=== PATIENT | male | born 1940 | race American Indian/Alaskan Native ===

== ENCOUNTER 2017-07-02 14:46 | Inpatient (IN) | payer MEDICARE ==
[~2017-07-02 14:46] MED LIST: ATIVAN IV ONE
[2017-07-02] MEDS ORDERED: ATIVAN ONE ×2 (15:08→16:57)
[2017-07-02 15:58] LABS: Albumin 3.3 g/dL (3.9-5); Albumin/Globulin Ratio 1.2 %; Bilirubin,Total 0.4 mg/dL (0.1-1.2); Calcium 7.2 mg/dL (8.4-10.2); Chloride 85.6 mmol/L (98-107); Magnesium 2.1 mg/dL (1.7-2.3); Potassium 4.9 mmol/L (3.6-5.0); Total Protein 6.1 g/dL (6.3-8.2)
[2017-07-02 16:02] LABS: Mean Corpuscular HGB Conc 30 % (32-34); Mean Corpuscular Hemoglobin 29 pg (28-32); Mean Corpuscular Volume 96 fl (84-94); Platelet Count 130 K/mm3 (140-440); Red Blood Count 3.47 M/mm3 (3.65-5.03); Red Cell Distribution Width 15.4 % (13.2-15.2); White Blood Count 13.5 K/mm3 (4.5-11.0)
[2017-07-02 16:10] LABS: Hematocrit 33.1 % (35.5-45.6); Hemoglobin 9.9 gm/dl (11.8-15.2)
--- NOTE | 2017-07-02 16:25 | Emergency Department Report ---
ED General Adult HPI - General Chief complaint: Altered Mental Status Stated complaint: AMS Time Seen by Provider: 07/02/17 15:09 Source: EMS Mode of arrival: Stretcher Limitations: Altered Mental Status - History of Present Illness Initial comments: Pt is a 76 year old male pmhx of CHF, DM, CKD and HTN who presents with altered mental status. Pt was in assisted care facility when he had a seizure. Pt was unresponsive and EMS was called. Pt doesn't have a history of seizures . Further history is limited due to the patients altered mental status. - Related Data Home Medications Medication Instructions Recorded Confirmed Last Taken Ascorbic Acid [Vitamin C] 500 mg PO DAILY 06/26/17 07/02/17 Unknown Bisacodyl [Laxative] 5 mg PO DAILY 06/26/17 07/02/17 Unknown Calcitriol [Rocaltrol] 0.25 mcg PO DAILY 06/26/17 07/02/17 Unknown Carvedilol [Coreg] 12.5 mg PO BID 06/26/17 07/02/17 Unknown Ferrous Sulfate [Feosol 325 MG tab] 325 mg PO BID 06/26/17 07/02/17 Unknown Folic Acid [Folvite] 1 mg PO QDAY 06/26/17 07/02/17 Unknown Insulin Lispro [Humalog 100 0 units SQ AC 06/26/17 07/02/17 Unknown UNITS/ML Kwikpen] Multivitamin Tab W-MINERAL 1 each PO QD 06/26/17 07/02/17 Unknown [Multiple Vitamin/Mineral (Theragran M)] Previous Rx's Medication Instructions Recorded Last Taken Type Aspirin EC [Aspirin Enteric Coated 81 mg PO QDAY #90 tablet. 11/19/14 Unknown Rx TAB] amLODIPine [Norvasc] 5 mg PO DAILY #90 tab 11/19/14 Unknown Rx Cephalexin [Keflex] 500 mg PO Q8HR 3 Days 06/28/17 Unknown Rx Insulin NPH/Regular [NovoLIN 70/30] 10 unit SUB-Q BIDDIAB 30 Days 06/28/17 Unknown Rx Allergies Allergy/AdvReac Type Severity Reaction Status Date / Time No Known Allergies Allergy Unverified 11/17/14 12:29 ED Review of Systems ROS: Stated complaint: AMS Other details as noted in HPI ED Past Medical Hx - Past Medical History Previous Medical History?: Yes Hx Hypertension: Yes Hx Diabetes: Yes Hx Renal Disease: Yes - Surgical History Additional Surgical History: neck surgery - Social History Smoking Status: Unknown if ever smoked Substance Use Type: None - Medications Home Medications: Home Medications Medication Instructions Recorded Confirmed Last Taken Type Aspirin EC [Aspirin Enteric Coated 81 mg PO QDAY #90 tablet. 11/19/14 Unknown Rx TAB] amLODIPine [Norvasc] 5 mg PO DAILY #90 tab 11/19/14 07/02/17 Unknown Rx Ascorbic Acid [Vitamin C] 500 mg PO DAILY 06/26/17 07/02/17 Unknown History Bisacodyl [Laxative] 5 mg PO DAILY 06/26/17 07/02/17 Unknown History Calcitriol [Rocaltrol] 0.25 mcg PO DAILY 06/26/17 07/02/17 Unknown History Carvedilol [Coreg] 12.5 mg PO BID 06/26/17 07/02/17 Unknown History Ferrous Sulfate [Feosol 325 MG tab] 325 mg PO BID 06/26/17 07/02/17 Unknown History Folic Acid [Folvite] 1 mg PO QDAY 06/26/17 07/02/17 Unknown History Insulin Lispro [Humalog 100 0 units SQ AC 06/26/17 07/02/17 Unknown History UNITS/ML Kwikpen] Multivitamin Tab W-MINERAL 1 each PO QD 06/26/17 07/02/17 Unknown History [Multiple Vitamin/Mineral (Theragran M)] Cephalexin [Keflex] 500 mg PO Q8HR 3 Days 06/28/17 07/02/17 Unknown Rx Insulin NPH/Regular [NovoLIN 70/30] 10 unit SUB-Q BIDDIAB 30 Days 06/28/1707/02 Unknown Rx ED Physical Exam - General Limitations: Altered Mental Status General appearance: in no apparent distress, lethargic - Head Head exam: Present: atraumatic, normocephalic - Eye Eye exam: Present: normal appearance - ENT ENT exam: Present: mucous membranes moist - Neck Neck exam: Present: normal inspection - Respiratory Respiratory exam: Present: normal lung sounds bilaterally, other (right dialysis chest port ). Absent: respiratory distress - Cardiovascular Cardiovascular Exam: Present: regular rate, normal rhythm. Absent: systolic murmur, diastolic murmur, rubs, gallop - GI/Abdominal GI/Abdominal exam: Present: soft, normal bowel sounds - Rectal Rectal exam: Present: deferred - Extremities Exam Extremities exam: Present: normal inspection - Back Exam Back exam: Present: normal inspection - Neurological Exam Neurological exam: Present: altered - Psychiatric Psychiatric exam: Present: other (altered) - Skin Skin exam: Present: warm, dry, intact, normal color. Absent: rash ED Course Vital Signs 07/02/17 07/02/17 07/02/17 15:00 15:01 15:30 Pulse Rate 85 82 Respiratory 16 12 Rate Blood Pressure 141/72 141/72 138/72 O2 Sat by Pulse 96 97 100 Oximetry 07/02/17 07/02/17 07/02/17 16:00 16:52 17:00 Pulse Rate 80 82 82 Respiratory 11 L 11 L 11 L Rate Blood Pressure 133/68 138/72 139/71 O2 Sat by Pulse 99 100 99 Oximetry 07/02/17 07/02/17 07/02/17 17:30 17:48 19:00 Pulse Rate 81 75 Respiratory 12 16 10 L Rate Blood Pressure 142/74 146/79 O2 Sat by Pulse 100 100 100 Oximetry 07/02/17 07/02/17 07/02/17 19:16 19:30 19:46 Pulse Rate 78 34 L 98 H Respiratory 9 L 0 L 14 Rate Blood Pressure 146/79 159/87 O2 Sat by Pulse 100 48 L Oximetry 07/02/17 07/02/17 07/02/17 20:00 20:05 20:15 Pulse Rate 62 85 78 Respiratory 12 19 Rate Blood Pressure 50/31 109/74 109/74 O2 Sat by Pulse 99 Oximetry 07/02/17 07/02/17 20:30 20:46 Pulse Rate 96 H 105 H Respiratory 18 18 Rate Blood Pressure 108/75 114/80 O2 Sat by Pulse 99 100 Oximetry - Reevaluation(s) Reevaluation #1: 07/02/17 21:56 Pt has been admitted to the ICU he is stable on the ventilator - Central Line Placement Right Femoral Consent Obtained: emergent situation Time Out Performed: Yes Patient Placed on Monitor/Pulse Ox: Yes Prep: mask, gown, gloves Central Line Prep: Chlorhexidine scrub, sterile drapes applied Ultrasound Used for Placement: Yes Central Line Lumen Inserted: triple Bloods Obtained for Lab: Yes Central Line Position: good blood return, all ports aspirated, flus, sutured in place with 2-0 Dressing Applied: Tegaderm Patient Tolerated Procedure: no complications Complications: none - Intubation Time Out Performed: No Sedative: none Paralytic: other (none) Laryngoscope: Karrie Size: 3 ET Tube Size: 7.5 Tube Secured Location: teeth Tube Placement Confirmation: visualized tube passing t, equal breath sounds bilat, no breath sounds over epi Patient Tolerated Procedure: well, other ED Medical Decision Making - Lab Data Result diagrams: 07/02/17 15:03 07/02/17 Unknown Lab Results 07/02/17 07/02/17 07/02/17 Range/Units 15:03 15:12 15:35 WBC 13.5 H (4.5-11.0) K/mm3 RBC 3.47 L (3.65-5.03) M/mm3 Hgb 9.9 L (11.8-15.2) gm/dl Hct 33.1 L (35.5-45.6) % MCV 96 H (84-94) fl MCH 29 (28-32) pg MCHC 30 L (32-34) % RDW 15.4 H (13.2-15.2) % Plt Count 130 L (140-440) K/mm3 Add Manual Diff Complete Total Counted 100 Seg Neutrophils % [place]im[place] Seg Neuts % (Manual) 95.0 H (40.0-70.0) % Band Neutrophils % 0 % Lymphocytes % (Manual) 3.0 L (13.4-35.0) % Reactive Lymphs % (Man) 0 % Monocytes % (Manual) 2.0 (0.0-7.3) % Eosinophils % (Manual) 0 (0.0-4.3) % Basophils % (Manual) 0 (0.0-1.8) % Metamyelocytes % 0 % Myelocytes % 0 % Promyelocytes % 0 % Blast Cells % 0 % Nucleated RBC % Not Reportable Seg Neutrophils # Man 12.8 H (1.8-7.7) K/mm3 Band Neutrophils # 0.0 K/mm3 Lymphocytes # (Manual) 0.4 L (1.2-5.4) K/mm3 Abs React Lymphs (Man) 0.0 K/mm3 Monocytes # (Manual) 0.3 (0.0-0.8) K/mm3 Eosinophils # (Manual) 0.0 (0.0-0.4) K/mm3 Basophils # (Manual) 0.0 (0.0-0.1) K/mm3 Metamyelocytes # 0.0 K/mm3 Myelocytes # 0.0 K/mm3 Promyelocytes # 0.0 K/mm3 Blast Cells # 0.0 K/mm3 WBC Morphology Not Reportable Hypersegmented Neuts Not Reportable Hyposegmented Neuts Not Reportable Hypogranular Neuts Not Reportable Smudge Cells Not Reportable Toxic Granulation Not Reportable Toxic Vacuolation Not Reportable Dohle Bodies Not Reportable Pelger-Huet Anomaly Not Reportable [place] Rods Not Reportable Platelet Estimate Consistent w auto Clumped Platelets Not Reportable Plt Clumps, EDTA Not Reportable Large Platelets Not Reportable Giant Platelets Not Reportable Platelet Satelliting Not Reportable Plt Morphology Comment Not Reportable RBC Morphology Not Reportable Dimorphic RBCs Not Reportable Polychromasia Not Reportable Hypochromasia Not Reportable Poikilocytosis Few Anisocytosis Not Reportable Microcytosis Not Reportable Macrocytosis Not Reportable Spherocytes Not Reportable Pappenheimer Bodies Not Reportable Sickle Cells Not Reportable Target Cells Not Reportable Tear Drop Cells Not Reportable Ovalocytes Not Reportable Helmet Cells Not Reportable [place] Bodies Not Reportable [place] Rings Not Reportable Bianca Cells Not Reportable Bite Cells Not Reportable Crenated Cell Not Reportable Elliptocytes 1+ Acanthocytes (Spur) Not Reportable Rouleaux Not Reportable Hemoglobin C Crystals Not Reportable Schistocytes Not Reportable Malaria parasites Not Reportable Morales Bodies Not Reportable Hem Pathologist Commnt No Sodium (137-145) mmol/L Potassium (3.6-5.0) mmol/L Chloride (98-107) mmol/L Carbon Dioxide (22-30) mmol/L Anion Gap mmol/L BUN (9-20) mg/dL Creatinine (0.8-1.5) mg/dL Estimated GFR ml/min BUN/Creatinine Ratio % Glucose (75-100) mg/dL POC Glucose > 500 H (70-105) Osmolality 357 Mosm/kg Lactic Acid (0.7-2.0) mmol/L Calcium (8.4-10.2) mg/dL Phosphorus (2.5-4.5) mg/dL Magnesium (1.7-2.3) mg/dL Total Bilirubin (0.1-1.2) mg/dL AST (5-40) units/L ALT (7-56) units/L Alkaline Phosphatase (35-129) units/L Total Protein (6.3-8.2) g/dL Albumin (3.9-5) g/dL Albumin/Globulin Ratio % TSH (0.270-4.200) mlU/mL Urine Color (Yellow) Urine Turbidity (Clear) Urine pH (5.0-7.0) Ur Specific [place] (1.003-1.030) Urine Protein (Negative) mg/dL Urine Glucose (UA) (Negative) mg/dL Urine Ketones (Negative) mg/dL Urine Blood (Negative) Urine Nitrite (Negative) Urine Bilirubin (Negative) Urine Urobilinogen (<2.0) mg/dL Ur Leukocyte Esterase (Negative) Urine WBC (Auto) (0.0-6.0) /HPF Urine RBC (Auto) (0.0-6.0) /HPF U Epithel Cells (Auto) (0-13.0) /HPF Salicylates (2.8-20.0) mg/dL Urine Opiates Screen Urine Methadone Screen Acetaminophen (10.0-30.0) ug/mL Ur Barbiturates Screen Ur Phencyclidine Scrn Ur Amphetamines Screen U Benzodiazepines Scrn Urine Cocaine Screen U Marijuana (THC) Screen Drugs of Abuse Note Plasma/Serum Alcohol (0-0.07) gm% 07/02/17 07/02/17 07/02/17 Range/Units 17:25 17:25 17:49 WBC (4.5-11.0) K/mm3 RBC (3.65-5.03) M/mm3 Hgb (11.8-15.2) gm/dl Hct (35.5-45.6) % MCV (84-94) fl MCH (28-32) pg MCHC (32-34) % RDW (13.2-15.2) % Plt Count (140-440) K/mm3 Add Manual Diff Total Counted Seg Neutrophils % Seg Neuts % (Manual) (40.0-70.0) % Band Neutrophils % % Lymphocytes % (Manual) (13.4-35.0) % Reactive Lymphs % (Man) % Monocytes % (Manual) (0.0-7.3) % Eosinophils % (Manual) (0.0-4.3) % Basophils % (Manual) (0.0-1.8) % Metamyelocytes % % Myelocytes % % Promyelocytes % % Blast Cells % % Nucleated RBC % Seg Neutrophils # Man (1.8-7.7) K/mm3 Band Neutrophils # K/mm3 Lymphocytes # (Manual) (1.2-5.4) K/mm3 Abs React Lymphs (Man) K/mm3 Monocytes # (Manual) (0.0-0.8) K/mm3 Eosinophils # (Manual) (0.0-0.4) K/mm3 Basophils # (Manual) (0.0-0.1) K/mm3 Metamyelocytes # K/mm3 Myelocytes # K/mm3 Promyelocytes # K/mm3 Blast Cells # K/mm3 WBC Morphology Hypersegmented Neuts Hyposegmented Neuts Hypogranular Neuts Smudge Cells Toxic Granulation Toxic Vacuolation Dohle Bodies Pelger-Huet Anomaly [place] Rods Platelet Estimate Clumped Platelets Plt Clumps, EDTA Large Platelets Giant Platelets Platelet Satelliting Plt Morphology Comment RBC Morphology Dimorphic RBCs Polychromasia Hypochromasia Poikilocytosis Anisocytosis Microcytosis Macrocytosis Spherocytes Pappenheimer Bodies Sickle Cells Target Cells Tear Drop Cells Ovalocytes Helmet Cells Kim-[place] Bodies [place] Rings Bianca Cells Bite Cells Crenated Cell Elliptocytes Acanthocytes (Spur) Rouleaux Hemoglobin C Crystals Schistocytes Malaria parasites Morales Bodies Hem Pathologist Commnt Sodium (137-145) mmol/L Potassium (3.6-5.0) mmol/L Chloride (98-107) mmol/L Carbon Dioxide (22-30) mmol/L Anion Gap mmol/L BUN (9-20) mg/dL Creatinine (0.8-1.5) mg/dL Estimated GFR ml/min BUN/Creatinine Ratio % Glucose (75-100) mg/dL POC Glucose (70-105) Osmolality Mosm/kg Lactic Acid 7.80 H* (0.7-2.0) mmol/L Calcium (8.4-10.2) mg/dL Phosphorus (2.5-4.5) mg/dL Magnesium (1.7-2.3) mg/dL Total Bilirubin (0.1-1.2) mg/dL AST (5-40) units/L ALT (7-56) units/L Alkaline Phosphatase (35-129) units/L Total Protein (6.3-8.2) g/dL Albumin (3.9-5) g/dL Albumin/Globulin Ratio % TSH (0.270-4.200) mlU/mL Urine Color Yellow (Yellow) Urine Turbidity Clear (Clear) Urine pH 5.0 (5.0-7.0) Ur Specific [place] 1.018 (1.003-1.030) Urine Protein 100 mg/dl (Negative) mg/dL Urine Glucose (UA) >=500 (Negative) mg/dL Urine Ketones Neg (Negative) mg/dL Urine Blood Sm (Negative) Urine Nitrite Neg (Negative) Urine Bilirubin Neg (Negative) Urine Urobilinogen < 2.0 (<2.0) mg/dL Ur Leukocyte Esterase Neg (Negative) Urine WBC (Auto) 1.0 (0.0-6.0) /HPF Urine RBC (Auto) 2.0 (0.0-6.0) /HPF U Epithel Cells (Auto) 1.0 (0-13.0) /HPF Salicylates (2.8-20.0) mg/dL Urine Opiates Screen Presumptive negative Urine Methadone Screen Presumptive negative Acetaminophen (10.0-30.0) ug/mL Ur Barbiturates Screen Presumptive negative Ur Phencyclidine Scrn Presumptive negative Ur Amphetamines Screen Presumptive negative U Benzodiazepines Scrn Presumptive negative Urine Cocaine Screen Presumptive negative U Marijuana (THC) Screen Presumptive negative Drugs of Abuse Note Disclamer Plasma/Serum Alcohol (0-0.07) gm% 07/02/17 07/02/17 07/02/17 Range/Units 20:29 20:29 Unknown WBC (4.5-11.0) K/mm3 RBC (3.65-5.03) M/mm3 Hgb (11.8-15.2) gm/dl Hct (35.5-45.6) % MCV (84-94) fl MCH (28-32) pg MCHC (32-34) % RDW (13.2-15.2) % Plt Count (140-440) K/mm3 Add Manual Diff Total Counted Seg Neutrophils % Seg Neuts % (Manual) (40.0-70.0) % Band Neutrophils % % Lymphocytes % (Manual) (13.4-35.0) % Reactive Lymphs % (Man) % Monocytes % (Manual) (0.0-7.3) % Eosinophils % (Manual) (0.0-4.3) % Basophils % (Manual) (0.0-1.8) % Metamyelocytes % % Myelocytes % % Promyelocytes % % Blast Cells % % Nucleated RBC % Seg Neutrophils # Man (1.8-7.7) K/mm3 Band Neutrophils # K/mm3 Lymphocytes # (Manual) (1.2-5.4) K/mm3 Abs React Lymphs (Man) K/mm3 Monocytes # (Manual) (0.0-0.8) K/mm3 Eosinophils # (Manual) (0.0-0.4) K/mm3 Basophils # (Manual) (0.0-0.1) K/mm3 Metamyelocytes # K/mm3 Myelocytes # K/mm3 Promyelocytes # K/mm3 Blast Cells # K/mm3 WBC Morphology Hypersegmented Neuts Hyposegmented Neuts Hypogranular Neuts Smudge Cells Toxic Granulation Toxic Vacuolation Dohle Bodies Pelger-Huet Anomaly [place] Rods Platelet Estimate Clumped Platelets Plt Clumps, EDTA Large Platelets Giant Platelets Platelet Satelliting Plt Morphology Comment RBC Morphology Dimorphic RBCs Polychromasia Hypochromasia Poikilocytosis Anisocytosis Microcytosis Macrocytosis Spherocytes Pappenheimer Bodies Sickle Cells Target Cells Tear Drop Cells Ovalocytes Helmet Cells Kim-[place] Bodies [place] Rings Bianca Cells Bite Cells Crenated Cell Elliptocytes Acanthocytes (Spur) Rouleaux Hemoglobin C Crystals Schistocytes Malaria parasites Morales Bodies Hem Pathologist Commnt Sodium 129 L 125 L D (137-145) mmol/L Potassium 4.0 4.9 D (3.6-5.0) mmol/L Chloride 87.2 L 85.6 L (98-107) mmol/L Carbon Dioxide 18 L 19 L D (22-30) mmol/L Anion Gap 28 25 mmol/L BUN 51 H 50 H (9-20) mg/dL Creatinine 4.3 H 4.4 H D (0.8-1.5) mg/dL Estimated GFR 16 16 ml/min BUN/Creatinine Ratio 12 11 % Glucose 950 H* 1113 H* (75-100) mg/dL POC Glucose (70-105) Osmolality Mosm/kg Lactic Acid (0.7-2.0) mmol/L Calcium 7.1 L 7.2 L (8.4-10.2) mg/dL Phosphorus 2.90 (2.5-4.5) mg/dL Magnesium 2.20 2.10 (1.7-2.3) mg/dL Total Bilirubin 0.40 (0.1-1.2) mg/dL AST 31 (5-40) units/L ALT 23 (7-56) units/L Alkaline Phosphatase 139 H (35-129) units/L Total Protein 6.1 L (6.3-8.2) g/dL Albumin 3.3 L (3.9-5) g/dL Albumin/Globulin Ratio 1.2 % TSH (0.270-4.200) mlU/mL Urine Color (Yellow) Urine Turbidity (Clear) Urine pH (5.0-7.0) Ur Specific [place] (1.003-1.030) Urine Protein (Negative) mg/dL Urine Glucose (UA) (Negative) mg/dL Urine Ketones (Negative) mg/dL Urine Blood (Negative) Urine Nitrite (Negative) Urine Bilirubin (Negative) Urine Urobilinogen (<2.0) mg/dL Ur Leukocyte Esterase (Negative) Urine WBC (Auto) (0.0-6.0) /HPF Urine RBC (Auto) (0.0-6.0) /HPF U Epithel Cells (Auto) (0-13.0) /HPF Salicylates (2.8-20.0) mg/dL Urine Opiates Screen Urine Methadone Screen Acetaminophen (10.0-30.0) ug/mL Ur Barbiturates Screen Ur Phencyclidine Scrn Ur Amphetamines Screen U Benzodiazepines Scrn Urine Cocaine Screen U Marijuana (THC) Screen Drugs of Abuse Note Plasma/Serum Alcohol (0-0.07) gm% 07/02/17 07/02/17 07/02/17 Range/Units Unknown Unknown Unknown WBC (4.5-11.0) K/mm3 RBC (3.65-5.03) M/mm3 Hgb (11.8-15.2) gm/dl Hct (35.5-45.6) % MCV (84-94) fl MCH (28-32) pg MCHC (32-34) % RDW (13.2-15.2) % Plt Count (140-440) K/mm3 Add Manual Diff Total Counted Seg Neutrophils % Seg Neuts % (Manual) (40.0-70.0) % Band Neutrophils % % Lymphocytes % (Manual) (13.4-35.0) % Reactive Lymphs % (Man) % Monocytes % (Manual) (0.0-7.3) % Eosinophils % (Manual) (0.0-4.3) % Basophils % (Manual) (0.0-1.8) % Metamyelocytes % % Myelocytes % % Promyelocytes % % Blast Cells % % Nucleated RBC % Seg Neutrophils # Man (1.8-7.7) K/mm3 Band Neutrophils # K/mm3 Lymphocytes # (Manual) (1.2-5.4) K/mm3 Abs React Lymphs (Man) K/mm3 Monocytes # (Manual) (0.0-0.8) K/mm3 Eosinophils # (Manual) (0.0-0.4) K/mm3 Basophils # (Manual) (0.0-0.1) K/mm3 Metamyelocytes # K/mm3 Myelocytes # K/mm3 Promyelocytes # K/mm3 Blast Cells # K/mm3 WBC Morphology Hypersegmented Neuts Hyposegmented Neuts Hypogranular Neuts Smudge Cells Toxic Granulation Toxic Vacuolation Dohle Bodies Pelger-Huet Anomaly [place] Rods Platelet Estimate Clumped Platelets Plt Clumps, EDTA Large Platelets Giant Platelets Platelet Satelliting Plt Morphology Comment RBC Morphology Dimorphic RBCs Polychromasia Hypochromasia Poikilocytosis Anisocytosis Microcytosis Macrocytosis Spherocytes Pappenheimer Bodies Sickle Cells Target Cells Tear Drop Cells Ovalocytes Helmet Cells Kim-[place] Bodies [place] Rings [place] Cells Bite Cells Crenated Cell Elliptocytes Acanthocytes (Spur) Rouleaux Hemoglobin C Crystals Schistocytes Malaria parasites Morales Bodies Hem Pathologist Commnt Sodium (137-145) mmol/L Potassium (3.6-5.0) mmol/L Chloride (98-107) mmol/L Carbon Dioxide (22-30) mmol/L Anion Gap mmol/L BUN (9-20) mg/dL Creatinine (0.8-1.5) mg/dL Estimated GFR ml/min BUN/Creatinine Ratio % Glucose (75-100) mg/dL POC Glucose (70-105) Osmolality Mosm/kg Lactic Acid 6.30 H* (0.7-2.0) mmol/L Calcium (8.4-10.2) mg/dL Phosphorus (2.5-4.5) mg/dL Magnesium (1.7-2.3) mg/dL Total Bilirubin (0.1-1.2) mg/dL AST (5-40) units/L ALT (7-56) units/L Alkaline Phosphatase (35-129) units/L Total Protein (6.3-8.2) g/dL Albumin (3.9-5) g/dL Albumin/Globulin Ratio % TSH 3.200 (0.270-4.200) mlU/mL Urine Color (Yellow) Urine Turbidity (Clear) Urine pH (5.0-7.0) Ur Specific [place] (1.003-1.030) Urine Protein (Negative) mg/dL Urine Glucose (UA) (Negative) mg/dL Urine Ketones (Negative) mg/dL Urine Blood (Negative) Urine Nitrite (Negative) Urine Bilirubin (Negative) Urine Urobilinogen (<2.0) mg/dL Ur Leukocyte Esterase (Negative) Urine WBC (Auto) (0.0-6.0) /HPF Urine RBC (Auto) (0.0-6.0) /HPF U Epithel Cells (Auto) (0-13.0) /HPF Salicylates < 0.3 L (2.8-20.0) mg/dL Urine Opiates Screen Urine Methadone Screen Acetaminophen (10.0-30.0) ug/mL Ur Barbiturates Screen Ur Phencyclidine Scrn Ur Amphetamines Screen U Benzodiazepines Scrn Urine Cocaine Screen U Marijuana (THC) Screen Drugs of Abuse Note Plasma/Serum Alcohol (0-0.07) gm% 07/02/17 07/02/17 Range/Units Unknown Unknown WBC (4.5-11.0) K/mm3 RBC (3.65-5.03) M/mm3 Hgb (11.8-15.2) gm/dl Hct (35.5-45.6) % MCV (84-94) fl MCH (28-32) pg MCHC (32-34) % RDW (13.2-15.2) % Plt Count (140-440) K/mm3 Add Manual Diff Total Counted Seg Neutrophils % Seg Neuts % (Manual) (40.0-70.0) % Band Neutrophils % % Lymphocytes % (Manual) (13.4-35.0) % Reactive Lymphs % (Man) % Monocytes % (Manual) (0.0-7.3) % Eosinophils % (Manual) (0.0-4.3) % Basophils % (Manual) (0.0-1.8) % Metamyelocytes % % Myelocytes % % Promyelocytes % % Blast Cells % % Nucleated RBC % Seg Neutrophils # Man (1.8-7.7) K/mm3 Band Neutrophils # K/mm3 Lymphocytes # (Manual) (1.2-5.4) K/mm3 Abs React Lymphs (Man) K/mm3 Monocytes # (Manual) (0.0-0.8) K/mm3 Eosinophils # (Manual) (0.0-0.4) K/mm3 Basophils # (Manual) (0.0-0.1) K/mm3 Metamyelocytes # K/mm3 Myelocytes # K/mm3 Promyelocytes # K/mm3 Blast Cells # K/mm3 WBC Morphology Hypersegmented Neuts Hyposegmented Neuts Hypogranular Neuts Smudge Cells Toxic Granulation Toxic Vacuolation Dohle Bodies Pelger-Huet Anomaly [place] Rods Platelet Estimate Clumped Platelets Plt Clumps, EDTA Large Platelets Giant Platelets Platelet Satelliting Plt Morphology Comment RBC Morphology Dimorphic RBCs Polychromasia Hypochromasia Poikilocytosis Anisocytosis Microcytosis Macrocytosis Spherocytes Pappenheimer Bodies Sickle Cells Target Cells Tear Drop Cells Ovalocytes Helmet Cells Kim-[place] Bodies [place] Rings [place] Cells Bite Cells Crenated Cell Elliptocytes Acanthocytes (Spur) Rouleaux Hemoglobin C Crystals Schistocytes Malaria parasites Morales Bodies Hem Pathologist Commnt Sodium (137-145) mmol/L Potassium (3.6-5.0) mmol/L Chloride (98-107) mmol/L Carbon Dioxide (22-30) mmol/L Anion Gap mmol/L BUN (9-20) mg/dL Creatinine (0.8-1.5) mg/dL Estimated GFR ml/min BUN/Creatinine Ratio % Glucose (75-100) mg/dL POC Glucose (70-105) Osmolality Mosm/kg Lactic Acid (0.7-2.0) mmol/L Calcium (8.4-10.2) mg/dL Phosphorus (2.5-4.5) mg/dL Magnesium (1.7-2.3) mg/dL Total Bilirubin (0.1-1.2) mg/dL AST (5-40) units/L ALT (7-56) units/L Alkaline Phosphatase (35-129) units/L Total Protein (6.3-8.2) g/dL Albumin (3.9-5) g/dL Albumin/Globulin Ratio % TSH (0.270-4.200) mlU/mL Urine Color (Yellow) Urine Turbidity (Clear) Urine pH (5.0-7.0) Ur Specific [place] (1.003-1.030) Urine Protein (Negative) mg/dL Urine Glucose (UA) (Negative) mg/dL Urine Ketones (Negative) mg/dL Urine Blood (Negative) Urine Nitrite (Negative) Urine Bilirubin (Negative) Urine Urobilinogen (<2.0) mg/dL Ur Leukocyte Esterase (Negative) Urine WBC (Auto) (0.0-6.0) /HPF Urine RBC (Auto) (0.0-6.0) /HPF U Epithel Cells (Auto) (0-13.0) /HPF Salicylates (2.8-20.0) mg/dL Urine Opiates Screen Urine Methadone Screen Acetaminophen < 15.0 (10.0-30.0) ug/mL Ur Barbiturates Screen Ur Phencyclidine Scrn Ur Amphetamines Screen U Benzodiazepines Scrn Urine Cocaine Screen U Marijuana (THC) Screen Drugs of Abuse Note Plasma/Serum Alcohol < 0.01 (0-0.07) gm% - Radiology Data Radiology results: report reviewed CT head: Shows slight interval increase in the ventricles Cxr: shows s/p ETT placement and right hemodialysis catheter. - Medical Decision Making Cdx: DKA ddx: HONK, subdural hemorrhage, PNA, sepsis,stemi I will give patient cbc,cmp, fluids, troponin ,cxr insulin drip, fluids, blood cultures Patient had a cardiac arrest in the ED he recieved chest compressions for approximately 10+ minutes. Pt regained ROSC in the ED. He will be placed on insulin gtt and levophed gtt with emperic antibiotics . He had to be intubated due to respiratory failure. Critical Care Time: Yes (70) Critical care time in (mins) excluding proc time.: 70 Critical care attestation.: If time is entered above; I have spent that time in minutes in the direct care of this critically ill patient, excluding procedure time. Critical care time spent at patients bedside 40 minutes Critical care time spent reviewing labratory findings 20 minutes Critical care time spent reviewing old medical records 10 minutes Critical care time spent with consultants 0 minutes Critical care time spent with patient's family 0 minutes. ED Disposition Clinical Impression: Seizures, Cardiac arrest, Lactic acid acidosis, Metabolic encephalopathy Respiratory failure Qualifiers: Chronicity: acute Respiratory failure complication: hypoxia and hypercapnia Qualified Code(s): J96.01 - Acute respiratory failure with hypoxia; J96.02 - Acute respiratory failure with hypercapnia; J96.02 - Acute respiratory failure with hypercapnia; J96.02 - Acute respiratory failure with hypercapnia DKA (diabetic ketoacidoses) Qualifiers: Diabetes mellitus type: type 1 Diabetes mellitus complication detail: with coma Qualified Code(s): E10.11 - Type 1 diabetes mellitus with ketoacidosis with coma Disposition: DC-09 OP ADMIT IP TO THIS HOSP Is pt being admited?: Yes Does the pt Need Aspirin: No Condition: Stable
[2017-07-02] MEDS ORDERED: NACL 0.9% 1000 ML 1,000 ML IV ONE ×5 (16:33→19:04)
--- NOTE | 2017-07-02 16:44 | Cat Scan Report ---
CT HEAD WITHOUT CONTRAST INDICATION: Seizures, altered mental status. COMPARISON: 11/17/2014. FINDINGS: Noncontrast head CT demonstrates overall symmetric, age-appropriate ventricles and sulci, though diffuse prominence/enlargement of the ventricles noted. An index maximum transverse measurement of the left frontal horn now is 1.6 cm, axial series 2, image 20, previously 1 cm. Moderate periventricular and few white matter hypodense small vessel ischemic disease. Small basal ganglia lacunar infarcts also again noted. No acute infarct, hemorrhage, mass effect or midline shift. No abnormal extra axial fluid collections. Exam in part limited due to motion artifact. Grossly normal posterior fossa with preserved basilar cisterns. Small 4 mm left maxillary sinus mucous retention cyst again noted. Clear remainder imaged paranasal sinuses and mastoid air cells. Mild ICA atherosclerotic calcifications. Normal calvarium and scalp. Edentulous jaw. CONCLUSION: 1. Interval ventricular enlargement since October 2014, as detailed above, possibly progression of atrophy, though normal pressure hydrocephalus may be correlated for clinically in an appropriate setting. 2. No acute intracranial CT abnormality with other findings, as above. Thank you for the opportunity to participate in this patient's care.
[2017-07-02 16:48] LABS: Basophils % (Manual) 0 % (0.0-1.8); Blastocytes % (Manual) 0 %; Eosinophils % (Manual) 0 % (0.0-4.3)
[2017-07-02 16:49] LABS: Elliptocytes 1+
[2017-07-02 16:50] LABS: Diff Status Complete; Platelet Estimate Consistent w Auto; Poikilocytosis Few
[2017-07-02 17:42] LABS: Urine Drugs of Abuse Note Disclamer
[2017-07-02 17:56] LABS: Bilirubin,Urine NEG (Negative); Blood,Urine SM (Negative); Ketones,Urine NEG (Negative); Leukocyte Esterase,Urine NEG (Negative); Nitrite,Urine NEG (Negative); Urobilinogen,Urine < 2.0 mg/dL (<2.0)
--- NOTE | 2017-07-02 19:25 | XRay Report ---
FINAL REPORT EXAM: XR CHEST 1V AP HISTORY: chest pain TECHNIQUE: Chest single AP PRIORS: None. FINDINGS: There is right dialysis catheter catheter tip at the SVC. Cardiac silhouette is within normal range for size given technique. There is a small right pleural effusion. Left lung is unremarkable. Pulmonary vasculature is within normal limits. There is no evidence for pneumothorax. IMPRESSION: Right pleural effusion Dialysis catheter in satisfactory position
[2017-07-02] MEDS ORDERED: LEVOPHED DRIP 4 MG/NS 250 ML 4 MG/250 ML BAG IV ONE (19:32)
[2017-07-02] MEDS ORDERED: LEVOPHED DRIP 4 MG/NS 250 ML 4 MG/250 ML BAG IV SCH (19:45)
[2017-07-02] MEDS ORDERED: ATROPINE IV ONE (19:50)
[2017-07-02] MEDS ORDERED: ADRENALIN IV ONE (19:50)
[2017-07-02] MEDS ORDERED: VASELINE LIP THERAPY TP PRN (20:05)
--- NOTE | 2017-07-02 20:11 | History and Physical Report ---
History of Present Illness Chief complaint: Confused History of present illness: 76 YO Male [employer] Res[employer] with HTN, DM, ESRD on HD(M,W,F), Severe Malnutrition, presents to ED for evaluation. Pt unable to provide history. Pt found to have new onset seizure at [facility] that was witnessed by SNF staff. EMS was notified and upon arrival patient was found to by stuporous. Pt transported to [facility] for evaluation. Pt seen and evaluated in ED and found to be in respiratory distress. Pt subsequently found to have asystolic arrest. Pt treated IAW ACLS protocol with return of perfusing cardiac rhythm. Pt found to have Acute respiratory failure and was intubated and placed on vent support. Pt also found to be hypotensive after cardiac arrest and placed on pressor support. Serum glucose found to be above 1000, and patient was in DKA. DKA protocol initiated. Pt admitted to ICU. Past History Past Medical History: diabetes, ESRD, hypertension Past Surgical History: Other (Permacath placement) Social history: single. denies: smoking, alcohol abuse Family history: no significant family history Medications and Allergies Allergies Allergy/AdvReac Type Severity Reaction Status Date / Time No Known Allergies Allergy Unverified 11/17/14 12:29 Home Medications Medication Instructions Recorded Confirmed Last Taken Type Aspirin EC [Aspirin Enteric Coated 81 mg PO QDAY #90 tablet. 11/19/14 Unknown Rx TAB] amLODIPine [Norvasc] 5 mg PO DAILY #90 tab 11/19/14 07/02/17 Unknown Rx Ascorbic Acid [Vitamin C] 500 mg PO DAILY 06/26/17 07/02/17 Unknown History Bisacodyl [Laxative] 5 mg PO DAILY 06/26/17 07/02/17 Unknown History Calcitriol [Rocaltrol] 0.25 mcg PO DAILY 06/26/17 07/02/17 Unknown History Carvedilol [Coreg] 12.5 mg PO BID 06/26/17 07/02/17 Unknown History Ferrous Sulfate [Feosol 325 MG tab] 325 mg PO BID 06/26/17 07/02/17 Unknown History Folic Acid [Folvite] 1 mg PO QDAY 06/26/17 07/02/17 Unknown History Insulin Lispro [Humalog 100 0 units SQ AC 06/26/17 07/02/17 Unknown History UNITS/ML Kwikpen] Multivitamin Tab W-MINERAL 1 each PO QD 06/26/17 07/02/17 Unknown History [Multiple Vitamin/Mineral (Theragran M)] Cephalexin [Keflex] 500 mg PO Q8HR 3 Days 06/28/17 07/02/17 Unknown Rx Insulin NPH/Regular [NovoLIN 70/30] 10 unit SUB-Q BIDDIAB 30 Days 06/28/1707/02 Unknown Rx Active Meds: Active Medications Hydrophilic Ointment (Vaseline Lip Therapy) 1 applic TP Q2HR PRN PRN Reason: Dry Lips Review of Systems ROS unobtainable: due to mental status Exam - Constitutional Vitals: Temp Pulse Resp BP Pulse Ox 81 16 142/74 100 07/02/17 17:30 07/02/17 17:48 07/02/17 17:30 07/02/17 17:48 General appearance: Present: severe distress - EENT Eyes: Present: miosis - Neck Neck: Present: supple, normal ROM - Respiratory Respiratory effort: labored Respiratory: bilateral: diminished, rhonchi - Cardiovascular Heart Sounds: Present: S1 & S2. Absent: rub, click - Extremities Extremities: pulses symmetrical, No edema Extremity abnormal: edema Peripheral Pulses: abnormal (Capillary Refill: 4 seconds) - Abdominal General gastrointestinal: Present: soft, non-tender, non-distended Male genitourinary: Present: normal - Rectal Rectal Exam: normal exam-external/orifice - Integumentary Integumentary: Present: clear, dry, clammy, decreased turgor - Musculoskeletal Musculoskeletal: generalized weakness - Psychiatric Psychiatric: no intact judgment & insight, no memory intact - Neurologic Neurologic: focal deficits, no gait normal Results - Labs CBC & Chem 7: 07/02/17 15:03 07/03/17 02:15 Labs: Abnormal lab results 07/02/17 07/02/17 07/02/17 Range/Units 15:03 15:12 17:49 WBC 13.5 H (4.5-11.0) K/mm3 RBC 3.47 L (3.65-5.03) M/mm3 Hgb 9.9 L (11.8-15.2) gm/dl Hct 33.1 L (35.5-45.6) % MCV 96 H (84-94) fl MCHC 30 L (32-34) % RDW 15.4 H (13.2-15.2) % Plt Count 130 L (140-440) K/mm3 Seg Neuts % (Manual) 95.0 H (40.0-70.0) % Lymphocytes % (Manual) 3.0 L (13.4-35.0) % Seg Neutrophils # Man 12.8 H (1.8-7.7) K/mm3 Lymphocytes # (Manual) 0.4 L (1.2-5.4) K/mm3 Sodium (137-145) mmol/L Chloride (98-107) mmol/L Carbon Dioxide (22-30) mmol/L BUN (9-20) mg/dL Creatinine (0.8-1.5) mg/dL Glucose (75-100) mg/dL POC Glucose > 500 H (70-105) Lactic Acid 7.80 H* (0.7-2.0) mmol/L Calcium (8.4-10.2) mg/dL Alkaline Phosphatase (35-129) units/L Total Protein (6.3-8.2) g/dL Albumin (3.9-5) g/dL Salicylates (2.8-20.0) mg/dL 07/02/17 07/02/17 07/02/17 Range/Units Unknown Unknown Unknown WBC (4.5-11.0) K/mm3 RBC (3.65-5.03) M/mm3 Hgb (11.8-15.2) gm/dl Hct (35.5-45.6) % MCV (84-94) fl MCHC (32-34) % RDW (13.2-15.2) % Plt Count (140-440) K/mm3 Seg Neuts % (Manual) (40.0-70.0) % Lymphocytes % (Manual) (13.4-35.0) % Seg Neutrophils # Man (1.8-7.7) K/mm3 Lymphocytes # (Manual) (1.2-5.4) K/mm3 Sodium 125 L D (137-145) mmol/L Chloride 85.6 L (98-107) mmol/L Carbon Dioxide 19 L D (22-30) mmol/L BUN 50 H (9-20) mg/dL Creatinine 4.4 H D (0.8-1.5) mg/dL Glucose 1113 H* (75-100) mg/dL POC Glucose (70-105) Lactic Acid 6.30 H* (0.7-2.0) mmol/L Calcium 7.2 L (8.4-10.2) mg/dL Alkaline Phosphatase 139 H (35-129) units/L Total Protein 6.1 L (6.3-8.2) g/dL Albumin 3.3 L (3.9-5) g/dL Salicylates < 0.3 L (2.8-20.0) mg/dL Assessment and Plan - Patient Problems (1) Acute respiratory failure Current Visit: No Status: Acute Qualifiers: Respiratory failure complication: R Plan to address problem: Pt intubated, sedated, placed on vent support, Pulmonary team consulted, ABG, wean vent as tolerated, nebulizer therapy, SBT in AM, Sedation holiday in AM, The high probability of a clinically significant, sudden or life threatening deterioration of the [Cardiac, pulmonary, endocrine, renal] system(s) required my full and direct attention, intervention and personal management. The aggregate critical care time was [70] minutes. This time is in addition to time spent performing reported procedures but includes the following: [x] Data Review and interpretation [x] Patient assessment and monitoring of vital signs [x] Documentation [x] Medication orders and management (2) DKA (diabetic ketoacidoses) Current Visit: Yes Status: Acute Qualifiers: Diabetes mellitus type: type 1 Diabetes mellitus complication detail: with coma Qualified Code(s): E10.11 - Type 1 diabetes mellitus with ketoacidosis with coma Plan to address problem: Insulin drip protocol, serial bmp, monitor anion gap, IVF resuscitation, (3) Cardiac arrest Current Visit: Yes Status: Acute (4) Lactic acid acidosis Current Visit: Yes Status: Acute Plan to address problem: Secondary to DKA, and Cardiac arrest, IVF resuscitation, treat DKA, repeat lactic acid level (5) Metabolic encephalopathy Current Visit: Yes Status: Acute Plan to address problem: Secondary to DKA complicated by cardiac arrest, supportive care, neuro checks. CT head (6) Anoxic brain damage Current Visit: Yes Status: Suspected Plan to address problem: S/P Cardiac arrest. Supportive care, neuro checks, Treat DKA, CT head, Neuro checks during sedation holiday. Repeat CT head if no improvement in neurologic status. (7) DVT prophylaxis Current Visit: No Status: Acute
[2017-07-02] MEDS ORDERED: MILK OF MAGNESIA PO PRN (20:17)
[2017-07-02] MEDS ORDERED: ALUM-MAG HYDROX-SIMETH 200-200-20MG/5ML PO PRN (20:17)
[2017-07-02] MEDS ORDERED: DULCOLAX PR PRN (20:17)
[2017-07-02] MEDS ORDERED: VANCOMYCIN VIAL IV ONE (20:19)
[2017-07-02] MEDS ORDERED: D50W (25GM) Vial IV PRN (20:22)
[2017-07-02 20:47] LABS: Calcium 7.1 mg/dL (8.4-10.2); Chloride 87.2 mmol/L (98-107); Magnesium 2.2 mg/dL (1.7-2.3); Phosphorous 2.9 mg/dL (2.5-4.5)
[2017-07-02] MEDS ORDERED: NACL 0.9% 1000 ML IV ONE (21:00)
[2017-07-02] MEDS ORDERED: VANCOMYCIN PHARMACY TO DOSE IV SCH (21:00)
[2017-07-02] MEDS ORDERED: NACL 0.9% 1000 ML 1,000 ML ONE (21:18)
[2017-07-02] MEDS ORDERED: NovoLIN R 100 UNITS in NACL 0.9% 99 ML IV SCH (21:30)
[2017-07-02] MEDS ORDERED: ZOSYN/NS 4.5GM/100ML 4.5 GM/100 ML VIAL IV SCH (22:00)
[2017-07-02] MEDS ORDERED: VANCOMYCIN/NS 1 GM/250 ML 1 GM/250 ML BAG IV ONE (22:00)
[2017-07-02] MEDS ORDERED: FEOSOL PO SCH (22:00)
[2017-07-02 22:13] LABS: Calcium 6.8 mg/dL (8.4-10.2); Chloride 93.7 mmol/L (98-107); Potassium 4.6 mmol/L (3.6-5.0)
[2017-07-02] MEDS ORDERED: PEPCID IV ONE (22:23)
[2017-07-02] MEDS: NACL 0.9% 1000 ML 1,000 ML IV ONE (23:30)
[2017-07-02] MEDS: COREG PO SCH (23:52)
[2017-07-03] MEDS: NACL 0.9% 1000 ML 1,000 ML IV ONE (00:01)
[2017-07-03 00:12] LABS: Calcium 6.7 mg/dL (8.4-10.2); Chloride 94.6 mmol/L (98-107); Potassium 4.7 mmol/L (3.6-5.0)
[2017-07-03] MEDS: ZOSYN/NS 2.25 GM/50ML 2.25 GM/50 ML BAG IV SCH ×4 (01:05→22:17)
[2017-07-03 01:47] LABS: Calcium 6.6 mg/dL (8.4-10.2); Chloride 96.4 mmol/L (98-107); Potassium 4.3 mmol/L (3.6-5.0)
[2017-07-03 02:54] LABS: Calcium 6.6 mg/dL (8.4-10.2); Chloride 97.6 mmol/L (98-107)
[2017-07-03 04:51] LABS: ISTAT Base Excess -9; ISTAT HCO3 16.9; ISTAT PCO2 33.5 (35-45); ISTAT PH 7.311 (7.35-7.45); ISTAT PO2 73 (80-105); ISTAT SO2 93; ISTAT TCO2 18
[2017-07-03 04:59] LABS: Calcium 6.8 mg/dL (8.4-10.2); Chloride 98.5 mmol/L (98-107); Potassium 3.9 mmol/L (3.6-5.0)
--- NOTE | 2017-07-03 07:16 | XRay Report ---
Single view chest: Compared to 07/02/17. History: ET tube placement. Findings: Endotracheal tube is in the right mainstem bronchus. It should be withdrawn approximately 4 cm. Stable right large bore venous catheter. Moderate right pleural effusion with mild pulmonary venous congestion. Impression: Tip of endotracheal tube should be adjusted as detailed above.
--- NOTE | 2017-07-03 07:34 | XRay Report ---
Single view chest: Compared to 07/02/17. History: Followup of respiratory failure. Findings: Normal cardiomediastinal silhouette. Stable support system. Bilateral airspace opacities. Increasing airspace opacities compared to previous study. Impression: Probably fluid overload or congestive failure. Less likely bilateral pneumonia
[2017-07-03] MEDS: D5/0.45NS 1,000 ML IV SCH (10:27)
--- NOTE | 2017-07-03 11:18 | XRay Report ---
Single view abdomen: History: Dobbhoff placement. Findings: Tip of the above finding is noted in the mid stomach. Impression: Tip of the above finding tube is noted in the stomach.
[2017-07-03] MEDS ORDERED: ADRENALIN ONE (11:20)
[2017-07-03] MEDS ORDERED: SODIUM BICARBONATE IV ONE (11:20)
[2017-07-03] MEDS ORDERED: ATROPINE 0.1% (CARDIAC) ONE (11:20)
[2017-07-03] MEDS ORDERED: PNEUMOVAX 23 IM ONE (12:00)
[2017-07-03] MEDS ORDERED: Fluarix Quad 2017-2018(36 MOS+ IM ONE (12:00)
[2017-07-03 12:49] LABS: Calcium 7.2 mg/dL (8.4-10.2); Chloride 105.3 mmol/L (98-107); Potassium 4.6 mmol/L (3.6-5.0)
--- NOTE | 2017-07-03 13:01 | Consultation ---
History of Present Illness - Reason for Consult Consult date: 07/03/17 (consult dictated) Past History Past Medical History: diabetes, ESRD, hypertension Past Surgical History: Other (Permacath placement) Social history: single. denies: smoking, alcohol abuse Family history: no significant family history Medications and Allergies Allergies Allergy/AdvReac Type Severity Reaction Status Date / Time No Known Allergies Allergy Unverified 11/17/14 12:29 Home Medications Medication Instructions Recorded Confirmed Last Taken Type Aspirin EC [Aspirin Enteric Coated 81 mg PO QDAY #90 tablet. 11/19/14 Unknown Rx TAB] amLODIPine [Norvasc] 5 mg PO DAILY #90 tab 11/19/14 07/02/17 Unknown Rx Ascorbic Acid [Vitamin C] 500 mg PO DAILY 06/26/17 07/02/17 Unknown History Bisacodyl [Laxative] 5 mg PO DAILY 06/26/17 07/02/17 Unknown History Calcitriol [Rocaltrol] 0.25 mcg PO DAILY 06/26/17 07/02/17 Unknown History Carvedilol [Coreg] 12.5 mg PO BID 06/26/17 07/02/17 Unknown History Ferrous Sulfate [Feosol 325 MG tab] 325 mg PO BID 06/26/17 07/02/17 Unknown History Folic Acid [Folvite] 1 mg PO QDAY 06/26/17 07/02/17 Unknown History Insulin Lispro [Humalog 100 0 units SQ AC 06/26/17 07/02/17 Unknown History UNITS/ML Kwikpen] Multivitamin Tab W-MINERAL 1 each PO QD 06/26/17 07/02/17 Unknown History [Multiple Vitamin/Mineral (Theragran M)] Cephalexin [Keflex] 500 mg PO Q8HR 3 Days 06/28/17 07/02/17 Unknown Rx Insulin NPH/Regular [NovoLIN 70/30] 10 unit SUB-Q BIDDIAB 30 Days 06/28/1707/02 Unknown Rx Active Meds: Active Medications Al Hydrox/Mg Hydrox/Simethicone (Alum-Mag Hydrox-Simeth [id number]/5ml) 30 ml PO Q4H PRN PRN Reason: Indigestion Aspirin (Halfprin Ec) 81 mg PO QDAY CAST[place]O Bisacodyl (Dulcolax) 10 mg MI QDAY PRN PRN Reason: constipation unrelieved by MOM Calcitriol (Rocaltrol) 0.25 mcg PO DAILY CA[facility]O Carvedilol (Coreg) 12.5 mg PO BID CA[facility]O Last Admin: 07/02/17 23:52 Dose: Not Given Dextrose (D50w (25gm) Vial) 0 gm IV PRN PRN PRN Reason: Hypoglycemia Ferrous Sulfate (Ferrous Sulfate) 300 mg PO BID CA[facility] Folic Acid (Folvite) 1 mg PO QDAY [place] Hydrophilic Ointment (Vaseline Lip Therapy) 1 applic TP Q2HR PRN PRN Reason: Dry Lips Insulin Human Regular 100 (units/ Sodium Chloride) 100 mls @ 1 mls/hr IV TITR CASTILLO; 1 UNITS/HR PRN Reason: Protocol Last Titration: 07/03/17 09:58 Dose: 0 units/hr, 0 mls/hr Piperacillin Sod/Tazobactam Sod (Zosyn/Ns 2.25 Gm/50ml) 2.25 gm in 50 mls @ 100 mls/hr IV Q8H CA[facility]O Last Admin: 07/03/17 06:26 Dose: 100 mls/hr Norepinephrine (Levophed Drip 4 Mg/Ns 250 Ml) 4 mg in 250 mls @ 7.5 mls/hr IV TITR CA[facility]ILLO; 2 MCG/MIN PRN Reason: Protocol Last Titration: 07/02/17 22:29 Dose: Infused Dextrose/Sodium Chloride (D5/0.45ns) 1,000 mls @ 42 mls/hr IV DIRECT CA[facility]O Last Admin: 07/03/17 10:27 Dose: 42 mls/hr Insulin Human Isoph/Insulin Regular (Novolin 70/30) 10 unit SUB-Q BIDDIAB [place] Magnesium Hydroxide (Milk Of Magnesia) 30 ml PO Q4H PRN PRN Reason: Constipation Multivitamins/Minerals (Theragran-M Tab) 1 each PO QDAY [place]O Vancomycin HCl (Vancomycin Pharmacy To Dose) 1 each IV PKCONSULT CA[facility]ILLO PRN Reason: Protocol Exam - Constitutional Vitals: Temp Pulse Resp BP Pulse Ox 97.4 F L 108 H 31 H 132/77 96 07/03/17 07:24 07/03/17 12:42 07/03/17 12:16 07/03/17 12:42 07/03/17 12:42 Results - Labs CBC & Chem 7: 07/02/17 15:03 07/03/17 Unknown Labs: Abnormal lab results 07/02/17 07/02/17 07/02/17 Range/Units 20:29 21:31 23:38 POC ABG pH (7.35-7.45) POC ABG pCO2 (35-45) POC ABG pO2 (80-105) Sodium 129 L 132 L (137-145) mmol/L Chloride 87.2 L 93.7 L (98-107) mmol/L Carbon Dioxide 18 L 15 L (22-30) mmol/L BUN 51 H 47 H (9-20) mg/dL Creatinine 4.3 H 4.1 H (0.8-1.5) mg/dL Glucose 950 H* 825 H* (75-100) mg/dL POC Glucose (70-105) Lactic Acid 5.70 H* (0.7-2.0) mmol/L Calcium 7.1 L 6.8 L (8.4-10.2) mg/dL Alkaline Phosphatase (35-129) units/L C-Reactive Protein (0.00-1.30) mg/dL Total Protein (6.3-8.2) g/dL Albumin (3.9-5) g/dL Salicylates (2.8-20.0) mg/dL 07/02/17 07/02/17 07/02/17 Range/Units 23:38 23:44 Unknown POC ABG pH (7.35-7.45) POC ABG pCO2 (35-45) POC ABG pO2 (80-105) Sodium 132 L 125 L D (137-145) mmol/L Chloride 94.6 L 85.6 L (98-107) mmol/L Carbon Dioxide 17 L 19 L D (22-30) mmol/L BUN 51 H 50 H (9-20) mg/dL Creatinine 4.1 H 4.4 H D (0.8-1.5) mg/dL Glucose 772 H* 1113 H* (75-100) mg/dL POC Glucose > 500 H (70-105) Lactic Acid (0.7-2.0) mmol/L Calcium 6.7 L 7.2 L (8.4-10.2) mg/dL Alkaline Phosphatase 139 H (35-129) units/L C-Reactive Protein (0.00-1.30) mg/dL Total Protein 6.1 L (6.3-8.2) g/dL Albumin 3.3 L (3.9-5) g/dL Salicylates (2.8-20.0) mg/dL 07/02/17 07/02/17 07/03/17 Range/Units Unknown Unknown 01:00 POC ABG pH (7.35-7.45) POC ABG pCO2 (35-45) POC ABG pO2 (80-105) Sodium 134 L (137-145) mmol/L Chloride 96.4 L (98-107) mmol/L Carbon Dioxide 19 L (22-30) mmol/L BUN 50 H (9-20) mg/dL Creatinine 4.0 H (0.8-1.5) mg/dL Glucose 677 H* (75-100) mg/dL POC Glucose (70-105) Lactic Acid 6.30 H* (0.7-2.0) mmol/L Calcium 6.6 L (8.4-10.2) mg/dL Alkaline Phosphatase (35-129) units/L C-Reactive Protein (0.00-1.30) mg/dL Total Protein (6.3-8.2) g/dL Albumin (3.9-5) g/dL Salicylates < 0.3 L (2.8-20.0) mg/dL 07/03/17 07/03/17 07/03/17 Range/Units 01:04 02:15 02:15 POC ABG pH (7.35-7.45) POC ABG pCO2 (35-45) POC ABG pO2 (80-105) Sodium 134 L (137-145) mmol/L Chloride 97.6 L (98-107) mmol/L Carbon Dioxide 19 L (22-30) mmol/L BUN 50 H (9-20) mg/dL Creatinine 4.2 H (0.8-1.5) mg/dL Glucose 592 H* (75-100) mg/dL POC Glucose > 500 H (70-105) Lactic Acid 4.30 H* (0.7-2.0) mmol/L Calcium 6.6 L (8.4-10.2) mg/dL Alkaline Phosphatase (35-129) units/L C-Reactive Protein (0.00-1.30) mg/dL Total Protein (6.3-8.2) g/dL Albumin (3.9-5) g/dL Salicylates (2.8-20.0) mg/dL 07/03/17 07/03/17 07/03/17 Range/Units 02:21 03:25 04:10 POC ABG pH (7.35-7.45) POC ABG pCO2 (35-45) POC ABG pO2 (80-105) Sodium (137-145) mmol/L Chloride (98-107) mmol/L Carbon Dioxide 19 L (22-30) mmol/L BUN 50 H (9-20) mg/dL Creatinine 4.0 H (0.8-1.5) mg/dL Glucose 416 H (75-100) mg/dL POC Glucose 482 H > 500 H (70-105) Lactic Acid (0.7-2.0) mmol/L Calcium 6.8 L (8.4-10.2) mg/dL Alkaline Phosphatase (35-129) units/L C-Reactive Protein (0.00-1.30) mg/dL Total Protein (6.3-8.2) g/dL Albumin (3.9-5) g/dL Salicylates (2.8-20.0) mg/dL 07/03/17 07/03/17 07/03/17 Range/Units 04:30 04:36 05:33 POC ABG pH 7.311 L (7.35-7.45) POC ABG pCO2 33.5 L (35-45) POC ABG pO2 73 L (80-105) Sodium (137-145) mmol/L Chloride (98-107) mmol/L Carbon Dioxide (22-30) mmol/L BUN (9-20) mg/dL Creatinine (0.8-1.5) mg/dL Glucose (75-100) mg/dL POC Glucose 389 H 326 H (70-105) Lactic Acid (0.7-2.0) mmol/L Calcium (8.4-10.2) mg/dL Alkaline Phosphatase (35-129) units/L C-Reactive Protein (0.00-1.30) mg/dL Total Protein (6.3-8.2) g/dL Albumin (3.9-5) g/dL Salicylates (2.8-20.0) mg/dL 07/03/17 07/03/17 07/03/17 Range/Units 06:06 07:38 Unknown POC ABG pH (7.35-7.45) POC ABG pCO2 (35-45) POC ABG pO2 (80-105) Sodium (137-145) mmol/L Chloride (98-107) mmol/L Carbon Dioxide (22-30) mmol/L BUN (9-20) mg/dL Creatinine (0.8-1.5) mg/dL Glucose (75-100) mg/dL POC Glucose 247 H 118 H (70-105) Lactic Acid 2.40 H* (0.7-2.0) mmol/L Calcium (8.4-10.2) mg/dL Alkaline Phosphatase (35-129) units/L C-Reactive Protein (0.00-1.30) mg/dL Total Protein (6.3-8.2) g/dL Albumin (3.9-5) g/dL Salicylates (2.8-20.0) mg/dL 07/03/17 07/03/17 Range/Units Unknown Unknown POC ABG pH (7.35-7.45) POC ABG pCO2 (35-45) POC ABG pO2 (80-105) Sodium (137-145) mmol/L Chloride (98-107) mmol/L Carbon Dioxide (22-30) mmol/L BUN 52 H (9-20) mg/dL Creatinine 4.3 H (0.8-1.5) mg/dL Glucose (75-100) mg/dL POC Glucose (70-105) Lactic Acid (0.7-2.0) mmol/L Calcium 7.2 L (8.4-10.2) mg/dL Alkaline Phosphatase (35-129) units/L C-Reactive Protein 1.90 H (0.00-1.30) mg/dL Total Protein (6.3-8.2) g/dL Albumin (3.9-5) g/dL Salicylates (2.8-20.0) mg/dL
--- NOTE | 2017-07-03 13:31 | Consultation ---
History of Present Illness Consult date: 07/03/17 Reason for consult: other (acute hypoxemic respiratory failure, s/p PEA arrest, Hyperosmolar ) History of present illness: 76 YO Male Long-Term Resident with HTN, DM, ESRD on HD(M,W,F), Severe Malnutrition, presents to ED for evaluation. Pt unable to provide history. Pt found to have new onset seizure at [facility] that was witnessed by SNF staff. EMS was notified and upon arrival patient was found to by stuporous. Pt transported to [facility] for evaluation. Pt seen and evaluated in ED and found to be in respiratory distress. Pt subsequently found to have asystolic arrest. Pt treated IAW ACLS protocol with return of perfusing cardiac rhythm. Pt found to have Acute respiratory failure and was intubated and placed on vent support. Pt also found to be hypotensive after cardiac arrest and placed on pressor support. Serum glucose found to be above 1000, and patient was in DKA. DKA protocol initiated. Pt admitted to ICU. We have been consulted for ventilator and critical care managment. Thank you Past History Past Medical History: diabetes, ESRD, hypertension Past Surgical History: Other (Permacath placement) Social history: single. denies: smoking, alcohol abuse Family history: no significant family history Medications and Allergies Allergies Allergy/AdvReac Type Severity Reaction Status Date / Time No Known Allergies Allergy Unverified 11/17/14 12:29 Home Medications Medication Instructions Recorded Confirmed Last Taken Type Aspirin EC [Aspirin Enteric Coated 81 mg PO QDAY #90 tablet. 11/19/14 Unknown Rx TAB] amLODIPine [Norvasc] 5 mg PO DAILY #90 tab 11/19/14 07/02/17 Unknown Rx Ascorbic Acid [Vitamin C] 500 mg PO DAILY 06/26/17 07/02/17 Unknown History Bisacodyl [Laxative] 5 mg PO DAILY 06/26/17 07/02/17 Unknown History Calcitriol [Rocaltrol] 0.25 mcg PO DAILY 06/26/17 07/02/17 Unknown History Carvedilol [Coreg] 12.5 mg PO BID 06/26/17 07/02/17 Unknown History Ferrous Sulfate [Feosol 325 MG tab] 325 mg PO BID 06/26/17 07/02/17 Unknown History Folic Acid [Folvite] 1 mg PO QDAY 06/26/17 07/02/17 Unknown History Insulin Lispro [Humalog 100 0 units SQ AC 06/26/17 07/02/17 Unknown History UNITS/ML Kwikpen] Multivitamin Tab W-MINERAL 1 each PO QD 06/26/17 07/02/17 Unknown History [Multiple Vitamin/Mineral (Theragran M)] Cephalexin [Keflex] 500 mg PO Q8HR 3 Days cap 06/28/17 07/02/17 Unknown Rx Insulin NPH/Regular [NovoLIN 70/30] 10 unit SUB-Q BIDDIAB 30 Days 06/28/1707/02 Unknown Rx units Active Meds: Active Medications Al Hydrox/Mg Hydrox/Simethicone (Alum-Mag Hydrox-Simeth 167-408-89iu/5ml) 30 ml PO Q4H PRN PRN Reason: Indigestion Aspirin (Halfprin Ec) 81 mg PO QDAY [facility] Bisacodyl (Dulcolax) 10 mg SD QDAY PRN PRN Reason: constipation unrelieved by MOM Calcitriol (Rocaltrol) 0.25 mcg PO DAILY [facility] Carvedilol (Coreg) 12.5 mg PO BID [facility] Last Admin: 07/02/17 23:52 Dose: Not Given Ferrous Sulfate (Ferrous Sulfate) 300 mg PO BID [facility] Folic Acid (Folvite) 1 mg PO QDAY [facility] Hydrophilic Ointment (Vaseline Lip Therapy) 1 applic TP Q2HR PRN PRN Reason: Dry Lips Piperacillin Sod/Tazobactam Sod (Zosyn/Ns 2.25 Gm/50ml) 2.25 gm in 50 mls @ 100 mls/hr IV Q8H [facility] Last Admin: 07/03/17 06:26 Dose: 100 mls/hr Norepinephrine (Levophed Drip 4 Mg/Ns 250 Ml) 4 mg in 250 mls @ 7.5 mls/hr IV TITR [facility]; 2 MCG/MIN PRN Reason: Protocol Last Titration: 07/02/17 22:29 Dose: Infused Dextrose/Sodium Chloride (D5/0.45ns) 1,000 mls @ 42 mls/hr IV DIRECT [facility] Last Admin: 07/03/17 10:27 Dose: 42 mls/hr Insulin Human Isoph/Insulin Regular (Novolin 70/30) 10 unit SUB-Q BIDDIAB [facility] Last Admin: 07/03/17 08:00 Dose: Not Given Magnesium Hydroxide (Milk Of Magnesia) 30 ml PO Q4H PRN PRN Reason: Constipation Multivitamins/Minerals (Theragran-M Tab) 1 each PO QDAY [facility] Vancomycin HCl (Vancomycin Pharmacy To Dose) 1 each IV PKCONSULT [facility] PRN Reason: Protocol Physical Examination Vital signs: Vital Signs Pulse Resp BP Pulse Ox 85 16 141/72 96 07/02/17 15:00 07/02/17 15:00 07/02/17 15:00 07/02/17 15:00 Constitutional: no acute distress,unresponsive ETT to ventilator. Son at the bedside Eyes: non-icteric ENT: oropharynx moist, other (ETT at 20cm TIKI) Neck: supple, no lymphadenopathy, JVD, other (no thyromegally) Effort: mildly labored Ascultation: Bilateral: diminished breath sounds (bases), rales Percussion: Right: dull (base) Cardiovascular: regular rate and rhythm, other (no rubs / murmurs) Gastrointestinal: normoactive bowel sounds, soft, non-tender, non-distended, other (no HSM) Integumentary: normal Extremities: no cyanosis, no edema, pulses normal, no ischemia or petechiae Neurologic: Unresponsive, pupils equal and round, not obeying any commands Psychiatric: other (unable to assess) Results - Laboratory Findings CBC and BMP: 07/12/17 04:37 07/13/17 04:46 ABG POC ABG pH 7.311 (7.35-7.45) L 07/03/17 04:36 POC ABG pCO2 33.5 (35-45) L 07/03/17 04:36 POC ABG pO2 73 (80-105) L 07/03/17 04:36 POC ABG HCO3 16.9 07/03/17 04:36 POC ABG Total CO2 18 07/03/17 04:36 POC ABG O2 Sat 93 07/03/17 04:36 Abnormal lab findings: Abnormal Labs 07/02/17 07/02/17 07/02/17 20:29 21:31 23:38 POC ABG pH POC ABG pCO2 POC ABG pO2 Sodium 129 L 132 L Chloride 87.2 L 93.7 L Carbon Dioxide 18 L 15 L BUN 51 H 47 H Creatinine 4.3 H 4.1 H Glucose 950 H* 825 H* POC Glucose Lactic Acid 5.70 H* Calcium 7.1 L 6.8 L Alkaline Phosphatase C-Reactive Protein Total Protein Albumin Salicylates 07/02/17 07/02/17 07/02/17 23:38 23:44 Unknown POC ABG pH POC ABG pCO2 POC ABG pO2 Sodium 132 L 125 L D Chloride 94.6 L 85.6 L Carbon Dioxide 17 L 19 L D BUN 51 H 50 H Creatinine 4.1 H 4.4 H D Glucose 772 H* 1113 H* POC Glucose > 500 H Lactic Acid Calcium 6.7 L 7.2 L Alkaline Phosphatase 139 H C-Reactive Protein Total Protein 6.1 L Albumin 3.3 L Salicylates 07/02/17 07/02/17 07/03/17 Unknown Unknown 01:00 POC ABG pH POC ABG pCO2 POC ABG pO2 Sodium 134 L Chloride 96.4 L Carbon Dioxide 19 L BUN 50 H Creatinine 4.0 H Glucose 677 H* POC Glucose Lactic Acid 6.30 H* Calcium 6.6 L Alkaline Phosphatase C-Reactive Protein Total Protein Albumin Salicylates < 0.3 L 07/03/17 07/03/17 07/03/17 01:04 02:15 02:15 POC ABG pH POC ABG pCO2 POC ABG pO2 Sodium 134 L Chloride 97.6 L Carbon Dioxide 19 L BUN 50 H Creatinine 4.2 H Glucose 592 H* POC Glucose > 500 H Lactic Acid 4.30 H* Calcium 6.6 L Alkaline Phosphatase C-Reactive Protein Total Protein Albumin Salicylates 07/03/17 07/03/17 07/03/17 02:21 03:25 04:10 POC ABG pH POC ABG pCO2 POC ABG pO2 Sodium Chloride Carbon Dioxide 19 L BUN 50 H Creatinine 4.0 H Glucose 416 H POC Glucose 482 H > 500 H Lactic Acid Calcium 6.8 L Alkaline Phosphatase C-Reactive Protein Total Protein Albumin Salicylates 07/03/17 07/03/17 07/03/17 04:30 04:36 05:33 POC ABG pH 7.311 L POC ABG pCO2 33.5 L POC ABG pO2 73 L Sodium Chloride Carbon Dioxide BUN Creatinine Glucose POC Glucose 389 H 326 H Lactic Acid Calcium Alkaline Phosphatase C-Reactive Protein Total Protein Albumin Salicylates 1107/03/17 07/03/17 06:06 07:38 09:58 POC ABG pH POC ABG pCO2 POC ABG pO2 Sodium Chloride Carbon Dioxide BUN Creatinine Glucose POC Glucose 247 H 118 H 52 L Lactic Acid Calcium Alkaline Phosphatase C-Reactive Protein Total Protein Albumin Salicylates 07/03/17 07/03/17 07/03/17 11:00 13:16 Unknown POC ABG pH POC ABG pCO2 POC ABG pO2 Sodium Chloride Carbon Dioxide BUN Creatinine Glucose POC Glucose 64 L 112 H Lactic Acid 2.40 H* Calcium Alkaline Phosphatase C-Reactive Protein Total Protein Albumin Salicylates 07/03/17 07/03/17 Unknown Unknown POC ABG pH POC ABG pCO2 POC ABG pO2 Sodium Chloride Carbon Dioxide BUN 52 H Creatinine 4.3 H Glucose POC Glucose Lactic Acid Calcium 7.2 L Alkaline Phosphatase C-Reactive Protein 1.90 H Total Protein Albumin Salicylates - Diagnostic Findings Chest x-ray: image reviewed Assessment and Plan Acute Hypoxemic Respiratory Failure on MVS Seizure Disorder s/p Cardiac Arrest ESRD on Dialysis Sepsis Syndrome Hyperosmolar non ketotic state Anemia Leucocytosis Acute Encephalopathy - lung protective strategies -VAP bundle addressed -initiate enteric feeding once nasogastric tube position is confirmed - Daily SBT and SAT trials - aspiration precautions - wean FiO2 for sats > 94% - bronchodilators and pulmonary toilet - start empiric AB's - continue glycemic control with insulin infusion (target BG <180mg/dl) - GI & VTE prophylaxis -Discussed code status and goals of care with the son--patient is Full code in the event of cardiopulmonary arrest Prognosis----Guarded - continue other care per attending / other consultants ....care plan discussed with son in room and his questions were answered acceptably Critical care time in (mins) excluding proc time.: 62 Critical care attestation.: If time is entered above; I have spent that time in minutes in the direct care of this critically ill patient, excluding procedure time. ED Critical Care Note - Critical Care Note Total Time (mins): 62
--- NOTE | 2017-07-03 14:11 | Progress Note ---
Assessment and Plan Assessment and plan: (1) Acute respiratory failure Continue mechanical ventilation per pulmonary. (2) DKA (diabetic ketoacidoses) Resolved. Discontinue Insulin drip protocol, serial bmp, monitor anion gap, IVF resuscitation. We will start long-acting insulin regimen. I discussed with pharmacy/nursing. (3) Cardiac arrest Cardiology consultation. (4) Lactic acid acidosis Secondary to DKA, and Cardiac arrest, IVF resuscitation, treated DKA, repeat lactic acid level (5) Metabolic encephalopathy Secondary to DKA complicated by cardiac arrest, supportive care, neuro checks. CT head (6) Anoxic brain damage S/P Cardiac arrest. Supportive care, neuro checks, Treat DKA, CT head, Neuro checks during sedation holiday. Repeat CT head if no improvement in neurologic status. Neurology consultation. Check EEG. (7) seizure disorder Neurology consultation pending. Follow-up EEG. (8) DVT prophylaxis Current Visit: No Status: Acute The high probability of a clinically significant, sudden or life threatening deterioration of the [respiratory, endocrine and neurological] system(s) required my full and direct attention, intervention and personal management. The aggregate critical care time was [32] minutes. This time is in addition to time spent performing reported procedures but includes the following: [x] Data Review and interpretation [x] Patient assessment and monitoring of vital signs [x] Documentation [x] Medication orders and management History Interval history: Patient is intubated on mechanical ventilation. Hospitalist Physical - Constitutional Vitals: Temp Pulse Resp BP Pulse Ox 97.4 F L 108 H 31 H 132/77 96 07/03/17 07:24 07/03/17 12:42 07/03/17 12:16 07/03/17 12:42 07/03/17 12:42 General appearance: Present: no acute distress, other (orally intubated) - EENT Eyes: Present: PERRL, EOM intact ENT: hearing intact, clear oral mucosa, dentition normal - Neck Neck: Present: supple, normal ROM - Respiratory Respiratory effort: normal Respiratory: bilateral: CTA - Cardiovascular Rhythm: regular Heart Sounds: Present: S1 & S2. Absent: gallop, rub - Extremities Extremities: no ischemia, No edema, Full ROM - Abdominal General gastrointestinal: soft, non-tender, non-distended, normal bowel sounds - Integumentary Integumentary: Present: clear, warm, dry - Neurologic Neurologic: CNII-XII intact, moves all extremities Results - Labs CBC & Chem 7: 07/02/17 15:03 07/03/17 Unknown Labs: Laboratory Last Values WBC 13.5 K/mm3 (4.5-11.0) H 07/02/17 15:03 RBC 3.47 M/mm3 (3.65-5.03) L 07/02/17 15:03 Hgb 9.9 gm/dl (11.8-15.2) L 07/02/17 15:03 Hct 33.1 % (35.5-45.6) L 07/02/17 15:03 MCV 96 fl (84-94) H 07/02/17 15:03 MCH 29 pg (28-32) 07/02/17 15:03 MCHC 30 % (32-34) L 07/02/17 15:03 RDW 15.4 % (13.2-15.2) H 07/02/17 15:03 Plt Count 130 K/mm3 (140-440) L 07/02/17 15:03 Add Manual Diff Complete 07/02/17 15:03 Total Counted 100 07/02/17 15:03 Seg 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 07/02/17 15:03 Seg Neuts % (Manual) 95.0 % (40.0-70.0) H 07/02/17 15:03 Band Neutrophils % 0 % 07/02/17 15:03 Lymphocytes % (Manual) 3.0 % (13.4-35.0) L 07/02/17 15:03 Reactive Lymphs % (Man) 0 % 07/02/17 15:03 Monocytes % (Manual) 2.0 % (0.0-7.3) 07/02/17 15:03 Eosinophils % (Manual) 0 % (0.0-4.3) 07/02/17 15:03 Basophils % (Manual) 0 % (0.0-1.8) 07/02/17 15:03 Metamyelocytes % 0 % 07/02/17 15:03 Myelocytes % 0 % 07/02/17 15:03 Promyelocytes % 0 % 07/02/17 15:03 Blast Cells % 0 % 07/02/17 15:03 Nucleated RBC % Not Reportable 07/02/17 15:03 Seg Neutrophils # Man 12.8 K/mm3 (1.8-7.7) H 07/02/17 15:03 Band Neutrophils # 0.0 K/mm3 07/02/17 15:03 Lymphocytes # (Manual) 0.4 K/mm3 (1.2-5.4) L 07/02/17 15:03 Abs React Lymphs (Man) 0.0 K/mm3 07/02/17 15:03 Monocytes # (Manual) 0.3 K/mm3 (0.0-0.8) 07/02/17 15:03 Eosinophils # (Manual) 0.0 K/mm3 (0.0-0.4) 07/02/17 15:03 Basophils # (Manual) 0.0 K/mm3 (0.0-0.1) 07/02/17 15:03 Metamyelocytes # 0.0 K/mm3 07/02/17 15:03 Myelocytes # 0.0 K/mm3 07/02/17 15:03 Promyelocytes # 0.0 K/mm3 07/02/17 15:03 Blast Cells # 0.0 K/mm3 07/02/17 15:03 WBC Morphology Not Reportable 07/02/17 15:03 Hypersegmented Neuts Not Reportable 07/02/17 15:03 Hyposegmented Neuts Not Reportable 07/02/17 15:03 Hypogranular Neuts Not Reportable 07/02/17 15:03 Smudge Cells Not Reportable 07/02/17 15:03 Toxic Granulation Not Reportable 07/02/17 15:03 Toxic Vacuolation Not Reportable 07/02/17 15:03 Dohle Bodies Not Reportable 07/02/17 15:03 Pelger-Huet Anomaly Not Reportable 07/02/17 15:03 [place] Rods Not Reportable 07/02/17 15:03 Platelet Estimate Consistent w auto 07/02/17 15:03 Clumped Platelets Not Reportable 07/02/17 15:03 Plt Clumps, EDTA Not Reportable 07/02/17 15:03 Large Platelets Not Reportable 07/02/17 15:03 Giant Platelets Not Reportable 07/02/17 15:03 Platelet Satelliting Not Reportable 07/02/17 15:03 Plt Morphology Comment Not Reportable 07/02/17 15:03 RBC Morphology Not Reportable 07/02/17 15:03 Dimorphic RBCs Not Reportable 07/02/17 15:03 Polychromasia Not Reportable 07/02/17 15:03 Hypochromasia Not Reportable 07/02/17 15:03 Poikilocytosis Few 07/02/17 15:03 Anisocytosis Not Reportable 07/02/17 15:03 Microcytosis Not Reportable 07/02/17 15:03 Macrocytosis Not Reportable 07/02/17 15:03 Spherocytes Not Reportable 07/02/17 15:03 Pappenheimer Bodies Not Reportable 07/02/17 15:03 Sickle Cells Not Reportable 07/02/17 15:03 Target Cells Not Reportable 07/02/17 15:03 Tear Drop Cells Not Reportable 07/02/17 15:03 Ovalocytes Not Reportable 07/02/17 15:03 Helmet Cells Not Reportable 07/02/17 15:03 [place] Bodies Not Reportable 07/02/17 15:03 Farner Rings Not Reportable 07/02/17 15:03 Lebo Cells Not Reportable 07/02/17 15:03 Bite Cells Not Reportable 07/02/17 15:03 Crenated Cell Not Reportable 07/02/17 15:03 Elliptocytes 1+ 07/02/17 15:03 Acanthocytes (Spur) Not Reportable 07/02/17 15:03 Rouleaux Not Reportable 07/02/17 15:03 Hemoglobin C Crystals Not Reportable 07/02/17 15:03 Schistocytes Not Reportable 07/02/17 15:03 Malaria parasites Not Reportable 07/02/17 15:03 Morales Bodies Not Reportable 07/02/17 15:03 Hem Pathologist Commnt No 07/02/17 15:03 POC ABG pH 7.311 (7.35-7.45) L 07/03/17 04:36 POC ABG pCO2 33.5 (35-45) L 07/03/17 04:36 POC ABG pO2 73 (80-105) L 07/03/17 04:36 POC ABG HCO3 16.9 07/03/17 04:36 POC ABG Total CO2 18 07/03/17 04:36 POC ABG O2 Sat 93 07/03/17 04:36 POC ABG Base Excess -9 07/03/17 04:36 FiO2 40 % 07/03/17 04:36 Sodium 143 mmol/L (137-145) 07/03/17 Unknown Potassium 4.6 mmol/L (3.6-5.0) 07/03/17 Unknown Chloride 105.3 mmol/L (98-107) 07/03/17 Unknown Carbon Dioxide 23 mmol/L (22-30) 07/03/17 Unknown Anion Gap 19 mmol/L 07/03/17 Unknown BUN 52 mg/dL (9-20) H 07/03/17 Unknown Creatinine 4.3 mg/dL (0.8-1.5) H 07/03/17 Unknown Estimated GFR 16 ml/min 07/03/17 Unknown BUN/Creatinine Ratio 12 % 07/03/17 Unknown Glucose 76 mg/dL (75-100) 07/03/17 Unknown POC Glucose 112 (70-105) H 07/03/17 13:16 Osmolality 357 Mosm/kg 07/02/17 15:35 Lactic Acid 2.40 mmol/L (0.7-2.0) H* 07/03/17 Unknown Calcium 7.2 mg/dL (8.4-10.2) L 07/03/17 Unknown Phosphorus 2.90 mg/dL (2.5-4.5) 07/02/17 20:29 Magnesium 2.10 mg/dL (1.7-2.3) 07/02/17 Unknown Total Bilirubin 0.40 mg/dL (0.1-1.2) 07/02/17 Unknown AST 31 units/L (5-40) 07/02/17 Unknown ALT 23 units/L (7-56) 07/02/17 Unknown Alkaline Phosphatase 139 units/L (35-129) H 07/02/17 Unknown C-Reactive Protein 1.90 mg/dL (0.00-1.30) H 07/03/17 Unknown Total Protein 6.1 g/dL (6.3-8.2) L 07/02/17 Unknown Albumin 3.3 g/dL (3.9-5) L 07/02/17 Unknown Albumin/Globulin Ratio 1.2 % 07/02/17 Unknown TSH 3.200 mlU/mL (0.270-4.200) 07/02/17 Unknown Urine Color Yellow (Yellow) 07/02/17 17:25 Urine Turbidity Clear (Clear) 07/02/17 17:25 Urine pH 5.0 (5.0-7.0) 07/02/17 17:25 Ur Specific [place] 1.018 (1.003-1.030) 07/02/17 17:25 Urine Protein 100 mg/dl mg/dL (Negative) 07/02/17 17:25 Urine Glucose (UA) >=500 mg/dL (Negative) 07/02/17 17:25 Urine Ketones Neg mg/dL (Negative) 07/02/17 17:25 Urine Blood Sm (Negative) 07/02/17 17:25 Urine Nitrite Neg (Negative) 07/02/17 17:25 Urine Bilirubin Neg (Negative) 07/02/17 17:25 Urine Urobilinogen < 2.0 mg/dL (<2.0) 07/02/17 17:25 Ur Leukocyte Esterase Neg (Negative) 07/02/17 17:25 Urine WBC (Auto) 1.0 /HPF (0.0-6.0) 07/02/17 17:25 Urine RBC (Auto) 2.0 /HPF (0.0-6.0) 07/02/17 17:25 U Epithel Cells (Auto) 1.0 /HPF (0-13.0) 07/02/17 17:25 Salicylates < 0.3 mg/dL (2.8-20.0) L 07/02/17 Unknown Urine Opiates Screen Presumptive negative 07/02/17 17:25 Urine Methadone Screen Presumptive negative 07/02/17 17:25 Acetaminophen < 15.0 ug/mL (10.0-30.0) 07/02/17 Unknown Ur Barbiturates Screen Presumptive negative 07/02/17 17:25 Ur Phencyclidine Scrn Presumptive negative 07/02/17 17:25 Ur Amphetamines Screen Presumptive negative 07/02/17 17:25 U Benzodiazepines Scrn Presumptive negative 07/02/17 17:25 Urine Cocaine Screen Presumptive negative 07/02/17 17:25 U Marijuana (THC) Screen Presumptive negative 07/02/17 17:25 Drugs of Abuse Note Disclamer 07/02/17 17:25 Plasma/Serum Alcohol < 0.01 gm% (0-0.07) 07/02/17 Unknown
[2017-07-03] MEDS: LEVEMIR SUB-Q SCH (15:01)
[2017-07-03] MEDS: HALFPRIN EC PO SCH (15:04)
[2017-07-03] MEDS: ROCALTROL PO SCH (15:05)
[2017-07-03] MEDS: COREG PO SCH ×2 (15:05→22:17)
[2017-07-03] MEDS: PEPCID IV SCH (15:05)
[2017-07-03] MEDS: HEPARIN SUB-Q SCH ×2 (15:06→22:18)
[2017-07-03] MEDS: FOLVITE PO SCH (15:06)
[2017-07-03] MEDS: FERROUS SULFATE PO SCH ×2 (15:07→22:17)
[2017-07-03] MEDS: THERAGRAN-M Tab PO SCH (15:08)
[2017-07-03] MEDS: NOVOLOG SUB-Q SCH ×2 (16:45→18:16)
[2017-07-04] MEDS ORDERED: D50W (25GM) Vial 50 ML IV ONE (00:15)
[2017-07-04] MEDS: NOVOLOG SUB-Q SCH ×5 (00:20→23:35)
[2017-07-04 04:40] LABS: ISTAT Base Excess -7; ISTAT HCO3 17.5; ISTAT PCO2 27.6 (35-45); ISTAT PO2 100 (80-105); ISTAT SO2 98; ISTAT TCO2 18
[2017-07-04] MEDS: ZOSYN/NS 2.25 GM/50ML 2.25 GM/50 ML BAG IV SCH ×3 (06:25→23:07)
[2017-07-04 08:26] LABS: Hematocrit 31.2 % (35.5-45.6); Hemoglobin 10.3 gm/dl (11.8-15.2); Mean Corpuscular HGB Conc 33 % (32-34); Mean Corpuscular Hemoglobin 29 pg (28-32); Mean Corpuscular Volume 88 fl (84-94); Platelet Count 101 K/mm3 (140-440); Red Blood Count 3.55 M/mm3 (3.65-5.03); Red Cell Distribution Width 15.3 % (13.2-15.2)
--- NOTE | 2017-07-04 08:35 | XRay Report ---
PORTABLE CHEST INDICATION: Follow up respiratory failure. COMPARISON: Yesterday. FINDINGS: Portable, frontal chest radiograph, 2:23 AM, 07/04/2017 demonstrates mild interval radiographic worsening of bilateral airspace opacities, greatest centrally and toward the bases, now overall denser and increased on the left. Hazy bibasilar pleural effusions again noted, right more than left with now obscuration of the left hemidiaphragm as well. Dobbhoff tube extends into the stomach and beyond the inferior radiographic radiographic margin. Stable endotracheal tube, right sided dual lumen catheter, EKG leads and osseous structures. CONCLUSION: Interval radiographic worsening of bilateral airspace opacities and pleural effusions, presumed congestive, as described. Please correlate. Thank you for the opportunity to participate in this patient's care.
[2017-07-04 08:37] LABS: White Blood Count 28.3 K/mm3 (4.5-11.0)
[2017-07-04 08:52] LABS: Potassium 4.2 mmol/L (3.6-5.0)
[2017-07-04] MEDS ORDERED: PANCREAZE DR 10,500 UNIT FEEDTUBE PRN (09:39)
[2017-07-04] MEDS ORDERED: SODIUM BICARBONATE FEEDTUBE PRN (09:39)
[2017-07-04] MEDS ORDERED: SIMPLE SYRUP FEEDTUBE PRN (09:39)
[2017-07-04] MEDS: HEPARIN SUB-Q SCH ×2 (10:48→22:58)
[2017-07-04] MEDS: THERAGRAN-M Tab PO SCH (10:49)
[2017-07-04] MEDS: COREG PO SCH ×2 (10:49→22:58)
[2017-07-04] MEDS: FOLVITE PO SCH (10:51)
[2017-07-04] MEDS: HALFPRIN EC PO SCH (10:51)
[2017-07-04] MEDS: PEPCID IV SCH (10:52)
[2017-07-04] MEDS: ROCALTROL PO SCH (10:58)
[2017-07-04] MEDS: LEVEMIR SUB-Q SCH (10:59)
[2017-07-04] MEDS: FERROUS SULFATE PO SCH ×2 (11:33→22:58)
[2017-07-04] MEDS: D5/0.45NS 1,000 ML IV SCH (11:36)
--- NOTE | 2017-07-04 11:42 | Progress Note ---
Assessment and Plan Acute Hypoxemic Respiratory Failure on MVS Seizure Disorder s/p Cardiac Arrest ESRD on Dialysis Sepsis Syndrome Hyperosmolar non ketotic state Anemia Leucocytosis Acute Encephalopathy Thrombocytopenia - reduce set rate to 12/min - begin PSV trials thereafter - continue aspiration precautions / addressing VAP bundle daily - continue to wean FiO2 for sats > 94% - continue enteral nutrition as tolerated - continue bronchodilators and pulmonary toilet - continue empiric AB's but de-escalaye shortly (CRP unremarkable and lactic acidosis resolved) - continue glycemic control withh SSI and levemir (target BG <180mg/dl) - continue GI & VTE prophylaxis - Continue to monitor platelet count while on heparin - continue other care per attending / other consultants - flu and pneumovax addressed per protocol ...case discussed at length during [place] rounds and care plan formulated ....care plan discussed with yennifer in room and her questions were answered acceptably ....38' CCT without overlap Subjective Date of service: 07/04/17 Principal diagnosis: Acute Hypoxemic Resp Failure; S/P Cardiac Arrest; Hyperosmolar Non-ketotic Interval history: Patient is seen today for: Acute Hypoxemic Resp Failure; S/P Cardiac Arrest; Hyperosmolar Non-ketotic Seen and examined at bedside; 24hour events reviewed; nursing and respiratory care staff consulted; no adverse overnight events reported to me; remains on MVS ; AMS is persistent but mildly improved; still lethargic to encephalopathic; off vasopressors; remains oliguric; no emesis or overt aspiration and no high grade fevers. Objective Vital Signs - 12hr 07/03/17 07/04/17 07/04/17 23:46 00:00 00:16 Temperature 97.3 F L Pulse Rate 86 86 76 Pulse Rate [ 90 From Monitor] Respiratory 18 18 18 Rate Blood Pressure 109/67 122/74 122/74 O2 Sat by Pulse 99 100 100 Oximetry 07/04/17 07/04/17 07/04/17 00:30 00:46 01:00 Temperature Pulse Rate 79 79 79 Pulse Rate [ From Monitor] Respiratory 18 16 19 Rate Blood Pressure 122/74 132/76 132/76 O2 Sat by Pulse 100 100 100 Oximetry 07/04/17 07/04/17 07/04/17 01:16 01:30 01:46 Temperature Pulse Rate 78 80 79 Pulse Rate [ From Monitor] Respiratory 18 18 19 Rate Blood Pressure 133/78 133/78 138/74 O2 Sat by Pulse 100 100 100 Oximetry 07/04/17 07/04/17 07/04/17 02:00 02:16 02:30 Temperature Pulse Rate 80 79 79 Pulse Rate [ From Monitor] Respiratory 19 17 18 Rate Blood Pressure 138/74 135/75 129/76 O2 Sat by Pulse 100 99 100 Oximetry 07/04/17 07/04/17 07/04/17 02:46 03:00 03:16 Temperature Pulse Rate 78 79 78 Pulse Rate [ From Monitor] Respiratory 17 18 18 Rate Blood Pressure 129/76 132/75 132/75 O2 Sat by Pulse 100 100 100 Oximetry 07/04/17 07/04/17 07/04/17 03:30 03:46 04:00 Temperature 97.4 F L Pulse Rate 78 78 78 Pulse Rate [ From Monitor] Respiratory 18 17 18 Rate Blood Pressure 132/75 132/75 126/82 O2 Sat by Pulse 100 100 100 Oximetry 07/04/17 07/04/17 07/04/17 04:16 04:30 04:46 Temperature Pulse Rate 87 86 89 Pulse Rate [ From Monitor] Respiratory 17 16 19 Rate Blood Pressure 126/82 126/82 133/84 O2 Sat by Pulse 100 98 100 Oximetry 07/04/17 07/04/17 07/04/17 05:00 05:16 05:30 Temperature Pulse Rate 87 84 81 Pulse Rate [ From Monitor] Respiratory 18 19 18 Rate Blood Pressure 133/84 126/77 123/68 O2 Sat by Pulse 99 99 99 Oximetry 07/04/17 07/04/17 07/04/17 05:46 06:00 06:16 Temperature Pulse Rate 81 86 85 Pulse Rate [ From Monitor] Respiratory 18 18 18 Rate Blood Pressure 123/68 123/70 123/70 O2 Sat by Pulse 99 100 100 Oximetry 07/04/17 07/04/17 07/04/17 06:30 06:46 07:00 Temperature Pulse Rate 85 85 85 Pulse Rate [ From Monitor] Respiratory 18 16 13 Rate Blood Pressure 122/69 122/69 117/71 O2 Sat by Pulse 100 100 100 Oximetry 07/04/1707/04/07/04/17 07:16 07:30 07:46 Temperature Pulse Rate 81 81 80 Pulse Rate [ From Monitor] Respiratory 13 14 12 Rate Blood Pressure 117/71 115/69 115/69 O2 Sat by Pulse 100 100 100 Oximetry 07/04/17 07/04/17 08:00 10:49 Temperature 97.4 F L Pulse Rate 86 82 Pulse Rate [ 82 From Monitor] Respiratory 13 Rate Blood Pressure 118/67 119/64 O2 Sat by Pulse 100 Oximetry Constitutional: no acute distress, lethargic Eyes: non-icteric ENT: oropharynx moist, other (ETT at 20cm TIKI) Neck: supple, no lymphadenopathy, JVD, other (no thyromegally) Effort: mildly labored Ascultation: Bilateral: diminished breath sounds (bases), rales Percussion: Right: dull (base) Cardiovascular: regular rate and rhythm, other (no rubs / murmurs) Gastrointestinal: normoactive bowel sounds, soft, non-tender, non-distended, other (no HSM) Integumentary: normal Extremities: no cyanosis, no edema, pulses normal, no ischemia or petechiae Neurologic: normal mental status, non-focal exam, pupils equal and round, other (no spontaneous limb movements) Psychiatric: other (unable to assess) CBC and BMP: 07/04/17 08:00 07/04/17 08:00 ABG, PT/INR, D-dimer: ABG POC ABG pH 7.410 (7.35-7.45) 07/04/17 04:38 POC ABG pCO2 27.6 (35-45) L 07/04/17 04:38 POC ABG pO2 100 (80-105) 07/04/17 04:38 POC ABG HCO3 17.5 07/04/17 04:38 POC ABG Total CO2 18 07/04/17 04:38 POC ABG O2 Sat 98 07/04/17 04:38 Abnormal lab findings: Abnormal Labs 07/02/17 07/02/17 07/02/17 20:29 21:31 23:38 WBC RBC Hgb Hct RDW Plt Count POC ABG pH POC ABG pCO2 POC ABG pO2 Sodium 129 L 132 L Chloride 87.2 L 93.7 L Carbon Dioxide 18 L 15 L BUN 51 H 47 H Creatinine 4.3 H 4.1 H Glucose 950 H* 825 H* POC Glucose Lactic Acid 5.70 H* Calcium 7.1 L 6.8 L Alkaline Phosphatase C-Reactive Protein Total Protein Albumin Salicylates 07/02/17 07/02/17 07/02/17 23:38 23:44 Unknown WBC RBC Hgb Hct RDW Plt Count POC ABG pH POC ABG pCO2 POC ABG pO2 Sodium 132 L 125 L D Chloride 94.6 L 85.6 L Carbon Dioxide 17 L 19 L D BUN 51 H 50 H Creatinine 4.1 H 4.4 H D Glucose 772 H* 1113 H* POC Glucose > 500 H Lactic Acid Calcium 6.7 L 7.2 L Alkaline Phosphatase 139 H C-Reactive Protein Total Protein 6.1 L Albumin 3.3 L Salicylates 07/02/17 07/02/17 07/03/17 Unknown Unknown 01:00 WBC RBC Hgb Hct RDW Plt Count POC ABG pH POC ABG pCO2 POC ABG pO2 Sodium 134 L Chloride 96.4 L Carbon Dioxide 19 L BUN 50 H Creatinine 4.0 H Glucose 677 H* POC Glucose Lactic Acid 6.30 H* Calcium 6.6 L Alkaline Phosphatase C-Reactive Protein Total Protein Albumin Salicylates < 0.3 L 07/03/17 07/03/17 07/03/17 01:04 02:15 02:15 WBC RBC Hgb Hct RDW Plt Count POC ABG pH POC ABG pCO2 POC ABG pO2 Sodium 134 L Chloride 97.6 L Carbon Dioxide 19 L BUN 50 H Creatinine 4.2 H Glucose 592 H* POC Glucose > 500 H Lactic Acid 4.30 H* Calcium 6.6 L Alkaline Phosphatase C-Reactive Protein Total Protein Albumin Salicylates 07/03/17 07/03/17 07/03/17 02:21 03:25 04:10 WBC RBC Hgb Hct RDW Plt Count POC ABG pH POC ABG pCO2 POC ABG pO2 Sodium Chloride Carbon Dioxide 19 L BUN 50 H Creatinine 4.0 H Glucose 416 H POC Glucose 482 H > 500 H Lactic Acid Calcium 6.8 L Alkaline Phosphatase C-Reactive Protein Total Protein Albumin Salicylates 07/03/17 07/03/17 07/03/17 04:30 04:36 05:33 WBC RBC Hgb Hct RDW Plt Count POC ABG pH 7.311 L POC ABG pCO2 33.5 L POC ABG pO2 73 L Sodium Chloride Carbon Dioxide BUN Creatinine Glucose POC Glucose 389 H 326 H Lactic Acid Calcium Alkaline Phosphatase C-Reactive Protein Total Protein Albumin Salicylates 07/03/17 07/03/17 07/03/17 06:06 07:38 09:58 WBC RBC Hgb Hct RDW Plt Count POC ABG pH POC ABG pCO2 POC ABG pO2 Sodium Chloride Carbon Dioxide BUN Creatinine Glucose POC Glucose 247 H 118 H 52 L Lactic Acid Calcium Alkaline Phosphatase C-Reactive Protein Total Protein Albumin Salicylates 07/03/17 07/03/17 07/03/17 11:00 13:16 15:02 WBC RBC Hgb Hct RDW Plt Count POC ABG pH POC ABG pCO2 POC ABG pO2 Sodium Chloride Carbon Dioxide BUN Creatinine Glucose POC Glucose 64 L 112 H 158 H Lactic Acid Calcium Alkaline Phosphatase C-Reactive Protein Total Protein Albumin Salicylates 07/03/17 07/03/17 07/03/17 18:17 Unknown Unknown WBC RBC Hgb Hct RDW Plt Count POC ABG pH POC ABG pCO2 POC ABG pO2 Sodium Chloride Carbon Dioxide BUN Creatinine Glucose POC Glucose 131 H Lactic Acid 2.40 H* Calcium Alkaline Phosphatase C-Reactive Protein 1.90 H Total Protein Albumin Salicylates 07/03/17 07/04/17 07/04/17 Unknown 00:13 02:04 WBC RBC Hgb Hct RDW Plt Count POC ABG pH POC ABG pCO2 POC ABG pO2 Sodium Chloride Carbon Dioxide BUN 52 H Creatinine 4.3 H Glucose POC Glucose 69 L 111 H Lactic Acid Calcium 7.2 L Alkaline Phosphatase C-Reactive Protein Total Protein Albumin Salicylates 07/04/17 07/04/17 07/04/17 04:38 08:00 08:00 WBC 28.3 H RBC 3.55 L Hgb 10.3 L Hct 31.2 L RDW 15.3 H Plt Count 101 L POC ABG pH POC ABG pCO2 27.6 L POC ABG pO2 Sodium Chloride Carbon Dioxide 20 L BUN 62 H Creatinine 4.7 H Glucose POC Glucose Lactic Acid Calcium 7.0 L Alkaline Phosphatase C-Reactive Protein Total Protein Albumin Salicylates Chest x-ray: image reviewed (increased pulmonary edema pattern with R > L pleural effusions) Allied health notes reviewed: nursing
--- NOTE | 2017-07-04 12:21 | History and Physical Report ---
History of Present Illness Date of examination: 07/04/17 Date of admission: 07/02/17 20:17 Chief complaint: FOCUSED NEUROLOGY CONSULT: C: I am asked to see this 76 A M for eval of coma and an hx of recent Sz HPI: Hx from chart. Pt had a [facility] in his [facility], was brought to the ED in non-ketotic diabetic (IDDM2 gluc 950) coma, CKD BUN 50 Creat 4.4, low Na 129-125, lactic acidosis 6.3, had a PEA arrest in ED, and presently is in coma on pressor amines. Head CT shows volume loss and SVID and old BG lacunes (images reviewed). No further Sz have been observed. An EEG has been ordered. He also has an hx of CHF adn HTN. NEURO EXAM: MS - comatose, follows no commands on pressors and vent, does withdraw both legs sl to deep nox stim, extends arms sl on deep nox stim CN - dysconjugate gase beneath closed lids, no EOM on [place] Maneuver, pupils sl irreg, 3 mm bilat and non-reactive to bright light stim MOT - see above rxn to nox stim. otherwise motionless SENS - perceives nox stim as above CEREB - no coop DTRs - trace at arms, absent KJs and AJs, great toes moot to plantar stim DX IMP: 1. Coma, metabolic, of multifactorial mechanism. Factors are listed above. 2. Hx Sz at [facility], likely sencondary to metabolic factors. RECC: 1. Pursue current mgt 2. Will review EEG to excluse ongoing occult Sz as a contributing factor 3. Go from there. Alceia Schwartz MD Past History Past Medical History: diabetes, ESRD, hypertension Past Surgical History: Other (Permacath placement) Social history: single. denies: smoking, alcohol abuse Family history: no significant family history Medications and Allergies Allergies Allergy/AdvReac Type Severity Reaction Status Date / Time No Known Allergies Allergy Unverified 11/17/14 12:29 Home Medications Medication Instructions Recorded Confirmed Last Taken Type Aspirin EC [Aspirin Enteric Coated 81 mg PO QDAY #90 tablet. 11/19/14 Unknown Rx TAB] amLODIPine [Norvasc] 5 mg PO DAILY #90 tab 11/19/14 07/02/17 Unknown Rx Ascorbic Acid [Vitamin C] 500 mg PO DAILY 06/26/17 07/02/17 Unknown History Bisacodyl [Laxative] 5 mg PO DAILY 06/26/17 07/02/17 Unknown History Calcitriol [Rocaltrol] 0.25 mcg PO DAILY 06/26/17 07/02/17 Unknown History Carvedilol [Coreg] 12.5 mg PO BID 06/26/17 07/02/17 Unknown History Ferrous Sulfate [Feosol 325 MG tab] 325 mg PO BID 06/26/17 07/02/17 Unknown History Folic Acid [Folvite] 1 mg PO QDAY 06/26/17 07/02/17 Unknown History Insulin Lispro [Humalog 100 0 units SQ AC 06/26/17 07/02/17 Unknown History UNITS/ML Kwikpen] Multivitamin Tab W-MINERAL 1 each PO QD 06/26/17 07/02/17 Unknown History [Multiple Vitamin/Mineral (Theragran M)] Cephalexin [Keflex] 500 mg PO Q8HR 3 Days 06/28/17 07/02/17 Unknown Rx Insulin NPH/Regular [NovoLIN 70/30] 10 unit SUB-Q BIDDIAB 30 Days 06/28/1707/02 Unknown Rx Active Meds: Active Medications Al Hydrox/Mg Hydrox/Simethicone (Alum-Mag Hydrox-Simeth 696-443-61ps/5ml) 30 ml PO Q4H PRN PRN Reason: Indigestion Lipase/Protease/Amylase (Pancreaze Dr 10,500 Unit) 1 each FEEDTUBE PRN PRN PRN Reason: For Clogged Feeding Tube Aspirin (Halfprin Ec) 81 mg PO QDAY COUNTS INCLUDE 234 BEDS AT THE [facility] Last Admin: 07/04/17 10:51 Dose: 81 mg Bisacodyl (Dulcolax) 10 mg LA QDAY PRN PRN Reason: constipation unrelieved by MOM Calcitriol (Rocaltrol) 0.25 mcg PO DAILY COUNTS INCLUDE 234 BEDS AT THE [facility] Last Admin: 07/04/17 10:58 Dose: 0.25 mcg Carvedilol (Coreg) 12.5 mg PO BID COUNTS INCLUDE 234 BEDS AT THE [facility] Last Admin: 07/04/17 10:49 Dose: 12.5 mg Famotidine (Pepcid) 20 mg IV QDAY COUNTS INCLUDE 234 BEDS AT THE [facility] Last Admin: 07/04/17 10:52 Dose: 20 mg Ferrous Sulfate (Ferrous Sulfate) 300 mg PO BID COUNTS INCLUDE 234 BEDS AT THE [facility] Last Admin: 07/04/17 11:33 Dose: 300 mg Folic Acid (Folvite) 1 mg PO QDAY COUNTS INCLUDE 234 BEDS AT THE [facility] Last Admin: 07/04/17 10:51 Dose: 1 mg Heparin Sodium (Porcine) (Heparin) 5,000 unit SUB-Q Q12HR COUNTS INCLUDE 234 BEDS AT THE [facility] Last Admin: 07/04/17 10:48 Dose: 5,000 unit Hydrophilic Ointment (Vaseline Lip Therapy) 1 applic TP Q2HR PRN PRN Reason: Dry Lips Last Admin: 07/03/17 15:11 Dose: 1 applic Piperacillin Sod/Tazobactam Sod (Zosyn/Ns 2.25 Gm/50ml) 2.25 gm in 50 mls @ 100 mls/hr IV Q8H COUNTS INCLUDE 234 BEDS AT THE [facility] Last Admin: 07/04/17 06:25 Dose: 100 mls/hr Dextrose/Sodium Chloride (D5/0.45ns) 1,000 mls @ 42 mls/hr IV DIRECT COUNTS INCLUDE 234 BEDS AT THE [facility] Last Admin: 07/04/17 11:36 Dose: 42 mls/hr Insulin Aspart (Novolog) 0 units SUB-Q Q6HR COUNTS INCLUDE 234 BEDS AT THE [facility] PRN Reason: Protocol Last Admin: 07/04/17 11:24 Dose: Not Given Insulin Detemir (Levemir) 10 units SUB-Q QAMDIAB COUNTS INCLUDE 234 BEDS AT THE [facility] Last Admin: 07/04/17 10:59 Dose: 10 units Magnesium Hydroxide (Milk Of Magnesia) 30 ml PO Q4H PRN PRN Reason: Constipation Multivitamins/Minerals (Theragran-M Tab) 1 each PO QDAY COUNTS INCLUDE 234 BEDS AT THE [facility] Last Admin: 07/04/17 10:49 Dose: 1 each Simple Syrup (Simple Syrup) 15 ml FEEDTUBE PRN PRN PRN Reason: Hypoglycemia Simple Syrup (Simple Syrup) 30 ml FEEDTUBE PRN PRN PRN Reason: Hypoglycemia Sodium Bicarbonate (Sodium Bicarbonate) 325 mg FEEDTUBE PRN PRN PRN Reason: For Clogged Feeding Tube Vancomycin HCl (Vancomycin Pharmacy To Dose) 1 each IV PKCONSULT COUNTS INCLUDE 234 BEDS AT THE [facility] PRN Reason: Protocol Physical Examination - Vital Signs Vital Signs: Vital Signs Pulse Resp BP Pulse Ox 85 16 141/72 96 07/02/17 15:00 07/02/17 15:00 07/02/17 15:00 07/02/17 15:00 Results - Laboratory Findings CBC and BMP: 07/04/17 08:00 07/04/17 08:00 Abnormal Lab Findings: Abnormal Labs 07/02/17 07/02/17 07/02/17 20:29 21:31 23:38 WBC RBC Hgb Hct RDW Plt Count POC ABG pH POC ABG pCO2 POC ABG pO2 Sodium 129 L 132 L Chloride 87.2 L 93.7 L Carbon Dioxide 18 L 15 L BUN 51 H 47 H Creatinine 4.3 H 4.1 H Glucose 950 H* 825 H* POC Glucose Lactic Acid 5.70 H* Calcium 7.1 L 6.8 L Alkaline Phosphatase C-Reactive Protein Total Protein Albumin Salicylates 07/02/17 07/02/17 07/02/17 23:38 23:44 Unknown WBC RBC Hgb Hct RDW Plt Count POC ABG pH POC ABG pCO2 POC ABG pO2 Sodium 132 L 125 L D Chloride 94.6 L 85.6 L Carbon Dioxide 17 L 19 L D BUN 51 H 50 H Creatinine 4.1 H 4.4 H D Glucose 772 H* 1113 H* POC Glucose > 500 H Lactic Acid Calcium 6.7 L 7.2 L Alkaline Phosphatase 139 H C-Reactive Protein Total Protein 6.1 L Albumin 3.3 L Salicylates 07/02/17 07/02/17 07/03/17 Unknown Unknown 01:00 WBC RBC Hgb Hct RDW Plt Count POC ABG pH POC ABG pCO2 POC ABG pO2 Sodium 134 L Chloride 96.4 L Carbon Dioxide 19 L BUN 50 H Creatinine 4.0 H Glucose 677 H* POC Glucose Lactic Acid 6.30 H* Calcium 6.6 L Alkaline Phosphatase C-Reactive Protein Total Protein Albumin Salicylates < 0.3 L 07/03/17 07/03/17 07/03/17 01:04 02:15 02:15 WBC RBC Hgb Hct RDW Plt Count POC ABG pH POC ABG pCO2 POC ABG pO2 Sodium 134 L Chloride 97.6 L Carbon Dioxide 19 L BUN 50 H Creatinine 4.2 H Glucose 592 H* POC Glucose > 500 H Lactic Acid 4.30 H* Calcium 6.6 L Alkaline Phosphatase C-Reactive Protein Total Protein Albumin Salicylates 07/03/17 07/03/17 07/03/17 02:21 03:25 04:10 WBC RBC Hgb Hct RDW Plt Count POC ABG pH POC ABG pCO2 POC ABG pO2 Sodium Chloride Carbon Dioxide 19 L BUN 50 H Creatinine 4.0 H Glucose 416 H POC Glucose 482 H > 500 H Lactic Acid Calcium 6.8 L Alkaline Phosphatase C-Reactive Protein Total Protein Albumin Salicylates 07/03/17 07/03/17 07/03/17 04:30 04:36 05:33 WBC RBC Hgb Hct RDW Plt Count POC ABG pH 7.311 L POC ABG pCO2 33.5 L POC ABG pO2 73 L Sodium Chloride Carbon Dioxide BUN Creatinine Glucose POC Glucose 389 H 326 H Lactic Acid Calcium Alkaline Phosphatase C-Reactive Protein Total Protein Albumin Salicylates 07/03/17 07/03/17 07/03/17 06:06 07:38 09:58 WBC RBC Hgb Hct RDW Plt Count POC ABG pH POC ABG pCO2 POC ABG pO2 Sodium Chloride Carbon Dioxide BUN Creatinine Glucose POC Glucose 247 H 118 H 52 L Lactic Acid Calcium Alkaline Phosphatase C-Reactive Protein Total Protein Albumin Salicylates 07/03/17 07/03/17 07/03/17 11:00 13:16 15:02 WBC RBC Hgb Hct RDW Plt Count POC ABG pH POC ABG pCO2 POC ABG pO2 Sodium Chloride Carbon Dioxide BUN Creatinine Glucose POC Glucose 64 L 112 H 158 H Lactic Acid Calcium Alkaline Phosphatase C-Reactive Protein Total Protein Albumin Salicylates 07/03/17 07/03/17 07/03/17 18:17 Unknown Unknown WBC RBC Hgb Hct RDW Plt Count POC ABG pH POC ABG pCO2 POC ABG pO2 Sodium Chloride Carbon Dioxide BUN Creatinine Glucose POC Glucose 131 H Lactic Acid 2.40 H* Calcium Alkaline Phosphatase C-Reactive Protein 1.90 H Total Protein Albumin Salicylates 07/03/17 07/04/17 07/04/17 Unknown 00:13 02:04 WBC RBC Hgb Hct RDW Plt Count POC ABG pH POC ABG pCO2 POC ABG pO2 Sodium Chloride Carbon Dioxide BUN 52 H Creatinine 4.3 H Glucose POC Glucose 69 L 111 H Lactic Acid Calcium 7.2 L Alkaline Phosphatase C-Reactive Protein Total Protein Albumin Salicylates 07/04/17 07/04/17 07/04/17 04:38 08:00 08:00 WBC 28.3 H RBC 3.55 L Hgb 10.3 L Hct 31.2 L RDW 15.3 H Plt Count 101 L POC ABG pH POC ABG pCO2 27.6 L POC ABG pO2 Sodium Chloride Carbon Dioxide 20 L BUN 62 H Creatinine 4.7 H Glucose POC Glucose Lactic Acid Calcium 7.0 L Alkaline Phosphatase C-Reactive Protein Total Protein Albumin Salicylates
--- NOTE | 2017-07-04 12:53 | Progress Note ---
Assessment and Plan Assessment and plan: Acute respiratory failure Continue mechanical ventilation per pulmonary. DKA (diabetic ketoacidoses) Resolved. Discontinue Insulin drip protocol, serial bmp, monitor anion gap, IVF resuscitation. We will start long-acting insulin regimen. I discussed with pharmacy/nursing. Cardiac arrest Cardiology consultation. Check echocardiogram. Sepsis Present on admission. Leukocytosis worse. Blood cultures thus far negative. Consider ID consultation. Continue empiric antibiotics of vancomycin and Zosyn. Lactic acid acidosis Secondary to DKA, sepsis and Cardiac arrest, IVF resuscitation, treated DKA, repeat lactic acid level Metabolic encephalopathy Secondary to DKA complicated by cardiac arrest, supportive care, neuro checks. Anoxic brain damage S/P Cardiac arrest. Neurology following. Check EEG. Seizure disorder Neurology consultation pending. Follow-up EEG. Vomiting Etiology, may be secondary to obstruction. Check KUB. Continue NGT to suction DVT prophylaxis The high probability of a clinically significant, sudden or life threatening deterioration of the [respiratory, cardiac and neurological] system(s) required my full and direct attention, intervention and personal management. The aggregate critical care time was [31] minutes. This time is in addition to time spent performing reported procedures but includes the following: [x] Data Review and interpretation [x] Patient assessment and monitoring of vital signs [x] Documentation [x] Medication orders and management History Interval history: Patient is intubated on mechanical ventilation. Hospitalist Physical - Constitutional Vitals: Temp Pulse Resp BP Pulse Ox 97.4 F L 82 18 119/64 100 07/04/17 08:00 07/04/17 10:49 07/04/17 08:00 07/04/17 10:49 07/04/17 08:00 General appearance: Present: no acute distress, other (orally intubated) - EENT Eyes: Present: PERRL, EOM intact ENT: hearing intact, clear oral mucosa, dentition normal - Neck Neck: Present: supple, normal ROM - Respiratory Respiratory effort: normal Respiratory: bilateral: CTA - Cardiovascular Rhythm: regular Heart Sounds: Present: S1 & S2. Absent: gallop, rub - Extremities Extremities: no ischemia, No edema, Full ROM - Abdominal General gastrointestinal: soft, non-tender, non-distended, normal bowel sounds - Integumentary Integumentary: Present: clear, warm, dry - Neurologic Neurologic: CNII-XII intact, moves all extremities Results - Labs CBC & Chem 7: 07/04/17 08:00 07/04/17 08:00 Labs: Laboratory Last Values WBC 28.3 K/mm3 (4.5-11.0) H 07/04/17 08:00 RBC 3.55 M/mm3 (3.65-5.03) L 07/04/17 08:00 Hgb 10.3 gm/dl (11.8-15.2) L 07/04/17 08:00 Hct 31.2 % (35.5-45.6) L 07/04/17 08:00 MCV 88 fl (84-94) 07/04/17 08:00 MCH 29 pg (28-32) 07/04/17 08:00 MCHC 33 % (32-34) 07/04/17 08:00 RDW 15.3 % (13.2-15.2) H 07/04/17 08:00 Plt Count 101 K/mm3 (140-440) L 07/04/17 08:00 Add Manual Diff Complete 07/02/17 15:03 Total Counted 100 07/02/17 15:03 Seg Neutrophils % Cupola Repairer 07/02/17 15:03 Seg Neuts % (Manual) 95.0 % (40.0-70.0) H 07/02/17 15:03 Band Neutrophils % 0 % 07/02/17 15:03 Lymphocytes % (Manual) 3.0 % (13.4-35.0) L 07/02/17 15:03 Reactive Lymphs % (Man) 0 % 07/02/17 15:03 Monocytes % (Manual) 2.0 % (0.0-7.3) 07/02/17 15:03 Eosinophils % (Manual) 0 % (0.0-4.3) 07/02/17 15:03 Basophils % (Manual) 0 % (0.0-1.8) 07/02/17 15:03 Metamyelocytes % 0 % 07/02/17 15:03 Myelocytes % 0 % 07/02/17 15:03 Promyelocytes % 0 % 07/02/17 15:03 Blast Cells % 0 % 07/02/17 15:03 Nucleated RBC % Not Reportable 07/02/17 15:03 Seg Neutrophils # Man 12.8 K/mm3 (1.8-7.7) H 07/02/17 15:03 Band Neutrophils # 0.0 K/mm3 07/02/17 15:03 Lymphocytes # (Manual) 0.4 K/mm3 (1.2-5.4) L 07/02/17 15:03 Abs React Lymphs (Man) 0.0 K/mm3 07/02/17 15:03 Monocytes # (Manual) 0.3 K/mm3 (0.0-0.8) 07/02/17 15:03 Eosinophils # (Manual) 0.0 K/mm3 (0.0-0.4) 07/02/17 15:03 Basophils # (Manual) 0.0 K/mm3 (0.0-0.1) 07/02/17 15:03 Metamyelocytes # 0.0 K/mm3 07/02/17 15:03 Myelocytes # 0.0 K/mm3 07/02/17 15:03 Promyelocytes # 0.0 K/mm3 07/02/17 15:03 Blast Cells # 0.0 K/mm3 07/02/17 15:03 WBC Morphology Not Reportable 07/02/17 15:03 Hypersegmented Neuts Not Reportable 07/02/17 15:03 Hyposegmented Neuts Not Reportable 07/02/17 15:03 Hypogranular Neuts Not Reportable 07/02/17 15:03 Smudge Cells Not Reportable 07/02/17 15:03 Toxic Granulation Not Reportable 07/02/17 15:03 Toxic Vacuolation Not Reportable 07/02/17 15:03 Dohle Bodies Not Reportable 07/02/17 15:03 Pelger-Huet Anomaly Not Reportable 07/02/17 15:03 [place] Rods Not Reportable 07/02/17 15:03 Platelet Estimate Consistent w auto 07/02/17 15:03 Clumped Platelets Not Reportable 07/02/17 15:03 Plt Clumps, EDTA Not Reportable 07/02/17 15:03 Large Platelets Not Reportable 07/02/17 15:03 Giant Platelets Not Reportable 07/02/17 15:03 Platelet Satelliting Not Reportable 07/02/17 15:03 Plt Morphology Comment Not Reportable 07/02/17 15:03 RBC Morphology Not Reportable 07/02/17 15:03 Dimorphic RBCs Not Reportable 07/02/17 15:03 Polychromasia Not Reportable 07/02/17 15:03 Hypochromasia Not Reportable 07/02/17 15:03 Poikilocytosis Few 07/02/17 15:03 Anisocytosis Not Reportable 07/02/17 15:03 Microcytosis Not Reportable 07/02/17 15:03 Macrocytosis Not Reportable 07/02/17 15:03 Spherocytes Not Reportable 07/02/17 15:03 Pappenheimer Bodies Not Reportable 07/02/17 15:03 Sickle Cells Not Reportable 07/02/17 15:03 Target Cells Not Reportable 07/02/17 15:03 Tear Drop Cells Not Reportable 07/02/17 15:03 Ovalocytes Not Reportable 07/02/17 15:03 Helmet Cells Not Reportable 07/02/17 15:03 [place] Bodies Not Reportable 07/02/17 15:03 [place] Rings Not Reportable 07/02/17 15:03 Wy[place] Cells Not Reportable 07/02/17 15:03 Bite Cells Not Reportable 07/02/17 15:03 Crenated Cell Not Reportable 07/02/17 15:03 Elliptocytes 1+ 07/02/17 15:03 Acanthocytes (Spur) Not Reportable 07/02/17 15:03 Rouleaux Not Reportable 07/02/17 15:03 Hemoglobin C Crystals Not Reportable 07/02/17 15:03 Schistocytes Not Reportable 07/02/17 15:03 Malaria parasites Not Reportable 07/02/17 15:03 Morales Bodies Not Reportable 07/02/17 15:03 Hem Pathologist Commnt No 07/02/17 15:03 POC ABG pH 7.410 (7.35-7.45) 07/04/17 04:38 POC ABG pCO2 27.6 (35-45) L 07/04/17 04:38 POC ABG pO2 100 (80-105) 07/04/17 04:38 POC ABG HCO3 17.5 07/04/17 04:38 POC ABG Total CO2 18 07/04/17 04:38 POC ABG O2 Sat 98 07/04/17 04:38 POC ABG Base Excess -7 07/04/17 04:38 FiO2 40 % 07/04/17 04:38 Sodium 140 mmol/L (137-145) 07/04/17 08:00 Potassium 4.2 mmol/L (3.6-5.0) 07/04/17 08:00 Chloride 103.0 mmol/L (98-107) 07/04/17 08:00 Carbon Dioxide 20 mmol/L (22-30) L 07/04/17 08:00 Anion Gap 21 mmol/L 07/04/17 08:00 BUN 62 mg/dL (9-20) H 07/04/17 08:00 Creatinine 4.7 mg/dL (0.8-1.5) H 07/04/17 08:00 Estimated GFR 15 ml/min 07/04/17 08:00 BUN/Creatinine Ratio 13 % 07/04/17 08:00 Glucose 76 mg/dL (75-100) 07/04/17 08:00 POC Glucose 71 (70-105) 07/04/17 05:53 Osmolality 357 Mosm/kg 07/02/17 15:35 Lactic Acid 2.40 mmol/L (0.7-2.0) H* 07/03/17 Unknown Calcium 7.0 mg/dL (8.4-10.2) L 07/04/17 08:00 Phosphorus 2.90 mg/dL (2.5-4.5) 07/02/17 20:29 Magnesium 2.10 mg/dL (1.7-2.3) 07/02/17 Unknown Total Bilirubin 0.40 mg/dL (0.1-1.2) 07/02/17 Unknown AST 31 units/L (5-40) 07/02/17 Unknown ALT 23 units/L (7-56) 07/02/17 Unknown Alkaline Phosphatase 139 units/L (35-129) H 07/02/17 Unknown C-Reactive Protein 1.90 mg/dL (0.00-1.30) H 07/03/17 Unknown Total Protein 6.1 g/dL (6.3-8.2) L 07/02/17 Unknown Albumin 3.3 g/dL (3.9-5) L 07/02/17 Unknown Albumin/Globulin Ratio 1.2 % 07/02/17 Unknown TSH 3.200 mlU/mL (0.270-4.200) 07/02/17 Unknown Urine Color Yellow (Yellow) 07/02/17 17:25 Urine Turbidity Clear (Clear) 07/02/17 17:25 Urine pH 5.0 (5.0-7.0) 07/02/17 17:25 Ur Specific [place] 1.018 (1.003-1.030) 07/02/17 17:25 Urine Protein 100 mg/dl mg/dL (Negative) 07/02/17 17:25 Urine Glucose (UA) >=500 mg/dL (Negative) 07/02/17 17:25 Urine Ketones Neg mg/dL (Negative) 07/02/17 17:25 Urine Blood Sm (Negative) 07/02/17 17:25 Urine Nitrite Neg (Negative) 07/02/17 17:25 Urine Bilirubin Neg (Negative) 07/02/17 17:25 Urine Urobilinogen < 2.0 mg/dL (<2.0) 07/02/17 17:25 Ur Leukocyte Esterase Neg (Negative) 07/02/17 17:25 Urine WBC (Auto) 1.0 /HPF (0.0-6.0) 07/02/17 17:25 Urine RBC (Auto) 2.0 /HPF (0.0-6.0) 07/02/17 17:25 U Epithel Cells (Auto) 1.0 /HPF (0-13.0) 07/02/17 17:25 Salicylates < 0.3 mg/dL (2.8-20.0) L 07/02/17 Unknown Urine Opiates Screen Presumptive negative 07/02/17 17:25 Urine Methadone Screen Presumptive negative 07/02/17 17:25 Acetaminophen < 15.0 ug/mL (10.0-30.0) 07/02/17 Unknown Ur Barbiturates Screen Presumptive negative 07/02/17 17:25 Ur Phencyclidine Scrn Presumptive negative 07/02/17 17:25 Ur Amphetamines Screen Presumptive negative 07/02/17 17:25 U Benzodiazepines Scrn Presumptive negative 07/02/17 17:25 Urine Cocaine Screen Presumptive negative 07/02/17 17:25 U Marijuana (THC) Screen Presumptive negative 07/02/17 17:25 Drugs of Abuse Note Disclamer 07/02/17 17:25 Plasma/Serum Alcohol < 0.01 gm% (0-0.07) 07/02/17 Unknown
--- NOTE | 2017-07-04 12:58 | Consultation ---
History of Present Illness Consult date: 07/04/17 Requesting physician: JATIN MELVIN Consult reason: cardiac arrest History of present illness: The pt is a 76 YO NHR male with a past medical history significant for HTN, DM, ESRD on HD. He is previously unknown to our practice. Pt is intubated and not responsive to commands on evaluation with no family at bedside and thus HPI is obtained per the records. Pt presented on 07/02/2017 to [facility] from long-term after being found to have new onset seizure at long-term that was witnessed by SNF staff. Upon EMS arrival, patient was reportedly found to be stuporous. Following arrival in ED, pt found to have HHNK with BGs 900s-1000s, lactic acidosis, BUN 51 Creat 4.3, Na 129. Pt also found to be in respiratory distress and subsequently suffered PEA arrest in ED. ACLS was initiated and ROSC was achieved. Following cardiac arrest, pt was hypotensive and required vasopressor support. On evaluation, vasopressors have been weaned off. Pt continues to require mechanical ventilation. Pt off sedation and per primary RN, pt with gag reflex and appropriate response to noxious stimuli, no purposeful response to verbal commands noted. Of note, echo done 06/27/2017 showed EF 50-55%, mild LVH, impaired relaxation, RA mildly dilated, mild MR, mild pulm HTN with RVSP 45mmHg, moderate pleural fluid. Past History Past Medical History: diabetes, ESRD, hypertension Past Surgical History: Other (Permacath placement) Social history: single. denies: smoking, alcohol abuse Family history: no significant family history Medications and Allergies Allergies Allergy/AdvReac Type Severity Reaction Status Date / Time No Known Allergies Allergy Unverified 11/17/14 12:29 Home Medications Medication Instructions Recorded Confirmed Last Taken Type Aspirin EC [Aspirin Enteric Coated 81 mg PO QDAY #90 tablet. 11/19/14 Unknown Rx TAB] amLODIPine [Norvasc] 5 mg PO DAILY #90 tab 11/19/14 07/02/17 Unknown Rx Ascorbic Acid [Vitamin C] 500 mg PO DAILY 06/26/17 07/02/17 Unknown History Bisacodyl [Laxative] 5 mg PO DAILY 06/26/17 07/02/17 Unknown History Calcitriol [Rocaltrol] 0.25 mcg PO DAILY 06/26/17 07/02/17 Unknown History Carvedilol [Coreg] 12.5 mg PO BID 06/26/17 07/02/17 Unknown History Ferrous Sulfate [Feosol 325 MG tab] 325 mg PO BID 06/26/17 07/02/17 Unknown History Folic Acid [Folvite] 1 mg PO QDAY 06/26/17 07/02/17 Unknown History Insulin Lispro [Humalog 100 0 units SQ AC 06/26/17 07/02/17 Unknown History UNITS/ML Kwikpen] Multivitamin Tab W-MINERAL 1 each PO QD 06/26/17 07/02/17 Unknown History [Multiple Vitamin/Mineral (Theragran M)] Cephalexin [Keflex] 500 mg PO Q8HR 3 Days 06/28/17 07/02/17 Unknown Rx Insulin NPH/Regular [NovoLIN 70/30] 10 unit SUB-Q BIDDIAB 30 Days 06/28/1707/02 Unknown Rx Active Meds: Active Medications Al Hydrox/Mg Hydrox/Simethicone (Alum-Mag Hydrox-Simeth 383-411-52cg/5ml) 30 ml PO Q4H PRN PRN Reason: Indigestion Albuterol/Ipratropium (Duoneb *Not For Prn Use*) 1 ampul IH Q8HRT [facility] Lipase/Protease/Amylase (Juan Porter 10,500 Unit) 1 each FEEDTUBE PRN PRN PRN Reason: For Clogged Feeding Tube Aspirin (Halfprin Ec) 81 mg PO QDAY [facility] Last Admin: 07/04/17 10:51 Dose: 81 mg Bisacodyl (Dulcolax) 10 mg ID QDAY PRN PRN Reason: constipation unrelieved by MOM Calcitriol (Rocaltrol) 0.25 mcg PO DAILY [facility] Last Admin: 07/04/17 10:58 Dose: 0.25 mcg Carvedilol (Coreg) 12.5 mg PO BID [facility] Last Admin: 07/04/17 10:49 Dose: 12.5 mg Famotidine (Pepcid) 20 mg IV QDAY [facility] Last Admin: 07/04/17 10:52 Dose: 20 mg Ferrous Sulfate (Ferrous Sulfate) 300 mg PO BID [facility] Last Admin: 07/04/17 11:33 Dose: 300 mg Folic Acid (Folvite) 1 mg PO QDAY [facility] Last Admin: 07/04/17 10:51 Dose: 1 mg Heparin Sodium (Porcine) (Heparin) 5,000 unit SUB-Q Q12HR [facility] Last Admin: 07/04/17 10:48 Dose: 5,000 unit Hydrophilic Ointment (Vaseline Lip Therapy) 1 applic TP Q2HR PRN PRN Reason: Dry Lips Last Admin: 07/03/17 15:11 Dose: 1 applic Piperacillin Sod/Tazobactam Sod (Zosyn/Ns 2.25 Gm/50ml) 2.25 gm in 50 mls @ 100 mls/hr IV Q8H [facility] Last Admin: 07/04/17 06:25 Dose: 100 mls/hr Dextrose/Sodium Chloride (D5/0.45ns) 1,000 mls @ 42 mls/hr IV DIRECT [facility] Last Admin: 07/04/17 11:36 Dose: 42 mls/hr Insulin Aspart (Novolog) 0 units SUB-Q Q6HR [facility] PRN Reason: Protocol Last Admin: 07/04/17 11:24 Dose: Not Given Insulin Detemir (Levemir) 10 units SUB-Q QAMDIAB [facility] Last Admin: 07/04/17 10:59 Dose: 10 units Magnesium Hydroxide (Milk Of Magnesia) 30 ml PO Q4H PRN PRN Reason: Constipation Multivitamins/Minerals (Theragran-M Tab) 1 each PO QDAY [facility] Last Admin: 07/04/17 10:49 Dose: 1 each Simple Syrup (Simple Syrup) 15 ml FEEDTUBE PRN PRN PRN Reason: Hypoglycemia Simple Syrup (Simple Syrup) 30 ml FEEDTUBE PRN PRN PRN Reason: Hypoglycemia Sodium Bicarbonate (Sodium Bicarbonate) 325 mg FEEDTUBE PRN PRN PRN Reason: For Clogged Feeding Tube Vancomycin HCl (Vancomycin Pharmacy To Dose) 1 each IV PKCONSULT [facility] PRN Reason: Protocol Review of Systems ROS unobtainable: due to endotracheal tube, due to mental status Physical Examination Vital Signs Pulse Resp BP Pulse Ox 85 16 141/72 96 07/02/17 15:00 07/02/17 15:00 07/02/17 15:00 07/02/17 15:00 General appearance: other (intubated, unresponsive) HEENT: Positive: PERRL Neck: Positive: neck supple Cardiac: Positive: Reg Rate and Rhythm, S1/S2 Lungs: Positive: Wheezes, Rhonchi Neuro: Positive: Other (intubated, unresponsive) Abdomen: Positive: Active Bowel Sounds Skin: Positive: Clear. Negative: Rash, Wound Musculoskeletal: No Fluid Collection, No Pain, Normal Range of Motion Extremities: Absent: edema Results 07/04/17 08:00 07/04/17 08:00 CBC 07/04/17 Range/Units 08:00 WBC 28.3 H (4.5-11.0) K/mm3 RBC 3.55 L (3.65-5.03) M/mm3 Hgb 10.3 L (11.8-15.2) gm/dl Hct 31.2 L (35.5-45.6) % Plt Count 101 L (140-440) K/mm3 Comprehensive Metabolic Panel 07/04/17 Range/Units 08:00 Sodium 140 (137-145) mmol/L Potassium 4.2 (3.6-5.0) mmol/L Chloride 103.0 (98-107) mmol/L Carbon Dioxide 20 L (22-30) mmol/L BUN 62 H (9-20) mg/dL Creatinine 4.7 H (0.8-1.5) mg/dL Glucose 76 (75-100) mg/dL Calcium 7.0 L (8.4-10.2) mg/dL - Imaging and Cardiology Echo: report reviewed (06/27/2017 showed EF 50-55%, mild LVH, impaired relaxation , RA mildly dilated, mild MR, mild pulm HTN with RVSP 45mmHg, moderate pleural fluid) EKG: report reviewed, image reviewed EKG interpretations - Telemetry EKG Rhythm: Sinus Rhythm - EKG Sinus rhythms and dysrhythmias: sinus rhythm AV and intraventricular conduction: right bundle branch block Assessment and Plan Assessment: S/p cardiopulmonary arrest - PEA in ED; intubated; currently in SR on tele with no arrhythmias noted on tele since ICU admission AMS - ? anoxic brain injury; head CT with NAF DKA Seizure d/o - EEG pending HTN DM / Hyperosmolar non ketotic state Lactic acidosis / leukocytosis / ? sepsis Hyponatremia - improved Anemia Thrombocytopenia Plan: Repeat 12-lead EKG. Await repeat limited echo for eval of LV function. Trend Elva. Cont supportive management. The patient has been seen in conjunction with Dr. Hand who agrees with the assessment and plan of care.
[2017-07-04] MEDS ORDERED: NACL 0.9% 100 ML IV PRN (13:28)
--- NOTE | 2017-07-04 13:35 | Progress Note ---
Assessment and Plan Impression: * End stage renal disease on HD * Cardiac arrest * Acute hypoxic respiratory failure * Seizure disorder, new onset * Sepsis Plan: * Hemodialysis today. Continue MWF schedule * UF as tolerated. Ca bath adjusted * Vent management per CCM * Empiric abx * Neuro work up in progress - note plans for EEG * Adjust medications for renal function l Subjective Date of service: 07/04/17 Principal diagnosis: Acute Hypoxemic Resp Failure; S/P Cardiac Arrest; Hyperosmolar Non-ketotic Interval history: Patient seen on dialysis. 24h events reviewed. Objective - Vital Signs Vital signs: Vital Signs - 12hr 07/04/17 07/04/17 07/04/17 01:46 02:00 02:16 Temperature Pulse Rate 79 80 79 Pulse Rate [ From Monitor] Respiratory 19 19 17 Rate Blood Pressure 138/74 138/74 135/75 O2 Sat by Pulse 100 100 99 Oximetry 07/04/17 07/04/17 07/04/17 02:30 02:46 03:00 Temperature Pulse Rate 79 78 79 Pulse Rate [ From Monitor] Respiratory 18 17 18 Rate Blood Pressure 129/76 129/76 132/75 O2 Sat by Pulse 100 100 100 Oximetry 07/04/17 07/04/17 07/04/17 03:16 03:30 03:46 Temperature Pulse Rate 78 78 78 Pulse Rate [ From Monitor] Respiratory 18 18 17 Rate Blood Pressure 132/75 132/75 132/75 O2 Sat by Pulse 100 100 100 Oximetry 07/04/17 07/04/17 07/04/17 04:00 04:16 04:30 Temperature 97.4 F L Pulse Rate 78 87 86 Pulse Rate [ From Monitor] Respiratory 18 17 16 Rate Blood Pressure 126/82 126/82 126/82 O2 Sat by Pulse 100 100 98 Oximetry 07/04/17 07/04/17 07/04/17 04:46 05:00 05:16 Temperature Pulse Rate 89 87 84 Pulse Rate [ From Monitor] Respiratory 19 18 19 Rate Blood Pressure 133/84 133/84 126/77 O2 Sat by Pulse 100 99 99 Oximetry 07/04/17 07/04/17 07/04/17 05:30 05:46 06:00 Temperature Pulse Rate 81 81 86 Pulse Rate [ From Monitor] Respiratory 18 18 18 Rate Blood Pressure 123/68 123/68 123/70 O2 Sat by Pulse 99 99 100 Oximetry 07/04/17 07/04/17 07/04/17 06:16 06:30 06:46 Temperature Pulse Rate 85 85 85 Pulse Rate [ From Monitor] Respiratory 18 18 16 Rate Blood Pressure 123/70 122/69 122/69 O2 Sat by Pulse 100 100 100 Oximetry 07/04/17 07/04/17 07/04/17 07:00 07:16 07:30 Temperature Pulse Rate 85 81 81 Pulse Rate [ From Monitor] Respiratory 13 13 14 Rate Blood Pressure 117/71 117/71 115/69 O2 Sat by Pulse 100 100 100 Oximetry 07/04/17 07/04/17 07/04/17 07:46 08:00 10:49 Temperature 97.4 F L Pulse Rate 80 86 82 Pulse Rate [ 82 From Monitor] Respiratory 12 13 Rate Blood Pressure 115/69 118/67 119/64 O2 Sat by Pulse 100 100 Oximetry 07/04/17 12:00 Temperature 98 F Pulse Rate 88 Pulse Rate [ From Monitor] Respiratory Rate Blood Pressure 132/71 O2 Sat by Pulse 100 Oximetry - General Appearance General appearance: intubated EENT: other (ETT in place) Neck: no JVD Respiratory: Present: Other (coarse breath sounds) Gastrointestinal: normal, no tenderness, no distended Integumentary: no rash Neurologic: other (opens eyes to tactile stimuli) Musculoskeletal: other (trace edema) - Lab 07/04/17 08:00 07/04/17 08:00 Most recent lab results Calcium 7.0 mg/dL (8.4-10.2) L 07/04/17 08:00 Phosphorus 2.90 mg/dL (2.5-4.5) 07/02/17 20:29 Magnesium 2.10 mg/dL (1.7-2.3) 07/02/17 Unknown
--- NOTE | 2017-07-04 13:45 | Consultation ---
REASON FOR CONSULTATION: Renal failure. HISTORY OF PRESENT ILLNESS: This 76-year-old [place] male with end-stage renal disease, diabetes, hypertension, was brought to the Emergency Room from the detention where he was witnessed to have a seizure. Chart was reviewed, unable to obtain any information from the patient. The patient was found to be in respiratory distress and then had a cardiac arrest. ACLS protocol was performed and the patient was intubated, placed on ventilator support, and also placed on pressure support for hypotension. He was also noted to be in diabetic ketoacidosis with blood sugars above 1000. The patient was recently admitted to [facility] on 06/26/2017 and discharged on 06/29/2017, and then he missed hemodialysis. He used to go to [facility] and from there after the discharge from the hospital on 06/29/2017, he was placed at [facility]. PAST MEDICAL HISTORY: Diabetes, hypertension, end-stage renal disease. PERSONAL HISTORY: No history of smoking or alcohol abuse. FAMILY HISTORY: No family history of kidney failure. ALLERGIES: None. REVIEW OF SYSTEMS: Unable to obtain. CURRENT MEDICATIONS: Calcitriol 0.25 mcg once a day, folic acid 1 mg once a day, insulin. The patient is on IV Levophed, IV Zosyn 2.25 g q.8 hours, and IV vancomycin per consult. PHYSICAL EXAMINATION: GENERAL: The patient is orally intubated on ventilators, not responding to verbal commands. VITAL SIGNS: Blood pressure 107/66, pulse 87, afebrile. HEENT: Normocephalic. His lips are dry. NECK: No JVD. No thyroid enlargement. LUNGS: Coarse breath sounds. HEART: S1, S2 regular. A 2/6 systolic murmur along the left sternal border. ABDOMEN: Soft, bowel sounds present, no masses palpable. EXTREMITIES: 1+ edema. The patient has right internal jugular tunneled catheter in place. LABORATORY DATA: WBC 13.5, hemoglobin 9.9, hematocrit 33.1, platelets 130,000; pH 7.31, pCO2 33.5, pO2 73. Sodium 132, potassium 4.7, chloride 94, CO2 17, BUN 51, creatinine 4.1, glucose 772. Lactic acid 5.7, albumin 3.3. TSH 3.2. Urinalysis: Protein 100. ASSESSMENT AND PLAN: 1. Status post cardiac arrest. 2. Status post seizure. 3. Diabetes ketoacidosis. 4. Acute respiratory failure. 5. Lactic acidosis. 6. Encephalopathy. 7. End-stage renal disease. 8. Anemia in chronic kidney disease. 9. Hypotension. Maintain on pressure support. No acute indication for hemodialysis for today. Hemodialysis tomorrow if hemodynamically stable and neuro recovery is expected. Adjust medications per renal function. Prognosis is guarded. Thank you for the consultation. JOB# [id number] KATIEK/NTS
--- NOTE | 2017-07-04 13:52 | XRay Report ---
ABDOMEN RADIOGRAPHS INDICATION: Vomiting. COMPARISON: Yesterday. FINDINGS: Frontal abdominal radiographs, 1:08 PM, 07/04/2017 again demonstrate Dobbhoff tube tip along the distal stomach and a right IJ catheter tip at the cavoatrial junction. A right groin catheter tip projects over the sacrum on the right. Nonobstructive image bowel gas pattern, though right hemiabdomen gasless. Stable bones with advanced lower lumbar degenerative changes. Bibasilar hazy opacities/effusions. CONCLUSION: No acute radiographic abnormality with various findings, as above. Thank you for the opportunity to participate in this patient's care.
[2017-07-04 14:39] LABS: Magnesium 1.8 mg/dL (1.7-2.3); Phosphorous 3.8 mg/dL (2.5-4.5)
[2017-07-04 14:41] LABS: ISTAT Base Excess -2; ISTAT HCO3 21.6; ISTAT PCO2 29.4 (35-45); ISTAT PH 7.474 (7.35-7.45); ISTAT PO2 97 (80-105); ISTAT SO2 98; ISTAT TCO2 22
[2017-07-04 14:41] LABS: Creatine Kinase MB 4.3 ng/mL (0.0-4.0)
[2017-07-04] MEDS: HEPARIN IV PRN (17:23)
[2017-07-04] MEDS: DUONEB *Not for PRN Use IH SCH (17:34)
[2017-07-04 21:12] LABS: Creatine Kinase MB 3.4 ng/mL (0.0-4.0)
[2017-07-05] MEDS: DUONEB *Not for PRN Use IH SCH ×4 (01:10→19:48)
[2017-07-05] MEDS: ZOSYN/NS 2.25 GM/50ML 2.25 GM/50 ML BAG IV SCH (06:03)
[2017-07-05] MEDS: D5/0.45NS 1,000 ML IV SCH (06:04)
[2017-07-05] MEDS: NOVOLOG SUB-Q SCH ×3 (06:05→18:14)
[2017-07-05 06:36] LABS: Hematocrit 28.6 % (35.5-45.6); Hemoglobin 9.7 gm/dl (11.8-15.2); Mean Corpuscular HGB Conc 34 % (32-34); Mean Corpuscular Hemoglobin 30 pg (28-32); Mean Corpuscular Volume 88 fl (84-94); Red Blood Count 3.24 M/mm3 (3.65-5.03); Red Cell Distribution Width 15.2 % (13.2-15.2)
[2017-07-05 06:38] LABS: Platelet Count 89 K/mm3 (140-440); White Blood Count 22.2 K/mm3 (4.5-11.0)
[2017-07-05 07:12] LABS: Calcium 7.7 mg/dL (8.4-10.2); Chloride 100.4 mmol/L (98-107); Potassium 3.5 mmol/L (3.6-5.0)
--- NOTE | 2017-07-05 07:45 | XRay Report ---
Single view chest: Compared to 07/04/17. History: Followup of respiratory failure. Findings: Normal cardiomediastinal silhouette. Stable support system. Bilateral venous congestion and airspace opacities. No significant interval change. Suspected minimal bilateral pleural effusion. Impression: No significant interval change.
[2017-07-05 07:53] LABS: Blastocytes % (Manual) 0 %
[2017-07-05 07:54] LABS: Basophils % (Manual) 0 % (0.0-1.8); Eosinophils % (Manual) 0 % (0.0-4.3)
[2017-07-05 08:19] LABS: ISTAT Base Excess 0; ISTAT HCO3 24.5; ISTAT PCO2 36.3 (35-45); ISTAT PH 7.437 (7.35-7.45); ISTAT PO2 117 (80-105); ISTAT SO2 99; ISTAT TCO2 26
[2017-07-05 08:29] LABS: Anisocytosis 1+; Poikilocytosis 1+
[2017-07-05 08:30] LABS: Diff Status Complete; Microcytosis Few; Platelet Estimate Appears Decreased
[2017-07-05] MEDS: FERROUS SULFATE PO SCH ×3 (09:05→22:00)
[2017-07-05] MEDS: THERAGRAN-M Tab PO SCH (09:05)
[2017-07-05] MEDS: LEVEMIR SUB-Q SCH (09:05)
[2017-07-05] MEDS: ROCALTROL PO SCH (09:05)
[2017-07-05] MEDS: COREG PO SCH ×3 (09:06→21:02)
[2017-07-05] MEDS: HALFPRIN EC PO SCH (09:06)
[2017-07-05] MEDS: PEPCID IV SCH (09:06)
[2017-07-05] MEDS: FOLVITE PO SCH (09:06)
[2017-07-05] MEDS: HEPARIN SUB-Q SCH ×3 (09:06→21:01)
--- NOTE | 2017-07-05 09:35 | Progress Note ---
Assessment and Plan Assessment: S/p cardiopulmonary arrest - PEA in ED; intubated; currently in SR on tele with no arrhythmias noted on tele since ICU admission NSTEMI type II - flat; repeat EKG with no acute ischemic changes. AMS - ? anoxic brain injury; head CT with NAF DKA Seizure d/o - EEG pending HTN DM / Hyperosmolar non ketotic state Lactic acidosis / leukocytosis / ? sepsis Hyponatremia - improved Anemia Thrombocytopenia Plan: Await repeat limited echo for eval of LV function. Increase ASA to 325mg daily. Cont supportive management. Plan for ischemic evaluation once medically stabilized. The patient has been seen in conjunction with Dr. Hand who agrees with the assessment and plan of care. Subjective Date of service: 07/05/17 Principal diagnosis: Acute Hypoxemic Resp Failure; S/P Cardiac Arrest; Hyperosmolar Non-ketotic Interval history: pt remains intubated, unresponsive. Objective Last Vital Signs Temp 98.4 F 07/05/17 08:00 Pulse 93 H 07/05/17 09:06 Resp 12 07/05/17 07:58 BP 140/67 07/05/17 09:06 Pulse Ox 100 07/05/17 07:38 - Physical Examination General: Other (intubated, unresponsive) HEENT: Positive: PERRL Neck: Positive: neck supple Cardiac: Positive: Reg Rate and Rhythm, S1/S2 Lungs: Positive: Rhonchi, Ventilated Respirations Neuro: Positive: Other (intubated, unresponsive) Abdomen: Positive: Active Bowel Sounds Skin: Positive: Clear. Negative: Rash, Wound Musculoskeletal: No Fluid Collection, No Pain, Normal Range of Motion Extremities: Absent: edema - Labs and Meds Cardiac Enzymes 07/04/17 07/04/17 Range/Units 14:10 20:40 CK-MB (CK-2) 4.3 H 3.4 (0.0-4.0) ng/mL Lipids 07/04/17 Range/Units 14:10 Triglycerides 83 (2-149) mg/dL Cholesterol 83 (50-199) mg/dL HDL Cholesterol 45 (40-59) mg/dL Cholesterol/HDL Ratio 1.84 % CBC 07/05/17 Range/Units Unknown WBC 22.2 H (4.5-11.0) K/mm3 RBC 3.24 L (3.65-5.03) M/mm3 Hgb 9.7 L (11.8-15.2) gm/dl Hct 28.6 L (35.5-45.6) % Plt Count 89 L (140-440) K/mm3 Comprehensive Metabolic Panel 07/05/17 Range/Units Unknown Sodium 138 (137-145) mmol/L Potassium 3.5 L (3.6-5.0) mmol/L Chloride 100.4 (98-107) mmol/L Carbon Dioxide 27 D (22-30) mmol/L BUN 37 H (9-20) mg/dL Creatinine 3.1 H (0.8-1.5) mg/dL Glucose 120 H (75-100) mg/dL Calcium 7.7 L (8.4-10.2) mg/dL - Imaging and Cardiology EKG: report reviewed, image reviewed Echo: report reviewed (06/27/2017 showed EF 50-55%, mild LVH, impaired relaxation , RA mildly dilated, mild MR, mild pulm HTN with RVSP 45mmHg, moderate pleural fluid) - Telemetry EKG Rhythm: Sinus Rhythm - EKG Sinus rhythms and dysrhythmias: sinus rhythm AV and intraventricular conduction: right bundle branch block - Allied health notes Allied health notes reviewed: nursing
[2017-07-05] MEDS ORDERED: VANCOMYCIN/NS 1 GM/250 ML 1 GM/250 ML BAG IV ONE (10:00)
--- NOTE | 2017-07-05 10:17 | Progress Note ---
Assessment and Plan Acute Hypoxemic Respiratory Failure on MVS Seizure Disorder s/p Cardiac Arrest ESRD on Dialysis Sepsis Syndrome Hyperosmolar non ketotic state Anemia Leucocytosis Acute Encephalopathy - lung protective strategies -VAP bundle addressed -initiate enteric feeding once nasogastric tube position is confirmed -Continue SBT and SAT trials - Continue aspiration precautions - wean FiO2 for sats > 94% - bronchodilators and pulmonary toilet - Continue empiric AB's, follow cultures and get ID consult - continue glycemic control with insulin infusion (target BG <180mg/dl) - GI & VTE prophylaxis -Patient is Full code in the event of cardiopulmonary arrest Prognosis----Guarded - Continue other care per attending / other consultants Subjective Date of service: 07/05/17 Principal diagnosis: Acute Hypoxemic Resp Failure; S/P Cardiac Arrest; Hyperosmolar Non-ketotic Interval history: Patient is seen today for: Acute Hypoxemic Resp Failure; S/P Cardiac Arrest; Hyperosmolar Non-ketotic Seen and examined at bedside; 24hour events reviewed; nursing and respiratory care staff consulted; no adverse overnight events reported to me; remains on MVS ; AMS is persistent and not tolerating weaning trials well; No emesis or overt aspiration reported; BP's running high now. Tolerating PSV trials. Frequent stools but not liquid. Persisting leukocytosis Discussed during interdisciplinary rounds Objective - Exam Narrative Exam: Patient is intubated and on mechanical ventilation. The patient appeared well nourished and normally developed. Vital signs as documented. Head exam is unremarkable. No scleral icterus . Neck is without jugular venous distension, thyromegaly, or carotid bruits. Lungs are clear to auscultation. Cardiac exam reveals regular rate and Rhythm. First and second heart sounds normal. No murmurs, rubs or gallops. Abdominal exam reveals normal bowel sounds, no masses, no organomegaly and no aortic enlargement. Extremities are nonedematous and both femoral and pedal pulses are normal. 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 He is off sedation. Vital Signs - 12hr 07/04/17 07/04/17 07/04/17 22:30 22:45 22:58 Temperature Pulse Rate 94 H 93 H 94 H Pulse Rate [ Anterior Bilateral Throughout] Pulse Rate [ From Monitor] Respiratory 10 L 13 Rate Respiratory Rate [Anterior Bilateral Throughout] Blood Pressure 141/69 146/69 146/69 O2 Sat by Pulse 100 100 Oximetry 07/04/17 07/04/17 07/04/17 23:00 23:15 23:30 Temperature Pulse Rate 93 H 93 H 94 H Pulse Rate [ Anterior Bilateral Throughout] Pulse Rate [ From Monitor] Respiratory 11 L 11 L 11 L Rate Respiratory Rate [Anterior Bilateral Throughout] Blood Pressure 145/71 146/72 144/69 O2 Sat by Pulse 100 100 100 Oximetry 07/04/17 07/04/17 07/05/17 23:37 23:45 00:00 Temperature 98.8 F Pulse Rate 93 H 91 H Pulse Rate [ Anterior Bilateral Throughout] Pulse Rate [ 96 H From Monitor] Respiratory 12 10 L Rate Respiratory Rate [Anterior Bilateral Throughout] Blood Pressure 138/65 131/62 O2 Sat by Pulse 99 99 Oximetry 07/05/17 07/05/17 07/05/17 00:15 00:30 00:45 Temperature Pulse Rate 90 89 90 Pulse Rate [ Anterior Bilateral Throughout] Pulse Rate [ From Monitor] Respiratory 11 L 11 L 12 Rate Respiratory Rate [Anterior Bilateral Throughout] Blood Pressure 128/65 129/64 129/63 O2 Sat by Pulse 100 100 100 Oximetry 07/05/17 07/05/17 07/05/17 01:00 01:11 01:12 Temperature Pulse Rate 87 90 Pulse Rate [ 90 Anterior Bilateral Throughout] Pulse Rate [ From Monitor] Respiratory 11 L Rate Respiratory 15 Rate [Anterior Bilateral Throughout] Blood Pressure 127/59 127/59 O2 Sat by Pulse 100 100 Oximetry 07/05/17 07/05/17 07/05/17 01:15 01:29 01:30 Temperature Pulse Rate 90 88 Pulse Rate [ 93 H Anterior Bilateral Throughout] Pulse Rate [ From Monitor] Respiratory 12 11 L Rate Respiratory 16 Rate [Anterior Bilateral Throughout] Blood Pressure 133/65 132/66 O2 Sat by Pulse 100 100 Oximetry 07/05/17 07/05/17 07/05/17 01:45 02:00 02:16 Temperature Pulse Rate 90 96 H 91 H Pulse Rate [ Anterior Bilateral Throughout] Pulse Rate [ From Monitor] Respiratory 11 L 14 16 Rate Respiratory Rate [Anterior Bilateral Throughout] Blood Pressure 131/64 143/68 136/69 O2 Sat by Pulse 100 99 100 Oximetry 07/05/17 07/05/17 07/05/17 02:30 02:45 03:00 Temperature Pulse Rate 90 89 91 H Pulse Rate [ Anterior Bilateral Throughout] Pulse Rate [ From Monitor] Respiratory 14 12 14 Rate Respiratory Rate [Anterior Bilateral Throughout] Blood Pressure 140/71 136/75 142/78 O2 Sat by Pulse 99 100 100 Oximetry 07/05/17 07/05/17 07/05/17 03:15 03:30 03:45 Temperature Pulse Rate 89 88 89 Pulse Rate [ Anterior Bilateral Throughout] Pulse Rate [ From Monitor] Respiratory 14 10 L 10 L Rate Respiratory Rate [Anterior Bilateral Throughout] Blood Pressure 139/71 139/71 124/70 O2 Sat by Pulse 100 100 Oximetry 07/05/17 07/05/17 07/05/17 04:00 04:15 04:30 Temperature 98.7 F Pulse Rate 90 90 90 Pulse Rate [ Anterior Bilateral Throughout] Pulse Rate [ From Monitor] Respiratory 10 L 11 L 9 L Rate Respiratory Rate [Anterior Bilateral Throughout] Blood Pressure 140/75 138/72 140/74 O2 Sat by Pulse 100 100 100 Oximetry 07/05/17 07/05/17 07/05/17 04:46 05:00 05:15 Temperature Pulse Rate 93 H 91 H 91 H Pulse Rate [ Anterior Bilateral Throughout] Pulse Rate [ From Monitor] Respiratory 14 10 L 11 L Rate Respiratory Rate [Anterior Bilateral Throughout] Blood Pressure 129/78 143/71 140/76 O2 Sat by Pulse 100 100 100 Oximetry 07/05/17 07/05/17 07/05/17 05:30 05:46 06:00 Temperature Pulse Rate 91 H 97 H 93 H Pulse Rate [ Anterior Bilateral Throughout] Pulse Rate [ From Monitor] Respiratory 13 12 12 Rate Respiratory Rate [Anterior Bilateral Throughout] Blood Pressure 145/74 153/82 151/77 O2 Sat by Pulse 100 100 100 Oximetry 07/05/17 07/05/17 07/05/17 06:02 06:15 07:38 Temperature Pulse Rate 90 93 H 92 H Pulse Rate [ Anterior Bilateral Throughout] Pulse Rate [ From Monitor] Respiratory 14 Rate Respiratory Rate [Anterior Bilateral Throughout] Blood Pressure 151/77 147/73 140/70 O2 Sat by Pulse 100 100 100 Oximetry 07/05/17 07/05/17 07/05/17 07:46 07:58 08:00 Temperature 98.4 F Pulse Rate Pulse Rate [ 94 H 94 H Anterior Bilateral Throughout] Pulse Rate [ From Monitor] Respiratory Rate Respiratory 18 12 Rate [Anterior Bilateral Throughout] Blood Pressure O2 Sat by Pulse Oximetry 07/05/17 09:06 Temperature Pulse Rate 93 H Pulse Rate [ Anterior Bilateral Throughout] Pulse Rate [ From Monitor] Respiratory Rate Respiratory Rate [Anterior Bilateral Throughout] Blood Pressure 140/67 O2 Sat by Pulse Oximetry Constitutional: no acute distress, lethargic Eyes: non-icteric ENT: oropharynx moist, other (ETT at 20cm TIKI) Neck: supple, no lymphadenopathy, JVD, other (no thyromegally) Effort: mildly labored Ascultation: Bilateral: diminished breath sounds (bases), rales Percussion: Right: dull (base) Cardiovascular: regular rate and rhythm, other (no rubs / murmurs) Gastrointestinal: normoactive bowel sounds, soft, non-tender, non-distended, other (no HSM) Integumentary: normal Extremities: no cyanosis, no edema, pulses normal, no ischemia or petechiae Neurologic: normal mental status, non-focal exam, pupils equal and round, other (no spontaneous limb movements) Psychiatric: other (unable to assess) CBC and BMP: 07/12/17 04:37 07/13/17 04:46 ABG, PT/INR, D-dimer: ABG POC ABG pH 7.437 (7.35-7.45) 07/05/17 07:50 POC ABG pCO2 36.3 (35-45) 07/05/17 07:50 POC ABG pO2 117 (80-105) H 07/05/17 07:50 POC ABG HCO3 24.5 07/05/17 07:50 POC ABG Total CO2 26 07/05/17 07:50 POC ABG O2 Sat 99 07/05/17 07:50 Abnormal lab findings: Abnormal Labs 07/02/17 07/02/17 07/02/17 15:03 15:12 17:49 WBC 13.5 H RBC 3.47 L Hgb 9.9 L Hct 33.1 L MCV 96 H MCHC 30 L RDW 15.4 H Plt Count 130 L Seg Neuts % (Manual) 95.0 H Lymphocytes % (Manual) 3.0 L Seg Neutrophils # Man 12.8 H Lymphocytes # (Manual) 0.4 L POC ABG pH POC ABG pCO2 POC ABG pO2 Sodium Potassium Chloride Carbon Dioxide BUN Creatinine Glucose POC Glucose > 500 H Lactic Acid 7.80 H* Calcium Alkaline Phosphatase CK-MB (CK-2) Troponin T C-Reactive Protein Total Protein Albumin LDL Cholesterol Direct Salicylates 07/02/17 07/02/17 07/02/17 20:29 21:31 23:38 WBC RBC Hgb Hct MCV MCHC RDW Plt Count Seg Neuts % (Manual) Lymphocytes % (Manual) Seg Neutrophils # Man Lymphocytes # (Manual) POC ABG pH POC ABG pCO2 POC ABG pO2 Sodium 129 L 132 L Potassium Chloride 87.2 L 93.7 L Carbon Dioxide 18 L 15 L BUN 51 H 47 H Creatinine 4.3 H 4.1 H Glucose 950 H* 825 H* POC Glucose Lactic Acid 5.70 H* Calcium 7.1 L 6.8 L Alkaline Phosphatase CK-MB (CK-2) Troponin T C-Reactive Protein Total Protein Albumin LDL Cholesterol Direct Salicylates 07/02/17 07/02/17 07/02/17 23:38 23:44 Unknown WBC RBC Hgb Hct MCV MCHC RDW Plt Count Seg Neuts % (Manual) Lymphocytes % (Manual) Seg Neutrophils # Man Lymphocytes # (Manual) POC ABG pH POC ABG pCO2 POC ABG pO2 Sodium 132 L 125 L D Potassium Chloride 94.6 L 85.6 L Carbon Dioxide 17 L 19 L D BUN 51 H 50 H Creatinine 4.1 H 4.4 H D Glucose 772 H* 1113 H* POC Glucose > 500 H Lactic Acid Calcium 6.7 L 7.2 L Alkaline Phosphatase 139 H CK-MB (CK-2) Troponin T C-Reactive Protein Total Protein 6.1 L Albumin 3.3 L LDL Cholesterol Direct Salicylates 07/02/17 07/02/17 07/03/17 Unknown Unknown 01:00 WBC RBC Hgb Hct MCV MCHC RDW Plt Count Seg Neuts % (Manual) Lymphocytes % (Manual) Seg Neutrophils # Man Lymphocytes # (Manual) POC ABG pH POC ABG pCO2 POC ABG pO2 Sodium 134 L Potassium Chloride 96.4 L Carbon Dioxide 19 L BUN 50 H Creatinine 4.0 H Glucose 677 H* POC Glucose Lactic Acid 6.30 H* Calcium 6.6 L Alkaline Phosphatase CK-MB (CK-2) Troponin T C-Reactive Protein Total Protein Albumin LDL Cholesterol Direct Salicylates < 0.3 L 07/03/17 07/03/17 07/03/17 01:04 02:15 02:15 WBC RBC Hgb Hct MCV MCHC RDW Plt Count Seg Neuts % (Manual) Lymphocytes % (Manual) Seg Neutrophils # Man Lymphocytes # (Manual) POC ABG pH POC ABG pCO2 POC ABG pO2 Sodium 134 L Potassium Chloride 97.6 L Carbon Dioxide 19 L BUN 50 H Creatinine 4.2 H Glucose 592 H* POC Glucose > 500 H Lactic Acid 4.30 H* Calcium 6.6 L Alkaline Phosphatase CK-MB (CK-2) Troponin T C-Reactive Protein Total Protein Albumin LDL Cholesterol Direct Salicylates 07/03/17 07/03/17 07/03/17 02:21 03:25 04:10 WBC RBC Hgb Hct MCV MCHC RDW Plt Count Seg Neuts % (Manual) Lymphocytes % (Manual) Seg Neutrophils # Man Lymphocytes # (Manual) POC ABG pH POC ABG pCO2 POC ABG pO2 Sodium Potassium Chloride Carbon Dioxide 19 L BUN 50 H Creatinine 4.0 H Glucose 416 H POC Glucose 482 H > 500 H Lactic Acid Calcium 6.8 L Alkaline Phosphatase CK-MB (CK-2) Troponin T C-Reactive Protein Total Protein Albumin LDL Cholesterol Direct Salicylates 07/03/17 07/03/17 07/03/17 04:30 04:36 05:33 WBC RBC Hgb Hct MCV MCHC RDW Plt Count Seg Neuts % (Manual) Lymphocytes % (Manual) Seg Neutrophils # Man Lymphocytes # (Manual) POC ABG pH 7.311 L POC ABG pCO2 33.5 L POC ABG pO2 73 L Sodium Potassium Chloride Carbon Dioxide BUN Creatinine Glucose POC Glucose 389 H 326 H Lactic Acid Calcium Alkaline Phosphatase CK-MB (CK-2) Troponin T C-Reactive Protein Total Protein Albumin LDL Cholesterol Direct Salicylates 07/03/17 07/03/17 07/03/17 06:06 07:38 09:58 WBC RBC Hgb Hct MCV MCHC RDW Plt Count Seg Neuts % (Manual) Lymphocytes % (Manual) Seg Neutrophils # Man Lymphocytes # (Manual) POC ABG pH POC ABG pCO2 POC ABG pO2 Sodium Potassium Chloride Carbon Dioxide BUN Creatinine Glucose POC Glucose 247 H 118 H 52 L Lactic Acid Calcium Alkaline Phosphatase CK-MB (CK-2) Troponin T C-Reactive Protein Total Protein Albumin LDL Cholesterol Direct Salicylates 07/03/17 07/03/17 07/03/17 11:00 13:16 15:02 WBC RBC Hgb Hct MCV MCHC RDW Plt Count Seg Neuts % (Manual) Lymphocytes % (Manual) Seg Neutrophils # Man Lymphocytes # (Manual) POC ABG pH POC ABG pCO2 POC ABG pO2 Sodium Potassium Chloride Carbon Dioxide BUN Creatinine Glucose POC Glucose 64 L 112 H 158 H Lactic Acid Calcium Alkaline Phosphatase CK-MB (CK-2) Troponin T C-Reactive Protein Total Protein Albumin LDL Cholesterol Direct Salicylates 07/03/17 07/03/17 07/03/17 18:17 Unknown Unknown WBC RBC Hgb Hct MCV MCHC RDW Plt Count Seg Neuts % (Manual) Lymphocytes % (Manual) Seg Neutrophils # Man Lymphocytes # (Manual) POC ABG pH POC ABG pCO2 POC ABG pO2 Sodium Potassium Chloride Carbon Dioxide BUN Creatinine Glucose POC Glucose 131 H Lactic Acid 2.40 H* Calcium Alkaline Phosphatase CK-MB (CK-2) Troponin T C-Reactive Protein 1.90 H Total Protein Albumin LDL Cholesterol Direct Salicylates 07/03/17 07/04/17 07/04/17 Unknown 00:13 02:04 WBC RBC Hgb Hct MCV MCHC RDW Plt Count Seg Neuts % (Manual) Lymphocytes % (Manual) Seg Neutrophils # Man Lymphocytes # (Manual) POC ABG pH POC ABG pCO2 POC ABG pO2 Sodium Potassium Chloride Carbon Dioxide BUN 52 H Creatinine 4.3 H Glucose POC Glucose 69 L 111 H Lactic Acid Calcium 7.2 L Alkaline Phosphatase CK-MB (CK-2) Troponin T C-Reactive Protein Total Protein Albumin LDL Cholesterol Direct Salicylates 07/04/17 07/04/17 07/04/17 04:38 08:00 08:00 WBC 28.3 H RBC 3.55 L Hgb 10.3 L Hct 31.2 L MCV MCHC RDW 15.3 H Plt Count 101 L Seg Neuts % (Manual) Lymphocytes % (Manual) Seg Neutrophils # Man Lymphocytes # (Manual) POC ABG pH POC ABG pCO2 27.6 L POC ABG pO2 Sodium Potassium Chloride Carbon Dioxide 20 L BUN 62 H Creatinine 4.7 H Glucose POC Glucose Lactic Acid Calcium 7.0 L Alkaline Phosphatase CK-MB (CK-2) Troponin T C-Reactive Protein Total Protein Albumin LDL Cholesterol Direct Salicylates 07/04/17 07/04/17 07/04/17 14:10 14:33 17:26 WBC RBC Hgb Hct MCV MCHC RDW Plt Count Seg Neuts % (Manual) Lymphocytes % (Manual) Seg Neutrophils # Man Lymphocytes # (Manual) POC ABG pH 7.474 H POC ABG pCO2 29.4 L POC ABG pO2 Sodium Potassium Chloride Carbon Dioxide BUN Creatinine Glucose POC Glucose 201 H Lactic Acid Calcium Alkaline Phosphatase CK-MB (CK-2) 4.3 H Troponin T 0.282 H* C-Reactive Protein Total Protein Albumin LDL Cholesterol Direct 22 L Salicylates 07/04/17 07/04/17 07/05/17 20:40 23:34 05:42 WBC RBC Hgb Hct MCV MCHC RDW Plt Count Seg Neuts % (Manual) Lymphocytes % (Manual) Seg Neutrophils # Man Lymphocytes # (Manual) POC ABG pH POC ABG pCO2 POC ABG pO2 Sodium Potassium Chloride Carbon Dioxide BUN Creatinine Glucose POC Glucose 188 H 126 H Lactic Acid Calcium Alkaline Phosphatase CK-MB (CK-2) Troponin T 0.276 H* C-Reactive Protein Total Protein Albumin LDL Cholesterol Direct Salicylates 07/05/17 07/05/17 07/05/17 07:50 Unknown Unknown WBC 22.2 H RBC 3.24 L Hgb 9.7 L Hct 28.6 L MCV MCHC RDW Plt Count 89 L Seg Neuts % (Manual) 89.0 H Lymphocytes % (Manual) 7.0 L Seg Neutrophils # Man 19.8 H Lymphocytes # (Manual) POC ABG pH POC ABG pCO2 POC ABG pO2 117 H Sodium Potassium 3.5 L Chloride Carbon Dioxide BUN 37 H Creatinine 3.1 H Glucose 120 H POC Glucose Lactic Acid Calcium 7.7 L Alkaline Phosphatase CK-MB (CK-2) Troponin T C-Reactive Protein Total Protein Albumin LDL Cholesterol Direct Salicylates 07/05/17 07/05/17 Unknown Unknown WBC RBC Hgb Hct MCV MCHC RDW Plt Count Seg Neuts % (Manual) Lymphocytes % (Manual) Seg Neutrophils # Man Lymphocytes # (Manual) POC ABG pH POC ABG pCO2 POC ABG pO2 Sodium Potassium Chloride Carbon Dioxide BUN Creatinine Glucose POC Glucose Lactic Acid 2.30 H* Calcium Alkaline Phosphatase CK-MB (CK-2) Troponin T C-Reactive Protein 9.90 H Total Protein Albumin LDL Cholesterol Direct Salicylates Allied health notes reviewed: RT
--- NOTE | 2017-07-05 10:21 | Progress Note ---
Assessment and Plan Impression: * End stage renal disease on HD * Cardiac arrest * Acute hypoxic respiratory failure on mechanical ventilation * Seizure disorder, new onset * Sepsis Plan: * Hemodialysis MWF schedule * UF as tolerated. Ca bath adjusted * Vent management per Pulm/CCM * Empiric abx * Neuro work up in progress - note plans for EEG * Adjust medications for renal function * Okay to remove gustafson catheter l Subjective Date of service: 07/05/17 Principal diagnosis: Acute Hypoxemic Resp Failure; S/P Cardiac Arrest; Hyperosmolar Non-ketotic Interval history: No acute events overnight. Objective - Vital Signs Vital signs: Vital Signs - 12hr 07/04/17 07/04/17 07/04/17 22:30 22:45 22:58 Temperature Pulse Rate 94 H 93 H 94 H Pulse Rate [ Anterior Bilateral Throughout] Pulse Rate [ From Monitor] Respiratory 10 L 13 Rate Respiratory Rate [Anterior Bilateral Throughout] Blood Pressure 141/69 146/69 146/69 O2 Sat by Pulse 100 100 Oximetry 07/04/17 07/04/17 07/04/17 23:00 23:15 23:30 Temperature Pulse Rate 93 H 93 H 94 H Pulse Rate [ Anterior Bilateral Throughout] Pulse Rate [ From Monitor] Respiratory 11 L 11 L 11 L Rate Respiratory Rate [Anterior Bilateral Throughout] Blood Pressure 145/71 146/72 144/69 O2 Sat by Pulse 100 100 100 Oximetry 07/04/17 07/04/17 07/05/17 23:37 23:45 00:00 Temperature 98.8 F Pulse Rate 93 H 91 H Pulse Rate [ Anterior Bilateral Throughout] Pulse Rate [ 96 H From Monitor] Respiratory 12 10 L Rate Respiratory Rate [Anterior Bilateral Throughout] Blood Pressure 138/65 131/62 O2 Sat by Pulse 99 99 Oximetry 07/05/17 07/05/17 07/05/17 00:15 00:30 00:45 Temperature Pulse Rate 90 89 90 Pulse Rate [ Anterior Bilateral Throughout] Pulse Rate [ From Monitor] Respiratory 11 L 11 L 12 Rate Respiratory Rate [Anterior Bilateral Throughout] Blood Pressure 128/65 129/64 129/63 O2 Sat by Pulse 100 100 100 Oximetry 07/05/17 07/05/17 07/05/17 01:00 01:11 01:12 Temperature Pulse Rate 87 90 Pulse Rate [ 90 Anterior Bilateral Throughout] Pulse Rate [ From Monitor] Respiratory 11 L Rate Respiratory 15 Rate [Anterior Bilateral Throughout] Blood Pressure 127/59 127/59 O2 Sat by Pulse 100 100 Oximetry 07/05/17 07/05/17 07/05/17 01:15 01:29 01:30 Temperature Pulse Rate 90 88 Pulse Rate [ 93 H Anterior Bilateral Throughout] Pulse Rate [ From Monitor] Respiratory 12 11 L Rate Respiratory 16 Rate [Anterior Bilateral Throughout] Blood Pressure 133/65 132/66 O2 Sat by Pulse 100 100 Oximetry 07/05/17 07/05/17 07/05/17 01:45 02:00 02:16 Temperature Pulse Rate 90 96 H 91 H Pulse Rate [ Anterior Bilateral Throughout] Pulse Rate [ From Monitor] Respiratory 11 L 14 16 Rate Respiratory Rate [Anterior Bilateral Throughout] Blood Pressure 131/64 143/68 136/69 O2 Sat by Pulse 100 99 100 Oximetry 07/05/17 07/05/17 07/05/17 02:30 02:45 03:00 Temperature Pulse Rate 90 89 91 H Pulse Rate [ Anterior Bilateral Throughout] Pulse Rate [ From Monitor] Respiratory 14 12 14 Rate Respiratory Rate [Anterior Bilateral Throughout] Blood Pressure 140/71 136/75 142/78 O2 Sat by Pulse 99 100 100 Oximetry 07/05/17 07/05/17 07/05/17 03:15 03:30 03:45 Temperature Pulse Rate 89 88 89 Pulse Rate [ Anterior Bilateral Throughout] Pulse Rate [ From Monitor] Respiratory 14 10 L 10 L Rate Respiratory Rate [Anterior Bilateral Throughout] Blood Pressure 139/71 139/71 124/70 O2 Sat by Pulse 100 100 Oximetry 07/05/17 07/05/17 07/05/17 04:00 04:15 04:30 Temperature 98.7 F Pulse Rate 90 90 90 Pulse Rate [ Anterior Bilateral Throughout] Pulse Rate [ From Monitor] Respiratory 10 L 11 L 9 L Rate Respiratory Rate [Anterior Bilateral Throughout] Blood Pressure 140/75 138/72 140/74 O2 Sat by Pulse 100 100 100 Oximetry 07/05/17 07/05/17 07/05/17 04:46 05:00 05:15 Temperature Pulse Rate 93 H 91 H 91 H Pulse Rate [ Anterior Bilateral Throughout] Pulse Rate [ From Monitor] Respiratory 14 10 L 11 L Rate Respiratory Rate [Anterior Bilateral Throughout] Blood Pressure 129/78 143/71 140/76 O2 Sat by Pulse 100 100 100 Oximetry 07/05/17 07/05/17 07/05/17 05:30 05:46 06:00 Temperature Pulse Rate 91 H 97 H 93 H Pulse Rate [ Anterior Bilateral Throughout] Pulse Rate [ From Monitor] Respiratory 13 12 12 Rate Respiratory Rate [Anterior Bilateral Throughout] Blood Pressure 145/74 153/82 151/77 O2 Sat by Pulse 100 100 100 Oximetry 07/05/17 07/05/17 07/05/17 06:02 06:15 07:38 Temperature Pulse Rate 90 93 H 92 H Pulse Rate [ Anterior Bilateral Throughout] Pulse Rate [ From Monitor] Respiratory 14 Rate Respiratory Rate [Anterior Bilateral Throughout] Blood Pressure 151/77 147/73 140/70 O2 Sat by Pulse 100 100 100 Oximetry 07/05/17 07/05/17 07/05/17 07:46 07:58 08:00 Temperature 98.4 F Pulse Rate Pulse Rate [ 94 H 94 H Anterior Bilateral Throughout] Pulse Rate [ From Monitor] Respiratory Rate Respiratory 18 12 Rate [Anterior Bilateral Throughout] Blood Pressure O2 Sat by Pulse Oximetry 07/05/17 09:06 Temperature Pulse Rate 93 H Pulse Rate [ Anterior Bilateral Throughout] Pulse Rate [ From Monitor] Respiratory Rate Respiratory Rate [Anterior Bilateral Throughout] Blood Pressure 140/67 O2 Sat by Pulse Oximetry - General Appearance General appearance: intubated EENT: ATNC, other (ETT in place) Respiratory: Present: Other (coarse breath sounds) Cardiology: regular, S1S2 Gastrointestinal: no tenderness, no distended Integumentary: no rash Neurologic: other (does not respond to tactile/verbal stimuli) Musculoskeletal: prevertebral tenderness, other (no edema) - Lab 07/05/17 Unknown 07/05/17 Unknown Most recent lab results Calcium 7.7 mg/dL (8.4-10.2) L 07/05/17 Unknown Phosphorus 3.80 mg/dL (2.5-4.5) 07/04/17 14:10 Magnesium 1.80 mg/dL (1.7-2.3) 07/04/17 14:10
[2017-07-05] MEDS: ASPIRIN PO SCH (10:23)
--- NOTE | 2017-07-05 12:44 | Progress Note ---
Assessment and Plan Assessment and plan: Acute respiratory failure Continue mechanical ventilation per pulmonary. DKA (diabetic ketoacidoses) Resolved. Discontinue Insulin drip protocol, serial bmp, monitor anion gap, IVF resuscitation. We will start long-acting insulin regimen. I discussed with pharmacy/nursing. Cardiac arrest Cardiology consultation. Check echocardiogram. Sepsis Present on admission. Leukocytosis worse. Blood cultures thus far negative. Consider ID consultation. Continue empiric antibiotics of vancomycin and Zosyn. Lactic acid acidosis Secondary to DKA, sepsis and Cardiac arrest, IVF resuscitation, treated DKA, repeat lactic acid level Metabolic encephalopathy Secondary to DKA complicated by cardiac arrest, supportive care, neuro checks. Anoxic brain damage S/P Cardiac arrest. Neurology following. Check EEG. Seizure disorder Neurology consultation pending. Follow-up EEG. Vomiting Etiology, may be secondary to obstruction. Check KUB. Continue NGT to suction DVT prophylaxis The high probability of a clinically significant, sudden or life threatening deterioration of the [respiratory, cardiac and neurological] system(s) required my full and direct attention, intervention and personal management. The aggregate critical care time was [31] minutes. This time is in addition to time spent performing reported procedures but includes the following: [x] Data Review and interpretation [x] Patient assessment and monitoring of vital signs [x] Documentation [x] Medication orders and management History Interval history: Patient is intubated on mechanical ventilation. Hospitalist Physical - Constitutional Vitals: Temp Pulse Resp BP Pulse Ox 98.1 F 89 14 135/71 98 07/05/17 12:00 07/05/17 12:15 07/05/17 12:15 07/05/17 12:15 07/05/17 12:15 General appearance: Present: other (intubated, unresponsive) - EENT Eyes: Present: PERRL, EOM intact ENT: hearing intact, clear oral mucosa, dentition normal - Neck Neck: Present: supple, normal ROM - Respiratory Respiratory effort: normal Respiratory: bilateral: CTA - Cardiovascular Rhythm: regular Heart Sounds: Present: S1 & S2. Absent: gallop, rub - Extremities Extremities: no ischemia, No edema, Full ROM - Abdominal General gastrointestinal: soft, non-tender, non-distended, normal bowel sounds - Integumentary Integumentary: Present: clear, warm, dry - Neurologic Neurologic: CNII-XII intact, moves all extremities Results - Labs CBC & Chem 7: 07/05/17 Unknown 07/05/17 Unknown Labs: Laboratory Last Values WBC 22.2 K/mm3 (4.5-11.0) H 07/05/17 Unknown RBC 3.24 M/mm3 (3.65-5.03) L 07/05/17 Unknown Hgb 9.7 gm/dl (11.8-15.2) L 07/05/17 Unknown Hct 28.6 % (35.5-45.6) L 07/05/17 Unknown MCV 88 fl (84-94) 07/05/17 Unknown MCH 30 pg (28-32) 07/05/17 Unknown MCHC 34 % (32-34) 07/05/17 Unknown RDW 15.2 % (13.2-15.2) 07/05/17 Unknown Plt Count 89 K/mm3 (140-440) L 07/05/17 Unknown Add Manual Diff Complete 07/05/17 Unknown Total Counted 100 07/05/17 Unknown Seg Neutrophils % [employer] 07/05/17 Unknown Seg Neuts % (Manual) 89.0 % (40.0-70.0) H 07/05/17 Unknown Band Neutrophils % 1.0 % 07/05/17 Unknown Lymphocytes % (Manual) 7.0 % (13.4-35.0) L 07/05/17 Unknown Reactive Lymphs % (Man) 0 % 07/05/17 Unknown Monocytes % (Manual) 3.0 % (0.0-7.3) 07/05/17 Unknown Eosinophils % (Manual) 0 % (0.0-4.3) 07/05/17 Unknown Basophils % (Manual) 0 % (0.0-1.8) 07/05/17 Unknown Metamyelocytes % 0 % 07/05/17 Unknown Myelocytes % 0 % 07/05/17 Unknown Promyelocytes % 0 % 07/05/17 Unknown Blast Cells % 0 % 07/05/17 Unknown Nucleated RBC % Not Reportable 07/05/17 Unknown Seg Neutrophils # Man 19.8 K/mm3 (1.8-7.7) H 07/05/17 Unknown Band Neutrophils # 0.2 K/mm3 07/05/17 Unknown Lymphocytes # (Manual) 1.6 K/mm3 (1.2-5.4) 07/05/17 Unknown Abs React Lymphs (Man) 0.0 K/mm3 07/05/17 Unknown Monocytes # (Manual) 0.7 K/mm3 (0.0-0.8) 07/05/17 Unknown Eosinophils # (Manual) 0.0 K/mm3 (0.0-0.4) 07/05/17 Unknown Basophils # (Manual) 0.0 K/mm3 (0.0-0.1) 07/05/17 Unknown Metamyelocytes # 0.0 K/mm3 07/05/17 Unknown Myelocytes # 0.0 K/mm3 07/05/17 Unknown Promyelocytes # 0.0 K/mm3 07/05/17 Unknown Blast Cells # 0.0 K/mm3 07/05/17 Unknown WBC Morphology Not Reportable 07/05/17 Unknown Hypersegmented Neuts Not Reportable 07/05/17 Unknown Hyposegmented Neuts Not Reportable 07/05/17 Unknown Hypogranular Neuts Not Reportable 07/05/17 Unknown Smudge Cells Not Reportable 07/05/17 Unknown Toxic Granulation Not Reportable 07/05/17 Unknown Toxic Vacuolation Not Reportable 07/05/17 Unknown Dohle Bodies Not Reportable 07/05/17 Unknown Pelger-Huet Anomaly Not Reportable 07/05/17 Unknown [place] Rods Not Reportable 07/05/17 Unknown Platelet Estimate Appears decreased 07/05/17 Unknown Clumped Platelets Not Reportable 07/05/17 Unknown Plt Clumps, EDTA Not Reportable 07/05/17 Unknown Large Platelets Not Reportable 07/05/17 Unknown Giant Platelets Not Reportable 07/05/17 Unknown Platelet Satelliting Not Reportable 07/05/17 Unknown Plt Morphology Comment Not Reportable 07/05/17 Unknown RBC Morphology Not Reportable 07/05/17 Unknown Dimorphic RBCs Not Reportable 07/05/17 Unknown Polychromasia Not Reportable 07/05/17 Unknown Hypochromasia Not Reportable 07/05/17 Unknown Poikilocytosis 1+ 07/05/17 Unknown Anisocytosis 1+ 07/05/17 Unknown Microcytosis Few 07/05/17 Unknown Macrocytosis Not Reportable 07/05/17 Unknown Spherocytes Not Reportable 07/05/17 Unknown Pappenheimer Bodies Not Reportable 07/05/17 Unknown Sickle Cells Not Reportable 07/05/17 Unknown Target Cells Not Reportable 07/05/17 Unknown Tear Drop Cells Not Reportable 07/05/17 Unknown Ovalocytes Not Reportable 07/05/17 Unknown Helmet Cells Not Reportable 07/05/17 Unknown [place] Bodies Not Reportable 07/05/17 Unknown [place] Rings Not Reportable 07/05/17 Unknown Bianca Cells Not Reportable 07/05/17 Unknown Bite Cells Not Reportable 07/05/17 Unknown Crenated Cell Not Reportable 07/05/17 Unknown Elliptocytes Not Reportable 07/05/17 Unknown Acanthocytes (Spur) Not Reportable 07/05/17 Unknown Rouleaux Not Reportable 07/05/17 Unknown Hemoglobin C Crystals Not Reportable 07/05/17 Unknown Schistocytes Not Reportable 07/05/17 Unknown Malaria parasites Not Reportable 07/05/17 Unknown Morales Bodies Not Reportable 07/05/17 Unknown Hem Pathologist Commnt No 07/05/17 Unknown POC ABG pH 7.437 (7.35-7.45) 07/05/17 07:50 POC ABG pCO2 36.3 (35-45) 07/05/17 07:50 POC ABG pO2 117 (80-105) H 07/05/17 07:50 POC ABG HCO3 24.5 07/05/17 07:50 POC ABG Total CO2 26 07/05/17 07:50 POC ABG O2 Sat 99 07/05/17 07:50 POC ABG Base Excess 0 07/05/17 07:50 FiO2 40 % 07/05/17 07:50 Sodium 138 mmol/L (137-145) 07/05/17 Unknown Potassium 3.5 mmol/L (3.6-5.0) L 07/05/17 Unknown Chloride 100.4 mmol/L (98-107) 07/05/17 Unknown Carbon Dioxide 27 mmol/L (22-30) D 07/05/17 Unknown Anion Gap 14 mmol/L 07/05/17 Unknown BUN 37 mg/dL (9-20) H 07/05/17 Unknown Creatinine 3.1 mg/dL (0.8-1.5) H 07/05/17 Unknown Estimated GFR 24 ml/min 07/05/17 Unknown BUN/Creatinine Ratio 12 % 07/05/17 Unknown Glucose 120 mg/dL (75-100) H 07/05/17 Unknown POC Glucose 110 (70-105) H 07/05/17 11:52 Osmolality 357 Mosm/kg 07/02/17 15:35 Lactic Acid 2.30 mmol/L (0.7-2.0) H* 07/05/17 Unknown Calcium 7.7 mg/dL (8.4-10.2) L 07/05/17 Unknown Phosphorus 3.80 mg/dL (2.5-4.5) 07/04/17 14:10 Magnesium 1.80 mg/dL (1.7-2.3) 07/04/17 14:10 Total Bilirubin 0.40 mg/dL (0.1-1.2) 07/02/17 Unknown AST 31 units/L (5-40) 07/02/17 Unknown ALT 23 units/L (7-56) 07/02/17 Unknown Alkaline Phosphatase 139 units/L (35-129) H 07/02/17 Unknown Total Creatine Kinase 93 units/L (55-170) 07/04/17 20:40 CK-MB (CK-2) 3.4 ng/mL (0.0-4.0) 07/04/17 20:40 CK-MB (CK-2) Rel Index 3.6 (0-4) 07/04/17 20:40 Troponin T 0.276 ng/mL (0.00-0.029) H* 07/04/17 20:40 C-Reactive Protein 9.90 mg/dL (0.00-1.30) H 07/05/17 Unknown Total Protein 6.1 g/dL (6.3-8.2) L 07/02/17 Unknown Albumin 3.3 g/dL (3.9-5) L 07/02/17 Unknown Albumin/Globulin Ratio 1.2 % 07/02/17 Unknown Triglycerides 83 mg/dL (2-149) 07/04/17 14:10 Cholesterol 83 mg/dL (50-199) 07/04/17 14:10 LDL Cholesterol Direct 22 mg/dL (50-130) L 07/04/17 14:10 HDL Cholesterol 45 mg/dL (40-59) 07/04/17 14:10 Cholesterol/HDL Ratio 1.84 % 07/04/17 14:10 TSH 3.200 mlU/mL (0.270-4.200) 07/02/17 Unknown Urine Color Yellow (Yellow) 07/02/17 17:25 Urine Turbidity Clear (Clear) 07/02/17 17:25 Urine pH 5.0 (5.0-7.0) 07/02/17 17:25 Ur Specific Sasser 1.018 (1.003-1.030) 07/02/17 17:25 Urine Protein 100 mg/dl mg/dL (Negative) 07/02/17 17:25 Urine Glucose (UA) >=500 mg/dL (Negative) 07/02/17 17:25 Urine Ketones Neg mg/dL (Negative) 07/02/17 17:25 Urine Blood Sm (Negative) 07/02/17 17:25 Urine Nitrite Neg (Negative) 07/02/17 17:25 Urine Bilirubin Neg (Negative) 07/02/17 17:25 Urine Urobilinogen < 2.0 mg/dL (<2.0) 07/02/17 17:25 Ur Leukocyte Esterase Neg (Negative) 07/02/17 17:25 Urine WBC (Auto) 1.0 /HPF (0.0-6.0) 07/02/17 17:25 Urine RBC (Auto) 2.0 /HPF (0.0-6.0) 07/02/17 17:25 U Epithel Cells (Auto) 1.0 /HPF (0-13.0) 07/02/17 17:25 Salicylates < 0.3 mg/dL (2.8-20.0) L 07/02/17 Unknown Urine Opiates Screen Presumptive negative 07/02/17 17:25 Urine Methadone Screen Presumptive negative 07/02/17 17:25 Acetaminophen < 15.0 ug/mL (10.0-30.0) 07/02/17 Unknown Ur Barbiturates Screen Presumptive negative 07/02/17 17:25 Ur Phencyclidine Scrn Presumptive negative 07/02/17 17:25 Ur Amphetamines Screen Presumptive negative 07/02/17 17:25 U Benzodiazepines Scrn Presumptive negative 07/02/17 17:25 Urine Cocaine Screen Presumptive negative 07/02/17 17:25 U Marijuana (THC) Screen Presumptive negative 07/02/17 17:25 Drugs of Abuse Note Disclamer 07/02/17 17:25 Plasma/Serum Alcohol < 0.01 gm% (0-0.07) 07/02/17 Unknown
[2017-07-05 13:29] LABS: Creatine Kinase MB 1.8 ng/mL (0.0-4.0)
--- NOTE | 2017-07-05 13:30 | Consultation ---
History of Present Illness - Reason for Consult Consult date: 07/05/17 septic shock Requesting physician: RC CARTER - History of Present Illness 75 yo male, resident of SNF with history of HTN, DM, ESRD on HD (M,W,F), Severe Malnutrition admitted on 07/02/17 after found with seizures and unresponsive. Pt unable to provide history. Seizure was witnessed by SNF staff. In the emergency department, initial temperature was 97.6, heart rate 85, blood pressure 111/72. Initial white count 13.5. Hemoglobin 9.9. Platelets 1:30. In in 4.3. Urinalysis was negative. CT of the head showed enlargement of the ventricles. CXR show no consolidation. He was found to be in respiratory distress. Then went into asystolic arrest. Patient was intubated and placed on vent support. Pt also found to be hypotensive after cardiac arrest and placed on pressor support. Serum glucose found to be above 1000. Microbiology: Blood cultures: 07/02 ngtd Urine cultures: Respiratory cultures: 07/02 ngtd Current Antimicrobials: Zosyn 07/02 Vanco 07/02 Previous Antimicrobials: Past History Past Medical History: diabetes, ESRD, hypertension Past Surgical History: Other (Permacath placement) Social history: single. denies: smoking, alcohol abuse Family history: no significant family history Medications and Allergies Allergies Allergy/AdvReac Type Severity Reaction Status Date / Time No Known Allergies Allergy Unverified 11/17/14 12:29 Home Medications Medication Instructions Recorded Confirmed Last Taken Type Aspirin EC [Aspirin Enteric Coated 81 mg PO QDAY #90 tablet. 11/19/14 Unknown Rx TAB] amLODIPine [Norvasc] 5 mg PO DAILY #90 tab 11/19/14 07/02/17 Unknown Rx Ascorbic Acid [Vitamin C] 500 mg PO DAILY 06/26/17 07/02/17 Unknown History Bisacodyl [Laxative] 5 mg PO DAILY 06/26/17 07/02/17 Unknown History Calcitriol [Rocaltrol] 0.25 mcg PO DAILY 06/26/17 07/02/17 Unknown History Carvedilol [Coreg] 12.5 mg PO BID 06/26/17 07/02/17 Unknown History Ferrous Sulfate [Feosol 325 MG tab] 325 mg PO BID 06/26/17 07/02/17 Unknown History Folic Acid [Folvite] 1 mg PO QDAY 06/26/17 07/02/17 Unknown History Insulin Lispro [Humalog 100 0 units SQ AC 06/26/17 07/02/17 Unknown History UNITS/ML Kwikpen] Multivitamin Tab W-MINERAL 1 each PO QD 06/26/17 07/02/17 Unknown History [Multiple Vitamin/Mineral (Theragran M)] Cephalexin [Keflex] 500 mg PO Q8HR 3 Days cap 06/28/17 07/02/17 Unknown Rx Insulin NPH/Regular [NovoLIN 70/30] 10 unit SUB-Q BIDDIAB 30 Days 06/28/1707/02 Unknown Rx units Active Meds: Active Medications Al Hydrox/Mg Hydrox/Simethicone (Alum-Mag Hydrox-Simeth [id number]/5ml) 30 ml PO Q4H PRN PRN Reason: Indigestion Albuterol/Ipratropium (Duoneb *Not For Prn Use*) 1 ampul IH Q8HRT [facility] Last Admin: 07/05/17 07:41 Dose: 1 ampul Lipase/Protease/Amylase (Pancreazcurt Porter 10,500 Unit) 1 each FEEDTUBE PRN PRN PRN Reason: For Clogged Feeding Tube Aspirin (Aspirin) 325 mg PO QDAY [facility] Last Admin: 07/05/17 10:23 Dose: 325 mg Bisacodyl (Dulcolax) 10 mg LA QDAY PRN PRN Reason: constipation unrelieved by MOM Calcitriol (Rocaltrol) 0.25 mcg PO DAILY [facility] Last Admin: 07/05/17 09:05 Dose: 0.25 mcg Carvedilol (Coreg) 12.5 mg PO BID [facility] Last Admin: 07/05/17 09:06 Dose: 12.5 mg Famotidine (Pepcid) 20 mg IV QDAY [facility] Last Admin: 07/05/17 09:06 Dose: 20 mg Ferrous Sulfate (Ferrous Sulfate) 300 mg PO BID [facility] Last Admin: 07/05/17 09:05 Dose: 300 mg Folic Acid (Folvite) 1 mg PO QDAY [facility] Last Admin: 07/05/17 09:06 Dose: 1 mg Heparin Sodium (Porcine) (Heparin) 5,000 unit SUB-Q Q12HR [facility] Last Admin: 07/05/17 09:06 Dose: 5,000 unit Heparin Sodium (Porcine) (Heparin) 5,000 unit IV IND[place] PRN PRN Reason: hemodialysis Last Admin: 07/04/17 17:23 Dose: 5,000 unit Hydrophilic Ointment (Vaseline Lip Therapy) 1 applic TP Q2HR PRN PRN Reason: Dry Lips Last Admin: 07/03/17 15:11 Dose: 1 applic Piperacillin Sod/Tazobactam Sod (Zosyn/Ns 2.25 Gm/50ml) 2.25 gm in 50 mls @ 100 mls/hr IV Q8H [facility] Last Admin: 07/05/17 06:03 Dose: 100 mls/hr Sodium Chloride (Nacl 0.9%) 100 mls @ 999 mls/hr IV INDIA PRN PRN Reason: Hypotension Vancomycin HCl (Vancomycin/Ns 1 Gm/250 Ml) 1 gm in 250 mls @ 167.007 mls/hr IV MoWeFr ONE Stop: 07/06/17 21:29 Insulin Aspart (Novolog) 0 units SUB-Q Q6HR [facility] PRN Reason: Protocol Last Admin: 07/05/17 06:05 Dose: Not Given Insulin Detemir (Levemir) 10 units SUB-Q QAMDIAB [facility] Last Admin: 07/05/17 09:05 Dose: 10 units Magnesium Hydroxide (Milk Of Magnesia) 30 ml PO Q4H PRN PRN Reason: Constipation Multivitamins/Minerals (Theragran-M Tab) 1 each PO QDAY [facility] Last Admin: 07/05/17 09:05 Dose: 1 each Simple Syrup (Simple Syrup) 15 ml FEEDTUBE PRN PRN PRN Reason: Hypoglycemia Simple Syrup (Simple Syrup) 30 ml FEEDTUBE PRN PRN PRN Reason: Hypoglycemia Sodium Bicarbonate (Sodium Bicarbonate) 325 mg FEEDTUBE PRN PRN PRN Reason: For Clogged Feeding Tube Vancomycin HCl (Vancomycin Pharmacy To Dose) 1 each IV PKCONSULT [facility] PRN Reason: Protocol Review of Systems ROS unobtainable: due to mental status Physical Examination - Physical Exam Narrative exam: General appearance: sedated on the vent Eyes: anicteric sclerae, moist conjunctivae; no lid-lag; PERRLA HENT: Atraumatic; oropharynx +ETT +NGT Neck: Trachea midline; supple, no thyromegaly or lymphadenopathy Lungs: CTA, with normal respiratory effort and no intercostal retractions CV: tachy Abdomen: Soft, non-tender Extremities: No peripheral edema or extremity lymphadenopathy Skin: Normal temperature, turgor and texture; no rash, ulcers or subcutaneous nodules Psych: unable to eval . Neuro: unable to eval Lines: right fem TLC, right IJ HD - Constitutional Vitals: Vital Signs Temp Pulse Resp BP Pulse Ox 98.1 F 89 14 135/71 98 07/05/17 12:00 07/05/17 12:15 07/05/17 12:15 07/05/17 12:15 07/05/17 12:15 Temperature -Last 24 Hours Temperature 98.1 F Temperature 98.4 F Temperature 98.7 F Temperature 98.8 F Temperature 97.4 F Temperature 97.3 F Temperature 97.8 F Temperature 98.0 F Results - Labs CBC & Chem 7: 07/05/17 Unknown 07/05/17 Unknown Labs: Abnormal lab results 07/04/17 07/04/17 07/04/17 Range/Units 14:10 14:33 17:26 WBC (4.5-11.0) K/mm3 RBC (3.65-5.03) M/mm3 Hgb (11.8-15.2) gm/dl Hct (35.5-45.6) % Plt Count (140-440) K/mm3 Seg Neuts % (Manual) (40.0-70.0) % Lymphocytes % (Manual) (13.4-35.0) % Seg Neutrophils # Man (1.8-7.7) K/mm3 POC ABG pH 7.474 H (7.35-7.45) POC ABG pCO2 29.4 L (35-45) POC ABG pO2 (80-105) Potassium (3.6-5.0) mmol/L BUN (9-20) mg/dL Creatinine (0.8-1.5) mg/dL Glucose (75-100) mg/dL POC Glucose 201 H (70-105) Lactic Acid (0.7-2.0) mmol/L Calcium (8.4-10.2) mg/dL CK-MB (CK-2) 4.3 H (0.0-4.0) ng/mL Troponin T 0.282 H* (0.00-0.029) ng/mL C-Reactive Protein (0.00-1.30) mg/dL LDL Cholesterol Direct 22 L (50-130) mg/dL 07/04/17 07/04/17 07/05/17 Range/Units 20:40 23:34 05:42 WBC (4.5-11.0) K/mm3 RBC (3.65-5.03) M/mm3 Hgb (11.8-15.2) gm/dl Hct (35.5-45.6) % Plt Count (140-440) K/mm3 Seg Neuts % (Manual) (40.0-70.0) % Lymphocytes % (Manual) (13.4-35.0) % Seg Neutrophils # Man (1.8-7.7) K/mm3 POC ABG pH (7.35-7.45) POC ABG pCO2 (35-45) POC ABG pO2 (80-105) Potassium (3.6-5.0) mmol/L BUN (9-20) mg/dL Creatinine (0.8-1.5) mg/dL Glucose (75-100) mg/dL POC Glucose 188 H 126 H (70-105) Lactic Acid (0.7-2.0) mmol/L Calcium (8.4-10.2) mg/dL CK-MB (CK-2) (0.0-4.0) ng/mL Troponin T 0.276 H* (0.00-0.029) ng/mL C-Reactive Protein (0.00-1.30) mg/dL LDL Cholesterol Direct (50-130) mg/dL 07/05/17 07/05/17 07/05/17 Range/Units 07:50 11:52 Unknown WBC 22.2 H (4.5-11.0) K/mm3 RBC 3.24 L (3.65-5.03) M/mm3 Hgb 9.7 L (11.8-15.2) gm/dl Hct 28.6 L (35.5-45.6) % Plt Count 89 L (140-440) K/mm3 Seg Neuts % (Manual) 89.0 H (40.0-70.0) % Lymphocytes % (Manual) 7.0 L (13.4-35.0) % Seg Neutrophils # Man 19.8 H (1.8-7.7) K/mm3 POC ABG pH (7.35-7.45) POC ABG pCO2 (35-45) POC ABG pO2 117 H (80-105) Potassium (3.6-5.0) mmol/L BUN (9-20) mg/dL Creatinine (0.8-1.5) mg/dL Glucose (75-100) mg/dL POC Glucose 110 H (70-105) Lactic Acid (0.7-2.0) mmol/L Calcium (8.4-10.2) mg/dL CK-MB (CK-2) (0.0-4.0) ng/mL Troponin T (0.00-0.029) ng/mL C-Reactive Protein (0.00-1.30) mg/dL LDL Cholesterol Direct (50-130) mg/dL 07/05/17 07/05/17 07/05/17 Range/Units Unknown Unknown Unknown WBC (4.5-11.0) K/mm3 RBC (3.65-5.03) M/mm3 Hgb (11.8-15.2) gm/dl Hct (35.5-45.6) % Plt Count (140-440) K/mm3 Seg Neuts % (Manual) (40.0-70.0) % Lymphocytes % (Manual) (13.4-35.0) % Seg Neutrophils # Man (1.8-7.7) K/mm3 POC ABG pH (7.35-7.45) POC ABG pCO2 (35-45) POC ABG pO2 (80-105) Potassium 3.5 L (3.6-5.0) mmol/L BUN 37 H (9-20) mg/dL Creatinine 3.1 H (0.8-1.5) mg/dL Glucose 120 H (75-100) mg/dL POC Glucose (70-105) Lactic Acid 2.30 H* (0.7-2.0) mmol/L Calcium 7.7 L (8.4-10.2) mg/dL CK-MB (CK-2) (0.0-4.0) ng/mL Troponin T (0.00-0.029) ng/mL C-Reactive Protein 9.90 H (0.00-1.30) mg/dL LDL Cholesterol Direct (50-130) mg/dL Assessment and Plan Assessment: 1) Shock after cardiac arrest (? cardiogenic ?hypovolemic ?septic): Present on admission, manifested by tachycardia, hypotension, leukocytosis, increased lactate. Septic component etiology unclear ? colitis ?pneumonitis 2) Seizures 3) DM-uncontrolled with DKA 4) ESRD on HD 5) Anemia / thrombocytopenia 6) Diarrhea ? colitis Plan: -follow-up blood cultures -obtain procalcitonin, C-reactive protein (CRP) -stop zosyn and vanco -start flagyl IV and cefepime for now - will stop cefepime soon -contact isolation -hemoocult -abdominal CT when stable -monitor diarrhea Thank you Dr Moore for your consultation, will follow up with you. Laura Crocker MD Infectious Diseases Specialist [facility] ([facility]) M [phone] O [phone]
[2017-07-05] MEDS: FLAGYL 500 MG/100 ML 500 MG/100 ML BAG IV SCH ×2 (14:36→21:00)
[2017-07-05] MEDS: SIMPLE SYRUP FEEDTUBE PRN (18:20)
[2017-07-06] MEDS: NOVOLOG SUB-Q SCH ×5 (00:30→23:38)
[2017-07-06 03:54] LABS: Basophils % (Auto) 0.2 % (0.0-1.8); Eosinophils % (Auto) 0.9 % (0.0-4.3); Hematocrit 27.8 % (35.5-45.6); Hemoglobin 9.3 gm/dl (11.8-15.2); Mean Corpuscular HGB Conc 34 % (32-34); Mean Corpuscular Hemoglobin 30 pg (28-32); Mean Corpuscular Volume 89 fl (84-94); Red Blood Count 3.14 M/mm3 (3.65-5.03); Red Cell Distribution Width 15.7 % (13.2-15.2); White Blood Count 17.7 K/mm3 (4.5-11.0)
[2017-07-06] MEDS: DUONEB *Not for PRN Use IH SCH ×4 (03:54→23:30)
[2017-07-06 04:01] LABS: Platelet Count 82 K/mm3 (140-440)
[2017-07-06 04:11] LABS: Calcium 7.4 mg/dL (8.4-10.2); Chloride 98.5 mmol/L (98-107); Potassium 3.3 mmol/L (3.6-5.0)
[2017-07-06 05:05] LABS: ISTAT Base Excess -1; ISTAT HCO3 23.3; ISTAT PCO2 34.3 (35-45); ISTAT PH 7.441 (7.35-7.45); ISTAT PO2 104 (80-105); ISTAT SO2 98; ISTAT TCO2 24
[2017-07-06] MEDS: FLAGYL 500 MG/100 ML 500 MG/100 ML BAG IV SCH ×3 (06:02→21:17)
--- NOTE | 2017-07-06 07:31 | XRay Report ---
Single view chest: Compared to 07/05/17. History: Followup of respiratory failure. Findings: Normal cardiomediastinal silhouette. Stable support system. Decrease in pulmonary venous congestion and probably slight decrease in pleural effusion compared to previous study. Impression: Slight improvement compared to previous study.
--- NOTE | 2017-07-06 07:40 | Progress Note ---
Assessment and Plan Acute Hypoxemic Respiratory Failure on MVS Seizure Disorder s/p Cardiac Arrest ESRD on Dialysis Sepsis Syndrome Hyperosmolar non ketotic state Anemia Leucocytosis Acute Encephalopathy Thrombocytopenia - ordered US guided thoracentesis to see if aids weaning - AMS will likely be a rate limiting factor to extubation - begin prn hydralazine and rsume home amlodipine dose - keep set rate at 12/min - daily PSV trials as tolerated - continue aspiration precautions / addressing VAP bundle daily - continue to wean FiO2 for sats > 94% - continue enteral nutrition as tolerated - continue bronchodilators and pulmonary toilet - continue and adjust AB's per ID recs - continue glycemic control withh SSI and levemir (target BG <180mg/dl) - continue GI & VTE prophylaxis - Continue to monitor platelet count while on heparin - continue other care per attending / other consultants - flu and pneumovax addressed per protocol ...case discussed at length during team layton rounds and care plan formulated ....32' CCT without overlap Subjective Date of service: 07/06/17 Principal diagnosis: Acute Hypoxemic Resp Failure; S/P Cardiac Arrest; Hyperosmolar Non-ketotic Interval history: Patient is seen today for: Acute Hypoxemic Resp Failure; S/P Cardiac Arrest; Hyperosmolar Non-ketotic Seen and examined at bedside; 24hour events reviewed; nursing and respiratory care staff consulted; no adverse overnight events reported to me; remains on MVS ; AMS is persistent and not tolerating weaning trials well; No emesis or overt aspiration reported; BP's running high now. Objective Vital Signs - 12hr 07/05/17 07/05/17 07/05/17 19:45 19:48 20:00 Temperature Pulse Rate 91 H 91 H 92 H Pulse Rate [ Anterior Bilateral Throughout] Pulse Rate [ From Monitor] Respiratory 12 15 Rate Respiratory Rate [Anterior Bilateral Throughout] Blood Pressure 156/73 153/74 O2 Sat by Pulse 100 100 100 Oximetry 07/05/17 07/05/17 07/05/17 20:08 20:15 20:30 Temperature Pulse Rate 91 H 93 H 93 H Pulse Rate [ Anterior Bilateral Throughout] Pulse Rate [ From Monitor] Respiratory 12 12 12 Rate Respiratory Rate [Anterior Bilateral Throughout] Blood Pressure 158/79 155/76 O2 Sat by Pulse 100 100 100 Oximetry 07/05/17 07/05/17 07/05/17 20:43 20:45 21:00 Temperature Pulse Rate 100 H 92 H 98 H Pulse Rate [ Anterior Bilateral Throughout] Pulse Rate [ 97 H From Monitor] Respiratory 12 13 Rate Respiratory Rate [Anterior Bilateral Throughout] Blood Pressure 155/76 160/78 160/78 O2 Sat by Pulse 100 100 Oximetry 07/05/17 07/05/17 07/05/17 21:07 21:15 21:30 Temperature Pulse Rate 97 H 92 H Pulse Rate [ 81 Anterior Bilateral Throughout] Pulse Rate [ From Monitor] Respiratory 13 12 Rate Respiratory 16 Rate [Anterior Bilateral Throughout] Blood Pressure 153/75 158/78 O2 Sat by Pulse 100 100 Oximetry 07/05/17 07/05/17 07/05/17 21:45 22:00 22:15 Temperature Pulse Rate 93 H 93 H 97 H Pulse Rate [ Anterior Bilateral Throughout] Pulse Rate [ From Monitor] Respiratory 12 11 L 14 Rate Respiratory Rate [Anterior Bilateral Throughout] Blood Pressure 160/77 161/78 161/78 O2 Sat by Pulse 100 100 100 Oximetry 07/05/17 07/05/17 07/05/17 22:30 22:45 23:00 Temperature Pulse Rate 100 H 100 H 97 H Pulse Rate [ Anterior Bilateral Throughout] Pulse Rate [ From Monitor] Respiratory 13 13 11 L Rate Respiratory Rate [Anterior Bilateral Throughout] Blood Pressure 171/88 165/83 156/77 O2 Sat by Pulse 100 100 100 Oximetry 07/05/17 07/05/17 07/05/17 23:15 23:16 23:30 Temperature 98.1 F Pulse Rate 98 H 100 H Pulse Rate [ Anterior Bilateral Throughout] Pulse Rate [ From Monitor] Respiratory 12 13 Rate Respiratory Rate [Anterior Bilateral Throughout] Blood Pressure 157/75 156/73 O2 Sat by Pulse 100 100 Oximetry 07/05/17 07/05/17 07/06/17 23:38 23:45 00:00 Temperature Pulse Rate 101 H 104 H 98 H Pulse Rate [ Anterior Bilateral Throughout] Pulse Rate [ From Monitor] Respiratory 18 13 Rate Respiratory Rate [Anterior Bilateral Throughout] Blood Pressure 156/73 160/77 142/69 O2 Sat by Pulse 100 100 100 Oximetry 07/06/17 07/06/17 07/06/17 00:15 00:30 00:40 Temperature Pulse Rate 99 H 96 H 92 H Pulse Rate [ Anterior Bilateral Throughout] Pulse Rate [ From Monitor] Respiratory 13 13 Rate Respiratory Rate [Anterior Bilateral Throughout] Blood Pressure 140/69 148/70 O2 Sat by Pulse 100 100 Oximetry 07/06/17 07/06/17 07/06/17 00:45 01:00 01:15 Temperature Pulse Rate 95 H 97 H 95 H Pulse Rate [ Anterior Bilateral Throughout] Pulse Rate [ 90 From Monitor] Respiratory 12 12 12 Rate Respiratory Rate [Anterior Bilateral Throughout] Blood Pressure 148/73 148/74 154/78 O2 Sat by Pulse 100 100 100 Oximetry 07/06/17 07/06/17 07/06/17 01:30 01:45 02:00 Temperature Pulse Rate 96 H 92 H 91 H Pulse Rate [ Anterior Bilateral Throughout] Pulse Rate [ From Monitor] Respiratory 13 13 12 Rate Respiratory Rate [Anterior Bilateral Throughout] Blood Pressure 154/75 157/85 163/81 O2 Sat by Pulse 100 100 100 Oximetry 07/06/17 07/06/17 07/06/17 02:15 02:30 02:45 Temperature Pulse Rate 92 H 90 92 H Pulse Rate [ Anterior Bilateral Throughout] Pulse Rate [ From Monitor] Respiratory 12 12 12 Rate Respiratory Rate [Anterior Bilateral Throughout] Blood Pressure 164/83 161/79 152/80 O2 Sat by Pulse 100 100 100 Oximetry 07/06/17 07/06/17 07/06/17 03:00 03:15 03:26 Temperature Pulse Rate 93 H 92 H 93 H Pulse Rate [ Anterior Bilateral Throughout] Pulse Rate [ From Monitor] Respiratory 12 12 12 Rate Respiratory Rate [Anterior Bilateral Throughout] Blood Pressure 145/82 161/79 O2 Sat by Pulse 100 100 100 Oximetry 07/06/17 07/06/17 07/06/17 03:31 03:38 03:45 Temperature 98.8 F Pulse Rate 93 H 91 H Pulse Rate [ Anterior Bilateral Throughout] Pulse Rate [ From Monitor] Respiratory 12 11 L Rate Respiratory Rate [Anterior Bilateral Throughout] Blood Pressure 154/79 162/82 O2 Sat by Pulse 100 100 Oximetry 07/06/17 07/06/17 07/06/17 04:00 04:15 04:30 Temperature Pulse Rate 98 H 94 H 96 H Pulse Rate [ Anterior Bilateral Throughout] Pulse Rate [ From Monitor] Respiratory 13 13 12 Rate Respiratory Rate [Anterior Bilateral Throughout] Blood Pressure 168/88 157/80 166/82 O2 Sat by Pulse 100 100 100 Oximetry 07/06/17 07/06/17 07/06/17 04:45 04:50 05:00 Temperature Pulse Rate 95 H 95 H 95 H Pulse Rate [ Anterior Bilateral Throughout] Pulse Rate [ From Monitor] Respiratory 12 11 L Rate Respiratory Rate [Anterior Bilateral Throughout] Blood Pressure 166/82 171/84 O2 Sat by Pulse 100 100 100 Oximetry 07/06/17 07/06/17 05:15 05:30 Temperature Pulse Rate 95 H 95 H Pulse Rate [ Anterior Bilateral Throughout] Pulse Rate [ From Monitor] Respiratory 12 11 L Rate Respiratory Rate [Anterior Bilateral Throughout] Blood Pressure 169/82 172/83 O2 Sat by Pulse 100 100 Oximetry Constitutional: no acute distress, other (encephalopathic) Eyes: non-icteric ENT: oropharynx moist, other (ETT at 24cm TIKI) Neck: supple, no lymphadenopathy, JVD, other (no thyromegally) Effort: mildly labored Ascultation: Bilateral: diminished breath sounds (bases), rales Percussion: Right: dull (base) Cardiovascular: regular rate and rhythm, other (no rubs / murmurs) Gastrointestinal: normoactive bowel sounds, soft, non-tender, non-distended, other (no HSM) Integumentary: normal Extremities: no cyanosis, no edema, pulses normal, no ischemia or petechiae Neurologic: normal mental status, non-focal exam, pupils equal and round, other (no spontaneous limb movements) Psychiatric: other (unable to assess) CBC and BMP: 07/07/17 05:00 07/07/17 05:00 ABG, PT/INR, D-dimer: ABG POC ABG pH 7.441 (7.35-7.45) 07/06/17 04:19 POC ABG pCO2 34.3 (35-45) L 07/06/17 04:19 POC ABG pO2 104 (80-105) 07/06/17 04:19 POC ABG HCO3 23.3 07/06/17 04:19 POC ABG Total CO2 24 07/06/17 04:19 POC ABG O2 Sat 98 07/06/17 04:19 Abnormal lab findings: Abnormal Labs 07/02/17 07/02/17 07/02/17 15:03 15:12 17:49 WBC 13.5 H RBC 3.47 L Hgb 9.9 L Hct 33.1 L MCV 96 H MCHC 30 L RDW 15.4 H Plt Count 130 L Lymph % (Auto) Lymph # [place] # Seg Neutrophils % Seg Neuts % (Manual) 95.0 H Lymphocytes % (Manual) 3.0 L Seg Neutrophils # Seg Neutrophils # Man 12.8 H Lymphocytes # (Manual) 0.4 L POC ABG pH POC ABG pCO2 POC ABG pO2 Sodium Potassium Chloride Carbon Dioxide BUN Creatinine Glucose POC Glucose > 500 H Lactic Acid 7.80 H* Calcium Alkaline Phosphatase CK-MB (CK-2) Troponin T C-Reactive Protein Total Protein Albumin LDL Cholesterol Direct Salicylates 07/02/17 07/02/17 07/02/17 20:29 21:31 23:38 WBC RBC Hgb Hct MCV MCHC RDW Plt Count Lymph % (Auto) Lymph # [place] # Seg Neutrophils % Seg Neuts % (Manual) Lymphocytes % (Manual) Seg Neutrophils # Seg Neutrophils # Man Lymphocytes # (Manual) POC ABG pH POC ABG pCO2 POC ABG pO2 Sodium 129 L 132 L Potassium Chloride 87.2 L 93.7 L Carbon Dioxide 18 L 15 L BUN 51 H 47 H Creatinine 4.3 H 4.1 H Glucose 950 H* 825 H* POC Glucose Lactic Acid 5.70 H* Calcium 7.1 L 6.8 L Alkaline Phosphatase CK-MB (CK-2) Troponin T C-Reactive Protein Total Protein Albumin LDL Cholesterol Direct Salicylates 07/02/17 07/02/17 07/02/17 23:38 23:44 Unknown WBC RBC Hgb Hct MCV MCHC RDW Plt Count Lymph % (Auto) Lymph # [place] # Seg Neutrophils % Seg Neuts % (Manual) Lymphocytes % (Manual) Seg Neutrophils # Seg Neutrophils # Man Lymphocytes # (Manual) POC ABG pH POC ABG pCO2 POC ABG pO2 Sodium 132 L 125 L D Potassium Chloride 94.6 L 85.6 L Carbon Dioxide 17 L 19 L D BUN 51 H 50 H Creatinine 4.1 H 4.4 H D Glucose 772 H* 1113 H* POC Glucose > 500 H Lactic Acid Calcium 6.7 L 7.2 L Alkaline Phosphatase 139 H CK-MB (CK-2) Troponin T C-Reactive Protein Total Protein 6.1 L Albumin 3.3 L LDL Cholesterol Direct Salicylates 07/02/17 07/02/17 07/03/17 Unknown Unknown 01:00 WBC RBC Hgb Hct MCV MCHC RDW Plt Count Lymph % (Auto) Lymph # [place] # Seg Neutrophils % Seg Neuts % (Manual) Lymphocytes % (Manual) Seg Neutrophils # Seg Neutrophils # Man Lymphocytes # (Manual) POC ABG pH POC ABG pCO2 POC ABG pO2 Sodium 134 L Potassium Chloride 96.4 L Carbon Dioxide 19 L BUN 50 H Creatinine 4.0 H Glucose 677 H* POC Glucose Lactic Acid 6.30 H* Calcium 6.6 L Alkaline Phosphatase CK-MB (CK-2) Troponin T C-Reactive Protein Total Protein Albumin LDL Cholesterol Direct Salicylates < 0.3 L 07/03/17 07/03/17 07/03/17 01:04 02:15 02:15 WBC RBC Hgb Hct MCV MCHC RDW Plt Count Lymph % (Auto) Lymph # [place] # Seg Neutrophils % Seg Neuts % (Manual) Lymphocytes % (Manual) Seg Neutrophils # Seg Neutrophils # Man Lymphocytes # (Manual) POC ABG pH POC ABG pCO2 POC ABG pO2 Sodium 134 L Potassium Chloride 97.6 L Carbon Dioxide 19 L BUN 50 H Creatinine 4.2 H Glucose 592 H* POC Glucose > 500 H Lactic Acid 4.30 H* Calcium 6.6 L Alkaline Phosphatase CK-MB (CK-2) Troponin T C-Reactive Protein Total Protein Albumin LDL Cholesterol Direct Salicylates 07/03/17 07/03/17 07/03/17 02:21 03:25 04:10 WBC RBC Hgb Hct MCV MCHC RDW Plt Count Lymph % (Auto) Lymph # [place] # Seg Neutrophils % Seg Neuts % (Manual) Lymphocytes % (Manual) Seg Neutrophils # Seg Neutrophils # Man Lymphocytes # (Manual) POC ABG pH POC ABG pCO2 POC ABG pO2 Sodium Potassium Chloride Carbon Dioxide 19 L BUN 50 H Creatinine 4.0 H Glucose 416 H POC Glucose 482 H > 500 H Lactic Acid Calcium 6.8 L Alkaline Phosphatase CK-MB (CK-2) Troponin T C-Reactive Protein Total Protein Albumin LDL Cholesterol Direct Salicylates 07/03/17 07/03/17 07/03/17 04:30 04:36 05:33 WBC RBC Hgb Hct MCV MCHC RDW Plt Count Lymph % (Auto) Lymph # [place] # Seg Neutrophils % Seg Neuts % (Manual) Lymphocytes % (Manual) Seg Neutrophils # Seg Neutrophils # Man Lymphocytes # (Manual) POC ABG pH 7.311 L POC ABG pCO2 33.5 L POC ABG pO2 73 L Sodium Potassium Chloride Carbon Dioxide BUN Creatinine Glucose POC Glucose 389 H 326 H Lactic Acid Calcium Alkaline Phosphatase CK-MB (CK-2) Troponin T C-Reactive Protein Total Protein Albumin LDL Cholesterol Direct Salicylates 07/03/17 07/03/17 07/03/17 06:06 07:38 09:58 WBC RBC Hgb Hct MCV MCHC RDW Plt Count Lymph % (Auto) Lymph # [place] # Seg Neutrophils % Seg Neuts % (Manual) Lymphocytes % (Manual) Seg Neutrophils # Seg Neutrophils # Man Lymphocytes # (Manual) POC ABG pH POC ABG pCO2 POC ABG pO2 Sodium Potassium Chloride Carbon Dioxide BUN Creatinine Glucose POC Glucose 247 H 118 H 52 L Lactic Acid Calcium Alkaline Phosphatase CK-MB (CK-2) Troponin T C-Reactive Protein Total Protein Albumin LDL Cholesterol Direct Salicylates 07/03/17 07/03/17 07/03/17 11:00 13:16 15:02 WBC RBC Hgb Hct MCV MCHC RDW Plt Count Lymph % (Auto) Lymph # [place] # Seg Neutrophils % Seg Neuts % (Manual) Lymphocytes % (Manual) Seg Neutrophils # Seg Neutrophils # Man Lymphocytes # (Manual) POC ABG pH POC ABG pCO2 POC ABG pO2 Sodium Potassium Chloride Carbon Dioxide BUN Creatinine Glucose POC Glucose 64 L 112 H 158 H Lactic Acid Calcium Alkaline Phosphatase CK-MB (CK-2) Troponin T C-Reactive Protein Total Protein Albumin LDL Cholesterol Direct Salicylates 07/03/17 07/03/17 07/03/17 18:17 Unknown Unknown WBC RBC Hgb Hct MCV MCHC RDW Plt Count Lymph % (Auto) Lymph # [place] # Seg Neutrophils % Seg Neuts % (Manual) Lymphocytes % (Manual) Seg Neutrophils # Seg Neutrophils # Man Lymphocytes # (Manual) POC ABG pH POC ABG pCO2 POC ABG pO2 Sodium Potassium Chloride Carbon Dioxide BUN Creatinine Glucose POC Glucose 131 H Lactic Acid 2.40 H* Calcium Alkaline Phosphatase CK-MB (CK-2) Troponin T C-Reactive Protein 1.90 H Total Protein Albumin LDL Cholesterol Direct Salicylates 07/03/17 07/04/17 07/04/17 Unknown 00:13 02:04 WBC RBC Hgb Hct MCV MCHC RDW Plt Count Lymph % (Auto) Lymph # [place] # Seg Neutrophils % Seg Neuts % (Manual) Lymphocytes % (Manual) Seg Neutrophils # Seg Neutrophils # Man Lymphocytes # (Manual) POC ABG pH POC ABG pCO2 POC ABG pO2 Sodium Potassium Chloride Carbon Dioxide BUN 52 H Creatinine 4.3 H Glucose POC Glucose 69 L 111 H Lactic Acid Calcium 7.2 L Alkaline Phosphatase CK-MB (CK-2) Troponin T C-Reactive Protein Total Protein Albumin LDL Cholesterol Direct Salicylates 07/04/17 07/04/17 07/04/17 04:38 08:00 08:00 WBC 28.3 H RBC 3.55 L Hgb 10.3 L Hct 31.2 L MCV MCHC RDW 15.3 H Plt Count 101 L Lymph % (Auto) Lymph # [place] # Seg Neutrophils % Seg Neuts % (Manual) Lymphocytes % (Manual) Seg Neutrophils # Seg Neutrophils # Man Lymphocytes # (Manual) POC ABG pH POC ABG pCO2 27.6 L POC ABG pO2 Sodium Potassium Chloride Carbon Dioxide 20 L BUN 62 H Creatinine 4.7 H Glucose POC Glucose Lactic Acid Calcium 7.0 L Alkaline Phosphatase CK-MB (CK-2) Troponin T C-Reactive Protein Total Protein Albumin LDL Cholesterol Direct Salicylates 07/04/17 07/04/17 07/04/17 14:10 14:33 17:26 WBC RBC Hgb Hct MCV MCHC RDW Plt Count Lymph % (Auto) Lymph # [place] # Seg Neutrophils % Seg Neuts % (Manual) Lymphocytes % (Manual) Seg Neutrophils # Seg Neutrophils # Man Lymphocytes # (Manual) POC ABG pH 7.474 H POC ABG pCO2 29.4 L POC ABG pO2 Sodium Potassium Chloride Carbon Dioxide BUN Creatinine Glucose POC Glucose 201 H Lactic Acid Calcium Alkaline Phosphatase CK-MB (CK-2) 4.3 H Troponin T 0.282 H* C-Reactive Protein Total Protein Albumin LDL Cholesterol Direct 22 L Salicylates 07/04/17 07/04/17 07/05/17 20:40 23:34 05:42 WBC RBC Hgb Hct MCV MCHC RDW Plt Count Lymph % (Auto) Lymph # [place] # Seg Neutrophils % Seg Neuts % (Manual) Lymphocytes % (Manual) Seg Neutrophils # Seg Neutrophils # Man Lymphocytes # (Manual) POC ABG pH POC ABG pCO2 POC ABG pO2 Sodium Potassium Chloride Carbon Dioxide BUN Creatinine Glucose POC Glucose 188 H 126 H Lactic Acid Calcium Alkaline Phosphatase CK-MB (CK-2) Troponin T 0.276 H* C-Reactive Protein Total Protein Albumin LDL Cholesterol Direct Salicylates 11/07/05/17 07/05/17 07:50 11:52 12:40 WBC RBC Hgb Hct MCV MCHC RDW Plt Count Lymph % (Auto) Lymph # [place] # Seg Neutrophils % Seg Neuts % (Manual) Lymphocytes % (Manual) Seg Neutrophils # Seg Neutrophils # Man Lymphocytes # (Manual) POC ABG pH POC ABG pCO2 POC ABG pO2 117 H Sodium Potassium Chloride Carbon Dioxide BUN Creatinine Glucose POC Glucose 110 H Lactic Acid Calcium Alkaline Phosphatase CK-MB (CK-2) Troponin T 0.277 H* C-Reactive Protein Total Protein Albumin LDL Cholesterol Direct Salicylates 07/05/17 07/05/17 07/05/17 17:51 18:12 Unknown WBC 22.2 H RBC 3.24 L Hgb 9.7 L Hct 28.6 L MCV MCHC RDW Plt Count 89 L Lymph % (Auto) Lymph # [place] # Seg Neutrophils % Seg Neuts % (Manual) 89.0 H Lymphocytes % (Manual) 7.0 L Seg Neutrophils # Seg Neutrophils # Man 19.8 H Lymphocytes # (Manual) POC ABG pH POC ABG pCO2 POC ABG pO2 Sodium Potassium Chloride Carbon Dioxide BUN Creatinine Glucose POC Glucose 57 L 69 L Lactic Acid Calcium Alkaline Phosphatase CK-MB (CK-2) Troponin T C-Reactive Protein Total Protein Albumin LDL Cholesterol Direct Salicylates 07/05/17 07/05/17 07/05/17 Unknown Unknown Unknown WBC RBC Hgb Hct MCV MCHC RDW Plt Count Lymph % (Auto) Lymph # [place] # Seg Neutrophils % Seg Neuts % (Manual) Lymphocytes % (Manual) Seg Neutrophils # Seg Neutrophils # Man Lymphocytes # (Manual) POC ABG pH POC ABG pCO2 POC ABG pO2 Sodium Potassium 3.5 L Chloride Carbon Dioxide BUN 37 H Creatinine 3.1 H Glucose 120 H POC Glucose Lactic Acid 2.30 H* Calcium 7.7 L Alkaline Phosphatase CK-MB (CK-2) Troponin T C-Reactive Protein 9.90 H Total Protein Albumin LDL Cholesterol Direct Salicylates 07/06/17 07/06/17 07/06/17 03:25 03:25 04:19 WBC 17.7 H RBC 3.14 L Hgb 9.3 L Hct 27.8 L MCV MCHC RDW 15.7 H Plt Count 82 L Lymph % (Auto) 2.5 L Lymph # 0.4 L [place] # 1.1 H Seg Neutrophils % 90.0 H Seg Neuts % (Manual) Lymphocytes % (Manual) Seg Neutrophils # 15.9 H Seg Neutrophils # Man Lymphocytes # (Manual) POC ABG pH POC ABG pCO2 34.3 L POC ABG pO2 Sodium Potassium 3.3 L Chloride Carbon Dioxide BUN 44 H Creatinine 3.6 H Glucose 132 H POC Glucose Lactic Acid Calcium 7.4 L Alkaline Phosphatase CK-MB (CK-2) Troponin T C-Reactive Protein Total Protein Albumin LDL Cholesterol Direct Salicylates 07/06/17 05:24 WBC RBC Hgb Hct MCV MCHC RDW Plt Count Lymph % (Auto) Lymph # [place] # Seg Neutrophils % Seg Neuts % (Manual) Lymphocytes % (Manual) Seg Neutrophils # Seg Neutrophils # Man Lymphocytes # (Manual) POC ABG pH POC ABG pCO2 POC ABG pO2 Sodium Potassium Chloride Carbon Dioxide BUN Creatinine Glucose POC Glucose 174 H Lactic Acid Calcium Alkaline Phosphatase CK-MB (CK-2) Troponin T C-Reactive Protein Total Protein Albumin LDL Cholesterol Direct Salicylates Chest x-ray: image reviewed (R>L pleural effusions; ETT riding a little low) Allied health notes reviewed: nursing
[2017-07-06] MEDS ORDERED: POTASSIUM CHLORIDE FEEDTUBE ONE (08:00)
[2017-07-06 09:12] LABS: INR 0.93 (0.87-1.13)
[2017-07-06] MEDS ORDERED: APRESOLINE IV PRN (09:13)
[2017-07-06 09:23] LABS: Total Protein 4.9 g/dL (6.3-8.2)
[2017-07-06] MEDS: PEPCID IV SCH (09:45)
[2017-07-06] MEDS: ROCALTROL PO SCH (09:45)
[2017-07-06] MEDS: FERROUS SULFATE PO SCH ×2 (09:45→21:17)
[2017-07-06] MEDS: COREG PO SCH ×2 (09:46→21:17)
[2017-07-06] MEDS: THERAGRAN-M Tab PO SCH (09:46)
[2017-07-06] MEDS: MAXIPIME/NS 1 GM/100 ML 1 GM/100 ML BAG IV SCH (09:46)
[2017-07-06] MEDS: FOLVITE PO SCH (09:46)
[2017-07-06] MEDS: LEVEMIR SUB-Q SCH ×2 (09:47→10:02)
[2017-07-06] MEDS: ASPIRIN PO SCH (09:47)
--- NOTE | 2017-07-06 11:01 | Progress Note ---
Assessment and Plan Assessment: 1) Shock after cardiac arrest (? cardiogenic ?hypovolemic ?septic): better off pressors. Septic component etiology unclear ? colitis ?pneumonitis. CRP=9 2) Seizures ? 3) DM-uncontrolled with DKA 4) ESRD on HD 5) Anemia / thrombocytopenia 6) Bloody Diarrhea versus melena ? colitis ?GI bleed Plan: -GI med eval r/o GI bleed -follow-up blood cultures -follow-up procalcitonin -continue flagyl IV and cefepime for now - will stop cefepime soon -contact isolation -abdominal CT when stable I will be off this weekend, I will be available over the phone. Thank you Dr Moore for your consultation, will follow up with you. Laura Crocker MD Infectious Diseases Specialist [facility] [phone] O [phone] Subjective Date of service: 07/06/17 Principal diagnosis: Acute Hypoxemic Resp Failure; S/P Cardiac Arrest; Hyperosmolar Non-ketotic Interval history: Remains on the vent, opens eyes not tracking, +t feeds + black loose stools on flexiseal Microbiology: Blood cultures: 07/02 ngtd Urine cultures: Respiratory cultures: 07/02 Sandra Current Antimicrobials: Zosyn 07/02 Vanco 07/02 Previous Antimicrobials: Objective - Exam Narrative Exam: General appearance: sedated on the vent Eyes: anicteric sclerae, moist conjunctivae; no lid-lag; PERRLA HENT: Atraumatic; oropharynx +ETT +NGT Neck: Trachea midline; supple, no thyromegaly or lymphadenopathy Lungs: CTA, with normal respiratory effort and no intercostal retractions CV: tachy Abdomen: Soft, non-tender Extremities: No peripheral edema or extremity lymphadenopathy Skin: Normal temperature, turgor and texture; no rash, ulcers or subcutaneous nodules Psych: unable to eval . Neuro: unable to eval Lines: right fem TLC, right IJ HD - Constitutional Vitals: Vital Signs Temp Pulse Resp BP Pulse Ox 98.6 F 93 H 12 150/76 100 07/06/17 08:00 07/06/17 10:30 07/06/17 10:30 07/06/17 10:30 07/06/17 10:30 Temperature -Last 24 Hours Temperature 98.6 F Temperature 98.8 F Temperature 98.1 F Temperature 98.8 F Temperature 97.9 F Temperature 97.9 F Temperature 98.1 F - Labs CBC & Chem 7: 07/06/17 03:25 07/06/17 03:25 Labs: Abnormal lab results 07/05/17 07/05/17 07/05/17 Range/Units 11:52 12:40 17:51 WBC (4.5-11.0) K/mm3 RBC (3.65-5.03) M/mm3 Hgb (11.8-15.2) gm/dl Hct (35.5-45.6) % RDW (13.2-15.2) % Plt Count (140-440) K/mm3 Lymph % (Auto) (13.4-35.0) % Lymph # (1.2-5.4) K/mm3 Cass # (0.0-0.8) K/mm3 Seg Neutrophils % (40.0-70.0) % Seg Neutrophils # (1.8-7.7) K/mm3 POC ABG pCO2 (35-45) Potassium (3.6-5.0) mmol/L BUN (9-20) mg/dL Creatinine (0.8-1.5) mg/dL Glucose (75-100) mg/dL POC Glucose 110 H 57 L (70-105) Calcium (8.4-10.2) mg/dL Lactate Dehydrogenase (91-180) units/L Troponin T 0.277 H* (0.00-0.029) ng/mL Total Protein (6.3-8.2) g/dL 07/05/17 07/06/17 07/06/17 Range/Units 18:12 03:25 03:25 WBC 17.7 H (4.5-11.0) K/mm3 RBC 3.14 L (3.65-5.03) M/mm3 Hgb 9.3 L (11.8-15.2) gm/dl Hct 27.8 L (35.5-45.6) % RDW 15.7 H (13.2-15.2) % Plt Count 82 L (140-440) K/mm3 Lymph % (Auto) 2.5 L (13.4-35.0) % Lymph # 0.4 L (1.2-5.4) K/mm3 [place] # 1.1 H (0.0-0.8) K/mm3 Seg Neutrophils % 90.0 H (40.0-70.0) % Seg Neutrophils # 15.9 H (1.8-7.7) K/mm3 POC ABG pCO2 (35-45) Potassium 3.3 L (3.6-5.0) mmol/L BUN 44 H (9-20) mg/dL Creatinine 3.6 H (0.8-1.5) mg/dL Glucose 132 H (75-100) mg/dL POC Glucose 69 L (70-105) Calcium 7.4 L (8.4-10.2) mg/dL Lactate Dehydrogenase (91-180) units/L Troponin T (0.00-0.029) ng/mL Total Protein (6.3-8.2) g/dL 07/06/17 07/06/17 07/06/17 Range/Units 04:19 05:24 08:30 WBC (4.5-11.0) K/mm3 RBC (3.65-5.03) M/mm3 Hgb (11.8-15.2) gm/dl Hct (35.5-45.6) % RDW (13.2-15.2) % Plt Count (140-440) K/mm3 Lymph % (Auto) (13.4-35.0) % Lymph # (1.2-5.4) K/mm3 [place] # (0.0-0.8) K/mm3 Seg Neutrophils % (40.0-70.0) % Seg Neutrophils # (1.8-7.7) K/mm3 POC ABG pCO2 34.3 L (35-45) Potassium (3.6-5.0) mmol/L BUN (9-20) mg/dL Creatinine (0.8-1.5) mg/dL Glucose (75-100) mg/dL POC Glucose 174 H (70-105) Calcium (8.4-10.2) mg/dL Lactate Dehydrogenase 880 H (91-180) units/L Troponin T (0.00-0.029) ng/mL Total Protein 4.9 L (6.3-8.2) g/dL
--- NOTE | 2017-07-06 11:31 | Progress Note ---
Assessment and Plan Assessment: S/p cardiopulmonary arrest - PEA in ED; intubated; currently in SR on tele with no arrhythmias noted on tele since ICU admission NSTEMI type II - flat; repeat EKG with no acute ischemic changes. AMS - ? anoxic brain injury; head CT with NAF DKA Seizure d/o - EEG pending HTN DM / Hyperosmolar non ketotic state Lactic acidosis / leukocytosis / ? sepsis Hyponatremia - improved Anemia Thrombocytopenia Plan: Echo reviewed - EF 45-50%, mild to mod LVH, abnormal LV diastolic function, large pleural effusion. Cont present cardiac regimen. Cont supportive management. Plan for ischemic evaluation once medically stabilized. Will follow peripherally over the weekend. The patient has been seen in conjunction with Dr. Hand who agrees with the assessment and plan of care. Subjective Date of service: 07/06/17 Principal diagnosis: Acute Hypoxemic Resp Failure; S/P Cardiac Arrest; Hyperosmolar Non-ketotic Interval history: pt remains intubated, unresponsive, off pressors. Objective Last Vital Signs Temp 98.6 F 07/06/17 08:00 Pulse 93 H 07/06/17 10:30 Resp 12 07/06/17 10:30 BP 150/76 07/06/17 10:30 Pulse Ox 100 07/06/17 10:30 - Physical Examination General: Other (intubated, unresponsive) HEENT: Positive: PERRL Neck: Positive: neck supple Cardiac: Positive: Reg Rate and Rhythm, S1/S2 Lungs: Positive: Rhonchi Neuro: Positive: Other (intubated, unresponsive) Abdomen: Positive: Active Bowel Sounds Skin: Positive: Clear. Negative: Rash, Wound Musculoskeletal: No Fluid Collection, No Pain, Normal Range of Motion Extremities: Absent: edema - Labs and Meds Cardiac Enzymes 07/05/17 07/06/17 Range/Units 12:40 08:30 Lactate Dehydrogenase 880 H (91-180) units/L CK-MB (CK-2) 1.8 (0.0-4.0) ng/mL Coagulation 07/06/17 Range/Units 08:30 PT 12.9 (12.2-14.9) Sec. INR 0.93 (0.87-1.13) CBC 07/06/17 Range/Units 03:25 WBC 17.7 H (4.5-11.0) K/mm3 RBC 3.14 L (3.65-5.03) M/mm3 Hgb 9.3 L (11.8-15.2) gm/dl Hct 27.8 L (35.5-45.6) % Plt Count 82 L (140-440) K/mm3 Lymph # 0.4 L (1.2-5.4) K/mm3 Heard # 1.1 H (0.0-0.8) K/mm3 Eos # 0.2 (0.0-0.4) K/mm3 Baso # 0.0 (0.0-0.1) K/mm3 Comprehensive Metabolic Panel 07/06/17 07/06/17 Range/Units 03:25 08:30 Sodium 138 (137-145) mmol/L Potassium 3.3 L (3.6-5.0) mmol/L Chloride 98.5 (98-107) mmol/L Carbon Dioxide 24 (22-30) mmol/L BUN 44 H (9-20) mg/dL Creatinine 3.6 H (0.8-1.5) mg/dL Glucose 132 H (75-100) mg/dL Calcium 7.4 L (8.4-10.2) mg/dL Total Protein 4.9 L (6.3-8.2) g/dL - Imaging and Cardiology EKG: report reviewed, image reviewed Echo: report reviewed (06/27/2017 showed EF 50-55%, mild LVH, impaired relaxation , RA mildly dilated, mild MR, mild pulm HTN with RVSP 45mmHg, moderate pleural fluid) - EKG Sinus rhythms and dysrhythmias: sinus rhythm AV and intraventricular conduction: right bundle branch block - Allied health notes Allied health notes reviewed: nursing
--- NOTE | 2017-07-06 12:32 | Progress Note ---
Assessment and Plan Assessment and plan: Acute respiratory failure Continue mechanical ventilation per pulmonary. DKA (diabetic ketoacidoses) Resolved. Discontinue Insulin drip protocol, serial bmp, monitor anion gap, IVF resuscitation. We will start long-acting insulin regimen. I discussed with pharmacy/nursing. Cardiac arrest Cardiology following Sepsis Present on admission. Leukocytosis worse. Blood cultures thus far negative. Consider ID consultation. Continue empiric antibiotics of vancomycin and Zosyn. Lactic acid acidosis Secondary to DKA, sepsis and Cardiac arrest, IVF resuscitation, treated DKA, repeat lactic acid level Metabolic encephalopathy Secondary to DKA complicated by cardiac arrest, supportive care, neuro checks. Anoxic brain damage S/P Cardiac arrest. Neurology following. Check EEG. Seizure disorder Neurology consultation pending. Follow-up EEG. Vomiting Etiology, may be secondary to obstruction. Check KUB. Continue NGT to suction DVT prophylaxis Anemia/ Melena GI consultation to rule out bleeding. Consider abdominal CT were medically stable. The high probability of a clinically significant, sudden or life threatening deterioration of the [respiratory, cardiac and neurological] system(s) required my full and direct attention, intervention and personal management. The aggregate critical care time was [31] minutes. This time is in addition to time spent performing reported procedures but includes the following: [x] Data Review and interpretation [x] Patient assessment and monitoring of vital signs [x] Documentation [x] Medication orders and management History Interval history: Patient is intubated on mechanical ventilation. Hospitalist Physical - Constitutional Vitals: Temp Pulse Resp BP Pulse Ox 97.4 F L 93 H 12 150/76 100 07/06/17 11:00 07/06/17 10:30 07/06/17 10:30 07/06/17 10:30 07/06/17 10:30 General appearance: Present: other (intubated, unresponsive) - EENT Eyes: Present: PERRL, EOM intact ENT: hearing intact, clear oral mucosa, dentition normal - Neck Neck: Present: supple, normal ROM - Respiratory Respiratory effort: normal Respiratory: bilateral: CTA - Cardiovascular Rhythm: regular Heart Sounds: Present: S1 & S2. Absent: gallop, rub - Extremities Extremities: no ischemia, No edema, Full ROM - Abdominal General gastrointestinal: soft, non-tender, non-distended, normal bowel sounds - Integumentary Integumentary: Present: clear, warm, dry - Neurologic Neurologic: CNII-XII intact, moves all extremities Results - Labs CBC & Chem 7: 07/06/17 03:25 07/06/17 03:25 Labs: Laboratory Last Values WBC 17.7 K/mm3 (4.5-11.0) H 07/06/17 03:25 RBC 3.14 M/mm3 (3.65-5.03) L 07/06/17 03:25 Hgb 9.3 gm/dl (11.8-15.2) L 07/06/17 03:25 Hct 27.8 % (35.5-45.6) L 07/06/17 03:25 MCV 89 fl (84-94) 07/06/17 03:25 MCH 30 pg (28-32) 07/06/17 03:25 MCHC 34 % (32-34) 07/06/17 03:25 RDW 15.7 % (13.2-15.2) H 07/06/17 03:25 Plt Count 82 K/mm3 (140-440) L 07/06/17 03:25 Lymph % (Auto) 2.5 % (13.4-35.0) L 07/06/17 03:25 Henry % (Auto) 6.4 % (0.0-7.3) 07/06/17 03:25 Eos % (Auto) 0.9 % (0.0-4.3) 07/06/17 03:25 Baso % (Auto) 0.2 % (0.0-1.8) 07/06/17 03:25 Lymph # 0.4 K/mm3 (1.2-5.4) L 07/06/17 03:25 Henry # 1.1 K/mm3 (0.0-0.8) H 07/06/17 03:25 Eos # 0.2 K/mm3 (0.0-0.4) 07/06/17 03:25 Baso # 0.0 K/mm3 (0.0-0.1) 07/06/17 03:25 Add Manual Diff Complete 07/05/17 Unknown Total Counted 100 07/05/17 Unknown Seg Neutrophils % 90.0 % (40.0-70.0) H 07/06/17 03:25 Seg Neuts % (Manual) 89.0 % (40.0-70.0) H 07/05/17 Unknown Band Neutrophils % 1.0 % 07/05/17 Unknown Lymphocytes % (Manual) 7.0 % (13.4-35.0) L 07/05/17 Unknown Reactive Lymphs % (Man) 0 % 07/05/17 Unknown Monocytes % (Manual) 3.0 % (0.0-7.3) 07/05/17 Unknown Eosinophils % (Manual) 0 % (0.0-4.3) 07/05/17 Unknown Basophils % (Manual) 0 % (0.0-1.8) 07/05/17 Unknown Metamyelocytes % 0 % 07/05/17 Unknown Myelocytes % 0 % 07/05/17 Unknown Promyelocytes % 0 % 07/05/17 Unknown Blast Cells % 0 % 07/05/17 Unknown Nucleated RBC % Not Reportable 07/05/17 Unknown Seg Neutrophils # 15.9 K/mm3 (1.8-7.7) H 07/06/17 03:25 Seg Neutrophils # Man 19.8 K/mm3 (1.8-7.7) H 07/05/17 Unknown Band Neutrophils # 0.2 K/mm3 07/05/17 Unknown Lymphocytes # (Manual) 1.6 K/mm3 (1.2-5.4) 07/05/17 Unknown Abs React Lymphs (Man) 0.0 K/mm3 07/05/17 Unknown Monocytes # (Manual) 0.7 K/mm3 (0.0-0.8) 07/05/17 Unknown Eosinophils # (Manual) 0.0 K/mm3 (0.0-0.4) 07/05/17 Unknown Basophils # (Manual) 0.0 K/mm3 (0.0-0.1) 07/05/17 Unknown Metamyelocytes # 0.0 K/mm3 07/05/17 Unknown Myelocytes # 0.0 K/mm3 07/05/17 Unknown Promyelocytes # 0.0 K/mm3 07/05/17 Unknown Blast Cells # 0.0 K/mm3 07/05/17 Unknown WBC Morphology Not Reportable 07/05/17 Unknown Hypersegmented Neuts Not Reportable 07/05/17 Unknown Hyposegmented Neuts Not Reportable 07/05/17 Unknown Hypogranular Neuts Not Reportable 07/05/17 Unknown Smudge Cells Not Reportable 07/05/17 Unknown Toxic Granulation Not Reportable 07/05/17 Unknown Toxic Vacuolation Not Reportable 07/05/17 Unknown Dohle Bodies Not Reportable 07/05/17 Unknown Pelger-Huet Anomaly Not Reportable 07/05/17 Unknown Juana Rods Not Reportable 07/05/17 Unknown Platelet Estimate Appears decreased 07/05/17 Unknown Clumped Platelets Not Reportable 07/05/17 Unknown Plt Clumps, EDTA Not Reportable 07/05/17 Unknown Large Platelets Not Reportable 07/05/17 Unknown Giant Platelets Not Reportable 07/05/17 Unknown Platelet Satelliting Not Reportable 07/05/17 Unknown Plt Morphology Comment Not Reportable 07/05/17 Unknown RBC Morphology Not Reportable 07/05/17 Unknown Dimorphic RBCs Not Reportable 07/05/17 Unknown Polychromasia Not Reportable 07/05/17 Unknown Hypochromasia Not Reportable 07/05/17 Unknown Poikilocytosis 1+ 07/05/17 Unknown Anisocytosis 1+ 07/05/17 Unknown Microcytosis Few 07/05/17 Unknown Macrocytosis Not Reportable 07/05/17 Unknown Spherocytes Not Reportable 07/05/17 Unknown Pappenheimer Bodies Not Reportable 07/05/17 Unknown Sickle Cells Not Reportable 07/05/17 Unknown Target Cells Not Reportable 07/05/17 Unknown Tear Drop Cells Not Reportable 07/05/17 Unknown Ovalocytes Not Reportable 07/05/17 Unknown Helmet Cells Not Reportable 07/05/17 Unknown [place] Bodies Not Reportable 07/05/17 Unknown Roscoe Rings Not Reportable 07/05/17 Unknown Bianca Cells Not Reportable 07/05/17 Unknown Bite Cells Not Reportable 07/05/17 Unknown Crenated Cell Not Reportable 07/05/17 Unknown Elliptocytes Not Reportable 07/05/17 Unknown Acanthocytes (Spur) Not Reportable 07/05/17 Unknown Rouleaux Not Reportable 07/05/17 Unknown Hemoglobin C Crystals Not Reportable 07/05/17 Unknown Schistocytes Not Reportable 07/05/17 Unknown Malaria parasites Not Reportable 07/05/17 Unknown Morales Bodies Not Reportable 07/05/17 Unknown Hem Pathologist Commnt No 07/05/17 Unknown PT 12.9 Sec. (12.2-14.9) 07/06/17 08:30 INR 0.93 (0.87-1.13) 07/06/17 08:30 POC ABG pH 7.441 (7.35-7.45) 07/06/17 04:19 POC ABG pCO2 34.3 (35-45) L 07/06/17 04:19 POC ABG pO2 104 (80-105) 07/06/17 04:19 POC ABG HCO3 23.3 07/06/17 04:19 POC ABG Total CO2 24 07/06/17 04:19 POC ABG O2 Sat 98 07/06/17 04:19 POC ABG Base Excess -1 07/06/17 04:19 FiO2 30 % 07/06/17 04:19 Sodium 138 mmol/L (137-145) 07/06/17 03:25 Potassium 3.3 mmol/L (3.6-5.0) L 07/06/17 03:25 Chloride 98.5 mmol/L (98-107) 07/06/17 03:25 Carbon Dioxide 24 mmol/L (22-30) 07/06/17 03:25 Anion Gap 19 mmol/L 07/06/17 03:25 BUN 44 mg/dL (9-20) H 07/06/17 03:25 Creatinine 3.6 mg/dL (0.8-1.5) H 07/06/17 03:25 Estimated GFR 20 ml/min 07/06/17 03:25 BUN/Creatinine Ratio 12 % 07/06/17 03:25 Glucose 132 mg/dL (75-100) H 07/06/17 03:25 POC Glucose 174 (70-105) H 07/06/17 05:24 Osmolality 357 Mosm/kg 07/02/17 15:35 Lactic Acid 2.30 mmol/L (0.7-2.0) H* 07/05/17 Unknown Calcium 7.4 mg/dL (8.4-10.2) L 07/06/17 03:25 Phosphorus 3.80 mg/dL (2.5-4.5) 07/04/17 14:10 Magnesium 1.80 mg/dL (1.7-2.3) 07/04/17 14:10 Total Bilirubin 0.40 mg/dL (0.1-1.2) 07/02/17 Unknown AST 31 units/L (5-40) 07/02/17 Unknown ALT 23 units/L (7-56) 07/02/17 Unknown Alkaline Phosphatase 139 units/L (35-129) H 07/02/17 Unknown Lactate Dehydrogenase 880 units/L (91-180) H 07/06/17 08:30 Total Creatine Kinase 58 units/L (55-170) 07/05/17 12:40 CK-MB (CK-2) 1.8 ng/mL (0.0-4.0) 07/05/17 12:40 CK-MB (CK-2) Rel Index 3.1 (0-4) 07/05/17 12:40 Troponin T 0.277 ng/mL (0.00-0.029) H* 07/05/17 12:40 C-Reactive Protein 9.90 mg/dL (0.00-1.30) H 07/05/17 Unknown Total Protein 4.9 g/dL (6.3-8.2) L 07/06/17 08:30 Albumin 3.3 g/dL (3.9-5) L 07/02/17 Unknown Albumin/Globulin Ratio 1.2 % 07/02/17 Unknown Triglycerides 83 mg/dL (2-149) 07/04/17 14:10 Cholesterol 83 mg/dL (50-199) 07/04/17 14:10 LDL Cholesterol Direct 22 mg/dL (50-130) L 07/04/17 14:10 HDL Cholesterol 45 mg/dL (40-59) 07/04/17 14:10 Cholesterol/HDL Ratio 1.84 % 07/04/17 14:10 TSH 3.200 mlU/mL (0.270-4.200) 07/02/17 Unknown Urine Color Yellow (Yellow) 07/02/17 17:25 Urine Turbidity Clear (Clear) 07/02/17 17:25 Urine pH 5.0 (5.0-7.0) 07/02/17 17:25 Ur Specific [place] 1.018 (1.003-1.030) 07/02/17 17:25 Urine Protein 100 mg/dl mg/dL (Negative) 07/02/17 17:25 Urine Glucose (UA) >=500 mg/dL (Negative) 07/02/17 17:25 Urine Ketones Neg mg/dL (Negative) 07/02/17 17:25 Urine Blood Sm (Negative) 07/02/17 17:25 Urine Nitrite Neg (Negative) 07/02/17 17:25 Urine Bilirubin Neg (Negative) 07/02/17 17:25 Urine Urobilinogen < 2.0 mg/dL (<2.0) 07/02/17 17:25 Ur Leukocyte Esterase Neg (Negative) 07/02/17 17:25 Urine WBC (Auto) 1.0 /HPF (0.0-6.0) 07/02/17 17:25 Urine RBC (Auto) 2.0 /HPF (0.0-6.0) 07/02/17 17:25 U Epithel Cells (Auto) 1.0 /HPF (0-13.0) 07/02/17 17:25 Salicylates < 0.3 mg/dL (2.8-20.0) L 07/02/17 Unknown Urine Opiates Screen Presumptive negative 07/02/17 17:25 Urine Methadone Screen Presumptive negative 07/02/17 17:25 Acetaminophen < 15.0 ug/mL (10.0-30.0) 07/02/17 Unknown Ur Barbiturates Screen Presumptive negative 07/02/17 17:25 Ur Phencyclidine Scrn Presumptive negative 07/02/17 17:25 Ur Amphetamines Screen Presumptive negative 07/02/17 17:25 U Benzodiazepines Scrn Presumptive negative 07/02/17 17:25 Urine Cocaine Screen Presumptive negative 07/02/17 17:25 U Marijuana (THC) Screen Presumptive negative 07/02/17 17:25 Drugs of Abuse Note Disclamer 07/02/17 17:25 Plasma/Serum Alcohol < 0.01 gm% (0-0.07) 07/02/17 Unknown
--- NOTE | 2017-07-06 12:52 | Progress Note ---
Assessment and Plan Impression: * End stage renal disease on HD * Cardiac arrest * Acute hypoxic respiratory failure on mechanical ventilation * Seizure disorder, new onset * Sepsis * DM s/p DKA Plan: * Hemodialysis MWF schedule * UF as tolerated. Ca bath adjusted * Vent management per Pulm/CCM * Empiric abx * Neuro work up in progress * Adjust medications for renal function Subjective Date of service: 07/06/17 Principal diagnosis: Acute Hypoxemic Resp Failure; S/P Cardiac Arrest; Hyperosmolar Non-ketotic Interval history: resting in bed today Objective - Exam Narrative Exam: General appearance: intubated EENT: ATNC, other (ETT in place) Respiratory: Present: Other (coarse breath sounds) Cardiology: regular, S1S2 Gastrointestinal: no tenderness, no distended Integumentary: no rash Neurologic: other (does not respond to tactile/verbal stimuli) Musculoskeletal: prevertebral tenderness, other (no edema) - Vital Signs Vital signs: Vital Signs - 12hr 07/06/17 07/06/17 07/06/17 01:00 01:15 01:30 Temperature Pulse Rate 97 H 95 H 96 H Pulse Rate [ Anterior Bilateral Throughout] Pulse Rate [ 90 From Monitor] Respiratory 12 12 13 Rate Respiratory Rate [Anterior Bilateral Throughout] Blood Pressure 148/74 154/78 154/75 O2 Sat by Pulse 100 100 100 Oximetry 07/06/17 07/06/17 07/06/17 01:45 02:00 02:15 Temperature Pulse Rate 92 H 91 H 92 H Pulse Rate [ Anterior Bilateral Throughout] Pulse Rate [ From Monitor] Respiratory 13 12 12 Rate Respiratory Rate [Anterior Bilateral Throughout] Blood Pressure 157/85 163/81 164/83 O2 Sat by Pulse 100 100 100 Oximetry 07/06/17 07/06/17 07/06/17 02:30 02:45 03:00 Temperature Pulse Rate 90 92 H 93 H Pulse Rate [ Anterior Bilateral Throughout] Pulse Rate [ From Monitor] Respiratory 12 12 12 Rate Respiratory Rate [Anterior Bilateral Throughout] Blood Pressure 161/79 152/80 145/82 O2 Sat by Pulse 100 100 100 Oximetry 07/06/17 07/06/17 07/06/17 03:15 03:26 03:31 Temperature Pulse Rate 92 H 93 H 93 H Pulse Rate [ Anterior Bilateral Throughout] Pulse Rate [ From Monitor] Respiratory 12 12 12 Rate Respiratory Rate [Anterior Bilateral Throughout] Blood Pressure 161/79 154/79 O2 Sat by Pulse 100 100 100 Oximetry 07/06/17 07/06/17 07/06/17 03:38 03:45 04:00 Temperature 98.8 F Pulse Rate 91 H 98 H Pulse Rate [ Anterior Bilateral Throughout] Pulse Rate [ From Monitor] Respiratory 11 L 13 Rate Respiratory Rate [Anterior Bilateral Throughout] Blood Pressure 162/82 168/88 O2 Sat by Pulse 100 100 Oximetry 07/06/17 07/06/17 07/06/17 04:15 04:30 04:45 Temperature Pulse Rate 94 H 96 H 95 H Pulse Rate [ Anterior Bilateral Throughout] Pulse Rate [ From Monitor] Respiratory 13 12 12 Rate Respiratory Rate [Anterior Bilateral Throughout] Blood Pressure 157/80 166/82 166/82 O2 Sat by Pulse 100 100 100 Oximetry 07/06/17 07/06/17 07/06/17 04:50 05:00 05:15 Temperature Pulse Rate 95 H 95 H 95 H Pulse Rate [ Anterior Bilateral Throughout] Pulse Rate [ From Monitor] Respiratory 11 L 12 Rate Respiratory Rate [Anterior Bilateral Throughout] Blood Pressure 171/84 169/82 O2 Sat by Pulse 100 100 100 Oximetry 07/06/17 07/06/17 07/06/17 05:30 05:45 06:00 Temperature Pulse Rate 95 H 91 H 95 H Pulse Rate [ Anterior Bilateral Throughout] Pulse Rate [ From Monitor] Respiratory 11 L 12 12 Rate Respiratory Rate [Anterior Bilateral Throughout] Blood Pressure 172/83 165/76 160/79 O2 Sat by Pulse 100 100 100 Oximetry 07/06/17 07/06/17 07/06/17 06:15 06:30 06:45 Temperature Pulse Rate 92 H 92 H 91 H Pulse Rate [ Anterior Bilateral Throughout] Pulse Rate [ From Monitor] Respiratory 12 12 12 Rate Respiratory Rate [Anterior Bilateral Throughout] Blood Pressure 165/77 164/81 167/81 O2 Sat by Pulse 100 100 100 Oximetry 07/06/17 07/06/17 07/06/17 07:00 07:15 07:30 Temperature Pulse Rate 92 H 93 H 92 H Pulse Rate [ Anterior Bilateral Throughout] Pulse Rate [ From Monitor] Respiratory 12 12 11 L Rate Respiratory Rate [Anterior Bilateral Throughout] Blood Pressure 167/81 166/81 169/85 O2 Sat by Pulse 100 100 100 Oximetry 07/06/17 07/06/17 07/06/17 07:45 08:00 08:15 Temperature 98.6 F Pulse Rate 97 H 91 H 93 H Pulse Rate [ Anterior Bilateral Throughout] Pulse Rate [ From Monitor] Respiratory 17 12 12 Rate Respiratory Rate [Anterior Bilateral Throughout] Blood Pressure 149/79 164/83 157/79 O2 Sat by Pulse 100 100 100 Oximetry 07/06/17 07/06/17 07/06/17 08:17 08:22 08:30 Temperature Pulse Rate 85 88 Pulse Rate [ 90 Anterior Bilateral Throughout] Pulse Rate [ From Monitor] Respiratory 11 L Rate Respiratory 12 Rate [Anterior Bilateral Throughout] Blood Pressure 157/79 159/79 O2 Sat by Pulse 100 100 Oximetry 07/06/17 07/06/17 07/06/17 08:38 08:45 09:00 Temperature Pulse Rate 99 H 95 H Pulse Rate [ 100 H Anterior Bilateral Throughout] Pulse Rate [ From Monitor] Respiratory 14 11 L Rate Respiratory 12 Rate [Anterior Bilateral Throughout] Blood Pressure 166/130 153/80 O2 Sat by Pulse 100 100 Oximetry 07/06/17 07/06/17 07/06/17 09:15 09:30 09:45 Temperature Pulse Rate 90 93 H 93 H Pulse Rate [ Anterior Bilateral Throughout] Pulse Rate [ From Monitor] Respiratory 12 12 12 Rate Respiratory Rate [Anterior Bilateral Throughout] Blood Pressure 153/80 150/79 157/85 O2 Sat by Pulse 100 100 100 Oximetry 07/06/17 07/06/17 07/06/17 09:46 10:00 10:15 Temperature Pulse Rate 93 H 94 H 91 H Pulse Rate [ Anterior Bilateral Throughout] Pulse Rate [ From Monitor] Respiratory 9 L 12 Rate Respiratory Rate [Anterior Bilateral Throughout] Blood Pressure 150/79 148/81 153/75 O2 Sat by Pulse 100 100 Oximetry 07/06/17 07/06/17 10:30 11:00 Temperature 97.4 F L Pulse Rate 93 H Pulse Rate [ Anterior Bilateral Throughout] Pulse Rate [ From Monitor] Respiratory 12 Rate Respiratory Rate [Anterior Bilateral Throughout] Blood Pressure 150/76 O2 Sat by Pulse 100 Oximetry - Lab 07/06/17 03:25 07/06/17 03:25 Most recent lab results Calcium 7.4 mg/dL (8.4-10.2) L 07/06/17 03:25 Phosphorus 3.80 mg/dL (2.5-4.5) 07/04/17 14:10 Magnesium 1.80 mg/dL (1.7-2.3) 07/04/17 14:10
--- NOTE | 2017-07-06 12:54 | Procedure Note ---
Date of procedure: 07/06/17 Pre-op diagnosis: rt.pleural effusion Post-op diagnosis: same Procedure: rt. thoracentesis Findings: straw colored fluid Anesthesia: local Surgeon: MARVIN BRIZUELA Estimated blood loss: none Pathology: list (pleural fluid) Condition: stable Disposition: floor
[2017-07-06] MEDS ORDERED: NACL 0.9% 100 ML IV PRN (12:55)
--- NOTE | 2017-07-06 13:01 | Ultrasound Report ---
Ultrasound guided thoracentesis: Upright imaging demonstrated a fluid collection in the right chest. The skin was marked on the posterior chest. The skin was cleansed and draped and 1% local anesthesia introduced. A small skin myron was made through which a 5 [place] Yueh catheter was placed successfully into the fluid pocket. A total of 1000 cc of straw-colored fluid was removed. Approximately 100 cc sent to lab. No complication identified.
--- NOTE | 2017-07-06 13:45 | XRay Report ---
Portable chest: Post right thoracentesis. Comparison is made to earlier exam at 1:30 AM. There is marked reduction in right pleural effusion with no significant residual identified. No pneumothorax and no infiltrate. The left lung remains clear. Multiple life-support tubes unchanged in good positions. Impression: Post right thoracentesis with no apparent palpitations.
[2017-07-06] MEDS: NORVASC PO SCH (13:49)
[2017-07-06] MEDS: HEPARIN IV PRN (17:51)
[2017-07-06] MEDS ORDERED: VANCOMYCIN/NS 1 GM/250 ML 1 GM/250 ML BAG IV ONE (20:00)
[2017-07-07 00:30] LABS: Basophils Body Fluid 0 %; Eosinophils Body Fluid 0 %; Lymphocytes BF 43.9 %; Monocytes Body Fluid 4.9 %; Reactive Lymph Body Fluid 0 %; Seg Neutrophils Body Fluid 51.2 %
--- NOTE | 2017-07-07 03:43 | XRay Report ---
FINAL REPORT EXAM: XR CHEST 1V AP HISTORY: follow up respiratory failure COMPARISON: July 02, 2017. FINDINGS: Frontal view(s) of the chest obtained. Heart upper limits normal in size. ETT is present. The distal tip appears to be at the level the ioana and could be retracted 3-4 centimeters. Dual lumen central venous right IJ catheter is in place. This is unchanged from earlier exam. Feeding tube is present. Distal tip not visualized but extends at least to the proximal stomach. Small right-sided pleural effusion appears slightly decreased from prior study. IMPRESSION: ETT is present. Distal tip appears to be at the level the ioana and could be retracted 3-4 centimeters. Small right-sided pleural effusions decreased in size from prior study.
[2017-07-07] MEDS: FLAGYL 500 MG/100 ML 500 MG/100 ML BAG IV SCH ×3 (05:10→21:58)
[2017-07-07 05:18] LABS: ISTAT Base Excess 3; ISTAT HCO3 27.3; ISTAT PCO2 38.9 (35-45); ISTAT PH 7.455 (7.35-7.45); ISTAT PO2 134 (80-105); ISTAT SO2 99; ISTAT TCO2 28
[2017-07-07] MEDS: NOVOLOG SUB-Q SCH ×3 (05:42→17:35)
[2017-07-07 05:52] LABS: Basophils % (Auto) 0.2 % (0.0-1.8); Eosinophils % (Auto) 1.1 % (0.0-4.3); Hematocrit 26.6 % (35.5-45.6); Hemoglobin 8.9 gm/dl (11.8-15.2); Mean Corpuscular HGB Conc 34 % (32-34); Mean Corpuscular Hemoglobin 30 pg (28-32); Mean Corpuscular Volume 89 fl (84-94); Platelet Count 106 K/mm3 (140-440); Red Cell Distribution Width 15.6 % (13.2-15.2); White Blood Count 16.1 K/mm3 (4.5-11.0)
[2017-07-07 06:13] LABS: Calcium 7.9 mg/dL (8.4-10.2); Chloride 102.5 mmol/L (98-107); Potassium 3.6 mmol/L (3.6-5.0)
[2017-07-07] MEDS: DUONEB *Not for PRN Use IH SCH ×3 (08:29→23:36)
[2017-07-07] MEDS: FOLVITE PO SCH (10:03)
[2017-07-07] MEDS: ASPIRIN PO SCH (10:44)
[2017-07-07] MEDS: COREG PO SCH ×2 (10:45→21:59)
[2017-07-07] MEDS: PEPCID PO SCH (10:45)
[2017-07-07] MEDS: NORVASC PO SCH (10:45)
[2017-07-07] MEDS: FERROUS SULFATE PO SCH ×2 (10:46→21:58)
[2017-07-07] MEDS: ROCALTROL PO SCH (10:47)
[2017-07-07] MEDS: MAXIPIME/NS 1 GM/100 ML 1 GM/100 ML BAG IV SCH (10:47)
[2017-07-07] MEDS: THERAGRAN-M Tab PO SCH (10:49)
[2017-07-07] MEDS: LEVEMIR SUB-Q SCH (10:50)
--- NOTE | 2017-07-07 11:55 | Progress Note ---
Assessment and Plan Acute Hypoxemic Respiratory Failure on MVS Seizure Disorder s/p Cardiac Arrest ESRD on Dialysis Sepsis Syndrome Hyperosmolar non ketotic state Anemia Leucocytosis Acute Encephalopathy Thrombocytopenia - pulled ETT back 3 cm - AMS will likely be a rate limiting factor to extubation - continue prn hydralazine and resumed home amlodipine dose (10mg qd) and coreg - keep set rate at 12/min - continue daily PSV trials as tolerated - continue aspiration precautions / addressing VAP bundle daily - continue to wean FiO2 for sats > 94% - continue enteral nutrition as tolerated - continue bronchodilators and pulmonary toilet - continue and adjust AB's per ID recs - continue glycemic control with SSI and levemir (target BG <180mg/dl) - continue GI & VTE prophylaxis - Continue to monitor platelet count while on heparin - continue other care per attending / other consultants - flu and pneumovax addressed per protocol ....30' CCT without overlap Subjective Date of service: 07/07/17 Principal diagnosis: Acute Hypoxemic Resp Failure; S/P Cardiac Arrest; Hyperosmolar Non-ketotic Interval history: Patient is seen today for: Acute Hypoxemic Resp Failure; S/P Cardiac Arrest; Hyperosmolar Non-ketotic Seen and examined at bedside; 24hour events reviewed; nursing and respiratory care staff consulted; no adverse overnight events reported to me; remains on MVS ; s/p thoracentesis yesterday (results pending but was neutrophil predominant); AMS is persistent and likely multifactorial; no emesis or overt aspiration; no gross bleeding Objective Vital Signs - 12hr 07/07/17 07/07/17 07/07/17 00:00 00:16 00:30 Temperature Pulse Rate 96 H 91 H 90 Pulse Rate [ Anterior Bilateral Throughout] Respiratory 11 L 11 L 12 Rate Respiratory Rate [Anterior Bilateral Throughout] Blood Pressure 135/70 134/66 137/68 O2 Sat by Pulse 99 100 99 Oximetry 07/07/17 07/07/17 07/07/17 00:46 01:00 01:16 Temperature Pulse Rate 89 91 H 91 H Pulse Rate [ Anterior Bilateral Throughout] Respiratory 12 13 11 L Rate Respiratory Rate [Anterior Bilateral Throughout] Blood Pressure 136/63 140/69 141/66 O2 Sat by Pulse 100 99 100 Oximetry 07/07/17 07/07/17 07/07/17 01:30 01:46 02:00 Temperature Pulse Rate 90 92 H 92 H Pulse Rate [ Anterior Bilateral Throughout] Respiratory 12 12 12 Rate Respiratory Rate [Anterior Bilateral Throughout] Blood Pressure 140/66 138/67 140/70 O2 Sat by Pulse 99 100 100 Oximetry 07/07/17 07/07/17 07/07/17 02:16 02:30 02:35 Temperature Pulse Rate 92 H 97 H 97 H Pulse Rate [ Anterior Bilateral Throughout] Respiratory 10 L 11 L Rate Respiratory Rate [Anterior Bilateral Throughout] Blood Pressure 140/67 147/75 O2 Sat by Pulse 100 100 100 Oximetry 07/07/17 07/07/17 07/07/17 02:46 03:00 03:16 Temperature Pulse Rate 90 90 90 Pulse Rate [ Anterior Bilateral Throughout] Respiratory 12 12 12 Rate Respiratory Rate [Anterior Bilateral Throughout] Blood Pressure 144/67 141/70 145/69 O2 Sat by Pulse 100 100 100 Oximetry 07/07/17 07/07/17 07/07/17 03:30 03:46 04:00 Temperature Pulse Rate 90 88 86 Pulse Rate [ Anterior Bilateral Throughout] Respiratory 12 12 12 Rate Respiratory Rate [Anterior Bilateral Throughout] Blood Pressure 147/71 143/68 150/71 O2 Sat by Pulse 100 100 100 Oximetry 07/07/17 07/07/17 07/07/17 04:10 04:16 04:30 Temperature Pulse Rate 89 90 Pulse Rate [ Anterior Bilateral Throughout] Respiratory 12 12 12 Rate Respiratory Rate [Anterior Bilateral Throughout] Blood Pressure 151/71 144/70 O2 Sat by Pulse 100 100 100 Oximetry 07/07/17 07/07/17 07/07/17 04:33 04:46 05:00 Temperature Pulse Rate 90 91 H 89 Pulse Rate [ Anterior Bilateral Throughout] Respiratory 12 11 L Rate Respiratory Rate [Anterior Bilateral Throughout] Blood Pressure 144/70 151/71 145/74 O2 Sat by Pulse 100 100 100 Oximetry 07/07/17 07/07/17 07/07/17 05:16 05:17 05:30 Temperature 98.4 F Pulse Rate 93 H 89 Pulse Rate [ Anterior Bilateral Throughout] Respiratory 12 12 12 Rate Respiratory Rate [Anterior Bilateral Throughout] Blood Pressure 144/68 152/73 O2 Sat by Pulse 100 100 100 Oximetry 07/07/17 07/07/17 07/07/17 05:46 06:00 06:16 Temperature Pulse Rate 88 88 88 Pulse Rate [ Anterior Bilateral Throughout] Respiratory 12 12 12 Rate Respiratory Rate [Anterior Bilateral Throughout] Blood Pressure 149/72 149/69 150/70 O2 Sat by Pulse 100 100 100 Oximetry 07/07/17 07/07/17 07/07/17 07:50 08:00 08:10 Temperature 99.0 F Pulse Rate 88 Pulse Rate [ 89 91 H Anterior Bilateral Throughout] Respiratory Rate Respiratory 12 14 Rate [Anterior Bilateral Throughout] Blood Pressure 139/67 O2 Sat by Pulse 100 Oximetry 07/07/17 07/07/17 10:45 11:49 Temperature 98.7 F Pulse Rate 91 H Pulse Rate [ Anterior Bilateral Throughout] Respiratory Rate Respiratory Rate [Anterior Bilateral Throughout] Blood Pressure 141/72 O2 Sat by Pulse Oximetry Constitutional: no acute distress, other (encephalopathic) Eyes: non-icteric ENT: oropharynx moist, other (ETT at 25cm TIKI) Neck: supple, no lymphadenopathy, JVD, other (no thyromegally) Effort: mildly labored Ascultation: Bilateral: rales Percussion: Bilateral: not dull Cardiovascular: regular rate and rhythm, other (no rubs / murmurs) Gastrointestinal: normoactive bowel sounds, soft, non-tender, non-distended, other (no HSM) Integumentary: normal Extremities: no cyanosis, no edema, pulses normal, no ischemia or petechiae Neurologic: pupils equal and round, unable to assess, other (no spontaneous limb movements) Psychiatric: other (unable to assess) CBC and BMP: 07/07/17 05:00 07/07/17 05:00 ABG, PT/INR, D-dimer: ABG POC ABG pH 7.455 (7.35-7.45) H 07/07/17 04:38 POC ABG pCO2 38.9 (35-45) 07/07/17 04:38 POC ABG pO2 134 (80-105) H 07/07/17 04:38 POC ABG HCO3 27.3 07/07/17 04:38 POC ABG Total CO2 28 07/07/17 04:38 POC ABG O2 Sat 99 07/07/17 04:38 PT/INR, D-dimer PT 12.9 Sec. (12.2-14.9) 07/06/17 08:30 INR 0.93 (0.87-1.13) 07/06/17 08:30 Abnormal lab findings: Abnormal Labs 07/02/17 07/02/17 07/02/17 15:03 15:12 17:49 WBC 13.5 H RBC 3.47 L Hgb 9.9 L Hct 33.1 L MCV 96 H MCHC 30 L RDW 15.4 H Plt Count 130 L Lymph % (Auto) [place] % (Auto) Lymph # [place] # Seg Neutrophils % Seg Neuts % (Manual) 95.0 H Lymphocytes % (Manual) 3.0 L Seg Neutrophils # Seg Neutrophils # Man 12.8 H Lymphocytes # (Manual) 0.4 L POC ABG pH POC ABG pCO2 POC ABG pO2 Sodium Potassium Chloride Carbon Dioxide BUN Creatinine Glucose POC Glucose > 500 H Lactic Acid 7.80 H* Calcium Ionized Calcium Alkaline Phosphatase Lactate Dehydrogenase CK-MB (CK-2) Troponin T C-Reactive Protein Total Protein Albumin LDL Cholesterol Direct Salicylates 07/02/17 07/02/17 07/02/17 20:29 21:31 23:38 WBC RBC Hgb Hct MCV MCHC RDW Plt Count Lymph % (Auto) [place] % (Auto) Lymph # [place] # Seg Neutrophils % Seg Neuts % (Manual) Lymphocytes % (Manual) Seg Neutrophils # Seg Neutrophils # Man Lymphocytes # (Manual) POC ABG pH POC ABG pCO2 POC ABG pO2 Sodium 129 L 132 L Potassium Chloride 87.2 L 93.7 L Carbon Dioxide 18 L 15 L BUN 51 H 47 H Creatinine 4.3 H 4.1 H Glucose 950 H* 825 H* POC Glucose Lactic Acid 5.70 H* Calcium 7.1 L 6.8 L Ionized Calcium Alkaline Phosphatase Lactate Dehydrogenase CK-MB (CK-2) Troponin T C-Reactive Protein Total Protein Albumin LDL Cholesterol Direct Salicylates 07/02/17 07/02/17 07/02/17 23:38 23:44 Unknown WBC RBC Hgb Hct MCV MCHC RDW Plt Count Lymph % (Auto) [place] % (Auto) Lymph # [place] # Seg Neutrophils % Seg Neuts % (Manual) Lymphocytes % (Manual) Seg Neutrophils # Seg Neutrophils # Man Lymphocytes # (Manual) POC ABG pH POC ABG pCO2 POC ABG pO2 Sodium 132 L 125 L D Potassium Chloride 94.6 L 85.6 L Carbon Dioxide 17 L 19 L D BUN 51 H 50 H Creatinine 4.1 H 4.4 H D Glucose 772 H* 1113 H* POC Glucose > 500 H Lactic Acid Calcium 6.7 L 7.2 L Ionized Calcium Alkaline Phosphatase 139 H Lactate Dehydrogenase CK-MB (CK-2) Troponin T C-Reactive Protein Total Protein 6.1 L Albumin 3.3 L LDL Cholesterol Direct Salicylates 07/02/17 07/02/17 07/03/17 Unknown Unknown 01:00 WBC RBC Hgb Hct MCV MCHC RDW Plt Count Lymph % (Auto) [place] % (Auto) Lymph # [place] # Seg Neutrophils % Seg Neuts % (Manual) Lymphocytes % (Manual) Seg Neutrophils # Seg Neutrophils # Man Lymphocytes # (Manual) POC ABG pH POC ABG pCO2 POC ABG pO2 Sodium 134 L Potassium Chloride 96.4 L Carbon Dioxide 19 L BUN 50 H Creatinine 4.0 H Glucose 677 H* POC Glucose Lactic Acid 6.30 H* Calcium 6.6 L Ionized Calcium Alkaline Phosphatase Lactate Dehydrogenase CK-MB (CK-2) Troponin T C-Reactive Protein Total Protein Albumin LDL Cholesterol Direct Salicylates < 0.3 L 07/03/17 07/03/17 07/03/17 01:04 02:15 02:15 WBC RBC Hgb Hct MCV MCHC RDW Plt Count Lymph % (Auto) [place] % (Auto) Lymph # [place] # Seg Neutrophils % Seg Neuts % (Manual) Lymphocytes % (Manual) Seg Neutrophils # Seg Neutrophils # Man Lymphocytes # (Manual) POC ABG pH POC ABG pCO2 POC ABG pO2 Sodium 134 L Potassium Chloride 97.6 L Carbon Dioxide 19 L BUN 50 H Creatinine 4.2 H Glucose 592 H* POC Glucose > 500 H Lactic Acid 4.30 H* Calcium 6.6 L Ionized Calcium Alkaline Phosphatase Lactate Dehydrogenase CK-MB (CK-2) Troponin T C-Reactive Protein Total Protein Albumin LDL Cholesterol Direct Salicylates 07/03/17 07/03/17 07/03/17 02:21 03:25 04:10 WBC RBC Hgb Hct MCV MCHC RDW Plt Count Lymph % (Auto) [place] % (Auto) Lymph # [place] # Seg Neutrophils % Seg Neuts % (Manual) Lymphocytes % (Manual) Seg Neutrophils # Seg Neutrophils # Man Lymphocytes # (Manual) POC ABG pH POC ABG pCO2 POC ABG pO2 Sodium Potassium Chloride Carbon Dioxide 19 L BUN 50 H Creatinine 4.0 H Glucose 416 H POC Glucose 482 H > 500 H Lactic Acid Calcium 6.8 L Ionized Calcium Alkaline Phosphatase Lactate Dehydrogenase CK-MB (CK-2) Troponin T C-Reactive Protein Total Protein Albumin LDL Cholesterol Direct Salicylates 07/03/17 07/03/17 07/03/17 04:30 04:36 05:33 WBC RBC Hgb Hct MCV MCHC RDW Plt Count Lymph % (Auto) [place] % (Auto) Lymph # [place] # Seg Neutrophils % Seg Neuts % (Manual) Lymphocytes % (Manual) Seg Neutrophils # Seg Neutrophils # Man Lymphocytes # (Manual) POC ABG pH 7.311 L POC ABG pCO2 33.5 L POC ABG pO2 73 L Sodium Potassium Chloride Carbon Dioxide BUN Creatinine Glucose POC Glucose 389 H 326 H Lactic Acid Calcium Ionized Calcium Alkaline Phosphatase Lactate Dehydrogenase CK-MB (CK-2) Troponin T C-Reactive Protein Total Protein Albumin LDL Cholesterol Direct Salicylates 07/03/17 07/03/17 07/03/17 06:06 07:38 09:58 WBC RBC Hgb Hct MCV MCHC RDW Plt Count Lymph % (Auto) [place] % (Auto) Lymph # [place] # Seg Neutrophils % Seg Neuts % (Manual) Lymphocytes % (Manual) Seg Neutrophils # Seg Neutrophils # Man Lymphocytes # (Manual) POC ABG pH POC ABG pCO2 POC ABG pO2 Sodium Potassium Chloride Carbon Dioxide BUN Creatinine Glucose POC Glucose 247 H 118 H 52 L Lactic Acid Calcium Ionized Calcium Alkaline Phosphatase Lactate Dehydrogenase CK-MB (CK-2) Troponin T C-Reactive Protein Total Protein Albumin LDL Cholesterol Direct Salicylates 07/03/17 07/03/17 07/03/17 11:00 13:16 15:02 WBC RBC Hgb Hct MCV MCHC RDW Plt Count Lymph % (Auto) [place] % (Auto) Lymph # [place] # Seg Neutrophils % Seg Neuts % (Manual) Lymphocytes % (Manual) Seg Neutrophils # Seg Neutrophils # Man Lymphocytes # (Manual) POC ABG pH POC ABG pCO2 POC ABG pO2 Sodium Potassium Chloride Carbon Dioxide BUN Creatinine Glucose POC Glucose 64 L 112 H 158 H Lactic Acid Calcium Ionized Calcium Alkaline Phosphatase Lactate Dehydrogenase CK-MB (CK-2) Troponin T C-Reactive Protein Total Protein Albumin LDL Cholesterol Direct Salicylates 07/03/17 07/03/17 07/03/17 18:17 Unknown Unknown WBC RBC Hgb Hct MCV MCHC RDW Plt Count Lymph % (Auto) [place] % (Auto) Lymph # [place] # Seg Neutrophils % Seg Neuts % (Manual) Lymphocytes % (Manual) Seg Neutrophils # Seg Neutrophils # Man Lymphocytes # (Manual) POC ABG pH POC ABG pCO2 POC ABG pO2 Sodium Potassium Chloride Carbon Dioxide BUN Creatinine Glucose POC Glucose 131 H Lactic Acid 2.40 H* Calcium Ionized Calcium Alkaline Phosphatase Lactate Dehydrogenase CK-MB (CK-2) Troponin T C-Reactive Protein 1.90 H Total Protein Albumin LDL Cholesterol Direct Salicylates 07/03/17 07/04/17 07/04/17 Unknown 00:13 02:04 WBC RBC Hgb Hct MCV MCHC RDW Plt Count Lymph % (Auto) [place] % (Auto) Lymph # [place] # Seg Neutrophils % Seg Neuts % (Manual) Lymphocytes % (Manual) Seg Neutrophils # Seg Neutrophils # Man Lymphocytes # (Manual) POC ABG pH POC ABG pCO2 POC ABG pO2 Sodium Potassium Chloride Carbon Dioxide BUN 52 H Creatinine 4.3 H Glucose POC Glucose 69 L 111 H Lactic Acid Calcium 7.2 L Ionized Calcium Alkaline Phosphatase Lactate Dehydrogenase CK-MB (CK-2) Troponin T C-Reactive Protein Total Protein Albumin LDL Cholesterol Direct Salicylates 07/04/17 07/04/17 07/04/17 04:38 08:00 08:00 WBC 28.3 H RBC 3.55 L Hgb 10.3 L Hct 31.2 L MCV MCHC RDW 15.3 H Plt Count 101 L Lymph % (Auto) [place] % (Auto) Lymph # [place] # Seg Neutrophils % Seg Neuts % (Manual) Lymphocytes % (Manual) Seg Neutrophils # Seg Neutrophils # Man Lymphocytes # (Manual) POC ABG pH POC ABG pCO2 27.6 L POC ABG pO2 Sodium Potassium Chloride Carbon Dioxide 20 L BUN 62 H Creatinine 4.7 H Glucose POC Glucose Lactic Acid Calcium 7.0 L Ionized Calcium Alkaline Phosphatase Lactate Dehydrogenase CK-MB (CK-2) Troponin T C-Reactive Protein Total Protein Albumin LDL Cholesterol Direct Salicylates 07/04/17 07/04/17 07/04/17 14:10 14:10 14:33 WBC RBC Hgb Hct MCV MCHC RDW Plt Count Lymph % (Auto) [place] % (Auto) Lymph # [place] # Seg Neutrophils % Seg Neuts % (Manual) Lymphocytes % (Manual) Seg Neutrophils # Seg Neutrophils # Man Lymphocytes # (Manual) POC ABG pH 7.474 H POC ABG pCO2 29.4 L POC ABG pO2 Sodium Potassium Chloride Carbon Dioxide BUN Creatinine Glucose POC Glucose Lactic Acid Calcium Ionized Calcium 4.6 L Alkaline Phosphatase Lactate Dehydrogenase CK-MB (CK-2) 4.3 H Troponin T 0.282 H* C-Reactive Protein Total Protein Albumin LDL Cholesterol Direct 22 L Salicylates 07/04/17 07/04/17 07/04/17 17:26 20:40 23:34 WBC RBC Hgb Hct MCV MCHC RDW Plt Count Lymph % (Auto) [place] % (Auto) Lymph # [place] # Seg Neutrophils % Seg Neuts % (Manual) Lymphocytes % (Manual) Seg Neutrophils # Seg Neutrophils # Man Lymphocytes # (Manual) POC ABG pH POC ABG pCO2 POC ABG pO2 Sodium Potassium Chloride Carbon Dioxide BUN Creatinine Glucose POC Glucose 201 H 188 H Lactic Acid Calcium Ionized Calcium Alkaline Phosphatase Lactate Dehydrogenase CK-MB (CK-2) Troponin T 0.276 H* C-Reactive Protein Total Protein Albumin LDL Cholesterol Direct Salicylates 07/05/17 07/05/17 07/05/17 05:42 07:50 11:52 WBC RBC Hgb Hct MCV MCHC RDW Plt Count Lymph % (Auto) [place] % (Auto) Lymph # [place] # Seg Neutrophils % Seg Neuts % (Manual) Lymphocytes % (Manual) Seg Neutrophils # Seg Neutrophils # Man Lymphocytes # (Manual) POC ABG pH POC ABG pCO2 POC ABG pO2 117 H Sodium Potassium Chloride Carbon Dioxide BUN Creatinine Glucose POC Glucose 126 H 110 H Lactic Acid Calcium Ionized Calcium Alkaline Phosphatase Lactate Dehydrogenase CK-MB (CK-2) Troponin T C-Reactive Protein Total Protein Albumin LDL Cholesterol Direct Salicylates 07/05/17 07/05/17 07/05/17 12:40 17:51 18:12 WBC RBC Hgb Hct MCV MCHC RDW Plt Count Lymph % (Auto) [place] % (Auto) Lymph # [place] # Seg Neutrophils % Seg Neuts % (Manual) Lymphocytes % (Manual) Seg Neutrophils # Seg Neutrophils # Man Lymphocytes # (Manual) POC ABG pH POC ABG pCO2 POC ABG pO2 Sodium Potassium Chloride Carbon Dioxide BUN Creatinine Glucose POC Glucose 57 L 69 L Lactic Acid Calcium Ionized Calcium Alkaline Phosphatase Lactate Dehydrogenase CK-MB (CK-2) Troponin T 0.277 H* C-Reactive Protein Total Protein Albumin LDL Cholesterol Direct Salicylates 07/05/17 07/05/17 07/05/17 Unknown Unknown Unknown WBC 22.2 H RBC 3.24 L Hgb 9.7 L Hct 28.6 L MCV MCHC RDW Plt Count 89 L Lymph % (Auto) [place] % (Auto) Lymph # [place] # Seg Neutrophils % Seg Neuts % (Manual) 89.0 H Lymphocytes % (Manual) 7.0 L Seg Neutrophils # Seg Neutrophils # Man 19.8 H Lymphocytes # (Manual) POC ABG pH POC ABG pCO2 POC ABG pO2 Sodium Potassium 3.5 L Chloride Carbon Dioxide BUN 37 H Creatinine 3.1 H Glucose 120 H POC Glucose Lactic Acid 2.30 H* Calcium 7.7 L Ionized Calcium Alkaline Phosphatase Lactate Dehydrogenase CK-MB (CK-2) Troponin T C-Reactive Protein Total Protein Albumin LDL Cholesterol Direct Salicylates 07/05/17 07/06/17 07/06/17 Unknown 03:25 03:25 WBC 17.7 H RBC 3.14 L Hgb 9.3 L Hct 27.8 L MCV MCHC RDW 15.7 H Plt Count 82 L Lymph % (Auto) 2.5 L [place] % (Auto) Lymph # 0.4 L [place] # 1.1 H Seg Neutrophils % 90.0 H Seg Neuts % (Manual) Lymphocytes % (Manual) Seg Neutrophils # 15.9 H Seg Neutrophils # Man Lymphocytes # (Manual) POC ABG pH POC ABG pCO2 POC ABG pO2 Sodium Potassium 3.3 L Chloride Carbon Dioxide BUN 44 H Creatinine 3.6 H Glucose 132 H POC Glucose Lactic Acid Calcium 7.4 L Ionized Calcium Alkaline Phosphatase Lactate Dehydrogenase CK-MB (CK-2) Troponin T C-Reactive Protein 9.90 H Total Protein Albumin LDL Cholesterol Direct Salicylates 07/06/17 07/06/17 07/06/17 04:19 05:24 08:30 WBC RBC Hgb Hct MCV MCHC RDW Plt Count Lymph % (Auto) [place] % (Auto) Lymph # [place] # Seg Neutrophils % Seg Neuts % (Manual) Lymphocytes % (Manual) Seg Neutrophils # Seg Neutrophils # Man Lymphocytes # (Manual) POC ABG pH POC ABG pCO2 34.3 L POC ABG pO2 Sodium Potassium Chloride Carbon Dioxide BUN Creatinine Glucose POC Glucose 174 H Lactic Acid Calcium Ionized Calcium Alkaline Phosphatase Lactate Dehydrogenase 880 H CK-MB (CK-2) Troponin T C-Reactive Protein Total Protein 4.9 L Albumin LDL Cholesterol Direct Salicylates 07/06/17 07/06/17 07/06/17 11:13 17:14 23:38 WBC RBC Hgb Hct MCV MCHC RDW Plt Count Lymph % (Auto) [place] % (Auto) Lymph # [place] # Seg Neutrophils % Seg Neuts % (Manual) Lymphocytes % (Manual) Seg Neutrophils # Seg Neutrophils # Man Lymphocytes # (Manual) POC ABG pH POC ABG pCO2 POC ABG pO2 Sodium Potassium Chloride Carbon Dioxide BUN Creatinine Glucose POC Glucose 216 H 211 H 122 H Lactic Acid Calcium Ionized Calcium Alkaline Phosphatase Lactate Dehydrogenase CK-MB (CK-2) Troponin T C-Reactive Protein Total Protein Albumin LDL Cholesterol Direct Salicylates 07/07/17 07/07/17 07/07/17 04:38 05:00 05:00 WBC 16.1 H RBC 3.00 L Hgb 8.9 L Hct 26.6 L MCV MCHC RDW 15.6 H Plt Count 106 L Lymph % (Auto) 4.1 L [place] % (Auto) 8.0 H Lymph # 0.7 L [place] # 1.3 H Seg Neutrophils % 86.6 H Seg Neuts % (Manual) Lymphocytes % (Manual) Seg Neutrophils # 13.9 H Seg Neutrophils # Man Lymphocytes # (Manual) POC ABG pH 7.455 H POC ABG pCO2 POC ABG pO2 134 H Sodium Potassium Chloride Carbon Dioxide BUN 30 H Creatinine 2.8 H Glucose 188 H POC Glucose Lactic Acid Calcium 7.9 L Ionized Calcium Alkaline Phosphatase Lactate Dehydrogenase CK-MB (CK-2) Troponin T C-Reactive Protein Total Protein Albumin LDL Cholesterol Direct Salicylates 07/07/17 07/07/17 05:17 11:33 WBC RBC Hgb Hct MCV MCHC RDW Plt Count Lymph % (Auto) [place] % (Auto) Lymph # [place] # Seg Neutrophils % Seg Neuts % (Manual) Lymphocytes % (Manual) Seg Neutrophils # Seg Neutrophils # Man Lymphocytes # (Manual) POC ABG pH POC ABG pCO2 POC ABG pO2 Sodium Potassium Chloride Carbon Dioxide BUN Creatinine Glucose POC Glucose 189 H 275 H Lactic Acid Calcium Ionized Calcium Alkaline Phosphatase Lactate Dehydrogenase CK-MB (CK-2) Troponin T C-Reactive Protein Total Protein Albumin LDL Cholesterol Direct Salicylates Chest x-ray: image reviewed (improved pleural effusions; ETT at [place]; no pneumothorax) Allied health notes reviewed: nursing
--- NOTE | 2017-07-07 12:32 | Progress Note ---
Assessment and Plan Assessment and plan: Acute respiratory failure Continue mechanical ventilation per pulmonary. Continue bronchodilation and pulmonary toileting DKA (diabetic ketoacidoses) Resolved. Discontinued Insulin drip protocol. Continue IVF resuscitation. Continue long-acting insulin regimen. Cardiac arrest Cardiology following Sepsis Leukocytosis is improving. Blood cultures thus far negative. Consider ID consultation if patient does not continue to improve. Continue empiric antibiotics of vancomycin and Zosyn. NSTEMI type II Etiology secondary to sepsis. Pleural effusion Patient status post ultrasound-guided thoracentesis with 1 L removed Lactic acid acidosis Secondary to DKA, sepsis and Cardiac arrest, IVF resuscitation, treated DKA, repeat lactic acid level Metabolic encephalopathy Secondary to DKA complicated by cardiac arrest, supportive care, neuro checks. Anoxic brain damage S/P Cardiac arrest. Neurology following. Check EEG. Seizure disorder Neurology consultation pending. Follow-up EEG. Vomiting Etiology, may be secondary to obstruction. Check KUB. Continue NGT to suction DVT prophylaxis Anemia/ Melena GI consultation to rule out bleeding. Consider abdominal CT were medically stable. The high probability of a clinically significant, sudden or life threatening deterioration of the [respiratory, cardiac and neurological] system(s) required my full and direct attention, intervention and personal management. The aggregate critical care time was [32] minutes. This time is in addition to time spent performing reported procedures but includes the following: [x] Data Review and interpretation [x] Patient assessment and monitoring of vital signs [x] Documentation [x] Medication orders and management History Interval history: Patient is intubated on mechanical ventilation. Hospitalist Physical - Constitutional Vitals: Temp Pulse Resp BP Pulse Ox 98.7 F 79 14 118/57 100 07/07/17 11:49 07/07/17 12:00 07/07/17 08:10 07/07/17 12:00 07/07/17 12:00 General appearance: Present: other (intubated, unresponsive) - EENT Eyes: Present: PERRL, EOM intact ENT: hearing intact, clear oral mucosa, dentition normal - Neck Neck: Present: supple, normal ROM - Respiratory Respiratory effort: normal Respiratory: bilateral: CTA - Cardiovascular Rhythm: regular Heart Sounds: Present: S1 & S2. Absent: gallop, rub - Extremities Extremities: no ischemia, No edema, Full ROM - Abdominal General gastrointestinal: soft, non-tender, non-distended, normal bowel sounds - Integumentary Integumentary: Present: clear, warm, dry - Neurologic Neurologic: CNII-XII intact, moves all extremities Results - Labs CBC & Chem 7: 07/07/17 05:00 07/07/17 05:00 Labs: Laboratory Last Values WBC 16.1 K/mm3 (4.5-11.0) H 07/07/17 05:00 RBC 3.00 M/mm3 (3.65-5.03) L 07/07/17 05:00 Hgb 8.9 gm/dl (11.8-15.2) L 07/07/17 05:00 Hct 26.6 % (35.5-45.6) L 07/07/17 05:00 MCV 89 fl (84-94) 07/07/17 05:00 MCH 30 pg (28-32) 07/07/17 05:00 MCHC 34 % (32-34) 07/07/17 05:00 RDW 15.6 % (13.2-15.2) H 07/07/17 05:00 Plt Count 106 K/mm3 (140-440) L 07/07/17 05:00 Lymph % (Auto) 4.1 % (13.4-35.0) L 07/07/17 05:00 [place] % (Auto) 8.0 % (0.0-7.3) H 07/07/17 05:00 Eos % (Auto) 1.1 % (0.0-4.3) 07/07/17 05:00 Baso % (Auto) 0.2 % (0.0-1.8) 07/07/17 05:00 Lymph # 0.7 K/mm3 (1.2-5.4) L 07/07/17 05:00 [place] # 1.3 K/mm3 (0.0-0.8) H 07/07/17 05:00 Eos # 0.2 K/mm3 (0.0-0.4) 07/07/17 05:00 Baso # 0.0 K/mm3 (0.0-0.1) 07/07/17 05:00 Add Manual Diff Complete 07/05/17 Unknown Total Counted 100 07/05/17 Unknown Seg Neutrophils % 86.6 % (40.0-70.0) H 07/07/17 05:00 Seg Neuts % (Manual) 89.0 % (40.0-70.0) H 07/05/17 Unknown Band Neutrophils % 1.0 % 07/05/17 Unknown Lymphocytes % (Manual) 7.0 % (13.4-35.0) L 07/05/17 Unknown Reactive Lymphs % (Man) 0 % 07/05/17 Unknown Monocytes % (Manual) 3.0 % (0.0-7.3) 07/05/17 Unknown Eosinophils % (Manual) 0 % (0.0-4.3) 07/05/17 Unknown Basophils % (Manual) 0 % (0.0-1.8) 07/05/17 Unknown Metamyelocytes % 0 % 07/05/17 Unknown Myelocytes % 0 % 07/05/17 Unknown Promyelocytes % 0 % 07/05/17 Unknown Blast Cells % 0 % 07/05/17 Unknown Nucleated RBC % Not Reportable 07/05/17 Unknown Seg Neutrophils # 13.9 K/mm3 (1.8-7.7) H 07/07/17 05:00 Seg Neutrophils # Man 19.8 K/mm3 (1.8-7.7) H 07/05/17 Unknown Band Neutrophils # 0.2 K/mm3 07/05/17 Unknown Lymphocytes # (Manual) 1.6 K/mm3 (1.2-5.4) 07/05/17 Unknown Abs React Lymphs (Man) 0.0 K/mm3 07/05/17 Unknown Monocytes # (Manual) 0.7 K/mm3 (0.0-0.8) 07/05/17 Unknown Eosinophils # (Manual) 0.0 K/mm3 (0.0-0.4) 07/05/17 Unknown Basophils # (Manual) 0.0 K/mm3 (0.0-0.1) 07/05/17 Unknown Metamyelocytes # 0.0 K/mm3 07/05/17 Unknown Myelocytes # 0.0 K/mm3 07/05/17 Unknown Promyelocytes # 0.0 K/mm3 07/05/17 Unknown Blast Cells # 0.0 K/mm3 07/05/17 Unknown WBC Morphology Not Reportable 07/05/17 Unknown Hypersegmented Neuts Not Reportable 07/05/17 Unknown Hyposegmented Neuts Not Reportable 07/05/17 Unknown Hypogranular Neuts Not Reportable 07/05/17 Unknown Smudge Cells Not Reportable 07/05/17 Unknown Toxic Granulation Not Reportable 07/05/17 Unknown Toxic Vacuolation Not Reportable 07/05/17 Unknown Dohle Bodies Not Reportable 07/05/17 Unknown Pelger-Huet Anomaly Not Reportable 07/05/17 Unknown [place]s Not Reportable 07/05/17 Unknown Platelet Estimate Appears decreased 07/05/17 Unknown Clumped Platelets Not Reportable 07/05/17 Unknown Plt Clumps, EDTA Not Reportable 07/05/17 Unknown Large Platelets Not Reportable 07/05/17 Unknown Giant Platelets Not Reportable 07/05/17 Unknown Platelet Satelliting Not Reportable 07/05/17 Unknown Plt Morphology Comment Not Reportable 07/05/17 Unknown RBC Morphology Not Reportable 07/05/17 Unknown Dimorphic RBCs Not Reportable 07/05/17 Unknown Polychromasia Not Reportable 07/05/17 Unknown Hypochromasia Not Reportable 07/05/17 Unknown Poikilocytosis 1+ 07/05/17 Unknown Anisocytosis 1+ 07/05/17 Unknown Microcytosis Few 07/05/17 Unknown Macrocytosis Not Reportable 07/05/17 Unknown Spherocytes Not Reportable 07/05/17 Unknown Pappenheimer Bodies Not Reportable 07/05/17 Unknown Sickle Cells Not Reportable 07/05/17 Unknown Target Cells Not Reportable 07/05/17 Unknown Tear Drop Cells Not Reportable 07/05/17 Unknown Ovalocytes Not Reportable 07/05/17 Unknown Helmet Cells Not Reportable 07/05/17 Unknown Kim-[place]oxapater Bodies Not Reportable 07/05/17 Unknown [place] Rings Not Reportable 07/05/17 Unknown [place] Cells Not Reportable 07/05/17 Unknown Bite Cells Not Reportable 07/05/17 Unknown Crenated Cell Not Reportable 07/05/17 Unknown Elliptocytes Not Reportable 07/05/17 Unknown Acanthocytes (Spur) Not Reportable 07/05/17 Unknown Rouleaux Not Reportable 07/05/17 Unknown Hemoglobin C Crystals Not Reportable 07/05/17 Unknown Schistocytes Not Reportable 07/05/17 Unknown Malaria parasites Not Reportable 07/05/17 Unknown Morales Bodies Not Reportable 07/05/17 Unknown Hem Pathologist Commnt No 07/05/17 Unknown PT 12.9 Sec. (12.2-14.9) 07/06/17 08:30 INR 0.93 (0.87-1.13) 07/06/17 08:30 POC ABG pH 7.455 (7.35-7.45) H 07/07/17 04:38 POC ABG pCO2 38.9 (35-45) 07/07/17 04:38 POC ABG pO2 134 (80-105) H 07/07/17 04:38 POC ABG HCO3 27.3 07/07/17 04:38 POC ABG Total CO2 28 07/07/17 04:38 POC ABG O2 Sat 99 07/07/17 04:38 POC ABG Base Excess 3 07/07/17 04:38 FiO2 30 % 07/07/17 04:38 Sodium 140 mmol/L (137-145) 07/07/17 05:00 Potassium 3.6 mmol/L (3.6-5.0) 07/07/17 05:00 Chloride 102.5 mmol/L (98-107) 07/07/17 05:00 Carbon Dioxide 26 mmol/L (22-30) 07/07/17 05:00 Anion Gap 15 mmol/L 07/07/17 05:00 BUN 30 mg/dL (9-20) H 07/07/17 05:00 Creatinine 2.8 mg/dL (0.8-1.5) H 07/07/17 05:00 Estimated GFR 27 ml/min 07/07/17 05:00 BUN/Creatinine Ratio 11 % 07/07/17 05:00 Glucose 188 mg/dL (75-100) H 07/07/17 05:00 POC Glucose 275 (70-105) H 07/07/17 11:33 Osmolality 357 Mosm/kg 07/02/17 15:35 Lactic Acid 2.30 mmol/L (0.7-2.0) H* 07/05/17 Unknown Calcium 7.9 mg/dL (8.4-10.2) L 07/07/17 05:00 Ionized Calcium 4.6 mg/dL (4.8-5.6) L 07/04/17 14:10 Phosphorus 3.80 mg/dL (2.5-4.5) 07/04/17 14:10 Magnesium 1.80 mg/dL (1.7-2.3) 07/04/17 14:10 Total Bilirubin 0.40 mg/dL (0.1-1.2) 07/02/17 Unknown AST 31 units/L (5-40) 07/02/17 Unknown ALT 23 units/L (7-56) 07/02/17 Unknown Alkaline Phosphatase 139 units/L (35-129) H 07/02/17 Unknown Lactate Dehydrogenase 880 units/L (91-180) H 07/06/17 08:30 Total Creatine Kinase 58 units/L (55-170) 07/05/17 12:40 CK-MB (CK-2) 1.8 ng/mL (0.0-4.0) 07/05/17 12:40 CK-MB (CK-2) Rel Index 3.1 (0-4) 07/05/17 12:40 Troponin T 0.277 ng/mL (0.00-0.029) H* 07/05/17 12:40 C-Reactive Protein 9.90 mg/dL (0.00-1.30) H 07/05/17 Unknown Total Protein 4.9 g/dL (6.3-8.2) L 07/06/17 08:30 Albumin 3.3 g/dL (3.9-5) L 07/02/17 Unknown Albumin/Globulin Ratio 1.2 % 07/02/17 Unknown Triglycerides 83 mg/dL (2-149) 07/04/17 14:10 Cholesterol 83 mg/dL (50-199) 07/04/17 14:10 LDL Cholesterol Direct 22 mg/dL (50-130) L 07/04/17 14:10 HDL Cholesterol 45 mg/dL (40-59) 07/04/17 14:10 Cholesterol/HDL Ratio 1.84 % 07/04/17 14:10 TSH 3.200 mlU/mL (0.270-4.200) 07/02/17 Unknown Urine Color Yellow (Yellow) 07/02/17 17:25 Urine Turbidity Clear (Clear) 07/02/17 17:25 Urine pH 5.0 (5.0-7.0) 07/02/17 17:25 Ur Specific [place] 1.018 (1.003-1.030) 07/02/17 17:25 Urine Protein 100 mg/dl mg/dL (Negative) 07/02/17 17:25 Urine Glucose (UA) >=500 mg/dL (Negative) 07/02/17 17:25 Urine Ketones Neg mg/dL (Negative) 07/02/17 17:25 Urine Blood Sm (Negative) 07/02/17 17:25 Urine Nitrite Neg (Negative) 07/02/17 17:25 Urine Bilirubin Neg (Negative) 07/02/17 17:25 Urine Urobilinogen < 2.0 mg/dL (<2.0) 07/02/17 17:25 Ur Leukocyte Esterase Neg (Negative) 07/02/17 17:25 Urine WBC (Auto) 1.0 /HPF (0.0-6.0) 07/02/17 17:25 Urine RBC (Auto) 2.0 /HPF (0.0-6.0) 07/02/17 17:25 U Epithel Cells (Auto) 1.0 /HPF (0-13.0) 07/02/17 17:25 Fluid Type Pleural 07/06/17 16:53 Fluid Color Yellow 07/06/17 16:53 Fluid Appearance Clear 07/06/17 16:53 Fluid WBC 9 /mm3 07/06/17 16:53 Fluid RBC 6 /mm3 07/06/17 16:53 Fluid Seg Neutrophils 51.2 % 07/06/17 16:53 Fluid Lymphocytes 43.9 % 07/06/17 16:53 Fluid Reactive Lymphs 0 % 07/06/17 16:53 Fluid Monocytes 4.9 % 07/06/17 16:53 Fluid Eosinophils 0 % 07/06/17 16:53 Fluid Basophils 0 % 07/06/17 16:53 Fluid Comment 07/06/17 16:53 Salicylates < 0.3 mg/dL (2.8-20.0) L 07/02/17 Unknown Urine Opiates Screen Presumptive negative 07/02/17 17:25 Urine Methadone Screen Presumptive negative 07/02/17 17:25 Acetaminophen < 15.0 ug/mL (10.0-30.0) 07/02/17 Unknown Ur Barbiturates Screen Presumptive negative 07/02/17 17:25 Ur Phencyclidine Scrn Presumptive negative 07/02/17 17:25 Ur Amphetamines Screen Presumptive negative 07/02/17 17:25 U Benzodiazepines Scrn Presumptive negative 07/02/17 17:25 Urine Cocaine Screen Presumptive negative 07/02/17 17:25 U Marijuana (THC) Screen Presumptive negative 07/02/17 17:25 Drugs of Abuse Note Disclamer 07/02/17 17:25 Plasma/Serum Alcohol < 0.01 gm% (0-0.07) 07/02/17 Unknown
--- NOTE | 2017-07-07 12:55 | Progress Note ---
Assessment and Plan Impression: * End stage renal disease on HD * Cardiac arrest * Acute hypoxic respiratory failure on mechanical ventilation * Seizure disorder, new onset * Sepsis * DM s/p DKA Plan: * Hemodialysis MWF schedule * UF as tolerated. Ca bath adjusted * Vent management per Pulm/CCM * Empiric abx * Neuro work up in progress * Adjust medications for renal function Subjective Date of service: 07/07/17 Principal diagnosis: Acute Hypoxemic Resp Failure; S/P Cardiac Arrest; Hyperosmolar Non-ketotic Interval history: resting in bed today Objective - Exam Narrative Exam: General appearance: intubated EENT: ATNC, other (ETT in place) Respiratory: Present: Other (coarse breath sounds) Cardiology: regular, S1S2 Gastrointestinal: no tenderness, no distended Integumentary: no rash Neurologic: other (does not respond to tactile/verbal stimuli) Musculoskeletal: prevertebral tenderness, other (no edema) - Vital Signs Vital signs: Vital Signs - 12hr 07/07/17 07/07/17 07/07/17 01:00 01:16 01:30 Temperature Pulse Rate 91 H 91 H 90 Pulse Rate [ Anterior Bilateral Throughout] Respiratory 13 11 L 12 Rate Respiratory Rate [Anterior Bilateral Throughout] Blood Pressure 140/69 141/66 140/66 O2 Sat by Pulse 99 100 99 Oximetry 07/07/17 07/07/17 07/07/17 01:46 02:00 02:16 Temperature Pulse Rate 92 H 92 H 92 H Pulse Rate [ Anterior Bilateral Throughout] Respiratory 12 12 10 L Rate Respiratory Rate [Anterior Bilateral Throughout] Blood Pressure 138/67 140/70 140/67 O2 Sat by Pulse 100 100 100 Oximetry 07/07/17 07/07/17 07/07/17 02:30 02:35 02:46 Temperature Pulse Rate 97 H 97 H 90 Pulse Rate [ Anterior Bilateral Throughout] Respiratory 11 L 12 Rate Respiratory Rate [Anterior Bilateral Throughout] Blood Pressure 147/75 144/67 O2 Sat by Pulse 100 100 100 Oximetry 07/07/17 07/07/17 07/07/17 03:00 03:16 03:30 Temperature Pulse Rate 90 90 90 Pulse Rate [ Anterior Bilateral Throughout] Respiratory 12 12 12 Rate Respiratory Rate [Anterior Bilateral Throughout] Blood Pressure 141/70 145/69 147/71 O2 Sat by Pulse 100 100 100 Oximetry 07/07/17 07/07/17 07/07/17 03:46 04:00 04:10 Temperature Pulse Rate 88 86 Pulse Rate [ Anterior Bilateral Throughout] Respiratory 12 12 12 Rate Respiratory Rate [Anterior Bilateral Throughout] Blood Pressure 143/68 150/71 O2 Sat by Pulse 100 100 100 Oximetry 07/07/17 07/07/17 07/07/17 04:16 04:30 04:33 Temperature Pulse Rate 89 90 90 Pulse Rate [ Anterior Bilateral Throughout] Respiratory 12 12 Rate Respiratory Rate [Anterior Bilateral Throughout] Blood Pressure 151/71 144/70 144/70 O2 Sat by Pulse 100 100 100 Oximetry 07/07/17 07/07/17 07/07/17 04:46 05:00 05:16 Temperature Pulse Rate 91 H 89 93 H Pulse Rate [ Anterior Bilateral Throughout] Respiratory 12 11 L 12 Rate Respiratory Rate [Anterior Bilateral Throughout] Blood Pressure 151/71 145/74 144/68 O2 Sat by Pulse 100 100 100 Oximetry 07/07/17 07/07/17 07/07/17 05:17 05:30 05:46 Temperature 98.4 F Pulse Rate 89 88 Pulse Rate [ Anterior Bilateral Throughout] Respiratory 12 12 12 Rate Respiratory Rate [Anterior Bilateral Throughout] Blood Pressure 152/73 149/72 O2 Sat by Pulse 100 100 100 Oximetry 07/07/17 07/07/17 07/07/17 06:00 06:16 06:30 Temperature Pulse Rate 88 88 91 H Pulse Rate [ Anterior Bilateral Throughout] Respiratory 12 12 12 Rate Respiratory Rate [Anterior Bilateral Throughout] Blood Pressure 149/69 150/70 148/73 O2 Sat by Pulse 100 100 100 Oximetry 07/07/17 07/07/17 07/07/17 06:46 07:00 07:16 Temperature Pulse Rate 86 91 H 88 Pulse Rate [ Anterior Bilateral Throughout] Respiratory 12 12 12 Rate Respiratory Rate [Anterior Bilateral Throughout] Blood Pressure 151/72 146/72 146/70 O2 Sat by Pulse 100 100 100 Oximetry 07/07/17 07/07/17 07/07/17 07:30 07:46 07:50 Temperature 99.0 F Pulse Rate 89 92 H Pulse Rate [ Anterior Bilateral Throughout] Respiratory 11 L 12 Rate Respiratory Rate [Anterior Bilateral Throughout] Blood Pressure 151/80 146/70 O2 Sat by Pulse 100 100 Oximetry 07/07/17 07/07/17 07/07/17 08:00 08:10 08:16 Temperature Pulse Rate 86 87 Pulse Rate [ 89 91 H Anterior Bilateral Throughout] Respiratory 12 12 Rate Respiratory 12 14 Rate [Anterior Bilateral Throughout] Blood Pressure 139/67 139/67 O2 Sat by Pulse 100 100 Oximetry 07/07/17 07/07/17 07/07/17 08:30 08:46 09:00 Temperature Pulse Rate 88 86 91 H Pulse Rate [ Anterior Bilateral Throughout] Respiratory 12 12 13 Rate Respiratory Rate [Anterior Bilateral Throughout] Blood Pressure 148/74 148/74 148/71 O2 Sat by Pulse 100 100 100 Oximetry 07/07/17 07/07/17 07/07/17 09:16 09:30 09:46 Temperature Pulse Rate 89 88 91 H Pulse Rate [ Anterior Bilateral Throughout] Respiratory 12 10 L 14 Rate Respiratory Rate [Anterior Bilateral Throughout] Blood Pressure 148/71 140/70 140/70 O2 Sat by Pulse 100 100 100 Oximetry 07/07/17 07/07/17 07/07/17 10:00 10:16 10:30 Temperature Pulse Rate 91 H 92 H 92 H Pulse Rate [ Anterior Bilateral Throughout] Respiratory 12 12 12 Rate Respiratory Rate [Anterior Bilateral Throughout] Blood Pressure 144/71 144/71 141/72 O2 Sat by Pulse 100 100 100 Oximetry 07/07/17 07/07/17 07/07/17 10:45 10:46 11:00 Temperature Pulse Rate 91 H 89 93 H Pulse Rate [ Anterior Bilateral Throughout] Respiratory 11 L 10 L Rate Respiratory Rate [Anterior Bilateral Throughout] Blood Pressure 141/72 141/72 146/68 O2 Sat by Pulse 100 100 Oximetry 07/07/17 07/07/17 07/07/17 11:16 11:30 11:46 Temperature Pulse Rate 92 H 89 87 Pulse Rate [ Anterior Bilateral Throughout] Respiratory 11 L 12 12 Rate Respiratory Rate [Anterior Bilateral Throughout] Blood Pressure 146/68 137/68 137/68 O2 Sat by Pulse 100 100 100 Oximetry 07/07/17 07/07/17 07/07/17 11:49 12:00 12:16 Temperature 98.7 F Pulse Rate 80 80 Pulse Rate [ Anterior Bilateral Throughout] Respiratory 12 12 Rate Respiratory Rate [Anterior Bilateral Throughout] Blood Pressure 118/57 118/57 O2 Sat by Pulse 100 100 Oximetry - Lab 07/07/17 05:00 07/07/17 05:00 Most recent lab results Calcium 7.9 mg/dL (8.4-10.2) L 07/07/17 05:00 Phosphorus 3.80 mg/dL (2.5-4.5) 07/04/17 14:10 Magnesium 1.80 mg/dL (1.7-2.3) 07/04/17 14:10
--- NOTE | 2017-07-07 15:33 | Gastroenterology Consultation ---
History of Present Illness - Reason for Consult Consult date: 07/07/17 anemia Requesting physician: JATIN MELVIN - History of Present Illness Mr Quintero is a 76 yo aam who presents with after being found down with respiratory failure, AMS, and DKA. Patient is currently intubated and on mechanical ventilation. History is gathered from chart review and from patient' s nurse. He has been having dark appearing stools from FMS with slow drop in hct for which GI has been consulted. He is currently on tube feeds which he has been tolerating. No reported vomiting, hematemesis, or blood from feeding tube. FMS currently with dark brown appearing stool, no enid blood or obvious melena/tarry stools. HD stable at this time. Past History Past Medical History: diabetes, ESRD, hypertension Past Surgical History: Other (Permacath placement) Social history: single. denies: smoking, alcohol abuse Family history: no significant family history Medications and Allergies Allergies Allergy/AdvReac Type Severity Reaction Status Date / Time No Known Allergies Allergy Unverified 11/17/14 12:29 Home Medications Medication Instructions Recorded Confirmed Last Taken Type Aspirin EC [Aspirin Enteric Coated 81 mg PO QDAY #90 tablet. 11/19/14 Unknown Rx TAB] amLODIPine [Norvasc] 5 mg PO DAILY #90 tab 11/19/14 07/02/17 Unknown Rx Ascorbic Acid [Vitamin C] 500 mg PO DAILY 06/26/17 07/02/17 Unknown History Bisacodyl [Laxative] 5 mg PO DAILY 06/26/17 07/02/17 Unknown History Calcitriol [Rocaltrol] 0.25 mcg PO DAILY 06/26/17 07/02/17 Unknown History Carvedilol [Coreg] 12.5 mg PO BID 06/26/17 07/02/17 Unknown History Ferrous Sulfate [Feosol 325 MG tab] 325 mg PO BID 06/26/17 07/02/17 Unknown History Folic Acid [Folvite] 1 mg PO QDAY 06/26/17 07/02/17 Unknown History Insulin Lispro [Humalog 100 0 units SQ AC 06/26/17 07/02/17 Unknown History UNITS/ML Kwikpen] Multivitamin Tab W-MINERAL 1 each PO QD 06/26/17 07/02/17 Unknown History [Multiple Vitamin/Mineral (Theragran M)] Cephalexin [Keflex] 500 mg PO Q8HR 3 Days cap 06/28/17 07/02/17 Unknown Rx Insulin NPH/Regular [NovoLIN 70/30] 10 unit SUB-Q BIDDIAB 30 Days 06/28/1707/02 Unknown Rx units Active Meds: Active Medications Albuterol/Ipratropium (Duoneb *Not For Prn Use*) 1 ampul IH Q8HRT [facility] Last Admin: 07/07/17 08:29 Dose: 1 ampul Amlodipine Besylate (Norvasc) 10 mg PO DAILY [facility] Last Admin: 07/07/17 10:45 Dose: 10 mg Lipase/Protease/Amylase (Pancreaze Dr 10,500 Unit) 1 each FEEDTUBE PRN PRN PRN Reason: For Clogged Feeding Tube Aspirin (Aspirin) 325 mg PO QDAY [facility] Last Admin: 07/07/17 10:44 Dose: 325 mg Bisacodyl (Dulcolax) 10 mg NC QDAY PRN PRN Reason: constipation unrelieved by MOM Calcitriol (Rocaltrol) 0.25 mcg PO DAILY [facility] Last Admin: 07/07/17 10:47 Dose: 0.25 mcg Carvedilol (Coreg) 12.5 mg PO BID [facility] Last Admin: 07/07/17 10:45 Dose: 12.5 mg Famotidine (Pepcid) 20 mg PO DAILY [facility] Last Admin: 07/07/17 10:45 Dose: 20 mg Ferrous Sulfate (Ferrous Sulfate) 300 mg PO BID [facility] Last Admin: 07/07/17 10:46 Dose: 300 mg Folic Acid (Folvite) 1 mg PO QDAY [facility] Last Admin: 07/07/17 10:03 Dose: 1 mg Heparin Sodium (Porcine) (Heparin) 5,000 unit IV [place] PRN PRN Reason: hemodialysis Last Admin: 07/06/17 17:51 Dose: 5,000 unit Hydralazine HCl (Apresoline) 10 mg IV Q6H PRN PRN Reason: SBP > 160 Last Admin: 07/06/17 21:47 Dose: 10 mg Hydrophilic Ointment (Vaseline Lip Therapy) 1 applic TP Q2HR PRN PRN Reason: Dry Lips Last Admin: 07/03/17 15:11 Dose: 1 applic Sodium Chloride (Nacl 0.9%) 100 mls @ 999 mls/hr IV [place] PRN PRN Reason: Hypotension Metronidazole (Flagyl 500 Mg/100 Ml) 500 mg in 100 mls @ 100 mls/hr IV Q8HR [facility] Last Admin: 07/07/17 14:40 Dose: 100 mls/hr Sodium Chloride (Nacl 0.9%) 100 mls @ 999 mls/hr IV [place] PRN PRN Reason: Hypotension Insulin Aspart (Novolog) 0 units SUB-Q Q6HR [place] PRN Reason: Protocol Last Admin: 07/07/17 12:00 Dose: 4 units Insulin Detemir (Levemir) 10 units SUB-Q QAMDIAB [facility] Last Admin: 07/07/17 10:50 Dose: 10 units Magnesium Hydroxide (Milk Of Magnesia) 30 ml PO Q4H PRN PRN Reason: Constipation Multivitamins/Minerals (Theragran-M Tab) 1 each PO QDAY [facility] Last Admin: 07/07/17 10:49 Dose: 1 each Simple Syrup (Simple Syrup) 15 ml FEEDTUBE PRN PRN PRN Reason: Hypoglycemia Last Admin: 07/05/17 18:20 Dose: 15 ml Simple Syrup (Simple Syrup) 30 ml FEEDTUBE PRN PRN PRN Reason: Hypoglycemia Sodium Bicarbonate (Sodium Bicarbonate) 325 mg FEEDTUBE PRN PRN PRN Reason: For Clogged Feeding Tube Review of Systems - Review of Systems ROS unobtainable: due to endotracheal tube, due to mental status Exam - Exam Narrative Exam: Gen: intubated/sedated, chronically ill appearing Head: nc/at Mouth: + NG tube Eyes: anicteric CV: RRR Lungs: coarse bs bilaterally Abd: soft, nt, nd, +bs Ext: no edema FMS: dark brown stool - Constitutional Vital Signs: Temp Pulse Resp BP Pulse Ox 98.7 F 81 9 L 123/58 100 07/07/17 11:49 07/07/17 15:00 07/07/17 15:00 07/07/17 15:00 07/07/17 15:00 - Labs CBC & Chem 7: 07/08/17 06:12 07/08/17 06:12 Lab Results: Laboratory Results - last 24 hr 07/04/17 07/06/17 07/06/17 14:10 11:13 16:53 WBC RBC Hgb Hct MCV MCH MCHC RDW Plt Count Lymph % (Auto) [place] % (Auto) Eos % (Auto) Baso % (Auto) Lymph # [place] # Eos # Baso # Seg Neutrophils % Seg Neutrophils # POC ABG pH POC ABG pCO2 POC ABG pO2 POC ABG HCO3 POC ABG Total CO2 POC ABG O2 Sat POC ABG Base Excess FiO2 Sodium Potassium Chloride Carbon Dioxide Anion Gap BUN Creatinine Estimated GFR BUN/Creatinine Ratio Glucose POC Glucose 216 H Calcium Ionized Calcium 4.6 L Fluid Type Pleural Fluid Color Yellow Fluid Appearance Clear Fluid WBC 9 Fluid RBC 6 Fluid Seg Neutrophils 51.2 Fluid Lymphocytes 43.9 Fluid Reactive Lymphs 0 Fluid Monocytes 4.9 Fluid Eosinophils 0 Fluid Basophils 0 Fluid Comment 07/06/17 07/06/17 07/07/17 17:14 23:38 04:38 WBC RBC Hgb Hct MCV MCH MCHC RDW Plt Count Lymph % (Auto) [place] % (Auto) Eos % (Auto) Baso % (Auto) Lymph # [place] # Eos # Baso # Seg Neutrophils % Seg Neutrophils # POC ABG pH 7.455 H POC ABG pCO2 38.9 POC ABG pO2 134 H POC ABG HCO3 27.3 POC ABG Total CO2 28 POC ABG O2 Sat 99 POC ABG Base Excess 3 FiO2 30 Sodium Potassium Chloride Carbon Dioxide Anion Gap BUN Creatinine Estimated GFR BUN/Creatinine Ratio Glucose POC Glucose 211 H 122 H Calcium Ionized Calcium Fluid Type Fluid Color Fluid Appearance Fluid WBC Fluid RBC Fluid Seg Neutrophils Fluid Lymphocytes Fluid Reactive Lymphs Fluid Monocytes Fluid Eosinophils Fluid Basophils Fluid Comment 07/07/17 07/07/17 07/07/17 05:00 05:00 05:17 WBC 16.1 H RBC 3.00 L Hgb 8.9 L Hct 26.6 L MCV 89 MCH 30 MCHC 34 RDW 15.6 H Plt Count 106 L Lymph % (Auto) 4.1 L [place] % (Auto) 8.0 H Eos % (Auto) 1.1 Baso % (Auto) 0.2 Lymph # 0.7 L [place] # 1.3 H Eos # 0.2 Baso # 0.0 Seg Neutrophils % 86.6 H Seg Neutrophils # 13.9 H POC ABG pH POC ABG pCO2 POC ABG pO2 POC ABG HCO3 POC ABG Total CO2 POC ABG O2 Sat POC ABG Base Excess FiO2 Sodium 140 Potassium 3.6 Chloride 102.5 Carbon Dioxide 26 Anion Gap 15 BUN 30 H Creatinine 2.8 H Estimated GFR 27 BUN/Creatinine Ratio 11 Glucose 188 H POC Glucose 189 H Calcium 7.9 L Ionized Calcium Fluid Type Fluid Color Fluid Appearance Fluid WBC Fluid RBC Fluid Seg Neutrophils Fluid Lymphocytes Fluid Reactive Lymphs Fluid Monocytes Fluid Eosinophils Fluid Basophils Fluid Comment 07/07/17 11:33 WBC RBC Hgb Hct MCV MCH MCHC RDW Plt Count Lymph % (Auto) [place] % (Auto) Eos % (Auto) Baso % (Auto) Lymph # [place] # Eos # Baso # Seg Neutrophils % Seg Neutrophils # POC ABG pH POC ABG pCO2 POC ABG pO2 POC ABG HCO3 POC ABG Total CO2 POC ABG O2 Sat POC ABG Base Excess FiO2 Sodium Potassium Chloride Carbon Dioxide Anion Gap BUN Creatinine Estimated GFR BUN/Creatinine Ratio Glucose POC Glucose 275 H Calcium Ionized Calcium Fluid Type Fluid Color Fluid Appearance Fluid WBC Fluid RBC Fluid Seg Neutrophils Fluid Lymphocytes Fluid Reactive Lymphs Fluid Monocytes Fluid Eosinophils Fluid Basophils Fluid Comment Assessment and Plan 1. Anemia - slow hct drop since admission, dark brown stool in FMS, no evidence of overt GI bleeding at present time. May have slow gi source of blood loss contributing to anemia, although likely multifactorial. -PPI BID dosing -transfuse as needed to keep hct > 21 -hold off on endoscopy unless signs of overt bleeding 2. Respiratory failure 3. AMS 4. DKA
[2017-07-07 16:19] LABS: ISTAT Base Excess 1; ISTAT HCO3 25.5; ISTAT PCO2 38.9 (35-45); ISTAT PH 7.424 (7.35-7.45); ISTAT PO2 126 (80-105); ISTAT SO2 99; ISTAT TCO2 27
[2017-07-08] MEDS: NOVOLOG SUB-Q SCH ×3 (00:35→18:38)
[2017-07-08 05:56] LABS: ISTAT Base Excess 5; ISTAT HCO3 28.8; ISTAT PH 7.477 (7.35-7.45); ISTAT PO2 118 (80-105); ISTAT SO2 99; ISTAT TCO2 30
[2017-07-08] MEDS: FLAGYL 500 MG/100 ML 500 MG/100 ML BAG IV SCH ×3 (06:05→21:18)
[2017-07-08 06:34] LABS: Basophils % (Auto) 0.4 % (0.0-1.8); Eosinophils % (Auto) 1.9 % (0.0-4.3); Hematocrit 29.1 % (35.5-45.6); Hemoglobin 9.5 gm/dl (11.8-15.2); Mean Corpuscular HGB Conc 33 % (32-34); Mean Corpuscular Hemoglobin 29 pg (28-32); Mean Corpuscular Volume 89 fl (84-94); Platelet Count 133 K/mm3 (140-440); Red Blood Count 3.27 M/mm3 (3.65-5.03); Red Cell Distribution Width 15.6 % (13.2-15.2)
[2017-07-08 06:43] LABS: Calcium 7.8 mg/dL (8.4-10.2); Chloride 103.3 mmol/L (98-107); Potassium 3.8 mmol/L (3.6-5.0)
[2017-07-08] MEDS: DUONEB *Not for PRN Use IH SCH ×3 (08:35→23:34)
--- NOTE | 2017-07-08 09:48 | XRay Report ---
AP CHEST: HISTORY: Followup respiratory failure The endotracheal tube has been retracted since yesterday's exam and now terminates 3 cm superior to the ioana. The right venous catheter and feeding tube are in adequate position. Bibasilar atelectasis has developed since yesterday's exam. The upper lung zones are clear. No large pleural effusion or pneumothorax. Heart size remains within normal limits. IMPRESSION: Adequate placement of lines and tubes. Bibasilar atelectasis has developed since yesterday's exam.
[2017-07-08] MEDS: LEVEMIR SUB-Q SCH (09:53)
[2017-07-08] MEDS: NORVASC PO SCH (09:54)
[2017-07-08] MEDS: THERAGRAN-M Tab PO SCH (09:54)
[2017-07-08] MEDS: ASPIRIN PO SCH (09:55)
[2017-07-08] MEDS: ROCALTROL PO SCH (09:55)
[2017-07-08] MEDS: COREG PO SCH ×2 (09:55→21:19)
[2017-07-08] MEDS: FOLVITE PO SCH (09:55)
[2017-07-08] MEDS: FERROUS SULFATE PO SCH ×2 (09:56→21:19)
[2017-07-08] MEDS: PEPCID PO SCH (10:00)
--- NOTE | 2017-07-08 10:50 | Progress Note ---
Assessment and Plan Assessment and plan: Acute respiratory failure Continue mechanical ventilation per pulmonary. Continue bronchodilation and pulmonary toileting DKA (diabetic ketoacidoses) Resolved. Discontinued Insulin drip protocol. Continue IVF resuscitation. Continue long-acting insulin regimen. Cardiac arrest Cardiology following Sepsis Leukocytosis has improved overall. Blood cultures thus far negative. ID consultation. Continue empiric antibiotics of vancomycin and Zosyn. NSTEMI type II Etiology secondary to sepsis. Pleural effusion Patient status post ultrasound-guided thoracentesis with 1 L removed Lactic acid acidosis Secondary to DKA, sepsis and Cardiac arrest, IVF resuscitation, treated DKA, repeat lactic acid level Metabolic encephalopathy Secondary to DKA complicated by cardiac arrest, supportive care, neuro checks. Anoxic brain damage S/P Cardiac arrest. Neurology following. Check EEG. Seizure disorder Neurology consultation pending. Follow-up EEG. Vomiting Etiology, may be secondary to obstruction. Check KUB. Continue NGT to suction DVT prophylaxis Anemia/ Melena GI with no recommendations of endoscopy at this time. Continue to follow H&H. No signs of active bleeding. The high probability of a clinically significant, sudden or life threatening deterioration of the [respiratory, cardiac and neurological] system(s) required my full and direct attention, intervention and personal management. The aggregate critical care time was [32] minutes. This time is in addition to time spent performing reported procedures but includes the following: [x] Data Review and interpretation [x] Patient assessment and monitoring of vital signs [x] Documentation [x] Medication orders and management History Interval history: Patient is intubated on mechanical ventilation. Hospitalist Physical - Constitutional Vitals: Temp Pulse Resp BP Pulse Ox 98.3 F 97 H 13 151/74 100 07/08/17 07:51 07/08/17 09:55 07/08/17 09:00 07/08/17 09:55 07/08/17 09:00 General appearance: Present: other (intubated, unresponsive) - EENT Eyes: Present: PERRL, EOM intact ENT: hearing intact, clear oral mucosa, dentition normal - Neck Neck: Present: supple, normal ROM - Respiratory Respiratory effort: normal Respiratory: bilateral: diminished, rhonchi - Cardiovascular Rhythm: regular Heart Sounds: Present: S1 & S2. Absent: gallop, rub - Extremities Extremities: no ischemia, No edema, Full ROM - Abdominal General gastrointestinal: soft, non-tender, non-distended, normal bowel sounds - Integumentary Integumentary: Present: clear, warm, dry - Neurologic Neurologic: CNII-XII intact, moves all extremities Results - Labs CBC & Chem 7: 07/08/17 06:12 07/08/17 06:12 Labs: Laboratory Last Values WBC 17.0 K/mm3 (4.5-11.0) H 07/08/17 06:12 RBC 3.27 M/mm3 (3.65-5.03) L 07/08/17 06:12 Hgb 9.5 gm/dl (11.8-15.2) L 07/08/17 06:12 Hct 29.1 % (35.5-45.6) L 07/08/17 06:12 MCV 89 fl (84-94) 07/08/17 06:12 MCH 29 pg (28-32) 07/08/17 06:12 MCHC 33 % (32-34) 07/08/17 06:12 RDW 15.6 % (13.2-15.2) H 07/08/17 06:12 Plt Count 133 K/mm3 (140-440) L 07/08/17 06:12 Lymph % (Auto) 4.6 % (13.4-35.0) L 07/08/17 06:12 [place] % (Auto) 9.2 % (0.0-7.3) H 07/08/17 06:12 Eos % (Auto) 1.9 % (0.0-4.3) 07/08/17 06:12 Baso % (Auto) 0.4 % (0.0-1.8) 07/08/17 06:12 Lymph # 0.8 K/mm3 (1.2-5.4) L 07/08/17 06:12 [place] # 1.6 K/mm3 (0.0-0.8) H 07/08/17 06:12 Eos # 0.3 K/mm3 (0.0-0.4) 07/08/17 06:12 Baso # 0.1 K/mm3 (0.0-0.1) 07/08/17 06:12 Add Manual Diff Complete 07/05/17 Unknown Total Counted 100 07/05/17 Unknown Seg Neutrophils % 83.9 % (40.0-70.0) H 07/08/17 06:12 Seg Neuts % (Manual) 89.0 % (40.0-70.0) H 07/05/17 Unknown Band Neutrophils % 1.0 % 07/05/17 Unknown Lymphocytes % (Manual) 7.0 % (13.4-35.0) L 07/05/17 Unknown Reactive Lymphs % (Man) 0 % 07/05/17 Unknown Monocytes % (Manual) 3.0 % (0.0-7.3) 07/05/17 Unknown Eosinophils % (Manual) 0 % (0.0-4.3) 07/05/17 Unknown Basophils % (Manual) 0 % (0.0-1.8) 07/05/17 Unknown Metamyelocytes % 0 % 07/05/17 Unknown Myelocytes % 0 % 07/05/17 Unknown Promyelocytes % 0 % 07/05/17 Unknown Blast Cells % 0 % 07/05/17 Unknown Nucleated RBC % Not Reportable 07/05/17 Unknown Seg Neutrophils # 14.3 K/mm3 (1.8-7.7) H 07/08/17 06:12 Seg Neutrophils # Man 19.8 K/mm3 (1.8-7.7) H 07/05/17 Unknown Band Neutrophils # 0.2 K/mm3 07/05/17 Unknown Lymphocytes # (Manual) 1.6 K/mm3 (1.2-5.4) 07/05/17 Unknown Abs React Lymphs (Man) 0.0 K/mm3 07/05/17 Unknown Monocytes # (Manual) 0.7 K/mm3 (0.0-0.8) 07/05/17 Unknown Eosinophils # (Manual) 0.0 K/mm3 (0.0-0.4) 07/05/17 Unknown Basophils # (Manual) 0.0 K/mm3 (0.0-0.1) 07/05/17 Unknown Metamyelocytes # 0.0 K/mm3 07/05/17 Unknown Myelocytes # 0.0 K/mm3 07/05/17 Unknown Promyelocytes # 0.0 K/mm3 07/05/17 Unknown Blast Cells # 0.0 K/mm3 07/05/17 Unknown WBC Morphology Not Reportable 07/05/17 Unknown Hypersegmented Neuts Not Reportable 07/05/17 Unknown Hyposegmented Neuts Not Reportable 07/05/17 Unknown Hypogranular Neuts Not Reportable 07/05/17 Unknown Smudge Cells Not Reportable 07/05/17 Unknown Toxic Granulation Not Reportable 07/05/17 Unknown Toxic Vacuolation Not Reportable 07/05/17 Unknown Dohle Bodies Not Reportable 07/05/17 Unknown Pelger-Huet Anomaly Not Reportable 07/05/17 Unknown [place] Rods Not Reportable 07/05/17 Unknown Platelet Estimate Appears decreased 07/05/17 Unknown Clumped Platelets Not Reportable 07/05/17 Unknown Plt Clumps, EDTA Not Reportable 07/05/17 Unknown Large Platelets Not Reportable 07/05/17 Unknown Giant Platelets Not Reportable 07/05/17 Unknown Platelet Satelliting Not Reportable 07/05/17 Unknown Plt Morphology Comment Not Reportable 07/05/17 Unknown RBC Morphology Not Reportable 07/05/17 Unknown Dimorphic RBCs Not Reportable 07/05/17 Unknown Polychromasia Not Reportable 07/05/17 Unknown Hypochromasia Not Reportable 07/05/17 Unknown Poikilocytosis 1+ 07/05/17 Unknown Anisocytosis 1+ 07/05/17 Unknown Microcytosis Few 07/05/17 Unknown Macrocytosis Not Reportable 07/05/17 Unknown Spherocytes Not Reportable 07/05/17 Unknown Pappenheimer Bodies Not Reportable 07/05/17 Unknown Sickle Cells Not Reportable 07/05/17 Unknown Target Cells Not Reportable 07/05/17 Unknown Tear Drop Cells Not Reportable 07/05/17 Unknown Ovalocytes Not Reportable 07/05/17 Unknown Helmet Cells Not Reportable 07/05/17 Unknown [place] Bodies Not Reportable 07/05/17 Unknown [place] Rings Not Reportable 07/05/17 Unknown [place] Cells Not Reportable 07/05/17 Unknown Bite Cells Not Reportable 07/05/17 Unknown Crenated Cell Not Reportable 07/05/17 Unknown Elliptocytes Not Reportable 07/05/17 Unknown Acanthocytes (Spur) Not Reportable 07/05/17 Unknown Rouleaux Not Reportable 07/05/17 Unknown Hemoglobin C Crystals Not Reportable 07/05/17 Unknown Schistocytes Not Reportable 07/05/17 Unknown Malaria parasites Not Reportable 07/05/17 Unknown Morales Bodies Not Reportable 07/05/17 Unknown Hem Pathologist Commnt No 07/05/17 Unknown PT 12.9 Sec. (12.2-14.9) 07/06/17 08:30 INR 0.93 (0.87-1.13) 07/06/17 08:30 POC ABG pH 7.477 (7.35-7.45) H 07/08/17 05:54 POC ABG pCO2 39.0 (35-45) 07/08/17 05:54 POC ABG pO2 118 (80-105) H 07/08/17 05:54 POC ABG HCO3 28.8 07/08/17 05:54 POC ABG Total CO2 30 07/08/17 05:54 POC ABG O2 Sat 99 07/08/17 05:54 POC ABG Base Excess 5 07/08/17 05:54 FiO2 28 % 07/08/17 05:54 Sodium 141 mmol/L (137-145) 07/08/17 06:12 Potassium 3.8 mmol/L (3.6-5.0) 07/08/17 06:12 Chloride 103.3 mmol/L (98-107) 07/08/17 06:12 Carbon Dioxide 25 mmol/L (22-30) 07/08/17 06:12 Anion Gap 17 mmol/L 07/08/17 06:12 BUN 44 mg/dL (9-20) H 07/08/17 06:12 Creatinine 3.4 mg/dL (0.8-1.5) H 07/08/17 06:12 Estimated GFR 21 ml/min 07/08/17 06:12 BUN/Creatinine Ratio 13 % 07/08/17 06:12 Glucose 190 mg/dL (75-100) H 07/08/17 06:12 POC Glucose 199 (70-105) H 07/08/17 05:30 Osmolality 357 Mosm/kg 07/02/17 15:35 Lactic Acid 2.30 mmol/L (0.7-2.0) H* 07/05/17 Unknown Calcium 7.8 mg/dL (8.4-10.2) L 07/08/17 06:12 Ionized Calcium 4.6 mg/dL (4.8-5.6) L 07/04/17 14:10 Phosphorus 3.80 mg/dL (2.5-4.5) 07/04/17 14:10 Magnesium 1.80 mg/dL (1.7-2.3) 07/04/17 14:10 Total Bilirubin 0.40 mg/dL (0.1-1.2) 07/02/17 Unknown AST 31 units/L (5-40) 07/02/17 Unknown ALT 23 units/L (7-56) 07/02/17 Unknown Alkaline Phosphatase 139 units/L (35-129) H 07/02/17 Unknown Lactate Dehydrogenase 880 units/L (91-180) H 07/06/17 08:30 Total Creatine Kinase 58 units/L (55-170) 07/05/17 12:40 CK-MB (CK-2) 1.8 ng/mL (0.0-4.0) 07/05/17 12:40 CK-MB (CK-2) Rel Index 3.1 (0-4) 07/05/17 12:40 Troponin T 0.277 ng/mL (0.00-0.029) H* 07/05/17 12:40 C-Reactive Protein 9.90 mg/dL (0.00-1.30) H 07/05/17 Unknown Total Protein 4.9 g/dL (6.3-8.2) L 07/06/17 08:30 Albumin 3.3 g/dL (3.9-5) L 07/02/17 Unknown Albumin/Globulin Ratio 1.2 % 07/02/17 Unknown Triglycerides 83 mg/dL (2-149) 07/04/17 14:10 Cholesterol 83 mg/dL (50-199) 07/04/17 14:10 LDL Cholesterol Direct 22 mg/dL (50-130) L 07/04/17 14:10 HDL Cholesterol 45 mg/dL (40-59) 07/04/17 14:10 Cholesterol/HDL Ratio 1.84 % 07/04/17 14:10 TSH 3.200 mlU/mL (0.270-4.200) 07/02/17 Unknown Urine Color Yellow (Yellow) 07/02/17 17:25 Urine Turbidity Clear (Clear) 07/02/17 17:25 Urine pH 5.0 (5.0-7.0) 07/02/17 17:25 Ur Specific [place] 1.018 (1.003-1.030) 07/02/17 17:25 Urine Protein 100 mg/dl mg/dL (Negative) 07/02/17 17:25 Urine Glucose (UA) >=500 mg/dL (Negative) 07/02/17 17:25 Urine Ketones Neg mg/dL (Negative) 07/02/17 17:25 Urine Blood Sm (Negative) 07/02/17 17:25 Urine Nitrite Neg (Negative) 07/02/17 17:25 Urine Bilirubin Neg (Negative) 07/02/17 17:25 Urine Urobilinogen < 2.0 mg/dL (<2.0) 07/02/17 17:25 Ur Leukocyte Esterase Neg (Negative) 07/02/17 17:25 Urine WBC (Auto) 1.0 /HPF (0.0-6.0) 07/02/17 17:25 Urine RBC (Auto) 2.0 /HPF (0.0-6.0) 07/02/17 17:25 U Epithel Cells (Auto) 1.0 /HPF (0-13.0) 07/02/17 17:25 Fluid Type Pleural 07/06/17 16:53 Fluid Color Yellow 07/06/17 16:53 Fluid Appearance Clear 07/06/17 16:53 Fluid WBC 9 /mm3 07/06/17 16:53 Fluid RBC 6 /mm3 07/06/17 16:53 Fluid Seg Neutrophils 51.2 % 07/06/17 16:53 Fluid Lymphocytes 43.9 % 07/06/17 16:53 Fluid Reactive Lymphs 0 % 07/06/17 16:53 Fluid Monocytes 4.9 % 07/06/17 16:53 Fluid Eosinophils 0 % 07/06/17 16:53 Fluid Basophils 0 % 07/06/17 16:53 Fluid Comment 07/06/17 16:53 Salicylates < 0.3 mg/dL (2.8-20.0) L 07/02/17 Unknown Urine Opiates Screen Presumptive negative 07/02/17 17:25 Urine Methadone Screen Presumptive negative 07/02/17 17:25 Acetaminophen < 15.0 ug/mL (10.0-30.0) 07/02/17 Unknown Ur Barbiturates Screen Presumptive negative 07/02/17 17:25 Ur Phencyclidine Scrn Presumptive negative 07/02/17 17:25 Ur Amphetamines Screen Presumptive negative 07/02/17 17:25 U Benzodiazepines Scrn Presumptive negative 07/02/17 17:25 Urine Cocaine Screen Presumptive negative 07/02/17 17:25 U Marijuana (THC) Screen Presumptive negative 07/02/17 17:25 Drugs of Abuse Note Disclamer 07/02/17 17:25 Plasma/Serum Alcohol < 0.01 gm% (0-0.07) 07/02/17 Unknown
--- NOTE | 2017-07-08 12:03 | Progress Note ---
Assessment and Plan Impression: * End stage renal disease on HD * Cardiac arrest * Acute hypoxic respiratory failure on mechanical ventilation * Seizure disorder, new onset * Sepsis * DM s/p DKA Plan: * Hemodialysis MWF schedule * UF as tolerated. Ca bath adjusted * Vent management per Pulm/CCM * Empiric abx * Neuro work up in progress * Adjust medications for renal function Subjective Date of service: 07/08/17 Principal diagnosis: Acute Hypoxemic Resp Failure; S/P Cardiac Arrest; Hyperosmolar Non-ketotic Interval history: resting in bed today Objective - Exam Narrative Exam: General appearance: intubated EENT: ATNC, other (ETT in place) Respiratory: Present: Other (coarse breath sounds) Cardiology: regular, S1S2 Gastrointestinal: no tenderness, no distended Integumentary: no rash Neurologic: other (does not respond to tactile/verbal stimuli) Musculoskeletal: prevertebral tenderness, other (no edema) - Vital Signs Vital signs: Vital Signs - 12hr 07/08/17 07/08/17 07/08/17 00:05 01:01 02:00 Temperature Pulse Rate 90 95 H 92 H Pulse Rate [ Anterior Bilateral Throughout] Pulse Rate [ From Monitor] Respiratory 15 15 12 Rate Respiratory Rate [Anterior Bilateral Throughout] Blood Pressure 142/71 143/71 138/69 O2 Sat by Pulse 100 100 100 Oximetry 07/08/17 07/08/17 07/08/17 03:00 03:51 04:00 Temperature 97.7 F Pulse Rate 92 H 90 Pulse Rate [ Anterior Bilateral Throughout] Pulse Rate [ 82 From Monitor] Respiratory 12 12 Rate Respiratory Rate [Anterior Bilateral Throughout] Blood Pressure 133/69 133/67 O2 Sat by Pulse 100 100 Oximetry 07/08/17 07/08/17 07/08/17 04:30 05:00 06:00 Temperature Pulse Rate 94 H 93 H 93 H Pulse Rate [ Anterior Bilateral Throughout] Pulse Rate [ From Monitor] Respiratory 12 13 Rate Respiratory Rate [Anterior Bilateral Throughout] Blood Pressure 133/67 143/71 141/70 O2 Sat by Pulse 100 100 100 Oximetry 07/08/17 07/08/17 07/08/17 07:00 07:51 08:00 Temperature 98.3 F Pulse Rate 93 H 93 H Pulse Rate [ Anterior Bilateral Throughout] Pulse Rate [ 88 From Monitor] Respiratory 13 16 Rate Respiratory Rate [Anterior Bilateral Throughout] Blood Pressure 146/70 147/67 O2 Sat by Pulse 100 100 Oximetry 07/08/17 07/08/17 07/08/17 08:32 08:35 09:00 Temperature Pulse Rate 96 H 97 H Pulse Rate [ 96 H Anterior Bilateral Throughout] Pulse Rate [ From Monitor] Respiratory 13 Rate Respiratory 13 Rate [Anterior Bilateral Throughout] Blood Pressure 147/67 151/74 O2 Sat by Pulse 100 100 Oximetry 07/08/17 07/08/17 07/08/17 09:54 09:55 11:53 Temperature 98.1 F Pulse Rate 100 H 97 H Pulse Rate [ Anterior Bilateral Throughout] Pulse Rate [ From Monitor] Respiratory Rate Respiratory Rate [Anterior Bilateral Throughout] Blood Pressure 151/74 151/74 O2 Sat by Pulse Oximetry - Lab 07/08/17 06:12 07/08/17 06:12 Most recent lab results Calcium 7.8 mg/dL (8.4-10.2) L 07/08/17 06:12 Phosphorus 3.80 mg/dL (2.5-4.5) 07/04/17 14:10 Magnesium 1.80 mg/dL (1.7-2.3) 07/04/17 14:10
--- NOTE | 2017-07-08 14:35 | Progress Note ---
Assessment and Plan Acute Hypoxemic Respiratory Failure on MVS Seizure Disorder s/p Cardiac Arrest ESRD on Dialysis Sepsis Syndrome Hyperosmolar non ketotic state Anemia Leucocytosis Acute Encephalopathy Thrombocytopenia - follow pleural fluid studies (send-outs) - AMS will likely be a rate limiting factor to extubation - continue prn hydralazine and resumed home amlodipine dose (10mg qd) and coreg - keep set rate at 12/min - continue daily PSV trials as tolerated - continue aspiration precautions / addressing VAP bundle daily - continue to wean FiO2 for sats > 94% - continue enteral nutrition as tolerated - continue bronchodilators and pulmonary toilet - continue and adjust AB's per ID recs - continue glycemic control with SSI and levemir (target BG <180mg/dl) - continue GI & VTE prophylaxis - Continue to monitor platelet count while on heparin - continue other care per attending / other consultants - flu and pneumovax addressed per protocol ....34' CCT without overlap Subjective Date of service: 07/08/17 Principal diagnosis: Acute Hypoxemic Resp Failure; S/P Cardiac Arrest; Hyperosmolar Non-ketotic Interval history: Patient is seen today for: Acute Hypoxemic Resp Failure; S/P Cardiac Arrest; Hyperosmolar Non-ketotic Seen and examined at bedside; 24hour events reviewed; nursing and respiratory care staff consulted; no adverse overnight events reported to me; remains on MVS ; AMS is persistent; tolerating PSV albeit tenuously at times; no emesis or overt aspiration and no gross bleeding; tolerating tube feeds Objective Vital Signs - 12hr 07/08/17 07/08/17 07/08/17 03:00 03:51 04:00 Temperature 97.7 F Pulse Rate 92 H 90 Pulse Rate [ Anterior Bilateral Throughout] Pulse Rate [ 82 From Monitor] Respiratory 12 12 Rate Respiratory Rate [Anterior Bilateral Throughout] Blood Pressure 133/69 133/67 O2 Sat by Pulse 100 100 Oximetry 07/08/17 07/08/17 07/08/17 04:30 05:00 06:00 Temperature Pulse Rate 94 H 93 H 93 H Pulse Rate [ Anterior Bilateral Throughout] Pulse Rate [ From Monitor] Respiratory 12 13 Rate Respiratory Rate [Anterior Bilateral Throughout] Blood Pressure 133/67 143/71 141/70 O2 Sat by Pulse 100 100 100 Oximetry 07/08/17 07/08/17 07/08/17 07:00 07:51 08:00 Temperature 98.3 F Pulse Rate 93 H 93 H Pulse Rate [ Anterior Bilateral Throughout] Pulse Rate [ 88 From Monitor] Respiratory 13 16 Rate Respiratory Rate [Anterior Bilateral Throughout] Blood Pressure 146/70 147/67 O2 Sat by Pulse 100 100 Oximetry 07/08/17 07/08/17 07/08/17 08:32 08:35 09:00 Temperature Pulse Rate 96 H 97 H Pulse Rate [ 96 H Anterior Bilateral Throughout] Pulse Rate [ From Monitor] Respiratory 13 Rate Respiratory 13 Rate [Anterior Bilateral Throughout] Blood Pressure 147/67 151/74 O2 Sat by Pulse 100 100 Oximetry 07/08/17 07/08/17 07/08/17 09:54 09:55 10:00 Temperature Pulse Rate 100 H 97 H 97 H Pulse Rate [ Anterior Bilateral Throughout] Pulse Rate [ From Monitor] Respiratory 12 Rate Respiratory Rate [Anterior Bilateral Throughout] Blood Pressure 151/74 151/74 146/73 O2 Sat by Pulse 100 Oximetry 07/08/17 07/08/17 07/08/17 11:00 11:53 12:00 Temperature 98.1 F Pulse Rate 99 H 98 H Pulse Rate [ Anterior Bilateral Throughout] Pulse Rate [ 90 From Monitor] Respiratory 12 12 Rate Respiratory Rate [Anterior Bilateral Throughout] Blood Pressure 147/70 147/70 O2 Sat by Pulse 100 100 Oximetry 07/08/17 13:00 Temperature Pulse Rate 97 H Pulse Rate [ Anterior Bilateral Throughout] Pulse Rate [ From Monitor] Respiratory 12 Rate Respiratory Rate [Anterior Bilateral Throughout] Blood Pressure 134/66 O2 Sat by Pulse 100 Oximetry Constitutional: no acute distress, other (encephalopathic) Eyes: non-icteric ENT: oropharynx moist, other (ETT at 25cm TIKI) Neck: supple, no lymphadenopathy, JVD, other (no thyromegally) Effort: mildly labored Ascultation: Bilateral: diminished breath sounds (bases), rales Percussion: Bilateral: not dull Cardiovascular: regular rate and rhythm, other (no rubs / murmurs) Gastrointestinal: normoactive bowel sounds, soft, non-tender, non-distended, other (no HSM) Integumentary: normal Extremities: no cyanosis, no edema, pulses normal, no ischemia or petechiae Neurologic: pupils equal and round, unable to assess, other (no spontaneous limb movements) Psychiatric: other (unable to assess) CBC and BMP: 07/09/17 05:02 07/09/17 05:02 ABG, PT/INR, D-dimer: ABG POC ABG pH 7.477 (7.35-7.45) H 07/08/17 05:54 POC ABG pCO2 39.0 (35-45) 07/08/17 05:54 POC ABG pO2 118 (80-105) H 07/08/17 05:54 POC ABG HCO3 28.8 07/08/17 05:54 POC ABG Total CO2 30 07/08/17 05:54 POC ABG O2 Sat 99 07/08/17 05:54 PT/INR, D-dimer PT 12.9 Sec. (12.2-14.9) 07/06/17 08:30 INR 0.93 (0.87-1.13) 07/06/17 08:30 Abnormal lab findings: Abnormal Labs 07/02/17 07/02/17 07/02/17 15:03 15:12 17:49 WBC 13.5 H RBC 3.47 L Hgb 9.9 L Hct 33.1 L MCV 96 H MCHC 30 L RDW 15.4 H Plt Count 130 L Lymph % (Auto) [place] % (Auto) Lymph # [place] # Seg Neutrophils % Seg Neuts % (Manual) 95.0 H Lymphocytes % (Manual) 3.0 L Seg Neutrophils # Seg Neutrophils # Man 12.8 H Lymphocytes # (Manual) 0.4 L POC ABG pH POC ABG pCO2 POC ABG pO2 Sodium Potassium Chloride Carbon Dioxide BUN Creatinine Glucose POC Glucose > 500 H Lactic Acid 7.80 H* Calcium Ionized Calcium Alkaline Phosphatase Lactate Dehydrogenase CK-MB (CK-2) Troponin T C-Reactive Protein Total Protein Albumin LDL Cholesterol Direct Salicylates 07/02/17 07/02/17 07/02/17 20:29 21:31 23:38 WBC RBC Hgb Hct MCV MCHC RDW Plt Count Lymph % (Auto) [place] % (Auto) Lymph # [place] # Seg Neutrophils % Seg Neuts % (Manual) Lymphocytes % (Manual) Seg Neutrophils # Seg Neutrophils # Man Lymphocytes # (Manual) POC ABG pH POC ABG pCO2 POC ABG pO2 Sodium 129 L 132 L Potassium Chloride 87.2 L 93.7 L Carbon Dioxide 18 L 15 L BUN 51 H 47 H Creatinine 4.3 H 4.1 H Glucose 950 H* 825 H* POC Glucose Lactic Acid 5.70 H* Calcium 7.1 L 6.8 L Ionized Calcium Alkaline Phosphatase Lactate Dehydrogenase CK-MB (CK-2) Troponin T C-Reactive Protein Total Protein Albumin LDL Cholesterol Direct Salicylates 07/02/17 07/02/17 07/02/17 23:38 23:44 Unknown WBC RBC Hgb Hct MCV MCHC RDW Plt Count Lymph % (Auto) [place] % (Auto) Lymph # [place] # Seg Neutrophils % Seg Neuts % (Manual) Lymphocytes % (Manual) Seg Neutrophils # Seg Neutrophils # Man Lymphocytes # (Manual) POC ABG pH POC ABG pCO2 POC ABG pO2 Sodium 132 L 125 L D Potassium Chloride 94.6 L 85.6 L Carbon Dioxide 17 L 19 L D BUN 51 H 50 H Creatinine 4.1 H 4.4 H D Glucose 772 H* 1113 H* POC Glucose > 500 H Lactic Acid Calcium 6.7 L 7.2 L Ionized Calcium Alkaline Phosphatase 139 H Lactate Dehydrogenase CK-MB (CK-2) Troponin T C-Reactive Protein Total Protein 6.1 L Albumin 3.3 L LDL Cholesterol Direct Salicylates 07/02/17 07/02/17 07/03/17 Unknown Unknown 01:00 WBC RBC Hgb Hct MCV MCHC RDW Plt Count Lymph % (Auto) [place] % (Auto) Lymph # [place] # Seg Neutrophils % Seg Neuts % (Manual) Lymphocytes % (Manual) Seg Neutrophils # Seg Neutrophils # Man Lymphocytes # (Manual) POC ABG pH POC ABG pCO2 POC ABG pO2 Sodium 134 L Potassium Chloride 96.4 L Carbon Dioxide 19 L BUN 50 H Creatinine 4.0 H Glucose 677 H* POC Glucose Lactic Acid 6.30 H* Calcium 6.6 L Ionized Calcium Alkaline Phosphatase Lactate Dehydrogenase CK-MB (CK-2) Troponin T C-Reactive Protein Total Protein Albumin LDL Cholesterol Direct Salicylates < 0.3 L 07/03/17 07/03/17 07/03/17 01:04 02:15 02:15 WBC RBC Hgb Hct MCV MCHC RDW Plt Count Lymph % (Auto) [place] % (Auto) Lymph # [place] # Seg Neutrophils % Seg Neuts % (Manual) Lymphocytes % (Manual) Seg Neutrophils # Seg Neutrophils # Man Lymphocytes # (Manual) POC ABG pH POC ABG pCO2 POC ABG pO2 Sodium 134 L Potassium Chloride 97.6 L Carbon Dioxide 19 L BUN 50 H Creatinine 4.2 H Glucose 592 H* POC Glucose > 500 H Lactic Acid 4.30 H* Calcium 6.6 L Ionized Calcium Alkaline Phosphatase Lactate Dehydrogenase CK-MB (CK-2) Troponin T C-Reactive Protein Total Protein Albumin LDL Cholesterol Direct Salicylates 07/03/17 07/03/17 07/03/17 02:21 03:25 04:10 WBC RBC Hgb Hct MCV MCHC RDW Plt Count Lymph % (Auto) [place] % (Auto) Lymph # [place] # Seg Neutrophils % Seg Neuts % (Manual) Lymphocytes % (Manual) Seg Neutrophils # Seg Neutrophils # Man Lymphocytes # (Manual) POC ABG pH POC ABG pCO2 POC ABG pO2 Sodium Potassium Chloride Carbon Dioxide 19 L BUN 50 H Creatinine 4.0 H Glucose 416 H POC Glucose 482 H > 500 H Lactic Acid Calcium 6.8 L Ionized Calcium Alkaline Phosphatase Lactate Dehydrogenase CK-MB (CK-2) Troponin T C-Reactive Protein Total Protein Albumin LDL Cholesterol Direct Salicylates 07/03/17 07/03/17 07/03/17 04:30 04:36 05:33 WBC RBC Hgb Hct MCV MCHC RDW Plt Count Lymph % (Auto) [place] % (Auto) Lymph # [place] # Seg Neutrophils % Seg Neuts % (Manual) Lymphocytes % (Manual) Seg Neutrophils # Seg Neutrophils # Man Lymphocytes # (Manual) POC ABG pH 7.311 L POC ABG pCO2 33.5 L POC ABG pO2 73 L Sodium Potassium Chloride Carbon Dioxide BUN Creatinine Glucose POC Glucose 389 H 326 H Lactic Acid Calcium Ionized Calcium Alkaline Phosphatase Lactate Dehydrogenase CK-MB (CK-2) Troponin T C-Reactive Protein Total Protein Albumin LDL Cholesterol Direct Salicylates 07/03/17 07/03/17 07/03/17 06:06 07:38 09:58 WBC RBC Hgb Hct MCV MCHC RDW Plt Count Lymph % (Auto) [place] % (Auto) Lymph # [place] # Seg Neutrophils % Seg Neuts % (Manual) Lymphocytes % (Manual) Seg Neutrophils # Seg Neutrophils # Man Lymphocytes # (Manual) POC ABG pH POC ABG pCO2 POC ABG pO2 Sodium Potassium Chloride Carbon Dioxide BUN Creatinine Glucose POC Glucose 247 H 118 H 52 L Lactic Acid Calcium Ionized Calcium Alkaline Phosphatase Lactate Dehydrogenase CK-MB (CK-2) Troponin T C-Reactive Protein Total Protein Albumin LDL Cholesterol Direct Salicylates 1107/03/17 07/03/17 11:00 13:16 15:02 WBC RBC Hgb Hct MCV MCHC RDW Plt Count Lymph % (Auto) [place] % (Auto) Lymph # [place] # Seg Neutrophils % Seg Neuts % (Manual) Lymphocytes % (Manual) Seg Neutrophils # Seg Neutrophils # Man Lymphocytes # (Manual) POC ABG pH POC ABG pCO2 POC ABG pO2 Sodium Potassium Chloride Carbon Dioxide BUN Creatinine Glucose POC Glucose 64 L 112 H 158 H Lactic Acid Calcium Ionized Calcium Alkaline Phosphatase Lactate Dehydrogenase CK-MB (CK-2) Troponin T C-Reactive Protein Total Protein Albumin LDL Cholesterol Direct Salicylates 07/03/17 07/03/17 07/03/17 18:17 Unknown Unknown WBC RBC Hgb Hct MCV MCHC RDW Plt Count Lymph % (Auto) [place] % (Auto) Lymph # [place] # Seg Neutrophils % Seg Neuts % (Manual) Lymphocytes % (Manual) Seg Neutrophils # Seg Neutrophils # Man Lymphocytes # (Manual) POC ABG pH POC ABG pCO2 POC ABG pO2 Sodium Potassium Chloride Carbon Dioxide BUN Creatinine Glucose POC Glucose 131 H Lactic Acid 2.40 H* Calcium Ionized Calcium Alkaline Phosphatase Lactate Dehydrogenase CK-MB (CK-2) Troponin T C-Reactive Protein 1.90 H Total Protein Albumin LDL Cholesterol Direct Salicylates 07/03/17 07/04/17 07/04/17 Unknown 00:13 02:04 WBC RBC Hgb Hct MCV MCHC RDW Plt Count Lymph % (Auto) [place] % (Auto) Lymph # [place] # Seg Neutrophils % Seg Neuts % (Manual) Lymphocytes % (Manual) Seg Neutrophils # Seg Neutrophils # Man Lymphocytes # (Manual) POC ABG pH POC ABG pCO2 POC ABG pO2 Sodium Potassium Chloride Carbon Dioxide BUN 52 H Creatinine 4.3 H Glucose POC Glucose 69 L 111 H Lactic Acid Calcium 7.2 L Ionized Calcium Alkaline Phosphatase Lactate Dehydrogenase CK-MB (CK-2) Troponin T C-Reactive Protein Total Protein Albumin LDL Cholesterol Direct Salicylates 07/04/17 07/04/17 07/04/17 04:38 08:00 08:00 WBC 28.3 H RBC 3.55 L Hgb 10.3 L Hct 31.2 L MCV MCHC RDW 15.3 H Plt Count 101 L Lymph % (Auto) [place] % (Auto) Lymph # [place] # Seg Neutrophils % Seg Neuts % (Manual) Lymphocytes % (Manual) Seg Neutrophils # Seg Neutrophils # Man Lymphocytes # (Manual) POC ABG pH POC ABG pCO2 27.6 L POC ABG pO2 Sodium Potassium Chloride Carbon Dioxide 20 L BUN 62 H Creatinine 4.7 H Glucose POC Glucose Lactic Acid Calcium 7.0 L Ionized Calcium Alkaline Phosphatase Lactate Dehydrogenase CK-MB (CK-2) Troponin T C-Reactive Protein Total Protein Albumin LDL Cholesterol Direct Salicylates 07/04/17 07/04/17 07/04/17 14:10 14:10 14:33 WBC RBC Hgb Hct MCV MCHC RDW Plt Count Lymph % (Auto) [place] % (Auto) Lymph # [place] # Seg Neutrophils % Seg Neuts % (Manual) Lymphocytes % (Manual) Seg Neutrophils # Seg Neutrophils # Man Lymphocytes # (Manual) POC ABG pH 7.474 H POC ABG pCO2 29.4 L POC ABG pO2 Sodium Potassium Chloride Carbon Dioxide BUN Creatinine Glucose POC Glucose Lactic Acid Calcium Ionized Calcium 4.6 L Alkaline Phosphatase Lactate Dehydrogenase CK-MB (CK-2) 4.3 H Troponin T 0.282 H* C-Reactive Protein Total Protein Albumin LDL Cholesterol Direct 22 L Salicylates 07/04/17 07/04/17 07/04/17 17:26 20:40 23:34 WBC RBC Hgb Hct MCV MCHC RDW Plt Count Lymph % (Auto) [place] % (Auto) Lymph # [place] # Seg Neutrophils % Seg Neuts % (Manual) Lymphocytes % (Manual) Seg Neutrophils # Seg Neutrophils # Man Lymphocytes # (Manual) POC ABG pH POC ABG pCO2 POC ABG pO2 Sodium Potassium Chloride Carbon Dioxide BUN Creatinine Glucose POC Glucose 201 H 188 H Lactic Acid Calcium Ionized Calcium Alkaline Phosphatase Lactate Dehydrogenase CK-MB (CK-2) Troponin T 0.276 H* C-Reactive Protein Total Protein Albumin LDL Cholesterol Direct Salicylates 07/05/17 07/05/17 07/05/17 05:42 07:50 11:52 WBC RBC Hgb Hct MCV MCHC RDW Plt Count Lymph % (Auto) [place] % (Auto) Lymph # [place] # Seg Neutrophils % Seg Neuts % (Manual) Lymphocytes % (Manual) Seg Neutrophils # Seg Neutrophils # Man Lymphocytes # (Manual) POC ABG pH POC ABG pCO2 POC ABG pO2 117 H Sodium Potassium Chloride Carbon Dioxide BUN Creatinine Glucose POC Glucose 126 H 110 H Lactic Acid Calcium Ionized Calcium Alkaline Phosphatase Lactate Dehydrogenase CK-MB (CK-2) Troponin T C-Reactive Protein Total Protein Albumin LDL Cholesterol Direct Salicylates 07/05/17 07/05/17 07/05/17 12:40 17:51 18:12 WBC RBC Hgb Hct MCV MCHC RDW Plt Count Lymph % (Auto) [place] % (Auto) Lymph # [place] # Seg Neutrophils % Seg Neuts % (Manual) Lymphocytes % (Manual) Seg Neutrophils # Seg Neutrophils # Man Lymphocytes # (Manual) POC ABG pH POC ABG pCO2 POC ABG pO2 Sodium Potassium Chloride Carbon Dioxide BUN Creatinine Glucose POC Glucose 57 L 69 L Lactic Acid Calcium Ionized Calcium Alkaline Phosphatase Lactate Dehydrogenase CK-MB (CK-2) Troponin T 0.277 H* C-Reactive Protein Total Protein Albumin LDL Cholesterol Direct Salicylates 07/05/17 07/05/17 07/05/17 Unknown Unknown Unknown WBC 22.2 H RBC 3.24 L Hgb 9.7 L Hct 28.6 L MCV MCHC RDW Plt Count 89 L Lymph % (Auto) [place] % (Auto) Lymph # [place] # Seg Neutrophils % Seg Neuts % (Manual) 89.0 H Lymphocytes % (Manual) 7.0 L Seg Neutrophils # Seg Neutrophils # Man 19.8 H Lymphocytes # (Manual) POC ABG pH POC ABG pCO2 POC ABG pO2 Sodium Potassium 3.5 L Chloride Carbon Dioxide BUN 37 H Creatinine 3.1 H Glucose 120 H POC Glucose Lactic Acid 2.30 H* Calcium 7.7 L Ionized Calcium Alkaline Phosphatase Lactate Dehydrogenase CK-MB (CK-2) Troponin T C-Reactive Protein Total Protein Albumin LDL Cholesterol Direct Salicylates 07/05/17 07/06/17 07/06/17 Unknown 03:25 03:25 WBC 17.7 H RBC 3.14 L Hgb 9.3 L Hct 27.8 L MCV MCHC RDW 15.7 H Plt Count 82 L Lymph % (Auto) 2.5 L [place] % (Auto) Lymph # 0.4 L [place] # 1.1 H Seg Neutrophils % 90.0 H Seg Neuts % (Manual) Lymphocytes % (Manual) Seg Neutrophils # 15.9 H Seg Neutrophils # Man Lymphocytes # (Manual) POC ABG pH POC ABG pCO2 POC ABG pO2 Sodium Potassium 3.3 L Chloride Carbon Dioxide BUN 44 H Creatinine 3.6 H Glucose 132 H POC Glucose Lactic Acid Calcium 7.4 L Ionized Calcium Alkaline Phosphatase Lactate Dehydrogenase CK-MB (CK-2) Troponin T C-Reactive Protein 9.90 H Total Protein Albumin LDL Cholesterol Direct Salicylates 07/06/17 07/06/17 07/06/17 04:19 05:24 08:30 WBC RBC Hgb Hct MCV MCHC RDW Plt Count Lymph % (Auto) [place] % (Auto) Lymph # [place] # Seg Neutrophils % Seg Neuts % (Manual) Lymphocytes % (Manual) Seg Neutrophils # Seg Neutrophils # Man Lymphocytes # (Manual) POC ABG pH POC ABG pCO2 34.3 L POC ABG pO2 Sodium Potassium Chloride Carbon Dioxide BUN Creatinine Glucose POC Glucose 174 H Lactic Acid Calcium Ionized Calcium Alkaline Phosphatase Lactate Dehydrogenase 880 H CK-MB (CK-2) Troponin T C-Reactive Protein Total Protein 4.9 L Albumin LDL Cholesterol Direct Salicylates 07/06/17 07/06/17 07/06/17 11:13 17:14 23:38 WBC RBC Hgb Hct MCV MCHC RDW Plt Count Lymph % (Auto) [place] % (Auto) Lymph # [place] # Seg Neutrophils % Seg Neuts % (Manual) Lymphocytes % (Manual) Seg Neutrophils # Seg Neutrophils # Man Lymphocytes # (Manual) POC ABG pH POC ABG pCO2 POC ABG pO2 Sodium Potassium Chloride Carbon Dioxide BUN Creatinine Glucose POC Glucose 216 H 211 H 122 H Lactic Acid Calcium Ionized Calcium Alkaline Phosphatase Lactate Dehydrogenase CK-MB (CK-2) Troponin T C-Reactive Protein Total Protein Albumin LDL Cholesterol Direct Salicylates 07/07/17 07/07/17 07/07/17 04:38 05:00 05:00 WBC 16.1 H RBC 3.00 L Hgb 8.9 L Hct 26.6 L MCV MCHC RDW 15.6 H Plt Count 106 L Lymph % (Auto) 4.1 L [place] % (Auto) 8.0 H Lymph # 0.7 L [place] # 1.3 H Seg Neutrophils % 86.6 H Seg Neuts % (Manual) Lymphocytes % (Manual) Seg Neutrophils # 13.9 H Seg Neutrophils # Man Lymphocytes # (Manual) POC ABG pH 7.455 H POC ABG pCO2 POC ABG pO2 134 H Sodium Potassium Chloride Carbon Dioxide BUN 30 H Creatinine 2.8 H Glucose 188 H POC Glucose Lactic Acid Calcium 7.9 L Ionized Calcium Alkaline Phosphatase Lactate Dehydrogenase CK-MB (CK-2) Troponin T C-Reactive Protein Total Protein Albumin LDL Cholesterol Direct Salicylates 07/07/17 07/07/17 07/07/17 05:17 11:33 16:04 WBC RBC Hgb Hct MCV MCHC RDW Plt Count Lymph % (Auto) [place] % (Auto) Lymph # [place] # Seg Neutrophils % Seg Neuts % (Manual) Lymphocytes % (Manual) Seg Neutrophils # Seg Neutrophils # Man Lymphocytes # (Manual) POC ABG pH POC ABG pCO2 POC ABG pO2 126 H Sodium Potassium Chloride Carbon Dioxide BUN Creatinine Glucose POC Glucose 189 H 275 H Lactic Acid Calcium Ionized Calcium Alkaline Phosphatase Lactate Dehydrogenase CK-MB (CK-2) Troponin T C-Reactive Protein Total Protein Albumin LDL Cholesterol Direct Salicylates 07/07/17 07/07/17 07/08/17 17:08 23:45 05:30 WBC RBC Hgb Hct MCV MCHC RDW Plt Count Lymph % (Auto) [place] % (Auto) Lymph # [place] # Seg Neutrophils % Seg Neuts % (Manual) Lymphocytes % (Manual) Seg Neutrophils # Seg Neutrophils # Man Lymphocytes # (Manual) POC ABG pH POC ABG pCO2 POC ABG pO2 Sodium Potassium Chloride Carbon Dioxide BUN Creatinine Glucose POC Glucose 241 H 118 H 199 H Lactic Acid Calcium Ionized Calcium Alkaline Phosphatase Lactate Dehydrogenase CK-MB (CK-2) Troponin T C-Reactive Protein Total Protein Albumin LDL Cholesterol Direct Salicylates 07/08/17 07/08/17 07/08/17 05:54 06:12 06:12 WBC 17.0 H RBC 3.27 L Hgb 9.5 L Hct 29.1 L MCV MCHC RDW 15.6 H Plt Count 133 L Lymph % (Auto) 4.6 L [place] % (Auto) 9.2 H Lymph # 0.8 L [place] # 1.6 H Seg Neutrophils % 83.9 H Seg Neuts % (Manual) Lymphocytes % (Manual) Seg Neutrophils # 14.3 H Seg Neutrophils # Man Lymphocytes # (Manual) POC ABG pH 7.477 H POC ABG pCO2 POC ABG pO2 118 H Sodium Potassium Chloride Carbon Dioxide BUN 44 H Creatinine 3.4 H Glucose 190 H POC Glucose Lactic Acid Calcium 7.8 L Ionized Calcium Alkaline Phosphatase Lactate Dehydrogenase CK-MB (CK-2) Troponin T C-Reactive Protein Total Protein Albumin LDL Cholesterol Direct Salicylates 07/08/17 11:37 WBC RBC Hgb Hct MCV MCHC RDW Plt Count Lymph % (Auto) [place] % (Auto) Lymph # [place] # Seg Neutrophils % Seg Neuts % (Manual) Lymphocytes % (Manual) Seg Neutrophils # Seg Neutrophils # Man Lymphocytes # (Manual) POC ABG pH POC ABG pCO2 POC ABG pO2 Sodium Potassium Chloride Carbon Dioxide BUN Creatinine Glucose POC Glucose 236 H Lactic Acid Calcium Ionized Calcium Alkaline Phosphatase Lactate Dehydrogenase CK-MB (CK-2) Troponin T C-Reactive Protein Total Protein Albumin LDL Cholesterol Direct Salicylates Chest x-ray: image reviewed (improved right pleural effusion; no post thoracentesis pneumothorax) Allied health notes reviewed: nursing
--- NOTE | 2017-07-08 14:52 | Gastroenterology Progress Note ---
Assessment and Plan Anemia/heme + stool - H/H stable, no signs of overt bleeding. cont PPI BID dosing. hold off on endoscopy unless signs of overt bleeding/change in clinical course. will sign off, call back as needed or with questions. should have eventual anemia work-up when medically stable unless urgently needed as above. Subjective Date of service: 07/08/17 Principal diagnosis: Acute Hypoxemic Resp Failure; S/P Cardiac Arrest; Hyperosmolar Non-ketotic Interval history: pt seen and examined. no events overnight. remains intubated and unable to obtain history Objective - Exam Narrative Exam: Gen: intubated/sedated CV: RRR Lungs: coarse bilateral bs, on vent Abd: soft, nd, +bs Rectal: dark brown stool in FMS - Constitutional Vitals: Temp Pulse Resp BP Pulse Ox 98.1 F 104 H 9 L 139/70 100 07/08/17 11:53 07/08/17 14:00 07/08/17 14:00 07/08/17 14:00 07/08/17 14:00 - Labs CBC & Chem 7: 07/08/17 06:12 07/08/17 06:12 Labs: Laboratory Results - last 24 hr 07/07/17 07/07/17 07/07/17 16:04 17:08 23:45 WBC RBC Hgb Hct MCV MCH MCHC RDW Plt Count Lymph % (Auto) [place] % (Auto) Eos % (Auto) Baso % (Auto) Lymph # [place] # Eos # Baso # Seg Neutrophils % Seg Neutrophils # POC ABG pH 7.424 POC ABG pCO2 38.9 POC ABG pO2 126 H POC ABG HCO3 25.5 POC ABG Total CO2 27 POC ABG O2 Sat 99 POC ABG Base Excess 1 FiO2 28 Sodium Potassium Chloride Carbon Dioxide Anion Gap BUN Creatinine Estimated GFR BUN/Creatinine Ratio Glucose POC Glucose 241 H 118 H Calcium 07/08/17 07/08/17 07/08/17 05:30 05:54 06:12 WBC 17.0 H RBC 3.27 L Hgb 9.5 L Hct 29.1 L MCV 89 MCH 29 MCHC 33 RDW 15.6 H Plt Count 133 L Lymph % (Auto) 4.6 L [place] % (Auto) 9.2 H Eos % (Auto) 1.9 Baso % (Auto) 0.4 Lymph # 0.8 L [place] # 1.6 H Eos # 0.3 Baso # 0.1 Seg Neutrophils % 83.9 H Seg Neutrophils # 14.3 H POC ABG pH 7.477 H POC ABG pCO2 39.0 POC ABG pO2 118 H POC ABG HCO3 28.8 POC ABG Total CO2 30 POC ABG O2 Sat 99 POC ABG Base Excess 5 FiO2 28 Sodium Potassium Chloride Carbon Dioxide Anion Gap BUN Creatinine Estimated GFR BUN/Creatinine Ratio Glucose POC Glucose 199 H Calcium 07/08/17 07/08/17 06:12 11:37 WBC RBC Hgb Hct MCV MCH MCHC RDW Plt Count Lymph % (Auto) [place] % (Auto) Eos % (Auto) Baso % (Auto) Lymph # [place] # Eos # Baso # Seg Neutrophils % Seg Neutrophils # POC ABG pH POC ABG pCO2 POC ABG pO2 POC ABG HCO3 POC ABG Total CO2 POC ABG O2 Sat POC ABG Base Excess FiO2 Sodium 141 Potassium 3.8 Chloride 103.3 Carbon Dioxide 25 Anion Gap 17 BUN 44 H Creatinine 3.4 H Estimated GFR 21 BUN/Creatinine Ratio 13 Glucose 190 H POC Glucose 236 H Calcium 7.8 L
[2017-07-09] MEDS: NOVOLOG SUB-Q SCH ×4 (01:00→19:14)
[2017-07-09 05:24] LABS: Basophils % (Auto) 0.2 % (0.0-1.8); Eosinophils % (Auto) 1.6 % (0.0-4.3); Hematocrit 25.6 % (35.5-45.6); Hemoglobin 8.5 gm/dl (11.8-15.2); Mean Corpuscular HGB Conc 33 % (32-34); Mean Corpuscular Hemoglobin 30 pg (28-32); Mean Corpuscular Volume 89 fl (84-94); Platelet Count 153 K/mm3 (140-440); Red Blood Count 2.88 M/mm3 (3.65-5.03); Red Cell Distribution Width 15.5 % (13.2-15.2); White Blood Count 17.8 K/mm3 (4.5-11.0)
[2017-07-09 05:25] LABS: ISTAT Base Excess 1; ISTAT HCO3 24.8; ISTAT PH 7.435 (7.35-7.45); ISTAT PO2 132 (80-105); ISTAT SO2 99; ISTAT TCO2 26
[2017-07-09 05:45] LABS: Calcium 7.6 mg/dL (8.4-10.2); Chloride 102.5 mmol/L (98-107); Potassium 3.8 mmol/L (3.6-5.0)
[2017-07-09] MEDS: FLAGYL 500 MG/100 ML 500 MG/100 ML BAG IV SCH (06:13)
--- NOTE | 2017-07-09 07:26 | XRay Report ---
AP CHEST: HISTORY: Followup respiratory failure Lines and support devices remain in good position. Bibasilar atelectasis has resolved since yesterday's exam. The lungs are clear. Heart and mediastinal structures are within normal limits. IMPRESSION: Unremarkable AP chest.
[2017-07-09] MEDS: DUONEB *Not for PRN Use IH SCH ×3 (08:49→23:26)
--- NOTE | 2017-07-09 09:55 | Progress Note ---
Assessment and Plan Assessment: S/p cardiopulmonary arrest - PEA in ED; intubated; currently in SR on tele with no arrhythmias noted on tele since ICU admission NSTEMI type II - flat; repeat EKG with no acute ischemic changes. AMS - ? anoxic brain injury; head CT with NAF DKA Seizure d/o - EEG pending HTN DM / Hyperosmolar non ketotic state Lactic acidosis / leukocytosis / ? sepsis Hyponatremia - improved Anemia Thrombocytopenia - improving Plan: Echo reviewed - EF 45-50%, mild to mod LVH, abnormal LV diastolic function, large pleural effusion. Cont present cardiac regimen. Cont supportive management. Plan for ischemic evaluation once medically stabilized. The patient has been seen in conjunction with Dr. Artis who agrees with the assessment and plan of care. Subjective Date of service: 07/09/17 Principal diagnosis: Acute Hypoxemic Resp Failure; S/P Cardiac Arrest; Hyperosmolar Non-ketotic Interval history: pt remains intubated, eyes open, no purposeful responses noted, off pressors. Objective Last Vital Signs Temp 98.6 F 07/09/17 08:00 Pulse 101 H 07/09/17 08:57 Resp 14 07/09/17 08:57 BP 142/72 07/09/17 08:00 Pulse Ox 100 07/09/17 08:00 - Physical Examination General: Other (intubated, unresponsive) HEENT: Positive: PERRL Neck: Positive: neck supple Cardiac: Positive: Reg Rate and Rhythm, S1/S2 Lungs: Positive: Decreased Breath Sounds Neuro: Positive: Other (intubated, unresponsive) Abdomen: Positive: Active Bowel Sounds Skin: Positive: Clear. Negative: Rash, Wound Musculoskeletal: No Fluid Collection, No Pain, Normal Range of Motion Extremities: Absent: edema - Labs and Meds CBC 07/09/17 Range/Units 05:02 WBC 17.8 H (4.5-11.0) K/mm3 RBC 2.88 L (3.65-5.03) M/mm3 Hgb 8.5 L (11.8-15.2) gm/dl Hct 25.6 L (35.5-45.6) % Plt Count 153 (140-440) K/mm3 Lymph # 0.8 L (1.2-5.4) K/mm3 [place] # 1.8 H (0.0-0.8) K/mm3 Eos # 0.3 (0.0-0.4) K/mm3 Baso # 0.0 (0.0-0.1) K/mm3 Comprehensive Metabolic Panel 07/09/17 Range/Units 05:02 Sodium 141 (137-145) mmol/L Potassium 3.8 (3.6-5.0) mmol/L Chloride 102.5 (98-107) mmol/L Carbon Dioxide 25 (22-30) mmol/L BUN 61 H (9-20) mg/dL Creatinine 4.0 H (0.8-1.5) mg/dL Glucose 183 H (75-100) mg/dL Calcium 7.6 L (8.4-10.2) mg/dL - Imaging and Cardiology EKG: report reviewed, image reviewed Echo: report reviewed (06/27/2017 showed EF 50-55%, mild LVH, impaired relaxation , RA mildly dilated, mild MR, mild pulm HTN with RVSP 45mmHg, moderate pleural fluid) - Telemetry EKG Rhythm: Sinus Rhythm - EKG Sinus rhythms and dysrhythmias: sinus rhythm AV and intraventricular conduction: right bundle branch block - Allied health notes Allied health notes reviewed: nursing
--- NOTE | 2017-07-09 10:00 | Progress Note ---
Assessment and Plan Impression: * End stage renal disease on HD * Cardiac arrest * Acute hypoxic respiratory failure on mechanical ventilation * Seizure disorder, new onset * Sepsis * DM s/p DKA Plan: * Hemodialysis MWF schedule * UF as tolerated. Ca bath adjusted * Vent management per Pulm/CCM * Empiric abx * Neuro work up in progress * Adjust medications for renal function Subjective Date of service: 07/09/17 Principal diagnosis: Acute Hypoxemic Resp Failure; S/P Cardiac Arrest; Hyperosmolar Non-ketotic Interval history: resting in bed today Objective - Exam Narrative Exam: General appearance: intubated EENT: ATNC, other (ETT in place) Respiratory: Present: Other (coarse breath sounds) Cardiology: regular, S1S2 Gastrointestinal: no tenderness, no distended Integumentary: no rash Neurologic: other (does not respond to tactile/verbal stimuli) Musculoskeletal: prevertebral tenderness, other (no edema) - Vital Signs Vital signs: Vital Signs - 12hr 07/08/17 07/08/17 07/08/17 23:00 23:30 23:32 Temperature 98.1 F Pulse Rate 95 H 96 H Pulse Rate [ Anterior Bilateral Throughout] Pulse Rate [ From Monitor] Respiratory 11 L Rate Respiratory Rate [Anterior Bilateral Throughout] Blood Pressure 137/65 137/65 O2 Sat by Pulse 100 100 Oximetry 07/08/17 07/08/17 07/09/17 23:34 23:49 00:00 Temperature Pulse Rate 98 H Pulse Rate [ 96 H 98 H Anterior Bilateral Throughout] Pulse Rate [ From Monitor] Respiratory 14 Rate Respiratory 13 13 Rate [Anterior Bilateral Throughout] Blood Pressure 133/72 O2 Sat by Pulse 100 Oximetry 07/09/17 07/09/17 07/09/17 01:00 02:00 03:00 Temperature Pulse Rate 99 H 95 H 100 H Pulse Rate [ Anterior Bilateral Throughout] Pulse Rate [ From Monitor] Respiratory 13 10 L 11 L Rate Respiratory Rate [Anterior Bilateral Throughout] Blood Pressure 138/68 126/60 133/69 O2 Sat by Pulse 100 100 100 Oximetry 07/09/17 07/09/17 07/09/17 03:50 04:00 04:20 Temperature 98.6 F Pulse Rate 105 H 102 H Pulse Rate [ Anterior Bilateral Throughout] Pulse Rate [ From Monitor] Respiratory 12 Rate Respiratory Rate [Anterior Bilateral Throughout] Blood Pressure 130/70 130/70 O2 Sat by Pulse 100 100 Oximetry 07/09/17 07/09/17 07/09/17 05:00 06:00 07:00 Temperature Pulse Rate 104 H 101 H 100 H Pulse Rate [ Anterior Bilateral Throughout] Pulse Rate [ From Monitor] Respiratory 13 13 12 Rate Respiratory Rate [Anterior Bilateral Throughout] Blood Pressure 146/77 139/68 139/70 O2 Sat by Pulse 100 100 100 Oximetry 07/09/17 07/09/17 07/09/17 07:53 08:00 08:51 Temperature 98.6 F Pulse Rate 98 H 99 H Pulse Rate [ 100 H Anterior Bilateral Throughout] Pulse Rate [ 99 H From Monitor] Respiratory 13 11 L Rate Respiratory 14 Rate [Anterior Bilateral Throughout] Blood Pressure 139/70 142/72 O2 Sat by Pulse 99 100 Oximetry 07/09/17 08:57 Temperature Pulse Rate Pulse Rate [ 101 H Anterior Bilateral Throughout] Pulse Rate [ From Monitor] Respiratory Rate Respiratory 14 Rate [Anterior Bilateral Throughout] Blood Pressure O2 Sat by Pulse Oximetry - Lab 07/09/17 05:02 07/09/17 05:02 Most recent lab results Calcium 7.6 mg/dL (8.4-10.2) L 07/09/17 05:02 Phosphorus 3.80 mg/dL (2.5-4.5) 07/04/17 14:10 Magnesium 1.80 mg/dL (1.7-2.3) 07/04/17 14:10
[2017-07-09] MEDS: NORVASC PO SCH (10:28)
[2017-07-09] MEDS: THERAGRAN-M Tab PO SCH (10:28)
[2017-07-09] MEDS: ASPIRIN PO SCH (10:29)
[2017-07-09] MEDS: FERROUS SULFATE PO SCH ×2 (10:29→21:35)
[2017-07-09] MEDS: PEPCID PO SCH (10:29)
[2017-07-09] MEDS: COREG PO SCH ×2 (10:30→21:35)
[2017-07-09] MEDS: ROCALTROL PO SCH (10:30)
[2017-07-09] MEDS: FOLVITE PO SCH (10:31)
[2017-07-09] MEDS: LEVEMIR SUB-Q SCH (10:31)
--- NOTE | 2017-07-09 10:32 | Progress Note ---
Assessment and Plan Assessment: 1) Shock after cardiac arrest (? cardiogenic ?hypovolemic ?septic): shock resolved. Still leukocytosis. Septic component etiology unclear ? colitis ?. CRP=9 2) Seizures ? 3) DM-uncontrolled with DKA 4) ESRD on HD 5) Anemia / thrombocytopenia 6) Bloody Diarrhea versus melena ? colitis ?GI bleed. Hemo-occult + Plan: -Abd CT in view persistent leukocytosis -follow-up procalcitonin -continue flagyl IV/ PO day 4 of 10 -contact isolation Thank you Dr Moore for your consultation, will follow up with you. Laura Crocker MD Infectious Diseases Specialist [facility] ([facility]) M [phone] O [phone] Subjective Date of service: 07/09/17 Principal diagnosis: Acute Hypoxemic Resp Failure; S/P Cardiac Arrest; Hyperosmolar Non-ketotic Interval history: Remains on the vent, on CPAP, opens eyes not tracking, +T feeds + minimal black loose stools on flexiseal. underwent right thoracentesis on 07/06 Microbiology: Blood cultures: 07/02 ngtd Urine cultures: Respiratory cultures: 07/02 Sandra Pleural fluid 07/06: ngtd Current Antimicrobials: metronidazole 07/06 Previous Antimicrobials: Zosyn 07/02 Vanco 07/02 Objective - Exam Narrative Exam: General appearance: sedated on the vent Eyes: anicteric sclerae, moist conjunctivae; no lid-lag; PERRLA HENT: Atraumatic; oropharynx +ETT +NGT Neck: Trachea midline; supple, no thyromegaly or lymphadenopathy Lungs: CTA, CV: tachy Abdomen: Soft, non-tender Extremities: peripheral edema Skin: Normal temperature, turgor and texture; no rash, ulcers or subcutaneous nodules Psych: unable to eval . Neuro: unable to eval Lines: right IJ HD - Constitutional Vitals: Vital Signs Temp Pulse Resp BP Pulse Ox 98.6 F 101 H 14 142/72 100 07/09/17 08:00 07/09/17 08:57 07/09/17 08:57 07/09/17 08:00 07/09/17 08:00 Temperature -Last 24 Hours Temperature 98.6 F Temperature 98.6 F Temperature 98.1 F Temperature 98.8 F Temperature 98.5 F Temperature 98.1 F - Labs CBC & Chem 7: 07/09/17 05:02 07/09/17 05:02 Labs: Abnormal lab results 07/08/17 07/08/17 07/08/17 Range/Units 11:37 17:21 23:09 WBC (4.5-11.0) K/mm3 RBC (3.65-5.03) M/mm3 Hgb (11.8-15.2) gm/dl Hct (35.5-45.6) % RDW (13.2-15.2) % Lymph % (Auto) (13.4-35.0) % [place] % (Auto) (0.0-7.3) % Lymph # (1.2-5.4) K/mm3 [place] # (0.0-0.8) K/mm3 Seg Neutrophils % (40.0-70.0) % Seg Neutrophils # (1.8-7.7) K/mm3 POC ABG pO2 (80-105) BUN (9-20) mg/dL Creatinine (0.8-1.5) mg/dL Glucose (75-100) mg/dL POC Glucose 236 H 186 H 203 H (70-105) Calcium (8.4-10.2) mg/dL 07/09/17 07/09/17 07/09/17 Range/Units 04:27 05:02 05:02 WBC 17.8 H (4.5-11.0) K/mm3 RBC 2.88 L (3.65-5.03) M/mm3 Hgb 8.5 L (11.8-15.2) gm/dl Hct 25.6 L (35.5-45.6) % RDW 15.5 H (13.2-15.2) % Lymph % (Auto) 4.6 L (13.4-35.0) % [place] % (Auto) 10.2 H (0.0-7.3) % Lymph # 0.8 L (1.2-5.4) K/mm3 [place] # 1.8 H (0.0-0.8) K/mm3 Seg Neutrophils % 83.4 H (40.0-70.0) % Seg Neutrophils # 14.8 H (1.8-7.7) K/mm3 POC ABG pO2 132 H (80-105) BUN 61 H (9-20) mg/dL Creatinine 4.0 H (0.8-1.5) mg/dL Glucose 183 H (75-100) mg/dL POC Glucose (70-105) Calcium 7.6 L (8.4-10.2) mg/dL 07/09/17 Range/Units 05:33 WBC (4.5-11.0) K/mm3 RBC (3.65-5.03) M/mm3 Hgb (11.8-15.2) gm/dl Hct (35.5-45.6) % RDW (13.2-15.2) % Lymph % (Auto) (13.4-35.0) % [place] % (Auto) (0.0-7.3) % Lymph # (1.2-5.4) K/mm3 [place] # (0.0-0.8) K/mm3 Seg Neutrophils % (40.0-70.0) % Seg Neutrophils # (1.8-7.7) K/mm3 POC ABG pO2 (80-105) BUN (9-20) mg/dL Creatinine (0.8-1.5) mg/dL Glucose (75-100) mg/dL POC Glucose 177 H (70-105) Calcium (8.4-10.2) mg/dL
--- NOTE | 2017-07-09 10:53 | Progress Note ---
Assessment and Plan Acute Hypoxemic Respiratory Failure on MVS Seizure Disorder s/p Cardiac Arrest ESRD on Dialysis Sepsis Syndrome Hyperosmolar non ketotic state Anemia Leucocytosis Acute Encephalopathy Thrombocytopenia - follow pleural fluid studies (send-outs) - AMS still a rate limiting factor to safe extubation - continue prn hydralazine and resumed home amlodipine dose (10mg qd) and coreg - keep set rate at 12/min - continue daily PSV trials as tolerated - continue aspiration precautions / addressing VAP bundle daily - continue to wean FiO2 for sats > 94% - continue enteral nutrition as tolerated - continue bronchodilators and pulmonary toilet - continue and adjust AB's per ID recs - continue glycemic control with SSI and levemir (target BG <180mg/dl) - continue GI & VTE prophylaxis - Continue to monitor platelet count while on heparin - continue other care per attending / other consultants - flu and pneumovax addressed per protocol ...the hope is that as sepsis resolves mental status will improve but that has not borne out so far ....34' CCT without overlap Subjective Date of service: 07/09/17 Principal diagnosis: Acute Hypoxemic Resp Failure; S/P Cardiac Arrest; Hyperosmolar Non-ketotic Interval history: Patient is seen today for: Acute Hypoxemic Resp Failure; S/P Cardiac Arrest; Hyperosmolar Non-ketotic Seen and examined at bedside; 24hour events reviewed; nursing and respiratory care staff consulted; no adverse overnight events reported to me; remains on MVS ; tolerating PSV well however AMS is persistent; No emesis or overt aspiration; tolerating dialysis Objective Vital Signs - 12hr 07/08/17 07/08/17 07/08/17 23:00 23:30 23:32 Temperature 98.1 F Pulse Rate 95 H 96 H Pulse Rate [ Anterior Bilateral Throughout] Pulse Rate [ From Monitor] Respiratory 11 L Rate Respiratory Rate [Anterior Bilateral Throughout] Blood Pressure 137/65 137/65 O2 Sat by Pulse 100 100 Oximetry 07/08/17 07/08/17 07/09/17 23:34 23:49 00:00 Temperature Pulse Rate 98 H Pulse Rate [ 96 H 98 H Anterior Bilateral Throughout] Pulse Rate [ From Monitor] Respiratory 14 Rate Respiratory 13 13 Rate [Anterior Bilateral Throughout] Blood Pressure 133/72 O2 Sat by Pulse 100 Oximetry 07/09/17 07/09/17 07/09/17 01:00 02:00 03:00 Temperature Pulse Rate 99 H 95 H 100 H Pulse Rate [ Anterior Bilateral Throughout] Pulse Rate [ From Monitor] Respiratory 13 10 L 11 L Rate Respiratory Rate [Anterior Bilateral Throughout] Blood Pressure 138/68 126/60 133/69 O2 Sat by Pulse 100 100 100 Oximetry 07/09/17 07/09/17 07/09/17 03:50 04:00 04:20 Temperature 98.6 F Pulse Rate 105 H 102 H Pulse Rate [ Anterior Bilateral Throughout] Pulse Rate [ From Monitor] Respiratory 12 Rate Respiratory Rate [Anterior Bilateral Throughout] Blood Pressure 130/70 130/70 O2 Sat by Pulse 100 100 Oximetry 07/09/17 07/09/17 07/09/17 05:00 06:00 07:00 Temperature Pulse Rate 104 H 101 H 100 H Pulse Rate [ Anterior Bilateral Throughout] Pulse Rate [ From Monitor] Respiratory 13 13 12 Rate Respiratory Rate [Anterior Bilateral Throughout] Blood Pressure 146/77 139/68 139/70 O2 Sat by Pulse 100 100 100 Oximetry 07/09/17 07/09/17 07/09/17 07:53 08:00 08:51 Temperature 98.6 F Pulse Rate 98 H 99 H Pulse Rate [ 100 H Anterior Bilateral Throughout] Pulse Rate [ 99 H From Monitor] Respiratory 13 11 L Rate Respiratory 14 Rate [Anterior Bilateral Throughout] Blood Pressure 139/70 142/72 O2 Sat by Pulse 99 100 Oximetry 07/09/17 07/09/17 07/09/17 08:57 10:28 10:30 Temperature Pulse Rate 103 H 102 H Pulse Rate [ 101 H Anterior Bilateral Throughout] Pulse Rate [ From Monitor] Respiratory Rate Respiratory 14 Rate [Anterior Bilateral Throughout] Blood Pressure 146/72 147/69 O2 Sat by Pulse Oximetry Constitutional: no acute distress, other (encephalopathic) Eyes: non-icteric ENT: oropharynx moist, other (ETT at 25cm TIKI) Neck: supple, no lymphadenopathy, JVD, other (no thyromegally) Effort: mildly labored Ascultation: Bilateral: diminished breath sounds (bases), rales Percussion: Bilateral: not dull Cardiovascular: regular rate and rhythm, other (no rubs / murmurs) Gastrointestinal: normoactive bowel sounds, soft, non-tender, non-distended, other (no HSM) Integumentary: normal Extremities: no cyanosis, no edema, pulses normal, no ischemia or petechiae Neurologic: pupils equal and round, unable to assess, other (no spontaneous limb movements) Psychiatric: other (unable to assess) CBC and BMP: 07/12/17 04:37 07/12/17 04:37 ABG, PT/INR, D-dimer: ABG POC ABG pH 7.435 (7.35-7.45) 07/09/17 04:27 POC ABG pCO2 37.0 (35-45) 07/09/17 04:27 POC ABG pO2 132 (80-105) H 07/09/17 04:27 POC ABG HCO3 24.8 07/09/17 04:27 POC ABG Total CO2 26 07/09/17 04:27 POC ABG O2 Sat 99 07/09/17 04:27 PT/INR, D-dimer PT 12.9 Sec. (12.2-14.9) 07/06/17 08:30 INR 0.93 (0.87-1.13) 07/06/17 08:30 Abnormal lab findings: Abnormal Labs 07/02/17 07/02/17 07/02/17 15:03 15:12 17:49 WBC 13.5 H RBC 3.47 L Hgb 9.9 L Hct 33.1 L MCV 96 H MCHC 30 L RDW 15.4 H Plt Count 130 L Lymph % (Auto) [place] % (Auto) Lymph # [place] # Seg Neutrophils % Seg Neuts % (Manual) 95.0 H Lymphocytes % (Manual) 3.0 L Seg Neutrophils # Seg Neutrophils # Man 12.8 H Lymphocytes # (Manual) 0.4 L POC ABG pH POC ABG pCO2 POC ABG pO2 Sodium Potassium Chloride Carbon Dioxide BUN Creatinine Glucose POC Glucose > 500 H Lactic Acid 7.80 H* Calcium Ionized Calcium Alkaline Phosphatase Lactate Dehydrogenase CK-MB (CK-2) Troponin T C-Reactive Protein Total Protein Albumin LDL Cholesterol Direct Salicylates 07/02/17 07/02/17 07/02/17 20:29 21:31 23:38 WBC RBC Hgb Hct MCV MCHC RDW Plt Count Lymph % (Auto) [place] % (Auto) Lymph # [place] # Seg Neutrophils % Seg Neuts % (Manual) Lymphocytes % (Manual) Seg Neutrophils # Seg Neutrophils # Man Lymphocytes # (Manual) POC ABG pH POC ABG pCO2 POC ABG pO2 Sodium 129 L 132 L Potassium Chloride 87.2 L 93.7 L Carbon Dioxide 18 L 15 L BUN 51 H 47 H Creatinine 4.3 H 4.1 H Glucose 950 H* 825 H* POC Glucose Lactic Acid 5.70 H* Calcium 7.1 L 6.8 L Ionized Calcium Alkaline Phosphatase Lactate Dehydrogenase CK-MB (CK-2) Troponin T C-Reactive Protein Total Protein Albumin LDL Cholesterol Direct Salicylates 07/02/17 07/02/17 07/02/17 23:38 23:44 Unknown WBC RBC Hgb Hct MCV MCHC RDW Plt Count Lymph % (Auto) [place] % (Auto) Lymph # [place] # Seg Neutrophils % Seg Neuts % (Manual) Lymphocytes % (Manual) Seg Neutrophils # Seg Neutrophils # Man Lymphocytes # (Manual) POC ABG pH POC ABG pCO2 POC ABG pO2 Sodium 132 L 125 L D Potassium Chloride 94.6 L 85.6 L Carbon Dioxide 17 L 19 L D BUN 51 H 50 H Creatinine 4.1 H 4.4 H D Glucose 772 H* 1113 H* POC Glucose > 500 H Lactic Acid Calcium 6.7 L 7.2 L Ionized Calcium Alkaline Phosphatase 139 H Lactate Dehydrogenase CK-MB (CK-2) Troponin T C-Reactive Protein Total Protein 6.1 L Albumin 3.3 L LDL Cholesterol Direct Salicylates 07/02/17 07/02/17 07/03/17 Unknown Unknown 01:00 WBC RBC Hgb Hct MCV MCHC RDW Plt Count Lymph % (Auto) [place] % (Auto) Lymph # [place] # Seg Neutrophils % Seg Neuts % (Manual) Lymphocytes % (Manual) Seg Neutrophils # Seg Neutrophils # Man Lymphocytes # (Manual) POC ABG pH POC ABG pCO2 POC ABG pO2 Sodium 134 L Potassium Chloride 96.4 L Carbon Dioxide 19 L BUN 50 H Creatinine 4.0 H Glucose 677 H* POC Glucose Lactic Acid 6.30 H* Calcium 6.6 L Ionized Calcium Alkaline Phosphatase Lactate Dehydrogenase CK-MB (CK-2) Troponin T C-Reactive Protein Total Protein Albumin LDL Cholesterol Direct Salicylates < 0.3 L 07/03/17 07/03/17 07/03/17 01:04 02:15 02:15 WBC RBC Hgb Hct MCV MCHC RDW Plt Count Lymph % (Auto) [place] % (Auto) Lymph # [place] # Seg Neutrophils % Seg Neuts % (Manual) Lymphocytes % (Manual) Seg Neutrophils # Seg Neutrophils # Man Lymphocytes # (Manual) POC ABG pH POC ABG pCO2 POC ABG pO2 Sodium 134 L Potassium Chloride 97.6 L Carbon Dioxide 19 L BUN 50 H Creatinine 4.2 H Glucose 592 H* POC Glucose > 500 H Lactic Acid 4.30 H* Calcium 6.6 L Ionized Calcium Alkaline Phosphatase Lactate Dehydrogenase CK-MB (CK-2) Troponin T C-Reactive Protein Total Protein Albumin LDL Cholesterol Direct Salicylates 07/03/17 07/03/17 07/03/17 02:21 03:25 04:10 WBC RBC Hgb Hct MCV MCHC RDW Plt Count Lymph % (Auto) [place] % (Auto) Lymph # [place] # Seg Neutrophils % Seg Neuts % (Manual) Lymphocytes % (Manual) Seg Neutrophils # Seg Neutrophils # Man Lymphocytes # (Manual) POC ABG pH POC ABG pCO2 POC ABG pO2 Sodium Potassium Chloride Carbon Dioxide 19 L BUN 50 H Creatinine 4.0 H Glucose 416 H POC Glucose 482 H > 500 H Lactic Acid Calcium 6.8 L Ionized Calcium Alkaline Phosphatase Lactate Dehydrogenase CK-MB (CK-2) Troponin T C-Reactive Protein Total Protein Albumin LDL Cholesterol Direct Salicylates 07/03/17 07/03/17 07/03/17 04:30 04:36 05:33 WBC RBC Hgb Hct MCV MCHC RDW Plt Count Lymph % (Auto) [place] % (Auto) Lymph # [place] # Seg Neutrophils % Seg Neuts % (Manual) Lymphocytes % (Manual) Seg Neutrophils # Seg Neutrophils # Man Lymphocytes # (Manual) POC ABG pH 7.311 L POC ABG pCO2 33.5 L POC ABG pO2 73 L Sodium Potassium Chloride Carbon Dioxide BUN Creatinine Glucose POC Glucose 389 H 326 H Lactic Acid Calcium Ionized Calcium Alkaline Phosphatase Lactate Dehydrogenase CK-MB (CK-2) Troponin T C-Reactive Protein Total Protein Albumin LDL Cholesterol Direct Salicylates 07/03/17 07/03/17 07/03/17 06:06 07:38 09:58 WBC RBC Hgb Hct MCV MCHC RDW Plt Count Lymph % (Auto) [place] % (Auto) Lymph # [place] # Seg Neutrophils % Seg Neuts % (Manual) Lymphocytes % (Manual) Seg Neutrophils # Seg Neutrophils # Man Lymphocytes # (Manual) POC ABG pH POC ABG pCO2 POC ABG pO2 Sodium Potassium Chloride Carbon Dioxide BUN Creatinine Glucose POC Glucose 247 H 118 H 52 L Lactic Acid Calcium Ionized Calcium Alkaline Phosphatase Lactate Dehydrogenase CK-MB (CK-2) Troponin T C-Reactive Protein Total Protein Albumin LDL Cholesterol Direct Salicylates 07/03/17 07/03/17 07/03/17 11:00 13:16 15:02 WBC RBC Hgb Hct MCV MCHC RDW Plt Count Lymph % (Auto) [place] % (Auto) Lymph # [place] # Seg Neutrophils % Seg Neuts % (Manual) Lymphocytes % (Manual) Seg Neutrophils # Seg Neutrophils # Man Lymphocytes # (Manual) POC ABG pH POC ABG pCO2 POC ABG pO2 Sodium Potassium Chloride Carbon Dioxide BUN Creatinine Glucose POC Glucose 64 L 112 H 158 H Lactic Acid Calcium Ionized Calcium Alkaline Phosphatase Lactate Dehydrogenase CK-MB (CK-2) Troponin T C-Reactive Protein Total Protein Albumin LDL Cholesterol Direct Salicylates 07/03/17 07/03/17 07/03/17 18:17 Unknown Unknown WBC RBC Hgb Hct MCV MCHC RDW Plt Count Lymph % (Auto) [place] % (Auto) Lymph # [place] # Seg Neutrophils % Seg Neuts % (Manual) Lymphocytes % (Manual) Seg Neutrophils # Seg Neutrophils # Man Lymphocytes # (Manual) POC ABG pH POC ABG pCO2 POC ABG pO2 Sodium Potassium Chloride Carbon Dioxide BUN Creatinine Glucose POC Glucose 131 H Lactic Acid 2.40 H* Calcium Ionized Calcium Alkaline Phosphatase Lactate Dehydrogenase CK-MB (CK-2) Troponin T C-Reactive Protein 1.90 H Total Protein Albumin LDL Cholesterol Direct Salicylates 07/03/17 07/04/17 07/04/17 Unknown 00:13 02:04 WBC RBC Hgb Hct MCV MCHC RDW Plt Count Lymph % (Auto) [place] % (Auto) Lymph # [place] # Seg Neutrophils % Seg Neuts % (Manual) Lymphocytes % (Manual) Seg Neutrophils # Seg Neutrophils # Man Lymphocytes # (Manual) POC ABG pH POC ABG pCO2 POC ABG pO2 Sodium Potassium Chloride Carbon Dioxide BUN 52 H Creatinine 4.3 H Glucose POC Glucose 69 L 111 H Lactic Acid Calcium 7.2 L Ionized Calcium Alkaline Phosphatase Lactate Dehydrogenase CK-MB (CK-2) Troponin T C-Reactive Protein Total Protein Albumin LDL Cholesterol Direct Salicylates 07/04/17 07/04/17 07/04/17 04:38 08:00 08:00 WBC 28.3 H RBC 3.55 L Hgb 10.3 L Hct 31.2 L MCV MCHC RDW 15.3 H Plt Count 101 L Lymph % (Auto) [place] % (Auto) Lymph # [place] # Seg Neutrophils % Seg Neuts % (Manual) Lymphocytes % (Manual) Seg Neutrophils # Seg Neutrophils # Man Lymphocytes # (Manual) POC ABG pH POC ABG pCO2 27.6 L POC ABG pO2 Sodium Potassium Chloride Carbon Dioxide 20 L BUN 62 H Creatinine 4.7 H Glucose POC Glucose Lactic Acid Calcium 7.0 L Ionized Calcium Alkaline Phosphatase Lactate Dehydrogenase CK-MB (CK-2) Troponin T C-Reactive Protein Total Protein Albumin LDL Cholesterol Direct Salicylates 07/04/17 07/04/17 07/04/17 14:10 14:10 14:33 WBC RBC Hgb Hct MCV MCHC RDW Plt Count Lymph % (Auto) [place] % (Auto) Lymph # [place] # Seg Neutrophils % Seg Neuts % (Manual) Lymphocytes % (Manual) Seg Neutrophils # Seg Neutrophils # Man Lymphocytes # (Manual) POC ABG pH 7.474 H POC ABG pCO2 29.4 L POC ABG pO2 Sodium Potassium Chloride Carbon Dioxide BUN Creatinine Glucose POC Glucose Lactic Acid Calcium Ionized Calcium 4.6 L Alkaline Phosphatase Lactate Dehydrogenase CK-MB (CK-2) 4.3 H Troponin T 0.282 H* C-Reactive Protein Total Protein Albumin LDL Cholesterol Direct 22 L Salicylates 07/04/17 07/04/17 07/04/17 17:26 20:40 23:34 WBC RBC Hgb Hct MCV MCHC RDW Plt Count Lymph % (Auto) [place] % (Auto) Lymph # [place] # Seg Neutrophils % Seg Neuts % (Manual) Lymphocytes % (Manual) Seg Neutrophils # Seg Neutrophils # Man Lymphocytes # (Manual) POC ABG pH POC ABG pCO2 POC ABG pO2 Sodium Potassium Chloride Carbon Dioxide BUN Creatinine Glucose POC Glucose 201 H 188 H Lactic Acid Calcium Ionized Calcium Alkaline Phosphatase Lactate Dehydrogenase CK-MB (CK-2) Troponin T 0.276 H* C-Reactive Protein Total Protein Albumin LDL Cholesterol Direct Salicylates 07/05/17 07/05/17 07/05/17 05:42 07:50 11:52 WBC RBC Hgb Hct MCV MCHC RDW Plt Count Lymph % (Auto) [place] % (Auto) Lymph # [place] # Seg Neutrophils % Seg Neuts % (Manual) Lymphocytes % (Manual) Seg Neutrophils # Seg Neutrophils # Man Lymphocytes # (Manual) POC ABG pH POC ABG pCO2 POC ABG pO2 117 H Sodium Potassium Chloride Carbon Dioxide BUN Creatinine Glucose POC Glucose 126 H 110 H Lactic Acid Calcium Ionized Calcium Alkaline Phosphatase Lactate Dehydrogenase CK-MB (CK-2) Troponin T C-Reactive Protein Total Protein Albumin LDL Cholesterol Direct Salicylates 07/05/17 07/05/17 07/05/17 12:40 17:51 18:12 WBC RBC Hgb Hct MCV MCHC RDW Plt Count Lymph % (Auto) [place] % (Auto) Lymph # [place] # Seg Neutrophils % Seg Neuts % (Manual) Lymphocytes % (Manual) Seg Neutrophils # Seg Neutrophils # Man Lymphocytes # (Manual) POC ABG pH POC ABG pCO2 POC ABG pO2 Sodium Potassium Chloride Carbon Dioxide BUN Creatinine Glucose POC Glucose 57 L 69 L Lactic Acid Calcium Ionized Calcium Alkaline Phosphatase Lactate Dehydrogenase CK-MB (CK-2) Troponin T 0.277 H* C-Reactive Protein Total Protein Albumin LDL Cholesterol Direct Salicylates 07/05/17 07/05/17 07/05/17 Unknown Unknown Unknown WBC 22.2 H RBC 3.24 L Hgb 9.7 L Hct 28.6 L MCV MCHC RDW Plt Count 89 L Lymph % (Auto) [place] % (Auto) Lymph # [place] # Seg Neutrophils % Seg Neuts % (Manual) 89.0 H Lymphocytes % (Manual) 7.0 L Seg Neutrophils # Seg Neutrophils # Man 19.8 H Lymphocytes # (Manual) POC ABG pH POC ABG pCO2 POC ABG pO2 Sodium Potassium 3.5 L Chloride Carbon Dioxide BUN 37 H Creatinine 3.1 H Glucose 120 H POC Glucose Lactic Acid 2.30 H* Calcium 7.7 L Ionized Calcium Alkaline Phosphatase Lactate Dehydrogenase CK-MB (CK-2) Troponin T C-Reactive Protein Total Protein Albumin LDL Cholesterol Direct Salicylates 07/05/17 07/06/17 07/06/17 Unknown 03:25 03:25 WBC 17.7 H RBC 3.14 L Hgb 9.3 L Hct 27.8 L MCV MCHC RDW 15.7 H Plt Count 82 L Lymph % (Auto) 2.5 L [place] % (Auto) Lymph # 0.4 L [place] # 1.1 H Seg Neutrophils % 90.0 H Seg Neuts % (Manual) Lymphocytes % (Manual) Seg Neutrophils # 15.9 H Seg Neutrophils # Man Lymphocytes # (Manual) POC ABG pH POC ABG pCO2 POC ABG pO2 Sodium Potassium 3.3 L Chloride Carbon Dioxide BUN 44 H Creatinine 3.6 H Glucose 132 H POC Glucose Lactic Acid Calcium 7.4 L Ionized Calcium Alkaline Phosphatase Lactate Dehydrogenase CK-MB (CK-2) Troponin T C-Reactive Protein 9.90 H Total Protein Albumin LDL Cholesterol Direct Salicylates 07/06/17 07/06/17 07/06/17 04:19 05:24 08:30 WBC RBC Hgb Hct MCV MCHC RDW Plt Count Lymph % (Auto) [place] % (Auto) Lymph # [place] # Seg Neutrophils % Seg Neuts % (Manual) Lymphocytes % (Manual) Seg Neutrophils # Seg Neutrophils # Man Lymphocytes # (Manual) POC ABG pH POC ABG pCO2 34.3 L POC ABG pO2 Sodium Potassium Chloride Carbon Dioxide BUN Creatinine Glucose POC Glucose 174 H Lactic Acid Calcium Ionized Calcium Alkaline Phosphatase Lactate Dehydrogenase 880 H CK-MB (CK-2) Troponin T C-Reactive Protein Total Protein 4.9 L Albumin LDL Cholesterol Direct Salicylates 07/06/17 07/06/17 07/06/17 11:13 17:14 23:38 WBC RBC Hgb Hct MCV MCHC RDW Plt Count Lymph % (Auto) [place] % (Auto) Lymph # [place] # Seg Neutrophils % Seg Neuts % (Manual) Lymphocytes % (Manual) Seg Neutrophils # Seg Neutrophils # Man Lymphocytes # (Manual) POC ABG pH POC ABG pCO2 POC ABG pO2 Sodium Potassium Chloride Carbon Dioxide BUN Creatinine Glucose POC Glucose 216 H 211 H 122 H Lactic Acid Calcium Ionized Calcium Alkaline Phosphatase Lactate Dehydrogenase CK-MB (CK-2) Troponin T C-Reactive Protein Total Protein Albumin LDL Cholesterol Direct Salicylates 07/07/17 07/07/17 07/07/17 04:38 05:00 05:00 WBC 16.1 H RBC 3.00 L Hgb 8.9 L Hct 26.6 L MCV MCHC RDW 15.6 H Plt Count 106 L Lymph % (Auto) 4.1 L [place] % (Auto) 8.0 H Lymph # 0.7 L [place] # 1.3 H Seg Neutrophils % 86.6 H Seg Neuts % (Manual) Lymphocytes % (Manual) Seg Neutrophils # 13.9 H Seg Neutrophils # Man Lymphocytes # (Manual) POC ABG pH 7.455 H POC ABG pCO2 POC ABG pO2 134 H Sodium Potassium Chloride Carbon Dioxide BUN 30 H Creatinine 2.8 H Glucose 188 H POC Glucose Lactic Acid Calcium 7.9 L Ionized Calcium Alkaline Phosphatase Lactate Dehydrogenase CK-MB (CK-2) Troponin T C-Reactive Protein Total Protein Albumin LDL Cholesterol Direct Salicylates 07/07/17 07/07/17 07/07/17 05:17 11:33 16:04 WBC RBC Hgb Hct MCV MCHC RDW Plt Count Lymph % (Auto) [place] % (Auto) Lymph # [place] # Seg Neutrophils % Seg Neuts % (Manual) Lymphocytes % (Manual) Seg Neutrophils # Seg Neutrophils # Man Lymphocytes # (Manual) POC ABG pH POC ABG pCO2 POC ABG pO2 126 H Sodium Potassium Chloride Carbon Dioxide BUN Creatinine Glucose POC Glucose 189 H 275 H Lactic Acid Calcium Ionized Calcium Alkaline Phosphatase Lactate Dehydrogenase CK-MB (CK-2) Troponin T C-Reactive Protein Total Protein Albumin LDL Cholesterol Direct Salicylates 07/07/17 07/07/17 07/08/17 17:08 23:45 05:30 WBC RBC Hgb Hct MCV MCHC RDW Plt Count Lymph % (Auto) [place] % (Auto) Lymph # [place] # Seg Neutrophils % Seg Neuts % (Manual) Lymphocytes % (Manual) Seg Neutrophils # Seg Neutrophils # Man Lymphocytes # (Manual) POC ABG pH POC ABG pCO2 POC ABG pO2 Sodium Potassium Chloride Carbon Dioxide BUN Creatinine Glucose POC Glucose 241 H 118 H 199 H Lactic Acid Calcium Ionized Calcium Alkaline Phosphatase Lactate Dehydrogenase CK-MB (CK-2) Troponin T C-Reactive Protein Total Protein Albumin LDL Cholesterol Direct Salicylates 07/08/17 07/08/17 07/08/17 05:54 06:12 06:12 WBC 17.0 H RBC 3.27 L Hgb 9.5 L Hct 29.1 L MCV MCHC RDW 15.6 H Plt Count 133 L Lymph % (Auto) 4.6 L [place] % (Auto) 9.2 H Lymph # 0.8 L [place] # 1.6 H Seg Neutrophils % 83.9 H Seg Neuts % (Manual) Lymphocytes % (Manual) Seg Neutrophils # 14.3 H Seg Neutrophils # Man Lymphocytes # (Manual) POC ABG pH 7.477 H POC ABG pCO2 POC ABG pO2 118 H Sodium Potassium Chloride Carbon Dioxide BUN 44 H Creatinine 3.4 H Glucose 190 H POC Glucose Lactic Acid Calcium 7.8 L Ionized Calcium Alkaline Phosphatase Lactate Dehydrogenase CK-MB (CK-2) Troponin T C-Reactive Protein Total Protein Albumin LDL Cholesterol Direct Salicylates 07/08/17 07/08/17 07/08/17 11:37 17:21 23:09 WBC RBC Hgb Hct MCV MCHC RDW Plt Count Lymph % (Auto) [place] % (Auto) Lymph # [place] # Seg Neutrophils % Seg Neuts % (Manual) Lymphocytes % (Manual) Seg Neutrophils # Seg Neutrophils # Man Lymphocytes # (Manual) POC ABG pH POC ABG pCO2 POC ABG pO2 Sodium Potassium Chloride Carbon Dioxide BUN Creatinine Glucose POC Glucose 236 H 186 H 203 H Lactic Acid Calcium Ionized Calcium Alkaline Phosphatase Lactate Dehydrogenase CK-MB (CK-2) Troponin T C-Reactive Protein Total Protein Albumin LDL Cholesterol Direct Salicylates 07/09/17 07/09/17 07/09/17 04:27 05:02 05:02 WBC 17.8 H RBC 2.88 L Hgb 8.5 L Hct 25.6 L MCV MCHC RDW 15.5 H Plt Count Lymph % (Auto) 4.6 L [place] % (Auto) 10.2 H Lymph # 0.8 L [place] # 1.8 H Seg Neutrophils % 83.4 H Seg Neuts % (Manual) Lymphocytes % (Manual) Seg Neutrophils # 14.8 H Seg Neutrophils # Man Lymphocytes # (Manual) POC ABG pH POC ABG pCO2 POC ABG pO2 132 H Sodium Potassium Chloride Carbon Dioxide BUN 61 H Creatinine 4.0 H Glucose 183 H POC Glucose Lactic Acid Calcium 7.6 L Ionized Calcium Alkaline Phosphatase Lactate Dehydrogenase CK-MB (CK-2) Troponin T C-Reactive Protein Total Protein Albumin LDL Cholesterol Direct Salicylates 07/09/17 05:33 WBC RBC Hgb Hct MCV MCHC RDW Plt Count Lymph % (Auto) [place] % (Auto) Lymph # [place] # Seg Neutrophils % Seg Neuts % (Manual) Lymphocytes % (Manual) Seg Neutrophils # Seg Neutrophils # Man Lymphocytes # (Manual) POC ABG pH POC ABG pCO2 POC ABG pO2 Sodium Potassium Chloride Carbon Dioxide BUN Creatinine Glucose POC Glucose 177 H Lactic Acid Calcium Ionized Calcium Alkaline Phosphatase Lactate Dehydrogenase CK-MB (CK-2) Troponin T C-Reactive Protein Total Protein Albumin LDL Cholesterol Direct Salicylates Chest x-ray: image reviewed Allied health notes reviewed: nursing
[2017-07-09] MEDS: FLAGYL PO SCH ×2 (13:07→21:35)
[2017-07-09 13:22] LABS: LDH,Body Fluid 132; Total Protein,Body Fluid < 3.0 (15.0-45.0)
--- NOTE | 2017-07-09 17:40 | Cat Scan Report ---
FINAL REPORT EXAM: CT ABD AND PELVIS WO CONTRAST HISTORY: abd pain diarrhea and persistent leukocytosis. Please evaluate for colitis, diverticulitis, or cholecystitis. TECHNIQUE: Standard unenhanced CT of the abdomen and pelvis. Coronal and sagittal reconstruction was also performed. Contrast: Oral contrast given PRIORS: None. FINDINGS: Within the abdomen, the liver, spleen, pancreas, gallbladder, adrenal glands, and kidneys are unremarkable. A Dobhoff feeding tube terminates in the collapsed stomach. The metallic tip causes beam hardening artifact through upper stomach. A rectal tube is present in place. The oral contrast given is present in the distal small bowel and throughout the entire colon to the rectum. No evidence for diverticular disease or wall thickening is seen to suggest colitis. No evidence for retroperitoneal or pelvic lymphadenopathy is seen. The small bowel loops have normal caliber. No soft tissue mass, fluid collection, inflammatory change, or free air is seen within the abdomen or pelvis. The appendix cannot be confidently identified. Mild calcification of aorta is seen. Within the pelvis, the bladder is unremarkable. The prostate is normal. No evidence for mass or lymphadenopathy is seen in the pelvis. There is a small right inguinal hernia containing a short segment of normal small bowel (axial image 63, series 2). No associated bowel obstruction is seen. Images through the upper abdomen include the lung bases which demonstrates moderate bilateral low-density free-flowing pleural effusions, stable. Bony structures show severe degenerative disc narrowing from L3 through S1 with large osteophytes anteriorly at these levels. There is generalized anasarca in the subcutaneous soft tissues. IMPRESSION: 1. no acute intra-abdominal process noted. No evidence for cholecystitis, colitis, or diverticulitis 2. Small right inguinal hernia containing a short segment of normal small bowel. No evidence for bowel obstruction is seen 3. Moderate bilateral low-density pleural effusions 4. Generalized anasarca in the subcutaneous soft tissues 5. Severe degenerative disc changes from L3 through S1.
--- NOTE | 2017-07-09 18:57 | Progress Note ---
Assessment and Plan Assessment and plan: 33 minutes critical care time in coordination of care of this critical ill patient. It took my direct intervention with medication lab review data review. Assessment and monitoring data assessment data review. Medications orders and documentation. Total Time Spent with Patient (Minutes): 33 - Patient Problems (1) Cardiac arrest Current Visit: Yes Status: Acute Plan to address problem: Cardiology following. On anticoagulation. Not a candidate for invasive treatment at this particular time. Clarence and aspirin for anticoagulation. (2) DKA (diabetic ketoacidoses) Current Visit: Yes Status: Acute Qualifiers: Diabetes mellitus type: type 1 Diabetes mellitus complication detail: with coma Qualified Code(s): E10.11 - Type 1 diabetes mellitus with ketoacidosis with coma Plan to address problem: DKA resolved continue long-acting insulin. Would titrate up on insulin today. (3) Metabolic encephalopathy Current Visit: Yes Status: Acute Plan to address problem: Secondary to anoxic brain injury. (4) Respiratory failure Current Visit: Yes Status: Acute Qualifiers: Chronicity: acute Respiratory failure complication: hypoxia and hypercapnia Qualified Code(s): J96.01 - Acute respiratory failure with hypoxia ; J96.02 - Acute respiratory failure with hypercapnia; J96.02 - Acute respiratory failure with hypercapnia; J96.02 - Acute respiratory failure with hypercapnia Plan to address problem: Remains intubated and mechanical ventilation. (5) Seizures Current Visit: Yes Status: Acute Plan to address problem: Seizure disorder treated. No active seizures at this time. (6) Anoxic brain damage Current Visit: Yes Status: Suspected Plan to address problem: Secondary cardiorespiratory arrest. DKA. (7) Anemia in ESRD (end-stage renal disease) Current Visit: No Status: Acute (8) Leukocytosis Current Visit: Yes Status: Acute Plan to address problem: Cystoscopy leukocytosis and fever. CT scan abdomen for AM. History Interval history: Patient remains intubated for acute respiratory failure. Hospitalist Physical - Constitutional Vitals: Temp Pulse Resp BP Pulse Ox 98.3 F 99 H 14 137/69 98 07/09/17 17:15 07/09/17 18:30 07/09/17 17:40 07/09/17 18:30 07/09/17 17:40 General appearance: Present: mild distress, other (intubated, unresponsive) - EENT Eyes: Present: PERRL - Neck Neck: Present: supple - Respiratory Respiratory: bilateral: CTA, diminished, rhonchi - Cardiovascular Rhythm: regular Heart Sounds: Present: S1 & S2 - Extremities Extremities: no ischemia, pulses symmetrical Extremity abnormal: edema Peripheral Pulses: within normal limits - Abdominal General gastrointestinal: soft, non-tender, distended, normal bowel sounds Results - Labs CBC & Chem 7: 07/09/17 05:02 07/09/17 05:02 Labs: Laboratory Last Values WBC 17.8 K/mm3 (4.5-11.0) H 07/09/17 05:02 RBC 2.88 M/mm3 (3.65-5.03) L 07/09/17 05:02 Hgb 8.5 gm/dl (11.8-15.2) L 07/09/17 05:02 Hct 25.6 % (35.5-45.6) L 07/09/17 05:02 MCV 89 fl (84-94) 07/09/17 05:02 MCH 30 pg (28-32) 07/09/17 05:02 MCHC 33 % (32-34) 07/09/17 05:02 RDW 15.5 % (13.2-15.2) H 07/09/17 05:02 Plt Count 153 K/mm3 (140-440) 07/09/17 05:02 Lymph % (Auto) 4.6 % (13.4-35.0) L 07/09/17 05:02 [place] % (Auto) 10.2 % (0.0-7.3) H 07/09/17 05:02 Eos % (Auto) 1.6 % (0.0-4.3) 07/09/17 05:02 Baso % (Auto) 0.2 % (0.0-1.8) 07/09/17 05:02 Lymph # 0.8 K/mm3 (1.2-5.4) L 07/09/17 05:02 [place] # 1.8 K/mm3 (0.0-0.8) H 07/09/17 05:02 Eos # 0.3 K/mm3 (0.0-0.4) 07/09/17 05:02 Baso # 0.0 K/mm3 (0.0-0.1) 07/09/17 05:02 Add Manual Diff Complete 07/05/17 Unknown Total Counted 100 07/05/17 Unknown Seg Neutrophils % 83.4 % (40.0-70.0) H 07/09/17 05:02 Seg Neuts % (Manual) 89.0 % (40.0-70.0) H 07/05/17 Unknown Band Neutrophils % 1.0 % 07/05/17 Unknown Lymphocytes % (Manual) 7.0 % (13.4-35.0) L 07/05/17 Unknown Reactive Lymphs % (Man) 0 % 07/05/17 Unknown Monocytes % (Manual) 3.0 % (0.0-7.3) 07/05/17 Unknown Eosinophils % (Manual) 0 % (0.0-4.3) 07/05/17 Unknown Basophils % (Manual) 0 % (0.0-1.8) 07/05/17 Unknown Metamyelocytes % 0 % 07/05/17 Unknown Myelocytes % 0 % 07/05/17 Unknown Promyelocytes % 0 % 07/05/17 Unknown Blast Cells % 0 % 07/05/17 Unknown Nucleated RBC % Not Reportable 07/05/17 Unknown Seg Neutrophils # 14.8 K/mm3 (1.8-7.7) H 07/09/17 05:02 Seg Neutrophils # Man 19.8 K/mm3 (1.8-7.7) H 07/05/17 Unknown Band Neutrophils # 0.2 K/mm3 07/05/17 Unknown Lymphocytes # (Manual) 1.6 K/mm3 (1.2-5.4) 07/05/17 Unknown Abs React Lymphs (Man) 0.0 K/mm3 07/05/17 Unknown Monocytes # (Manual) 0.7 K/mm3 (0.0-0.8) 07/05/17 Unknown Eosinophils # (Manual) 0.0 K/mm3 (0.0-0.4) 07/05/17 Unknown Basophils # (Manual) 0.0 K/mm3 (0.0-0.1) 07/05/17 Unknown Metamyelocytes # 0.0 K/mm3 07/05/17 Unknown Myelocytes # 0.0 K/mm3 07/05/17 Unknown Promyelocytes # 0.0 K/mm3 07/05/17 Unknown Blast Cells # 0.0 K/mm3 07/05/17 Unknown WBC Morphology Not Reportable 07/05/17 Unknown Hypersegmented Neuts Not Reportable 07/05/17 Unknown Hyposegmented Neuts Not Reportable 07/05/17 Unknown Hypogranular Neuts Not Reportable 07/05/17 Unknown Smudge Cells Not Reportable 07/05/17 Unknown Toxic Granulation Not Reportable 07/05/17 Unknown Toxic Vacuolation Not Reportable 07/05/17 Unknown Dohle Bodies Not Reportable 07/05/17 Unknown Pelger-Huet Anomaly Not Reportable 07/05/17 Unknown [place] Rods Not Reportable 07/05/17 Unknown Platelet Estimate Appears decreased 07/05/17 Unknown Clumped Platelets Not Reportable 07/05/17 Unknown Plt Clumps, EDTA Not Reportable 07/05/17 Unknown Large Platelets Not Reportable 07/05/17 Unknown Giant Platelets Not Reportable 07/05/17 Unknown Platelet Satelliting Not Reportable 07/05/17 Unknown Plt Morphology Comment Not Reportable 07/05/17 Unknown RBC Morphology Not Reportable 07/05/17 Unknown Dimorphic RBCs Not Reportable 07/05/17 Unknown Polychromasia Not Reportable 07/05/17 Unknown Hypochromasia Not Reportable 07/05/17 Unknown Poikilocytosis 1+ 07/05/17 Unknown Anisocytosis 1+ 07/05/17 Unknown Microcytosis Few 07/05/17 Unknown Macrocytosis Not Reportable 07/05/17 Unknown Spherocytes Not Reportable 07/05/17 Unknown Pappenheimer Bodies Not Reportable 07/05/17 Unknown Sickle Cells Not Reportable 07/05/17 Unknown Target Cells Not Reportable 07/05/17 Unknown Tear Drop Cells Not Reportable 07/05/17 Unknown Ovalocytes Not Reportable 07/05/17 Unknown Helmet Cells Not Reportable 07/05/17 Unknown [place] Bodies Not Reportable 07/05/17 Unknown Marble Rings Not Reportable 07/05/17 Unknown Crum Cells Not Reportable 07/05/17 Unknown Bite Cells Not Reportable 07/05/17 Unknown Crenated Cell Not Reportable 07/05/17 Unknown Elliptocytes Not Reportable 07/05/17 Unknown Acanthocytes (Spur) Not Reportable 07/05/17 Unknown Rouleaux Not Reportable 07/05/17 Unknown Hemoglobin C Crystals Not Reportable 07/05/17 Unknown Schistocytes Not Reportable 07/05/17 Unknown Malaria parasites Not Reportable 07/05/17 Unknown Morales Bodies Not Reportable 07/05/17 Unknown Hem Pathologist Commnt No 07/05/17 Unknown PT 12.9 Sec. (12.2-14.9) 07/06/17 08:30 INR 0.93 (0.87-1.13) 07/06/17 08:30 POC ABG pH 7.435 (7.35-7.45) 07/09/17 04:27 POC ABG pCO2 37.0 (35-45) 07/09/17 04:27 POC ABG pO2 132 (80-105) H 07/09/17 04:27 POC ABG HCO3 24.8 07/09/17 04:27 POC ABG Total CO2 26 07/09/17 04:27 POC ABG O2 Sat 99 07/09/17 04:27 POC ABG Base Excess 1 07/09/17 04:27 FiO2 28 % 07/09/17 04:27 Sodium 141 mmol/L (137-145) 07/09/17 05:02 Potassium 3.8 mmol/L (3.6-5.0) 07/09/17 05:02 Chloride 102.5 mmol/L (98-107) 07/09/17 05:02 Carbon Dioxide 25 mmol/L (22-30) 07/09/17 05:02 Anion Gap 17 mmol/L 07/09/17 05:02 BUN 61 mg/dL (9-20) H 07/09/17 05:02 Creatinine 4.0 mg/dL (0.8-1.5) H 07/09/17 05:02 Estimated GFR 18 ml/min 07/09/17 05:02 BUN/Creatinine Ratio 15 % 07/09/17 05:02 Glucose 183 mg/dL (75-100) H 07/09/17 05:02 POC Glucose 177 (70-105) H 07/09/17 05:33 Osmolality 357 Mosm/kg 07/02/17 15:35 Lactic Acid 2.30 mmol/L (0.7-2.0) H* 07/05/17 Unknown Calcium 7.6 mg/dL (8.4-10.2) L 07/09/17 05:02 Ionized Calcium 4.6 mg/dL (4.8-5.6) L 07/04/17 14:10 Phosphorus 3.80 mg/dL (2.5-4.5) 07/04/17 14:10 Magnesium 1.80 mg/dL (1.7-2.3) 07/04/17 14:10 Total Bilirubin 0.40 mg/dL (0.1-1.2) 07/02/17 Unknown AST 31 units/L (5-40) 07/02/17 Unknown ALT 23 units/L (7-56) 07/02/17 Unknown Alkaline Phosphatase 139 units/L (35-129) H 07/02/17 Unknown Lactate Dehydrogenase 880 units/L (91-180) H 07/06/17 08:30 Total Creatine Kinase 58 units/L (55-170) 07/05/17 12:40 CK-MB (CK-2) 1.8 ng/mL (0.0-4.0) 07/05/17 12:40 CK-MB (CK-2) Rel Index 3.1 (0-4) 07/05/17 12:40 Troponin T 0.277 ng/mL (0.00-0.029) H* 07/05/17 12:40 C-Reactive Protein 9.90 mg/dL (0.00-1.30) H 07/05/17 Unknown Total Protein 4.9 g/dL (6.3-8.2) L 07/06/17 08:30 Albumin 3.3 g/dL (3.9-5) L 07/02/17 Unknown Albumin/Globulin Ratio 1.2 % 07/02/17 Unknown Triglycerides 83 mg/dL (2-149) 07/04/17 14:10 Cholesterol 83 mg/dL (50-199) 07/04/17 14:10 LDL Cholesterol Direct 22 mg/dL (50-130) L 07/04/17 14:10 HDL Cholesterol 45 mg/dL (40-59) 07/04/17 14:10 Cholesterol/HDL Ratio 1.84 % 07/04/17 14:10 TSH 3.200 mlU/mL (0.270-4.200) 07/02/17 Unknown Urine Color Yellow (Yellow) 07/02/17 17:25 Urine Turbidity Clear (Clear) 07/02/17 17:25 Urine pH 5.0 (5.0-7.0) 07/02/17 17:25 Ur Specific [place] 1.018 (1.003-1.030) 07/02/17 17:25 Urine Protein 100 mg/dl mg/dL (Negative) 07/02/17 17:25 Urine Glucose (UA) >=500 mg/dL (Negative) 07/02/17 17:25 Urine Ketones Neg mg/dL (Negative) 07/02/17 17:25 Urine Blood Sm (Negative) 07/02/17 17:25 Urine Nitrite Neg (Negative) 07/02/17 17:25 Urine Bilirubin Neg (Negative) 07/02/17 17:25 Urine Urobilinogen < 2.0 mg/dL (<2.0) 07/02/17 17:25 Ur Leukocyte Esterase Neg (Negative) 07/02/17 17:25 Urine WBC (Auto) 1.0 /HPF (0.0-6.0) 07/02/17 17:25 Urine RBC (Auto) 2.0 /HPF (0.0-6.0) 07/02/17 17:25 U Epithel Cells (Auto) 1.0 /HPF (0-13.0) 07/02/17 17:25 Fluid Type Pleural 07/06/17 16:53 Fluid Color Yellow 07/06/17 16:53 Fluid Appearance Clear 07/06/17 16:53 Fluid WBC 9 /mm3 07/06/17 16:53 Fluid RBC 6 /mm3 07/06/17 16:53 Fluid Seg Neutrophils 51.2 % 07/06/17 16:53 Fluid Lymphocytes 43.9 % 07/06/17 16:53 Fluid Reactive Lymphs 0 % 07/06/17 16:53 Fluid Monocytes 4.9 % 07/06/17 16:53 Fluid Eosinophils 0 % 07/06/17 16:53 Fluid Basophils 0 % 07/06/17 16:53 Fluid Total Protein < 3.0 (15.0-45.0) L 07/06/17 Unknown Fluid LDH 132 07/06/17 Unknown Fluid Comment 07/06/17 16:53 Salicylates < 0.3 mg/dL (2.8-20.0) L 07/02/17 Unknown Urine Opiates Screen Presumptive negative 07/02/17 17:25 Urine Methadone Screen Presumptive negative 07/02/17 17:25 Acetaminophen < 15.0 ug/mL (10.0-30.0) 07/02/17 Unknown Ur Barbiturates Screen Presumptive negative 07/02/17 17:25 Ur Phencyclidine Scrn Presumptive negative 07/02/17 17:25 Ur Amphetamines Screen Presumptive negative 07/02/17 17:25 U Benzodiazepines Scrn Presumptive negative 07/02/17 17:25 Urine Cocaine Screen Presumptive negative 07/02/17 17:25 U Marijuana (THC) Screen Presumptive negative 07/02/17 17:25 Drugs of Abuse Note Disclamer 07/02/17 17:25 Plasma/Serum Alcohol < 0.01 gm% (0-0.07) 07/02/17 Unknown - Imaging and Cardiology Chest x-ray: image reviewed CT scan - chest: report reviewed US - abdomen: report reviewed, image reviewed
[2017-07-09] MEDS: HEPARIN IV PRN (19:07)
[2017-07-10] MEDS: NOVOLOG SUB-Q SCH ×4 (00:25→17:49)
[2017-07-10 04:11] LABS: Basophils % (Auto) 0.2 % (0.0-1.8); Eosinophils % (Auto) 1.2 % (0.0-4.3); Hematocrit 24.9 % (35.5-45.6); Hemoglobin 8.1 gm/dl (11.8-15.2); Mean Corpuscular HGB Conc 33 % (32-34); Mean Corpuscular Hemoglobin 29 pg (28-32); Mean Corpuscular Volume 90 fl (84-94); Platelet Count 156 K/mm3 (140-440); Red Blood Count 2.77 M/mm3 (3.65-5.03); Red Cell Distribution Width 15.7 % (13.2-15.2); White Blood Count 16.8 K/mm3 (4.5-11.0)
[2017-07-10 04:30] LABS: Calcium 8.1 mg/dL (8.4-10.2); Chloride 102.7 mmol/L (98-107); Potassium 4.2 mmol/L (3.6-5.0)
[2017-07-10] MEDS: FLAGYL PO SCH ×3 (06:12→21:53)
--- NOTE | 2017-07-10 08:39 | Progress Note ---
Assessment and Plan Acute Hypoxemic Respiratory Failure on MVS Seizure Disorder s/p Cardiac Arrest ESRD on Dialysis Sepsis Syndrome Hyperosmolar non ketotic state Anemia Leucocytosis Acute Encephalopathy - lung protective strategies -VAP bundle addressed -initiate enteric feeding once nasogastric tube position is confirmed - Daily SBT and SAT trials - continue aspiration precautions / addressing VAP bundle daily - continue to wean FiO2 for sats > 94% - continue enteral nutrition as tolerated - continue bronchodilators and pulmonary toilet - start empiric AB's - continue glycemic control with insulin infusion (target BG <180mg/dl) - continue GI & VTE prophylaxis - continue other care per attending / other consultants ...case discussed at length during [place] rounds and care plan formulated ....care plan discussed with son in room and his questions were answered acceptably Subjective Principal diagnosis: Acute Hypoxemic Resp Failure; S/P Cardiac Arrest; Hyperosmolar Non-ketotic Interval history: Seen and examined. Vitals, labs, medications, cahrt reviewed. Discussed during interdisciplinary ICU rounds Tolerating PSV 10/5 for over 12 hours, rested overnight overnight. s/p thoracentesis a week ago. CT pelvis and abdomen done yesterday, for leukocytosis and anemia, FOBT positive r/o ischemic colitis. Intubated. Tube feeding, Novasource. Remains encephalopathy. EEG is pending. Antibiotics stewardship----metronidazole empirically 5/10 VTE prophylaxis , dropped significantly. recovered by holding enoxaparin. Re challenge with heparin, send HIT antibody Famotidine for stress ulcer prophylaxis. Discharge planning- LTACH after trach and PEG Place a consult for [facility] Family discussions needed to address goals of care Objective - Exam Narrative Exam: General appearance: ETT to [facility], chronically ill looking. Spontaneous eye opening, not obeying or following commands Eyes: anicteric sclerae, moist conjunctivae; PERRLA HENT: Atraumatic; oropharynx +ETT +Nasojejunal feeding tube Neck: Trachea midline; supple, no thyromegaly or lymphadenopathy Lungs: Good AE bilaterally, CTA, CV:RRR, S1,S2, no murmurs, gallops or rubs Abdomen: Soft, non-tender, ND, BS+ Extremities: peripheral edema Skin: Normal temperature, turgor and texture; no rash, ulcers or subcutaneous nodules Psych: unable to eval . Neuro: unable to eval Lines: right IJ Permacath Vital Signs - 12hr 07/09/17 07/09/17 07/09/17 20:35 21:00 21:30 Temperature 99.1 F Pulse Rate 98 H 99 H 99 H Pulse Rate [ Anterior Bilateral Throughout] Pulse Rate [ From Monitor] Respiratory 10 L 11 L 13 Rate Respiratory Rate [Anterior Bilateral Throughout] Blood Pressure 144/72 147/73 143/71 O2 Sat by Pulse 100 100 Oximetry O2 Sat by Pulse 100 Oximetry [ Anterior Bilateral Throughout] 07/09/17 07/09/17 07/09/17 21:35 22:00 22:30 Temperature Pulse Rate 98 H 101 H 96 H Pulse Rate [ Anterior Bilateral Throughout] Pulse Rate [ From Monitor] Respiratory 12 12 Rate Respiratory Rate [Anterior Bilateral Throughout] Blood Pressure 143/71 140/70 140/70 O2 Sat by Pulse 100 100 Oximetry O2 Sat by Pulse Oximetry [ Anterior Bilateral Throughout] 07/09/17 07/09/17 07/09/17 22:44 23:00 23:24 Temperature Pulse Rate 96 H 95 H 95 H Pulse Rate [ Anterior Bilateral Throughout] Pulse Rate [ From Monitor] Respiratory 13 13 Rate Respiratory Rate [Anterior Bilateral Throughout] Blood Pressure 130/71 131/64 130/69 O2 Sat by Pulse 100 100 100 Oximetry O2 Sat by Pulse Oximetry [ Anterior Bilateral Throughout] 07/09/17 07/09/17 07/09/17 23:26 23:30 23:36 Temperature Pulse Rate 95 H Pulse Rate [ 96 H 93 H Anterior Bilateral Throughout] Pulse Rate [ From Monitor] Respiratory 13 Rate Respiratory 12 16 Rate [Anterior Bilateral Throughout] Blood Pressure 137/71 O2 Sat by Pulse 100 Oximetry O2 Sat by Pulse Oximetry [ Anterior Bilateral Throughout] 07/09/17 07/10/17 07/10/17 23:39 00:00 00:26 Temperature 99.3 F Pulse Rate 90 Pulse Rate [ Anterior Bilateral Throughout] Pulse Rate [ 93 H From Monitor] Respiratory 12 12 Rate Respiratory Rate [Anterior Bilateral Throughout] Blood Pressure 124/62 O2 Sat by Pulse 100 100 Oximetry O2 Sat by Pulse Oximetry [ Anterior Bilateral Throughout] 07/10/17 07/10/17 07/10/17 00:30 01:00 01:30 Temperature Pulse Rate 95 H 95 H 95 H Pulse Rate [ Anterior Bilateral Throughout] Pulse Rate [ From Monitor] Respiratory 13 12 11 L Rate Respiratory Rate [Anterior Bilateral Throughout] Blood Pressure 134/65 136/65 136/69 O2 Sat by Pulse 100 100 100 Oximetry O2 Sat by Pulse Oximetry [ Anterior Bilateral Throughout] 07/10/17 07/10/17 07/10/17 02:00 02:30 03:00 Temperature Pulse Rate 94 H 94 H 93 H Pulse Rate [ Anterior Bilateral Throughout] Pulse Rate [ From Monitor] Respiratory 12 11 L 11 L Rate Respiratory Rate [Anterior Bilateral Throughout] Blood Pressure 137/65 137/69 139/65 O2 Sat by Pulse 100 100 100 Oximetry O2 Sat by Pulse Oximetry [ Anterior Bilateral Throughout] 07/10/17 07/10/17 07/10/17 03:07 03:30 03:39 Temperature 99.1 F Pulse Rate 93 H 94 H Pulse Rate [ Anterior Bilateral Throughout] Pulse Rate [ From Monitor] Respiratory 12 Rate Respiratory Rate [Anterior Bilateral Throughout] Blood Pressure 139/65 140/67 O2 Sat by Pulse 100 100 Oximetry O2 Sat by Pulse Oximetry [ Anterior Bilateral Throughout] 07/10/17 07/10/17 07/10/17 04:00 04:15 04:30 Temperature Pulse Rate 92 H 91 H Pulse Rate [ Anterior Bilateral Throughout] Pulse Rate [ 93 H From Monitor] Respiratory 12 12 12 Rate Respiratory Rate [Anterior Bilateral Throughout] Blood Pressure 126/60 139/66 O2 Sat by Pulse 100 100 100 Oximetry O2 Sat by Pulse Oximetry [ Anterior Bilateral Throughout] 07/10/17 07/10/17 07/10/17 05:00 05:30 06:00 Temperature Pulse Rate 91 H 91 H 91 H Pulse Rate [ Anterior Bilateral Throughout] Pulse Rate [ From Monitor] Respiratory 12 12 12 Rate Respiratory Rate [Anterior Bilateral Throughout] Blood Pressure 138/67 138/66 135/64 O2 Sat by Pulse 100 100 100 Oximetry O2 Sat by Pulse Oximetry [ Anterior Bilateral Throughout] 07/10/17 07/10/17 07/10/17 06:30 07:00 07:30 Temperature Pulse Rate 97 H 93 H 92 H Pulse Rate [ Anterior Bilateral Throughout] Pulse Rate [ From Monitor] Respiratory 12 12 12 Rate Respiratory Rate [Anterior Bilateral Throughout] Blood Pressure 139/68 134/66 139/68 O2 Sat by Pulse 100 100 100 Oximetry O2 Sat by Pulse Oximetry [ Anterior Bilateral Throughout] 07/10/17 08:00 Temperature 98.3 F Pulse Rate 92 H Pulse Rate [ Anterior Bilateral Throughout] Pulse Rate [ 92 H From Monitor] Respiratory 12 Rate Respiratory Rate [Anterior Bilateral Throughout] Blood Pressure 138/66 O2 Sat by Pulse 100 Oximetry O2 Sat by Pulse Oximetry [ Anterior Bilateral Throughout] Constitutional: no acute distress, other (encephalopathic) Eyes: non-icteric ENT: oropharynx moist, other (ETT at 25cm TIKI) Neck: supple, no lymphadenopathy, JVD, other (no thyromegally) Effort: mildly labored Ascultation: Bilateral: diminished breath sounds (bases), rales Percussion: Right: dull (base), Bilateral: not dull Cardiovascular: regular rate and rhythm, other (no rubs / murmurs) Gastrointestinal: normoactive bowel sounds, soft, non-tender, non-distended, other (no HSM) Integumentary: normal Extremities: no cyanosis, no edema, pulses normal, no ischemia or petechiae Neurologic: pupils equal and round, unable to assess, other (no spontaneous limb movements) Psychiatric: other (unable to assess) CBC and BMP: 07/10/17 10:07 07/10/17 10:02 ABG, PT/INR, D-dimer: ABG POC ABG pH 7.435 (7.35-7.45) 07/09/17 04:27 POC ABG pCO2 37.0 (35-45) 07/09/17 04:27 POC ABG pO2 132 (80-105) H 07/09/17 04:27 POC ABG HCO3 24.8 07/09/17 04:27 POC ABG Total CO2 26 07/09/17 04:27 POC ABG O2 Sat 99 07/09/17 04:27 PT/INR, D-dimer PT 12.9 Sec. (12.2-14.9) 07/06/17 08:30 INR 0.93 (0.87-1.13) 07/06/17 08:30 Abnormal lab findings: Abnormal Labs 07/02/17 07/02/17 07/02/17 15:03 15:12 17:49 WBC 13.5 H RBC 3.47 L Hgb 9.9 L Hct 33.1 L MCV 96 H MCHC 30 L RDW 15.4 H Plt Count 130 L Lymph % (Auto) [place] % (Auto) Lymph # [place] # Seg Neutrophils % Seg Neuts % (Manual) 95.0 H Lymphocytes % (Manual) 3.0 L Seg Neutrophils # Seg Neutrophils # Man 12.8 H Lymphocytes # (Manual) 0.4 L POC ABG pH POC ABG pCO2 POC ABG pO2 Sodium Potassium Chloride Carbon Dioxide BUN Creatinine Glucose POC Glucose > 500 H Lactic Acid 7.80 H* Calcium Ionized Calcium Alkaline Phosphatase Lactate Dehydrogenase CK-MB (CK-2) Troponin T C-Reactive Protein Total Protein Albumin LDL Cholesterol Direct Fluid Total Protein Salicylates 07/02/17 07/02/17 07/02/17 20:29 21:31 23:38 WBC RBC Hgb Hct MCV MCHC RDW Plt Count Lymph % (Auto) [place] % (Auto) Lymph # [place] # Seg Neutrophils % Seg Neuts % (Manual) Lymphocytes % (Manual) Seg Neutrophils # Seg Neutrophils # Man Lymphocytes # (Manual) POC ABG pH POC ABG pCO2 POC ABG pO2 Sodium 129 L 132 L Potassium Chloride 87.2 L 93.7 L Carbon Dioxide 18 L 15 L BUN 51 H 47 H Creatinine 4.3 H 4.1 H Glucose 950 H* 825 H* POC Glucose Lactic Acid 5.70 H* Calcium 7.1 L 6.8 L Ionized Calcium Alkaline Phosphatase Lactate Dehydrogenase CK-MB (CK-2) Troponin T C-Reactive Protein Total Protein Albumin LDL Cholesterol Direct Fluid Total Protein Salicylates 07/02/17 07/02/17 07/02/17 23:38 23:44 Unknown WBC RBC Hgb Hct MCV MCHC RDW Plt Count Lymph % (Auto) [place] % (Auto) Lymph # [place] # Seg Neutrophils % Seg Neuts % (Manual) Lymphocytes % (Manual) Seg Neutrophils # Seg Neutrophils # Man Lymphocytes # (Manual) POC ABG pH POC ABG pCO2 POC ABG pO2 Sodium 132 L 125 L D Potassium Chloride 94.6 L 85.6 L Carbon Dioxide 17 L 19 L D BUN 51 H 50 H Creatinine 4.1 H 4.4 H D Glucose 772 H* 1113 H* POC Glucose > 500 H Lactic Acid Calcium 6.7 L 7.2 L Ionized Calcium Alkaline Phosphatase 139 H Lactate Dehydrogenase CK-MB (CK-2) Troponin T C-Reactive Protein Total Protein 6.1 L Albumin 3.3 L LDL Cholesterol Direct Fluid Total Protein Salicylates 07/02/17 07/02/17 07/03/17 Unknown Unknown 01:00 WBC RBC Hgb Hct MCV MCHC RDW Plt Count Lymph % (Auto) [place] % (Auto) Lymph # [place] # Seg Neutrophils % Seg Neuts % (Manual) Lymphocytes % (Manual) Seg Neutrophils # Seg Neutrophils # Man Lymphocytes # (Manual) POC ABG pH POC ABG pCO2 POC ABG pO2 Sodium 134 L Potassium Chloride 96.4 L Carbon Dioxide 19 L BUN 50 H Creatinine 4.0 H Glucose 677 H* POC Glucose Lactic Acid 6.30 H* Calcium 6.6 L Ionized Calcium Alkaline Phosphatase Lactate Dehydrogenase CK-MB (CK-2) Troponin T C-Reactive Protein Total Protein Albumin LDL Cholesterol Direct Fluid Total Protein Salicylates < 0.3 L 07/03/17 07/03/17 07/03/17 01:04 02:15 02:15 WBC RBC Hgb Hct MCV MCHC RDW Plt Count Lymph % (Auto) [place] % (Auto) Lymph # [place] # Seg Neutrophils % Seg Neuts % (Manual) Lymphocytes % (Manual) Seg Neutrophils # Seg Neutrophils # Man Lymphocytes # (Manual) POC ABG pH POC ABG pCO2 POC ABG pO2 Sodium 134 L Potassium Chloride 97.6 L Carbon Dioxide 19 L BUN 50 H Creatinine 4.2 H Glucose 592 H* POC Glucose > 500 H Lactic Acid 4.30 H* Calcium 6.6 L Ionized Calcium Alkaline Phosphatase Lactate Dehydrogenase CK-MB (CK-2) Troponin T C-Reactive Protein Total Protein Albumin LDL Cholesterol Direct Fluid Total Protein Salicylates 07/03/17 07/03/17 07/03/17 02:21 03:25 04:10 WBC RBC Hgb Hct MCV MCHC RDW Plt Count Lymph % (Auto) [place] % (Auto) Lymph # [place] # Seg Neutrophils % Seg Neuts % (Manual) Lymphocytes % (Manual) Seg Neutrophils # Seg Neutrophils # Man Lymphocytes # (Manual) POC ABG pH POC ABG pCO2 POC ABG pO2 Sodium Potassium Chloride Carbon Dioxide 19 L BUN 50 H Creatinine 4.0 H Glucose 416 H POC Glucose 482 H > 500 H Lactic Acid Calcium 6.8 L Ionized Calcium Alkaline Phosphatase Lactate Dehydrogenase CK-MB (CK-2) Troponin T C-Reactive Protein Total Protein Albumin LDL Cholesterol Direct Fluid Total Protein Salicylates 07/03/17 07/03/17 07/03/17 04:30 04:36 05:33 WBC RBC Hgb Hct MCV MCHC RDW Plt Count Lymph % (Auto) [place] % (Auto) Lymph # [place] # Seg Neutrophils % Seg Neuts % (Manual) Lymphocytes % (Manual) Seg Neutrophils # Seg Neutrophils # Man Lymphocytes # (Manual) POC ABG pH 7.311 L POC ABG pCO2 33.5 L POC ABG pO2 73 L Sodium Potassium Chloride Carbon Dioxide BUN Creatinine Glucose POC Glucose 389 H 326 H Lactic Acid Calcium Ionized Calcium Alkaline Phosphatase Lactate Dehydrogenase CK-MB (CK-2) Troponin T C-Reactive Protein Total Protein Albumin LDL Cholesterol Direct Fluid Total Protein Salicylates 07/03/17 07/03/17 07/03/17 06:06 07:38 09:58 WBC RBC Hgb Hct MCV MCHC RDW Plt Count Lymph % (Auto) [place] % (Auto) Lymph # [place] # Seg Neutrophils % Seg Neuts % (Manual) Lymphocytes % (Manual) Seg Neutrophils # Seg Neutrophils # Man Lymphocytes # (Manual) POC ABG pH POC ABG pCO2 POC ABG pO2 Sodium Potassium Chloride Carbon Dioxide BUN Creatinine Glucose POC Glucose 247 H 118 H 52 L Lactic Acid Calcium Ionized Calcium Alkaline Phosphatase Lactate Dehydrogenase CK-MB (CK-2) Troponin T C-Reactive Protein Total Protein Albumin LDL Cholesterol Direct Fluid Total Protein Salicylates 07/03/17 07/03/17 07/03/17 11:00 13:16 15:02 WBC RBC Hgb Hct MCV MCHC RDW Plt Count Lymph % (Auto) [place] % (Auto) Lymph # [place] # Seg Neutrophils % Seg Neuts % (Manual) Lymphocytes % (Manual) Seg Neutrophils # Seg Neutrophils # Man Lymphocytes # (Manual) POC ABG pH POC ABG pCO2 POC ABG pO2 Sodium Potassium Chloride Carbon Dioxide BUN Creatinine Glucose POC Glucose 64 L 112 H 158 H Lactic Acid Calcium Ionized Calcium Alkaline Phosphatase Lactate Dehydrogenase CK-MB (CK-2) Troponin T C-Reactive Protein Total Protein Albumin LDL Cholesterol Direct Fluid Total Protein Salicylates 07/03/17 07/03/17 07/03/17 18:17 Unknown Unknown WBC RBC Hgb Hct MCV MCHC RDW Plt Count Lymph % (Auto) [place] % (Auto) Lymph # [place] # Seg Neutrophils % Seg Neuts % (Manual) Lymphocytes % (Manual) Seg Neutrophils # Seg Neutrophils # Man Lymphocytes # (Manual) POC ABG pH POC ABG pCO2 POC ABG pO2 Sodium Potassium Chloride Carbon Dioxide BUN Creatinine Glucose POC Glucose 131 H Lactic Acid 2.40 H* Calcium Ionized Calcium Alkaline Phosphatase Lactate Dehydrogenase CK-MB (CK-2) Troponin T C-Reactive Protein 1.90 H Total Protein Albumin LDL Cholesterol Direct Fluid Total Protein Salicylates 07/03/17 07/04/17 07/04/17 Unknown 00:13 02:04 WBC RBC Hgb Hct MCV MCHC RDW Plt Count Lymph % (Auto) [place] % (Auto) Lymph # [place] # Seg Neutrophils % Seg Neuts % (Manual) Lymphocytes % (Manual) Seg Neutrophils # Seg Neutrophils # Man Lymphocytes # (Manual) POC ABG pH POC ABG pCO2 POC ABG pO2 Sodium Potassium Chloride Carbon Dioxide BUN 52 H Creatinine 4.3 H Glucose POC Glucose 69 L 111 H Lactic Acid Calcium 7.2 L Ionized Calcium Alkaline Phosphatase Lactate Dehydrogenase CK-MB (CK-2) Troponin T C-Reactive Protein Total Protein Albumin LDL Cholesterol Direct Fluid Total Protein Salicylates 07/04/17 07/04/17 07/04/17 04:38 08:00 08:00 WBC 28.3 H RBC 3.55 L Hgb 10.3 L Hct 31.2 L MCV MCHC RDW 15.3 H Plt Count 101 L Lymph % (Auto) [place] % (Auto) Lymph # [place] # Seg Neutrophils % Seg Neuts % (Manual) Lymphocytes % (Manual) Seg Neutrophils # Seg Neutrophils # Man Lymphocytes # (Manual) POC ABG pH POC ABG pCO2 27.6 L POC ABG pO2 Sodium Potassium Chloride Carbon Dioxide 20 L BUN 62 H Creatinine 4.7 H Glucose POC Glucose Lactic Acid Calcium 7.0 L Ionized Calcium Alkaline Phosphatase Lactate Dehydrogenase CK-MB (CK-2) Troponin T C-Reactive Protein Total Protein Albumin LDL Cholesterol Direct Fluid Total Protein Salicylates 07/04/17 07/04/17 07/04/17 14:10 14:10 14:33 WBC RBC Hgb Hct MCV MCHC RDW Plt Count Lymph % (Auto) [place] % (Auto) Lymph # [place] # Seg Neutrophils % Seg Neuts % (Manual) Lymphocytes % (Manual) Seg Neutrophils # Seg Neutrophils # Man Lymphocytes # (Manual) POC ABG pH 7.474 H POC ABG pCO2 29.4 L POC ABG pO2 Sodium Potassium Chloride Carbon Dioxide BUN Creatinine Glucose POC Glucose Lactic Acid Calcium Ionized Calcium 4.6 L Alkaline Phosphatase Lactate Dehydrogenase CK-MB (CK-2) 4.3 H Troponin T 0.282 H* C-Reactive Protein Total Protein Albumin LDL Cholesterol Direct 22 L Fluid Total Protein Salicylates 1107/04/17 07/04/17 17:26 20:40 23:34 WBC RBC Hgb Hct MCV MCHC RDW Plt Count Lymph % (Auto) [place] % (Auto) Lymph # [place] # Seg Neutrophils % Seg Neuts % (Manual) Lymphocytes % (Manual) Seg Neutrophils # Seg Neutrophils # Man Lymphocytes # (Manual) POC ABG pH POC ABG pCO2 POC ABG pO2 Sodium Potassium Chloride Carbon Dioxide BUN Creatinine Glucose POC Glucose 201 H 188 H Lactic Acid Calcium Ionized Calcium Alkaline Phosphatase Lactate Dehydrogenase CK-MB (CK-2) Troponin T 0.276 H* C-Reactive Protein Total Protein Albumin LDL Cholesterol Direct Fluid Total Protein Salicylates 07/05/17 07/05/17 07/05/17 05:42 07:50 11:52 WBC RBC Hgb Hct MCV MCHC RDW Plt Count Lymph % (Auto) [place] % (Auto) Lymph # [place] # Seg Neutrophils % Seg Neuts % (Manual) Lymphocytes % (Manual) Seg Neutrophils # Seg Neutrophils # Man Lymphocytes # (Manual) POC ABG pH POC ABG pCO2 POC ABG pO2 117 H Sodium Potassium Chloride Carbon Dioxide BUN Creatinine Glucose POC Glucose 126 H 110 H Lactic Acid Calcium Ionized Calcium Alkaline Phosphatase Lactate Dehydrogenase CK-MB (CK-2) Troponin T C-Reactive Protein Total Protein Albumin LDL Cholesterol Direct Fluid Total Protein Salicylates 07/05/17 07/05/17 07/05/17 12:40 17:51 18:12 WBC RBC Hgb Hct MCV MCHC RDW Plt Count Lymph % (Auto) [place] % (Auto) Lymph # [place] # Seg Neutrophils % Seg Neuts % (Manual) Lymphocytes % (Manual) Seg Neutrophils # Seg Neutrophils # Man Lymphocytes # (Manual) POC ABG pH POC ABG pCO2 POC ABG pO2 Sodium Potassium Chloride Carbon Dioxide BUN Creatinine Glucose POC Glucose 57 L 69 L Lactic Acid Calcium Ionized Calcium Alkaline Phosphatase Lactate Dehydrogenase CK-MB (CK-2) Troponin T 0.277 H* C-Reactive Protein Total Protein Albumin LDL Cholesterol Direct Fluid Total Protein Salicylates 07/05/17 07/05/17 07/05/17 Unknown Unknown Unknown WBC 22.2 H RBC 3.24 L Hgb 9.7 L Hct 28.6 L MCV MCHC RDW Plt Count 89 L Lymph % (Auto) [place] % (Auto) Lymph # [place] # Seg Neutrophils % Seg Neuts % (Manual) 89.0 H Lymphocytes % (Manual) 7.0 L Seg Neutrophils # Seg Neutrophils # Man 19.8 H Lymphocytes # (Manual) POC ABG pH POC ABG pCO2 POC ABG pO2 Sodium Potassium 3.5 L Chloride Carbon Dioxide BUN 37 H Creatinine 3.1 H Glucose 120 H POC Glucose Lactic Acid 2.30 H* Calcium 7.7 L Ionized Calcium Alkaline Phosphatase Lactate Dehydrogenase CK-MB (CK-2) Troponin T C-Reactive Protein Total Protein Albumin LDL Cholesterol Direct Fluid Total Protein Salicylates 07/05/17 07/06/17 07/06/17 Unknown 03:25 03:25 WBC 17.7 H RBC 3.14 L Hgb 9.3 L Hct 27.8 L MCV MCHC RDW 15.7 H Plt Count 82 L Lymph % (Auto) 2.5 L [place] % (Auto) Lymph # 0.4 L [place] # 1.1 H Seg Neutrophils % 90.0 H Seg Neuts % (Manual) Lymphocytes % (Manual) Seg Neutrophils # 15.9 H Seg Neutrophils # Man Lymphocytes # (Manual) POC ABG pH POC ABG pCO2 POC ABG pO2 Sodium Potassium 3.3 L Chloride Carbon Dioxide BUN 44 H Creatinine 3.6 H Glucose 132 H POC Glucose Lactic Acid Calcium 7.4 L Ionized Calcium Alkaline Phosphatase Lactate Dehydrogenase CK-MB (CK-2) Troponin T C-Reactive Protein 9.90 H Total Protein Albumin LDL Cholesterol Direct Fluid Total Protein Salicylates 07/06/17 07/06/17 07/06/17 04:19 05:24 08:30 WBC RBC Hgb Hct MCV MCHC RDW Plt Count Lymph % (Auto) [place] % (Auto) Lymph # [place] # Seg Neutrophils % Seg Neuts % (Manual) Lymphocytes % (Manual) Seg Neutrophils # Seg Neutrophils # Man Lymphocytes # (Manual) POC ABG pH POC ABG pCO2 34.3 L POC ABG pO2 Sodium Potassium Chloride Carbon Dioxide BUN Creatinine Glucose POC Glucose 174 H Lactic Acid Calcium Ionized Calcium Alkaline Phosphatase Lactate Dehydrogenase 880 H CK-MB (CK-2) Troponin T C-Reactive Protein Total Protein 4.9 L Albumin LDL Cholesterol Direct Fluid Total Protein Salicylates 07/06/17 07/06/17 07/06/17 11:13 17:14 23:38 WBC RBC Hgb Hct MCV MCHC RDW Plt Count Lymph % (Auto) [place] % (Auto) Lymph # [place] # Seg Neutrophils % Seg Neuts % (Manual) Lymphocytes % (Manual) Seg Neutrophils # Seg Neutrophils # Man Lymphocytes # (Manual) POC ABG pH POC ABG pCO2 POC ABG pO2 Sodium Potassium Chloride Carbon Dioxide BUN Creatinine Glucose POC Glucose 216 H 211 H 122 H Lactic Acid Calcium Ionized Calcium Alkaline Phosphatase Lactate Dehydrogenase CK-MB (CK-2) Troponin T C-Reactive Protein Total Protein Albumin LDL Cholesterol Direct Fluid Total Protein Salicylates 07/06/17 07/07/17 07/07/17 Unknown 04:38 05:00 WBC 16.1 H RBC 3.00 L Hgb 8.9 L Hct 26.6 L MCV MCHC RDW 15.6 H Plt Count 106 L Lymph % (Auto) 4.1 L [place] % (Auto) 8.0 H Lymph # 0.7 L [place] # 1.3 H Seg Neutrophils % 86.6 H Seg Neuts % (Manual) Lymphocytes % (Manual) Seg Neutrophils # 13.9 H Seg Neutrophils # Man Lymphocytes # (Manual) POC ABG pH 7.455 H POC ABG pCO2 POC ABG pO2 134 H Sodium Potassium Chloride Carbon Dioxide BUN Creatinine Glucose POC Glucose Lactic Acid Calcium Ionized Calcium Alkaline Phosphatase Lactate Dehydrogenase CK-MB (CK-2) Troponin T C-Reactive Protein Total Protein Albumin LDL Cholesterol Direct Fluid Total Protein < 3.0 L Salicylates 07/07/17 07/07/17 07/07/17 05:00 05:17 11:33 WBC RBC Hgb Hct MCV MCHC RDW Plt Count Lymph % (Auto) [place] % (Auto) Lymph # [place] # Seg Neutrophils % Seg Neuts % (Manual) Lymphocytes % (Manual) Seg Neutrophils # Seg Neutrophils # Man Lymphocytes # (Manual) POC ABG pH POC ABG pCO2 POC ABG pO2 Sodium Potassium Chloride Carbon Dioxide BUN 30 H Creatinine 2.8 H Glucose 188 H POC Glucose 189 H 275 H Lactic Acid Calcium 7.9 L Ionized Calcium Alkaline Phosphatase Lactate Dehydrogenase CK-MB (CK-2) Troponin T C-Reactive Protein Total Protein Albumin LDL Cholesterol Direct Fluid Total Protein Salicylates 07/07/17 07/07/17 07/07/17 16:04 17:08 23:45 WBC RBC Hgb Hct MCV MCHC RDW Plt Count Lymph % (Auto) [place] % (Auto) Lymph # [place] # Seg Neutrophils % Seg Neuts % (Manual) Lymphocytes % (Manual) Seg Neutrophils # Seg Neutrophils # Man Lymphocytes # (Manual) POC ABG pH POC ABG pCO2 POC ABG pO2 126 H Sodium Potassium Chloride Carbon Dioxide BUN Creatinine Glucose POC Glucose 241 H 118 H Lactic Acid Calcium Ionized Calcium Alkaline Phosphatase Lactate Dehydrogenase CK-MB (CK-2) Troponin T C-Reactive Protein Total Protein Albumin LDL Cholesterol Direct Fluid Total Protein Salicylates 07/08/17 07/08/17 07/08/17 05:30 05:54 06:12 WBC 17.0 H RBC 3.27 L Hgb 9.5 L Hct 29.1 L MCV MCHC RDW 15.6 H Plt Count 133 L Lymph % (Auto) 4.6 L [place] % (Auto) 9.2 H Lymph # 0.8 L [place] # 1.6 H Seg Neutrophils % 83.9 H Seg Neuts % (Manual) Lymphocytes % (Manual) Seg Neutrophils # 14.3 H Seg Neutrophils # Man Lymphocytes # (Manual) POC ABG pH 7.477 H POC ABG pCO2 POC ABG pO2 118 H Sodium Potassium Chloride Carbon Dioxide BUN Creatinine Glucose POC Glucose 199 H Lactic Acid Calcium Ionized Calcium Alkaline Phosphatase Lactate Dehydrogenase CK-MB (CK-2) Troponin T C-Reactive Protein Total Protein Albumin LDL Cholesterol Direct Fluid Total Protein Salicylates 07/08/17 07/08/17 07/08/17 06:12 11:37 17:21 WBC RBC Hgb Hct MCV MCHC RDW Plt Count Lymph % (Auto) [place] % (Auto) Lymph # [place] # Seg Neutrophils % Seg Neuts % (Manual) Lymphocytes % (Manual) Seg Neutrophils # Seg Neutrophils # Man Lymphocytes # (Manual) POC ABG pH POC ABG pCO2 POC ABG pO2 Sodium Potassium Chloride Carbon Dioxide BUN 44 H Creatinine 3.4 H Glucose 190 H POC Glucose 236 H 186 H Lactic Acid Calcium 7.8 L Ionized Calcium Alkaline Phosphatase Lactate Dehydrogenase CK-MB (CK-2) Troponin T C-Reactive Protein Total Protein Albumin LDL Cholesterol Direct Fluid Total Protein Salicylates 07/08/17 07/09/17 07/09/17 23:09 04:27 05:02 WBC 17.8 H RBC 2.88 L Hgb 8.5 L Hct 25.6 L MCV MCHC RDW 15.5 H Plt Count Lymph % (Auto) 4.6 L [place] % (Auto) 10.2 H Lymph # 0.8 L [place] # 1.8 H Seg Neutrophils % 83.4 H Seg Neuts % (Manual) Lymphocytes % (Manual) Seg Neutrophils # 14.8 H Seg Neutrophils # Man Lymphocytes # (Manual) POC ABG pH POC ABG pCO2 POC ABG pO2 132 H Sodium Potassium Chloride Carbon Dioxide BUN Creatinine Glucose POC Glucose 203 H Lactic Acid Calcium Ionized Calcium Alkaline Phosphatase Lactate Dehydrogenase CK-MB (CK-2) Troponin T C-Reactive Protein Total Protein Albumin LDL Cholesterol Direct Fluid Total Protein Salicylates 07/09/17 07/09/17 07/09/17 05:02 05:33 18:54 WBC RBC Hgb Hct MCV MCHC RDW Plt Count Lymph % (Auto) [place] % (Auto) Lymph # [place] # Seg Neutrophils % Seg Neuts % (Manual) Lymphocytes % (Manual) Seg Neutrophils # Seg Neutrophils # Man Lymphocytes # (Manual) POC ABG pH POC ABG pCO2 POC ABG pO2 Sodium Potassium Chloride Carbon Dioxide BUN 61 H Creatinine 4.0 H Glucose 183 H POC Glucose 177 H 178 H Lactic Acid Calcium 7.6 L Ionized Calcium Alkaline Phosphatase Lactate Dehydrogenase CK-MB (CK-2) Troponin T C-Reactive Protein Total Protein Albumin LDL Cholesterol Direct Fluid Total Protein Salicylates 07/10/17 07/10/17 07/10/17 03:50 03:50 05:41 WBC 16.8 H RBC 2.77 L Hgb 8.1 L Hct 24.9 L MCV MCHC RDW 15.7 H Plt Count Lymph % (Auto) 4.3 L [place] % (Auto) 10.8 H Lymph # 0.7 L [place] # 1.8 H Seg Neutrophils % 83.5 H Seg Neuts % (Manual) Lymphocytes % (Manual) Seg Neutrophils # 14.1 H Seg Neutrophils # Man Lymphocytes # (Manual) POC ABG pH POC ABG pCO2 POC ABG pO2 Sodium Potassium Chloride Carbon Dioxide BUN 31 H Creatinine 2.5 H Glucose 129 H POC Glucose 160 H Lactic Acid Calcium 8.1 L Ionized Calcium Alkaline Phosphatase Lactate Dehydrogenase CK-MB (CK-2) Troponin T C-Reactive Protein Total Protein Albumin LDL Cholesterol Direct Fluid Total Protein Salicylates Allied health notes reviewed: nursing Critical care time in (mins) excluding proc time.: 31 Critical care attestation.: If time is entered above; I have spent that time in minutes in the direct care of this critically ill patient, excluding procedure time.
--- NOTE | 2017-07-10 09:13 | Progress Note ---
Assessment and Plan Impression: * End stage renal disease on HD * Cardiac arrest * Acute hypoxic respiratory failure on mechanical ventilation * Seizure disorder, new onset * Sepsis * DM s/p DKA Plan: * Hemodialysis MWF schedule * UF as tolerated. Ca bath adjusted * Vent management per Pulm/CCM * Empiric abx * Neuro work up in progress * Adjust medications for renal function Subjective Date of service: 07/10/17 Principal diagnosis: Acute Hypoxemic Resp Failure; S/P Cardiac Arrest; Hyperosmolar Non-ketotic Interval history: resting in bed today Objective - Exam Narrative Exam: General appearance: intubated EENT: ATNC, other (ETT in place) Respiratory: Present: Other (coarse breath sounds) Cardiology: regular, S1S2 Gastrointestinal: no tenderness, no distended Integumentary: no rash Neurologic: other (does not respond to tactile/verbal stimuli) Musculoskeletal: prevertebral tenderness, other (no edema) - Vital Signs Vital signs: Vital Signs - 12hr 07/09/17 07/09/17 07/09/17 21:30 21:35 22:00 Temperature Pulse Rate 99 H 98 H 101 H Pulse Rate [ Anterior Bilateral Throughout] Pulse Rate [ From Monitor] Respiratory 13 12 Rate Respiratory Rate [Anterior Bilateral Throughout] Blood Pressure 143/71 143/71 140/70 O2 Sat by Pulse 100 100 Oximetry 07/09/17 07/09/17 07/09/17 22:30 22:44 23:00 Temperature Pulse Rate 96 H 96 H 95 H Pulse Rate [ Anterior Bilateral Throughout] Pulse Rate [ From Monitor] Respiratory 12 13 13 Rate Respiratory Rate [Anterior Bilateral Throughout] Blood Pressure 140/70 130/71 131/64 O2 Sat by Pulse 100 100 100 Oximetry 07/09/17 07/09/17 07/09/17 23:24 23:26 23:30 Temperature Pulse Rate 95 H 95 H Pulse Rate [ 96 H Anterior Bilateral Throughout] Pulse Rate [ From Monitor] Respiratory 13 Rate Respiratory 12 Rate [Anterior Bilateral Throughout] Blood Pressure 130/69 137/71 O2 Sat by Pulse 100 100 Oximetry 07/09/17 07/09/17 07/10/17 23:36 23:39 00:00 Temperature 99.3 F Pulse Rate 90 Pulse Rate [ 93 H Anterior Bilateral Throughout] Pulse Rate [ From Monitor] Respiratory 12 Rate Respiratory 16 Rate [Anterior Bilateral Throughout] Blood Pressure 124/62 O2 Sat by Pulse 100 Oximetry 07/10/17 07/10/17 07/10/17 00:26 00:30 01:00 Temperature Pulse Rate 95 H 95 H Pulse Rate [ Anterior Bilateral Throughout] Pulse Rate [ 93 H From Monitor] Respiratory 12 13 12 Rate Respiratory Rate [Anterior Bilateral Throughout] Blood Pressure 134/65 136/65 O2 Sat by Pulse 100 100 100 Oximetry 07/10/17 07/10/17 07/10/17 01:30 02:00 02:30 Temperature Pulse Rate 95 H 94 H 94 H Pulse Rate [ Anterior Bilateral Throughout] Pulse Rate [ From Monitor] Respiratory 11 L 12 11 L Rate Respiratory Rate [Anterior Bilateral Throughout] Blood Pressure 136/69 137/65 137/69 O2 Sat by Pulse 100 100 100 Oximetry 07/10/17 07/10/17 07/10/17 03:00 03:07 03:30 Temperature Pulse Rate 93 H 93 H 94 H Pulse Rate [ Anterior Bilateral Throughout] Pulse Rate [ From Monitor] Respiratory 11 L 12 Rate Respiratory Rate [Anterior Bilateral Throughout] Blood Pressure 139/65 139/65 140/67 O2 Sat by Pulse 100 100 100 Oximetry 07/10/17 07/10/17 07/10/17 03:39 04:00 04:15 Temperature 99.1 F Pulse Rate 92 H Pulse Rate [ Anterior Bilateral Throughout] Pulse Rate [ 93 H From Monitor] Respiratory 12 12 Rate Respiratory Rate [Anterior Bilateral Throughout] Blood Pressure 126/60 O2 Sat by Pulse 100 100 Oximetry 07/10/17 07/10/17 07/10/17 04:30 05:00 05:30 Temperature Pulse Rate 91 H 91 H 91 H Pulse Rate [ Anterior Bilateral Throughout] Pulse Rate [ From Monitor] Respiratory 12 12 12 Rate Respiratory Rate [Anterior Bilateral Throughout] Blood Pressure 139/66 138/67 138/66 O2 Sat by Pulse 100 100 100 Oximetry 07/10/17 07/10/17 07/10/17 06:00 06:30 07:00 Temperature Pulse Rate 91 H 97 H 93 H Pulse Rate [ Anterior Bilateral Throughout] Pulse Rate [ From Monitor] Respiratory 12 12 12 Rate Respiratory Rate [Anterior Bilateral Throughout] Blood Pressure 135/64 139/68 134/66 O2 Sat by Pulse 100 100 100 Oximetry 07/10/17 07/10/17 07:30 08:00 Temperature 98.3 F Pulse Rate 92 H 92 H Pulse Rate [ Anterior Bilateral Throughout] Pulse Rate [ 92 H From Monitor] Respiratory 12 12 Rate Respiratory Rate [Anterior Bilateral Throughout] Blood Pressure 139/68 138/66 O2 Sat by Pulse 100 100 Oximetry - Lab 07/10/17 03:50 07/10/17 03:50 Most recent lab results Calcium 8.1 mg/dL (8.4-10.2) L 07/10/17 03:50 Phosphorus 3.80 mg/dL (2.5-4.5) 07/04/17 14:10 Magnesium 1.80 mg/dL (1.7-2.3) 07/04/17 14:10
--- NOTE | 2017-07-10 09:32 | Progress Note ---
Assessment and Plan Assessment: S/p cardiopulmonary arrest - PEA in ED; intubated; currently in SR on tele with no arrhythmias noted on tele since ICU admission NSTEMI type II - flat; repeat EKG with no acute ischemic changes. AMS - ? anoxic brain injury; head CT with NAF DKA Seizure d/o HTN DM / Hyperosmolar non ketotic state Lactic acidosis / leukocytosis / ? sepsis Hyponatremia - improved Anemia Thrombocytopenia - improving Plan: Cont present cardiac regimen. Cont supportive management. Plan for ischemic evaluation once medically stabilized. The patient has been seen in conjunction with Dr. Artis who agrees with the assessment and plan of care. Subjective Date of service: 07/10/17 Principal diagnosis: Acute Hypoxemic Resp Failure; S/P Cardiac Arrest; Hyperosmolar Non-ketotic Interval history: pt remains intubated, eyes open, no purposeful responses noted, off pressors. Objective Last Vital Signs Temp 98.3 F 07/10/17 08:00 Pulse 92 H 07/10/17 08:00 Resp 12 07/10/17 08:00 BP 138/66 07/10/17 08:00 Pulse Ox 100 07/10/17 08:00 - Physical Examination General: Other (intubated, unresponsive) HEENT: Positive: PERRL Neck: Positive: neck supple Cardiac: Positive: Reg Rate and Rhythm, S1/S2 Lungs: Positive: Decreased Breath Sounds, Ventilated Respirations Neuro: Positive: Other (intubated, unresponsive) Abdomen: Positive: Active Bowel Sounds Skin: Positive: Clear. Negative: Rash, Wound Musculoskeletal: No Fluid Collection, No Pain, Normal Range of Motion Extremities: Absent: edema - Labs and Meds CBC 07/10/17 Range/Units 03:50 WBC 16.8 H (4.5-11.0) K/mm3 RBC 2.77 L (3.65-5.03) M/mm3 Hgb 8.1 L (11.8-15.2) gm/dl Hct 24.9 L (35.5-45.6) % Plt Count 156 (140-440) K/mm3 Lymph # 0.7 L (1.2-5.4) K/mm3 [place] # 1.8 H (0.0-0.8) K/mm3 Eos # 0.2 (0.0-0.4) K/mm3 Baso # 0.0 (0.0-0.1) K/mm3 Comprehensive Metabolic Panel 07/10/17 Range/Units 03:50 Sodium 139 (137-145) mmol/L Potassium 4.2 (3.6-5.0) mmol/L Chloride 102.7 (98-107) mmol/L Carbon Dioxide 25 (22-30) mmol/L BUN 31 H (9-20) mg/dL Creatinine 2.5 H (0.8-1.5) mg/dL Glucose 129 H (75-100) mg/dL Calcium 8.1 L (8.4-10.2) mg/dL - Imaging and Cardiology EKG: report reviewed, image reviewed Echo: report reviewed (06/27/2017 showed EF 50-55%, mild LVH, impaired relaxation , RA mildly dilated, mild MR, mild pulm HTN with RVSP 45mmHg, moderate pleural fluid) - EKG Sinus rhythms and dysrhythmias: sinus rhythm AV and intraventricular conduction: right bundle branch block - Allied health notes Allied health notes reviewed: nursing
[2017-07-10] MEDS: LEVEMIR SUB-Q SCH (09:44)
[2017-07-10] MEDS: HEPARIN SUB-Q SCH ×2 (09:45→21:52)
[2017-07-10] MEDS: FERROUS SULFATE PO SCH ×2 (09:45→21:53)
[2017-07-10] MEDS: ROCALTROL PO SCH (09:45)
[2017-07-10] MEDS: FOLVITE PO SCH (09:45)
[2017-07-10] MEDS: NORVASC PO SCH (09:46)
[2017-07-10] MEDS: THERAGRAN-M Tab PO SCH (09:46)
[2017-07-10] MEDS: COREG PO SCH ×2 (09:49→21:53)
[2017-07-10] MEDS: ASPIRIN PO SCH (09:50)
[2017-07-10] MEDS: PEPCID PO SCH (09:50)
[2017-07-10] MEDS: DUONEB *Not for PRN Use IH SCH ×3 (09:50→23:51)
[2017-07-10 10:26] LABS: Basophils % (Auto) 0.3 % (0.0-1.8); Eosinophils % (Auto) 1.3 % (0.0-4.3); Hematocrit 23.5 % (35.5-45.6); Hemoglobin 7.9 gm/dl (11.8-15.2); Mean Corpuscular HGB Conc 33 % (32-34); Mean Corpuscular Hemoglobin 30 pg (28-32); Mean Corpuscular Volume 88 fl (84-94); Platelet Count 164 K/mm3 (140-440); Red Blood Count 2.66 M/mm3 (3.65-5.03); Red Cell Distribution Width 16.1 % (13.2-15.2); White Blood Count 16.3 K/mm3 (4.5-11.0)
[2017-07-10 10:47] LABS: Calcium 7.9 mg/dL (8.4-10.2); Chloride 102.3 mmol/L (98-107); Potassium 4.2 mmol/L (3.6-5.0)
--- NOTE | 2017-07-10 11:20 | Progress Note ---
Assessment and Plan Assessment: 1) Shock after cardiac arrest (? cardiogenic ?hypovolemic ?septic): shock resolved. Still leukocytosis. Septic component etiology unclear ? colitis (CT abd negative). CRP=9 2) Seizures ? 3) DM-uncontrolled with DKA 4) ESRD on HD 5) Anemia / thrombocytopenia 6) Bloody Diarrhea versus melena ? colitis ?GI bleed. Hemo-occult + Plan: -follow-up procalcitonin -continue flagyl IV/ PO day 5 of 10 -contact isolation Thank you Dr Moore for your consultation, will follow up with you. Laura Crocker MD Infectious Diseases Specialist [facility] ([facility]) M [phone] O [phone] Subjective Date of service: 07/10/17 Principal diagnosis: Acute Hypoxemic Resp Failure; S/P Cardiac Arrest; Hyperosmolar Non-ketotic Interval history: Remains on the vent, opens eyes not tracking, +T feeds + black loose stools on flexiseal. Microbiology: Blood cultures: 07/02 ngtd Urine cultures: Respiratory cultures: 07/02 Sandra Pleural fluid 07/06: ngtd Current Antimicrobials: metronidazole 07/06 Previous Antimicrobials: Zosyn 07/02 Vanco 07/02 Objective - Exam Narrative Exam: General appearance: sedated on the vent Eyes: anicteric sclerae, moist conjunctivae; no lid-lag; PERRLA HENT: Atraumatic; oropharynx +ETT +NGT Neck: Trachea midline; supple, no thyromegaly or lymphadenopathy Lungs: CTA, CV: rrr Abdomen: Soft, non-tender Extremities: peripheral edema Skin: Normal temperature, turgor and texture; no rash, ulcers or subcutaneous nodules Psych: unable to eval . Neuro: unable to eval Lines: right IJ HD - Constitutional Vitals: Vital Signs Temp Pulse Resp BP Pulse Ox 98.3 F 92 H 12 143/74 100 07/10/17 08:00 07/10/17 10:30 07/10/17 10:30 07/10/17 10:30 07/10/17 10:30 Temperature -Last 24 Hours Temperature 98.3 F Temperature 99.1 F Temperature 99.3 F Temperature 99.1 F Temperature 99.1 F Temperature 98.3 F Temperature 98.3 F Temperature 98.7 F - Labs CBC & Chem 7: 07/10/17 10:07 07/10/17 10:02 Labs: Abnormal lab results 07/06/17 07/09/17 07/10/17 Range/Units Unknown 18:54 03:50 WBC 16.8 H (4.5-11.0) K/mm3 RBC 2.77 L (3.65-5.03) M/mm3 Hgb 8.1 L (11.8-15.2) gm/dl Hct 24.9 L (35.5-45.6) % RDW 15.7 H (13.2-15.2) % Lymph % (Auto) 4.3 L (13.4-35.0) % [place] % (Auto) 10.8 H (0.0-7.3) % Lymph # 0.7 L (1.2-5.4) K/mm3 [place] # 1.8 H (0.0-0.8) K/mm3 Seg Neutrophils % 83.5 H (40.0-70.0) % Seg Neutrophils # 14.1 H (1.8-7.7) K/mm3 BUN (9-20) mg/dL Creatinine (0.8-1.5) mg/dL Glucose (75-100) mg/dL POC Glucose 178 H (70-105) Calcium (8.4-10.2) mg/dL Fluid Total Protein < 3.0 L (15.0-45.0) 07/10/17 07/10/17 07/10/17 Range/Units 03:50 05:41 10:02 WBC (4.5-11.0) K/mm3 RBC (3.65-5.03) M/mm3 Hgb (11.8-15.2) gm/dl Hct (35.5-45.6) % RDW (13.2-15.2) % Lymph % (Auto) (13.4-35.0) % [place] % (Auto) (0.0-7.3) % Lymph # (1.2-5.4) K/mm3 [place] # (0.0-0.8) K/mm3 Seg Neutrophils % (40.0-70.0) % Seg Neutrophils # (1.8-7.7) K/mm3 BUN 31 H 35 H (9-20) mg/dL Creatinine 2.5 H 2.6 H (0.8-1.5) mg/dL Glucose 129 H 196 H (75-100) mg/dL POC Glucose 160 H (70-105) Calcium 8.1 L 7.9 L (8.4-10.2) mg/dL Fluid Total Protein (15.0-45.0) //17 Range/Units 10:07 WBC 16.3 H (4.5-11.0) K/mm3 RBC 2.66 L (3.65-5.03) M/mm3 Hgb 7.9 L (11.8-15.2) gm/dl Hct 23.5 L (35.5-45.6) % RDW 16.1 H (13.2-15.2) % Lymph % (Auto) 4.8 L (13.4-35.0) % [place] % (Auto) 9.6 H (0.0-7.3) % Lymph # 0.8 L (1.2-5.4) K/mm3 [place] # 1.6 H (0.0-0.8) K/mm3 Seg Neutrophils % 84.0 H (40.0-70.0) % Seg Neutrophils # 13.7 H (1.8-7.7) K/mm3 BUN (9-20) mg/dL Creatinine (0.8-1.5) mg/dL Glucose (75-100) mg/dL POC Glucose (70-105) Calcium (8.4-10.2) mg/dL Fluid Total Protein (15.0-45.0)
[2017-07-10 14:57] LABS: ISTAT Base Excess 3; ISTAT PCO2 39.1 (35-45); ISTAT PH 7.448 (7.35-7.45); ISTAT PO2 138 (80-105); ISTAT SO2 99; ISTAT TCO2 28
--- NOTE | 2017-07-10 16:22 | Progress Note ---
Assessment and Plan Assessment and plan: Anoxic brain injury Status post cardiac arrest Seizure disorder Sepsis with hypotension History of diarrhea DKA with diabetic coma - Patient is intubated and on mechanical ventilation, off sedation - Finished antibiotics -Blood pressure is normalized - Patient was treated according to DKA protocol now resolved and on long-acting insulin DVT prophylaxis - Heparin Disposition - Continue ICU care History Interval history: Patient was seen and evaluated this morning, patient in non communicative. Patient is off sedation. Hospitalist Physical - Physical exam Narrative exam: Patient is intubated and on mechanical ventilation. The patient appeared well nourished and normally developed. Vital signs as documented. Head exam is unremarkable. No scleral icterus . Neck is without jugular venous distension, thyromegaly, or carotid bruits. Lungs are clear to auscultation. Cardiac exam reveals regular rate and Rhythm. First and second heart sounds normal. No murmurs, rubs or gallops. Abdominal exam reveals normal bowel sounds, no masses, no organomegaly and no aortic enlargement. Extremities are nonedematous and both femoral and pedal pulses are normal. 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 - Constitutional Vitals: Temp Pulse Resp BP Pulse Ox 98.7 F 87 14 120/62 100 07/10/17 16:00 07/10/17 15:30 07/10/17 15:30 07/10/17 15:30 07/10/17 15:30 General appearance: Present: mild distress, other (intubated, unresponsive) Results - Labs CBC & Chem 7: 07/10/17 10:07 07/10/17 10:02 Labs: Laboratory Last Values WBC 16.3 K/mm3 (4.5-11.0) H 07/10/17 10:07 RBC 2.66 M/mm3 (3.65-5.03) L 07/10/17 10:07 Hgb 7.9 gm/dl (11.8-15.2) L 07/10/17 10:07 Hct 23.5 % (35.5-45.6) L 07/10/17 10:07 MCV 88 fl (84-94) 07/10/17 10:07 MCH 30 pg (28-32) 07/10/17 10:07 MCHC 33 % (32-34) 07/10/17 10:07 RDW 16.1 % (13.2-15.2) H 07/10/17 10:07 Plt Count 164 K/mm3 (140-440) 07/10/17 10:07 Lymph % (Auto) 4.8 % (13.4-35.0) L 07/10/17 10:07 [place] % (Auto) 9.6 % (0.0-7.3) H 07/10/17 10:07 Eos % (Auto) 1.3 % (0.0-4.3) 07/10/17 10:07 Baso % (Auto) 0.3 % (0.0-1.8) 07/10/17 10:07 Lymph # 0.8 K/mm3 (1.2-5.4) L 07/10/17 10:07 [place] # 1.6 K/mm3 (0.0-0.8) H 07/10/17 10:07 Eos # 0.2 K/mm3 (0.0-0.4) 07/10/17 10:07 Baso # 0.0 K/mm3 (0.0-0.1) 07/10/17 10:07 Add Manual Diff Complete 07/05/17 Unknown Total Counted 100 07/05/17 Unknown Seg Neutrophils % 84.0 % (40.0-70.0) H 07/10/17 10:07 Seg Neuts % (Manual) 89.0 % (40.0-70.0) H 07/05/17 Unknown Band Neutrophils % 1.0 % 07/05/17 Unknown Lymphocytes % (Manual) 7.0 % (13.4-35.0) L 07/05/17 Unknown Reactive Lymphs % (Man) 0 % 07/05/17 Unknown Monocytes % (Manual) 3.0 % (0.0-7.3) 07/05/17 Unknown Eosinophils % (Manual) 0 % (0.0-4.3) 07/05/17 Unknown Basophils % (Manual) 0 % (0.0-1.8) 07/05/17 Unknown Metamyelocytes % 0 % 07/05/17 Unknown Myelocytes % 0 % 07/05/17 Unknown Promyelocytes % 0 % 07/05/17 Unknown Blast Cells % 0 % 07/05/17 Unknown Nucleated RBC % Not Reportable 07/05/17 Unknown Seg Neutrophils # 13.7 K/mm3 (1.8-7.7) H 07/10/17 10:07 Seg Neutrophils # Man 19.8 K/mm3 (1.8-7.7) H 07/05/17 Unknown Band Neutrophils # 0.2 K/mm3 07/05/17 Unknown Lymphocytes # (Manual) 1.6 K/mm3 (1.2-5.4) 07/05/17 Unknown Abs React Lymphs (Man) 0.0 K/mm3 07/05/17 Unknown Monocytes # (Manual) 0.7 K/mm3 (0.0-0.8) 07/05/17 Unknown Eosinophils # (Manual) 0.0 K/mm3 (0.0-0.4) 07/05/17 Unknown Basophils # (Manual) 0.0 K/mm3 (0.0-0.1) 07/05/17 Unknown Metamyelocytes # 0.0 K/mm3 07/05/17 Unknown Myelocytes # 0.0 K/mm3 07/05/17 Unknown Promyelocytes # 0.0 K/mm3 07/05/17 Unknown Blast Cells # 0.0 K/mm3 07/05/17 Unknown WBC Morphology Not Reportable 07/05/17 Unknown Hypersegmented Neuts Not Reportable 07/05/17 Unknown Hyposegmented Neuts Not Reportable 07/05/17 Unknown Hypogranular Neuts Not Reportable 07/05/17 Unknown Smudge Cells Not Reportable 07/05/17 Unknown Toxic Granulation Not Reportable 07/05/17 Unknown Toxic Vacuolation Not Reportable 07/05/17 Unknown Dohle Bodies Not Reportable 07/05/17 Unknown Pelger-Huet Anomaly Not Reportable 07/05/17 Unknown [place]s Not Reportable 07/05/17 Unknown Platelet Estimate Appears decreased 07/05/17 Unknown Clumped Platelets Not Reportable 07/05/17 Unknown Plt Clumps, EDTA Not Reportable 07/05/17 Unknown Large Platelets Not Reportable 07/05/17 Unknown Giant Platelets Not Reportable 07/05/17 Unknown Platelet Satelliting Not Reportable 07/05/17 Unknown Plt Morphology Comment Not Reportable 07/05/17 Unknown RBC Morphology Not Reportable 07/05/17 Unknown Dimorphic RBCs Not Reportable 07/05/17 Unknown Polychromasia Not Reportable 07/05/17 Unknown Hypochromasia Not Reportable 07/05/17 Unknown Poikilocytosis 1+ 07/05/17 Unknown Anisocytosis 1+ 07/05/17 Unknown Microcytosis Few 07/05/17 Unknown Macrocytosis Not Reportable 07/05/17 Unknown Spherocytes Not Reportable 07/05/17 Unknown Pappenheimer Bodies Not Reportable 07/05/17 Unknown Sickle Cells Not Reportable 07/05/17 Unknown Target Cells Not Reportable 07/05/17 Unknown Tear Drop Cells Not Reportable 07/05/17 Unknown Ovalocytes Not Reportable 07/05/17 Unknown Helmet Cells Not Reportable 07/05/17 Unknown [place] Bodies Not Reportable 07/05/17 Unknown [place] Rings Not Reportable 07/05/17 Unknown [place] Cells Not Reportable 07/05/17 Unknown Bite Cells Not Reportable 07/05/17 Unknown Crenated Cell Not Reportable 07/05/17 Unknown Elliptocytes Not Reportable 07/05/17 Unknown Acanthocytes (Spur) Not Reportable 07/05/17 Unknown Rouleaux Not Reportable 07/05/17 Unknown Hemoglobin C Crystals Not Reportable 07/05/17 Unknown Schistocytes Not Reportable 07/05/17 Unknown Malaria parasites Not Reportable 07/05/17 Unknown [place] Bodies Not Reportable 07/05/17 Unknown Hem Pathologist Commnt No 07/05/17 Unknown PT 12.9 Sec. (12.2-14.9) 07/06/17 08:30 INR 0.93 (0.87-1.13) 07/06/17 08:30 POC ABG pH 7.448 (7.35-7.45) 07/10/17 14:14 POC ABG pCO2 39.1 (35-45) 07/10/17 14:14 POC ABG pO2 138 (80-105) H 07/10/17 14:14 POC ABG HCO3 27.0 07/10/17 14:14 POC ABG Total CO2 28 07/10/17 14:14 POC ABG O2 Sat 99 07/10/17 14:14 POC ABG Base Excess 3 07/10/17 14:14 FiO2 28 % 07/10/17 14:14 Sodium 138 mmol/L (137-145) 07/10/17 10:02 Potassium 4.2 mmol/L (3.6-5.0) 07/10/17 10:02 Chloride 102.3 mmol/L (98-107) 07/10/17 10:02 Carbon Dioxide 27 mmol/L (22-30) 07/10/17 10:02 Anion Gap 13 mmol/L 07/10/17 10:02 BUN 35 mg/dL (9-20) H 07/10/17 10:02 Creatinine 2.6 mg/dL (0.8-1.5) H 07/10/17 10:02 Estimated GFR 29 ml/min 07/10/17 10:02 BUN/Creatinine Ratio 13 % 07/10/17 10:02 Glucose 196 mg/dL (75-100) H 07/10/17 10:02 POC Glucose 160 (70-105) H 07/10/17 05:41 Osmolality 357 Mosm/kg 07/02/17 15:35 Lactic Acid 2.30 mmol/L (0.7-2.0) H* 07/05/17 Unknown Calcium 7.9 mg/dL (8.4-10.2) L 07/10/17 10:02 Ionized Calcium 4.6 mg/dL (4.8-5.6) L 07/04/17 14:10 Phosphorus 3.80 mg/dL (2.5-4.5) 07/04/17 14:10 Magnesium 1.80 mg/dL (1.7-2.3) 07/04/17 14:10 Total Bilirubin 0.40 mg/dL (0.1-1.2) 07/02/17 Unknown AST 31 units/L (5-40) 07/02/17 Unknown ALT 23 units/L (7-56) 07/02/17 Unknown Alkaline Phosphatase 139 units/L (35-129) H 07/02/17 Unknown Lactate Dehydrogenase 880 units/L (91-180) H 07/06/17 08:30 Total Creatine Kinase 58 units/L (55-170) 07/05/17 12:40 CK-MB (CK-2) 1.8 ng/mL (0.0-4.0) 07/05/17 12:40 CK-MB (CK-2) Rel Index 3.1 (0-4) 07/05/17 12:40 Troponin T 0.277 ng/mL (0.00-0.029) H* 07/05/17 12:40 C-Reactive Protein 9.90 mg/dL (0.00-1.30) H 07/05/17 Unknown Total Protein 4.9 g/dL (6.3-8.2) L 07/06/17 08:30 Albumin 3.3 g/dL (3.9-5) L 07/02/17 Unknown Albumin/Globulin Ratio 1.2 % 07/02/17 Unknown Triglycerides 83 mg/dL (2-149) 07/04/17 14:10 Cholesterol 83 mg/dL (50-199) 07/04/17 14:10 LDL Cholesterol Direct 22 mg/dL (50-130) L 07/04/17 14:10 HDL Cholesterol 45 mg/dL (40-59) 07/04/17 14:10 Cholesterol/HDL Ratio 1.84 % 07/04/17 14:10 TSH 3.200 mlU/mL (0.270-4.200) 07/02/17 Unknown Urine Color Yellow (Yellow) 07/02/17 17:25 Urine Turbidity Clear (Clear) 07/02/17 17:25 Urine pH 5.0 (5.0-7.0) 07/02/17 17:25 Ur Specific [place] 1.018 (1.003-1.030) 07/02/17 17:25 Urine Protein 100 mg/dl mg/dL (Negative) 07/02/17 17:25 Urine Glucose (UA) >=500 mg/dL (Negative) 07/02/17 17:25 Urine Ketones Neg mg/dL (Negative) 07/02/17 17:25 Urine Blood Sm (Negative) 07/02/17 17:25 Urine Nitrite Neg (Negative) 07/02/17 17:25 Urine Bilirubin Neg (Negative) 07/02/17 17:25 Urine Urobilinogen < 2.0 mg/dL (<2.0) 07/02/17 17:25 Ur Leukocyte Esterase Neg (Negative) 07/02/17 17:25 Urine WBC (Auto) 1.0 /HPF (0.0-6.0) 07/02/17 17:25 Urine RBC (Auto) 2.0 /HPF (0.0-6.0) 07/02/17 17:25 U Epithel Cells (Auto) 1.0 /HPF (0-13.0) 07/02/17 17:25 Fluid Type Pleural 07/06/17 16:53 Fluid Color Yellow 07/06/17 16:53 Fluid Appearance Clear 07/06/17 16:53 Fluid WBC 9 /mm3 07/06/17 16:53 Fluid RBC 6 /mm3 07/06/17 16:53 Fluid Seg Neutrophils 51.2 % 07/06/17 16:53 Fluid Lymphocytes 43.9 % 07/06/17 16:53 Fluid Reactive Lymphs 0 % 07/06/17 16:53 Fluid Monocytes 4.9 % 07/06/17 16:53 Fluid Eosinophils 0 % 07/06/17 16:53 Fluid Basophils 0 % 07/06/17 16:53 Fluid Total Protein < 3.0 (15.0-45.0) L 07/06/17 Unknown Fluid LDH 132 07/06/17 Unknown Fluid Comment 07/06/17 16:53 Salicylates < 0.3 mg/dL (2.8-20.0) L 07/02/17 Unknown Urine Opiates Screen Presumptive negative 07/02/17 17:25 Urine Methadone Screen Presumptive negative 07/02/17 17:25 Acetaminophen < 15.0 ug/mL (10.0-30.0) 07/02/17 Unknown Ur Barbiturates Screen Presumptive negative 07/02/17 17:25 Ur Phencyclidine Scrn Presumptive negative 07/02/17 17:25 Ur Amphetamines Screen Presumptive negative 07/02/17 17:25 U Benzodiazepines Scrn Presumptive negative 07/02/17 17:25 Urine Cocaine Screen Presumptive negative 07/02/17 17:25 U Marijuana (THC) Screen Presumptive negative 07/02/17 17:25 Drugs of Abuse Note Disclamer 07/02/17 17:25 Plasma/Serum Alcohol < 0.01 gm% (0-0.07) 07/02/17 Unknown
[2017-07-11] MEDS: NOVOLOG SUB-Q SCH ×4 (01:01→18:38)
[2017-07-11 05:16] LABS: Calcium 7.8 mg/dL (8.4-10.2); Chloride 105.2 mmol/L (98-107); Potassium 4.1 mmol/L (3.6-5.0)
[2017-07-11] MEDS: FLAGYL PO SCH ×3 (07:02→22:27)
[2017-07-11] MEDS: DUONEB *Not for PRN Use IH SCH ×3 (08:04→23:26)
[2017-07-11] MEDS: LEVEMIR SUB-Q SCH (08:52)
[2017-07-11] MEDS: ROCALTROL PO SCH (09:03)
[2017-07-11] MEDS: ASPIRIN PO SCH (09:03)
[2017-07-11] MEDS: FERROUS SULFATE PO SCH ×2 (09:03→22:27)
[2017-07-11] MEDS: NORVASC PO SCH (09:03)
[2017-07-11] MEDS: FOLVITE PO SCH (09:04)
[2017-07-11] MEDS: HEPARIN SUB-Q SCH ×2 (09:04→22:27)
[2017-07-11] MEDS: COREG PO SCH ×2 (09:04→22:27)
[2017-07-11] MEDS: PEPCID PO SCH (09:04)
[2017-07-11] MEDS: THERAGRAN-M Tab PO SCH (09:04)
--- NOTE | 2017-07-11 10:09 | Progress Note ---
Assessment and Plan Assessment: 1) Shock after cardiac arrest (?cardiogenic ?hypovolemic ?septic): shock resolved. Still leukocytosis. Septic component etiology unclear ? colitis (CT abd negative). CRP=9 2) Seizures ? 3) DM-uncontrolled with DKA 4) ESRD on HD 5) Anemia / thrombocytopenia 6) Bloody Diarrhea versus melena ? colitis ?GI bleed. Hemo-occult + 7) Pleural effusion s/p thoracenthesis - transudate Plan: -follow-up procalcitonin -continue flagyl IV/ PO day 6 of 10 -contact isolation I am rounding tomorrow Thank you Dr Moore for your consultation, will follow up with you. Laura Crocker MD Infectious Diseases Specialist [facility] ([facility]) M [phone] O [phone] Subjective Date of service: 07/11/17 Principal diagnosis: Acute Hypoxemic Resp Failure; S/P Cardiac Arrest; Hyperosmolar Non-ketotic Interval history: Remains on the vent, on CPAP, opens eyes not tracking, +T feeds + small amount black loose stools on flexiseal. Microbiology: Blood cultures: 07/02 ngtd Urine cultures: Respiratory cultures: 07/02 Sandra Pleural fluid 07/06: ngtd Current Antimicrobials: metronidazole 07/06 Previous Antimicrobials: Zosyn 07/02 Vanco 07/02 Objective - Exam Narrative Exam: General appearance: sedated on the vent Eyes: anicteric sclerae, moist conjunctivae; no lid-lag; PERRLA HENT: Atraumatic; oropharynx +ETT +NGT Neck: Trachea midline; supple, no thyromegaly or lymphadenopathy Lungs: CTA, CV: rrr Abdomen: Soft, non-tender Extremities: peripheral edema Skin: Normal temperature, turgor and texture; no rash, ulcers or subcutaneous nodules Psych: unable to eval . Neuro: unable to eval Lines: right IJ HD, condom cath - Constitutional Vitals: Vital Signs Temp Pulse Resp BP Pulse Ox 98.3 F 90 12 134/61 100 07/11/17 01:00 07/11/17 09:04 07/11/17 08:13 07/11/17 09:04 07/11/17 08:13 Temperature -Last 24 Hours Temperature 98.3 F Temperature 98.1 F Temperature 98.7 F Temperature 98.3 F - Labs CBC & Chem 7: 07/10/17 10:07 07/11/17 04:08 Labs: Abnormal lab results 07/09/17 07/10/17 07/10/17 Range/Units 12:07 10:02 10:07 WBC 16.3 H (4.5-11.0) K/mm3 RBC 2.66 L (3.65-5.03) M/mm3 Hgb 7.9 L (11.8-15.2) gm/dl Hct 23.5 L (35.5-45.6) % RDW 16.1 H (13.2-15.2) % Lymph % (Auto) 4.8 L (13.4-35.0) % [place] % (Auto) 9.6 H (0.0-7.3) % Lymph # 0.8 L (1.2-5.4) K/mm3 [place] # 1.6 H (0.0-0.8) K/mm3 Seg Neutrophils % 84.0 H (40.0-70.0) % Seg Neutrophils # 13.7 H (1.8-7.7) K/mm3 POC ABG pO2 (80-105) BUN 35 H (9-20) mg/dL Creatinine 2.6 H (0.8-1.5) mg/dL Glucose 196 H (75-100) mg/dL POC Glucose 276 H (70-105) Calcium 7.9 L (8.4-10.2) mg/dL 07/10/17 07/10/17 07/10/17 Range/Units 11:21 14:14 16:36 WBC (4.5-11.0) K/mm3 RBC (3.65-5.03) M/mm3 Hgb (11.8-15.2) gm/dl Hct (35.5-45.6) % RDW (13.2-15.2) % Lymph % (Auto) (13.4-35.0) % [place] % (Auto) (0.0-7.3) % Lymph # (1.2-5.4) K/mm3 [place] # (0.0-0.8) K/mm3 Seg Neutrophils % (40.0-70.0) % Seg Neutrophils # (1.8-7.7) K/mm3 POC ABG pO2 138 H (80-105) BUN (9-20) mg/dL Creatinine (0.8-1.5) mg/dL Glucose (75-100) mg/dL POC Glucose 206 H 133 H (70-105) Calcium (8.4-10.2) mg/dL 07/11/17 07/11/17 Range/Units 04:08 08:19 WBC (4.5-11.0) K/mm3 RBC (3.65-5.03) M/mm3 Hgb (11.8-15.2) gm/dl Hct (35.5-45.6) % RDW (13.2-15.2) % Lymph % (Auto) (13.4-35.0) % [place] % (Auto) (0.0-7.3) % Lymph # (1.2-5.4) K/mm3 [place] # (0.0-0.8) K/mm3 Seg Neutrophils % (40.0-70.0) % Seg Neutrophils # (1.8-7.7) K/mm3 POC ABG pO2 (80-105) BUN 45 H (9-20) mg/dL Creatinine 3.1 H (0.8-1.5) mg/dL Glucose (75-100) mg/dL POC Glucose 155 H (70-105) Calcium 7.8 L (8.4-10.2) mg/dL
[2017-07-11] MEDS ORDERED: NACL 0.9% 1000 ML 1,000 ML ONE (11:20)
--- NOTE | 2017-07-11 11:45 | Progress Note ---
Assessment and Plan Assessment: S/p cardiopulmonary arrest - PEA in ED; intubated; currently in SR on tele with no arrhythmias noted on tele since ICU admission NSTEMI type II - flat; repeat EKG with no acute ischemic changes. AMS - ? anoxic brain injury; head CT with NAF DKA Seizure d/o HTN DM / Hyperosmolar non ketotic state Lactic acidosis / leukocytosis / ? sepsis Hyponatremia - improved Anemia Thrombocytopenia - improving Plan: Cont present cardiac regimen. Cont supportive management. Plan for ischemic evaluation once medically stabilized. The patient has been seen in conjunction with Dr. Artis who agrees with the assessment and plan of care. Subjective Date of service: 07/11/17 Principal diagnosis: Acute Hypoxemic Resp Failure; S/P Cardiac Arrest; Hyperosmolar Non-ketotic Interval history: pt remains intubated, eyes open, no purposeful responses noted, off pressors. Objective Last Vital Signs Temp 98.3 F 07/11/17 10:50 Pulse 84 07/11/17 11:30 Resp 10 L 07/11/17 11:30 BP 111/53 07/11/17 11:30 Pulse Ox 100 07/11/17 11:30 - Physical Examination General: Other (intubated, unresponsive) HEENT: Positive: PERRL Neck: Positive: neck supple Cardiac: Positive: Reg Rate and Rhythm, S1/S2 Lungs: Positive: clear to auscultation Neuro: Positive: Grossly Intact, Other (intubated, unresponsive) Abdomen: Positive: Active Bowel Sounds Skin: Positive: Clear. Negative: Rash, Wound Musculoskeletal: No Fluid Collection, No Pain, Normal Range of Motion Extremities: Absent: edema - Labs and Meds Comprehensive Metabolic Panel 07/11/17 Range/Units 04:08 Sodium 143 (137-145) mmol/L Potassium 4.1 (3.6-5.0) mmol/L Chloride 105.2 (98-107) mmol/L Carbon Dioxide 26 (22-30) mmol/L BUN 45 H (9-20) mg/dL Creatinine 3.1 H (0.8-1.5) mg/dL Glucose 87 (75-100) mg/dL Calcium 7.8 L (8.4-10.2) mg/dL - Imaging and Cardiology EKG: report reviewed, image reviewed Echo: report reviewed (06/27/2017 showed EF 50-55%, mild LVH, impaired relaxation , RA mildly dilated, mild MR, mild pulm HTN with RVSP 45mmHg, moderate pleural fluid) - Telemetry EKG Rhythm: Sinus Rhythm - EKG Sinus rhythms and dysrhythmias: sinus rhythm AV and intraventricular conduction: right bundle branch block - Allied health notes Allied health notes reviewed: nursing
--- NOTE | 2017-07-11 11:58 | Progress Note ---
Assessment and Plan Acute Hypoxemic Respiratory Failure on MVS Seizure Disorder s/p Cardiac Arrest ESRD on Dialysis Sepsis Syndrome Hyperosmolar non ketotic state Anemia Leucocytosis Acute Encephalopathy Thrombocytopenia - pleural fluid studies back and fluid was transudative - AMS still a rate limiting factor to safe extubation - EEG re-ordered (no reading on initial study could be located) - will place consult for tracheostomy at this point - continue and complete antibiotics per ID recs - continue prn hydralazine and resumed home amlodipine dose (10mg qd) and coreg - keep set rate at 12/min - continue daily PSV trials as tolerated - continue aspiration precautions / addressing VAP bundle daily - continue to wean FiO2 for sats > 94% - continue enteral nutrition as tolerated - continue bronchodilators and pulmonary toilet - continue and adjust AB's per ID recs - continue glycemic control with SSI and levemir (target BG <180mg/dl) - continue GI & VTE prophylaxis - Continue to monitor platelet count while on heparin - continue other care per attending / other consultants - flu and pneumovax addressed per protocol ...the hope is that as sepsis resolves mental status will improve but that has not borne out so far ....35' CCT without overlap Subjective Date of service: 07/11/17 Principal diagnosis: Acute Hypoxemic Resp Failure; S/P Cardiac Arrest; Hyperosmolar Non-ketotic Interval history: Patient is seen today for: Acute Hypoxemic Resp Failure; S/P Cardiac Arrest; Hyperosmolar Non-ketotic Seen and examined at bedside; 24hour events reviewed; nursing and respiratory care staff consulted; no adverse overnight events reported to me; remains on MVS ; attempted to reach daughter / decision maker on her number but got a voice mail; no new issues otherwise; hemodialysis ongoing at time of my evaluation Objective Vital Signs - 12hr 07/10/17 07/11/17 07/11/17 23:59 00:00 00:30 Temperature Pulse Rate 94 H 94 H Pulse Rate [ 93 H Anterior Bilateral Throughout] Pulse Rate [ 93 H From Monitor] Respiratory 18 15 Rate Respiratory 12 Rate [Anterior Bilateral Throughout] Blood Pressure 129/63 127/64 O2 Sat by Pulse 100 100 Oximetry 07/11/17 07/11/17 07/11/17 01:00 01:30 02:00 Temperature 98.3 F Pulse Rate 94 H 94 H 95 H Pulse Rate [ Anterior Bilateral Throughout] Pulse Rate [ From Monitor] Respiratory 15 17 19 Rate Respiratory Rate [Anterior Bilateral Throughout] Blood Pressure 130/64 135/71 134/69 O2 Sat by Pulse 99 99 99 Oximetry 07/11/17 07/11/17 07/11/17 02:30 03:00 03:30 Temperature Pulse Rate 95 H 96 H Pulse Rate [ Anterior Bilateral Throughout] Pulse Rate [ From Monitor] Respiratory 15 13 Rate Respiratory Rate [Anterior Bilateral Throughout] Blood Pressure 132/69 132/69 132/69 O2 Sat by Pulse 99 100 100 Oximetry 07/11/17 07/11/17 07/11/17 04:00 04:30 05:00 Temperature Pulse Rate 94 H 96 H 92 H Pulse Rate [ Anterior Bilateral Throughout] Pulse Rate [ 90 From Monitor] Respiratory 12 14 17 Rate Respiratory Rate [Anterior Bilateral Throughout] Blood Pressure 132/69 132/69 132/69 O2 Sat by Pulse 100 100 100 Oximetry 07/11/17 07/11/17 07/11/17 05:30 06:00 06:30 Temperature Pulse Rate 92 H 88 90 Pulse Rate [ Anterior Bilateral Throughout] Pulse Rate [ From Monitor] Respiratory 17 16 16 Rate Respiratory Rate [Anterior Bilateral Throughout] Blood Pressure O2 Sat by Pulse 100 100 100 Oximetry 07/11/17 07/11/17 07/11/17 07:00 07:30 08:00 Temperature Pulse Rate 91 H 88 91 H Pulse Rate [ Anterior Bilateral Throughout] Pulse Rate [ From Monitor] Respiratory 15 17 12 Rate Respiratory Rate [Anterior Bilateral Throughout] Blood Pressure 137/63 132/67 O2 Sat by Pulse 100 100 98 Oximetry 07/11/17 07/11/17 07/11/17 08:04 08:12 08:13 Temperature Pulse Rate 91 H Pulse Rate [ 92 H 87 Anterior Bilateral Throughout] Pulse Rate [ From Monitor] Respiratory 12 Rate Respiratory 13 12 Rate [Anterior Bilateral Throughout] Blood Pressure 132/67 O2 Sat by Pulse 100 Oximetry 07/11/17 07/11/17 07/11/17 08:30 09:00 09:03 Temperature 98.3 F Pulse Rate 93 H 94 H 91 H Pulse Rate [ Anterior Bilateral Throughout] Pulse Rate [ From Monitor] Respiratory 12 12 Rate Respiratory Rate [Anterior Bilateral Throughout] Blood Pressure 135/64 134/61 134/61 O2 Sat by Pulse 100 100 Oximetry 07/11/17 07/11/17 07/11/17 09:04 09:30 10:00 Temperature Pulse Rate 90 96 H 85 Pulse Rate [ Anterior Bilateral Throughout] Pulse Rate [ From Monitor] Respiratory 12 14 Rate Respiratory Rate [Anterior Bilateral Throughout] Blood Pressure 134/61 136/66 134/61 O2 Sat by Pulse 100 100 Oximetry 07/11/17 07/11/17 07/11/17 10:30 10:50 11:00 Temperature 98.3 F Pulse Rate 83 83 Pulse Rate [ Anterior Bilateral Throughout] Pulse Rate [ From Monitor] Respiratory 22 10 L 10 L Rate Respiratory Rate [Anterior Bilateral Throughout] Blood Pressure 105/50 105/50 111/56 O2 Sat by Pulse 100 100 Oximetry 07/11/17 07/11/17 07/11/17 11:15 11:22 11:30 Temperature Pulse Rate 83 83 84 Pulse Rate [ Anterior Bilateral Throughout] Pulse Rate [ From Monitor] Respiratory 13 10 L Rate Respiratory Rate [Anterior Bilateral Throughout] Blood Pressure 103/46 103/46 111/53 O2 Sat by Pulse 100 100 Oximetry Constitutional: no acute distress, other (encephalopathic) Eyes: non-icteric ENT: oropharynx moist, other (ETT at 25cm TIKI) Neck: supple, no lymphadenopathy, JVD, other (no thyromegally) Effort: mildly labored Ascultation: Bilateral: diminished breath sounds (bases), rales Percussion: Bilateral: not dull Cardiovascular: regular rate and rhythm, other (no rubs / murmurs) Gastrointestinal: normoactive bowel sounds, soft, non-tender, non-distended, other (no HSM) Integumentary: normal Extremities: no cyanosis, no edema, pulses normal, no ischemia or petechiae Neurologic: pupils equal and round, unable to assess, other (no spontaneous limb movements) Psychiatric: other (unable to assess) CBC and BMP: 07/12/17 04:37 07/12/17 04:37 ABG, PT/INR, D-dimer: ABG POC ABG pH 7.448 (7.35-7.45) 07/10/17 14:14 POC ABG pCO2 39.1 (35-45) 07/10/17 14:14 POC ABG pO2 138 (80-105) H 07/10/17 14:14 POC ABG HCO3 27.0 07/10/17 14:14 POC ABG Total CO2 28 07/10/17 14:14 POC ABG O2 Sat 99 07/10/17 14:14 PT/INR, D-dimer PT 12.9 Sec. (12.2-14.9) 07/06/17 08:30 INR 0.93 (0.87-1.13) 07/06/17 08:30 Abnormal lab findings: Abnormal Labs 07/02/17 07/02/17 07/02/17 15:03 15:12 17:49 WBC 13.5 H RBC 3.47 L Hgb 9.9 L Hct 33.1 L MCV 96 H MCHC 30 L RDW 15.4 H Plt Count 130 L Lymph % (Auto) [place] % (Auto) Lymph # [place] # Seg Neutrophils % Seg Neuts % (Manual) 95.0 H Lymphocytes % (Manual) 3.0 L Seg Neutrophils # Seg Neutrophils # Man 12.8 H Lymphocytes # (Manual) 0.4 L POC ABG pH POC ABG pCO2 POC ABG pO2 Sodium Potassium Chloride Carbon Dioxide BUN Creatinine Glucose POC Glucose > 500 H Lactic Acid 7.80 H* Calcium Ionized Calcium Alkaline Phosphatase Lactate Dehydrogenase CK-MB (CK-2) Troponin T C-Reactive Protein Total Protein Albumin LDL Cholesterol Direct Fluid Total Protein Salicylates 07/02/17 07/02/17 07/02/17 20:29 21:31 23:38 WBC RBC Hgb Hct MCV MCHC RDW Plt Count Lymph % (Auto) [place] % (Auto) Lymph # [place] # Seg Neutrophils % Seg Neuts % (Manual) Lymphocytes % (Manual) Seg Neutrophils # Seg Neutrophils # Man Lymphocytes # (Manual) POC ABG pH POC ABG pCO2 POC ABG pO2 Sodium 129 L 132 L Potassium Chloride 87.2 L 93.7 L Carbon Dioxide 18 L 15 L BUN 51 H 47 H Creatinine 4.3 H 4.1 H Glucose 950 H* 825 H* POC Glucose Lactic Acid 5.70 H* Calcium 7.1 L 6.8 L Ionized Calcium Alkaline Phosphatase Lactate Dehydrogenase CK-MB (CK-2) Troponin T C-Reactive Protein Total Protein Albumin LDL Cholesterol Direct Fluid Total Protein Salicylates 07/02/17 07/02/17 07/02/17 23:38 23:44 Unknown WBC RBC Hgb Hct MCV MCHC RDW Plt Count Lymph % (Auto) [place] % (Auto) Lymph # [place] # Seg Neutrophils % Seg Neuts % (Manual) Lymphocytes % (Manual) Seg Neutrophils # Seg Neutrophils # Man Lymphocytes # (Manual) POC ABG pH POC ABG pCO2 POC ABG pO2 Sodium 132 L 125 L D Potassium Chloride 94.6 L 85.6 L Carbon Dioxide 17 L 19 L D BUN 51 H 50 H Creatinine 4.1 H 4.4 H D Glucose 772 H* 1113 H* POC Glucose > 500 H Lactic Acid Calcium 6.7 L 7.2 L Ionized Calcium Alkaline Phosphatase 139 H Lactate Dehydrogenase CK-MB (CK-2) Troponin T C-Reactive Protein Total Protein 6.1 L Albumin 3.3 L LDL Cholesterol Direct Fluid Total Protein Salicylates 07/02/17 07/02/17 07/03/17 Unknown Unknown 01:00 WBC RBC Hgb Hct MCV MCHC RDW Plt Count Lymph % (Auto) [place] % (Auto) Lymph # [place] # Seg Neutrophils % Seg Neuts % (Manual) Lymphocytes % (Manual) Seg Neutrophils # Seg Neutrophils # Man Lymphocytes # (Manual) POC ABG pH POC ABG pCO2 POC ABG pO2 Sodium 134 L Potassium Chloride 96.4 L Carbon Dioxide 19 L BUN 50 H Creatinine 4.0 H Glucose 677 H* POC Glucose Lactic Acid 6.30 H* Calcium 6.6 L Ionized Calcium Alkaline Phosphatase Lactate Dehydrogenase CK-MB (CK-2) Troponin T C-Reactive Protein Total Protein Albumin LDL Cholesterol Direct Fluid Total Protein Salicylates < 0.3 L 07/03/17 07/03/17 07/03/17 01:04 02:15 02:15 WBC RBC Hgb Hct MCV MCHC RDW Plt Count Lymph % (Auto) [place] % (Auto) Lymph # [place] # Seg Neutrophils % Seg Neuts % (Manual) Lymphocytes % (Manual) Seg Neutrophils # Seg Neutrophils # Man Lymphocytes # (Manual) POC ABG pH POC ABG pCO2 POC ABG pO2 Sodium 134 L Potassium Chloride 97.6 L Carbon Dioxide 19 L BUN 50 H Creatinine 4.2 H Glucose 592 H* POC Glucose > 500 H Lactic Acid 4.30 H* Calcium 6.6 L Ionized Calcium Alkaline Phosphatase Lactate Dehydrogenase CK-MB (CK-2) Troponin T C-Reactive Protein Total Protein Albumin LDL Cholesterol Direct Fluid Total Protein Salicylates 07/03/17 07/03/17 07/03/17 02:21 03:25 04:10 WBC RBC Hgb Hct MCV MCHC RDW Plt Count Lymph % (Auto) [place] % (Auto) Lymph # [place] # Seg Neutrophils % Seg Neuts % (Manual) Lymphocytes % (Manual) Seg Neutrophils # Seg Neutrophils # Man Lymphocytes # (Manual) POC ABG pH POC ABG pCO2 POC ABG pO2 Sodium Potassium Chloride Carbon Dioxide 19 L BUN 50 H Creatinine 4.0 H Glucose 416 H POC Glucose 482 H > 500 H Lactic Acid Calcium 6.8 L Ionized Calcium Alkaline Phosphatase Lactate Dehydrogenase CK-MB (CK-2) Troponin T C-Reactive Protein Total Protein Albumin LDL Cholesterol Direct Fluid Total Protein Salicylates 07/03/17 07/03/17 07/03/17 04:30 04:36 05:33 WBC RBC Hgb Hct MCV MCHC RDW Plt Count Lymph % (Auto) [place] % (Auto) Lymph # [place] # Seg Neutrophils % Seg Neuts % (Manual) Lymphocytes % (Manual) Seg Neutrophils # Seg Neutrophils # Man Lymphocytes # (Manual) POC ABG pH 7.311 L POC ABG pCO2 33.5 L POC ABG pO2 73 L Sodium Potassium Chloride Carbon Dioxide BUN Creatinine Glucose POC Glucose 389 H 326 H Lactic Acid Calcium Ionized Calcium Alkaline Phosphatase Lactate Dehydrogenase CK-MB (CK-2) Troponin T C-Reactive Protein Total Protein Albumin LDL Cholesterol Direct Fluid Total Protein Salicylates 07/03/17 07/03/17 07/03/17 06:06 07:38 09:58 WBC RBC Hgb Hct MCV MCHC RDW Plt Count Lymph % (Auto) [place] % (Auto) Lymph # [place] # Seg Neutrophils % Seg Neuts % (Manual) Lymphocytes % (Manual) Seg Neutrophils # Seg Neutrophils # Man Lymphocytes # (Manual) POC ABG pH POC ABG pCO2 POC ABG pO2 Sodium Potassium Chloride Carbon Dioxide BUN Creatinine Glucose POC Glucose 247 H 118 H 52 L Lactic Acid Calcium Ionized Calcium Alkaline Phosphatase Lactate Dehydrogenase CK-MB (CK-2) Troponin T C-Reactive Protein Total Protein Albumin LDL Cholesterol Direct Fluid Total Protein Salicylates 07/03/17 07/03/17 07/03/17 11:00 13:16 15:02 WBC RBC Hgb Hct MCV MCHC RDW Plt Count Lymph % (Auto) [place] % (Auto) Lymph # [place] # Seg Neutrophils % Seg Neuts % (Manual) Lymphocytes % (Manual) Seg Neutrophils # Seg Neutrophils # Man Lymphocytes # (Manual) POC ABG pH POC ABG pCO2 POC ABG pO2 Sodium Potassium Chloride Carbon Dioxide BUN Creatinine Glucose POC Glucose 64 L 112 H 158 H Lactic Acid Calcium Ionized Calcium Alkaline Phosphatase Lactate Dehydrogenase CK-MB (CK-2) Troponin T C-Reactive Protein Total Protein Albumin LDL Cholesterol Direct Fluid Total Protein Salicylates 07/03/17 07/03/17 07/03/17 18:17 Unknown Unknown WBC RBC Hgb Hct MCV MCHC RDW Plt Count Lymph % (Auto) [place] % (Auto) Lymph # [place] # Seg Neutrophils % Seg Neuts % (Manual) Lymphocytes % (Manual) Seg Neutrophils # Seg Neutrophils # Man Lymphocytes # (Manual) POC ABG pH POC ABG pCO2 POC ABG pO2 Sodium Potassium Chloride Carbon Dioxide BUN Creatinine Glucose POC Glucose 131 H Lactic Acid 2.40 H* Calcium Ionized Calcium Alkaline Phosphatase Lactate Dehydrogenase CK-MB (CK-2) Troponin T C-Reactive Protein 1.90 H Total Protein Albumin LDL Cholesterol Direct Fluid Total Protein Salicylates 07/03/17 07/04/17 07/04/17 Unknown 00:13 02:04 WBC RBC Hgb Hct MCV MCHC RDW Plt Count Lymph % (Auto) [place] % (Auto) Lymph # [place] # Seg Neutrophils % Seg Neuts % (Manual) Lymphocytes % (Manual) Seg Neutrophils # Seg Neutrophils # Man Lymphocytes # (Manual) POC ABG pH POC ABG pCO2 POC ABG pO2 Sodium Potassium Chloride Carbon Dioxide BUN 52 H Creatinine 4.3 H Glucose POC Glucose 69 L 111 H Lactic Acid Calcium 7.2 L Ionized Calcium Alkaline Phosphatase Lactate Dehydrogenase CK-MB (CK-2) Troponin T C-Reactive Protein Total Protein Albumin LDL Cholesterol Direct Fluid Total Protein Salicylates 07/04/17 07/04/17 07/04/17 04:38 08:00 08:00 WBC 28.3 H RBC 3.55 L Hgb 10.3 L Hct 31.2 L MCV MCHC RDW 15.3 H Plt Count 101 L Lymph % (Auto) [place] % (Auto) Lymph # [place] # Seg Neutrophils % Seg Neuts % (Manual) Lymphocytes % (Manual) Seg Neutrophils # Seg Neutrophils # Man Lymphocytes # (Manual) POC ABG pH POC ABG pCO2 27.6 L POC ABG pO2 Sodium Potassium Chloride Carbon Dioxide 20 L BUN 62 H Creatinine 4.7 H Glucose POC Glucose Lactic Acid Calcium 7.0 L Ionized Calcium Alkaline Phosphatase Lactate Dehydrogenase CK-MB (CK-2) Troponin T C-Reactive Protein Total Protein Albumin LDL Cholesterol Direct Fluid Total Protein Salicylates 07/04/17 07/04/17 07/04/17 14:10 14:10 14:33 WBC RBC Hgb Hct MCV MCHC RDW Plt Count Lymph % (Auto) [place] % (Auto) Lymph # [place] # Seg Neutrophils % Seg Neuts % (Manual) Lymphocytes % (Manual) Seg Neutrophils # Seg Neutrophils # Man Lymphocytes # (Manual) POC ABG pH 7.474 H POC ABG pCO2 29.4 L POC ABG pO2 Sodium Potassium Chloride Carbon Dioxide BUN Creatinine Glucose POC Glucose Lactic Acid Calcium Ionized Calcium 4.6 L Alkaline Phosphatase Lactate Dehydrogenase CK-MB (CK-2) 4.3 H Troponin T 0.282 H* C-Reactive Protein Total Protein Albumin LDL Cholesterol Direct 22 L Fluid Total Protein Salicylates 07/04/17 07/04/17 07/04/17 17:26 20:40 23:34 WBC RBC Hgb Hct MCV MCHC RDW Plt Count Lymph % (Auto) [place] % (Auto) Lymph # [place] # Seg Neutrophils % Seg Neuts % (Manual) Lymphocytes % (Manual) Seg Neutrophils # Seg Neutrophils # Man Lymphocytes # (Manual) POC ABG pH POC ABG pCO2 POC ABG pO2 Sodium Potassium Chloride Carbon Dioxide BUN Creatinine Glucose POC Glucose 201 H 188 H Lactic Acid Calcium Ionized Calcium Alkaline Phosphatase Lactate Dehydrogenase CK-MB (CK-2) Troponin T 0.276 H* C-Reactive Protein Total Protein Albumin LDL Cholesterol Direct Fluid Total Protein Salicylates 07/05/17 07/05/17 07/05/17 05:42 07:50 11:52 WBC RBC Hgb Hct MCV MCHC RDW Plt Count Lymph % (Auto) [place] % (Auto) Lymph # [place] # Seg Neutrophils % Seg Neuts % (Manual) Lymphocytes % (Manual) Seg Neutrophils # Seg Neutrophils # Man Lymphocytes # (Manual) POC ABG pH POC ABG pCO2 POC ABG pO2 117 H Sodium Potassium Chloride Carbon Dioxide BUN Creatinine Glucose POC Glucose 126 H 110 H Lactic Acid Calcium Ionized Calcium Alkaline Phosphatase Lactate Dehydrogenase CK-MB (CK-2) Troponin T C-Reactive Protein Total Protein Albumin LDL Cholesterol Direct Fluid Total Protein Salicylates 07/05/17 07/05/17 07/05/17 12:40 17:51 18:12 WBC RBC Hgb Hct MCV MCHC RDW Plt Count Lymph % (Auto) [place] % (Auto) Lymph # [place] # Seg Neutrophils % Seg Neuts % (Manual) Lymphocytes % (Manual) Seg Neutrophils # Seg Neutrophils # Man Lymphocytes # (Manual) POC ABG pH POC ABG pCO2 POC ABG pO2 Sodium Potassium Chloride Carbon Dioxide BUN Creatinine Glucose POC Glucose 57 L 69 L Lactic Acid Calcium Ionized Calcium Alkaline Phosphatase Lactate Dehydrogenase CK-MB (CK-2) Troponin T 0.277 H* C-Reactive Protein Total Protein Albumin LDL Cholesterol Direct Fluid Total Protein Salicylates 07/05/17 07/05/17 07/05/17 Unknown Unknown Unknown WBC 22.2 H RBC 3.24 L Hgb 9.7 L Hct 28.6 L MCV MCHC RDW Plt Count 89 L Lymph % (Auto) [place] % (Auto) Lymph # [place] # Seg Neutrophils % Seg Neuts % (Manual) 89.0 H Lymphocytes % (Manual) 7.0 L Seg Neutrophils # Seg Neutrophils # Man 19.8 H Lymphocytes # (Manual) POC ABG pH POC ABG pCO2 POC ABG pO2 Sodium Potassium 3.5 L Chloride Carbon Dioxide BUN 37 H Creatinine 3.1 H Glucose 120 H POC Glucose Lactic Acid 2.30 H* Calcium 7.7 L Ionized Calcium Alkaline Phosphatase Lactate Dehydrogenase CK-MB (CK-2) Troponin T C-Reactive Protein Total Protein Albumin LDL Cholesterol Direct Fluid Total Protein Salicylates 07/05/17 07/06/17 07/06/17 Unknown 03:25 03:25 WBC 17.7 H RBC 3.14 L Hgb 9.3 L Hct 27.8 L MCV MCHC RDW 15.7 H Plt Count 82 L Lymph % (Auto) 2.5 L [place] % (Auto) Lymph # 0.4 L [place] # 1.1 H Seg Neutrophils % 90.0 H Seg Neuts % (Manual) Lymphocytes % (Manual) Seg Neutrophils # 15.9 H Seg Neutrophils # Man Lymphocytes # (Manual) POC ABG pH POC ABG pCO2 POC ABG pO2 Sodium Potassium 3.3 L Chloride Carbon Dioxide BUN 44 H Creatinine 3.6 H Glucose 132 H POC Glucose Lactic Acid Calcium 7.4 L Ionized Calcium Alkaline Phosphatase Lactate Dehydrogenase CK-MB (CK-2) Troponin T C-Reactive Protein 9.90 H Total Protein Albumin LDL Cholesterol Direct Fluid Total Protein Salicylates 07/06/17 07/06/17 07/06/17 04:19 05:24 08:30 WBC RBC Hgb Hct MCV MCHC RDW Plt Count Lymph % (Auto) [place] % (Auto) Lymph # [place] # Seg Neutrophils % Seg Neuts % (Manual) Lymphocytes % (Manual) Seg Neutrophils # Seg Neutrophils # Man Lymphocytes # (Manual) POC ABG pH POC ABG pCO2 34.3 L POC ABG pO2 Sodium Potassium Chloride Carbon Dioxide BUN Creatinine Glucose POC Glucose 174 H Lactic Acid Calcium Ionized Calcium Alkaline Phosphatase Lactate Dehydrogenase 880 H CK-MB (CK-2) Troponin T C-Reactive Protein Total Protein 4.9 L Albumin LDL Cholesterol Direct Fluid Total Protein Salicylates 07/06/17 07/06/17 07/06/17 11:13 17:14 23:38 WBC RBC Hgb Hct MCV MCHC RDW Plt Count Lymph % (Auto) [place] % (Auto) Lymph # [place] # Seg Neutrophils % Seg Neuts % (Manual) Lymphocytes % (Manual) Seg Neutrophils # Seg Neutrophils # Man Lymphocytes # (Manual) POC ABG pH POC ABG pCO2 POC ABG pO2 Sodium Potassium Chloride Carbon Dioxide BUN Creatinine Glucose POC Glucose 216 H 211 H 122 H Lactic Acid Calcium Ionized Calcium Alkaline Phosphatase Lactate Dehydrogenase CK-MB (CK-2) Troponin T C-Reactive Protein Total Protein Albumin LDL Cholesterol Direct Fluid Total Protein Salicylates 07/06/17 07/07/17 07/07/17 Unknown 04:38 05:00 WBC 16.1 H RBC 3.00 L Hgb 8.9 L Hct 26.6 L MCV MCHC RDW 15.6 H Plt Count 106 L Lymph % (Auto) 4.1 L [place] % (Auto) 8.0 H Lymph # 0.7 L [place] # 1.3 H Seg Neutrophils % 86.6 H Seg Neuts % (Manual) Lymphocytes % (Manual) Seg Neutrophils # 13.9 H Seg Neutrophils # Man Lymphocytes # (Manual) POC ABG pH 7.455 H POC ABG pCO2 POC ABG pO2 134 H Sodium Potassium Chloride Carbon Dioxide BUN Creatinine Glucose POC Glucose Lactic Acid Calcium Ionized Calcium Alkaline Phosphatase Lactate Dehydrogenase CK-MB (CK-2) Troponin T C-Reactive Protein Total Protein Albumin LDL Cholesterol Direct Fluid Total Protein < 3.0 L Salicylates 07/07/17 07/07/17 07/07/17 05:00 05:17 11:33 WBC RBC Hgb Hct MCV MCHC RDW Plt Count Lymph % (Auto) [place] % (Auto) Lymph # [place] # Seg Neutrophils % Seg Neuts % (Manual) Lymphocytes % (Manual) Seg Neutrophils # Seg Neutrophils # Man Lymphocytes # (Manual) POC ABG pH POC ABG pCO2 POC ABG pO2 Sodium Potassium Chloride Carbon Dioxide BUN 30 H Creatinine 2.8 H Glucose 188 H POC Glucose 189 H 275 H Lactic Acid Calcium 7.9 L Ionized Calcium Alkaline Phosphatase Lactate Dehydrogenase CK-MB (CK-2) Troponin T C-Reactive Protein Total Protein Albumin LDL Cholesterol Direct Fluid Total Protein Salicylates 07/07/17 07/07/17 07/07/17 16:04 17:08 23:45 WBC RBC Hgb Hct MCV MCHC RDW Plt Count Lymph % (Auto) [place] % (Auto) Lymph # [place] # Seg Neutrophils % Seg Neuts % (Manual) Lymphocytes % (Manual) Seg Neutrophils # Seg Neutrophils # Man Lymphocytes # (Manual) POC ABG pH POC ABG pCO2 POC ABG pO2 126 H Sodium Potassium Chloride Carbon Dioxide BUN Creatinine Glucose POC Glucose 241 H 118 H Lactic Acid Calcium Ionized Calcium Alkaline Phosphatase Lactate Dehydrogenase CK-MB (CK-2) Troponin T C-Reactive Protein Total Protein Albumin LDL Cholesterol Direct Fluid Total Protein Salicylates 07/08/17 07/08/17 07/08/17 05:30 05:54 06:12 WBC 17.0 H RBC 3.27 L Hgb 9.5 L Hct 29.1 L MCV MCHC RDW 15.6 H Plt Count 133 L Lymph % (Auto) 4.6 L [place] % (Auto) 9.2 H Lymph # 0.8 L [place] # 1.6 H Seg Neutrophils % 83.9 H Seg Neuts % (Manual) Lymphocytes % (Manual) Seg Neutrophils # 14.3 H Seg Neutrophils # Man Lymphocytes # (Manual) POC ABG pH 7.477 H POC ABG pCO2 POC ABG pO2 118 H Sodium Potassium Chloride Carbon Dioxide BUN Creatinine Glucose POC Glucose 199 H Lactic Acid Calcium Ionized Calcium Alkaline Phosphatase Lactate Dehydrogenase CK-MB (CK-2) Troponin T C-Reactive Protein Total Protein Albumin LDL Cholesterol Direct Fluid Total Protein Salicylates 07/08/17 07/08/17 07/08/17 06:12 11:37 17:21 WBC RBC Hgb Hct MCV MCHC RDW Plt Count Lymph % (Auto) [place] % (Auto) Lymph # [place] # Seg Neutrophils % Seg Neuts % (Manual) Lymphocytes % (Manual) Seg Neutrophils # Seg Neutrophils # Man Lymphocytes # (Manual) POC ABG pH POC ABG pCO2 POC ABG pO2 Sodium Potassium Chloride Carbon Dioxide BUN 44 H Creatinine 3.4 H Glucose 190 H POC Glucose 236 H 186 H Lactic Acid Calcium 7.8 L Ionized Calcium Alkaline Phosphatase Lactate Dehydrogenase CK-MB (CK-2) Troponin T C-Reactive Protein Total Protein Albumin LDL Cholesterol Direct Fluid Total Protein Salicylates 07/08/17 07/09/17 07/09/17 23:09 04:27 05:02 WBC 17.8 H RBC 2.88 L Hgb 8.5 L Hct 25.6 L MCV MCHC RDW 15.5 H Plt Count Lymph % (Auto) 4.6 L [place] % (Auto) 10.2 H Lymph # 0.8 L [place] # 1.8 H Seg Neutrophils % 83.4 H Seg Neuts % (Manual) Lymphocytes % (Manual) Seg Neutrophils # 14.8 H Seg Neutrophils # Man Lymphocytes # (Manual) POC ABG pH POC ABG pCO2 POC ABG pO2 132 H Sodium Potassium Chloride Carbon Dioxide BUN Creatinine Glucose POC Glucose 203 H Lactic Acid Calcium Ionized Calcium Alkaline Phosphatase Lactate Dehydrogenase CK-MB (CK-2) Troponin T C-Reactive Protein Total Protein Albumin LDL Cholesterol Direct Fluid Total Protein Salicylates 07/09/17 07/09/17 07/09/17 05:02 05:33 12:07 WBC RBC Hgb Hct MCV MCHC RDW Plt Count Lymph % (Auto) [place] % (Auto) Lymph # [place] # Seg Neutrophils % Seg Neuts % (Manual) Lymphocytes % (Manual) Seg Neutrophils # Seg Neutrophils # Man Lymphocytes # (Manual) POC ABG pH POC ABG pCO2 POC ABG pO2 Sodium Potassium Chloride Carbon Dioxide BUN 61 H Creatinine 4.0 H Glucose 183 H POC Glucose 177 H 276 H Lactic Acid Calcium 7.6 L Ionized Calcium Alkaline Phosphatase Lactate Dehydrogenase CK-MB (CK-2) Troponin T C-Reactive Protein Total Protein Albumin LDL Cholesterol Direct Fluid Total Protein Salicylates 07/09/17 07/10/17 07/10/17 18:54 03:50 03:50 WBC 16.8 H RBC 2.77 L Hgb 8.1 L Hct 24.9 L MCV MCHC RDW 15.7 H Plt Count Lymph % (Auto) 4.3 L [place] % (Auto) 10.8 H Lymph # 0.7 L [place] # 1.8 H Seg Neutrophils % 83.5 H Seg Neuts % (Manual) Lymphocytes % (Manual) Seg Neutrophils # 14.1 H Seg Neutrophils # Man Lymphocytes # (Manual) POC ABG pH POC ABG pCO2 POC ABG pO2 Sodium Potassium Chloride Carbon Dioxide BUN 31 H Creatinine 2.5 H Glucose 129 H POC Glucose 178 H Lactic Acid Calcium 8.1 L Ionized Calcium Alkaline Phosphatase Lactate Dehydrogenase CK-MB (CK-2) Troponin T C-Reactive Protein Total Protein Albumin LDL Cholesterol Direct Fluid Total Protein Salicylates 07/10/17 07/10/17 07/10/17 05:41 10:02 10:07 WBC 16.3 H RBC 2.66 L Hgb 7.9 L Hct 23.5 L MCV MCHC RDW 16.1 H Plt Count Lymph % (Auto) 4.8 L [place] % (Auto) 9.6 H Lymph # 0.8 L [place] # 1.6 H Seg Neutrophils % 84.0 H Seg Neuts % (Manual) Lymphocytes % (Manual) Seg Neutrophils # 13.7 H Seg Neutrophils # Man Lymphocytes # (Manual) POC ABG pH POC ABG pCO2 POC ABG pO2 Sodium Potassium Chloride Carbon Dioxide BUN 35 H Creatinine 2.6 H Glucose 196 H POC Glucose 160 H Lactic Acid Calcium 7.9 L Ionized Calcium Alkaline Phosphatase Lactate Dehydrogenase CK-MB (CK-2) Troponin T C-Reactive Protein Total Protein Albumin LDL Cholesterol Direct Fluid Total Protein Salicylates 07/10/17 07/10/17 07/10/17 11:21 14:14 16:36 WBC RBC Hgb Hct MCV MCHC RDW Plt Count Lymph % (Auto) [place] % (Auto) Lymph # [place] # Seg Neutrophils % Seg Neuts % (Manual) Lymphocytes % (Manual) Seg Neutrophils # Seg Neutrophils # Man Lymphocytes # (Manual) POC ABG pH POC ABG pCO2 POC ABG pO2 138 H Sodium Potassium Chloride Carbon Dioxide BUN Creatinine Glucose POC Glucose 206 H 133 H Lactic Acid Calcium Ionized Calcium Alkaline Phosphatase Lactate Dehydrogenase CK-MB (CK-2) Troponin T C-Reactive Protein Total Protein Albumin LDL Cholesterol Direct Fluid Total Protein Salicylates 07/11/17 07/11/17 04:08 08:19 WBC RBC Hgb Hct MCV MCHC RDW Plt Count Lymph % (Auto) [place] % (Auto) Lymph # [place] # Seg Neutrophils % Seg Neuts % (Manual) Lymphocytes % (Manual) Seg Neutrophils # Seg Neutrophils # Man Lymphocytes # (Manual) POC ABG pH POC ABG pCO2 POC ABG pO2 Sodium Potassium Chloride Carbon Dioxide BUN 45 H Creatinine 3.1 H Glucose POC Glucose 155 H Lactic Acid Calcium 7.8 L Ionized Calcium Alkaline Phosphatase Lactate Dehydrogenase CK-MB (CK-2) Troponin T C-Reactive Protein Total Protein Albumin LDL Cholesterol Direct Fluid Total Protein Salicylates Allied health notes reviewed: nursing
--- NOTE | 2017-07-11 12:46 | Progress Note ---
Assessment and Plan Impression: * End stage renal disease on HD * Cardiac arrest * Acute hypoxic respiratory failure on mechanical ventilation * Seizure disorder, new onset * Sepsis * DM s/p DKA Plan: * Hemodialysis MWF schedule * UF as tolerated. Ca bath adjusted * Vent management per Pulm/CCM * Empiric abx * Neuro work up in progress * Adjust medications for renal function Subjective Date of service: 07/11/17 Principal diagnosis: Acute Hypoxemic Resp Failure; S/P Cardiac Arrest; Hyperosmolar Non-ketotic Interval history: resting in bed today Objective - Exam Narrative Exam: General appearance: intubated EENT: ATNC, other (ETT in place) Respiratory: Present: Other (coarse breath sounds) Cardiology: regular, S1S2 Gastrointestinal: no tenderness, no distended Integumentary: no rash Neurologic: other (does not respond to tactile/verbal stimuli) Musculoskeletal: prevertebral tenderness, other (no edema) - Vital Signs Vital signs: Vital Signs - 12hr 07/11/17 07/11/17 07/11/17 01:00 01:30 02:00 Temperature 98.3 F Pulse Rate 94 H 94 H 95 H Pulse Rate [ Anterior Bilateral Throughout] Pulse Rate [ From Monitor] Respiratory 15 17 19 Rate Respiratory Rate [Anterior Bilateral Throughout] Blood Pressure 130/64 135/71 134/69 O2 Sat by Pulse 99 99 99 Oximetry 07/11/17 07/11/17 07/11/17 02:30 03:00 03:30 Temperature Pulse Rate 95 H 96 H Pulse Rate [ Anterior Bilateral Throughout] Pulse Rate [ From Monitor] Respiratory 15 13 Rate Respiratory Rate [Anterior Bilateral Throughout] Blood Pressure 132/69 132/69 132/69 O2 Sat by Pulse 99 100 100 Oximetry 07/11/17 07/11/17 07/11/17 04:00 04:30 05:00 Temperature Pulse Rate 94 H 96 H 92 H Pulse Rate [ Anterior Bilateral Throughout] Pulse Rate [ 90 From Monitor] Respiratory 12 14 17 Rate Respiratory Rate [Anterior Bilateral Throughout] Blood Pressure 132/69 132/69 132/69 O2 Sat by Pulse 100 100 100 Oximetry 07/11/17 07/11/17 07/11/17 05:30 06:00 06:30 Temperature Pulse Rate 92 H 88 90 Pulse Rate [ Anterior Bilateral Throughout] Pulse Rate [ From Monitor] Respiratory 17 16 16 Rate Respiratory Rate [Anterior Bilateral Throughout] Blood Pressure O2 Sat by Pulse 100 100 100 Oximetry 07/11/17 07/11/17 07/11/17 07:00 07:30 08:00 Temperature Pulse Rate 91 H 88 91 H Pulse Rate [ Anterior Bilateral Throughout] Pulse Rate [ From Monitor] Respiratory 15 17 12 Rate Respiratory Rate [Anterior Bilateral Throughout] Blood Pressure 137/63 132/67 O2 Sat by Pulse 100 100 98 Oximetry 07/11/17 07/11/17 07/11/17 08:04 08:12 08:13 Temperature Pulse Rate 91 H Pulse Rate [ 92 H 87 Anterior Bilateral Throughout] Pulse Rate [ From Monitor] Respiratory 12 Rate Respiratory 13 12 Rate [Anterior Bilateral Throughout] Blood Pressure 132/67 O2 Sat by Pulse 100 Oximetry 07/11/17 07/11/17 07/11/17 08:30 09:00 09:03 Temperature 98.3 F Pulse Rate 93 H 94 H 91 H Pulse Rate [ Anterior Bilateral Throughout] Pulse Rate [ From Monitor] Respiratory 12 12 Rate Respiratory Rate [Anterior Bilateral Throughout] Blood Pressure 135/64 134/61 134/61 O2 Sat by Pulse 100 100 Oximetry 07/11/17 07/11/17 07/11/17 09:04 09:30 10:00 Temperature Pulse Rate 90 96 H 85 Pulse Rate [ Anterior Bilateral Throughout] Pulse Rate [ From Monitor] Respiratory 12 14 Rate Respiratory Rate [Anterior Bilateral Throughout] Blood Pressure 134/61 136/66 134/61 O2 Sat by Pulse 100 100 Oximetry 07/11/17 07/11/17 07/11/17 10:30 10:50 11:00 Temperature 98.3 F Pulse Rate 83 83 Pulse Rate [ Anterior Bilateral Throughout] Pulse Rate [ From Monitor] Respiratory 22 10 L 10 L Rate Respiratory Rate [Anterior Bilateral Throughout] Blood Pressure 105/50 105/50 111/56 O2 Sat by Pulse 100 100 Oximetry 07/11/17 07/11/17 07/11/17 11:15 11:22 11:30 Temperature Pulse Rate 83 83 84 Pulse Rate [ Anterior Bilateral Throughout] Pulse Rate [ From Monitor] Respiratory 13 10 L Rate Respiratory Rate [Anterior Bilateral Throughout] Blood Pressure 103/46 103/46 111/53 O2 Sat by Pulse 100 100 Oximetry 07/11/17 07/11/17 07/11/17 11:45 12:00 12:15 Temperature Pulse Rate 83 83 87 Pulse Rate [ Anterior Bilateral Throughout] Pulse Rate [ From Monitor] Respiratory 13 Rate Respiratory Rate [Anterior Bilateral Throughout] Blood Pressure 107/49 107/50 117/52 O2 Sat by Pulse 100 Oximetry 07/11/17 12:30 Temperature Pulse Rate 87 Pulse Rate [ Anterior Bilateral Throughout] Pulse Rate [ From Monitor] Respiratory 14 Rate Respiratory Rate [Anterior Bilateral Throughout] Blood Pressure 117/52 O2 Sat by Pulse 100 Oximetry - Lab 07/10/17 10:07 07/11/17 04:08 Most recent lab results Calcium 7.8 mg/dL (8.4-10.2) L 07/11/17 04:08 Phosphorus 3.80 mg/dL (2.5-4.5) 07/04/17 14:10 Magnesium 1.80 mg/dL (1.7-2.3) 07/04/17 14:10
[2017-07-11] MEDS: HEPARIN IV PRN (14:10)
--- NOTE | 2017-07-11 15:32 | Progress Note ---
Assessment and Plan Assessment and plan: Anoxic brain injury Status post cardiac arrest Seizure disorder Sepsis with hypotension History of diarrhea DKA with diabetic coma ESRD on HD - Patient is intubated and on mechanical ventilation, off sedation - Finished antibiotics - ESRD on HD - Patient was treated according to DKA protocol now resolved and on long-acting insulin DVT prophylaxis - Heparin Disposition - Patient need trach - Continue ICU care History Interval history: Patient was seen and evaluated this morning, patient in non communicative. Patient is off sedation. Hospitalist Physical - Physical exam Narrative exam: Patient is intubated and on mechanical ventilation. The patient appeared well nourished and normally developed. Vital signs as documented. Head exam is unremarkable. No scleral icterus . Neck is without jugular venous distension, thyromegaly, or carotid bruits. Lungs are clear to auscultation. Cardiac exam reveals regular rate and Rhythm. First and second heart sounds normal. No murmurs, rubs or gallops. Abdominal exam reveals normal bowel sounds, no masses, no organomegaly and no aortic enlargement. Extremities are nonedematous and both femoral and pedal pulses are normal. FIELD COUNSEL: Patient is comatose. He is off sedation. - Constitutional Vitals: Temp Pulse Resp BP Pulse Ox 98.3 F 91 H 12 126/59 100 07/11/17 14:00 07/11/17 15:26 07/11/17 15:26 07/11/17 15:24 07/11/17 15:24 General appearance: Present: mild distress, other (intubated, unresponsive) Results - Labs CBC & Chem 7: 07/10/17 10:07 07/11/17 04:08 Labs: Laboratory Last Values WBC 16.3 K/mm3 (4.5-11.0) H 07/10/17 10:07 RBC 2.66 M/mm3 (3.65-5.03) L 07/10/17 10:07 Hgb 7.9 gm/dl (11.8-15.2) L 07/10/17 10:07 Hct 23.5 % (35.5-45.6) L 07/10/17 10:07 MCV 88 fl (84-94) 07/10/17 10:07 MCH 30 pg (28-32) 07/10/17 10:07 MCHC 33 % (32-34) 07/10/17 10:07 RDW 16.1 % (13.2-15.2) H 07/10/17 10:07 Plt Count 164 K/mm3 (140-440) 07/10/17 10:07 Lymph % (Auto) 4.8 % (13.4-35.0) L 07/10/17 10:07 [place] % (Auto) 9.6 % (0.0-7.3) H 07/10/17 10:07 Eos % (Auto) 1.3 % (0.0-4.3) 07/10/17 10:07 Baso % (Auto) 0.3 % (0.0-1.8) 07/10/17 10:07 Lymph # 0.8 K/mm3 (1.2-5.4) L 07/10/17 10:07 [place] # 1.6 K/mm3 (0.0-0.8) H 07/10/17 10:07 Eos # 0.2 K/mm3 (0.0-0.4) 07/10/17 10:07 Baso # 0.0 K/mm3 (0.0-0.1) 07/10/17 10:07 Add Manual Diff Complete 07/05/17 Unknown Total Counted 100 07/05/17 Unknown Seg Neutrophils % 84.0 % (40.0-70.0) H 07/10/17 10:07 Seg Neuts % (Manual) 89.0 % (40.0-70.0) H 07/05/17 Unknown Band Neutrophils % 1.0 % 07/05/17 Unknown Lymphocytes % (Manual) 7.0 % (13.4-35.0) L 07/05/17 Unknown Reactive Lymphs % (Man) 0 % 07/05/17 Unknown Monocytes % (Manual) 3.0 % (0.0-7.3) 07/05/17 Unknown Eosinophils % (Manual) 0 % (0.0-4.3) 07/05/17 Unknown Basophils % (Manual) 0 % (0.0-1.8) 07/05/17 Unknown Metamyelocytes % 0 % 07/05/17 Unknown Myelocytes % 0 % 07/05/17 Unknown Promyelocytes % 0 % 07/05/17 Unknown Blast Cells % 0 % 07/05/17 Unknown Nucleated RBC % Not Reportable 07/05/17 Unknown Seg Neutrophils # 13.7 K/mm3 (1.8-7.7) H 07/10/17 10:07 Seg Neutrophils # Man 19.8 K/mm3 (1.8-7.7) H 07/05/17 Unknown Band Neutrophils # 0.2 K/mm3 07/05/17 Unknown Lymphocytes # (Manual) 1.6 K/mm3 (1.2-5.4) 07/05/17 Unknown Abs React Lymphs (Man) 0.0 K/mm3 07/05/17 Unknown Monocytes # (Manual) 0.7 K/mm3 (0.0-0.8) 07/05/17 Unknown Eosinophils # (Manual) 0.0 K/mm3 (0.0-0.4) 07/05/17 Unknown Basophils # (Manual) 0.0 K/mm3 (0.0-0.1) 07/05/17 Unknown Metamyelocytes # 0.0 K/mm3 07/05/17 Unknown Myelocytes # 0.0 K/mm3 07/05/17 Unknown Promyelocytes # 0.0 K/mm3 07/05/17 Unknown Blast Cells # 0.0 K/mm3 07/05/17 Unknown WBC Morphology Not Reportable 07/05/17 Unknown Hypersegmented Neuts Not Reportable 07/05/17 Unknown Hyposegmented Neuts Not Reportable 07/05/17 Unknown Hypogranular Neuts Not Reportable 07/05/17 Unknown Smudge Cells Not Reportable 07/05/17 Unknown Toxic Granulation Not Reportable 07/05/17 Unknown Toxic Vacuolation Not Reportable 07/05/17 Unknown Dohle Bodies Not Reportable 07/05/17 Unknown [place]-Huet Anomaly Not Reportable 07/05/17 Unknown [place] Not Reportable 07/05/17 Unknown Platelet Estimate Appears decreased 07/05/17 Unknown Clumped Platelets Not Reportable 07/05/17 Unknown Plt Clumps, EDTA Not Reportable 07/05/17 Unknown Large Platelets Not Reportable 07/05/17 Unknown Giant Platelets Not Reportable 07/05/17 Unknown Platelet Satelliting Not Reportable 07/05/17 Unknown Plt Morphology Comment Not Reportable 07/05/17 Unknown RBC Morphology Not Reportable 07/05/17 Unknown Dimorphic RBCs Not Reportable 07/05/17 Unknown Polychromasia Not Reportable 07/05/17 Unknown Hypochromasia Not Reportable 07/05/17 Unknown Poikilocytosis 1+ 07/05/17 Unknown Anisocytosis 1+ 07/05/17 Unknown Microcytosis Few 07/05/17 Unknown Macrocytosis Not Reportable 07/05/17 Unknown Spherocytes Not Reportable 07/05/17 Unknown Pappenheimer Bodies Not Reportable 07/05/17 Unknown Sickle Cells Not Reportable 07/05/17 Unknown Target Cells Not Reportable 07/05/17 Unknown Tear Drop Cells Not Reportable 07/05/17 Unknown Ovalocytes Not Reportable 07/05/17 Unknown Helmet Cells Not Reportable 07/05/17 Unknown [place] Bodies Not Reportable 07/05/17 Unknown [place] Rings Not Reportable 07/05/17 Unknown [place] Cells Not Reportable 07/05/17 Unknown Bite Cells Not Reportable 07/05/17 Unknown Crenated Cell Not Reportable 07/05/17 Unknown Elliptocytes Not Reportable 07/05/17 Unknown Acanthocytes (Spur) Not Reportable 07/05/17 Unknown Rouleaux Not Reportable 07/05/17 Unknown Hemoglobin C Crystals Not Reportable 07/05/17 Unknown Schistocytes Not Reportable 07/05/17 Unknown Malaria parasites Not Reportable 07/05/17 Unknown [place] Bodies Not Reportable 07/05/17 Unknown Hem Pathologist Commnt No 07/05/17 Unknown PT 12.9 Sec. (12.2-14.9) 07/06/17 08:30 INR 0.93 (0.87-1.13) 07/06/17 08:30 POC ABG pH 7.448 (7.35-7.45) 07/10/17 14:14 POC ABG pCO2 39.1 (35-45) 07/10/17 14:14 POC ABG pO2 138 (80-105) H 07/10/17 14:14 POC ABG HCO3 27.0 07/10/17 14:14 POC ABG Total CO2 28 07/10/17 14:14 POC ABG O2 Sat 99 07/10/17 14:14 POC ABG Base Excess 3 07/10/17 14:14 FiO2 28 % 07/10/17 14:14 Sodium 143 mmol/L (137-145) 07/11/17 04:08 Potassium 4.1 mmol/L (3.6-5.0) 07/11/17 04:08 Chloride 105.2 mmol/L (98-107) 07/11/17 04:08 Carbon Dioxide 26 mmol/L (22-30) 07/11/17 04:08 Anion Gap 16 mmol/L 07/11/17 04:08 BUN 45 mg/dL (9-20) H 07/11/17 04:08 Creatinine 3.1 mg/dL (0.8-1.5) H 07/11/17 04:08 Estimated GFR 24 ml/min 07/11/17 04:08 BUN/Creatinine Ratio 15 % 07/11/17 04:08 Glucose 87 mg/dL (75-100) 07/11/17 04:08 POC Glucose 199 (70-105) H 07/11/17 13:58 Osmolality 357 Mosm/kg 07/02/17 15:35 Lactic Acid 2.30 mmol/L (0.7-2.0) H* 07/05/17 Unknown Calcium 7.8 mg/dL (8.4-10.2) L 07/11/17 04:08 Ionized Calcium 4.6 mg/dL (4.8-5.6) L 07/04/17 14:10 Phosphorus 3.80 mg/dL (2.5-4.5) 07/04/17 14:10 Magnesium 1.80 mg/dL (1.7-2.3) 07/04/17 14:10 Total Bilirubin 0.40 mg/dL (0.1-1.2) 07/02/17 Unknown AST 31 units/L (5-40) 07/02/17 Unknown ALT 23 units/L (7-56) 07/02/17 Unknown Alkaline Phosphatase 139 units/L (35-129) H 07/02/17 Unknown Lactate Dehydrogenase 880 units/L (91-180) H 07/06/17 08:30 Total Creatine Kinase 58 units/L (55-170) 07/05/17 12:40 CK-MB (CK-2) 1.8 ng/mL (0.0-4.0) 07/05/17 12:40 CK-MB (CK-2) Rel Index 3.1 (0-4) 07/05/17 12:40 Troponin T 0.277 ng/mL (0.00-0.029) H* 07/05/17 12:40 C-Reactive Protein 9.90 mg/dL (0.00-1.30) H 07/05/17 Unknown Total Protein 4.9 g/dL (6.3-8.2) L 07/06/17 08:30 Albumin 3.3 g/dL (3.9-5) L 07/02/17 Unknown Albumin/Globulin Ratio 1.2 % 07/02/17 Unknown Triglycerides 83 mg/dL (2-149) 07/04/17 14:10 Cholesterol 83 mg/dL (50-199) 07/04/17 14:10 LDL Cholesterol Direct 22 mg/dL (50-130) L 07/04/17 14:10 HDL Cholesterol 45 mg/dL (40-59) 07/04/17 14:10 Cholesterol/HDL Ratio 1.84 % 07/04/17 14:10 TSH 3.200 mlU/mL (0.270-4.200) 07/02/17 Unknown Urine Color Yellow (Yellow) 07/02/17 17:25 Urine Turbidity Clear (Clear) 07/02/17 17:25 Urine pH 5.0 (5.0-7.0) 07/02/17 17:25 Ur Specific [place] 1.018 (1.003-1.030) 07/02/17 17:25 Urine Protein 100 mg/dl mg/dL (Negative) 07/02/17 17:25 Urine Glucose (UA) >=500 mg/dL (Negative) 07/02/17 17:25 Urine Ketones Neg mg/dL (Negative) 07/02/17 17:25 Urine Blood Sm (Negative) 07/02/17 17:25 Urine Nitrite Neg (Negative) 07/02/17 17:25 Urine Bilirubin Neg (Negative) 07/02/17 17:25 Urine Urobilinogen < 2.0 mg/dL (<2.0) 07/02/17 17:25 Ur Leukocyte Esterase Neg (Negative) 07/02/17 17:25 Urine WBC (Auto) 1.0 /HPF (0.0-6.0) 07/02/17 17:25 Urine RBC (Auto) 2.0 /HPF (0.0-6.0) 07/02/17 17:25 U Epithel Cells (Auto) 1.0 /HPF (0-13.0) 07/02/17 17:25 Fluid Type Pleural 07/06/17 16:53 Fluid Color Yellow 07/06/17 16:53 Fluid Appearance Clear 07/06/17 16:53 Fluid WBC 9 /mm3 07/06/17 16:53 Fluid RBC 6 /mm3 07/06/17 16:53 Fluid Seg Neutrophils 51.2 % 07/06/17 16:53 Fluid Lymphocytes 43.9 % 07/06/17 16:53 Fluid Reactive Lymphs 0 % 07/06/17 16:53 Fluid Monocytes 4.9 % 07/06/17 16:53 Fluid Eosinophils 0 % 07/06/17 16:53 Fluid Basophils 0 % 07/06/17 16:53 Fluid Total Protein < 3.0 (15.0-45.0) L 07/06/17 Unknown Fluid LDH 132 07/06/17 Unknown Fluid Comment 07/06/17 16:53 Salicylates < 0.3 mg/dL (2.8-20.0) L 07/02/17 Unknown Urine Opiates Screen Presumptive negative 07/02/17 17:25 Urine Methadone Screen Presumptive negative 07/02/17 17:25 Acetaminophen < 15.0 ug/mL (10.0-30.0) 07/02/17 Unknown Ur Barbiturates Screen Presumptive negative 07/02/17 17:25 Ur Phencyclidine Scrn Presumptive negative 07/02/17 17:25 Ur Amphetamines Screen Presumptive negative 07/02/17 17:25 U Benzodiazepines Scrn Presumptive negative 07/02/17 17:25 Urine Cocaine Screen Presumptive negative 07/02/17 17:25 U Marijuana (THC) Screen Presumptive negative 07/02/17 17:25 Drugs of Abuse Note Disclamer 07/02/17 17:25 Plasma/Serum Alcohol < 0.01 gm% (0-0.07) 07/02/17 Unknown
[2017-07-12 05:12] LABS: Basophils % (Auto) 0.3 % (0.0-1.8); Eosinophils % (Auto) 1.5 % (0.0-4.3); Hemoglobin 7.6 gm/dl (11.8-15.2); Mean Corpuscular HGB Conc 32 % (32-34); Mean Corpuscular Hemoglobin 29 pg (28-32); Mean Corpuscular Volume 92 fl (84-94); Platelet Count 204 K/mm3 (140-440); Red Blood Count 2.62 M/mm3 (3.65-5.03); White Blood Count 12.9 K/mm3 (4.5-11.0)
[2017-07-12 06:29] LABS: Chloride 101.7 mmol/L (98-107)
[2017-07-12] MEDS: FLAGYL PO SCH ×3 (06:46→22:29)
[2017-07-12] MEDS: NOVOLOG SUB-Q SCH ×4 (06:46→18:43)
--- NOTE | 2017-07-12 07:08 | Progress Note ---
Assessment and Plan Assessment and plan: Anoxic brain injury Status post cardiac arrest Seizure disorder Sepsis with hypotension History of diarrhea DKA with diabetic coma ESRD on HD - Patient is intubated and on mechanical ventilation, off sedation - Finished antibiotics - ESRD on HD - Patient was treated according to DKA protocol now resolved and on long-acting insulin DVT prophylaxis - Heparin Disposition - Patient need trach - Continue ICU care The high probability of a clinically significant, sudden or life threatening deterioration of the [CV, neurology, renal] system(s) required my full and direct attention, intervention and personal management. The aggregate critical care time was [32] minutes. This time is in addition to time spent performing reported procedures but includes the following: [x] Data Review and interpretation [x] Patient assessment and monitoring of vital signs [x] Documentation [x] Medication orders and management History Interval history: Patient was seen and evaluated this morning, patient in non communicative. Patient is off sedation. Hospitalist Physical - Physical exam Narrative exam: Patient is intubated and on mechanical ventilation. The patient appeared well nourished and normally developed. Vital signs as documented. Head exam is unremarkable. No scleral icterus . Neck is without jugular venous distension, thyromegaly, or carotid bruits. Lungs are clear to auscultation. Cardiac exam reveals regular rate and Rhythm. First and second heart sounds normal. No murmurs, rubs or gallops. Abdominal exam reveals normal bowel sounds, no masses, no organomegaly and no aortic enlargement. Extremities are nonedematous and both femoral and pedal pulses are normal. BAKER BREAD: Patient is comatose. He is off sedation. - Constitutional Vitals: Temp Pulse Resp BP Pulse Ox 98.0 F 89 12 130/61 100 07/12/17 04:00 07/12/17 03:45 07/12/17 02:15 07/12/17 03:45 07/12/17 03:45 General appearance: Present: mild distress, other (intubated, unresponsive) Results - Labs CBC & Chem 7: 07/12/17 04:37 07/12/17 04:37 Labs: Laboratory Last Values WBC 12.9 K/mm3 (4.5-11.0) H 07/12/17 04:37 RBC 2.62 M/mm3 (3.65-5.03) L 07/12/17 04:37 Hgb 7.6 gm/dl (11.8-15.2) L 07/12/17 04:37 Hct 24.0 % (35.5-45.6) L 07/12/17 04:37 MCV 92 fl (84-94) 07/12/17 04:37 MCH 29 pg (28-32) 07/12/17 04:37 MCHC 32 % (32-34) 07/12/17 04:37 RDW 16.0 % (13.2-15.2) H 07/12/17 04:37 Plt Count 204 K/mm3 (140-440) 07/12/17 04:37 Lymph % (Auto) 4.8 % (13.4-35.0) L 07/12/17 04:37 [place] % (Auto) 8.6 % (0.0-7.3) H 07/12/17 04:37 Eos % (Auto) 1.5 % (0.0-4.3) 07/12/17 04:37 Baso % (Auto) 0.3 % (0.0-1.8) 07/12/17 04:37 Lymph # 0.6 K/mm3 (1.2-5.4) L 07/12/17 04:37 [place] # 1.1 K/mm3 (0.0-0.8) H 07/12/17 04:37 Eos # 0.2 K/mm3 (0.0-0.4) 07/12/17 04:37 Baso # 0.0 K/mm3 (0.0-0.1) 07/12/17 04:37 Add Manual Diff Complete 07/05/17 Unknown Total Counted 100 07/05/17 Unknown Seg Neutrophils % 84.8 % (40.0-70.0) H 07/12/17 04:37 Seg Neuts % (Manual) 89.0 % (40.0-70.0) H 07/05/17 Unknown Band Neutrophils % 1.0 % 07/05/17 Unknown Lymphocytes % (Manual) 7.0 % (13.4-35.0) L 07/05/17 Unknown Reactive Lymphs % (Man) 0 % 07/05/17 Unknown Monocytes % (Manual) 3.0 % (0.0-7.3) 07/05/17 Unknown Eosinophils % (Manual) 0 % (0.0-4.3) 07/05/17 Unknown Basophils % (Manual) 0 % (0.0-1.8) 07/05/17 Unknown Metamyelocytes % 0 % 07/05/17 Unknown Myelocytes % 0 % 07/05/17 Unknown Promyelocytes % 0 % 07/05/17 Unknown Blast Cells % 0 % 07/05/17 Unknown Nucleated RBC % Not Reportable 07/05/17 Unknown Seg Neutrophils # 10.9 K/mm3 (1.8-7.7) H 07/12/17 04:37 Seg Neutrophils # Man 19.8 K/mm3 (1.8-7.7) H 07/05/17 Unknown Band Neutrophils # 0.2 K/mm3 07/05/17 Unknown Lymphocytes # (Manual) 1.6 K/mm3 (1.2-5.4) 07/05/17 Unknown Abs React Lymphs (Man) 0.0 K/mm3 07/05/17 Unknown Monocytes # (Manual) 0.7 K/mm3 (0.0-0.8) 07/05/17 Unknown Eosinophils # (Manual) 0.0 K/mm3 (0.0-0.4) 07/05/17 Unknown Basophils # (Manual) 0.0 K/mm3 (0.0-0.1) 07/05/17 Unknown Metamyelocytes # 0.0 K/mm3 07/05/17 Unknown Myelocytes # 0.0 K/mm3 07/05/17 Unknown Promyelocytes # 0.0 K/mm3 07/05/17 Unknown Blast Cells # 0.0 K/mm3 07/05/17 Unknown WBC Morphology Not Reportable 07/05/17 Unknown Hypersegmented Neuts Not Reportable 07/05/17 Unknown Hyposegmented Neuts Not Reportable 07/05/17 Unknown Hypogranular Neuts Not Reportable 07/05/17 Unknown Smudge Cells Not Reportable 07/05/17 Unknown Toxic Granulation Not Reportable 07/05/17 Unknown Toxic Vacuolation Not Reportable 07/05/17 Unknown Dohle Bodies Not Reportable 07/05/17 Unknown Pelger-Huet Anomaly Not Reportable 07/05/17 Unknown [place]s Not Reportable 07/05/17 Unknown Platelet Estimate Appears decreased 07/05/17 Unknown Clumped Platelets Not Reportable 07/05/17 Unknown Plt Clumps, EDTA Not Reportable 07/05/17 Unknown Large Platelets Not Reportable 07/05/17 Unknown Giant Platelets Not Reportable 07/05/17 Unknown Platelet Satelliting Not Reportable 07/05/17 Unknown Plt Morphology Comment Not Reportable 07/05/17 Unknown RBC Morphology Not Reportable 07/05/17 Unknown Dimorphic RBCs Not Reportable 07/05/17 Unknown Polychromasia Not Reportable 07/05/17 Unknown Hypochromasia Not Reportable 07/05/17 Unknown Poikilocytosis 1+ 07/05/17 Unknown Anisocytosis 1+ 07/05/17 Unknown Microcytosis Few 07/05/17 Unknown Macrocytosis Not Reportable 07/05/17 Unknown Spherocytes Not Reportable 07/05/17 Unknown Pappenheimer Bodies Not Reportable 07/05/17 Unknown Sickle Cells Not Reportable 07/05/17 Unknown Target Cells Not Reportable 07/05/17 Unknown Tear Drop Cells Not Reportable 07/05/17 Unknown Ovalocytes Not Reportable 07/05/17 Unknown Helmet Cells Not Reportable 07/05/17 Unknown [place] Bodies Not Reportable 07/05/17 Unknown [place] Rings Not Reportable 07/05/17 Unknown [place] Cells Not Reportable 07/05/17 Unknown Bite Cells Not Reportable 07/05/17 Unknown Crenated Cell Not Reportable 07/05/17 Unknown Elliptocytes Not Reportable 07/05/17 Unknown Acanthocytes (Spur) Not Reportable 07/05/17 Unknown Rouleaux Not Reportable 07/05/17 Unknown Hemoglobin C Crystals Not Reportable 07/05/17 Unknown Schistocytes Not Reportable 07/05/17 Unknown Malaria parasites Not Reportable 07/05/17 Unknown [place] Bodies Not Reportable 07/05/17 Unknown Hem Pathologist Commnt No 07/05/17 Unknown PT 12.9 Sec. (12.2-14.9) 07/06/17 08:30 INR 0.93 (0.87-1.13) 07/06/17 08:30 POC ABG pH 7.448 (7.35-7.45) 07/10/17 14:14 POC ABG pCO2 39.1 (35-45) 07/10/17 14:14 POC ABG pO2 138 (80-105) H 07/10/17 14:14 POC ABG HCO3 27.0 07/10/17 14:14 POC ABG Total CO2 28 07/10/17 14:14 POC ABG O2 Sat 99 07/10/17 14:14 POC ABG Base Excess 3 07/10/17 14:14 FiO2 28 % 07/10/17 14:14 Sodium 140 mmol/L (137-145) 07/12/17 04:37 Potassium 4.0 mmol/L (3.6-5.0) 07/12/17 04:37 Chloride 101.7 mmol/L (98-107) 07/12/17 04:37 Carbon Dioxide 30 mmol/L (22-30) 07/12/17 04:37 Anion Gap 12 mmol/L 07/12/17 04:37 BUN 29 mg/dL (9-20) H 07/12/17 04:37 Creatinine 2.1 mg/dL (0.8-1.5) H 07/12/17 04:37 Estimated GFR 37 ml/min 07/12/17 04:37 BUN/Creatinine Ratio 14 % 07/12/17 04:37 Glucose 137 mg/dL (75-100) H 07/12/17 04:37 POC Glucose 149 (70-105) H 07/12/17 05:39 Osmolality 357 Mosm/kg 07/02/17 15:35 Lactic Acid 2.30 mmol/L (0.7-2.0) H* 07/05/17 Unknown Calcium 8.0 mg/dL (8.4-10.2) L 07/12/17 04:37 Ionized Calcium 4.6 mg/dL (4.8-5.6) L 07/04/17 14:10 Phosphorus 3.80 mg/dL (2.5-4.5) 07/04/17 14:10 Magnesium 1.80 mg/dL (1.7-2.3) 07/04/17 14:10 Total Bilirubin 0.40 mg/dL (0.1-1.2) 07/02/17 Unknown AST 31 units/L (5-40) 07/02/17 Unknown ALT 23 units/L (7-56) 07/02/17 Unknown Alkaline Phosphatase 139 units/L (35-129) H 07/02/17 Unknown Lactate Dehydrogenase 880 units/L (91-180) H 07/06/17 08:30 Total Creatine Kinase 58 units/L (55-170) 07/05/17 12:40 CK-MB (CK-2) 1.8 ng/mL (0.0-4.0) 07/05/17 12:40 CK-MB (CK-2) Rel Index 3.1 (0-4) 07/05/17 12:40 Troponin T 0.277 ng/mL (0.00-0.029) H* 07/05/17 12:40 C-Reactive Protein 9.90 mg/dL (0.00-1.30) H 07/05/17 Unknown Total Protein 4.9 g/dL (6.3-8.2) L 07/06/17 08:30 Albumin 3.3 g/dL (3.9-5) L 07/02/17 Unknown Albumin/Globulin Ratio 1.2 % 07/02/17 Unknown Triglycerides 83 mg/dL (2-149) 07/04/17 14:10 Cholesterol 83 mg/dL (50-199) 07/04/17 14:10 LDL Cholesterol Direct 22 mg/dL (50-130) L 07/04/17 14:10 HDL Cholesterol 45 mg/dL (40-59) 07/04/17 14:10 Cholesterol/HDL Ratio 1.84 % 07/04/17 14:10 TSH 3.200 mlU/mL (0.270-4.200) 07/02/17 Unknown Urine Color Yellow (Yellow) 07/02/17 17:25 Urine Turbidity Clear (Clear) 07/02/17 17:25 Urine pH 5.0 (5.0-7.0) 07/02/17 17:25 Ur Specific [place] 1.018 (1.003-1.030) 07/02/17 17:25 Urine Protein 100 mg/dl mg/dL (Negative) 07/02/17 17:25 Urine Glucose (UA) >=500 mg/dL (Negative) 07/02/17 17:25 Urine Ketones Neg mg/dL (Negative) 07/02/17 17:25 Urine Blood Sm (Negative) 07/02/17 17:25 Urine Nitrite Neg (Negative) 07/02/17 17:25 Urine Bilirubin Neg (Negative) 07/02/17 17:25 Urine Urobilinogen < 2.0 mg/dL (<2.0) 07/02/17 17:25 Ur Leukocyte Esterase Neg (Negative) 07/02/17 17:25 Urine WBC (Auto) 1.0 /HPF (0.0-6.0) 07/02/17 17:25 Urine RBC (Auto) 2.0 /HPF (0.0-6.0) 07/02/17 17:25 U Epithel Cells (Auto) 1.0 /HPF (0-13.0) 07/02/17 17:25 Fluid Type Pleural 07/06/17 16:53 Fluid Color Yellow 07/06/17 16:53 Fluid Appearance Clear 07/06/17 16:53 Fluid WBC 9 /mm3 07/06/17 16:53 Fluid RBC 6 /mm3 07/06/17 16:53 Fluid Seg Neutrophils 51.2 % 07/06/17 16:53 Fluid Lymphocytes 43.9 % 07/06/17 16:53 Fluid Reactive Lymphs 0 % 07/06/17 16:53 Fluid Monocytes 4.9 % 07/06/17 16:53 Fluid Eosinophils 0 % 07/06/17 16:53 Fluid Basophils 0 % 07/06/17 16:53 Fluid Total Protein < 3.0 (15.0-45.0) L 07/06/17 Unknown Fluid LDH 132 07/06/17 Unknown Fluid Comment 07/06/17 16:53 Salicylates < 0.3 mg/dL (2.8-20.0) L 07/02/17 Unknown Urine Opiates Screen Presumptive negative 07/02/17 17:25 Urine Methadone Screen Presumptive negative 07/02/17 17:25 Acetaminophen < 15.0 ug/mL (10.0-30.0) 07/02/17 Unknown Ur Barbiturates Screen Presumptive negative 07/02/17 17:25 Ur Phencyclidine Scrn Presumptive negative 07/02/17 17:25 Ur Amphetamines Screen Presumptive negative 07/02/17 17:25 U Benzodiazepines Scrn Presumptive negative 07/02/17 17:25 Urine Cocaine Screen Presumptive negative 07/02/17 17:25 U Marijuana (THC) Screen Presumptive negative 07/02/17 17:25 Drugs of Abuse Note Disclamer 07/02/17 17:25 Plasma/Serum Alcohol < 0.01 gm% (0-0.07) 07/02/17 Unknown
[2017-07-12] MEDS: DUONEB *Not for PRN Use IH SCH ×3 (08:27→23:30)
[2017-07-12] MEDS: ASPIRIN PO SCH (09:22)
[2017-07-12] MEDS: ROCALTROL PO SCH (09:22)
[2017-07-12] MEDS: THERAGRAN-M Tab PO SCH (09:22)
[2017-07-12] MEDS: FERROUS SULFATE PO SCH ×2 (09:22→22:29)
[2017-07-12] MEDS: NORVASC PO SCH (09:22)
[2017-07-12] MEDS: PEPCID PO SCH (09:22)
[2017-07-12] MEDS: COREG PO SCH ×2 (09:23→22:29)
[2017-07-12] MEDS: LEVEMIR SUB-Q SCH (09:23)
[2017-07-12] MEDS: FOLVITE PO SCH (09:23)
[2017-07-12] MEDS: HEPARIN SUB-Q SCH ×2 (09:23→22:29)
--- NOTE | 2017-07-12 09:30 | Progress Note ---
Assessment and Plan Cont present cardiac regimen. Cont supportive management. Plan for ischemic evaluation once medically stabilized. no new card rec at this time h/h low ?transfuse--defer to hosp/granulator tender Subjective Date of service: 07/12/17 Principal diagnosis: Acute Hypoxemic Resp Failure; S/P Cardiac Arrest; Hyperosmolar Non-ketotic Interval history: S/p cardiopulmonary arrest - PEA in ED; intubated; currently in SR on tele with no arrhythmias noted on tele since ICU admission NSTEMI type II - flat; repeat EKG with no acute ischemic changes. AMS - ? anoxic brain injury; head CT with NAF DKA Seizure d/o HTN DM / Hyperosmolar non ketotic state Lactic acidosis / leukocytosis / ? sepsis Hyponatremia - improved Anemia Thrombocytopenia - improving no sig interval change from the cardiac stanpoint Objective Vital Signs Temp Pulse Pulse Pulse Pulse Resp Resp 07/12/17 09:23 91 H 07/12/17 09:22 90 07/12/17 08:41 88 13 07/12/17 08:30 88 11 L 07/12/17 08:27 88 12 07/12/17 08:22 92 H 14 07/12/17 08:15 92 H 12 07/12/17 08:00 98.1 F 92 H 11 L 07/12/17 07:45 91 H 12 07/12/17 07:30 90 12 07/12/17 07:15 90 12 07/12/17 07:00 95 H 11 L 07/12/17 06:45 94 H 11 L 07/12/17 06:30 07/12/17 06:16 99 H 14 07/12/17 06:00 88 13 07/12/17 05:45 84 12 07/12/17 05:30 89 12 07/12/17 05:15 89 12 07/12/17 05:00 89 12 07/12/17 04:45 92 H 12 07/12/17 04:30 93 H 13 07/12/17 04:15 93 H 12 07/12/17 04:00 98.0 F 95 H 13 07/12/17 03:45 90 12 07/12/17 03:30 83 12 07/12/17 03:15 84 12 07/12/17 03:00 88 13 07/12/17 02:45 83 12 07/12/17 02:30 88 12 07/12/17 02:15 89 12 07/12/17 02:00 89 12 07/12/17 01:45 88 12 07/12/17 01:30 89 12 07/12/17 01:15 88 12 07/12/17 01:00 80 12 07/12/17 00:45 81 12 07/12/17 00:30 82 12 07/12/17 00:15 81 12 07/12/17 00:00 97.8 F 80 92 H 12 07/11/17 23:45 88 12 07/11/17 23:41 89 89 12 07/11/17 23:36 88 12 07/11/17 23:30 89 13 07/11/17 23:26 87 12 07/11/17 23:24 87 07/11/17 23:15 91 H 13 07/11/17 23:00 89 13 07/11/17 22:45 90 12 07/11/17 22:30 87 12 07/11/17 22:27 93 H 07/11/17 22:15 86 12 07/11/17 22:00 91 H 12 07/11/17 21:45 84 12 07/11/17 21:30 92 H 11 L 07/11/17 21:15 91 H 12 07/11/17 21:00 83 12 07/11/17 20:45 84 12 07/11/17 20:30 85 12 07/11/17 20:15 91 H 11 L 07/11/17 20:00 98.0 F 92 H 80 12 07/11/17 19:45 95 H 14 07/11/17 19:40 94 H 07/11/17 19:30 90 13 07/11/17 19:15 90 11 L 07/11/17 19:00 91 H 12 07/11/17 18:45 89 10 L 07/11/17 18:30 90 13 07/11/17 18:15 88 10 L 07/11/17 18:00 87 11 L 07/11/17 17:45 88 9 L 07/11/17 17:30 87 11 L 07/11/17 17:15 88 10 L 07/11/17 17:00 97.7 F 90 10 L 07/11/17 16:45 91 H 12 07/11/17 16:30 93 H 8 L 07/11/17 16:15 94 H 10 L 07/11/17 16:00 95 H 9 L 07/11/17 15:45 96 H 11 L 07/11/17 15:35 83 12 07/11/17 15:30 84 11 L 07/11/17 15:26 91 H 12 07/11/17 15:24 91 H 12 07/11/17 15:15 87 12 07/11/17 15:00 90 10 L 07/11/17 14:45 90 12 07/11/17 14:30 86 10 L 07/11/17 14:15 99 H 10 L 07/11/17 14:00 98.3 F 89 11 L 07/11/17 13:45 87 9 L 07/11/17 13:30 85 9 L 07/11/17 13:15 86 9 L 07/11/17 13:00 98.2 F 85 11 L 07/11/17 12:45 84 07/11/17 12:30 87 14 07/11/17 12:15 87 07/11/17 12:00 83 13 07/11/17 11:45 83 07/11/17 11:30 84 10 L 07/11/17 11:22 83 13 07/11/17 11:15 83 07/11/17 11:00 83 10 L 07/11/17 10:50 98.3 F 10 L 07/11/17 10:30 83 22 07/11/17 10:00 85 14 07/11/17 09:30 96 H 12 Resp BP Pulse Ox Pulse Ox Pulse Ox 07/12/17 09:23 136/64 07/12/17 09:22 136/64 07/12/17 08:41 07/12/17 08:30 138/64 100 07/12/17 08:27 07/12/17 08:22 139/70 100 07/12/17 08:15 139/70 100 07/12/17 08:00 135/69 100 07/12/17 07:45 134/67 100 07/12/17 07:30 131/63 100 07/12/17 07:15 129/66 100 07/12/17 07:00 148/68 100 07/12/17 06:45 144/71 100 07/12/17 06:30 128/83 100 07/12/17 06:16 128/83 100 11/23/17 06:00 138/68 100 07/12/17 05:45 139/65 100 07/12/17 05:30 138/65 100 07/12/17 05:15 134/66 100 07/12/17 05:00 128/63 100 07/12/17 04:45 131/64 100 07/12/17 04:30 133/66 100 07/12/17 04:15 133/65 100 07/12/17 04:00 134/64 100 07/12/17 03:45 134/64 100 07/12/17 03:30 130/61 100 07/12/17 03:15 129/64 100 07/12/17 03:00 131/65 100 07/12/17 02:45 131/63 100 07/12/17 02:30 133/67 100 07/12/17 02:15 131/66 100 07/12/17 02:00 128/62 100 07/12/17 01:45 130/65 100 07/12/17 01:30 127/60 100 07/12/17 01:15 128/62 100 07/12/17 01:00 125/63 100 07/12/17 00:45 122/59 100 07/12/17 00:30 122/58 100 07/12/17 00:15 119/60 100 07/12/17 00:00 113/58 100 07/11/17 23:45 124/63 100 07/11/17 23:41 12 07/11/17 23:36 129/66 100 07/11/17 23:30 129/66 100 07/11/17 23:26 07/11/17 23:24 131/67 100 07/11/17 23:15 131/67 100 07/11/17 23:00 137/68 100 07/11/17 22:45 131/67 100 07/11/17 22:30 134/63 100 07/11/17 22:27 07/11/17 22:15 129/59 100 07/11/17 22:00 130/64 100 07/11/17 21:45 122/62 100 07/11/17 21:30 135/69 100 07/11/17 21:15 136/66 100 07/11/17 21:00 128/64 100 07/11/17 20:45 124/59 100 07/11/17 20:30 127/62 100 17 20:15 132/68 100 07/11/17 20:00 129/63 100 07/11/17 19:45 126/64 100 07/11/17 19:40 133/65 100 07/11/17 19:30 133/65 100 07/11/17 19:15 128/65 100 07/11/17 19:00 134/68 100 07/11/17 18:45 129/65 100 07/11/17 18:30 138/68 100 07/11/17 18:15 134/61 100 07/11/17 18:00 130/62 100 07/11/17 17:45 126/61 100 07/11/17 17:30 129/60 100 07/11/17 17:15 127/61 100 07/11/17 17:00 129/64 100 07/11/17 16:45 130/62 100 07/11/17 16:30 131/64 100 07/11/17 16:15 130/63 100 07/11/17 16:00 133/65 100 07/11/17 15:45 142/72 100 07/11/17 15:35 07/11/17 15:30 124/58 100 07/11/17 15:26 07/11/17 15:24 126/59 100 07/11/17 15:15 126/59 100 07/11/17 15:00 133/63 100 07/11/17 14:45 129/61 100 07/11/17 14:30 126/56 100 07/11/17 14:15 136/71 100 07/11/17 14:00 120/57 100 100 100 07/11/17 13:45 120/57 100 07/11/17 13:30 119/52 100 07/11/17 13:15 122/60 100 07/11/17 13:00 116/53 100 07/11/17 12:45 119/54 07/11/17 12:30 117/52 100 07/11/17 12:15 117/52 07/11/17 12:00 107/50 100 07/11/17 11:45 107/49 07/11/17 11:30 111/53 100 07/11/17 11:22 103/46 100 11/22/17 11:15 103/46 07/11/17 11:00 111/56 100 07/11/17 10:50 105/50 07/11/17 10:30 105/50 100 07/11/17 10:00 134/61 100 07/11/17 09:30 136/66 100 - Physical Examination General: Other (intubated, unresponsive) HEENT: Positive: PERRL Neck: Positive: neck supple Cardiac: Positive: Reg Rate and Rhythm Lungs: Positive: Decreased Breath Sounds Neuro: Positive: Other (intubated, unresponsive) Abdomen: Positive: Soft, Active Bowel Sounds Skin: Positive: Clear. Negative: Rash, Wound Musculoskeletal: No Fluid Collection, No Pain, Normal Range of Motion Extremities: Absent: edema - Labs and Meds CBC 07/12/17 Range/Units 04:37 WBC 12.9 H (4.5-11.0) K/mm3 RBC 2.62 L (3.65-5.03) M/mm3 Hgb 7.6 L (11.8-15.2) gm/dl Hct 24.0 L (35.5-45.6) % Plt Count 204 (140-440) K/mm3 Lymph # 0.6 L (1.2-5.4) K/mm3 [place] # 1.1 H (0.0-0.8) K/mm3 Eos # 0.2 (0.0-0.4) K/mm3 Baso # 0.0 (0.0-0.1) K/mm3 Comprehensive Metabolic Panel 07/12/17 Range/Units 04:37 Sodium 140 (137-145) mmol/L Potassium 4.0 (3.6-5.0) mmol/L Chloride 101.7 (98-107) mmol/L Carbon Dioxide 30 (22-30) mmol/L BUN 29 H (9-20) mg/dL Creatinine 2.1 H (0.8-1.5) mg/dL Glucose 137 H (75-100) mg/dL Calcium 8.0 L (8.4-10.2) mg/dL - Imaging and Cardiology EKG: report reviewed, image reviewed Echo: report reviewed (06/27/2017 showed EF 50-55%, mild LVH, impaired relaxation , RA mildly dilated, mild MR, mild pulm HTN with RVSP 45mmHg, moderate pleural fluid) - EKG Sinus rhythms and dysrhythmias: sinus rhythm AV and intraventricular conduction: right bundle branch block - Allied health notes Allied health notes reviewed: nursing
--- NOTE | 2017-07-12 09:35 | Progress Note ---
Assessment and Plan Assessment: 1) Shock after cardiac arrest (?cardiogenic ?hypovolemic ?septic): shock resolved. leukocytosis improving. Septic component etiology unclear ? colitis (CT abd negative). CRP=9 2) Seizures ? 3) DM-uncontrolled with DKA 4) ESRD on HD 5) Anemia still low Hg / thrombocytopenia resolved 6) Bloody Diarrhea versus melena ? colitis ?GI bleed. Hemo-occult + 7) Pleural effusion s/p thoracenthesis - transudate Plan: -follow-up procalcitonin -continue flagyl IV/ PO day 7 -contact isolation I will be off tomorrow, available on the phone and will be back rounding on the weekend Thank you Dr Moore for your consultation, will follow up with you. Laura Crocker MD Infectious Diseases Specialist [facility] ([facility]) M [phone] O [phone] Subjective Date of service: 07/12/17 Principal diagnosis: Acute Hypoxemic Resp Failure; S/P Cardiac Arrest; Hyperosmolar Non-ketotic Interval history: Remains on the vent +T feeds + small amount black loose stools on flexiseal. Microbiology: Blood cultures: 07/02 ngtd Urine cultures: Respiratory cultures: 07/02 Sandra Pleural fluid 07/06: ngtd Current Antimicrobials: metronidazole 07/06 Previous Antimicrobials: Zosyn 07/02 Vanco 07/02 Objective - Exam Narrative Exam: General appearance: sedated on the vent Eyes: anicteric sclerae, moist conjunctivae; no lid-lag; PERRLA HENT: Atraumatic; oropharynx +ETT +NGT Neck: Trachea midline; supple, no thyromegaly or lymphadenopathy Lungs: CTA, CV: rrr Abdomen: Soft, non-tender Extremities: peripheral edema Skin: Normal temperature, turgor and texture; no rash, ulcers or subcutaneous nodules Psych: unable to eval . Neuro: unable to eval Lines: right IJ HD, condom cath - Constitutional Vitals: Vital Signs Temp Pulse Resp BP Pulse Ox 98.1 F 91 H 13 136/64 100 07/12/17 08:00 07/12/17 09:23 07/12/17 08:41 07/12/17 09:23 07/12/17 08:30 Temperature -Last 24 Hours Temperature 98.1 F Temperature 98.0 F Temperature 97.8 F Temperature 98.0 F Temperature 97.7 F Temperature 98.3 F Temperature 98.2 F Temperature 98.3 F - Labs CBC & Chem 7: 07/12/17 04:37 07/12/17 04:37 Labs: Abnormal lab results 07/11/17 07/11/17 07/11/17 Range/Units 13:58 17:52 23:39 WBC (4.5-11.0) K/mm3 RBC (3.65-5.03) M/mm3 Hgb (11.8-15.2) gm/dl Hct (35.5-45.6) % RDW (13.2-15.2) % Lymph % (Auto) (13.4-35.0) % [place] % (Auto) (0.0-7.3) % Lymph # (1.2-5.4) K/mm3 [place] # (0.0-0.8) K/mm3 Seg Neutrophils % (40.0-70.0) % Seg Neutrophils # (1.8-7.7) K/mm3 BUN (9-20) mg/dL Creatinine (0.8-1.5) mg/dL Glucose (75-100) mg/dL POC Glucose 199 H 133 H 129 H (70-105) Calcium (8.4-10.2) mg/dL 07/12/17 07/12/17 07/12/17 Range/Units 04:37 04:37 05:39 WBC 12.9 H (4.5-11.0) K/mm3 RBC 2.62 L (3.65-5.03) M/mm3 Hgb 7.6 L (11.8-15.2) gm/dl Hct 24.0 L (35.5-45.6) % RDW 16.0 H (13.2-15.2) % Lymph % (Auto) 4.8 L (13.4-35.0) % [place] % (Auto) 8.6 H (0.0-7.3) % Lymph # 0.6 L (1.2-5.4) K/mm3 [place] # 1.1 H (0.0-0.8) K/mm3 Seg Neutrophils % 84.8 H (40.0-70.0) % Seg Neutrophils # 10.9 H (1.8-7.7) K/mm3 BUN 29 H (9-20) mg/dL Creatinine 2.1 H (0.8-1.5) mg/dL Glucose 137 H (75-100) mg/dL POC Glucose 149 H (70-105) Calcium 8.0 L (8.4-10.2) mg/dL
--- NOTE | 2017-07-12 10:36 | Progress Note ---
Subjective Principal diagnosis: Acute Hypoxemic Resp Failure; S/P Cardiac Arrest; Hyperosmolar Non-ketotic Interval history: Patient was seen today for follow-up, on many renal related issues Interdisciplinary notes were reviewed, patient is dialysis dependent 3 times a week Vitals labs intake and output medications were reviewed from today Allergies: Reviewed Social history: Reviewed Family history: Reviewed Physical examination HEENT: Oral mucosa moist no pharyngeal erythema Neck: Supple no JVD Chest:bibasilar few crackles Heart: Regular rate and rhythm S1-S2 heard no S3-S4 Abdomen: Soft nontender no renal bruit no CVA tenderness no suprapubic fullness Extremity: Mild edema dry skin no peripheral cyanosis pulses palpable Neurological: intubated Musculoskeletal: No joint effusion noted Assessment and plan End-stage renal disease patient is currently on maintenance hemodialysis Sunday, there is no indication for acute emergent renal replacement therapy today Hypertension: Patient is currently on amlodipine and carvedilol as well as when necessary hydralazine Anemia and end-stage renal disease currently on folic acid iron tablets Procrit as needed Respiratory failure currently remains intubated Admitted with the cardiac arrest/shock currently better Diabetes mellitus type 2 uncontrolled with diabetic ketoacidosis being followed by primary team Regards stool? Melena heme positive stools Pleural effusion status post thoracentesis noted to be transudative in nature at this time Currently being followed by cardiology and no new recommendations at this time status post cardiopulmonary arrest patient was in [place] in the emergency room has had non-STEMI type II Objective - Vital Signs Vital signs: Vital Signs - 12hr 07/11/17 07/11/17 07/11/17 22:45 23:00 23:15 Temperature Pulse Rate 90 89 91 H Pulse Rate [ Anterior Bilateral Throughout] Pulse Rate [ Bilateral] Pulse Rate [ From Monitor] Respiratory 12 13 13 Rate Respiratory Rate [Anterior Bilateral Throughout] Respiratory Rate [Bilateral ] Blood Pressure 131/67 137/68 131/67 O2 Sat by Pulse 100 100 100 Oximetry 07/11/17 07/11/17 07/11/17 23:24 23:26 23:30 Temperature Pulse Rate 87 89 Pulse Rate [ 87 Anterior Bilateral Throughout] Pulse Rate [ Bilateral] Pulse Rate [ From Monitor] Respiratory 13 Rate Respiratory 12 Rate [Anterior Bilateral Throughout] Respiratory Rate [Bilateral ] Blood Pressure 131/67 129/66 O2 Sat by Pulse 100 100 Oximetry 11/07/11/17 07/11/17 23:36 23:41 23:45 Temperature Pulse Rate 88 88 Pulse Rate [ 89 Anterior Bilateral Throughout] Pulse Rate [ 89 Bilateral] Pulse Rate [ From Monitor] Respiratory 12 12 Rate Respiratory 12 Rate [Anterior Bilateral Throughout] Respiratory 12 Rate [Bilateral ] Blood Pressure 129/66 124/63 O2 Sat by Pulse 100 100 Oximetry 07/12/17 07/12/17 07/12/17 00:00 00:15 00:30 Temperature 97.8 F Pulse Rate 80 81 82 Pulse Rate [ Anterior Bilateral Throughout] Pulse Rate [ Bilateral] Pulse Rate [ 92 H From Monitor] Respiratory 12 12 12 Rate Respiratory Rate [Anterior Bilateral Throughout] Respiratory Rate [Bilateral ] Blood Pressure 113/58 119/60 122/58 O2 Sat by Pulse 100 100 100 Oximetry 07/12/17 07/12/17 07/12/17 00:45 01:00 01:15 Temperature Pulse Rate 81 80 88 Pulse Rate [ Anterior Bilateral Throughout] Pulse Rate [ Bilateral] Pulse Rate [ From Monitor] Respiratory 12 12 12 Rate Respiratory Rate [Anterior Bilateral Throughout] Respiratory Rate [Bilateral ] Blood Pressure 122/59 125/63 128/62 O2 Sat by Pulse 100 100 100 Oximetry 07/12/17 07/12/17 07/12/17 01:30 01:45 02:00 Temperature Pulse Rate 89 88 89 Pulse Rate [ Anterior Bilateral Throughout] Pulse Rate [ Bilateral] Pulse Rate [ From Monitor] Respiratory 12 12 12 Rate Respiratory Rate [Anterior Bilateral Throughout] Respiratory Rate [Bilateral ] Blood Pressure 127/60 130/65 128/62 O2 Sat by Pulse 100 100 100 Oximetry 07/12/17 07/12/17 07/12/17 02:15 02:30 02:45 Temperature Pulse Rate 89 88 83 Pulse Rate [ Anterior Bilateral Throughout] Pulse Rate [ Bilateral] Pulse Rate [ From Monitor] Respiratory 12 12 12 Rate Respiratory Rate [Anterior Bilateral Throughout] Respiratory Rate [Bilateral ] Blood Pressure 131/66 133/67 131/63 O2 Sat by Pulse 100 100 100 Oximetry 07/12/17 07/12/17 07/12/17 03:00 03:15 03:30 Temperature Pulse Rate 88 84 83 Pulse Rate [ Anterior Bilateral Throughout] Pulse Rate [ Bilateral] Pulse Rate [ From Monitor] Respiratory 13 12 12 Rate Respiratory Rate [Anterior Bilateral Throughout] Respiratory Rate [Bilateral ] Blood Pressure 131/65 129/64 130/61 O2 Sat by Pulse 100 100 100 Oximetry 07/12/17 07/12/17 07/12/17 03:45 04:00 04:15 Temperature 98.0 F Pulse Rate 90 95 H 93 H Pulse Rate [ Anterior Bilateral Throughout] Pulse Rate [ Bilateral] Pulse Rate [ From Monitor] Respiratory 12 13 12 Rate Respiratory Rate [Anterior Bilateral Throughout] Respiratory Rate [Bilateral ] Blood Pressure 134/64 134/64 133/65 O2 Sat by Pulse 100 100 100 Oximetry 07/12/17 07/12/17 07/12/17 04:30 04:45 05:00 Temperature Pulse Rate 93 H 92 H 89 Pulse Rate [ Anterior Bilateral Throughout] Pulse Rate [ Bilateral] Pulse Rate [ From Monitor] Respiratory 13 12 12 Rate Respiratory Rate [Anterior Bilateral Throughout] Respiratory Rate [Bilateral ] Blood Pressure 133/66 131/64 128/63 O2 Sat by Pulse 100 100 100 Oximetry 07/12/17 07/12/17 07/12/17 05:15 05:30 05:45 Temperature Pulse Rate 89 89 84 Pulse Rate [ Anterior Bilateral Throughout] Pulse Rate [ Bilateral] Pulse Rate [ From Monitor] Respiratory 12 12 12 Rate Respiratory Rate [Anterior Bilateral Throughout] Respiratory Rate [Bilateral ] Blood Pressure 134/66 138/65 139/65 O2 Sat by Pulse 100 100 100 Oximetry 07/12/17 07/12/17 07/12/17 06:00 06:16 06:30 Temperature Pulse Rate 88 99 H Pulse Rate [ Anterior Bilateral Throughout] Pulse Rate [ Bilateral] Pulse Rate [ From Monitor] Respiratory 13 14 Rate Respiratory Rate [Anterior Bilateral Throughout] Respiratory Rate [Bilateral ] Blood Pressure 138/68 128/83 128/83 O2 Sat by Pulse 100 100 100 Oximetry 07/12/17 07/12/17 07/12/17 06:45 07:00 07:15 Temperature Pulse Rate 94 H 95 H 90 Pulse Rate [ Anterior Bilateral Throughout] Pulse Rate [ Bilateral] Pulse Rate [ From Monitor] Respiratory 11 L 11 L 12 Rate Respiratory Rate [Anterior Bilateral Throughout] Respiratory Rate [Bilateral ] Blood Pressure 144/71 148/68 129/66 O2 Sat by Pulse 100 100 100 Oximetry 07/12/17 07/12/17 07/12/17 07:30 07:45 08:00 Temperature 98.1 F Pulse Rate 90 91 H 92 H Pulse Rate [ Anterior Bilateral Throughout] Pulse Rate [ Bilateral] Pulse Rate [ From Monitor] Respiratory 12 12 11 L Rate Respiratory Rate [Anterior Bilateral Throughout] Respiratory Rate [Bilateral ] Blood Pressure 131/63 134/67 135/69 O2 Sat by Pulse 100 100 100 Oximetry 07/12/17 07/12/17 07/12/17 08:15 08:22 08:27 Temperature Pulse Rate 92 H 92 H Pulse Rate [ 88 Anterior Bilateral Throughout] Pulse Rate [ Bilateral] Pulse Rate [ From Monitor] Respiratory 12 14 Rate Respiratory 12 Rate [Anterior Bilateral Throughout] Respiratory Rate [Bilateral ] Blood Pressure 139/70 139/70 O2 Sat by Pulse 100 100 Oximetry 07/12/17 07/12/17 07/12/17 08:30 08:41 09:22 Temperature Pulse Rate 88 90 Pulse Rate [ 88 Anterior Bilateral Throughout] Pulse Rate [ Bilateral] Pulse Rate [ From Monitor] Respiratory 11 L Rate Respiratory 13 Rate [Anterior Bilateral Throughout] Respiratory Rate [Bilateral ] Blood Pressure 138/64 136/64 O2 Sat by Pulse 100 Oximetry 07/12/17 09:23 Temperature Pulse Rate 91 H Pulse Rate [ Anterior Bilateral Throughout] Pulse Rate [ Bilateral] Pulse Rate [ From Monitor] Respiratory Rate Respiratory Rate [Anterior Bilateral Throughout] Respiratory Rate [Bilateral ] Blood Pressure 136/64 O2 Sat by Pulse Oximetry - Lab 07/12/17 04:37 07/12/17 04:37 Most recent lab results Calcium 8.0 mg/dL (8.4-10.2) L 07/12/17 04:37 Phosphorus 3.80 mg/dL (2.5-4.5) 07/04/17 14:10 Magnesium 1.80 mg/dL (1.7-2.3) 07/04/17 14:10
--- NOTE | 2017-07-12 13:22 | Progress Note ---
Assessment and Plan Acute Hypoxemic Respiratory Failure on MVS Seizure Disorder s/p Cardiac Arrest ESRD on Dialysis Sepsis Syndrome Hyperosmolar non ketotic state Anemia Leucocytosis Acute Encephalopathy Thrombocytopenia - pleural fluid studies back and fluid was transudative - AMS still a rate limiting factor to safe extubation - EEG re-ordered (no reading on initial study could be located) - will place consult for tracheostomy at this point - continue and complete antibiotics per ID recs - continue prn hydralazine and resumed home amlodipine dose (10mg qd) and coreg - keep set rate at 12/min - continue daily PSV trials as tolerated - continue aspiration precautions / addressing VAP bundle daily - continue to wean FiO2 for sats > 94% - continue enteral nutrition as tolerated - continue bronchodilators and pulmonary toilet - continue and adjust AB's per ID recs - continue glycemic control with SSI and levemir (target BG <180mg/dl) - continue GI & VTE prophylaxis - Continue to monitor platelet count while on heparin - continue other care per attending / other consultants - flu and pneumovax addressed per protocol ...the hope is that as sepsis resolves mental status will improve but that has not borne out so far ....30' CCT without overlap Subjective Date of service: 07/12/17 Principal diagnosis: Acute Hypoxemic Resp Failure; S/P Cardiac Arrest; Hyperosmolar Non-ketotic Interval history: Patient is seen today for: Acute Hypoxemic Resp Failure; S/P Cardiac Arrest; Hyperosmolar Non-ketotic Seen and examined at bedside; 24hour events reviewed; nursing and respiratory care staff consulted; no adverse overnight events reported to me; remains on MVS ; tolerating PSV well; AMS is persistent; unable to reach his daughter re: tracheostomy but family has otherwise requested continued aggressive care. Objective Vital Signs - 12hr 07/12/17 07/12/17 07/12/17 01:30 01:45 02:00 Temperature Pulse Rate 89 88 89 Pulse Rate [ Anterior Bilateral Throughout] Respiratory 12 12 12 Rate Respiratory Rate [Anterior Bilateral Throughout] Blood Pressure 127/60 130/65 128/62 O2 Sat by Pulse 100 100 100 Oximetry 07/12/17 07/12/17 07/12/17 02:15 02:30 02:45 Temperature Pulse Rate 89 88 83 Pulse Rate [ Anterior Bilateral Throughout] Respiratory 12 12 12 Rate Respiratory Rate [Anterior Bilateral Throughout] Blood Pressure 131/66 133/67 131/63 O2 Sat by Pulse 100 100 100 Oximetry 07/12/17 07/12/17 07/12/17 03:00 03:15 03:30 Temperature Pulse Rate 88 84 83 Pulse Rate [ Anterior Bilateral Throughout] Respiratory 13 12 12 Rate Respiratory Rate [Anterior Bilateral Throughout] Blood Pressure 131/65 129/64 130/61 O2 Sat by Pulse 100 100 100 Oximetry 07/12/17 07/12/17 07/12/17 03:45 04:00 04:15 Temperature 98.0 F Pulse Rate 90 95 H 93 H Pulse Rate [ Anterior Bilateral Throughout] Respiratory 12 13 12 Rate Respiratory Rate [Anterior Bilateral Throughout] Blood Pressure 134/64 134/64 133/65 O2 Sat by Pulse 100 100 100 Oximetry 07/12/17 07/12/17 07/12/17 04:30 04:45 05:00 Temperature Pulse Rate 93 H 92 H 89 Pulse Rate [ Anterior Bilateral Throughout] Respiratory 13 12 12 Rate Respiratory Rate [Anterior Bilateral Throughout] Blood Pressure 133/66 131/64 128/63 O2 Sat by Pulse 100 100 100 Oximetry 07/12/17 07/12/17 07/12/17 05:15 05:30 05:45 Temperature Pulse Rate 89 89 84 Pulse Rate [ Anterior Bilateral Throughout] Respiratory 12 12 12 Rate Respiratory Rate [Anterior Bilateral Throughout] Blood Pressure 134/66 138/65 139/65 O2 Sat by Pulse 100 100 100 Oximetry 07/12/17 07/12/17 07/12/17 06:00 06:16 06:30 Temperature Pulse Rate 88 99 H Pulse Rate [ Anterior Bilateral Throughout] Respiratory 13 14 Rate Respiratory Rate [Anterior Bilateral Throughout] Blood Pressure 138/68 128/83 128/83 O2 Sat by Pulse 100 100 100 Oximetry 07/12/17 07/12/17 07/12/17 06:45 07:00 07:15 Temperature Pulse Rate 94 H 95 H 90 Pulse Rate [ Anterior Bilateral Throughout] Respiratory 11 L 11 L 12 Rate Respiratory Rate [Anterior Bilateral Throughout] Blood Pressure 144/71 148/68 129/66 O2 Sat by Pulse 100 100 100 Oximetry 07/12/17 07/12/17 07/12/17 07:30 07:45 08:00 Temperature 98.1 F Pulse Rate 90 91 H 92 H Pulse Rate [ Anterior Bilateral Throughout] Respiratory 12 12 11 L Rate Respiratory Rate [Anterior Bilateral Throughout] Blood Pressure 131/63 134/67 135/69 O2 Sat by Pulse 100 100 100 Oximetry 07/12/17 07/12/17 07/12/17 08:15 08:22 08:27 Temperature Pulse Rate 92 H 92 H Pulse Rate [ 88 Anterior Bilateral Throughout] Respiratory 12 14 Rate Respiratory 12 Rate [Anterior Bilateral Throughout] Blood Pressure 139/70 139/70 O2 Sat by Pulse 100 100 Oximetry 07/12/17 07/12/17 07/12/17 08:30 08:41 08:45 Temperature Pulse Rate 88 91 H Pulse Rate [ 88 Anterior Bilateral Throughout] Respiratory 11 L 9 L Rate Respiratory 13 Rate [Anterior Bilateral Throughout] Blood Pressure 138/64 131/65 O2 Sat by Pulse 100 100 Oximetry 07/12/17 07/12/17 07/12/17 09:00 09:15 09:22 Temperature Pulse Rate 90 92 H 90 Pulse Rate [ Anterior Bilateral Throughout] Respiratory 12 11 L Rate Respiratory Rate [Anterior Bilateral Throughout] Blood Pressure 131/62 136/64 136/64 O2 Sat by Pulse 100 100 Oximetry 07/12/17 07/12/17 07/12/17 09:23 09:30 09:46 Temperature Pulse Rate 91 H 91 H 92 H Pulse Rate [ Anterior Bilateral Throughout] Respiratory 10 L 10 L Rate Respiratory Rate [Anterior Bilateral Throughout] Blood Pressure 136/64 132/63 132/63 O2 Sat by Pulse 100 100 Oximetry 07/12/17 07/12/17 07/12/17 10:00 10:15 10:30 Temperature Pulse Rate 90 85 87 Pulse Rate [ Anterior Bilateral Throughout] Respiratory 11 L 11 L 12 Rate Respiratory Rate [Anterior Bilateral Throughout] Blood Pressure 128/60 128/60 128/60 O2 Sat by Pulse 100 100 100 Oximetry 07/12/17 07/12/17 07/12/17 10:46 11:00 11:16 Temperature Pulse Rate 82 84 82 Pulse Rate [ Anterior Bilateral Throughout] Respiratory 8 L 12 11 L Rate Respiratory Rate [Anterior Bilateral Throughout] Blood Pressure 128/60 128/60 112/53 O2 Sat by Pulse 100 100 100 Oximetry 07/12/17 07/12/17 11:59 12:00 Temperature 97.3 F L Pulse Rate 82 Pulse Rate [ Anterior Bilateral Throughout] Respiratory 13 Rate Respiratory Rate [Anterior Bilateral Throughout] Blood Pressure 112/53 O2 Sat by Pulse 100 Oximetry Constitutional: no acute distress, other (encephalopathic) Eyes: non-icteric ENT: oropharynx moist, other (ETT at 25cm TIKI) Neck: supple, no lymphadenopathy, JVD, other (no thyromegally) Effort: mildly labored Ascultation: Bilateral: diminished breath sounds (bases), rales Percussion: Bilateral: not dull Cardiovascular: regular rate and rhythm, other (no rubs / murmurs) Gastrointestinal: normoactive bowel sounds, soft, non-tender, non-distended, other (no HSM) Integumentary: normal Extremities: no cyanosis, no edema, pulses normal, no ischemia or petechiae Neurologic: pupils equal and round, unable to assess, other (no spontaneous limb movements) Psychiatric: other (unable to assess) CBC and BMP: 07/16/17 08:32 07/15/17 12:52 ABG, PT/INR, D-dimer: ABG POC ABG pH 7.448 (7.35-7.45) 07/10/17 14:14 POC ABG pCO2 39.1 (35-45) 07/10/17 14:14 POC ABG pO2 138 (80-105) H 07/10/17 14:14 POC ABG HCO3 27.0 07/10/17 14:14 POC ABG Total CO2 28 07/10/17 14:14 POC ABG O2 Sat 99 07/10/17 14:14 PT/INR, D-dimer PT 12.9 Sec. (12.2-14.9) 07/06/17 08:30 INR 0.93 (0.87-1.13) 07/06/17 08:30 Abnormal lab findings: Abnormal Labs 07/02/17 07/02/17 07/02/17 15:03 15:12 17:49 WBC 13.5 H RBC 3.47 L Hgb 9.9 L Hct 33.1 L MCV 96 H MCHC 30 L RDW 15.4 H Plt Count 130 L Lymph % (Auto) [place] % (Auto) Lymph # [place] # Seg Neutrophils % Seg Neuts % (Manual) 95.0 H Lymphocytes % (Manual) 3.0 L Seg Neutrophils # Seg Neutrophils # Man 12.8 H Lymphocytes # (Manual) 0.4 L POC ABG pH POC ABG pCO2 POC ABG pO2 Sodium Potassium Chloride Carbon Dioxide BUN Creatinine Glucose POC Glucose > 500 H Lactic Acid 7.80 H* Calcium Ionized Calcium Alkaline Phosphatase Lactate Dehydrogenase CK-MB (CK-2) Troponin T C-Reactive Protein Total Protein Albumin LDL Cholesterol Direct Fluid Total Protein Salicylates 07/02/17 07/02/17 07/02/17 20:29 21:31 23:38 WBC RBC Hgb Hct MCV MCHC RDW Plt Count Lymph % (Auto) [place] % (Auto) Lymph # [place] # Seg Neutrophils % Seg Neuts % (Manual) Lymphocytes % (Manual) Seg Neutrophils # Seg Neutrophils # Man Lymphocytes # (Manual) POC ABG pH POC ABG pCO2 POC ABG pO2 Sodium 129 L 132 L Potassium Chloride 87.2 L 93.7 L Carbon Dioxide 18 L 15 L BUN 51 H 47 H Creatinine 4.3 H 4.1 H Glucose 950 H* 825 H* POC Glucose Lactic Acid 5.70 H* Calcium 7.1 L 6.8 L Ionized Calcium Alkaline Phosphatase Lactate Dehydrogenase CK-MB (CK-2) Troponin T C-Reactive Protein Total Protein Albumin LDL Cholesterol Direct Fluid Total Protein Salicylates 07/02/17 07/02/17 07/02/17 23:38 23:44 Unknown WBC RBC Hgb Hct MCV MCHC RDW Plt Count Lymph % (Auto) [place] % (Auto) Lymph # [place] # Seg Neutrophils % Seg Neuts % (Manual) Lymphocytes % (Manual) Seg Neutrophils # Seg Neutrophils # Man Lymphocytes # (Manual) POC ABG pH POC ABG pCO2 POC ABG pO2 Sodium 132 L 125 L D Potassium Chloride 94.6 L 85.6 L Carbon Dioxide 17 L 19 L D BUN 51 H 50 H Creatinine 4.1 H 4.4 H D Glucose 772 H* 1113 H* POC Glucose > 500 H Lactic Acid Calcium 6.7 L 7.2 L Ionized Calcium Alkaline Phosphatase 139 H Lactate Dehydrogenase CK-MB (CK-2) Troponin T C-Reactive Protein Total Protein 6.1 L Albumin 3.3 L LDL Cholesterol Direct Fluid Total Protein Salicylates 07/02/17 07/02/17 07/03/17 Unknown Unknown 01:00 WBC RBC Hgb Hct MCV MCHC RDW Plt Count Lymph % (Auto) [place] % (Auto) Lymph # [place] # Seg Neutrophils % Seg Neuts % (Manual) Lymphocytes % (Manual) Seg Neutrophils # Seg Neutrophils # Man Lymphocytes # (Manual) POC ABG pH POC ABG pCO2 POC ABG pO2 Sodium 134 L Potassium Chloride 96.4 L Carbon Dioxide 19 L BUN 50 H Creatinine 4.0 H Glucose 677 H* POC Glucose Lactic Acid 6.30 H* Calcium 6.6 L Ionized Calcium Alkaline Phosphatase Lactate Dehydrogenase CK-MB (CK-2) Troponin T C-Reactive Protein Total Protein Albumin LDL Cholesterol Direct Fluid Total Protein Salicylates < 0.3 L 07/03/17 07/03/17 07/03/17 01:04 02:15 02:15 WBC RBC Hgb Hct MCV MCHC RDW Plt Count Lymph % (Auto) [place] % (Auto) Lymph # [place] # Seg Neutrophils % Seg Neuts % (Manual) Lymphocytes % (Manual) Seg Neutrophils # Seg Neutrophils # Man Lymphocytes # (Manual) POC ABG pH POC ABG pCO2 POC ABG pO2 Sodium 134 L Potassium Chloride 97.6 L Carbon Dioxide 19 L BUN 50 H Creatinine 4.2 H Glucose 592 H* POC Glucose > 500 H Lactic Acid 4.30 H* Calcium 6.6 L Ionized Calcium Alkaline Phosphatase Lactate Dehydrogenase CK-MB (CK-2) Troponin T C-Reactive Protein Total Protein Albumin LDL Cholesterol Direct Fluid Total Protein Salicylates 07/03/17 07/03/17 07/03/17 02:21 03:25 04:10 WBC RBC Hgb Hct MCV MCHC RDW Plt Count Lymph % (Auto) [place] % (Auto) Lymph # [place] # Seg Neutrophils % Seg Neuts % (Manual) Lymphocytes % (Manual) Seg Neutrophils # Seg Neutrophils # Man Lymphocytes # (Manual) POC ABG pH POC ABG pCO2 POC ABG pO2 Sodium Potassium Chloride Carbon Dioxide 19 L BUN 50 H Creatinine 4.0 H Glucose 416 H POC Glucose 482 H > 500 H Lactic Acid Calcium 6.8 L Ionized Calcium Alkaline Phosphatase Lactate Dehydrogenase CK-MB (CK-2) Troponin T C-Reactive Protein Total Protein Albumin LDL Cholesterol Direct Fluid Total Protein Salicylates 07/03/17 07/03/17 07/03/17 04:30 04:36 05:33 WBC RBC Hgb Hct MCV MCHC RDW Plt Count Lymph % (Auto) [place] % (Auto) Lymph # [place] # Seg Neutrophils % Seg Neuts % (Manual) Lymphocytes % (Manual) Seg Neutrophils # Seg Neutrophils # Man Lymphocytes # (Manual) POC ABG pH 7.311 L POC ABG pCO2 33.5 L POC ABG pO2 73 L Sodium Potassium Chloride Carbon Dioxide BUN Creatinine Glucose POC Glucose 389 H 326 H Lactic Acid Calcium Ionized Calcium Alkaline Phosphatase Lactate Dehydrogenase CK-MB (CK-2) Troponin T C-Reactive Protein Total Protein Albumin LDL Cholesterol Direct Fluid Total Protein Salicylates 07/03/17 07/03/17 07/03/17 06:06 07:38 09:58 WBC RBC Hgb Hct MCV MCHC RDW Plt Count Lymph % (Auto) [place] % (Auto) Lymph # [place] # Seg Neutrophils % Seg Neuts % (Manual) Lymphocytes % (Manual) Seg Neutrophils # Seg Neutrophils # Man Lymphocytes # (Manual) POC ABG pH POC ABG pCO2 POC ABG pO2 Sodium Potassium Chloride Carbon Dioxide BUN Creatinine Glucose POC Glucose 247 H 118 H 52 L Lactic Acid Calcium Ionized Calcium Alkaline Phosphatase Lactate Dehydrogenase CK-MB (CK-2) Troponin T C-Reactive Protein Total Protein Albumin LDL Cholesterol Direct Fluid Total Protein Salicylates 07/03/17 07/03/17 07/03/17 11:00 13:16 15:02 WBC RBC Hgb Hct MCV MCHC RDW Plt Count Lymph % (Auto) [place] % (Auto) Lymph # [place] # Seg Neutrophils % Seg Neuts % (Manual) Lymphocytes % (Manual) Seg Neutrophils # Seg Neutrophils # Man Lymphocytes # (Manual) POC ABG pH POC ABG pCO2 POC ABG pO2 Sodium Potassium Chloride Carbon Dioxide BUN Creatinine Glucose POC Glucose 64 L 112 H 158 H Lactic Acid Calcium Ionized Calcium Alkaline Phosphatase Lactate Dehydrogenase CK-MB (CK-2) Troponin T C-Reactive Protein Total Protein Albumin LDL Cholesterol Direct Fluid Total Protein Salicylates 07/03/17 07/03/17 07/03/17 18:17 Unknown Unknown WBC RBC Hgb Hct MCV MCHC RDW Plt Count Lymph % (Auto) [place] % (Auto) Lymph # [place] # Seg Neutrophils % Seg Neuts % (Manual) Lymphocytes % (Manual) Seg Neutrophils # Seg Neutrophils # Man Lymphocytes # (Manual) POC ABG pH POC ABG pCO2 POC ABG pO2 Sodium Potassium Chloride Carbon Dioxide BUN Creatinine Glucose POC Glucose 131 H Lactic Acid 2.40 H* Calcium Ionized Calcium Alkaline Phosphatase Lactate Dehydrogenase CK-MB (CK-2) Troponin T C-Reactive Protein 1.90 H Total Protein Albumin LDL Cholesterol Direct Fluid Total Protein Salicylates 07/03/17 07/04/17 07/04/17 Unknown 00:13 02:04 WBC RBC Hgb Hct MCV MCHC RDW Plt Count Lymph % (Auto) [place] % (Auto) Lymph # [place] # Seg Neutrophils % Seg Neuts % (Manual) Lymphocytes % (Manual) Seg Neutrophils # Seg Neutrophils # Man Lymphocytes # (Manual) POC ABG pH POC ABG pCO2 POC ABG pO2 Sodium Potassium Chloride Carbon Dioxide BUN 52 H Creatinine 4.3 H Glucose POC Glucose 69 L 111 H Lactic Acid Calcium 7.2 L Ionized Calcium Alkaline Phosphatase Lactate Dehydrogenase CK-MB (CK-2) Troponin T C-Reactive Protein Total Protein Albumin LDL Cholesterol Direct Fluid Total Protein Salicylates 07/04/17 07/04/17 07/04/17 04:38 08:00 08:00 WBC 28.3 H RBC 3.55 L Hgb 10.3 L Hct 31.2 L MCV MCHC RDW 15.3 H Plt Count 101 L Lymph % (Auto) [place] % (Auto) Lymph # [place] # Seg Neutrophils % Seg Neuts % (Manual) Lymphocytes % (Manual) Seg Neutrophils # Seg Neutrophils # Man Lymphocytes # (Manual) POC ABG pH POC ABG pCO2 27.6 L POC ABG pO2 Sodium Potassium Chloride Carbon Dioxide 20 L BUN 62 H Creatinine 4.7 H Glucose POC Glucose Lactic Acid Calcium 7.0 L Ionized Calcium Alkaline Phosphatase Lactate Dehydrogenase CK-MB (CK-2) Troponin T C-Reactive Protein Total Protein Albumin LDL Cholesterol Direct Fluid Total Protein Salicylates 07/04/17 07/04/17 07/04/17 14:10 14:10 14:33 WBC RBC Hgb Hct MCV MCHC RDW Plt Count Lymph % (Auto) [place] % (Auto) Lymph # [place] # Seg Neutrophils % Seg Neuts % (Manual) Lymphocytes % (Manual) Seg Neutrophils # Seg Neutrophils # Man Lymphocytes # (Manual) POC ABG pH 7.474 H POC ABG pCO2 29.4 L POC ABG pO2 Sodium Potassium Chloride Carbon Dioxide BUN Creatinine Glucose POC Glucose Lactic Acid Calcium Ionized Calcium 4.6 L Alkaline Phosphatase Lactate Dehydrogenase CK-MB (CK-2) 4.3 H Troponin T 0.282 H* C-Reactive Protein Total Protein Albumin LDL Cholesterol Direct 22 L Fluid Total Protein Salicylates 07/04/17 07/04/17 07/04/17 17:26 20:40 23:34 WBC RBC Hgb Hct MCV MCHC RDW Plt Count Lymph % (Auto) [place] % (Auto) Lymph # [place] # Seg Neutrophils % Seg Neuts % (Manual) Lymphocytes % (Manual) Seg Neutrophils # Seg Neutrophils # Man Lymphocytes # (Manual) POC ABG pH POC ABG pCO2 POC ABG pO2 Sodium Potassium Chloride Carbon Dioxide BUN Creatinine Glucose POC Glucose 201 H 188 H Lactic Acid Calcium Ionized Calcium Alkaline Phosphatase Lactate Dehydrogenase CK-MB (CK-2) Troponin T 0.276 H* C-Reactive Protein Total Protein Albumin LDL Cholesterol Direct Fluid Total Protein Salicylates 07/05/17 07/05/17 07/05/17 05:42 07:50 11:52 WBC RBC Hgb Hct MCV MCHC RDW Plt Count Lymph % (Auto) [place] % (Auto) Lymph # [place] # Seg Neutrophils % Seg Neuts % (Manual) Lymphocytes % (Manual) Seg Neutrophils # Seg Neutrophils # Man Lymphocytes # (Manual) POC ABG pH POC ABG pCO2 POC ABG pO2 117 H Sodium Potassium Chloride Carbon Dioxide BUN Creatinine Glucose POC Glucose 126 H 110 H Lactic Acid Calcium Ionized Calcium Alkaline Phosphatase Lactate Dehydrogenase CK-MB (CK-2) Troponin T C-Reactive Protein Total Protein Albumin LDL Cholesterol Direct Fluid Total Protein Salicylates 07/05/17 07/05/17 07/05/17 12:40 17:51 18:12 WBC RBC Hgb Hct MCV MCHC RDW Plt Count Lymph % (Auto) [place] % (Auto) Lymph # [place] # Seg Neutrophils % Seg Neuts % (Manual) Lymphocytes % (Manual) Seg Neutrophils # Seg Neutrophils # Man Lymphocytes # (Manual) POC ABG pH POC ABG pCO2 POC ABG pO2 Sodium Potassium Chloride Carbon Dioxide BUN Creatinine Glucose POC Glucose 57 L 69 L Lactic Acid Calcium Ionized Calcium Alkaline Phosphatase Lactate Dehydrogenase CK-MB (CK-2) Troponin T 0.277 H* C-Reactive Protein Total Protein Albumin LDL Cholesterol Direct Fluid Total Protein Salicylates 07/05/17 07/05/17 07/05/17 Unknown Unknown Unknown WBC 22.2 H RBC 3.24 L Hgb 9.7 L Hct 28.6 L MCV MCHC RDW Plt Count 89 L Lymph % (Auto) [place] % (Auto) Lymph # [place] # Seg Neutrophils % Seg Neuts % (Manual) 89.0 H Lymphocytes % (Manual) 7.0 L Seg Neutrophils # Seg Neutrophils # Man 19.8 H Lymphocytes # (Manual) POC ABG pH POC ABG pCO2 POC ABG pO2 Sodium Potassium 3.5 L Chloride Carbon Dioxide BUN 37 H Creatinine 3.1 H Glucose 120 H POC Glucose Lactic Acid 2.30 H* Calcium 7.7 L Ionized Calcium Alkaline Phosphatase Lactate Dehydrogenase CK-MB (CK-2) Troponin T C-Reactive Protein Total Protein Albumin LDL Cholesterol Direct Fluid Total Protein Salicylates 07/05/17 07/06/17 07/06/17 Unknown 03:25 03:25 WBC 17.7 H RBC 3.14 L Hgb 9.3 L Hct 27.8 L MCV MCHC RDW 15.7 H Plt Count 82 L Lymph % (Auto) 2.5 L [place] % (Auto) Lymph # 0.4 L [place] # 1.1 H Seg Neutrophils % 90.0 H Seg Neuts % (Manual) Lymphocytes % (Manual) Seg Neutrophils # 15.9 H Seg Neutrophils # Man Lymphocytes # (Manual) POC ABG pH POC ABG pCO2 POC ABG pO2 Sodium Potassium 3.3 L Chloride Carbon Dioxide BUN 44 H Creatinine 3.6 H Glucose 132 H POC Glucose Lactic Acid Calcium 7.4 L Ionized Calcium Alkaline Phosphatase Lactate Dehydrogenase CK-MB (CK-2) Troponin T C-Reactive Protein 9.90 H Total Protein Albumin LDL Cholesterol Direct Fluid Total Protein Salicylates 07/06/17 07/06/17 07/06/17 04:19 05:24 08:30 WBC RBC Hgb Hct MCV MCHC RDW Plt Count Lymph % (Auto) [place] % (Auto) Lymph # [place] # Seg Neutrophils % Seg Neuts % (Manual) Lymphocytes % (Manual) Seg Neutrophils # Seg Neutrophils # Man Lymphocytes # (Manual) POC ABG pH POC ABG pCO2 34.3 L POC ABG pO2 Sodium Potassium Chloride Carbon Dioxide BUN Creatinine Glucose POC Glucose 174 H Lactic Acid Calcium Ionized Calcium Alkaline Phosphatase Lactate Dehydrogenase 880 H CK-MB (CK-2) Troponin T C-Reactive Protein Total Protein 4.9 L Albumin LDL Cholesterol Direct Fluid Total Protein Salicylates 07/06/17 07/06/17 07/06/17 11:13 17:14 23:38 WBC RBC Hgb Hct MCV MCHC RDW Plt Count Lymph % (Auto) [place] % (Auto) Lymph # [place] # Seg Neutrophils % Seg Neuts % (Manual) Lymphocytes % (Manual) Seg Neutrophils # Seg Neutrophils # Man Lymphocytes # (Manual) POC ABG pH POC ABG pCO2 POC ABG pO2 Sodium Potassium Chloride Carbon Dioxide BUN Creatinine Glucose POC Glucose 216 H 211 H 122 H Lactic Acid Calcium Ionized Calcium Alkaline Phosphatase Lactate Dehydrogenase CK-MB (CK-2) Troponin T C-Reactive Protein Total Protein Albumin LDL Cholesterol Direct Fluid Total Protein Salicylates 07/06/17 07/07/17 07/07/17 Unknown 04:38 05:00 WBC 16.1 H RBC 3.00 L Hgb 8.9 L Hct 26.6 L MCV MCHC RDW 15.6 H Plt Count 106 L Lymph % (Auto) 4.1 L [place] % (Auto) 8.0 H Lymph # 0.7 L [place] # 1.3 H Seg Neutrophils % 86.6 H Seg Neuts % (Manual) Lymphocytes % (Manual) Seg Neutrophils # 13.9 H Seg Neutrophils # Man Lymphocytes # (Manual) POC ABG pH 7.455 H POC ABG pCO2 POC ABG pO2 134 H Sodium Potassium Chloride Carbon Dioxide BUN Creatinine Glucose POC Glucose Lactic Acid Calcium Ionized Calcium Alkaline Phosphatase Lactate Dehydrogenase CK-MB (CK-2) Troponin T C-Reactive Protein Total Protein Albumin LDL Cholesterol Direct Fluid Total Protein < 3.0 L Salicylates 07/07/17 07/07/17 07/07/17 05:00 05:17 11:33 WBC RBC Hgb Hct MCV MCHC RDW Plt Count Lymph % (Auto) [place] % (Auto) Lymph # [place] # Seg Neutrophils % Seg Neuts % (Manual) Lymphocytes % (Manual) Seg Neutrophils # Seg Neutrophils # Man Lymphocytes # (Manual) POC ABG pH POC ABG pCO2 POC ABG pO2 Sodium Potassium Chloride Carbon Dioxide BUN 30 H Creatinine 2.8 H Glucose 188 H POC Glucose 189 H 275 H Lactic Acid Calcium 7.9 L Ionized Calcium Alkaline Phosphatase Lactate Dehydrogenase CK-MB (CK-2) Troponin T C-Reactive Protein Total Protein Albumin LDL Cholesterol Direct Fluid Total Protein Salicylates 07/07/17 07/07/17 07/07/17 16:04 17:08 23:45 WBC RBC Hgb Hct MCV MCHC RDW Plt Count Lymph % (Auto) [place] % (Auto) Lymph # [place] # Seg Neutrophils % Seg Neuts % (Manual) Lymphocytes % (Manual) Seg Neutrophils # Seg Neutrophils # Man Lymphocytes # (Manual) POC ABG pH POC ABG pCO2 POC ABG pO2 126 H Sodium Potassium Chloride Carbon Dioxide BUN Creatinine Glucose POC Glucose 241 H 118 H Lactic Acid Calcium Ionized Calcium Alkaline Phosphatase Lactate Dehydrogenase CK-MB (CK-2) Troponin T C-Reactive Protein Total Protein Albumin LDL Cholesterol Direct Fluid Total Protein Salicylates 07/08/17 07/08/17 07/08/17 05:30 05:54 06:12 WBC 17.0 H RBC 3.27 L Hgb 9.5 L Hct 29.1 L MCV MCHC RDW 15.6 H Plt Count 133 L Lymph % (Auto) 4.6 L [place] % (Auto) 9.2 H Lymph # 0.8 L [place] # 1.6 H Seg Neutrophils % 83.9 H Seg Neuts % (Manual) Lymphocytes % (Manual) Seg Neutrophils # 14.3 H Seg Neutrophils # Man Lymphocytes # (Manual) POC ABG pH 7.477 H POC ABG pCO2 POC ABG pO2 118 H Sodium Potassium Chloride Carbon Dioxide BUN Creatinine Glucose POC Glucose 199 H Lactic Acid Calcium Ionized Calcium Alkaline Phosphatase Lactate Dehydrogenase CK-MB (CK-2) Troponin T C-Reactive Protein Total Protein Albumin LDL Cholesterol Direct Fluid Total Protein Salicylates 07/08/17 07/08/17 07/08/17 06:12 11:37 17:21 WBC RBC Hgb Hct MCV MCHC RDW Plt Count Lymph % (Auto) [place] % (Auto) Lymph # [place] # Seg Neutrophils % Seg Neuts % (Manual) Lymphocytes % (Manual) Seg Neutrophils # Seg Neutrophils # Man Lymphocytes # (Manual) POC ABG pH POC ABG pCO2 POC ABG pO2 Sodium Potassium Chloride Carbon Dioxide BUN 44 H Creatinine 3.4 H Glucose 190 H POC Glucose 236 H 186 H Lactic Acid Calcium 7.8 L Ionized Calcium Alkaline Phosphatase Lactate Dehydrogenase CK-MB (CK-2) Troponin T C-Reactive Protein Total Protein Albumin LDL Cholesterol Direct Fluid Total Protein Salicylates 07/08/17 07/09/17 07/09/17 23:09 04:27 05:02 WBC 17.8 H RBC 2.88 L Hgb 8.5 L Hct 25.6 L MCV MCHC RDW 15.5 H Plt Count Lymph % (Auto) 4.6 L [place] % (Auto) 10.2 H Lymph # 0.8 L [place] # 1.8 H Seg Neutrophils % 83.4 H Seg Neuts % (Manual) Lymphocytes % (Manual) Seg Neutrophils # 14.8 H Seg Neutrophils # Man Lymphocytes # (Manual) POC ABG pH POC ABG pCO2 POC ABG pO2 132 H Sodium Potassium Chloride Carbon Dioxide BUN Creatinine Glucose POC Glucose 203 H Lactic Acid Calcium Ionized Calcium Alkaline Phosphatase Lactate Dehydrogenase CK-MB (CK-2) Troponin T C-Reactive Protein Total Protein Albumin LDL Cholesterol Direct Fluid Total Protein Salicylates 07/09/17 07/09/17 07/09/17 05:02 05:33 12:07 WBC RBC Hgb Hct MCV MCHC RDW Plt Count Lymph % (Auto) [place] % (Auto) Lymph # [place] # Seg Neutrophils % Seg Neuts % (Manual) Lymphocytes % (Manual) Seg Neutrophils # Seg Neutrophils # Man Lymphocytes # (Manual) POC ABG pH POC ABG pCO2 POC ABG pO2 Sodium Potassium Chloride Carbon Dioxide BUN 61 H Creatinine 4.0 H Glucose 183 H POC Glucose 177 H 276 H Lactic Acid Calcium 7.6 L Ionized Calcium Alkaline Phosphatase Lactate Dehydrogenase CK-MB (CK-2) Troponin T C-Reactive Protein Total Protein Albumin LDL Cholesterol Direct Fluid Total Protein Salicylates 07/09/17 07/10/17 07/10/17 18:54 03:50 03:50 WBC 16.8 H RBC 2.77 L Hgb 8.1 L Hct 24.9 L MCV MCHC RDW 15.7 H Plt Count Lymph % (Auto) 4.3 L [place] % (Auto) 10.8 H Lymph # 0.7 L [place] # 1.8 H Seg Neutrophils % 83.5 H Seg Neuts % (Manual) Lymphocytes % (Manual) Seg Neutrophils # 14.1 H Seg Neutrophils # Man Lymphocytes # (Manual) POC ABG pH POC ABG pCO2 POC ABG pO2 Sodium Potassium Chloride Carbon Dioxide BUN 31 H Creatinine 2.5 H Glucose 129 H POC Glucose 178 H Lactic Acid Calcium 8.1 L Ionized Calcium Alkaline Phosphatase Lactate Dehydrogenase CK-MB (CK-2) Troponin T C-Reactive Protein Total Protein Albumin LDL Cholesterol Direct Fluid Total Protein Salicylates 07/10/17 07/10/17 07/10/17 05:41 10:02 10:07 WBC 16.3 H RBC 2.66 L Hgb 7.9 L Hct 23.5 L MCV MCHC RDW 16.1 H Plt Count Lymph % (Auto) 4.8 L [place] % (Auto) 9.6 H Lymph # 0.8 L [place] # 1.6 H Seg Neutrophils % 84.0 H Seg Neuts % (Manual) Lymphocytes % (Manual) Seg Neutrophils # 13.7 H Seg Neutrophils # Man Lymphocytes # (Manual) POC ABG pH POC ABG pCO2 POC ABG pO2 Sodium Potassium Chloride Carbon Dioxide BUN 35 H Creatinine 2.6 H Glucose 196 H POC Glucose 160 H Lactic Acid Calcium 7.9 L Ionized Calcium Alkaline Phosphatase Lactate Dehydrogenase CK-MB (CK-2) Troponin T C-Reactive Protein Total Protein Albumin LDL Cholesterol Direct Fluid Total Protein Salicylates 07/10/17 07/10/17 07/10/17 11:21 14:14 16:36 WBC RBC Hgb Hct MCV MCHC RDW Plt Count Lymph % (Auto) [place] % (Auto) Lymph # [place] # Seg Neutrophils % Seg Neuts % (Manual) Lymphocytes % (Manual) Seg Neutrophils # Seg Neutrophils # Man Lymphocytes # (Manual) POC ABG pH POC ABG pCO2 POC ABG pO2 138 H Sodium Potassium Chloride Carbon Dioxide BUN Creatinine Glucose POC Glucose 206 H 133 H Lactic Acid Calcium Ionized Calcium Alkaline Phosphatase Lactate Dehydrogenase CK-MB (CK-2) Troponin T C-Reactive Protein Total Protein Albumin LDL Cholesterol Direct Fluid Total Protein Salicylates 07/11/17 07/11/17 07/11/17 04:08 08:19 13:58 WBC RBC Hgb Hct MCV MCHC RDW Plt Count Lymph % (Auto) [place] % (Auto) Lymph # [place] # Seg Neutrophils % Seg Neuts % (Manual) Lymphocytes % (Manual) Seg Neutrophils # Seg Neutrophils # Man Lymphocytes # (Manual) POC ABG pH POC ABG pCO2 POC ABG pO2 Sodium Potassium Chloride Carbon Dioxide BUN 45 H Creatinine 3.1 H Glucose POC Glucose 155 H 199 H Lactic Acid Calcium 7.8 L Ionized Calcium Alkaline Phosphatase Lactate Dehydrogenase CK-MB (CK-2) Troponin T C-Reactive Protein Total Protein Albumin LDL Cholesterol Direct Fluid Total Protein Salicylates 07/11/17 07/11/17 07/12/17 17:52 23:39 04:37 WBC 12.9 H RBC 2.62 L Hgb 7.6 L Hct 24.0 L MCV MCHC RDW 16.0 H Plt Count Lymph % (Auto) 4.8 L [place] % (Auto) 8.6 H Lymph # 0.6 L [place] # 1.1 H Seg Neutrophils % 84.8 H Seg Neuts % (Manual) Lymphocytes % (Manual) Seg Neutrophils # 10.9 H Seg Neutrophils # Man Lymphocytes # (Manual) POC ABG pH POC ABG pCO2 POC ABG pO2 Sodium Potassium Chloride Carbon Dioxide BUN Creatinine Glucose POC Glucose 133 H 129 H Lactic Acid Calcium Ionized Calcium Alkaline Phosphatase Lactate Dehydrogenase CK-MB (CK-2) Troponin T C-Reactive Protein Total Protein Albumin LDL Cholesterol Direct Fluid Total Protein Salicylates 07/12/17 07/12/17 07/12/17 04:37 05:39 11:41 WBC RBC Hgb Hct MCV MCHC RDW Plt Count Lymph % (Auto) [place] % (Auto) Lymph # [place] # Seg Neutrophils % Seg Neuts % (Manual) Lymphocytes % (Manual) Seg Neutrophils # Seg Neutrophils # Man Lymphocytes # (Manual) POC ABG pH POC ABG pCO2 POC ABG pO2 Sodium Potassium Chloride Carbon Dioxide BUN 29 H Creatinine 2.1 H Glucose 137 H POC Glucose 149 H 203 H Lactic Acid Calcium 8.0 L Ionized Calcium Alkaline Phosphatase Lactate Dehydrogenase CK-MB (CK-2) Troponin T C-Reactive Protein Total Protein Albumin LDL Cholesterol Direct Fluid Total Protein Salicylates Allied health notes reviewed: nursing
[2017-07-13 05:26] LABS: Calcium 7.5 mg/dL (8.4-10.2); Chloride 100.9 mmol/L (98-107)
[2017-07-13] MEDS: NOVOLOG SUB-Q SCH ×4 (06:37→17:56)
[2017-07-13] MEDS: FLAGYL PO SCH ×3 (07:02→22:52)
--- NOTE | 2017-07-13 08:33 | Event Note ---
Date: 07/13/17 no overall change from cardiac standpoint remains intubated/mech vent chest: decreased breath sounds cor: rrr abd soft ext: w/o edema pt is s/p cardo[pum arrest cr 2.8 h/h 7.02/10 Plan: continue present mgt. per pulm. no new card rec at this time. per pulm and nephrol
[2017-07-13] MEDS: DUONEB *Not for PRN Use IH SCH ×3 (09:17→23:29)
[2017-07-13] MEDS: FOLVITE PO SCH (10:12)
[2017-07-13] MEDS: PEPCID PO SCH (10:12)
[2017-07-13] MEDS: THERAGRAN-M Tab PO SCH (10:12)
[2017-07-13] MEDS: LEVEMIR SUB-Q SCH (10:13)
[2017-07-13] MEDS: COREG PO SCH ×2 (10:13→22:52)
[2017-07-13] MEDS: NORVASC PO SCH (10:13)
[2017-07-13] MEDS: FERROUS SULFATE PO SCH (10:13)
[2017-07-13] MEDS: HEPARIN SUB-Q SCH ×2 (10:13→22:53)
[2017-07-13] MEDS: ROCALTROL PO SCH (10:13)
[2017-07-13] MEDS: ASPIRIN PO SCH (10:13)
--- NOTE | 2017-07-13 10:58 | Progress Note ---
Subjective Principal diagnosis: Acute Hypoxemic Resp Failure; S/P Cardiac Arrest; Hyperosmolar Non-ketotic Interval history: Patient was seen today for follow-up, on many renal related issues he remains ventilator dependent and currently on hemodialysis mildly tachycardic blood pressure on the low side Interdisciplinary notes were reviewed dark loose watery stools Vitals labs intake and output medications were reviewed from today Allergies: Reviewed Social history: Reviewed Family history: Reviewed Physical examination HEENT: Oral mucosa moist no pharyngeal erythemaorally intubated Neck: Supple no JVD Chest: Clear to auscultation no crackles rales or wheezes Heart: Regular rate and rhythm S1-S2 heard no S3-S4 Abdomen: Soft nontender no renal bruit no CVA tenderness no suprapubic fullness Extremity: Mild edema dry skin no peripheral cyanosis pulses palpable Neurological:intubated and does not follow any commands Musculoskeletal: No joint effusion noted Assessment and plan End-stage renal disease: Patient is currently on maintenance hemodialysis Sunday and Sunday patient was also seen and supervised on hemodialysis currently tolerating treatment well other than mildly tachycardic for which I advised to give IV fluid 500 cc Anoxic brain injury post cardiac arrest patient also has seizure disorder daughter Still continues to have diarrhea with dark loose stools patient will benefit from one unit of packed blood cell transfusion please order Pending tracheotomy on Sunday Overall prognosis appears to be very poor in my opinion Monitor dialysis related labs supportive care Will continue to follow and make recommendation from renal standpoint Objective - Vital Signs Vital signs: Vital Signs - 12hr 07/12/17 07/12/17 07/12/17 23:00 23:15 23:28 Temperature Pulse Rate 94 H 93 H 94 H Pulse Rate [ Anterior Bilateral Throughout] Respiratory 12 17 Rate Respiratory Rate [Anterior Bilateral Throughout] Blood Pressure 121/62 121/62 121/62 O2 Sat by Pulse 100 100 100 Oximetry 07/12/17 07/12/17 07/12/17 23:31 23:41 23:45 Temperature Pulse Rate 95 H 93 H 92 H Pulse Rate [ 94 H Anterior Bilateral Throughout] Respiratory 16 13 13 Rate Respiratory 20 Rate [Anterior Bilateral Throughout] Blood Pressure 121/62 121/62 121/62 O2 Sat by Pulse 100 100 100 Oximetry 07/12/17 07/13/17 07/13/17 23:46 00:00 00:15 Temperature 98.1 F Pulse Rate 99 H 99 H Pulse Rate [ 96 H Anterior Bilateral Throughout] Respiratory 12 12 Rate Respiratory 20 Rate [Anterior Bilateral Throughout] Blood Pressure 122/69 122/69 O2 Sat by Pulse 100 100 Oximetry 07/13/17 07/13/17 07/13/17 00:31 00:45 01:00 Temperature Pulse Rate 96 H 95 H 97 H Pulse Rate [ Anterior Bilateral Throughout] Respiratory 12 13 14 Rate Respiratory Rate [Anterior Bilateral Throughout] Blood Pressure 122/69 122/69 126/66 O2 Sat by Pulse 100 100 100 Oximetry 07/13/17 07/13/17 07/13/17 01:15 01:31 01:45 Temperature Pulse Rate 96 H 92 H 91 H Pulse Rate [ Anterior Bilateral Throughout] Respiratory 13 12 12 Rate Respiratory Rate [Anterior Bilateral Throughout] Blood Pressure 126/66 126/66 126/66 O2 Sat by Pulse 100 100 100 Oximetry 07/13/17 07/13/17 07/13/17 02:00 02:15 02:30 Temperature Pulse Rate 94 H 93 H 89 Pulse Rate [ Anterior Bilateral Throughout] Respiratory 13 12 12 Rate Respiratory Rate [Anterior Bilateral Throughout] Blood Pressure 134/69 134/69 134/69 O2 Sat by Pulse 100 100 100 Oximetry 07/13/17 07/13/17 07/13/17 02:45 03:00 03:15 Temperature Pulse Rate 92 H 91 H 90 Pulse Rate [ Anterior Bilateral Throughout] Respiratory 12 12 12 Rate Respiratory Rate [Anterior Bilateral Throughout] Blood Pressure 134/69 123/63 123/63 O2 Sat by Pulse 100 100 100 Oximetry 07/13/17 07/13/17 07/13/17 03:31 03:45 04:00 Temperature 97.9 F Pulse Rate 88 87 87 Pulse Rate [ Anterior Bilateral Throughout] Respiratory 12 12 12 Rate Respiratory Rate [Anterior Bilateral Throughout] Blood Pressure 123/63 123/63 122/63 O2 Sat by Pulse 100 100 100 Oximetry 07/13/17 07/13/17 07/13/17 04:15 04:21 04:31 Temperature Pulse Rate 88 93 H 92 H Pulse Rate [ Anterior Bilateral Throughout] Respiratory 12 12 Rate Respiratory Rate [Anterior Bilateral Throughout] Blood Pressure 122/63 122/63 122/63 O2 Sat by Pulse 100 100 100 Oximetry 07/13/17 07/13/17 07/13/17 04:45 05:00 05:15 Temperature Pulse Rate 95 H 90 93 H Pulse Rate [ Anterior Bilateral Throughout] Respiratory 13 13 11 L Rate Respiratory Rate [Anterior Bilateral Throughout] Blood Pressure 122/63 130/69 122/63 O2 Sat by Pulse 100 100 100 Oximetry 07/13/17 07/13/17 07/13/17 05:31 05:45 06:01 Temperature Pulse Rate 97 H 99 H 99 H Pulse Rate [ Anterior Bilateral Throughout] Respiratory 13 11 L 12 Rate Respiratory Rate [Anterior Bilateral Throughout] Blood Pressure 122/63 122/63 147/72 O2 Sat by Pulse 100 100 100 Oximetry 07/13/17 07/13/17 07/13/17 06:15 06:31 06:45 Temperature Pulse Rate 94 H 93 H 91 H Pulse Rate [ Anterior Bilateral Throughout] Respiratory 13 11 L 12 Rate Respiratory Rate [Anterior Bilateral Throughout] Blood Pressure 147/72 147/72 147/72 O2 Sat by Pulse 100 100 100 Oximetry 07/13/17 07/13/17 07/13/17 07:00 07:15 07:31 Temperature Pulse Rate 91 H 90 91 H Pulse Rate [ Anterior Bilateral Throughout] Respiratory 12 12 13 Rate Respiratory Rate [Anterior Bilateral Throughout] Blood Pressure 145/79 145/79 145/79 O2 Sat by Pulse 100 100 100 Oximetry 07/13/17 07/13/17 07/13/17 07:45 07:58 08:00 Temperature 97.4 F L Pulse Rate 92 H Pulse Rate [ Anterior Bilateral Throughout] Respiratory 12 Rate Respiratory Rate [Anterior Bilateral Throughout] Blood Pressure 145/79 O2 Sat by Pulse 100 100 Oximetry 07/13/17 07/13/17 07/13/17 08:01 08:15 09:08 Temperature Pulse Rate 90 89 84 Pulse Rate [ 84 Anterior Bilateral Throughout] Respiratory 11 L 12 Rate Respiratory 12 Rate [Anterior Bilateral Throughout] Blood Pressure 151/77 151/77 155/68 O2 Sat by Pulse 100 100 100 Oximetry 07/13/17 07/13/17 07/13/17 09:29 10:00 10:15 Temperature 97.6 F Pulse Rate 91 H 90 94 H Pulse Rate [ 89 Anterior Bilateral Throughout] Respiratory 19 16 Rate Respiratory 21 Rate [Anterior Bilateral Throughout] Blood Pressure 155/68 141/74 141/72 O2 Sat by Pulse 100 Oximetry 07/13/17 07/13/17 07/13/17 10:30 10:41 10:50 Temperature Pulse Rate 94 H 92 H 99 H Pulse Rate [ Anterior Bilateral Throughout] Respiratory Rate Respiratory Rate [Anterior Bilateral Throughout] Blood Pressure 134/69 135/69 126/69 O2 Sat by Pulse Oximetry - Lab 07/12/17 04:37 07/13/17 04:46 Most recent lab results Calcium 7.5 mg/dL (8.4-10.2) L 07/13/17 04:46 Phosphorus 3.80 mg/dL (2.5-4.5) 07/04/17 14:10 Magnesium 1.80 mg/dL (1.7-2.3) 07/04/17 14:10
[2017-07-13] MEDS: HEPARIN IV PRN (13:12)
--- NOTE | 2017-07-13 15:13 | Progress Note ---
Assessment and Plan Acute Hypoxemic Respiratory Failure on MVS Seizure Disorder s/p Cardiac Arrest ESRD on Dialysis Sepsis Syndrome Hyperosmolar non ketotic state Anemia Leucocytosis Acute Encephalopathy Thrombocytopenia - pleural fluid studies back and fluid was transudative - AMS still a rate limiting factor to safe extubation - EEG re-ordered (pending still) - consult placed for tracheostomy placement - continue and complete antibiotics per ID recs - continue prn hydralazine and resumed home amlodipine dose (10mg qd) and coreg - keep set rate at 12/min - continue daily PSV trials as tolerated - continue aspiration precautions / addressing VAP bundle daily - continue to wean FiO2 for sats > 94% - continue enteral nutrition as tolerated - continue bronchodilators and pulmonary toilet - continue and adjust AB's per ID recs - continue glycemic control with SSI and levemir (target BG <180mg/dl) - continue GI & VTE prophylaxis - Continue to monitor platelet count while on heparin - continue other care per attending / other consultants - flu and pneumovax addressed per protocol ...the hope is that as sepsis resolves mental status will improve but that has not borne out so far ....33' CCT without overlap Subjective Date of service: 07/13/17 Principal diagnosis: Acute Hypoxemic Resp Failure; S/P Cardiac Arrest; Hyperosmolar Non-ketotic Interval history: Patient is seen today for: Acute Hypoxemic Resp Failure; S/P Cardiac Arrest; Hyperosmolar Non-ketotic Seen and examined at bedside; 24hour events reviewed; nursing and respiratory care staff consulted; no adverse overnight events reported to me; remains on MVS ; AMS is persistent; family informed of need for trach +/- PEG; no N/V/F/C; no gross bleeding Objective Vital Signs - 12hr 07/13/17 07/13/17 07/13/17 03:15 03:31 03:45 Temperature Pulse Rate 90 88 87 Pulse Rate [ Anterior Bilateral Throughout] Respiratory 12 12 12 Rate Respiratory Rate [Anterior Bilateral Throughout] Blood Pressure 123/63 123/63 123/63 O2 Sat by Pulse 100 100 100 Oximetry 07/13/17 07/13/17 07/13/17 04:00 04:15 04:21 Temperature 97.9 F Pulse Rate 87 88 93 H Pulse Rate [ Anterior Bilateral Throughout] Respiratory 12 12 Rate Respiratory Rate [Anterior Bilateral Throughout] Blood Pressure 122/63 122/63 122/63 O2 Sat by Pulse 100 100 100 Oximetry 07/13/17 07/13/17 07/13/17 04:31 04:45 05:00 Temperature Pulse Rate 92 H 95 H 90 Pulse Rate [ Anterior Bilateral Throughout] Respiratory 12 13 13 Rate Respiratory Rate [Anterior Bilateral Throughout] Blood Pressure 122/63 122/63 130/69 O2 Sat by Pulse 100 100 100 Oximetry 07/13/17 07/13/17 07/13/17 05:15 05:31 05:45 Temperature Pulse Rate 93 H 97 H 99 H Pulse Rate [ Anterior Bilateral Throughout] Respiratory 11 L 13 11 L Rate Respiratory Rate [Anterior Bilateral Throughout] Blood Pressure 122/63 122/63 122/63 O2 Sat by Pulse 100 100 100 Oximetry 07/13/17 07/13/17 07/13/17 06:01 06:15 06:31 Temperature Pulse Rate 99 H 94 H 93 H Pulse Rate [ Anterior Bilateral Throughout] Respiratory 12 13 11 L Rate Respiratory Rate [Anterior Bilateral Throughout] Blood Pressure 147/72 147/72 147/72 O2 Sat by Pulse 100 100 100 Oximetry 07/13/17 07/13/17 07/13/17 06:45 07:00 07:15 Temperature Pulse Rate 91 H 91 H 90 Pulse Rate [ Anterior Bilateral Throughout] Respiratory 12 12 12 Rate Respiratory Rate [Anterior Bilateral Throughout] Blood Pressure 147/72 145/79 145/79 O2 Sat by Pulse 100 100 100 Oximetry 07/13/17 07/13/17 07/13/17 07:31 07:45 07:58 Temperature 97.4 F L Pulse Rate 91 H 92 H Pulse Rate [ Anterior Bilateral Throughout] Respiratory 13 12 Rate Respiratory Rate [Anterior Bilateral Throughout] Blood Pressure 145/79 145/79 O2 Sat by Pulse 100 100 Oximetry 07/13/17 07/13/17 07/13/17 08:00 08:01 08:15 Temperature Pulse Rate 90 89 Pulse Rate [ Anterior Bilateral Throughout] Respiratory 11 L 12 Rate Respiratory Rate [Anterior Bilateral Throughout] Blood Pressure 151/77 151/77 O2 Sat by Pulse 100 100 100 Oximetry 07/13/17 07/13/17 07/13/17 08:31 08:45 09:00 Temperature Pulse Rate 84 84 86 Pulse Rate [ Anterior Bilateral Throughout] Respiratory 12 12 12 Rate Respiratory Rate [Anterior Bilateral Throughout] Blood Pressure 151/77 151/77 155/68 O2 Sat by Pulse 100 100 100 Oximetry 07/13/17 07/13/17 07/13/17 09:08 09:15 09:29 Temperature Pulse Rate 84 86 91 H Pulse Rate [ 84 89 Anterior Bilateral Throughout] Respiratory 13 19 Rate Respiratory 12 21 Rate [Anterior Bilateral Throughout] Blood Pressure 155/68 151/77 155/68 O2 Sat by Pulse 100 100 100 Oximetry 07/13/17 07/13/17 07/13/17 09:31 09:45 10:00 Temperature 97.6 F Pulse Rate 89 91 H 93 H Pulse Rate [ Anterior Bilateral Throughout] Respiratory 14 17 13 Rate Respiratory Rate [Anterior Bilateral Throughout] Blood Pressure 151/77 141/74 141/72 O2 Sat by Pulse 100 100 100 Oximetry 07/13/17 07/13/17 07/13/17 10:15 10:30 10:41 Temperature Pulse Rate 94 H 97 H 92 H Pulse Rate [ Anterior Bilateral Throughout] Respiratory 15 15 Rate Respiratory Rate [Anterior Bilateral Throughout] Blood Pressure 134/69 135/69 135/69 O2 Sat by Pulse 100 100 Oximetry 07/13/17 07/13/17 07/13/17 10:45 10:50 11:00 Temperature Pulse Rate 96 H 99 H 109 H Pulse Rate [ Anterior Bilateral Throughout] Respiratory 17 16 Rate Respiratory Rate [Anterior Bilateral Throughout] Blood Pressure 126/69 126/69 135/71 O2 Sat by Pulse 100 100 Oximetry 07/13/17 07/13/17 07/13/17 11:02 11:15 11:17 Temperature Pulse Rate 109 H 103 H 102 H Pulse Rate [ Anterior Bilateral Throughout] Respiratory 20 Rate Respiratory Rate [Anterior Bilateral Throughout] Blood Pressure 135/71 119/63 119/63 O2 Sat by Pulse 100 Oximetry 07/13/17 07/13/17 07/13/17 11:30 11:35 11:45 Temperature Pulse Rate 102 H 102 H 103 H Pulse Rate [ Anterior Bilateral Throughout] Respiratory 21 21 21 Rate Respiratory Rate [Anterior Bilateral Throughout] Blood Pressure 119/63 116/63 109/59 O2 Sat by Pulse 100 100 100 Oximetry 07/13/17 07/13/17 07/13/17 11:48 12:00 12:02 Temperature 98.2 F Pulse Rate 103 H 104 H 104 H Pulse Rate [ Anterior Bilateral Throughout] Respiratory 21 Rate Respiratory Rate [Anterior Bilateral Throughout] Blood Pressure 109/59 112/54 112/54 O2 Sat by Pulse 98 Oximetry 07/13/17 07/13/17 07/13/17 12:15 12:17 12:30 Temperature Pulse Rate 110 H 108 H 109 H Pulse Rate [ Anterior Bilateral Throughout] Respiratory 17 17 Rate Respiratory Rate [Anterior Bilateral Throughout] Blood Pressure 118/63 118/63 127/69 O2 Sat by Pulse 100 100 Oximetry 07/13/17 07/13/17 07/13/17 12:32 12:45 12:48 Temperature Pulse Rate 108 H 108 H 107 H Pulse Rate [ Anterior Bilateral Throughout] Respiratory 15 Rate Respiratory Rate [Anterior Bilateral Throughout] Blood Pressure 127/69 128/69 128/69 O2 Sat by Pulse 100 Oximetry 07/13/17 07/13/17 07/13/17 13:00 13:15 13:30 Temperature 98.2 F Pulse Rate 100 H 100 H 100 H Pulse Rate [ Anterior Bilateral Throughout] Respiratory 15 12 17 Rate Respiratory Rate [Anterior Bilateral Throughout] Blood Pressure 137/74 134/75 130/67 O2 Sat by Pulse 100 100 100 Oximetry Constitutional: no acute distress, other (encephalopathic) Eyes: non-icteric ENT: oropharynx moist, other (ETT at 25cm TIKI) Neck: supple, no lymphadenopathy, JVD, other (no thyromegally) Effort: mildly labored Ascultation: Bilateral: diminished breath sounds (bases), rales Percussion: Bilateral: not dull Cardiovascular: regular rate and rhythm, other (no rubs / murmurs) Gastrointestinal: normoactive bowel sounds, soft, non-tender, non-distended, other (no HSM) Integumentary: normal Extremities: no cyanosis, no edema, pulses normal, no ischemia or petechiae Neurologic: pupils equal and round, unable to assess, other (no spontaneous limb movements) Psychiatric: other (unable to assess) CBC and BMP: 07/16/17 08:32 07/15/17 12:52 ABG, PT/INR, D-dimer: ABG POC ABG pH 7.448 (7.35-7.45) 07/10/17 14:14 POC ABG pCO2 39.1 (35-45) 07/10/17 14:14 POC ABG pO2 138 (80-105) H 07/10/17 14:14 POC ABG HCO3 27.0 07/10/17 14:14 POC ABG Total CO2 28 07/10/17 14:14 POC ABG O2 Sat 99 07/10/17 14:14 PT/INR, D-dimer PT 12.9 Sec. (12.2-14.9) 07/06/17 08:30 INR 0.93 (0.87-1.13) 07/06/17 08:30 Abnormal lab findings: Abnormal Labs 07/02/17 07/02/17 07/02/17 15:03 15:12 17:49 WBC 13.5 H RBC 3.47 L Hgb 9.9 L Hct 33.1 L MCV 96 H MCHC 30 L RDW 15.4 H Plt Count 130 L Lymph % (Auto) [place] % (Auto) Lymph # [place] # Seg Neutrophils % Seg Neuts % (Manual) 95.0 H Lymphocytes % (Manual) 3.0 L Seg Neutrophils # Seg Neutrophils # Man 12.8 H Lymphocytes # (Manual) 0.4 L POC ABG pH POC ABG pCO2 POC ABG pO2 Sodium Potassium Chloride Carbon Dioxide BUN Creatinine Glucose POC Glucose > 500 H Lactic Acid 7.80 H* Calcium Ionized Calcium Alkaline Phosphatase Lactate Dehydrogenase CK-MB (CK-2) Troponin T C-Reactive Protein Total Protein Albumin LDL Cholesterol Direct Fluid Total Protein Salicylates 07/02/17 07/02/17 07/02/17 20:29 21:31 23:38 WBC RBC Hgb Hct MCV MCHC RDW Plt Count Lymph % (Auto) [place] % (Auto) Lymph # [place] # Seg Neutrophils % Seg Neuts % (Manual) Lymphocytes % (Manual) Seg Neutrophils # Seg Neutrophils # Man Lymphocytes # (Manual) POC ABG pH POC ABG pCO2 POC ABG pO2 Sodium 129 L 132 L Potassium Chloride 87.2 L 93.7 L Carbon Dioxide 18 L 15 L BUN 51 H 47 H Creatinine 4.3 H 4.1 H Glucose 950 H* 825 H* POC Glucose Lactic Acid 5.70 H* Calcium 7.1 L 6.8 L Ionized Calcium Alkaline Phosphatase Lactate Dehydrogenase CK-MB (CK-2) Troponin T C-Reactive Protein Total Protein Albumin LDL Cholesterol Direct Fluid Total Protein Salicylates 07/02/17 07/02/17 07/02/17 23:38 23:44 Unknown WBC RBC Hgb Hct MCV MCHC RDW Plt Count Lymph % (Auto) [place] % (Auto) Lymph # [place] # Seg Neutrophils % Seg Neuts % (Manual) Lymphocytes % (Manual) Seg Neutrophils # Seg Neutrophils # Man Lymphocytes # (Manual) POC ABG pH POC ABG pCO2 POC ABG pO2 Sodium 132 L 125 L D Potassium Chloride 94.6 L 85.6 L Carbon Dioxide 17 L 19 L D BUN 51 H 50 H Creatinine 4.1 H 4.4 H D Glucose 772 H* 1113 H* POC Glucose > 500 H Lactic Acid Calcium 6.7 L 7.2 L Ionized Calcium Alkaline Phosphatase 139 H Lactate Dehydrogenase CK-MB (CK-2) Troponin T C-Reactive Protein Total Protein 6.1 L Albumin 3.3 L LDL Cholesterol Direct Fluid Total Protein Salicylates 07/02/17 07/02/17 07/03/17 Unknown Unknown 01:00 WBC RBC Hgb Hct MCV MCHC RDW Plt Count Lymph % (Auto) [place] % (Auto) Lymph # [place] # Seg Neutrophils % Seg Neuts % (Manual) Lymphocytes % (Manual) Seg Neutrophils # Seg Neutrophils # Man Lymphocytes # (Manual) POC ABG pH POC ABG pCO2 POC ABG pO2 Sodium 134 L Potassium Chloride 96.4 L Carbon Dioxide 19 L BUN 50 H Creatinine 4.0 H Glucose 677 H* POC Glucose Lactic Acid 6.30 H* Calcium 6.6 L Ionized Calcium Alkaline Phosphatase Lactate Dehydrogenase CK-MB (CK-2) Troponin T C-Reactive Protein Total Protein Albumin LDL Cholesterol Direct Fluid Total Protein Salicylates < 0.3 L 07/03/17 07/03/17 07/03/17 01:04 02:15 02:15 WBC RBC Hgb Hct MCV MCHC RDW Plt Count Lymph % (Auto) [place] % (Auto) Lymph # [place] # Seg Neutrophils % Seg Neuts % (Manual) Lymphocytes % (Manual) Seg Neutrophils # Seg Neutrophils # Man Lymphocytes # (Manual) POC ABG pH POC ABG pCO2 POC ABG pO2 Sodium 134 L Potassium Chloride 97.6 L Carbon Dioxide 19 L BUN 50 H Creatinine 4.2 H Glucose 592 H* POC Glucose > 500 H Lactic Acid 4.30 H* Calcium 6.6 L Ionized Calcium Alkaline Phosphatase Lactate Dehydrogenase CK-MB (CK-2) Troponin T C-Reactive Protein Total Protein Albumin LDL Cholesterol Direct Fluid Total Protein Salicylates 07/03/17 07/03/17 07/03/17 02:21 03:25 04:10 WBC RBC Hgb Hct MCV MCHC RDW Plt Count Lymph % (Auto) [place] % (Auto) Lymph # [place] # Seg Neutrophils % Seg Neuts % (Manual) Lymphocytes % (Manual) Seg Neutrophils # Seg Neutrophils # Man Lymphocytes # (Manual) POC ABG pH POC ABG pCO2 POC ABG pO2 Sodium Potassium Chloride Carbon Dioxide 19 L BUN 50 H Creatinine 4.0 H Glucose 416 H POC Glucose 482 H > 500 H Lactic Acid Calcium 6.8 L Ionized Calcium Alkaline Phosphatase Lactate Dehydrogenase CK-MB (CK-2) Troponin T C-Reactive Protein Total Protein Albumin LDL Cholesterol Direct Fluid Total Protein Salicylates 07/03/17 07/03/17 07/03/17 04:30 04:36 05:33 WBC RBC Hgb Hct MCV MCHC RDW Plt Count Lymph % (Auto) [place] % (Auto) Lymph # [place] # Seg Neutrophils % Seg Neuts % (Manual) Lymphocytes % (Manual) Seg Neutrophils # Seg Neutrophils # Man Lymphocytes # (Manual) POC ABG pH 7.311 L POC ABG pCO2 33.5 L POC ABG pO2 73 L Sodium Potassium Chloride Carbon Dioxide BUN Creatinine Glucose POC Glucose 389 H 326 H Lactic Acid Calcium Ionized Calcium Alkaline Phosphatase Lactate Dehydrogenase CK-MB (CK-2) Troponin T C-Reactive Protein Total Protein Albumin LDL Cholesterol Direct Fluid Total Protein Salicylates 07/03/17 07/03/17 07/03/17 06:06 07:38 09:58 WBC RBC Hgb Hct MCV MCHC RDW Plt Count Lymph % (Auto) [place] % (Auto) Lymph # [place] # Seg Neutrophils % Seg Neuts % (Manual) Lymphocytes % (Manual) Seg Neutrophils # Seg Neutrophils # Man Lymphocytes # (Manual) POC ABG pH POC ABG pCO2 POC ABG pO2 Sodium Potassium Chloride Carbon Dioxide BUN Creatinine Glucose POC Glucose 247 H 118 H 52 L Lactic Acid Calcium Ionized Calcium Alkaline Phosphatase Lactate Dehydrogenase CK-MB (CK-2) Troponin T C-Reactive Protein Total Protein Albumin LDL Cholesterol Direct Fluid Total Protein Salicylates 07/03/17 07/03/17 07/03/17 11:00 13:16 15:02 WBC RBC Hgb Hct MCV MCHC RDW Plt Count Lymph % (Auto) [place] % (Auto) Lymph # [place] # Seg Neutrophils % Seg Neuts % (Manual) Lymphocytes % (Manual) Seg Neutrophils # Seg Neutrophils # Man Lymphocytes # (Manual) POC ABG pH POC ABG pCO2 POC ABG pO2 Sodium Potassium Chloride Carbon Dioxide BUN Creatinine Glucose POC Glucose 64 L 112 H 158 H Lactic Acid Calcium Ionized Calcium Alkaline Phosphatase Lactate Dehydrogenase CK-MB (CK-2) Troponin T C-Reactive Protein Total Protein Albumin LDL Cholesterol Direct Fluid Total Protein Salicylates 07/03/17 07/03/17 07/03/17 18:17 Unknown Unknown WBC RBC Hgb Hct MCV MCHC RDW Plt Count Lymph % (Auto) [place] % (Auto) Lymph # [place] # Seg Neutrophils % Seg Neuts % (Manual) Lymphocytes % (Manual) Seg Neutrophils # Seg Neutrophils # Man Lymphocytes # (Manual) POC ABG pH POC ABG pCO2 POC ABG pO2 Sodium Potassium Chloride Carbon Dioxide BUN Creatinine Glucose POC Glucose 131 H Lactic Acid 2.40 H* Calcium Ionized Calcium Alkaline Phosphatase Lactate Dehydrogenase CK-MB (CK-2) Troponin T C-Reactive Protein 1.90 H Total Protein Albumin LDL Cholesterol Direct Fluid Total Protein Salicylates 07/03/17 07/04/17 07/04/17 Unknown 00:13 02:04 WBC RBC Hgb Hct MCV MCHC RDW Plt Count Lymph % (Auto) [place] % (Auto) Lymph # [place] # Seg Neutrophils % Seg Neuts % (Manual) Lymphocytes % (Manual) Seg Neutrophils # Seg Neutrophils # Man Lymphocytes # (Manual) POC ABG pH POC ABG pCO2 POC ABG pO2 Sodium Potassium Chloride Carbon Dioxide BUN 52 H Creatinine 4.3 H Glucose POC Glucose 69 L 111 H Lactic Acid Calcium 7.2 L Ionized Calcium Alkaline Phosphatase Lactate Dehydrogenase CK-MB (CK-2) Troponin T C-Reactive Protein Total Protein Albumin LDL Cholesterol Direct Fluid Total Protein Salicylates 07/04/17 07/04/17 07/04/17 04:38 08:00 08:00 WBC 28.3 H RBC 3.55 L Hgb 10.3 L Hct 31.2 L MCV MCHC RDW 15.3 H Plt Count 101 L Lymph % (Auto) [place] % (Auto) Lymph # [place] # Seg Neutrophils % Seg Neuts % (Manual) Lymphocytes % (Manual) Seg Neutrophils # Seg Neutrophils # Man Lymphocytes # (Manual) POC ABG pH POC ABG pCO2 27.6 L POC ABG pO2 Sodium Potassium Chloride Carbon Dioxide 20 L BUN 62 H Creatinine 4.7 H Glucose POC Glucose Lactic Acid Calcium 7.0 L Ionized Calcium Alkaline Phosphatase Lactate Dehydrogenase CK-MB (CK-2) Troponin T C-Reactive Protein Total Protein Albumin LDL Cholesterol Direct Fluid Total Protein Salicylates 07/04/17 07/04/17 07/04/17 14:10 14:10 14:33 WBC RBC Hgb Hct MCV MCHC RDW Plt Count Lymph % (Auto) [place] % (Auto) Lymph # [place] # Seg Neutrophils % Seg Neuts % (Manual) Lymphocytes % (Manual) Seg Neutrophils # Seg Neutrophils # Man Lymphocytes # (Manual) POC ABG pH 7.474 H POC ABG pCO2 29.4 L POC ABG pO2 Sodium Potassium Chloride Carbon Dioxide BUN Creatinine Glucose POC Glucose Lactic Acid Calcium Ionized Calcium 4.6 L Alkaline Phosphatase Lactate Dehydrogenase CK-MB (CK-2) 4.3 H Troponin T 0.282 H* C-Reactive Protein Total Protein Albumin LDL Cholesterol Direct 22 L Fluid Total Protein Salicylates 07/04/17 07/04/17 07/04/17 17:26 20:40 23:34 WBC RBC Hgb Hct MCV MCHC RDW Plt Count Lymph % (Auto) [place] % (Auto) Lymph # [place] # Seg Neutrophils % Seg Neuts % (Manual) Lymphocytes % (Manual) Seg Neutrophils # Seg Neutrophils # Man Lymphocytes # (Manual) POC ABG pH POC ABG pCO2 POC ABG pO2 Sodium Potassium Chloride Carbon Dioxide BUN Creatinine Glucose POC Glucose 201 H 188 H Lactic Acid Calcium Ionized Calcium Alkaline Phosphatase Lactate Dehydrogenase CK-MB (CK-2) Troponin T 0.276 H* C-Reactive Protein Total Protein Albumin LDL Cholesterol Direct Fluid Total Protein Salicylates 07/05/17 07/05/17 07/05/17 05:42 07:50 11:52 WBC RBC Hgb Hct MCV MCHC RDW Plt Count Lymph % (Auto) [place] % (Auto) Lymph # [place] # Seg Neutrophils % Seg Neuts % (Manual) Lymphocytes % (Manual) Seg Neutrophils # Seg Neutrophils # Man Lymphocytes # (Manual) POC ABG pH POC ABG pCO2 POC ABG pO2 117 H Sodium Potassium Chloride Carbon Dioxide BUN Creatinine Glucose POC Glucose 126 H 110 H Lactic Acid Calcium Ionized Calcium Alkaline Phosphatase Lactate Dehydrogenase CK-MB (CK-2) Troponin T C-Reactive Protein Total Protein Albumin LDL Cholesterol Direct Fluid Total Protein Salicylates 07/05/17 07/05/17 07/05/17 12:40 17:51 18:12 WBC RBC Hgb Hct MCV MCHC RDW Plt Count Lymph % (Auto) [place] % (Auto) Lymph # [place] # Seg Neutrophils % Seg Neuts % (Manual) Lymphocytes % (Manual) Seg Neutrophils # Seg Neutrophils # Man Lymphocytes # (Manual) POC ABG pH POC ABG pCO2 POC ABG pO2 Sodium Potassium Chloride Carbon Dioxide BUN Creatinine Glucose POC Glucose 57 L 69 L Lactic Acid Calcium Ionized Calcium Alkaline Phosphatase Lactate Dehydrogenase CK-MB (CK-2) Troponin T 0.277 H* C-Reactive Protein Total Protein Albumin LDL Cholesterol Direct Fluid Total Protein Salicylates 07/05/17 07/05/17 07/05/17 Unknown Unknown Unknown WBC 22.2 H RBC 3.24 L Hgb 9.7 L Hct 28.6 L MCV MCHC RDW Plt Count 89 L Lymph % (Auto) [place] % (Auto) Lymph # [place] # Seg Neutrophils % Seg Neuts % (Manual) 89.0 H Lymphocytes % (Manual) 7.0 L Seg Neutrophils # Seg Neutrophils # Man 19.8 H Lymphocytes # (Manual) POC ABG pH POC ABG pCO2 POC ABG pO2 Sodium Potassium 3.5 L Chloride Carbon Dioxide BUN 37 H Creatinine 3.1 H Glucose 120 H POC Glucose Lactic Acid 2.30 H* Calcium 7.7 L Ionized Calcium Alkaline Phosphatase Lactate Dehydrogenase CK-MB (CK-2) Troponin T C-Reactive Protein Total Protein Albumin LDL Cholesterol Direct Fluid Total Protein Salicylates 07/05/17 07/06/17 07/06/17 Unknown 03:25 03:25 WBC 17.7 H RBC 3.14 L Hgb 9.3 L Hct 27.8 L MCV MCHC RDW 15.7 H Plt Count 82 L Lymph % (Auto) 2.5 L [place] % (Auto) Lymph # 0.4 L [place] # 1.1 H Seg Neutrophils % 90.0 H Seg Neuts % (Manual) Lymphocytes % (Manual) Seg Neutrophils # 15.9 H Seg Neutrophils # Man Lymphocytes # (Manual) POC ABG pH POC ABG pCO2 POC ABG pO2 Sodium Potassium 3.3 L Chloride Carbon Dioxide BUN 44 H Creatinine 3.6 H Glucose 132 H POC Glucose Lactic Acid Calcium 7.4 L Ionized Calcium Alkaline Phosphatase Lactate Dehydrogenase CK-MB (CK-2) Troponin T C-Reactive Protein 9.90 H Total Protein Albumin LDL Cholesterol Direct Fluid Total Protein Salicylates 07/06/17 07/06/17 07/06/17 04:19 05:24 08:30 WBC RBC Hgb Hct MCV MCHC RDW Plt Count Lymph % (Auto) [place] % (Auto) Lymph # [place] # Seg Neutrophils % Seg Neuts % (Manual) Lymphocytes % (Manual) Seg Neutrophils # Seg Neutrophils # Man Lymphocytes # (Manual) POC ABG pH POC ABG pCO2 34.3 L POC ABG pO2 Sodium Potassium Chloride Carbon Dioxide BUN Creatinine Glucose POC Glucose 174 H Lactic Acid Calcium Ionized Calcium Alkaline Phosphatase Lactate Dehydrogenase 880 H CK-MB (CK-2) Troponin T C-Reactive Protein Total Protein 4.9 L Albumin LDL Cholesterol Direct Fluid Total Protein Salicylates 07/06/17 07/06/17 07/06/17 11:13 17:14 23:38 WBC RBC Hgb Hct MCV MCHC RDW Plt Count Lymph % (Auto) [place] % (Auto) Lymph # [place] # Seg Neutrophils % Seg Neuts % (Manual) Lymphocytes % (Manual) Seg Neutrophils # Seg Neutrophils # Man Lymphocytes # (Manual) POC ABG pH POC ABG pCO2 POC ABG pO2 Sodium Potassium Chloride Carbon Dioxide BUN Creatinine Glucose POC Glucose 216 H 211 H 122 H Lactic Acid Calcium Ionized Calcium Alkaline Phosphatase Lactate Dehydrogenase CK-MB (CK-2) Troponin T C-Reactive Protein Total Protein Albumin LDL Cholesterol Direct Fluid Total Protein Salicylates 07/06/17 07/07/17 07/07/17 Unknown 04:38 05:00 WBC 16.1 H RBC 3.00 L Hgb 8.9 L Hct 26.6 L MCV MCHC RDW 15.6 H Plt Count 106 L Lymph % (Auto) 4.1 L [place] % (Auto) 8.0 H Lymph # 0.7 L [place] # 1.3 H Seg Neutrophils % 86.6 H Seg Neuts % (Manual) Lymphocytes % (Manual) Seg Neutrophils # 13.9 H Seg Neutrophils # Man Lymphocytes # (Manual) POC ABG pH 7.455 H POC ABG pCO2 POC ABG pO2 134 H Sodium Potassium Chloride Carbon Dioxide BUN Creatinine Glucose POC Glucose Lactic Acid Calcium Ionized Calcium Alkaline Phosphatase Lactate Dehydrogenase CK-MB (CK-2) Troponin T C-Reactive Protein Total Protein Albumin LDL Cholesterol Direct Fluid Total Protein < 3.0 L Salicylates 07/07/17 07/07/17 07/07/17 05:00 05:17 11:33 WBC RBC Hgb Hct MCV MCHC RDW Plt Count Lymph % (Auto) [place] % (Auto) Lymph # [place] # Seg Neutrophils % Seg Neuts % (Manual) Lymphocytes % (Manual) Seg Neutrophils # Seg Neutrophils # Man Lymphocytes # (Manual) POC ABG pH POC ABG pCO2 POC ABG pO2 Sodium Potassium Chloride Carbon Dioxide BUN 30 H Creatinine 2.8 H Glucose 188 H POC Glucose 189 H 275 H Lactic Acid Calcium 7.9 L Ionized Calcium Alkaline Phosphatase Lactate Dehydrogenase CK-MB (CK-2) Troponin T C-Reactive Protein Total Protein Albumin LDL Cholesterol Direct Fluid Total Protein Salicylates 07/07/17 07/07/17 07/07/17 16:04 17:08 23:45 WBC RBC Hgb Hct MCV MCHC RDW Plt Count Lymph % (Auto) [place] % (Auto) Lymph # [place] # Seg Neutrophils % Seg Neuts % (Manual) Lymphocytes % (Manual) Seg Neutrophils # Seg Neutrophils # Man Lymphocytes # (Manual) POC ABG pH POC ABG pCO2 POC ABG pO2 126 H Sodium Potassium Chloride Carbon Dioxide BUN Creatinine Glucose POC Glucose 241 H 118 H Lactic Acid Calcium Ionized Calcium Alkaline Phosphatase Lactate Dehydrogenase CK-MB (CK-2) Troponin T C-Reactive Protein Total Protein Albumin LDL Cholesterol Direct Fluid Total Protein Salicylates 07/08/17 07/08/17 07/08/17 05:30 05:54 06:12 WBC 17.0 H RBC 3.27 L Hgb 9.5 L Hct 29.1 L MCV MCHC RDW 15.6 H Plt Count 133 L Lymph % (Auto) 4.6 L [place] % (Auto) 9.2 H Lymph # 0.8 L [place] # 1.6 H Seg Neutrophils % 83.9 H Seg Neuts % (Manual) Lymphocytes % (Manual) Seg Neutrophils # 14.3 H Seg Neutrophils # Man Lymphocytes # (Manual) POC ABG pH 7.477 H POC ABG pCO2 POC ABG pO2 118 H Sodium Potassium Chloride Carbon Dioxide BUN Creatinine Glucose POC Glucose 199 H Lactic Acid Calcium Ionized Calcium Alkaline Phosphatase Lactate Dehydrogenase CK-MB (CK-2) Troponin T C-Reactive Protein Total Protein Albumin LDL Cholesterol Direct Fluid Total Protein Salicylates 07/08/17 07/08/17 07/08/17 06:12 11:37 17:21 WBC RBC Hgb Hct MCV MCHC RDW Plt Count Lymph % (Auto) [place] % (Auto) Lymph # [place] # Seg Neutrophils % Seg Neuts % (Manual) Lymphocytes % (Manual) Seg Neutrophils # Seg Neutrophils # Man Lymphocytes # (Manual) POC ABG pH POC ABG pCO2 POC ABG pO2 Sodium Potassium Chloride Carbon Dioxide BUN 44 H Creatinine 3.4 H Glucose 190 H POC Glucose 236 H 186 H Lactic Acid Calcium 7.8 L Ionized Calcium Alkaline Phosphatase Lactate Dehydrogenase CK-MB (CK-2) Troponin T C-Reactive Protein Total Protein Albumin LDL Cholesterol Direct Fluid Total Protein Salicylates 07/08/17 07/09/17 07/09/17 23:09 04:27 05:02 WBC 17.8 H RBC 2.88 L Hgb 8.5 L Hct 25.6 L MCV MCHC RDW 15.5 H Plt Count Lymph % (Auto) 4.6 L [place] % (Auto) 10.2 H Lymph # 0.8 L [place] # 1.8 H Seg Neutrophils % 83.4 H Seg Neuts % (Manual) Lymphocytes % (Manual) Seg Neutrophils # 14.8 H Seg Neutrophils # Man Lymphocytes # (Manual) POC ABG pH POC ABG pCO2 POC ABG pO2 132 H Sodium Potassium Chloride Carbon Dioxide BUN Creatinine Glucose POC Glucose 203 H Lactic Acid Calcium Ionized Calcium Alkaline Phosphatase Lactate Dehydrogenase CK-MB (CK-2) Troponin T C-Reactive Protein Total Protein Albumin LDL Cholesterol Direct Fluid Total Protein Salicylates 07/09/17 07/09/17 07/09/17 05:02 05:33 12:07 WBC RBC Hgb Hct MCV MCHC RDW Plt Count Lymph % (Auto) [place] % (Auto) Lymph # [place] # Seg Neutrophils % Seg Neuts % (Manual) Lymphocytes % (Manual) Seg Neutrophils # Seg Neutrophils # Man Lymphocytes # (Manual) POC ABG pH POC ABG pCO2 POC ABG pO2 Sodium Potassium Chloride Carbon Dioxide BUN 61 H Creatinine 4.0 H Glucose 183 H POC Glucose 177 H 276 H Lactic Acid Calcium 7.6 L Ionized Calcium Alkaline Phosphatase Lactate Dehydrogenase CK-MB (CK-2) Troponin T C-Reactive Protein Total Protein Albumin LDL Cholesterol Direct Fluid Total Protein Salicylates 07/09/17 07/10/17 07/10/17 18:54 03:50 03:50 WBC 16.8 H RBC 2.77 L Hgb 8.1 L Hct 24.9 L MCV MCHC RDW 15.7 H Plt Count Lymph % (Auto) 4.3 L [place] % (Auto) 10.8 H Lymph # 0.7 L [place] # 1.8 H Seg Neutrophils % 83.5 H Seg Neuts % (Manual) Lymphocytes % (Manual) Seg Neutrophils # 14.1 H Seg Neutrophils # Man Lymphocytes # (Manual) POC ABG pH POC ABG pCO2 POC ABG pO2 Sodium Potassium Chloride Carbon Dioxide BUN 31 H Creatinine 2.5 H Glucose 129 H POC Glucose 178 H Lactic Acid Calcium 8.1 L Ionized Calcium Alkaline Phosphatase Lactate Dehydrogenase CK-MB (CK-2) Troponin T C-Reactive Protein Total Protein Albumin LDL Cholesterol Direct Fluid Total Protein Salicylates 07/10/17 07/10/17 07/10/17 05:41 10:02 10:07 WBC 16.3 H RBC 2.66 L Hgb 7.9 L Hct 23.5 L MCV MCHC RDW 16.1 H Plt Count Lymph % (Auto) 4.8 L [place] % (Auto) 9.6 H Lymph # 0.8 L [place] # 1.6 H Seg Neutrophils % 84.0 H Seg Neuts % (Manual) Lymphocytes % (Manual) Seg Neutrophils # 13.7 H Seg Neutrophils # Man Lymphocytes # (Manual) POC ABG pH POC ABG pCO2 POC ABG pO2 Sodium Potassium Chloride Carbon Dioxide BUN 35 H Creatinine 2.6 H Glucose 196 H POC Glucose 160 H Lactic Acid Calcium 7.9 L Ionized Calcium Alkaline Phosphatase Lactate Dehydrogenase CK-MB (CK-2) Troponin T C-Reactive Protein Total Protein Albumin LDL Cholesterol Direct Fluid Total Protein Salicylates 07/10/17 07/10/17 07/10/17 11:21 14:14 16:36 WBC RBC Hgb Hct MCV MCHC RDW Plt Count Lymph % (Auto) [place] % (Auto) Lymph # [place] # Seg Neutrophils % Seg Neuts % (Manual) Lymphocytes % (Manual) Seg Neutrophils # Seg Neutrophils # Man Lymphocytes # (Manual) POC ABG pH POC ABG pCO2 POC ABG pO2 138 H Sodium Potassium Chloride Carbon Dioxide BUN Creatinine Glucose POC Glucose 206 H 133 H Lactic Acid Calcium Ionized Calcium Alkaline Phosphatase Lactate Dehydrogenase CK-MB (CK-2) Troponin T C-Reactive Protein Total Protein Albumin LDL Cholesterol Direct Fluid Total Protein Salicylates 07/11/17 07/11/17 07/11/17 04:08 08:19 13:58 WBC RBC Hgb Hct MCV MCHC RDW Plt Count Lymph % (Auto) [place] % (Auto) Lymph # [place] # Seg Neutrophils % Seg Neuts % (Manual) Lymphocytes % (Manual) Seg Neutrophils # Seg Neutrophils # Man Lymphocytes # (Manual) POC ABG pH POC ABG pCO2 POC ABG pO2 Sodium Potassium Chloride Carbon Dioxide BUN 45 H Creatinine 3.1 H Glucose POC Glucose 155 H 199 H Lactic Acid Calcium 7.8 L Ionized Calcium Alkaline Phosphatase Lactate Dehydrogenase CK-MB (CK-2) Troponin T C-Reactive Protein Total Protein Albumin LDL Cholesterol Direct Fluid Total Protein Salicylates 07/11/17 07/11/17 07/12/17 17:52 23:39 04:37 WBC 12.9 H RBC 2.62 L Hgb 7.6 L Hct 24.0 L MCV MCHC RDW 16.0 H Plt Count Lymph % (Auto) 4.8 L [place] % (Auto) 8.6 H Lymph # 0.6 L [place] # 1.1 H Seg Neutrophils % 84.8 H Seg Neuts % (Manual) Lymphocytes % (Manual) Seg Neutrophils # 10.9 H Seg Neutrophils # Man Lymphocytes # (Manual) POC ABG pH POC ABG pCO2 POC ABG pO2 Sodium Potassium Chloride Carbon Dioxide BUN Creatinine Glucose POC Glucose 133 H 129 H Lactic Acid Calcium Ionized Calcium Alkaline Phosphatase Lactate Dehydrogenase CK-MB (CK-2) Troponin T C-Reactive Protein Total Protein Albumin LDL Cholesterol Direct Fluid Total Protein Salicylates 07/12/17 07/12/17 07/12/17 04:37 05:39 11:41 WBC RBC Hgb Hct MCV MCHC RDW Plt Count Lymph % (Auto) [place] % (Auto) Lymph # [place] # Seg Neutrophils % Seg Neuts % (Manual) Lymphocytes % (Manual) Seg Neutrophils # Seg Neutrophils # Man Lymphocytes # (Manual) POC ABG pH POC ABG pCO2 POC ABG pO2 Sodium Potassium Chloride Carbon Dioxide BUN 29 H Creatinine 2.1 H Glucose 137 H POC Glucose 149 H 203 H Lactic Acid Calcium 8.0 L Ionized Calcium Alkaline Phosphatase Lactate Dehydrogenase CK-MB (CK-2) Troponin T C-Reactive Protein Total Protein Albumin LDL Cholesterol Direct Fluid Total Protein Salicylates 07/13/17 07/13/17 07/13/17 04:46 05:35 12:14 WBC RBC Hgb Hct MCV MCHC RDW Plt Count Lymph % (Auto) [place] % (Auto) Lymph # [place] # Seg Neutrophils % Seg Neuts % (Manual) Lymphocytes % (Manual) Seg Neutrophils # Seg Neutrophils # Man Lymphocytes # (Manual) POC ABG pH POC ABG pCO2 POC ABG pO2 Sodium Potassium Chloride Carbon Dioxide BUN 46 H Creatinine 2.8 H Glucose 128 H POC Glucose 139 H 243 H Lactic Acid Calcium 7.5 L Ionized Calcium Alkaline Phosphatase Lactate Dehydrogenase CK-MB (CK-2) Troponin T C-Reactive Protein Total Protein Albumin LDL Cholesterol Direct Fluid Total Protein Salicylates Allied health notes reviewed: nursing
--- NOTE | 2017-07-13 16:14 | Progress Note ---
Assessment and Plan Assessment and plan: Anoxic brain injury Status post cardiac arrest Seizure disorder Sepsis with hypotension History of diarrhea DKA with diabetic coma ESRD on HD - Patient is intubated and on mechanical ventilation, off sedation - Finished antibiotics - ESRD on HD - Patient was treated according to DKA protocol now resolved and on long-acting insulin DVT prophylaxis - Heparin Disposition - Patient would have trach on Sunday - Continue ICU care The high probability of a clinically significant, sudden or life threatening deterioration of the [CV, neurology, renal] system(s) required my full and direct attention, intervention and personal management. The aggregate critical care time was [32] minutes. This time is in addition to time spent performing reported procedures but includes the following: [x] Data Review and interpretation [x] Patient assessment and monitoring of vital signs [x] Documentation [x] Medication orders and management History Interval history: Patient was seen and evaluated this morning, patient in non communicative. Patient is off sedation. Hospitalist Physical - Physical exam Narrative exam: Patient is intubated and on mechanical ventilation. The patient appeared well nourished and normally developed. Vital signs as documented. Head exam is unremarkable. No scleral icterus . Neck is without jugular venous distension, thyromegaly, or carotid bruits. Lungs are clear to auscultation. Cardiac exam reveals regular rate and Rhythm. First and second heart sounds normal. No murmurs, rubs or gallops. Abdominal exam reveals normal bowel sounds, no masses, no organomegaly and no aortic enlargement. Extremities are nonedematous and both femoral and pedal pulses are normal. 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 He is off sedation. - Constitutional Vitals: Temp Pulse Resp BP Pulse Ox 98.5 F 105 H 22 140/70 100 07/13/17 16:00 07/13/17 15:53 07/13/17 15:53 07/13/17 15:53 07/13/17 15:53 General appearance: Present: mild distress, other (intubated, unresponsive) Results - Labs CBC & Chem 7: 07/12/17 04:37 07/13/17 04:46 Labs: Laboratory Last Values WBC 12.9 K/mm3 (4.5-11.0) H 07/12/17 04:37 RBC 2.62 M/mm3 (3.65-5.03) L 07/12/17 04:37 Hgb 7.6 gm/dl (11.8-15.2) L 07/12/17 04:37 Hct 24.0 % (35.5-45.6) L 07/12/17 04:37 MCV 92 fl (84-94) 07/12/17 04:37 MCH 29 pg (28-32) 07/12/17 04:37 MCHC 32 % (32-34) 07/12/17 04:37 RDW 16.0 % (13.2-15.2) H 07/12/17 04:37 Plt Count 204 K/mm3 (140-440) 07/12/17 04:37 Lymph % (Auto) 4.8 % (13.4-35.0) L 07/12/17 04:37 [place] % (Auto) 8.6 % (0.0-7.3) H 07/12/17 04:37 E[place] % (Auto) 1.5 % (0.0-4.3) 07/12/17 04:37 Baso % (Auto) 0.3 % (0.0-1.8) 07/12/17 04:37 Lymph # 0.6 K/mm3 (1.2-5.4) L 07/12/17 04:37 [place] # 1.1 K/mm3 (0.0-0.8) H 07/12/17 04:37 Eos # 0.2 K/mm3 (0.0-0.4) 07/12/17 04:37 Baso # 0.0 K/mm3 (0.0-0.1) 07/12/17 04:37 Add Manual Diff Complete 07/05/17 Unknown Total Counted 100 07/05/17 Unknown Seg Neutrophils % 84.8 % (40.0-70.0) H 07/12/17 04:37 Seg Neuts % (Manual) 89.0 % (40.0-70.0) H 07/05/17 Unknown Band Neutrophils % 1.0 % 07/05/17 Unknown Lymphocytes % (Manual) 7.0 % (13.4-35.0) L 07/05/17 Unknown Reactive Lymphs % (Man) 0 % 07/05/17 Unknown Monocytes % (Manual) 3.0 % (0.0-7.3) 07/05/17 Unknown Eosinophils % (Manual) 0 % (0.0-4.3) 07/05/17 Unknown Basophils % (Manual) 0 % (0.0-1.8) 07/05/17 Unknown Metamyelocytes % 0 % 07/05/17 Unknown Myelocytes % 0 % 07/05/17 Unknown Promyelocytes % 0 % 07/05/17 Unknown Blast Cells % 0 % 07/05/17 Unknown Nucleated RBC % Not Reportable 07/05/17 Unknown Seg Neutrophils # 10.9 K/mm3 (1.8-7.7) H 07/12/17 04:37 Seg Neutrophils # Man 19.8 K/mm3 (1.8-7.7) H 07/05/17 Unknown Band Neutrophils # 0.2 K/mm3 07/05/17 Unknown Lymphocytes # (Manual) 1.6 K/mm3 (1.2-5.4) 07/05/17 Unknown Abs React Lymphs (Man) 0.0 K/mm3 07/05/17 Unknown Monocytes # (Manual) 0.7 K/mm3 (0.0-0.8) 07/05/17 Unknown Eosinophils # (Manual) 0.0 K/mm3 (0.0-0.4) 07/05/17 Unknown Basophils # (Manual) 0.0 K/mm3 (0.0-0.1) 07/05/17 Unknown Metamyelocytes # 0.0 K/mm3 07/05/17 Unknown Myelocytes # 0.0 K/mm3 07/05/17 Unknown Promyelocytes # 0.0 K/mm3 07/05/17 Unknown Blast Cells # 0.0 K/mm3 07/05/17 Unknown WBC Morphology Not Reportable 07/05/17 Unknown Hypersegmented Neuts Not Reportable 07/05/17 Unknown Hyposegmented Neuts Not Reportable 07/05/17 Unknown Hypogranular Neuts Not Reportable 07/05/17 Unknown Smudge Cells Not Reportable 07/05/17 Unknown Toxic Granulation Not Reportable 07/05/17 Unknown Toxic Vacuolation Not Reportable 07/05/17 Unknown Dohle Bodies Not Reportable 07/05/17 Unknown Pelger-Huet Anomaly Not Reportable 07/05/17 Unknown [place]s Not Reportable 07/05/17 Unknown Platelet Estimate Appears decreased 07/05/17 Unknown Clumped Platelets Not Reportable 07/05/17 Unknown Plt Clumps, EDTA Not Reportable 07/05/17 Unknown Large Platelets Not Reportable 07/05/17 Unknown Giant Platelets Not Reportable 07/05/17 Unknown Platelet Satelliting Not Reportable 07/05/17 Unknown Plt Morphology Comment Not Reportable 07/05/17 Unknown RBC Morphology Not Reportable 07/05/17 Unknown Dimorphic RBCs Not Reportable 07/05/17 Unknown Polychromasia Not Reportable 07/05/17 Unknown Hypochromasia Not Reportable 07/05/17 Unknown Poikilocytosis 1+ 07/05/17 Unknown Anisocytosis 1+ 07/05/17 Unknown Microcytosis Few 07/05/17 Unknown Macrocytosis Not Reportable 07/05/17 Unknown Spherocytes Not Reportable 07/05/17 Unknown Pappenheimer Bodies Not Reportable 07/05/17 Unknown Sickle Cells Not Reportable 07/05/17 Unknown Target Cells Not Reportable 07/05/17 Unknown Tear Drop Cells Not Reportable 07/05/17 Unknown Ovalocytes Not Reportable 07/05/17 Unknown Helmet Cells Not Reportable 07/05/17 Unknown [place] Bodies Not Reportable 07/05/17 Unknown [place] Rings Not Reportable 07/05/17 Unknown [place] Cells Not Reportable 07/05/17 Unknown Bite Cells Not Reportable 07/05/17 Unknown Crenated Cell Not Reportable 07/05/17 Unknown Elliptocytes Not Reportable 07/05/17 Unknown Acanthocytes (Spur) Not Reportable 07/05/17 Unknown Rouleaux Not Reportable 07/05/17 Unknown Hemoglobin C Crystals Not Reportable 07/05/17 Unknown Schistocytes Not Reportable 07/05/17 Unknown Malaria parasites Not Reportable 07/05/17 Unknown [place] Bodies Not Reportable 07/05/17 Unknown Hem Pathologist Commnt No 07/05/17 Unknown PT 12.9 Sec. (12.2-14.9) 07/06/17 08:30 INR 0.93 (0.87-1.13) 07/06/17 08:30 POC ABG pH 7.448 (7.35-7.45) 07/10/17 14:14 POC ABG pCO2 39.1 (35-45) 07/10/17 14:14 POC ABG pO2 138 (80-105) H 07/10/17 14:14 POC ABG HCO3 27.0 07/10/17 14:14 POC ABG Total CO2 28 07/10/17 14:14 POC ABG O2 Sat 99 07/10/17 14:14 POC ABG Base Excess 3 07/10/17 14:14 FiO2 28 % 07/10/17 14:14 Sodium 139 mmol/L (137-145) 07/13/17 04:46 Potassium 4.0 mmol/L (3.6-5.0) 07/13/17 04:46 Chloride 100.9 mmol/L (98-107) 07/13/17 04:46 Carbon Dioxide 28 mmol/L (22-30) 07/13/17 04:46 Anion Gap 14 mmol/L 07/13/17 04:46 BUN 46 mg/dL (9-20) H 07/13/17 04:46 Creatinine 2.8 mg/dL (0.8-1.5) H 07/13/17 04:46 Estimated GFR 27 ml/min 07/13/17 04:46 BUN/Creatinine Ratio 16 % 07/13/17 04:46 Glucose 128 mg/dL (75-100) H 07/13/17 04:46 POC Glucose 243 (70-105) H 07/13/17 12:14 Osmolality 357 Mosm/kg 07/02/17 15:35 Lactic Acid 2.30 mmol/L (0.7-2.0) H* 07/05/17 Unknown Calcium 7.5 mg/dL (8.4-10.2) L 07/13/17 04:46 Ionized Calcium 4.6 mg/dL (4.8-5.6) L 07/04/17 14:10 Phosphorus 3.80 mg/dL (2.5-4.5) 07/04/17 14:10 Magnesium 1.80 mg/dL (1.7-2.3) 07/04/17 14:10 Total Bilirubin 0.40 mg/dL (0.1-1.2) 07/02/17 Unknown AST 31 units/L (5-40) 07/02/17 Unknown ALT 23 units/L (7-56) 07/02/17 Unknown Alkaline Phosphatase 139 units/L (35-129) H 07/02/17 Unknown Lactate Dehydrogenase 880 units/L (91-180) H 07/06/17 08:30 Total Creatine Kinase 58 units/L (55-170) 07/05/17 12:40 CK-MB (CK-2) 1.8 ng/mL (0.0-4.0) 07/05/17 12:40 CK-MB (CK-2) Rel Index 3.1 (0-4) 07/05/17 12:40 Troponin T 0.277 ng/mL (0.00-0.029) H* 07/05/17 12:40 C-Reactive Protein 9.90 mg/dL (0.00-1.30) H 07/05/17 Unknown Total Protein 4.9 g/dL (6.3-8.2) L 07/06/17 08:30 Albumin 3.3 g/dL (3.9-5) L 07/02/17 Unknown Albumin/Globulin Ratio 1.2 % 07/02/17 Unknown Triglycerides 83 mg/dL (2-149) 07/04/17 14:10 Cholesterol 83 mg/dL (50-199) 07/04/17 14:10 LDL Cholesterol Direct 22 mg/dL (50-130) L 07/04/17 14:10 HDL Cholesterol 45 mg/dL (40-59) 07/04/17 14:10 Cholesterol/HDL Ratio 1.84 % 07/04/17 14:10 TSH 3.200 mlU/mL (0.270-4.200) 07/02/17 Unknown Urine Color Yellow (Yellow) 07/02/17 17:25 Urine Turbidity Clear (Clear) 07/02/17 17:25 Urine pH 5.0 (5.0-7.0) 07/02/17 17:25 Ur Specific [place] 1.018 (1.003-1.030) 07/02/17 17:25 Urine Protein 100 mg/dl mg/dL (Negative) 07/02/17 17:25 Urine Glucose (UA) >=500 mg/dL (Negative) 07/02/17 17:25 Urine Ketones Neg mg/dL (Negative) 07/02/17 17:25 Urine Blood Sm (Negative) 07/02/17 17:25 Urine Nitrite Neg (Negative) 07/02/17 17:25 Urine Bilirubin Neg (Negative) 07/02/17 17:25 Urine Urobilinogen < 2.0 mg/dL (<2.0) 07/02/17 17:25 Ur Leukocyte Esterase Neg (Negative) 07/02/17 17:25 Urine WBC (Auto) 1.0 /HPF (0.0-6.0) 07/02/17 17:25 Urine RBC (Auto) 2.0 /HPF (0.0-6.0) 07/02/17 17:25 U Epithel Cells (Auto) 1.0 /HPF (0-13.0) 07/02/17 17:25 Fluid Type Pleural 07/06/17 16:53 Fluid Color Yellow 07/06/17 16:53 Fluid Appearance Clear 07/06/17 16:53 Fluid WBC 9 /mm3 07/06/17 16:53 Fluid RBC 6 /mm3 07/06/17 16:53 Fluid Seg Neutrophils 51.2 % 07/06/17 16:53 Fluid Lymphocytes 43.9 % 07/06/17 16:53 Fluid Reactive Lymphs 0 % 07/06/17 16:53 Fluid Monocytes 4.9 % 07/06/17 16:53 Fluid Eosinophils 0 % 07/06/17 16:53 Fluid Basophils 0 % 07/06/17 16:53 Fluid Total Protein < 3.0 (15.0-45.0) L 07/06/17 Unknown Fluid LDH 132 07/06/17 Unknown Fluid Comment 07/06/17 16:53 Salicylates < 0.3 mg/dL (2.8-20.0) L 07/02/17 Unknown Urine Opiates Screen Presumptive negative 07/02/17 17:25 Urine Methadone Screen Presumptive negative 07/02/17 17:25 Acetaminophen < 15.0 ug/mL (10.0-30.0) 07/02/17 Unknown Ur Barbiturates Screen Presumptive negative 07/02/17 17:25 Ur Phencyclidine Scrn Presumptive negative 07/02/17 17:25 Ur Amphetamines Screen Presumptive negative 07/02/17 17:25 U Benzodiazepines Scrn Presumptive negative 07/02/17 17:25 Urine Cocaine Screen Presumptive negative 07/02/17 17:25 U Marijuana (THC) Screen Presumptive negative 07/02/17 17:25 Drugs of Abuse Note Disclamer 07/02/17 17:25 Plasma/Serum Alcohol < 0.01 gm% (0-0.07) 07/02/17 Unknown
[2017-07-13 16:49] LABS: Heparin-Induced Platelet Antib Negative (Negative); Unfractionated Heparin Negative (Negative)
[2017-07-14] MEDS: FLAGYL PO SCH ×3 (06:46→23:20)
[2017-07-14] MEDS: NOVOLOG SUB-Q SCH ×3 (06:47→18:25)
[2017-07-14] MEDS: DUONEB *Not for PRN Use IH SCH ×2 (08:08→15:24)
[2017-07-14] MEDS: LEVEMIR SUB-Q SCH (09:22)
[2017-07-14] MEDS: COREG PO SCH ×2 (09:23→23:21)
[2017-07-14] MEDS: PEPCID PO SCH (09:23)
[2017-07-14] MEDS: ASPIRIN PO SCH (09:24)
[2017-07-14] MEDS: THERAGRAN-M Tab PO SCH (09:24)
[2017-07-14] MEDS: NORVASC PO SCH (09:24)
[2017-07-14] MEDS: HEPARIN SUB-Q SCH ×2 (09:25→23:21)
[2017-07-14] MEDS: FOLVITE PO SCH (09:25)
[2017-07-14] MEDS: ROCALTROL PO SCH (09:25)
--- NOTE | 2017-07-14 09:38 | Progress Note ---
Assessment and Plan Acute Hypoxemic Respiratory Failure on MVS Seizure Disorder s/p Cardiac Arrest ESRD on Dialysis Sepsis Syndrome Hyperosmolar non ketotic state Anemia Leucocytosis Acute Encephalopathy - lung protective strategies -VAP bundle addressed -Continue enteric feeding -Continue SBT and SAT trials - Continue aspiration precautions - Continue to wean FiO2 for sats > 94% - bronchodilators and pulmonary toilet - Continue empiric AB's per ID - continue glycemic control with insulin infusion (target BG <180mg/dl) - GI & VTE prophylaxis -Patient is Full code in the event of cardiopulmonary arrest Prognosis----Guarded -Plan for tracheostomy and PEG early next week - Continue other care per attending / other consultants Subjective Date of service: 07/14/17 Principal diagnosis: Acute Hypoxemic Resp Failure; S/P Cardiac Arrest; Hyperosmolar Non-ketotic Interval history: Patient is seen today for: Acute Hypoxemic Resp Failure; S/P Cardiac Arrest; Hyperosmolar Non-ketotic Seen and examined at bedside; 24hour events reviewed; nursing and respiratory care staff consulted; no adverse overnight events reported to me; remains on MVS ; AMS is persistent and not tolerating weaning trials well; No emesis or overt aspiration reported; Tolerating PSV trials but remains encephalopathic For tracheostomy placement early next week. Objective - Exam Narrative Exam: Patient is intubated and on mechanical ventilation. The patient appeared chronically ill looking and normally developed. Vital signs as documented. Head exam is unremarkable. No scleral icterus . Neck is without jugular venous distension, thyromegaly, or carotid bruits. Lungs are clear to auscultation. Cardiac exam reveals regular rate and Rhythm. First and second heart sounds normal. No murmurs, rubs or gallops. Abdominal exam reveals normal bowel sounds, no masses, no organomegaly and no aortic enlargement. Extremities are non edematous and both femoral and pedal pulses are normal. FAMILY [employer] ATTORNEY: Patient is comatose. He is off sedation. Vital Signs - 12hr 07/13/17 07/13/17 07/13/17 21:45 22:00 22:15 Temperature Pulse Rate 109 H 109 H 107 H Pulse Rate [ Anterior Bilateral Throughout] Pulse Rate [ From Monitor] Respiratory 13 14 12 Rate Respiratory Rate [Anterior Bilateral Throughout] Blood Pressure 131/72 141/68 128/71 O2 Sat by Pulse 100 100 100 Oximetry 07/13/17 07/13/17 07/13/17 22:30 22:45 22:52 Temperature Pulse Rate 107 H 107 H 106 H Pulse Rate [ Anterior Bilateral Throughout] Pulse Rate [ From Monitor] Respiratory 13 13 Rate Respiratory Rate [Anterior Bilateral Throughout] Blood Pressure 143/68 137/69 137/69 O2 Sat by Pulse 100 100 Oximetry 07/13/17 07/13/17 07/13/17 23:00 23:15 23:27 Temperature 98.2 F Pulse Rate 106 H 99 H 95 H Pulse Rate [ Anterior Bilateral Throughout] Pulse Rate [ From Monitor] Respiratory 12 12 Rate Respiratory Rate [Anterior Bilateral Throughout] Blood Pressure 128/67 139/61 139/61 O2 Sat by Pulse 100 100 100 Oximetry 07/13/17 07/13/17 07/13/17 23:29 23:30 23:40 Temperature Pulse Rate 97 H Pulse Rate [ 97 H 93 H Anterior Bilateral Throughout] Pulse Rate [ From Monitor] Respiratory 13 Rate Respiratory 16 16 Rate [Anterior Bilateral Throughout] Blood Pressure 131/62 O2 Sat by Pulse 100 Oximetry 07/13/17 07/14/17 07/14/17 23:45 00:00 00:01 Temperature Pulse Rate 90 93 H Pulse Rate [ Anterior Bilateral Throughout] Pulse Rate [ From Monitor] Respiratory 12 12 Rate Respiratory Rate [Anterior Bilateral Throughout] Blood Pressure 125/59 113/58 O2 Sat by Pulse 100 95 100 Oximetry 07/14/17 07/14/17 07/14/17 00:15 00:30 00:45 Temperature Pulse Rate 97 H 97 H 98 H Pulse Rate [ Anterior Bilateral Throughout] Pulse Rate [ From Monitor] Respiratory 12 15 13 Rate Respiratory Rate [Anterior Bilateral Throughout] Blood Pressure 119/65 120/66 119/64 O2 Sat by Pulse 100 100 100 Oximetry 07/14/17 07/14/17 07/14/17 01:00 01:15 01:30 Temperature Pulse Rate 99 H 93 H 96 H Pulse Rate [ Anterior Bilateral Throughout] Pulse Rate [ From Monitor] Respiratory 13 12 12 Rate Respiratory Rate [Anterior Bilateral Throughout] Blood Pressure 122/65 113/57 117/65 O2 Sat by Pulse 100 100 100 Oximetry 07/14/17 07/14/17 07/14/17 01:45 02:00 02:15 Temperature Pulse Rate 99 H 97 H 99 H Pulse Rate [ Anterior Bilateral Throughout] Pulse Rate [ From Monitor] Respiratory 12 12 13 Rate Respiratory Rate [Anterior Bilateral Throughout] Blood Pressure 116/66 113/68 113/68 O2 Sat by Pulse 100 100 Oximetry 07/14/17 07/14/17 07/14/17 02:30 02:45 03:00 Temperature Pulse Rate 98 H 101 H 98 H Pulse Rate [ Anterior Bilateral Throughout] Pulse Rate [ From Monitor] Respiratory 13 12 13 Rate Respiratory Rate [Anterior Bilateral Throughout] Blood Pressure 126/68 126/66 128/66 O2 Sat by Pulse 100 100 100 Oximetry 07/14/17 07/14/17 07/14/17 03:15 03:22 03:27 Temperature 98.6 F Pulse Rate 102 H 100 H Pulse Rate [ Anterior Bilateral Throughout] Pulse Rate [ From Monitor] Respiratory 12 Rate Respiratory Rate [Anterior Bilateral Throughout] Blood Pressure 128/66 130/68 O2 Sat by Pulse 100 Oximetry 07/14/17 07/14/17 07/14/17 03:30 03:45 04:00 Temperature Pulse Rate 98 H 101 H 100 H Pulse Rate [ Anterior Bilateral Throughout] Pulse Rate [ From Monitor] Respiratory 12 12 13 Rate Respiratory Rate [Anterior Bilateral Throughout] Blood Pressure 122/61 122/66 131/67 O2 Sat by Pulse 100 100 100 Oximetry 07/14/17 07/14/17 07/14/17 04:15 04:30 04:45 Temperature Pulse Rate 101 H 94 H 95 H Pulse Rate [ Anterior Bilateral Throughout] Pulse Rate [ From Monitor] Respiratory 13 12 12 Rate Respiratory Rate [Anterior Bilateral Throughout] Blood Pressure 131/67 129/62 123/64 O2 Sat by Pulse 100 100 Oximetry 07/14/17 07/14/17 07/14/17 05:00 05:15 05:30 Temperature Pulse Rate 92 H 94 H 94 H Pulse Rate [ Anterior Bilateral Throughout] Pulse Rate [ From Monitor] Respiratory 12 11 L 13 Rate Respiratory Rate [Anterior Bilateral Throughout] Blood Pressure 125/63 125/65 126/67 O2 Sat by Pulse 100 100 100 Oximetry 07/14/17 07/14/17 07/14/17 05:45 06:00 06:15 Temperature Pulse Rate 96 H 100 H 103 H Pulse Rate [ Anterior Bilateral Throughout] Pulse Rate [ From Monitor] Respiratory 12 12 10 L Rate Respiratory Rate [Anterior Bilateral Throughout] Blood Pressure 124/71 124/69 124/69 O2 Sat by Pulse 100 100 100 Oximetry 07/14/17 07/14/17 07/14/17 06:31 06:45 07:00 Temperature 97.5 F L Pulse Rate 102 H 100 H 97 H Pulse Rate [ Anterior Bilateral Throughout] Pulse Rate [ From Monitor] Respiratory 11 L 14 13 Rate Respiratory Rate [Anterior Bilateral Throughout] Blood Pressure 136/83 142/78 148/82 O2 Sat by Pulse 100 100 Oximetry 07/14/17 07/14/17 07/14/17 07:15 07:30 07:45 Temperature Pulse Rate 95 H 90 87 Pulse Rate [ Anterior Bilateral Throughout] Pulse Rate [ From Monitor] Respiratory 12 12 12 Rate Respiratory Rate [Anterior Bilateral Throughout] Blood Pressure 144/84 133/72 135/72 O2 Sat by Pulse 100 100 100 Oximetry 07/14/17 07/14/17 07/14/17 07:59 08:00 08:06 Temperature Pulse Rate 86 86 94 H Pulse Rate [ Anterior Bilateral Throughout] Pulse Rate [ 96 H From Monitor] Respiratory 12 21 Rate Respiratory Rate [Anterior Bilateral Throughout] Blood Pressure 135/72 135/72 131/71 O2 Sat by Pulse 100 100 100 Oximetry 07/14/17 07/14/17 07/14/17 08:08 08:15 08:16 Temperature Pulse Rate 92 H Pulse Rate [ 93 H 90 Anterior Bilateral Throughout] Pulse Rate [ From Monitor] Respiratory 11 L Rate Respiratory 17 14 Rate [Anterior Bilateral Throughout] Blood Pressure 145/81 O2 Sat by Pulse 100 Oximetry 07/14/17 07/14/17 07/14/17 08:30 09:23 09:24 Temperature Pulse Rate 96 H 93 H 93 H Pulse Rate [ Anterior Bilateral Throughout] Pulse Rate [ From Monitor] Respiratory 14 Rate Respiratory Rate [Anterior Bilateral Throughout] Blood Pressure 137/72 121/65 121/65 O2 Sat by Pulse 100 Oximetry Constitutional: no acute distress, lethargic Eyes: non-icteric ENT: oropharynx moist, other (ETT at 20cm TIKI) Neck: supple, no lymphadenopathy, JVD, other (no thyromegally) Effort: mildly labored Ascultation: Bilateral: diminished breath sounds (bases), rales Percussion: Right: dull (base), Bilateral: not dull Cardiovascular: regular rate and rhythm, other (no rubs / murmurs) Gastrointestinal: normoactive bowel sounds, soft, non-tender, non-distended, other (no HSM) Integumentary: normal Extremities: no cyanosis, no edema, pulses normal, no ischemia or petechiae Neurologic: normal mental status, non-focal exam, pupils equal and round, other (no spontaneous limb movements) Psychiatric: other (unable to assess) CBC and BMP: 07/12/17 04:37 07/13/17 04:46 ABG, PT/INR, D-dimer: ABG POC ABG pH 7.448 (7.35-7.45) 07/10/17 14:14 POC ABG pCO2 39.1 (35-45) 07/10/17 14:14 POC ABG pO2 138 (80-105) H 07/10/17 14:14 POC ABG HCO3 27.0 07/10/17 14:14 POC ABG Total CO2 28 07/10/17 14:14 POC ABG O2 Sat 99 07/10/17 14:14 PT/INR, D-dimer PT 12.9 Sec. (12.2-14.9) 07/06/17 08:30 INR 0.93 (0.87-1.13) 07/06/17 08:30 Abnormal lab findings: Abnormal Labs 07/02/17 07/02/17 07/02/17 15:03 15:12 17:49 WBC 13.5 H RBC 3.47 L Hgb 9.9 L Hct 33.1 L MCV 96 H MCHC 30 L RDW 15.4 H Plt Count 130 L Lymph % (Auto) [place] % (Auto) Lymph # [place] # Seg Neutrophils % Seg Neuts % (Manual) 95.0 H Lymphocytes % (Manual) 3.0 L Seg Neutrophils # Seg Neutrophils # Man 12.8 H Lymphocytes # (Manual) 0.4 L POC ABG pH POC ABG pCO2 POC ABG pO2 Sodium Potassium Chloride Carbon Dioxide BUN Creatinine Glucose POC Glucose > 500 H Lactic Acid 7.80 H* Calcium Ionized Calcium Alkaline Phosphatase Lactate Dehydrogenase CK-MB (CK-2) Troponin T C-Reactive Protein Total Protein Albumin LDL Cholesterol Direct Fluid Total Protein Salicylates 07/02/17 07/02/17 07/02/17 20:29 21:31 23:38 WBC RBC Hgb Hct MCV MCHC RDW Plt Count Lymph % (Auto) [place] % (Auto) Lymph # [place] # Seg Neutrophils % Seg Neuts % (Manual) Lymphocytes % (Manual) Seg Neutrophils # Seg Neutrophils # Man Lymphocytes # (Manual) POC ABG pH POC ABG pCO2 POC ABG pO2 Sodium 129 L 132 L Potassium Chloride 87.2 L 93.7 L Carbon Dioxide 18 L 15 L BUN 51 H 47 H Creatinine 4.3 H 4.1 H Glucose 950 H* 825 H* POC Glucose Lactic Acid 5.70 H* Calcium 7.1 L 6.8 L Ionized Calcium Alkaline Phosphatase Lactate Dehydrogenase CK-MB (CK-2) Troponin T C-Reactive Protein Total Protein Albumin LDL Cholesterol Direct Fluid Total Protein Salicylates 07/02/17 07/02/17 07/02/17 23:38 23:44 Unknown WBC RBC Hgb Hct MCV MCHC RDW Plt Count Lymph % (Auto) [place] % (Auto) Lymph # [place] # Seg Neutrophils % Seg Neuts % (Manual) Lymphocytes % (Manual) Seg Neutrophils # Seg Neutrophils # Man Lymphocytes # (Manual) POC ABG pH POC ABG pCO2 POC ABG pO2 Sodium 132 L 125 L D Potassium Chloride 94.6 L 85.6 L Carbon Dioxide 17 L 19 L D BUN 51 H 50 H Creatinine 4.1 H 4.4 H D Glucose 772 H* 1113 H* POC Glucose > 500 H Lactic Acid Calcium 6.7 L 7.2 L Ionized Calcium Alkaline Phosphatase 139 H Lactate Dehydrogenase CK-MB (CK-2) Troponin T C-Reactive Protein Total Protein 6.1 L Albumin 3.3 L LDL Cholesterol Direct Fluid Total Protein Salicylates 07/02/17 07/02/17 07/03/17 Unknown Unknown 01:00 WBC RBC Hgb Hct MCV MCHC RDW Plt Count Lymph % (Auto) [place] % (Auto) Lymph # [place] # Seg Neutrophils % Seg Neuts % (Manual) Lymphocytes % (Manual) Seg Neutrophils # Seg Neutrophils # Man Lymphocytes # (Manual) POC ABG pH POC ABG pCO2 POC ABG pO2 Sodium 134 L Potassium Chloride 96.4 L Carbon Dioxide 19 L BUN 50 H Creatinine 4.0 H Glucose 677 H* POC Glucose Lactic Acid 6.30 H* Calcium 6.6 L Ionized Calcium Alkaline Phosphatase Lactate Dehydrogenase CK-MB (CK-2) Troponin T C-Reactive Protein Total Protein Albumin LDL Cholesterol Direct Fluid Total Protein Salicylates < 0.3 L 07/03/17 07/03/17 07/03/17 01:04 02:15 02:15 WBC RBC Hgb Hct MCV MCHC RDW Plt Count Lymph % (Auto) [place] % (Auto) Lymph # [place] # Seg Neutrophils % Seg Neuts % (Manual) Lymphocytes % (Manual) Seg Neutrophils # Seg Neutrophils # Man Lymphocytes # (Manual) POC ABG pH POC ABG pCO2 POC ABG pO2 Sodium 134 L Potassium Chloride 97.6 L Carbon Dioxide 19 L BUN 50 H Creatinine 4.2 H Glucose 592 H* POC Glucose > 500 H Lactic Acid 4.30 H* Calcium 6.6 L Ionized Calcium Alkaline Phosphatase Lactate Dehydrogenase CK-MB (CK-2) Troponin T C-Reactive Protein Total Protein Albumin LDL Cholesterol Direct Fluid Total Protein Salicylates 07/03/17 07/03/17 07/03/17 02:21 03:25 04:10 WBC RBC Hgb Hct MCV MCHC RDW Plt Count Lymph % (Auto) [place] % (Auto) Lymph # [place] # Seg Neutrophils % Seg Neuts % (Manual) Lymphocytes % (Manual) Seg Neutrophils # Seg Neutrophils # Man Lymphocytes # (Manual) POC ABG pH POC ABG pCO2 POC ABG pO2 Sodium Potassium Chloride Carbon Dioxide 19 L BUN 50 H Creatinine 4.0 H Glucose 416 H POC Glucose 482 H > 500 H Lactic Acid Calcium 6.8 L Ionized Calcium Alkaline Phosphatase Lactate Dehydrogenase CK-MB (CK-2) Troponin T C-Reactive Protein Total Protein Albumin LDL Cholesterol Direct Fluid Total Protein Salicylates 07/03/17 07/03/17 07/03/17 04:30 04:36 05:33 WBC RBC Hgb Hct MCV MCHC RDW Plt Count Lymph % (Auto) [place] % (Auto) Lymph # [place] # Seg Neutrophils % Seg Neuts % (Manual) Lymphocytes % (Manual) Seg Neutrophils # Seg Neutrophils # Man Lymphocytes # (Manual) POC ABG pH 7.311 L POC ABG pCO2 33.5 L POC ABG pO2 73 L Sodium Potassium Chloride Carbon Dioxide BUN Creatinine Glucose POC Glucose 389 H 326 H Lactic Acid Calcium Ionized Calcium Alkaline Phosphatase Lactate Dehydrogenase CK-MB (CK-2) Troponin T C-Reactive Protein Total Protein Albumin LDL Cholesterol Direct Fluid Total Protein Salicylates 07/03/17 07/03/17 07/03/17 06:06 07:38 09:58 WBC RBC Hgb Hct MCV MCHC RDW Plt Count Lymph % (Auto) [place] % (Auto) Lymph # [place] # Seg Neutrophils % Seg Neuts % (Manual) Lymphocytes % (Manual) Seg Neutrophils # Seg Neutrophils # Man Lymphocytes # (Manual) POC ABG pH POC ABG pCO2 POC ABG pO2 Sodium Potassium Chloride Carbon Dioxide BUN Creatinine Glucose POC Glucose 247 H 118 H 52 L Lactic Acid Calcium Ionized Calcium Alkaline Phosphatase Lactate Dehydrogenase CK-MB (CK-2) Troponin T C-Reactive Protein Total Protein Albumin LDL Cholesterol Direct Fluid Total Protein Salicylates 07/03/17 07/03/17 07/03/17 11:00 13:16 15:02 WBC RBC Hgb Hct MCV MCHC RDW Plt Count Lymph % (Auto) [place] % (Auto) Lymph # [place] # Seg Neutrophils % Seg Neuts % (Manual) Lymphocytes % (Manual) Seg Neutrophils # Seg Neutrophils # Man Lymphocytes # (Manual) POC ABG pH POC ABG pCO2 POC ABG pO2 Sodium Potassium Chloride Carbon Dioxide BUN Creatinine Glucose POC Glucose 64 L 112 H 158 H Lactic Acid Calcium Ionized Calcium Alkaline Phosphatase Lactate Dehydrogenase CK-MB (CK-2) Troponin T C-Reactive Protein Total Protein Albumin LDL Cholesterol Direct Fluid Total Protein Salicylates 07/03/17 07/03/17 07/03/17 18:17 Unknown Unknown WBC RBC Hgb Hct MCV MCHC RDW Plt Count Lymph % (Auto) [place] % (Auto) Lymph # [place] # Seg Neutrophils % Seg Neuts % (Manual) Lymphocytes % (Manual) Seg Neutrophils # Seg Neutrophils # Man Lymphocytes # (Manual) POC ABG pH POC ABG pCO2 POC ABG pO2 Sodium Potassium Chloride Carbon Dioxide BUN Creatinine Glucose POC Glucose 131 H Lactic Acid 2.40 H* Calcium Ionized Calcium Alkaline Phosphatase Lactate Dehydrogenase CK-MB (CK-2) Troponin T C-Reactive Protein 1.90 H Total Protein Albumin LDL Cholesterol Direct Fluid Total Protein Salicylates 07/03/17 07/04/17 07/04/17 Unknown 00:13 02:04 WBC RBC Hgb Hct MCV MCHC RDW Plt Count Lymph % (Auto) [place] % (Auto) Lymph # [place] # Seg Neutrophils % Seg Neuts % (Manual) Lymphocytes % (Manual) Seg Neutrophils # Seg Neutrophils # Man Lymphocytes # (Manual) POC ABG pH POC ABG pCO2 POC ABG pO2 Sodium Potassium Chloride Carbon Dioxide BUN 52 H Creatinine 4.3 H Glucose POC Glucose 69 L 111 H Lactic Acid Calcium 7.2 L Ionized Calcium Alkaline Phosphatase Lactate Dehydrogenase CK-MB (CK-2) Troponin T C-Reactive Protein Total Protein Albumin LDL Cholesterol Direct Fluid Total Protein Salicylates 07/04/17 07/04/17 07/04/17 04:38 08:00 08:00 WBC 28.3 H RBC 3.55 L Hgb 10.3 L Hct 31.2 L MCV MCHC RDW 15.3 H Plt Count 101 L Lymph % (Auto) [place] % (Auto) Lymph # [place] # Seg Neutrophils % Seg Neuts % (Manual) Lymphocytes % (Manual) Seg Neutrophils # Seg Neutrophils # Man Lymphocytes # (Manual) POC ABG pH POC ABG pCO2 27.6 L POC ABG pO2 Sodium Potassium Chloride Carbon Dioxide 20 L BUN 62 H Creatinine 4.7 H Glucose POC Glucose Lactic Acid Calcium 7.0 L Ionized Calcium Alkaline Phosphatase Lactate Dehydrogenase CK-MB (CK-2) Troponin T C-Reactive Protein Total Protein Albumin LDL Cholesterol Direct Fluid Total Protein Salicylates 07/04/17 07/04/17 07/04/17 14:10 14:10 14:33 WBC RBC Hgb Hct MCV MCHC RDW Plt Count Lymph % (Auto) [place] % (Auto) Lymph # [place] # Seg Neutrophils % Seg Neuts % (Manual) Lymphocytes % (Manual) Seg Neutrophils # Seg Neutrophils # Man Lymphocytes # (Manual) POC ABG pH 7.474 H POC ABG pCO2 29.4 L POC ABG pO2 Sodium Potassium Chloride Carbon Dioxide BUN Creatinine Glucose POC Glucose Lactic Acid Calcium Ionized Calcium 4.6 L Alkaline Phosphatase Lactate Dehydrogenase CK-MB (CK-2) 4.3 H Troponin T 0.282 H* C-Reactive Protein Total Protein Albumin LDL Cholesterol Direct 22 L Fluid Total Protein Salicylates 07/04/17 07/04/17 07/04/17 17:26 20:40 23:34 WBC RBC Hgb Hct MCV MCHC RDW Plt Count Lymph % (Auto) [place] % (Auto) Lymph # [place] # Seg Neutrophils % Seg Neuts % (Manual) Lymphocytes % (Manual) Seg Neutrophils # Seg Neutrophils # Man Lymphocytes # (Manual) POC ABG pH POC ABG pCO2 POC ABG pO2 Sodium Potassium Chloride Carbon Dioxide BUN Creatinine Glucose POC Glucose 201 H 188 H Lactic Acid Calcium Ionized Calcium Alkaline Phosphatase Lactate Dehydrogenase CK-MB (CK-2) Troponin T 0.276 H* C-Reactive Protein Total Protein Albumin LDL Cholesterol Direct Fluid Total Protein Salicylates 07/05/17 07/05/17 07/05/17 05:42 07:50 11:52 WBC RBC Hgb Hct MCV MCHC RDW Plt Count Lymph % (Auto) [place] % (Auto) Lymph # [place] # Seg Neutrophils % Seg Neuts % (Manual) Lymphocytes % (Manual) Seg Neutrophils # Seg Neutrophils # Man Lymphocytes # (Manual) POC ABG pH POC ABG pCO2 POC ABG pO2 117 H Sodium Potassium Chloride Carbon Dioxide BUN Creatinine Glucose POC Glucose 126 H 110 H Lactic Acid Calcium Ionized Calcium Alkaline Phosphatase Lactate Dehydrogenase CK-MB (CK-2) Troponin T C-Reactive Protein Total Protein Albumin LDL Cholesterol Direct Fluid Total Protein Salicylates 07/05/17 07/05/17 07/05/17 12:40 17:51 18:12 WBC RBC Hgb Hct MCV MCHC RDW Plt Count Lymph % (Auto) [place] % (Auto) Lymph # [place] # Seg Neutrophils % Seg Neuts % (Manual) Lymphocytes % (Manual) Seg Neutrophils # Seg Neutrophils # Man Lymphocytes # (Manual) POC ABG pH POC ABG pCO2 POC ABG pO2 Sodium Potassium Chloride Carbon Dioxide BUN Creatinine Glucose POC Glucose 57 L 69 L Lactic Acid Calcium Ionized Calcium Alkaline Phosphatase Lactate Dehydrogenase CK-MB (CK-2) Troponin T 0.277 H* C-Reactive Protein Total Protein Albumin LDL Cholesterol Direct Fluid Total Protein Salicylates 07/05/17 07/05/17 07/05/17 Unknown Unknown Unknown WBC 22.2 H RBC 3.24 L Hgb 9.7 L Hct 28.6 L MCV MCHC RDW Plt Count 89 L Lymph % (Auto) [place] % (Auto) Lymph # [place] # Seg Neutrophils % Seg Neuts % (Manual) 89.0 H Lymphocytes % (Manual) 7.0 L Seg Neutrophils # Seg Neutrophils # Man 19.8 H Lymphocytes # (Manual) POC ABG pH POC ABG pCO2 POC ABG pO2 Sodium Potassium 3.5 L Chloride Carbon Dioxide BUN 37 H Creatinine 3.1 H Glucose 120 H POC Glucose Lactic Acid 2.30 H* Calcium 7.7 L Ionized Calcium Alkaline Phosphatase Lactate Dehydrogenase CK-MB (CK-2) Troponin T C-Reactive Protein Total Protein Albumin LDL Cholesterol Direct Fluid Total Protein Salicylates 07/05/17 07/06/17 07/06/17 Unknown 03:25 03:25 WBC 17.7 H RBC 3.14 L Hgb 9.3 L Hct 27.8 L MCV MCHC RDW 15.7 H Plt Count 82 L Lymph % (Auto) 2.5 L [place] % (Auto) Lymph # 0.4 L [place] # 1.1 H Seg Neutrophils % 90.0 H Seg Neuts % (Manual) Lymphocytes % (Manual) Seg Neutrophils # 15.9 H Seg Neutrophils # Man Lymphocytes # (Manual) POC ABG pH POC ABG pCO2 POC ABG pO2 Sodium Potassium 3.3 L Chloride Carbon Dioxide BUN 44 H Creatinine 3.6 H Glucose 132 H POC Glucose Lactic Acid Calcium 7.4 L Ionized Calcium Alkaline Phosphatase Lactate Dehydrogenase CK-MB (CK-2) Troponin T C-Reactive Protein 9.90 H Total Protein Albumin LDL Cholesterol Direct Fluid Total Protein Salicylates 07/06/17 07/06/17 07/06/17 04:19 05:24 08:30 WBC RBC Hgb Hct MCV MCHC RDW Plt Count Lymph % (Auto) [place] % (Auto) Lymph # [place] # Seg Neutrophils % Seg Neuts % (Manual) Lymphocytes % (Manual) Seg Neutrophils # Seg Neutrophils # Man Lymphocytes # (Manual) POC ABG pH POC ABG pCO2 34.3 L POC ABG pO2 Sodium Potassium Chloride Carbon Dioxide BUN Creatinine Glucose POC Glucose 174 H Lactic Acid Calcium Ionized Calcium Alkaline Phosphatase Lactate Dehydrogenase 880 H CK-MB (CK-2) Troponin T C-Reactive Protein Total Protein 4.9 L Albumin LDL Cholesterol Direct Fluid Total Protein Salicylates 07/06/17 07/06/17 07/06/17 11:13 17:14 23:38 WBC RBC Hgb Hct MCV MCHC RDW Plt Count Lymph % (Auto) [place] % (Auto) Lymph # [place] # Seg Neutrophils % Seg Neuts % (Manual) Lymphocytes % (Manual) Seg Neutrophils # Seg Neutrophils # Man Lymphocytes # (Manual) POC ABG pH POC ABG pCO2 POC ABG pO2 Sodium Potassium Chloride Carbon Dioxide BUN Creatinine Glucose POC Glucose 216 H 211 H 122 H Lactic Acid Calcium Ionized Calcium Alkaline Phosphatase Lactate Dehydrogenase CK-MB (CK-2) Troponin T C-Reactive Protein Total Protein Albumin LDL Cholesterol Direct Fluid Total Protein Salicylates 07/06/17 07/07/17 07/07/17 Unknown 04:38 05:00 WBC 16.1 H RBC 3.00 L Hgb 8.9 L Hct 26.6 L MCV MCHC RDW 15.6 H Plt Count 106 L Lymph % (Auto) 4.1 L [place] % (Auto) 8.0 H Lymph # 0.7 L [place] # 1.3 H Seg Neutrophils % 86.6 H Seg Neuts % (Manual) Lymphocytes % (Manual) Seg Neutrophils # 13.9 H Seg Neutrophils # Man Lymphocytes # (Manual) POC ABG pH 7.455 H POC ABG pCO2 POC ABG pO2 134 H Sodium Potassium Chloride Carbon Dioxide BUN Creatinine Glucose POC Glucose Lactic Acid Calcium Ionized Calcium Alkaline Phosphatase Lactate Dehydrogenase CK-MB (CK-2) Troponin T C-Reactive Protein Total Protein Albumin LDL Cholesterol Direct Fluid Total Protein < 3.0 L Salicylates 07/07/17 07/07/17 07/07/17 05:00 05:17 11:33 WBC RBC Hgb Hct MCV MCHC RDW Plt Count Lymph % (Auto) [place] % (Auto) Lymph # [place] # Seg Neutrophils % Seg Neuts % (Manual) Lymphocytes % (Manual) Seg Neutrophils # Seg Neutrophils # Man Lymphocytes # (Manual) POC ABG pH POC ABG pCO2 POC ABG pO2 Sodium Potassium Chloride Carbon Dioxide BUN 30 H Creatinine 2.8 H Glucose 188 H POC Glucose 189 H 275 H Lactic Acid Calcium 7.9 L Ionized Calcium Alkaline Phosphatase Lactate Dehydrogenase CK-MB (CK-2) Troponin T C-Reactive Protein Total Protein Albumin LDL Cholesterol Direct Fluid Total Protein Salicylates 07/07/17 07/07/17 07/07/17 16:04 17:08 23:45 WBC RBC Hgb Hct MCV MCHC RDW Plt Count Lymph % (Auto) [place] % (Auto) Lymph # [place] # Seg Neutrophils % Seg Neuts % (Manual) Lymphocytes % (Manual) Seg Neutrophils # Seg Neutrophils # Man Lymphocytes # (Manual) POC ABG pH POC ABG pCO2 POC ABG pO2 126 H Sodium Potassium Chloride Carbon Dioxide BUN Creatinine Glucose POC Glucose 241 H 118 H Lactic Acid Calcium Ionized Calcium Alkaline Phosphatase Lactate Dehydrogenase CK-MB (CK-2) Troponin T C-Reactive Protein Total Protein Albumin LDL Cholesterol Direct Fluid Total Protein Salicylates 07/08/17 07/08/17 07/08/17 05:30 05:54 06:12 WBC 17.0 H RBC 3.27 L Hgb 9.5 L Hct 29.1 L MCV MCHC RDW 15.6 H Plt Count 133 L Lymph % (Auto) 4.6 L [place] % (Auto) 9.2 H Lymph # 0.8 L [place] # 1.6 H Seg Neutrophils % 83.9 H Seg Neuts % (Manual) Lymphocytes % (Manual) Seg Neutrophils # 14.3 H Seg Neutrophils # Man Lymphocytes # (Manual) POC ABG pH 7.477 H POC ABG pCO2 POC ABG pO2 118 H Sodium Potassium Chloride Carbon Dioxide BUN Creatinine Glucose POC Glucose 199 H Lactic Acid Calcium Ionized Calcium Alkaline Phosphatase Lactate Dehydrogenase CK-MB (CK-2) Troponin T C-Reactive Protein Total Protein Albumin LDL Cholesterol Direct Fluid Total Protein Salicylates 07/08/17 07/08/17 07/08/17 06:12 11:37 17:21 WBC RBC Hgb Hct MCV MCHC RDW Plt Count Lymph % (Auto) [place] % (Auto) Lymph # [place] # Seg Neutrophils % Seg Neuts % (Manual) Lymphocytes % (Manual) Seg Neutrophils # Seg Neutrophils # Man Lymphocytes # (Manual) POC ABG pH POC ABG pCO2 POC ABG pO2 Sodium Potassium Chloride Carbon Dioxide BUN 44 H Creatinine 3.4 H Glucose 190 H POC Glucose 236 H 186 H Lactic Acid Calcium 7.8 L Ionized Calcium Alkaline Phosphatase Lactate Dehydrogenase CK-MB (CK-2) Troponin T C-Reactive Protein Total Protein Albumin LDL Cholesterol Direct Fluid Total Protein Salicylates 07/08/17 07/09/17 07/09/17 23:09 04:27 05:02 WBC 17.8 H RBC 2.88 L Hgb 8.5 L Hct 25.6 L MCV MCHC RDW 15.5 H Plt Count Lymph % (Auto) 4.6 L [place] % (Auto) 10.2 H Lymph # 0.8 L [place] # 1.8 H Seg Neutrophils % 83.4 H Seg Neuts % (Manual) Lymphocytes % (Manual) Seg Neutrophils # 14.8 H Seg Neutrophils # Man Lymphocytes # (Manual) POC ABG pH POC ABG pCO2 POC ABG pO2 132 H Sodium Potassium Chloride Carbon Dioxide BUN Creatinine Glucose POC Glucose 203 H Lactic Acid Calcium Ionized Calcium Alkaline Phosphatase Lactate Dehydrogenase CK-MB (CK-2) Troponin T C-Reactive Protein Total Protein Albumin LDL Cholesterol Direct Fluid Total Protein Salicylates 07/09/17 07/09/17 07/09/17 05:02 05:33 12:07 WBC RBC Hgb Hct MCV MCHC RDW Plt Count Lymph % (Auto) [place] % (Auto) Lymph # [place] # Seg Neutrophils % Seg Neuts % (Manual) Lymphocytes % (Manual) Seg Neutrophils # Seg Neutrophils # Man Lymphocytes # (Manual) POC ABG pH POC ABG pCO2 POC ABG pO2 Sodium Potassium Chloride Carbon Dioxide BUN 61 H Creatinine 4.0 H Glucose 183 H POC Glucose 177 H 276 H Lactic Acid Calcium 7.6 L Ionized Calcium Alkaline Phosphatase Lactate Dehydrogenase CK-MB (CK-2) Troponin T C-Reactive Protein Total Protein Albumin LDL Cholesterol Direct Fluid Total Protein Salicylates 07/09/17 07/10/17 07/10/17 18:54 03:50 03:50 WBC 16.8 H RBC 2.77 L Hgb 8.1 L Hct 24.9 L MCV MCHC RDW 15.7 H Plt Count Lymph % (Auto) 4.3 L [place] % (Auto) 10.8 H Lymph # 0.7 L [place] # 1.8 H Seg Neutrophils % 83.5 H Seg Neuts % (Manual) Lymphocytes % (Manual) Seg Neutrophils # 14.1 H Seg Neutrophils # Man Lymphocytes # (Manual) POC ABG pH POC ABG pCO2 POC ABG pO2 Sodium Potassium Chloride Carbon Dioxide BUN 31 H Creatinine 2.5 H Glucose 129 H POC Glucose 178 H Lactic Acid Calcium 8.1 L Ionized Calcium Alkaline Phosphatase Lactate Dehydrogenase CK-MB (CK-2) Troponin T C-Reactive Protein Total Protein Albumin LDL Cholesterol Direct Fluid Total Protein Salicylates 07/10/17 07/10/17 07/10/17 05:41 10:02 10:07 WBC 16.3 H RBC 2.66 L Hgb 7.9 L Hct 23.5 L MCV MCHC RDW 16.1 H Plt Count Lymph % (Auto) 4.8 L [place] % (Auto) 9.6 H Lymph # 0.8 L [place] # 1.6 H Seg Neutrophils % 84.0 H Seg Neuts % (Manual) Lymphocytes % (Manual) Seg Neutrophils # 13.7 H Seg Neutrophils # Man Lymphocytes # (Manual) POC ABG pH POC ABG pCO2 POC ABG pO2 Sodium Potassium Chloride Carbon Dioxide BUN 35 H Creatinine 2.6 H Glucose 196 H POC Glucose 160 H Lactic Acid Calcium 7.9 L Ionized Calcium Alkaline Phosphatase Lactate Dehydrogenase CK-MB (CK-2) Troponin T C-Reactive Protein Total Protein Albumin LDL Cholesterol Direct Fluid Total Protein Salicylates 07/10/17 07/10/17 07/10/17 11:21 14:14 16:36 WBC RBC Hgb Hct MCV MCHC RDW Plt Count Lymph % (Auto) [place] % (Auto) Lymph # [place] # Seg Neutrophils % Seg Neuts % (Manual) Lymphocytes % (Manual) Seg Neutrophils # Seg Neutrophils # Man Lymphocytes # (Manual) POC ABG pH POC ABG pCO2 POC ABG pO2 138 H Sodium Potassium Chloride Carbon Dioxide BUN Creatinine Glucose POC Glucose 206 H 133 H Lactic Acid Calcium Ionized Calcium Alkaline Phosphatase Lactate Dehydrogenase CK-MB (CK-2) Troponin T C-Reactive Protein Total Protein Albumin LDL Cholesterol Direct Fluid Total Protein Salicylates 07/11/17 07/11/17 07/11/17 04:08 08:19 13:58 WBC RBC Hgb Hct MCV MCHC RDW Plt Count Lymph % (Auto) [place] % (Auto) Lymph # [place] # Seg Neutrophils % Seg Neuts % (Manual) Lymphocytes % (Manual) Seg Neutrophils # Seg Neutrophils # Man Lymphocytes # (Manual) POC ABG pH POC ABG pCO2 POC ABG pO2 Sodium Potassium Chloride Carbon Dioxide BUN 45 H Creatinine 3.1 H Glucose POC Glucose 155 H 199 H Lactic Acid Calcium 7.8 L Ionized Calcium Alkaline Phosphatase Lactate Dehydrogenase CK-MB (CK-2) Troponin T C-Reactive Protein Total Protein Albumin LDL Cholesterol Direct Fluid Total Protein Salicylates 07/11/17 07/11/17 07/12/17 17:52 23:39 04:37 WBC 12.9 H RBC 2.62 L Hgb 7.6 L Hct 24.0 L MCV MCHC RDW 16.0 H Plt Count Lymph % (Auto) 4.8 L [place] % (Auto) 8.6 H Lymph # 0.6 L [place] # 1.1 H Seg Neutrophils % 84.8 H Seg Neuts % (Manual) Lymphocytes % (Manual) Seg Neutrophils # 10.9 H Seg Neutrophils # Man Lymphocytes # (Manual) POC ABG pH POC ABG pCO2 POC ABG pO2 Sodium Potassium Chloride Carbon Dioxide BUN Creatinine Glucose POC Glucose 133 H 129 H Lactic Acid Calcium Ionized Calcium Alkaline Phosphatase Lactate Dehydrogenase CK-MB (CK-2) Troponin T C-Reactive Protein Total Protein Albumin LDL Cholesterol Direct Fluid Total Protein Salicylates 07/12/17 07/12/17 07/12/17 04:37 05:39 11:41 WBC RBC Hgb Hct MCV MCHC RDW Plt Count Lymph % (Auto) [place] % (Auto) Lymph # [place] # Seg Neutrophils % Seg Neuts % (Manual) Lymphocytes % (Manual) Seg Neutrophils # Seg Neutrophils # Man Lymphocytes # (Manual) POC ABG pH POC ABG pCO2 POC ABG pO2 Sodium Potassium Chloride Carbon Dioxide BUN 29 H Creatinine 2.1 H Glucose 137 H POC Glucose 149 H 203 H Lactic Acid Calcium 8.0 L Ionized Calcium Alkaline Phosphatase Lactate Dehydrogenase CK-MB (CK-2) Troponin T C-Reactive Protein Total Protein Albumin LDL Cholesterol Direct Fluid Total Protein Salicylates 07/13/17 07/13/17 07/13/17 04:46 05:35 12:14 WBC RBC Hgb Hct MCV MCHC RDW Plt Count Lymph % (Auto) [place] % (Auto) Lymph # [place] # Seg Neutrophils % Seg Neuts % (Manual) Lymphocytes % (Manual) Seg Neutrophils # Seg Neutrophils # Man Lymphocytes # (Manual) POC ABG pH POC ABG pCO2 POC ABG pO2 Sodium Potassium Chloride Carbon Dioxide BUN 46 H Creatinine 2.8 H Glucose 128 H POC Glucose 139 H 243 H Lactic Acid Calcium 7.5 L Ionized Calcium Alkaline Phosphatase Lactate Dehydrogenase CK-MB (CK-2) Troponin T C-Reactive Protein Total Protein Albumin LDL Cholesterol Direct Fluid Total Protein Salicylates 07/13/17 07/13/17 07/14/17 17:33 23:48 05:32 WBC RBC Hgb Hct MCV MCHC RDW Plt Count Lymph % (Auto) [place] % (Auto) Lymph # [place] # Seg Neutrophils % Seg Neuts % (Manual) Lymphocytes % (Manual) Seg Neutrophils # Seg Neutrophils # Man Lymphocytes # (Manual) POC ABG pH POC ABG pCO2 POC ABG pO2 Sodium Potassium Chloride Carbon Dioxide BUN Creatinine Glucose POC Glucose 193 H 133 H 143 H Lactic Acid Calcium Ionized Calcium Alkaline Phosphatase Lactate Dehydrogenase CK-MB (CK-2) Troponin T C-Reactive Protein Total Protein Albumin LDL Cholesterol Direct Fluid Total Protein Salicylates Allied health notes reviewed: RT
--- NOTE | 2017-07-14 09:46 | Progress Note ---
Assessment and Plan Cont present cardiac regimen. Cont supportive management. Plan for ischemic evaluation once medically stabilized. 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 Her pulmonary and nephrology Subjective Date of service: 07/14/17 Principal diagnosis: Acute Hypoxemic Resp Failure; S/P Cardiac Arrest; Hyperosmolar Non-ketotic Interval history: No apparent change from the cardiac standpoint. Objective Vital Signs Temp Pulse Pulse Pulse Resp Resp BP 07/14/17 09:24 93 H 121/65 07/14/17 09:23 93 H 121/65 07/14/17 08:30 96 H 14 137/72 07/14/17 08:16 90 14 07/14/17 08:15 92 H 11 L 145/81 07/14/17 08:08 93 H 17 07/14/17 08:06 94 H 21 131/71 07/14/17 08:00 86 96 H 12 135/72 07/14/17 07:59 86 135/72 07/14/17 07:45 87 12 135/72 07/14/17 07:30 90 12 133/72 07/14/17 07:15 95 H 12 144/84 07/14/17 07:00 97.5 F L 97 H 13 148/82 07/14/17 06:45 100 H 14 142/78 07/14/17 06:31 102 H 11 L 136/83 07/14/17 06:15 103 H 10 L 124/69 07/14/17 06:00 100 H 12 124/69 07/14/17 05:45 96 H 12 124/71 07/14/17 05:30 94 H 13 126/67 07/14/17 05:15 94 H 11 L 125/65 07/14/17 05:00 92 H 12 125/63 07/14/17 04:45 95 H 12 123/64 07/14/17 04:30 94 H 12 129/62 07/14/17 04:15 101 H 13 131/67 07/14/17 04:00 100 H 13 131/67 07/14/17 03:45 101 H 12 122/66 07/14/17 03:30 98 H 12 122/61 07/14/17 03:27 98.6 F 07/14/17 03:22 100 H 130/68 07/14/17 03:15 102 H 12 128/66 07/14/17 03:00 98 H 13 128/66 07/14/17 02:45 101 H 12 126/66 07/14/17 02:30 98 H 13 126/68 07/14/17 02:15 99 H 13 113/68 07/14/17 02:00 97 H 12 113/68 07/14/17 01:45 99 H 12 116/66 07/14/17 01:30 96 H 12 117/65 07/14/17 01:15 93 H 12 113/57 07/14/17 01:00 99 H 13 122/65 07/14/17 00:45 98 H 13 119/64 07/14/17 00:30 97 H 15 120/66 07/14/17 00:15 97 H 12 119/65 07/14/17 00:01 93 H 12 113/58 07/14/17 00:00 07/13/17 23:45 90 12 125/59 07/13/17 23:40 93 H 16 07/13/17 23:30 97 H 13 131/62 07/13/17 23:29 97 H 16 07/13/17 23:27 95 H 139/61 07/13/17 23:15 99 H 12 139/61 07/13/17 23:00 98.2 F 106 H 12 128/67 07/13/17 22:52 106 H 137/69 07/13/17 22:45 107 H 13 137/69 07/13/17 22:30 107 H 13 143/68 07/13/17 22:15 107 H 12 128/71 07/13/17 22:00 109 H 14 141/68 07/13/17 21:45 109 H 13 131/72 07/13/17 21:30 109 H 16 133/71 07/13/17 21:15 109 H 12 134/68 07/13/17 21:00 108 H 14 136/71 07/13/17 20:45 110 H 12 132/71 07/13/17 20:30 110 H 13 135/69 07/13/17 20:15 110 H 11 L 134/73 07/13/17 20:00 110 H 14 135/71 07/13/17 19:59 99 F 07/13/17 19:45 111 H 12 142/72 07/13/17 19:41 109 H 134/72 07/13/17 19:30 111 H 12 134/72 07/13/17 19:15 112 H 13 138/74 07/13/17 19:07 111 H 15 143/71 07/13/17 19:00 110 H 15 143/71 07/13/17 18:45 110 H 13 143/73 07/13/17 18:30 109 H 13 144/71 07/13/17 18:15 111 H 13 143/75 07/13/17 18:00 109 H 12 143/72 07/13/17 17:45 109 H 12 140/73 07/13/17 17:30 111 H 14 132/65 07/13/17 17:15 110 H 13 131/67 07/13/17 17:00 109 H 13 137/75 07/13/17 16:45 108 H 13 141/71 07/13/17 16:30 107 H 12 140/70 07/13/17 16:15 104 H 14 134/71 07/13/17 16:14 103 H 12 07/13/17 16:00 98.5 F 107 H 12 141/73 07/13/17 15:53 105 H 105 H 15 22 140/70 07/13/17 15:45 102 H 14 140/70 07/13/17 15:30 104 H 14 138/73 07/13/17 15:15 107 H 17 132/78 07/13/17 15:00 102 H 13 134/74 07/13/17 14:45 101 H 13 130/70 07/13/17 14:30 101 H 12 134/71 07/13/17 14:15 101 H 13 133/70 07/13/17 14:00 101 H 18 137/69 07/13/17 13:45 102 H 19 131/70 07/13/17 13:30 100 H 17 130/67 07/13/17 13:15 100 H 12 134/75 07/13/17 13:00 98.2 F 100 H 15 137/74 07/13/17 12:48 107 H 128/69 07/13/17 12:45 108 H 15 128/69 07/13/17 12:32 108 H 127/69 07/13/17 12:30 109 H 17 127/69 07/13/17 12:17 108 H 118/63 07/13/17 12:15 110 H 17 118/63 07/13/17 12:02 104 H 112/54 07/13/17 12:00 98.2 F 104 H 21 112/54 07/13/17 11:48 103 H 109/59 07/13/17 11:45 103 H 21 109/59 07/13/17 11:35 102 H 21 116/63 07/13/17 11:30 102 H 21 119/63 07/13/17 11:17 102 H 119/63 07/13/17 11:15 103 H 20 119/63 07/13/17 11:02 109 H 135/71 07/13/17 11:00 109 H 16 135/71 07/13/17 10:50 99 H 126/69 07/13/17 10:45 96 H 17 126/69 07/13/17 10:41 92 H 135/69 07/13/17 10:30 97 H 15 135/69 07/13/17 10:15 94 H 15 134/69 07/13/17 10:00 97.6 F 93 H 13 141/72 07/13/17 09:45 91 H 17 141/74 Pulse Ox 07/14/17 09:24 07/14/17 09:23 07/14/17 08:30 100 07/14/17 08:16 07/14/17 08:15 100 07/14/17 08:08 07/14/17 08:06 100 07/14/17 08:00 100 07/14/17 07:59 100 07/14/17 07:45 100 07/14/17 07:30 100 07/14/17 07:15 100 07/14/17 07:00 100 07/14/17 06:45 100 07/14/17 06:31 07/14/17 06:15 100 07/14/17 06:00 100 07/14/17 05:45 100 07/14/17 05:30 100 07/14/17 05:15 100 07/14/17 05:00 100 07/14/17 04:45 100 07/14/17 04:30 100 07/14/17 04:15 07/14/17 04:00 100 07/14/17 03:45 100 07/14/17 03:30 100 07/14/17 03:27 07/14/17 03:22 100 07/14/17 03:15 07/14/17 03:00 100 07/14/17 02:45 100 07/14/17 02:30 100 07/14/17 02:15 07/14/17 02:00 100 07/14/17 01:45 100 07/14/17 01:30 100 07/14/17 01:15 100 07/14/17 01:00 100 07/14/17 00:45 100 07/14/17 00:30 100 07/14/17 00:15 100 07/14/17 00:01 100 07/14/17 00:00 95 07/13/17 23:45 100 07/13/17 23:40 07/13/17 23:30 100 07/13/17 23:29 07/13/17 23:27 100 07/13/17 23:15 100 07/13/17 23:00 100 07/13/17 22:52 07/13/17 22:45 100 07/13/17 22:30 100 07/13/17 22:15 100 07/13/17 22:00 100 07/13/17 21:45 100 07/13/17 21:30 100 07/13/17 21:15 100 07/13/17 21:00 100 07/13/17 20:45 100 07/13/17 20:30 100 07/13/17 20:15 100 07/13/17 20:00 100 07/13/17 19:59 07/13/17 19:45 100 07/13/17 19:41 100 07/13/17 19:30 100 07/13/17 19:15 100 07/13/17 19:07 100 07/13/17 19:00 100 07/13/17 18:45 100 07/13/17 18:30 100 07/13/17 18:15 100 07/13/17 18:00 100 07/13/17 17:45 100 07/13/17 17:30 100 07/13/17 17:15 100 07/13/17 17:00 100 07/13/17 16:45 100 07/13/17 16:30 100 17 16:15 100 07/13/17 16:14 07/13/17 16:00 100 07/13/17 15:53 100 07/13/17 15:45 100 07/13/17 15:30 100 07/13/17 15:15 100 07/13/17 15:00 100 07/13/17 14:45 100 07/13/17 14:30 100 07/13/17 14:15 100 07/13/17 14:00 100 07/13/17 13:45 100 07/13/17 13:30 100 07/13/17 13:15 100 07/13/17 13:00 100 07/13/17 12:48 07/13/17 12:45 100 07/13/17 12:32 07/13/17 12:30 100 07/13/17 12:17 07/13/17 12:15 100 07/13/17 12:02 07/13/17 12:00 98 07/13/17 11:48 07/13/17 11:45 100 07/13/17 11:35 100 07/13/17 11:30 100 07/13/17 11:17 07/13/17 11:15 100 07/13/17 11:02 07/13/17 11:00 100 07/13/17 10:50 07/13/17 10:45 100 07/13/17 10:41 07/13/17 10:30 100 07/13/17 10:15 100 07/13/17 10:00 100 07/13/17 09:45 100 - Physical Examination General: Other (intubated, unresponsive) HEENT: Positive: PERRL Neck: Positive: neck supple Cardiac: Positive: Reg Rate and Rhythm Lungs: Positive: Decreased Breath Sounds Neuro: Positive: Other (intubated, unresponsive) Abdomen: Positive: Soft, Active Bowel Sounds Skin: Positive: Clear. Negative: Rash, Wound Musculoskeletal: No Fluid Collection, No Pain, Normal Range of Motion Extremities: Absent: edema - Imaging and Cardiology EKG: report reviewed, image reviewed Echo: report reviewed (06/27/2017 showed EF 50-55%, mild LVH, impaired relaxation , RA mildly dilated, mild MR, mild pulm HTN with RVSP 45mmHg, moderate pleural fluid) - EKG Sinus rhythms and dysrhythmias: sinus rhythm AV and intraventricular conduction: right bundle branch block - Allied health notes Allied health notes reviewed: RT
--- NOTE | 2017-07-14 09:53 | Progress Note ---
Assessment and Plan Assessment: 1) Shock after cardiac arrest (?cardiogenic ?hypovolemic ?septic): shock resolved. leukocytosis improving. Septic component etiology unclear ? colitis (CT abd negative). CRP=9 2) Seizures ? 3) DM-uncontrolled with DKA 4) ESRD on HD 5) Anemia still low Hg / thrombocytopenia resolved 6) Bloody Diarrhea versus melena ? colitis ?GI bleed. Hemo-occult + 7) Pleural effusion s/p thoracenthesis - transudate Plan: -continue flagyl IV/ PO day -contact isolation -remove rectal tube I will be covering the weekend Thank you Dr Moore for your consultation, will follow up with you. Laura Crocker MD Infectious Diseases Specialist [facility] ([facility]) M [phone] O [phone] Subjective Date of service: 07/14/17 Principal diagnosis: Acute Hypoxemic Resp Failure; S/P Cardiac Arrest; Hyperosmolar Non-ketotic Interval history: Remains on CPAP +T feeds + small amount black loose stools on flexiseal. Microbiology: Blood cultures: 07/02 ngtd Urine cultures: Respiratory cultures: 07/02 Sandra Pleural fluid 07/06: ngtd Current Antimicrobials: metronidazole 07/06 Previous Antimicrobials: Zosyn 07/02 Vanco 07/02 Objective - Exam Narrative Exam: General appearance: sedated on the vent Eyes: anicteric sclerae, moist conjunctivae; no lid-lag; PERRLA HENT: Atraumatic; oropharynx +ETT +NGT Neck: Trachea midline; supple, no thyromegaly or lymphadenopathy Lungs: CTA, CV: rrr Abdomen: Soft, non-tender Extremities: peripheral edema Skin: Normal temperature, turgor and texture; no rash, ulcers or subcutaneous nodules Psych: unable to eval . Neuro: unable to eval Lines: right IJ HD, condom cath - Constitutional Vitals: Vital Signs Temp Pulse Resp BP Pulse Ox 97.5 F L 93 H 14 121/65 100 07/14/17 07:00 07/14/17 09:24 07/14/17 08:30 07/14/17 09:24 07/14/17 08:30 Temperature -Last 24 Hours Temperature 97.5 F Temperature 98.6 F Temperature 98.2 F Temperature 99 F Temperature 98.5 F Temperature 98.2 F Temperature 98.2 F Temperature 97.6 F - Labs CBC & Chem 7: 07/12/17 04:37 07/13/17 04:46 Labs: Abnormal lab results 07/13/17 07/13/17 07/13/17 Range/Units 12:14 17:33 23:48 POC Glucose 243 H 193 H 133 H (70-105) 07/14/17 Range/Units 05:32 POC Glucose 143 H (70-105)
--- NOTE | 2017-07-14 10:35 | Consultation ---
History of Present Illness Consult date: 07/14/17 Reason for consult: other (evaluate for tracheostomy and PEG) - History of present illness History of present illness: This is a 76-year-old male who was admitted after having seizures at the senior care. Patient ultimately went into respiratory failure coinciding with a cardiac arrest. He was also found to be in DKA. As today the patient has been on the ventilator for approximately greater than 2 weeks. Surgery has been asked to consult on the patient for evaluation for placement of a tracheostomy and a feeding tube. Past History Past Medical History: diabetes, ESRD, hypertension Past Surgical History: Other (Permacath placement) Social history: single. denies: smoking, alcohol abuse Family history: no significant family history Medications and Allergies Allergies Allergy/AdvReac Type Severity Reaction Status Date / Time No Known Allergies Allergy Unverified 11/17/14 12:29 Home Medications Medication Instructions Recorded Confirmed Last Taken Type Aspirin EC [Aspirin Enteric Coated 81 mg PO QDAY #90 tablet. 11/19/14 Unknown Rx TAB] amLODIPine [Norvasc] 5 mg PO DAILY #90 tab 11/19/14 07/02/17 Unknown Rx Ascorbic Acid [Vitamin C] 500 mg PO DAILY 06/26/17 07/02/17 Unknown History Bisacodyl [Laxative] 5 mg PO DAILY 06/26/17 07/02/17 Unknown History Calcitriol [Rocaltrol] 0.25 mcg PO DAILY 06/26/17 07/02/17 Unknown History Carvedilol [Coreg] 12.5 mg PO BID 06/26/17 07/02/17 Unknown History Ferrous Sulfate [Feosol 325 MG tab] 325 mg PO BID 06/26/17 07/02/17 Unknown History Folic Acid [Folvite] 1 mg PO QDAY 06/26/17 07/02/17 Unknown History Insulin Lispro [Humalog 100 0 units SQ AC 06/26/17 07/02/17 Unknown History UNITS/ML Kwikpen] Multivitamin Tab W-MINERAL 1 each PO QD 06/26/17 07/02/17 Unknown History [Multiple Vitamin/Mineral (Theragran M)] Cephalexin [Keflex] 500 mg PO Q8HR 3 Days cap 06/28/17 07/02/17 Unknown Rx Insulin NPH/Regular [NovoLIN 70/30] 10 unit SUB-Q BIDDIAB 30 Days 06/28/1707/02 Unknown Rx units Active Meds: Active Medications Albuterol/Ipratropium (Duoneb *Not For Prn Use*) 1 ampul IH Q8HRT [facility] Last Admin: 07/14/17 08:08 Dose: 1 ampul Amlodipine Besylate (Norvasc) 10 mg PO DAILY [facility] Last Admin: 07/14/17 09:24 Dose: 10 mg Lipase/Protease/Amylase (Juan Porter 10,500 Unit) 1 each FEEDTUBE PRN PRN PRN Reason: For Clogged Feeding Tube Aspirin (Aspirin) 325 mg PO QDAY [facility] Last Admin: 07/14/17 09:24 Dose: 325 mg Bisacodyl (Dulcolax) 10 mg LA QDAY PRN PRN Reason: constipation unrelieved by MOM Calcitriol (Rocaltrol) 0.25 mcg PO DAILY [facility] Last Admin: 07/14/17 09:25 Dose: 0.25 mcg Carvedilol (Coreg) 12.5 mg PO BID [facility] Last Admin: 07/14/17 09:23 Dose: 12.5 mg Famotidine (Pepcid) 20 mg PO DAILY [facility] Last Admin: 07/14/17 09:23 Dose: 20 mg Folic Acid (Folvite) 1 mg PO QDAY [facility] Last Admin: 07/14/17 09:25 Dose: 1 mg Heparin Sodium (Porcine) (Heparin) 5,000 unit IV [place] PRN PRN Reason: hemodialysis Last Admin: 07/13/17 13:12 Dose: 5,000 unit Heparin Sodium (Porcine) (Heparin) 5,000 unit SUB-Q BID [facility] Last Admin: 07/14/17 09:25 Dose: 5,000 unit Hydralazine HCl (Apresoline) 10 mg IV Q6H PRN PRN Reason: SBP > 160 Last Admin: 07/06/17 21:47 Dose: 10 mg Hydrophilic Ointment (Vaseline Lip Therapy) 1 applic TP Q2HR PRN PRN Reason: Dry Lips Last Admin: 07/03/17 15:11 Dose: 1 applic Sodium Chloride (Nacl 0.9%) 100 mls @ 999 mls/hr IV [place] PRN PRN Reason: Hypotension Insulin Aspart (Novolog) 0 units SUB-Q Q6HR [place] PRN Reason: Protocol Last Admin: 07/14/17 06:47 Dose: Not Given Insulin Detemir (Levemir) 15 units SUB-Q QAMDIAB [facility] Last Admin: 07/14/17 09:22 Dose: 15 units Magnesium Hydroxide (Milk Of Magnesia) 30 ml PO Q4H PRN PRN Reason: Constipation Metronidazole (Flagyl) 500 mg PO Q8HR [facility] Last Admin: 07/14/17 06:46 Dose: 500 mg Multivitamins/Minerals (Theragran-M Tab) 1 each PO QDAY [facility] Last Admin: 07/14/17 09:24 Dose: 1 each Simple Syrup (Simple Syrup) 15 ml FEEDTUBE PRN PRN PRN Reason: Hypoglycemia Last Admin: 07/05/17 18:20 Dose: 15 ml Simple Syrup (Simple Syrup) 30 ml FEEDTUBE PRN PRN PRN Reason: Hypoglycemia Sodium Bicarbonate (Sodium Bicarbonate) 325 mg FEEDTUBE PRN PRN PRN Reason: For Clogged Feeding Tube Exam Vital Signs Pulse Resp BP Pulse Ox 85 16 141/72 96 07/02/17 15:00 07/02/17 15:00 07/02/17 15:00 07/02/17 15:00 - General physical appearance Positive: no distress - Neck Positive: trachea midline - Respiratory Positive: normal respiratory effort (FiO2 28% PEEP of 5) - Cardiovascular Rhythm: regular - Abdomen Abdomen: Present: soft. Absent: tender, distended - Neurologic Neurologic: other (patient remains obtunded) Results - Labs 07/12/17 04:37 07/13/17 04:46 Abnormal lab results 07/13/17 07/13/17 07/13/17 Range/Units 12:14 17:33 23:48 POC Glucose 243 H 193 H 133 H (70-105) 07/14/17 Range/Units 05:32 POC Glucose 143 H (70-105) Assessment and Plan Respiratory failure, PA, DKA, prolonged vent dependence, malnutrition. The patient is to criteria for tracheostomy and PEG placement. Continue supportive care. We'll attempt to contact the family for consent for the procedure. Plan schedule surgery afterwards. Thank you For allowing us to participate in the treatment of this patient.
--- NOTE | 2017-07-14 14:10 | Progress Note ---
Subjective Principal diagnosis: Acute Hypoxemic Resp Failure; S/P Cardiac Arrest; Hyperosmolar Non-ketotic Interval history: Patient was seen today for follow-up on multiple renal-related issues remains on ventilator poorly responsive Events of 24 hours, interdisciplinary notes were also reviewed Lab results were reviewed Social history: Reviewed Medication: Reviewed Family history: Reviewed Allergies: Reviewed Physical examination General; no acute distress HEENT: Mild pallor no icterus oral mucosa moist Neck: Supple soft no jugular venous distention Chest: Bilateral clear to auscultation anteriorly posteriorly a few faint basilar crackles at the lung bases no wheezes Cardiovascular: S1-S2 heart no S3-S4 Abdomen: Soft nontender no voluntary guarding rigidity rebound no organomegaly no masses no suprapubic fullness no CVA tenderness Extremity: Minimal edema dry skin no tenderness in the Area Derm: Dry skin Assessment and plan End-stage renal disease patient is currently on maintenance hemodialysis on Sunday, judicious ultrafiltration possibly may require IV fluid Patient does require labs pressure will be ordered today Anemia in end-stage renal disease on Procrit already Respiratory failure currently intubated admitted with cardiac arrest and shock 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 Loose stools: Discontinue iron tablets Status post thoracentesis noted to have pleural effusion Mortality risk high prognosis very poor Continue with supportive care for now We'll continue to follow and make recommendation from renal standpoint Objective - Vital Signs Vital signs: Vital Signs - 12hr 07/14/17 07/14/17 07/14/17 02:15 02:30 02:45 Temperature Pulse Rate 99 H 98 H 101 H Pulse Rate [ Anterior Bilateral Throughout] Pulse Rate [ From Monitor] Respiratory 13 13 12 Rate Respiratory Rate [Anterior Bilateral Throughout] Blood Pressure 113/68 126/68 126/66 O2 Sat by Pulse 100 100 Oximetry 07/14/17 07/14/17 07/14/17 03:00 03:15 03:22 Temperature Pulse Rate 98 H 102 H 100 H Pulse Rate [ Anterior Bilateral Throughout] Pulse Rate [ From Monitor] Respiratory 13 12 Rate Respiratory Rate [Anterior Bilateral Throughout] Blood Pressure 128/66 128/66 130/68 O2 Sat by Pulse 100 100 Oximetry 07/14/17 07/14/17 07/14/17 03:27 03:30 03:45 Temperature 98.6 F Pulse Rate 98 H 101 H Pulse Rate [ Anterior Bilateral Throughout] Pulse Rate [ From Monitor] Respiratory 12 12 Rate Respiratory Rate [Anterior Bilateral Throughout] Blood Pressure 122/61 122/66 O2 Sat by Pulse 100 100 Oximetry 07/14/17 07/14/17 07/14/17 04:00 04:15 04:30 Temperature Pulse Rate 100 H 101 H 94 H Pulse Rate [ Anterior Bilateral Throughout] Pulse Rate [ From Monitor] Respiratory 13 13 12 Rate Respiratory Rate [Anterior Bilateral Throughout] Blood Pressure 131/67 131/67 129/62 O2 Sat by Pulse 100 100 Oximetry 07/14/17 07/14/17 07/14/17 04:45 05:00 05:15 Temperature Pulse Rate 95 H 92 H 94 H Pulse Rate [ Anterior Bilateral Throughout] Pulse Rate [ From Monitor] Respiratory 12 12 11 L Rate Respiratory Rate [Anterior Bilateral Throughout] Blood Pressure 123/64 125/63 125/65 O2 Sat by Pulse 100 100 100 Oximetry 07/14/17 07/14/17 07/14/17 05:30 05:45 06:00 Temperature Pulse Rate 94 H 96 H 100 H Pulse Rate [ Anterior Bilateral Throughout] Pulse Rate [ From Monitor] Respiratory 13 12 12 Rate Respiratory Rate [Anterior Bilateral Throughout] Blood Pressure 126/67 124/71 124/69 O2 Sat by Pulse 100 100 100 Oximetry 07/14/17 07/14/17 07/14/17 06:15 06:31 06:45 Temperature Pulse Rate 103 H 102 H 100 H Pulse Rate [ Anterior Bilateral Throughout] Pulse Rate [ From Monitor] Respiratory 10 L 11 L 14 Rate Respiratory Rate [Anterior Bilateral Throughout] Blood Pressure 124/69 136/83 142/78 O2 Sat by Pulse 100 100 Oximetry 07/14/17 07/14/17 07/14/17 07:00 07:15 07:30 Temperature 97.5 F L Pulse Rate 97 H 95 H 90 Pulse Rate [ Anterior Bilateral Throughout] Pulse Rate [ From Monitor] Respiratory 13 12 12 Rate Respiratory Rate [Anterior Bilateral Throughout] Blood Pressure 148/82 144/84 133/72 O2 Sat by Pulse 100 100 100 Oximetry 07/14/17 07/14/17 07/14/17 07:45 07:59 08:00 Temperature Pulse Rate 87 86 86 Pulse Rate [ Anterior Bilateral Throughout] Pulse Rate [ 96 H From Monitor] Respiratory 12 12 Rate Respiratory Rate [Anterior Bilateral Throughout] Blood Pressure 135/72 135/72 135/72 O2 Sat by Pulse 100 100 100 Oximetry 07/14/17 07/14/17 07/14/17 08:06 08:08 08:15 Temperature Pulse Rate 94 H 92 H Pulse Rate [ 93 H Anterior Bilateral Throughout] Pulse Rate [ From Monitor] Respiratory 21 11 L Rate Respiratory 17 Rate [Anterior Bilateral Throughout] Blood Pressure 131/71 145/81 O2 Sat by Pulse 100 100 Oximetry 07/14/17 07/14/17 07/14/17 08:16 08:30 09:23 Temperature Pulse Rate 96 H 93 H Pulse Rate [ 90 Anterior Bilateral Throughout] Pulse Rate [ From Monitor] Respiratory 14 Rate Respiratory 14 Rate [Anterior Bilateral Throughout] Blood Pressure 137/72 121/65 O2 Sat by Pulse 100 Oximetry 07/14/17 07/14/17 07/14/17 09:24 11:00 13:05 Temperature 97.3 F L Pulse Rate 93 H 81 Pulse Rate [ Anterior Bilateral Throughout] Pulse Rate [ From Monitor] Respiratory 12 Rate Respiratory Rate [Anterior Bilateral Throughout] Blood Pressure 121/65 105/58 O2 Sat by Pulse 100 Oximetry - Lab 07/15/17 14:49 07/15/17 12:52 Most recent lab results Calcium 7.5 mg/dL (8.4-10.2) L 07/13/17 04:46 Phosphorus 3.80 mg/dL (2.5-4.5) 07/04/17 14:10 Magnesium 1.80 mg/dL (1.7-2.3) 07/04/17 14:10
--- NOTE | 2017-07-14 15:11 | Progress Note ---
Assessment and Plan Assessment and plan: Anoxic brain injury Status post cardiac arrest Seizure disorder Sepsis with hypotension History of diarrhea DKA with diabetic coma ESRD on HD - Patient is intubated and on mechanical ventilation, off sedation - Finished antibiotics - ESRD on HD - Patient was treated according to DKA protocol now resolved and on long-acting insulin DVT prophylaxis - Heparin Disposition - Patient would have trach on Sunday - Continue ICU care The high probability of a clinically significant, sudden or life threatening deterioration of the [CV, neurology, renal] system(s) required my full and direct attention, intervention and personal management. The aggregate critical care time was [32] minutes. This time is in addition to time spent performing reported procedures but includes the following: [x] Data Review and interpretation [x] Patient assessment and monitoring of vital signs [x] Documentation [x] Medication orders and management History Interval history: Patient was seen and evaluated this morning, patient in non communicative. Patient is off sedation. His 2 sons were in the room and I have discussed with the management plan extensively. Hospitalist Physical - Physical exam Narrative exam: Patient is intubated and on mechanical ventilation. The patient appeared well nourished and normally developed. Vital signs as documented. Head exam is unremarkable. No scleral icterus . Neck is without jugular venous distension, thyromegaly, or carotid bruits. Lungs are clear to auscultation. Cardiac exam reveals regular rate and Rhythm. First and second heart sounds normal. No murmurs, rubs or gallops. Abdominal exam reveals normal bowel sounds, no masses, no organomegaly and no aortic enlargement. Extremities are nonedematous and both femoral and pedal pulses are normal. 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 He is off sedation. - Constitutional Vitals: Temp Pulse Resp BP Pulse Ox 97.3 F L 93 H 13 129/75 100 07/14/17 11:00 07/14/17 14:45 07/14/17 14:45 07/14/17 14:45 07/14/17 14:45 General appearance: Present: mild distress, other (intubated, unresponsive) Results - Labs CBC & Chem 7: 07/12/17 04:37 07/13/17 04:46 Labs: Laboratory Last Values WBC 12.9 K/mm3 (4.5-11.0) H 07/12/17 04:37 RBC 2.62 M/mm3 (3.65-5.03) L 07/12/17 04:37 Hgb 7.6 gm/dl (11.8-15.2) L 07/12/17 04:37 Hct 24.0 % (35.5-45.6) L 07/12/17 04:37 MCV 92 fl (84-94) 07/12/17 04:37 MCH 29 pg (28-32) 07/12/17 04:37 MCHC 32 % (32-34) 07/12/17 04:37 RDW 16.0 % (13.2-15.2) H 07/12/17 04:37 Plt Count 204 K/mm3 (140-440) 07/12/17 04:37 Lymph % (Auto) 4.8 % (13.4-35.0) L 07/12/17 04:37 [place] % (Auto) 8.6 % (0.0-7.3) H 07/12/17 04:37 Eos % (Auto) 1.5 % (0.0-4.3) 07/12/17 04:37 Baso % (Auto) 0.3 % (0.0-1.8) 07/12/17 04:37 Lymph # 0.6 K/mm3 (1.2-5.4) L 07/12/17 04:37 [place] # 1.1 K/mm3 (0.0-0.8) H 07/12/17 04:37 Eos # 0.2 K/mm3 (0.0-0.4) 07/12/17 04:37 Baso # 0.0 K/mm3 (0.0-0.1) 07/12/17 04:37 Add Manual Diff Complete 07/05/17 Unknown Total Counted 100 07/05/17 Unknown Seg Neutrophils % 84.8 % (40.0-70.0) H 07/12/17 04:37 Seg Neuts % (Manual) 89.0 % (40.0-70.0) H 07/05/17 Unknown Band Neutrophils % 1.0 % 07/05/17 Unknown Lymphocytes % (Manual) 7.0 % (13.4-35.0) L 07/05/17 Unknown Reactive Lymphs % (Man) 0 % 07/05/17 Unknown Monocytes % (Manual) 3.0 % (0.0-7.3) 07/05/17 Unknown Eosinophils % (Manual) 0 % (0.0-4.3) 07/05/17 Unknown Basophils % (Manual) 0 % (0.0-1.8) 07/05/17 Unknown Metamyelocytes % 0 % 07/05/17 Unknown Myelocytes % 0 % 07/05/17 Unknown Promyelocytes % 0 % 07/05/17 Unknown Blast Cells % 0 % 07/05/17 Unknown Nucleated RBC % Not Reportable 07/05/17 Unknown Seg Neutrophils # 10.9 K/mm3 (1.8-7.7) H 07/12/17 04:37 Seg Neutrophils # Man 19.8 K/mm3 (1.8-7.7) H 07/05/17 Unknown Band Neutrophils # 0.2 K/mm3 07/05/17 Unknown Lymphocytes # (Manual) 1.6 K/mm3 (1.2-5.4) 07/05/17 Unknown Abs React Lymphs (Man) 0.0 K/mm3 07/05/17 Unknown Monocytes # (Manual) 0.7 K/mm3 (0.0-0.8) 07/05/17 Unknown Eosinophils # (Manual) 0.0 K/mm3 (0.0-0.4) 07/05/17 Unknown Basophils # (Manual) 0.0 K/mm3 (0.0-0.1) 07/05/17 Unknown Metamyelocytes # 0.0 K/mm3 07/05/17 Unknown Myelocytes # 0.0 K/mm3 07/05/17 Unknown Promyelocytes # 0.0 K/mm3 07/05/17 Unknown Blast Cells # 0.0 K/mm3 07/05/17 Unknown WBC Morphology Not Reportable 07/05/17 Unknown Hypersegmented Neuts Not Reportable 07/05/17 Unknown Hyposegmented Neuts Not Reportable 07/05/17 Unknown Hypogranular Neuts Not Reportable 07/05/17 Unknown Smudge Cells Not Reportable 07/05/17 Unknown Toxic Granulation Not Reportable 07/05/17 Unknown Toxic Vacuolation Not Reportable 07/05/17 Unknown Dohle Bodies Not Reportable 07/05/17 Unknown Pelger-Huet Anomaly Not Reportable 07/05/17 Unknown [place] Rods Not Reportable 07/05/17 Unknown Platelet Estimate Appears decreased 07/05/17 Unknown Clumped Platelets Not Reportable 07/05/17 Unknown Plt Clumps, EDTA Not Reportable 07/05/17 Unknown Large Platelets Not Reportable 07/05/17 Unknown Giant Platelets Not Reportable 07/05/17 Unknown Platelet Satelliting Not Reportable 07/05/17 Unknown Plt Morphology Comment Not Reportable 07/05/17 Unknown RBC Morphology Not Reportable 07/05/17 Unknown Dimorphic RBCs Not Reportable 07/05/17 Unknown Polychromasia Not Reportable 07/05/17 Unknown Hypochromasia Not Reportable 07/05/17 Unknown Poikilocytosis 1+ 07/05/17 Unknown Anisocytosis 1+ 07/05/17 Unknown Microcytosis Few 07/05/17 Unknown Macrocytosis Not Reportable 07/05/17 Unknown Spherocytes Not Reportable 07/05/17 Unknown Pappenheimer Bodies Not Reportable 07/05/17 Unknown Sickle Cells Not Reportable 07/05/17 Unknown Target Cells Not Reportable 07/05/17 Unknown Tear Drop Cells Not Reportable 07/05/17 Unknown Ovalocytes Not Reportable 07/05/17 Unknown Helmet Cells Not Reportable 07/05/17 Unknown Kim-Beverly Bodies Not Reportable 07/05/17 Unknown [place] Rings Not Reportable 07/05/17 Unknown [place] Cells Not Reportable 07/05/17 Unknown Bite Cells Not Reportable 07/05/17 Unknown Crenated Cell Not Reportable 07/05/17 Unknown Elliptocytes Not Reportable 07/05/17 Unknown Acanthocytes (Spur) Not Reportable 07/05/17 Unknown Rouleaux Not Reportable 07/05/17 Unknown Hemoglobin C Crystals Not Reportable 07/05/17 Unknown Schistocytes Not Reportable 07/05/17 Unknown Malaria parasites Not Reportable 07/05/17 Unknown Morales Bodies Not Reportable 07/05/17 Unknown Hem Pathologist Commnt No 07/05/17 Unknown PT 12.9 Sec. (12.2-14.9) 07/06/17 08:30 INR 0.93 (0.87-1.13) 07/06/17 08:30 Heparin Anti-Xa, Unfract Negative (Negative) 07/10/17 10:07 POC ABG pH 7.448 (7.35-7.45) 07/10/17 14:14 POC ABG pCO2 39.1 (35-45) 07/10/17 14:14 POC ABG pO2 138 (80-105) H 07/10/17 14:14 POC ABG HCO3 27.0 07/10/17 14:14 POC ABG Total CO2 28 07/10/17 14:14 POC ABG O2 Sat 99 07/10/17 14:14 POC ABG Base Excess 3 07/10/17 14:14 FiO2 28 % 07/10/17 14:14 Sodium 139 mmol/L (137-145) 07/13/17 04:46 Potassium 4.0 mmol/L (3.6-5.0) 07/13/17 04:46 Chloride 100.9 mmol/L (98-107) 07/13/17 04:46 Carbon Dioxide 28 mmol/L (22-30) 07/13/17 04:46 Anion Gap 14 mmol/L 07/13/17 04:46 BUN 46 mg/dL (9-20) H 07/13/17 04:46 Creatinine 2.8 mg/dL (0.8-1.5) H 07/13/17 04:46 Estimated GFR 27 ml/min 07/13/17 04:46 BUN/Creatinine Ratio 16 % 07/13/17 04:46 Glucose 128 mg/dL (75-100) H 07/13/17 04:46 POC Glucose 143 (70-105) H 07/14/17 11:43 Osmolality 357 Mosm/kg 07/02/17 15:35 Lactic Acid 2.30 mmol/L (0.7-2.0) H* 07/05/17 Unknown Calcium 7.5 mg/dL (8.4-10.2) L 07/13/17 04:46 Ionized Calcium 4.6 mg/dL (4.8-5.6) L 07/04/17 14:10 Phosphorus 3.80 mg/dL (2.5-4.5) 07/04/17 14:10 Magnesium 1.80 mg/dL (1.7-2.3) 07/04/17 14:10 Total Bilirubin 0.40 mg/dL (0.1-1.2) 07/02/17 Unknown AST 31 units/L (5-40) 07/02/17 Unknown ALT 23 units/L (7-56) 07/02/17 Unknown Alkaline Phosphatase 139 units/L (35-129) H 07/02/17 Unknown Lactate Dehydrogenase 880 units/L (91-180) H 07/06/17 08:30 Total Creatine Kinase 58 units/L (55-170) 07/05/17 12:40 CK-MB (CK-2) 1.8 ng/mL (0.0-4.0) 07/05/17 12:40 CK-MB (CK-2) Rel Index 3.1 (0-4) 07/05/17 12:40 Troponin T 0.277 ng/mL (0.00-0.029) H* 07/05/17 12:40 C-Reactive Protein 9.90 mg/dL (0.00-1.30) H 07/05/17 Unknown Total Protein 4.9 g/dL (6.3-8.2) L 07/06/17 08:30 Albumin 3.3 g/dL (3.9-5) L 07/02/17 Unknown Albumin/Globulin Ratio 1.2 % 07/02/17 Unknown Triglycerides 83 mg/dL (2-149) 07/04/17 14:10 Cholesterol 83 mg/dL (50-199) 07/04/17 14:10 LDL Cholesterol Direct 22 mg/dL (50-130) L 07/04/17 14:10 HDL Cholesterol 45 mg/dL (40-59) 07/04/17 14:10 Cholesterol/HDL Ratio 1.84 % 07/04/17 14:10 TSH 3.200 mlU/mL (0.270-4.200) 07/02/17 Unknown Urine Color Yellow (Yellow) 07/02/17 17:25 Urine Turbidity Clear (Clear) 07/02/17 17:25 Urine pH 5.0 (5.0-7.0) 07/02/17 17:25 Ur Specific [place] 1.018 (1.003-1.030) 07/02/17 17:25 Urine Protein 100 mg/dl mg/dL (Negative) 07/02/17 17:25 Urine Glucose (UA) >=500 mg/dL (Negative) 07/02/17 17:25 Urine Ketones Neg mg/dL (Negative) 07/02/17 17:25 Urine Blood Sm (Negative) 07/02/17 17:25 Urine Nitrite Neg (Negative) 07/02/17 17:25 Urine Bilirubin Neg (Negative) 07/02/17 17:25 Urine Urobilinogen < 2.0 mg/dL (<2.0) 07/02/17 17:25 Ur Leukocyte Esterase Neg (Negative) 07/02/17 17:25 Urine WBC (Auto) 1.0 /HPF (0.0-6.0) 07/02/17 17:25 Urine RBC (Auto) 2.0 /HPF (0.0-6.0) 07/02/17 17:25 U Epithel Cells (Auto) 1.0 /HPF (0-13.0) 07/02/17 17:25 Fluid Type Pleural 07/06/17 16:53 Fluid Color Yellow 07/06/17 16:53 Fluid Appearance Clear 07/06/17 16:53 Fluid WBC 9 /mm3 07/06/17 16:53 Fluid RBC 6 /mm3 07/06/17 16:53 Fluid Seg Neutrophils 51.2 % 07/06/17 16:53 Fluid Lymphocytes 43.9 % 07/06/17 16:53 Fluid Reactive Lymphs 0 % 07/06/17 16:53 Fluid Monocytes 4.9 % 07/06/17 16:53 Fluid Eosinophils 0 % 07/06/17 16:53 Fluid Basophils 0 % 07/06/17 16:53 Fluid Total Protein < 3.0 (15.0-45.0) L 07/06/17 Unknown Fluid LDH 132 07/06/17 Unknown Fluid Comment 07/06/17 16:53 Salicylates < 0.3 mg/dL (2.8-20.0) L 07/02/17 Unknown Urine Opiates Screen Presumptive negative 07/02/17 17:25 Urine Methadone Screen Presumptive negative 07/02/17 17:25 Acetaminophen < 15.0 ug/mL (10.0-30.0) 07/02/17 Unknown Ur Barbiturates Screen Presumptive negative 07/02/17 17:25 Ur Phencyclidine Scrn Presumptive negative 07/02/17 17:25 Ur Amphetamines Screen Presumptive negative 07/02/17 17:25 U Benzodiazepines Scrn Presumptive negative 07/02/17 17:25 Urine Cocaine Screen Presumptive negative 07/02/17 17:25 U Marijuana (THC) Screen Presumptive negative 07/02/17 17:25 Drugs of Abuse Note Disclamer 07/02/17 17:25 Plasma/Serum Alcohol < 0.01 gm% (0-0.07) 07/02/17 Unknown Heparin-induced Plt Ab Negative (Negative) 07/10/17 10:07 UF Heparin High Dose 0 % Release 07/10/17 10:07 TREVOR UFH Low Dose 0.1 0 % Release 07/10/17 10:07 TREVOR UFH Low Dose 0.5 0 % Release 07/10/17 10:07
[2017-07-15] MEDS: DUONEB *Not for PRN Use IH SCH ×3 (00:44→16:57)
[2017-07-15] MEDS: FLAGYL PO SCH ×2 (06:52→14:21)
[2017-07-15] MEDS: NOVOLOG SUB-Q SCH ×3 (06:53→18:18)
[2017-07-15] MEDS: LEVEMIR SUB-Q SCH (08:15)
--- NOTE | 2017-07-15 08:55 | Progress Note ---
Assessment and Plan Cont present cardiac regimen. Cont supportive management. Plan for ischemic evaluation once medically stabilized. New additional cardiac recommendations at this time. Per pulmonary and nephrology Subjective Date of service: 07/15/17 Principal diagnosis: Acute Hypoxemic Resp Failure; S/P Cardiac Arrest; Hyperosmolar Non-ketotic Interval history: No apparent change from the cardiac standpoint. remains intubated mech vent Objective Vital Signs Temp Pulse Pulse Pulse Resp Resp BP 07/15/17 08:15 94 H 10 L 130/67 07/15/17 08:00 89 12 114/72 07/15/17 07:54 93 H 16 07/15/17 07:46 93 H 13 07/15/17 07:45 93 H 9 L 123/71 07/15/17 07:42 87 12 122/68 07/15/17 07:30 89 14 122/68 07/15/17 07:15 89 15 122/64 07/15/17 07:00 97.3 F L 93 H 13 127/67 07/15/17 06:45 89 15 113/61 07/15/17 06:30 96 H 12 131/72 07/15/17 06:15 95 H 14 128/70 07/15/17 06:00 97 H 16 129/70 07/15/17 05:45 97 H 14 126/70 07/15/17 05:30 97 H 10 L 128/75 07/15/17 05:15 97 H 10 L 132/72 07/15/17 05:00 98 H 11 L 134/77 07/15/17 04:45 98 H 15 131/74 07/15/17 04:30 96 H 15 132/73 07/15/17 04:15 99 H 13 137/71 07/15/17 04:01 100 H 18 126/71 07/15/17 03:49 97 H 118/66 07/15/17 03:45 96 H 16 116/64 07/15/17 03:30 96 H 16 118/66 07/15/17 03:29 98.5 F 07/15/17 03:15 99 H 12 126/71 07/15/17 03:00 97 H 12 117/62 07/15/17 02:45 98 H 13 123/70 07/15/17 02:30 98 H 16 115/61 07/15/17 02:15 96 H 16 116/64 07/15/17 02:00 98 H 15 108/64 07/15/17 01:45 100 H 13 115/61 07/15/17 01:30 90 15 116/58 07/15/17 01:15 94 H 12 107/62 07/15/17 01:01 89 13 111/66 07/15/17 00:50 93 H 12 07/15/17 00:45 96 H 12 101/63 07/15/17 00:40 97 H 12 07/15/17 00:30 90 10 L 110/57 07/15/17 00:16 96 H 116/63 07/15/17 00:15 98 H 11 L 111/67 07/15/17 00:00 98 H 11 L 116/63 07/14/17 23:45 98 H 10 L 124/67 07/14/17 23:44 98.4 F 07/14/17 23:30 105 H 16 129/67 07/14/17 23:21 104 H 149/69 07/14/17 23:15 108 H 11 L 149/69 07/14/17 23:00 106 H 14 139/63 07/14/17 22:45 106 H 13 138/73 07/14/17 22:30 103 H 11 L 135/74 07/14/17 22:15 103 H 17 131/67 07/14/17 22:00 97 H 11 L 140/76 07/14/17 21:45 104 H 14 133/64 07/14/17 21:30 104 H 12 138/69 07/14/17 21:15 104 H 11 L 139/72 07/14/17 21:06 104 H 137/71 07/14/17 21:00 104 H 16 137/71 07/14/17 20:45 106 H 13 139/76 07/14/17 20:33 104 H 11 L 137/72 07/14/17 20:30 104 H 15 137/72 07/14/17 20:18 103 H 13 144/78 07/14/17 20:15 101 H 13 144/78 07/14/17 20:00 103 H 87 12 132/69 07/14/17 19:59 98.7 F 07/14/17 19:45 103 H 16 137/67 07/14/17 19:30 102 H 17 142/78 11/25/17 19:15 102 H 16 138/69 07/14/17 19:00 100 H 11 L 145/75 07/14/17 18:45 102 H 10 L 135/65 07/14/17 18:30 100 H 15 137/75 07/14/17 18:15 100 H 10 L 143/78 07/14/17 18:00 98 H 13 139/79 07/14/17 17:54 95 H 124/66 07/14/17 17:45 93 H 11 L 124/66 07/14/17 17:30 89 12 119/64 07/14/17 17:15 89 9 L 116/63 07/14/17 17:01 91 H 12 118/58 07/14/17 16:45 88 12 120/66 07/14/17 16:30 88 12 113/56 07/14/17 16:15 87 12 125/64 07/14/17 16:00 94 H 87 10 L 145/79 07/14/17 15:45 95 H 11 L 128/72 07/14/17 15:32 89 12 07/14/17 15:30 88 8 L 134/74 07/14/17 15:24 87 12 07/14/17 15:23 85 12 117/62 07/14/17 15:15 87 12 117/62 07/14/17 15:00 97.3 F L 91 H 12 127/66 07/14/17 14:45 93 H 13 129/75 07/14/17 14:30 91 H 13 124/70 07/14/17 14:15 89 12 120/69 07/14/17 14:00 87 12 118/71 07/14/17 13:45 85 12 123/68 07/14/17 13:30 83 12 113/64 07/14/17 13:15 80 12 109/63 07/14/17 13:05 81 12 105/58 07/14/17 13:00 81 12 105/58 07/14/17 12:45 80 12 103/60 07/14/17 12:30 81 12 103/56 07/14/17 12:15 85 11 L 108/63 07/14/17 12:00 89 85 14 107/61 07/14/17 11:45 87 12 102/61 07/14/17 11:30 87 12 103/61 07/14/17 11:15 89 12 106/63 07/14/17 11:00 97.3 F L 88 12 105/61 07/14/17 10:45 89 12 104/63 07/14/17 10:31 92 H 12 109/63 07/14/17 10:15 91 H 12 124/64 07/14/17 10:00 93 H 12 125/71 07/14/17 09:45 92 H 12 126/65 07/14/17 09:30 94 H 10 L 132/74 07/14/17 09:24 93 H 121/65 07/14/17 09:23 93 H 121/65 07/14/17 09:15 93 H 12 121/65 07/14/17 09:00 95 H 12 123/74 Pulse Ox 07/15/17 08:15 100 07/15/17 08:00 100 07/15/17 07:54 07/15/17 07:46 07/15/17 07:45 100 07/15/17 07:42 100 07/15/17 07:30 100 07/15/17 07:15 100 07/15/17 07:00 100 07/15/17 06:45 100 07/15/17 06:30 100 07/15/17 06:15 100 07/15/17 06:00 100 07/15/17 05:45 100 07/15/17 05:30 100 07/15/17 05:15 100 07/15/17 05:00 100 07/15/17 04:45 100 07/15/17 04:30 100 07/15/17 04:15 07/15/17 04:01 100 07/15/17 03:49 100 07/15/17 03:45 100 07/15/17 03:30 100 07/15/17 03:29 07/15/17 03:15 100 07/15/17 03:00 100 07/15/17 02:45 100 07/15/17 02:30 100 07/15/17 02:15 100 07/15/17 02:00 100 07/15/17 01:45 100 07/15/17 01:30 100 07/15/17 01:15 100 07/15/17 01:01 100 07/15/17 00:50 07/15/17 00:45 100 07/15/17 00:40 07/15/17 00:30 100 07/15/17 00:16 100 07/15/17 00:15 100 07/15/17 00:00 100 07/14/17 23:45 100 07/14/17 23:44 07/14/17 23:30 100 07/14/17 23:21 07/14/17 23:15 100 07/14/17 23:00 100 07/14/17 22:45 100 07/14/17 22:30 100 07/14/17 22:15 100 07/14/17 22:00 100 07/14/17 21:45 100 07/14/17 21:30 100 07/14/17 21:15 100 07/14/17 21:06 100 07/14/17 21:00 100 07/14/17 20:45 100 07/14/17 20:33 100 07/14/17 20:30 100 07/14/17 20:18 100 07/14/17 20:15 100 07/14/17 20:00 100 07/14/17 19:59 07/14/17 19:45 100 07/14/17 19:30 100 07/14/17 19:15 100 07/14/17 19:00 100 07/14/17 18:45 100 07/14/17 18:30 100 07/14/17 18:15 100 07/14/17 18:00 100 07/14/17 17:54 100 07/14/17 17:45 100 07/14/17 17:30 07/14/17 17:15 100 07/14/17 17:01 100 07/14/17 16:45 100 07/14/17 16:30 100 07/14/17 16:15 100 07/14/17 16:00 100 07/14/17 15:45 100 07/14/17 15:32 07/14/17 15:30 100 07/14/17 15:24 07/14/17 15:23 100 07/14/17 15:15 100 07/14/17 15:00 100 07/14/17 14:45 100 07/14/17 14:30 100 07/14/17 14:15 100 07/14/17 14:00 100 07/14/17 13:45 100 07/14/17 13:30 100 07/14/17 13:15 100 07/14/17 13:05 100 07/14/17 13:00 100 07/14/17 12:45 100 07/14/17 12:30 100 07/14/17 12:15 100 07/14/17 12:00 99 07/14/17 11:45 100 07/14/17 11:30 100 07/14/17 11:15 100 07/14/17 11:00 100 07/14/17 10:45 100 07/14/17 10:31 100 07/14/17 10:15 100 07/14/17 10:00 100 07/14/17 09:45 100 07/14/17 09:30 100 07/14/17 09:24 07/14/17 09:23 07/14/17 09:15 100 07/14/17 09:00 100 - Physical Examination General: Other (intubated, unresponsive) HEENT: Positive: PERRL Neck: Positive: neck supple Cardiac: Positive: Reg Rate and Rhythm Lungs: Positive: Decreased Breath Sounds Neuro: Positive: Other (intubated, unresponsive) Abdomen: Positive: Soft, Active Bowel Sounds Skin: Positive: Clear. Negative: Rash, Wound Musculoskeletal: No Fluid Collection, No Pain, Normal Range of Motion Extremities: Absent: edema - Imaging and Cardiology EKG: report reviewed, image reviewed Echo: report reviewed (06/27/2017 showed EF 50-55%, mild LVH, impaired relaxation , RA mildly dilated, mild MR, mild pulm HTN with RVSP 45mmHg, moderate pleural fluid) - EKG Sinus rhythms and dysrhythmias: sinus rhythm AV and intraventricular conduction: right bundle branch block - Allied health notes Allied health notes reviewed: RT
[2017-07-15] MEDS: ROCALTROL PO SCH (10:30)
[2017-07-15] MEDS: PEPCID PO SCH (10:30)
[2017-07-15] MEDS: NORVASC PO SCH (10:31)
[2017-07-15] MEDS: ASPIRIN PO SCH (10:32)
[2017-07-15] MEDS: HEPARIN SUB-Q SCH ×2 (10:33→21:12)
[2017-07-15] MEDS: THERAGRAN-M Tab PO SCH (10:33)
--- NOTE | 2017-07-15 10:39 | Progress Note ---
Subjective Principal diagnosis: Acute Hypoxemic Resp Failure; S/P Cardiac Arrest; Hyperosmolar Non-ketotic Interval history: Patient was seen today for follow-up, on many renal related issues patient remains ventilator dependent Currently on hemodialysis Sunday and Sunday Interdisciplinary notes were reviewed Vitals labs intake and output medications were reviewed from today Allergies: Reviewed Social history: Reviewed Family history: Reviewed Physical examination HEENT: Oral mucosa moist no pharyngeal erythema,orally intubated Neck: Supple no JVD Chest: Clear to auscultation no crackles rales or wheezes Heart: Regular rate and rhythm S1-S2 heard no S3-S4 Abdomen: Soft nontender no renal bruit no CVA tenderness no suprapubic fullness Extremity: Mild edema dry skin no peripheral cyanosis pulses palpable Neurological: Alert awake Musculoskeletal: No joint effusion noted Assessment and plan End-stage renal disease patient is currently on maintenance hemodialysis on Sunday,judicious ultrafiltration depending upon intake and output may need IV fluid with dialysis Patient does require labs pressure will be ordered today Anemia in end-stage renal disease on Procrit already Respiratory failure currently intubated admitted with cardiac arrest and shock 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 Loose stools: Discontinue iron tablets Status post thoracentesis noted to have pleural effusion Mortality risk high prognosis very poor Continue with supportive care for now Will continue to follow and make recommendation from renal standpoint Objective - Vital Signs Vital signs: Vital Signs - 12hr 07/14/17 07/14/17 07/14/17 22:45 23:00 23:15 Temperature Pulse Rate 106 H 106 H 108 H Pulse Rate [ Anterior Bilateral Throughout] Pulse Rate [ From Monitor] Respiratory 13 14 11 L Rate Respiratory Rate [Anterior Bilateral Throughout] Blood Pressure 138/73 139/63 149/69 O2 Sat by Pulse 100 100 100 Oximetry 07/14/17 07/14/17 07/14/17 23:21 23:30 23:44 Temperature 98.4 F Pulse Rate 104 H 105 H Pulse Rate [ Anterior Bilateral Throughout] Pulse Rate [ From Monitor] Respiratory 16 Rate Respiratory Rate [Anterior Bilateral Throughout] Blood Pressure 149/69 129/67 O2 Sat by Pulse 100 Oximetry 07/14/17 07/15/17 07/15/17 23:45 00:00 00:15 Temperature Pulse Rate 98 H 98 H 98 H Pulse Rate [ Anterior Bilateral Throughout] Pulse Rate [ From Monitor] Respiratory 10 L 11 L 11 L Rate Respiratory Rate [Anterior Bilateral Throughout] Blood Pressure 124/67 116/63 111/67 O2 Sat by Pulse 100 100 100 Oximetry 07/15/17 07/15/17 07/15/17 00:16 00:30 00:40 Temperature Pulse Rate 96 H 90 Pulse Rate [ 97 H Anterior Bilateral Throughout] Pulse Rate [ From Monitor] Respiratory 10 L Rate Respiratory 12 Rate [Anterior Bilateral Throughout] Blood Pressure 116/63 110/57 O2 Sat by Pulse 100 100 Oximetry 07/15/17 07/15/17 07/15/17 00:45 00:50 01:01 Temperature Pulse Rate 96 H 89 Pulse Rate [ 93 H Anterior Bilateral Throughout] Pulse Rate [ From Monitor] Respiratory 12 13 Rate Respiratory 12 Rate [Anterior Bilateral Throughout] Blood Pressure 101/63 111/66 O2 Sat by Pulse 100 100 Oximetry 07/15/17 07/15/17 07/15/17 01:15 01:30 01:45 Temperature Pulse Rate 94 H 90 100 H Pulse Rate [ Anterior Bilateral Throughout] Pulse Rate [ From Monitor] Respiratory 12 15 13 Rate Respiratory Rate [Anterior Bilateral Throughout] Blood Pressure 107/62 116/58 115/61 O2 Sat by Pulse 100 100 100 Oximetry 07/15/17 07/15/17 07/15/17 02:00 02:15 02:30 Temperature Pulse Rate 98 H 96 H 98 H Pulse Rate [ Anterior Bilateral Throughout] Pulse Rate [ From Monitor] Respiratory 15 16 16 Rate Respiratory Rate [Anterior Bilateral Throughout] Blood Pressure 108/64 116/64 115/61 O2 Sat by Pulse 100 100 100 Oximetry 07/15/17 07/15/17 07/15/17 02:45 03:00 03:15 Temperature Pulse Rate 98 H 97 H 99 H Pulse Rate [ Anterior Bilateral Throughout] Pulse Rate [ From Monitor] Respiratory 13 12 12 Rate Respiratory Rate [Anterior Bilateral Throughout] Blood Pressure 123/70 117/62 126/71 O2 Sat by Pulse 100 100 100 Oximetry 07/15/17 07/15/17 07/15/17 03:29 03:30 03:45 Temperature 98.5 F Pulse Rate 96 H 96 H Pulse Rate [ Anterior Bilateral Throughout] Pulse Rate [ From Monitor] Respiratory 16 16 Rate Respiratory Rate [Anterior Bilateral Throughout] Blood Pressure 118/66 116/64 O2 Sat by Pulse 100 100 Oximetry 07/15/17 07/15/17 07/15/17 03:49 04:01 04:15 Temperature Pulse Rate 97 H 100 H 99 H Pulse Rate [ Anterior Bilateral Throughout] Pulse Rate [ From Monitor] Respiratory 18 13 Rate Respiratory Rate [Anterior Bilateral Throughout] Blood Pressure 118/66 126/71 137/71 O2 Sat by Pulse 100 100 Oximetry 07/15/17 07/15/17 07/15/17 04:30 04:45 05:00 Temperature Pulse Rate 96 H 98 H 98 H Pulse Rate [ Anterior Bilateral Throughout] Pulse Rate [ From Monitor] Respiratory 15 15 11 L Rate Respiratory Rate [Anterior Bilateral Throughout] Blood Pressure 132/73 131/74 134/77 O2 Sat by Pulse 100 100 100 Oximetry 07/15/17 07/15/17 07/15/17 05:15 05:30 05:45 Temperature Pulse Rate 97 H 97 H 97 H Pulse Rate [ Anterior Bilateral Throughout] Pulse Rate [ From Monitor] Respiratory 10 L 10 L 14 Rate Respiratory Rate [Anterior Bilateral Throughout] Blood Pressure 132/72 128/75 126/70 O2 Sat by Pulse 100 100 100 Oximetry 07/15/17 07/15/17 07/15/17 06:00 06:15 06:30 Temperature Pulse Rate 97 H 95 H 96 H Pulse Rate [ Anterior Bilateral Throughout] Pulse Rate [ From Monitor] Respiratory 16 14 12 Rate Respiratory Rate [Anterior Bilateral Throughout] Blood Pressure 129/70 128/70 131/72 O2 Sat by Pulse 100 100 100 Oximetry 07/15/17 07/15/17 07/15/17 06:45 07:00 07:15 Temperature 97.3 F L Pulse Rate 89 93 H 89 Pulse Rate [ Anterior Bilateral Throughout] Pulse Rate [ From Monitor] Respiratory 15 13 15 Rate Respiratory Rate [Anterior Bilateral Throughout] Blood Pressure 113/61 127/67 122/64 O2 Sat by Pulse 100 100 100 Oximetry 07/15/17 07/15/17 07/15/17 07:30 07:42 07:45 Temperature Pulse Rate 89 87 93 H Pulse Rate [ Anterior Bilateral Throughout] Pulse Rate [ From Monitor] Respiratory 14 12 9 L Rate Respiratory Rate [Anterior Bilateral Throughout] Blood Pressure 122/68 122/68 123/71 O2 Sat by Pulse 100 100 100 Oximetry 07/15/17 07/15/17 07/15/17 07:46 07:54 08:00 Temperature Pulse Rate 89 Pulse Rate [ 93 H 93 H Anterior Bilateral Throughout] Pulse Rate [ 88 From Monitor] Respiratory 12 Rate Respiratory 13 16 Rate [Anterior Bilateral Throughout] Blood Pressure 114/72 O2 Sat by Pulse 100 Oximetry 07/15/17 07/15/17 07/15/17 08:15 08:30 08:45 Temperature Pulse Rate 94 H 98 H 97 H Pulse Rate [ Anterior Bilateral Throughout] Pulse Rate [ From Monitor] Respiratory 10 L 11 L 14 Rate Respiratory Rate [Anterior Bilateral Throughout] Blood Pressure 130/67 127/69 135/70 O2 Sat by Pulse 100 100 100 Oximetry 07/15/17 07/15/17 07/15/17 09:00 09:15 09:31 Temperature Pulse Rate 99 H 99 H 98 H Pulse Rate [ Anterior Bilateral Throughout] Pulse Rate [ From Monitor] Respiratory 12 13 11 L Rate Respiratory Rate [Anterior Bilateral Throughout] Blood Pressure 136/74 136/74 136/74 O2 Sat by Pulse 100 100 100 Oximetry 07/15/17 07/15/17 07/15/17 09:45 10:00 10:31 Temperature Pulse Rate 96 H 98 H 95 H Pulse Rate [ Anterior Bilateral Throughout] Pulse Rate [ From Monitor] Respiratory 11 L 13 Rate Respiratory Rate [Anterior Bilateral Throughout] Blood Pressure 135/70 132/69 132/69 O2 Sat by Pulse 100 100 Oximetry - Lab 07/15/17 14:49 07/15/17 12:52 Most recent lab results Calcium 7.5 mg/dL (8.4-10.2) L 07/13/17 04:46 Phosphorus 3.80 mg/dL (2.5-4.5) 07/04/17 14:10 Magnesium 1.80 mg/dL (1.7-2.3) 07/04/17 14:10
[2017-07-15] MEDS: FOLVITE PO SCH (10:42)
[2017-07-15] MEDS: COREG PO SCH ×2 (10:42→21:11)
--- NOTE | 2017-07-15 11:36 | Progress Note ---
Assessment and Plan Acute Hypoxemic Respiratory Failure on MVS Seizure Disorder s/p Cardiac Arrest ESRD on Dialysis Sepsis Syndrome Hyperosmolar non ketotic state Anemia Leucocytosis(improving) Acute Encephalopathy - lung protective strategies -VAP bundle addressed -Continue enteric feeding -Continue SBT and SAT trials - Continue aspiration precautions - Continue to wean FiO2 for sats > 94% - bronchodilators and pulmonary toilet - Continue empiric AB's per ID - continue glycemic control with insulin infusion (target BG <180mg/dl) - GI & VTE prophylaxis -Patient is Full code in the event of cardiopulmonary arrest Prognosis----Guarded -Plan for tracheostomy and PEG early this week - Continue other care per attending / other consultants Subjective Date of service: 07/15/17 Principal diagnosis: Acute Hypoxemic Resp Failure; S/P Cardiac Arrest; Hyperosmolar Non-ketotic Interval history: Patient is seen today for: Acute Hypoxemic Resp Failure; S/P Cardiac Arrest; Hyperosmolar Non-ketotic Seen and examined at bedside; 24hour events reviewed; nursing and respiratory care staff consulted; no adverse overnight events reported to me; remains on MVS ; AMS is persistent though he is tolerating weaning trials well; No emesis or overt aspiration reported Objective - Exam Narrative Exam: Patient is intubated and on mechanical ventilation. The patient appeared chronically ill looking and normally developed. Vital signs as documented. Head exam is unremarkable. No scleral icterus . Neck is without jugular venous distension, thyromegaly, or carotid bruits. Lungs are clear to auscultation. Cardiac exam reveals regular rate and Rhythm. First and second heart sounds normal. No murmurs, rubs or gallops. Abdominal exam reveals normal bowel sounds, no masses, no organomegaly and no aortic enlargement. Extremities are non edematous and both femoral and pedal pulses are normal. PACKAGER: Patient is comatose. He is off sedation. Vital Signs - 12hr 07/14/17 07/14/17 07/15/17 23:44 23:45 00:00 Temperature 98.4 F Pulse Rate 98 H 98 H Pulse Rate [ Anterior Bilateral Throughout] Pulse Rate [ From Monitor] Respiratory 10 L 11 L Rate Respiratory Rate [Anterior Bilateral Throughout] Blood Pressure 124/67 116/63 O2 Sat by Pulse 100 100 Oximetry 07/15/17 07/15/17 07/15/17 00:15 00:16 00:30 Temperature Pulse Rate 98 H 96 H 90 Pulse Rate [ Anterior Bilateral Throughout] Pulse Rate [ From Monitor] Respiratory 11 L 10 L Rate Respiratory Rate [Anterior Bilateral Throughout] Blood Pressure 111/67 116/63 110/57 O2 Sat by Pulse 100 100 100 Oximetry 07/15/17 07/15/17 07/15/17 00:40 00:45 00:50 Temperature Pulse Rate 96 H Pulse Rate [ 97 H 93 H Anterior Bilateral Throughout] Pulse Rate [ From Monitor] Respiratory 12 Rate Respiratory 12 12 Rate [Anterior Bilateral Throughout] Blood Pressure 101/63 O2 Sat by Pulse 100 Oximetry 07/15/17 07/15/17 07/15/17 01:01 01:15 01:30 Temperature Pulse Rate 89 94 H 90 Pulse Rate [ Anterior Bilateral Throughout] Pulse Rate [ From Monitor] Respiratory 13 12 15 Rate Respiratory Rate [Anterior Bilateral Throughout] Blood Pressure 111/66 107/62 116/58 O2 Sat by Pulse 100 100 100 Oximetry 07/15/17 07/15/17 07/15/17 01:45 02:00 02:15 Temperature Pulse Rate 100 H 98 H 96 H Pulse Rate [ Anterior Bilateral Throughout] Pulse Rate [ From Monitor] Respiratory 13 15 16 Rate Respiratory Rate [Anterior Bilateral Throughout] Blood Pressure 115/61 108/64 116/64 O2 Sat by Pulse 100 100 100 Oximetry 07/15/17 07/15/17 07/15/17 02:30 02:45 03:00 Temperature Pulse Rate 98 H 98 H 97 H Pulse Rate [ Anterior Bilateral Throughout] Pulse Rate [ From Monitor] Respiratory 16 13 12 Rate Respiratory Rate [Anterior Bilateral Throughout] Blood Pressure 115/61 123/70 117/62 O2 Sat by Pulse 100 100 100 Oximetry 07/15/17 07/15/17 07/15/17 03:15 03:29 03:30 Temperature 98.5 F Pulse Rate 99 H 96 H Pulse Rate [ Anterior Bilateral Throughout] Pulse Rate [ From Monitor] Respiratory 12 16 Rate Respiratory Rate [Anterior Bilateral Throughout] Blood Pressure 126/71 118/66 O2 Sat by Pulse 100 100 Oximetry 07/15/17 07/15/17 07/15/17 03:45 03:49 04:01 Temperature Pulse Rate 96 H 97 H 100 H Pulse Rate [ Anterior Bilateral Throughout] Pulse Rate [ From Monitor] Respiratory 16 18 Rate Respiratory Rate [Anterior Bilateral Throughout] Blood Pressure 116/64 118/66 126/71 O2 Sat by Pulse 100 100 100 Oximetry 07/15/17 07/15/17 07/15/17 04:15 04:30 04:45 Temperature Pulse Rate 99 H 96 H 98 H Pulse Rate [ Anterior Bilateral Throughout] Pulse Rate [ From Monitor] Respiratory 13 15 15 Rate Respiratory Rate [Anterior Bilateral Throughout] Blood Pressure 137/71 132/73 131/74 O2 Sat by Pulse 100 100 Oximetry 07/15/17 07/15/17 07/15/17 05:00 05:15 05:30 Temperature Pulse Rate 98 H 97 H 97 H Pulse Rate [ Anterior Bilateral Throughout] Pulse Rate [ From Monitor] Respiratory 11 L 10 L 10 L Rate Respiratory Rate [Anterior Bilateral Throughout] Blood Pressure 134/77 132/72 128/75 O2 Sat by Pulse 100 100 100 Oximetry 07/15/17 07/15/17 07/15/17 05:45 06:00 06:15 Temperature Pulse Rate 97 H 97 H 95 H Pulse Rate [ Anterior Bilateral Throughout] Pulse Rate [ From Monitor] Respiratory 14 16 14 Rate Respiratory Rate [Anterior Bilateral Throughout] Blood Pressure 126/70 129/70 128/70 O2 Sat by Pulse 100 100 100 Oximetry 07/15/17 07/15/17 07/15/17 06:30 06:45 07:00 Temperature 97.3 F L Pulse Rate 96 H 89 93 H Pulse Rate [ Anterior Bilateral Throughout] Pulse Rate [ From Monitor] Respiratory 12 15 13 Rate Respiratory Rate [Anterior Bilateral Throughout] Blood Pressure 131/72 113/61 127/67 O2 Sat by Pulse 100 100 100 Oximetry 07/15/17 07/15/17 07/15/17 07:15 07:30 07:42 Temperature Pulse Rate 89 89 87 Pulse Rate [ Anterior Bilateral Throughout] Pulse Rate [ From Monitor] Respiratory 15 14 12 Rate Respiratory Rate [Anterior Bilateral Throughout] Blood Pressure 122/64 122/68 122/68 O2 Sat by Pulse 100 100 100 Oximetry 07/15/17 07/15/17 07/15/17 07:45 07:46 07:54 Temperature Pulse Rate 93 H Pulse Rate [ 93 H 93 H Anterior Bilateral Throughout] Pulse Rate [ From Monitor] Respiratory 9 L Rate Respiratory 13 16 Rate [Anterior Bilateral Throughout] Blood Pressure 123/71 O2 Sat by Pulse 100 Oximetry 07/15/17 07/15/17 07/15/17 08:00 08:15 08:30 Temperature Pulse Rate 89 94 H 98 H Pulse Rate [ Anterior Bilateral Throughout] Pulse Rate [ 88 From Monitor] Respiratory 12 10 L 11 L Rate Respiratory Rate [Anterior Bilateral Throughout] Blood Pressure 114/72 130/67 127/69 O2 Sat by Pulse 100 100 100 Oximetry 07/15/17 07/15/17 07/15/17 08:45 09:00 09:15 Temperature Pulse Rate 97 H 99 H 99 H Pulse Rate [ Anterior Bilateral Throughout] Pulse Rate [ From Monitor] Respiratory 14 12 13 Rate Respiratory Rate [Anterior Bilateral Throughout] Blood Pressure 135/70 136/74 136/74 O2 Sat by Pulse 100 100 100 Oximetry 07/15/17 07/15/17 07/15/17 09:31 09:45 10:00 Temperature Pulse Rate 98 H 96 H 98 H Pulse Rate [ Anterior Bilateral Throughout] Pulse Rate [ From Monitor] Respiratory 11 L 11 L 13 Rate Respiratory Rate [Anterior Bilateral Throughout] Blood Pressure 136/74 135/70 132/69 O2 Sat by Pulse 100 100 100 Oximetry 07/15/17 07/15/17 07/15/17 10:31 10:42 11:12 Temperature Pulse Rate 95 H 93 H 93 H Pulse Rate [ Anterior Bilateral Throughout] Pulse Rate [ From Monitor] Respiratory 16 Rate Respiratory Rate [Anterior Bilateral Throughout] Blood Pressure 132/69 132/69 131/72 O2 Sat by Pulse 100 Oximetry Constitutional: no acute distress, lethargic Eyes: non-icteric ENT: oropharynx moist, other (ETT at 20cm TIKI) Neck: supple, no lymphadenopathy, JVD, other (no thyromegally) Effort: mildly labored Ascultation: Bilateral: diminished breath sounds (bases), rales Percussion: Right: dull (base), Bilateral: not dull Cardiovascular: regular rate and rhythm, other (no rubs / murmurs) Gastrointestinal: normoactive bowel sounds, soft, non-tender, non-distended, other (no HSM) Integumentary: normal Extremities: no cyanosis, no edema, pulses normal, no ischemia or petechiae Neurologic: normal mental status, non-focal exam, pupils equal and round, other (no spontaneous limb movements) Psychiatric: other (unable to assess) CBC and BMP: 07/12/17 04:37 07/13/17 04:46 ABG, PT/INR, D-dimer: ABG POC ABG pH 7.448 (7.35-7.45) 07/10/17 14:14 POC ABG pCO2 39.1 (35-45) 07/10/17 14:14 POC ABG pO2 138 (80-105) H 07/10/17 14:14 POC ABG HCO3 27.0 07/10/17 14:14 POC ABG Total CO2 28 07/10/17 14:14 POC ABG O2 Sat 99 07/10/17 14:14 PT/INR, D-dimer PT 12.9 Sec. (12.2-14.9) 07/06/17 08:30 INR 0.93 (0.87-1.13) 07/06/17 08:30 Abnormal lab findings: Abnormal Labs 07/02/17 07/02/17 07/02/17 15:03 15:12 17:49 WBC 13.5 H RBC 3.47 L Hgb 9.9 L Hct 33.1 L MCV 96 H MCHC 30 L RDW 15.4 H Plt Count 130 L Lymph % (Auto) [place] % (Auto) Lymph # [place] # Seg Neutrophils % Seg Neuts % (Manual) 95.0 H Lymphocytes % (Manual) 3.0 L Seg Neutrophils # Seg Neutrophils # Man 12.8 H Lymphocytes # (Manual) 0.4 L POC ABG pH POC ABG pCO2 POC ABG pO2 Sodium Potassium Chloride Carbon Dioxide BUN Creatinine Glucose POC Glucose > 500 H Lactic Acid 7.80 H* Calcium Ionized Calcium Alkaline Phosphatase Lactate Dehydrogenase CK-MB (CK-2) Troponin T C-Reactive Protein Total Protein Albumin LDL Cholesterol Direct Fluid Total Protein Salicylates 07/02/17 07/02/17 07/02/17 20:29 21:31 23:38 WBC RBC Hgb Hct MCV MCHC RDW Plt Count Lymph % (Auto) [place] % (Auto) Lymph # [place] # Seg Neutrophils % Seg Neuts % (Manual) Lymphocytes % (Manual) Seg Neutrophils # Seg Neutrophils # Man Lymphocytes # (Manual) POC ABG pH POC ABG pCO2 POC ABG pO2 Sodium 129 L 132 L Potassium Chloride 87.2 L 93.7 L Carbon Dioxide 18 L 15 L BUN 51 H 47 H Creatinine 4.3 H 4.1 H Glucose 950 H* 825 H* POC Glucose Lactic Acid 5.70 H* Calcium 7.1 L 6.8 L Ionized Calcium Alkaline Phosphatase Lactate Dehydrogenase CK-MB (CK-2) Troponin T C-Reactive Protein Total Protein Albumin LDL Cholesterol Direct Fluid Total Protein Salicylates 07/02/17 07/02/17 07/02/17 23:38 23:44 Unknown WBC RBC Hgb Hct MCV MCHC RDW Plt Count Lymph % (Auto) [place] % (Auto) Lymph # [place] # Seg Neutrophils % Seg Neuts % (Manual) Lymphocytes % (Manual) Seg Neutrophils # Seg Neutrophils # Man Lymphocytes # (Manual) POC ABG pH POC ABG pCO2 POC ABG pO2 Sodium 132 L 125 L D Potassium Chloride 94.6 L 85.6 L Carbon Dioxide 17 L 19 L D BUN 51 H 50 H Creatinine 4.1 H 4.4 H D Glucose 772 H* 1113 H* POC Glucose > 500 H Lactic Acid Calcium 6.7 L 7.2 L Ionized Calcium Alkaline Phosphatase 139 H Lactate Dehydrogenase CK-MB (CK-2) Troponin T C-Reactive Protein Total Protein 6.1 L Albumin 3.3 L LDL Cholesterol Direct Fluid Total Protein Salicylates 07/02/17 07/02/17 07/03/17 Unknown Unknown 01:00 WBC RBC Hgb Hct MCV MCHC RDW Plt Count Lymph % (Auto) [place] % (Auto) Lymph # [place] # Seg Neutrophils % Seg Neuts % (Manual) Lymphocytes % (Manual) Seg Neutrophils # Seg Neutrophils # Man Lymphocytes # (Manual) POC ABG pH POC ABG pCO2 POC ABG pO2 Sodium 134 L Potassium Chloride 96.4 L Carbon Dioxide 19 L BUN 50 H Creatinine 4.0 H Glucose 677 H* POC Glucose Lactic Acid 6.30 H* Calcium 6.6 L Ionized Calcium Alkaline Phosphatase Lactate Dehydrogenase CK-MB (CK-2) Troponin T C-Reactive Protein Total Protein Albumin LDL Cholesterol Direct Fluid Total Protein Salicylates < 0.3 L 07/03/17 07/03/17 07/03/17 01:04 02:15 02:15 WBC RBC Hgb Hct MCV MCHC RDW Plt Count Lymph % (Auto) [place] % (Auto) Lymph # [place] # Seg Neutrophils % Seg Neuts % (Manual) Lymphocytes % (Manual) Seg Neutrophils # Seg Neutrophils # Man Lymphocytes # (Manual) POC ABG pH POC ABG pCO2 POC ABG pO2 Sodium 134 L Potassium Chloride 97.6 L Carbon Dioxide 19 L BUN 50 H Creatinine 4.2 H Glucose 592 H* POC Glucose > 500 H Lactic Acid 4.30 H* Calcium 6.6 L Ionized Calcium Alkaline Phosphatase Lactate Dehydrogenase CK-MB (CK-2) Troponin T C-Reactive Protein Total Protein Albumin LDL Cholesterol Direct Fluid Total Protein Salicylates 07/03/17 07/03/17 07/03/17 02:21 03:25 04:10 WBC RBC Hgb Hct MCV MCHC RDW Plt Count Lymph % (Auto) [place] % (Auto) Lymph # [place] # Seg Neutrophils % Seg Neuts % (Manual) Lymphocytes % (Manual) Seg Neutrophils # Seg Neutrophils # Man Lymphocytes # (Manual) POC ABG pH POC ABG pCO2 POC ABG pO2 Sodium Potassium Chloride Carbon Dioxide 19 L BUN 50 H Creatinine 4.0 H Glucose 416 H POC Glucose 482 H > 500 H Lactic Acid Calcium 6.8 L Ionized Calcium Alkaline Phosphatase Lactate Dehydrogenase CK-MB (CK-2) Troponin T C-Reactive Protein Total Protein Albumin LDL Cholesterol Direct Fluid Total Protein Salicylates 07/03/17 07/03/17 07/03/17 04:30 04:36 05:33 WBC RBC Hgb Hct MCV MCHC RDW Plt Count Lymph % (Auto) [place] % (Auto) Lymph # [place] # Seg Neutrophils % Seg Neuts % (Manual) Lymphocytes % (Manual) Seg Neutrophils # Seg Neutrophils # Man Lymphocytes # (Manual) POC ABG pH 7.311 L POC ABG pCO2 33.5 L POC ABG pO2 73 L Sodium Potassium Chloride Carbon Dioxide BUN Creatinine Glucose POC Glucose 389 H 326 H Lactic Acid Calcium Ionized Calcium Alkaline Phosphatase Lactate Dehydrogenase CK-MB (CK-2) Troponin T C-Reactive Protein Total Protein Albumin LDL Cholesterol Direct Fluid Total Protein Salicylates 07/03/17 07/03/17 07/03/17 06:06 07:38 09:58 WBC RBC Hgb Hct MCV MCHC RDW Plt Count Lymph % (Auto) [place] % (Auto) Lymph # [place] # Seg Neutrophils % Seg Neuts % (Manual) Lymphocytes % (Manual) Seg Neutrophils # Seg Neutrophils # Man Lymphocytes # (Manual) POC ABG pH POC ABG pCO2 POC ABG pO2 Sodium Potassium Chloride Carbon Dioxide BUN Creatinine Glucose POC Glucose 247 H 118 H 52 L Lactic Acid Calcium Ionized Calcium Alkaline Phosphatase Lactate Dehydrogenase CK-MB (CK-2) Troponin T C-Reactive Protein Total Protein Albumin LDL Cholesterol Direct Fluid Total Protein Salicylates 07/03/17 07/03/17 07/03/17 11:00 13:16 15:02 WBC RBC Hgb Hct MCV MCHC RDW Plt Count Lymph % (Auto) [place] % (Auto) Lymph # [place] # Seg Neutrophils % Seg Neuts % (Manual) Lymphocytes % (Manual) Seg Neutrophils # Seg Neutrophils # Man Lymphocytes # (Manual) POC ABG pH POC ABG pCO2 POC ABG pO2 Sodium Potassium Chloride Carbon Dioxide BUN Creatinine Glucose POC Glucose 64 L 112 H 158 H Lactic Acid Calcium Ionized Calcium Alkaline Phosphatase Lactate Dehydrogenase CK-MB (CK-2) Troponin T C-Reactive Protein Total Protein Albumin LDL Cholesterol Direct Fluid Total Protein Salicylates 07/03/17 07/03/17 07/03/17 18:17 Unknown Unknown WBC RBC Hgb Hct MCV MCHC RDW Plt Count Lymph % (Auto) [place] % (Auto) Lymph # [place] # Seg Neutrophils % Seg Neuts % (Manual) Lymphocytes % (Manual) Seg Neutrophils # Seg Neutrophils # Man Lymphocytes # (Manual) POC ABG pH POC ABG pCO2 POC ABG pO2 Sodium Potassium Chloride Carbon Dioxide BUN Creatinine Glucose POC Glucose 131 H Lactic Acid 2.40 H* Calcium Ionized Calcium Alkaline Phosphatase Lactate Dehydrogenase CK-MB (CK-2) Troponin T C-Reactive Protein 1.90 H Total Protein Albumin LDL Cholesterol Direct Fluid Total Protein Salicylates 07/03/17 07/04/17 07/04/17 Unknown 00:13 02:04 WBC RBC Hgb Hct MCV MCHC RDW Plt Count Lymph % (Auto) [place] % (Auto) Lymph # [place] # Seg Neutrophils % Seg Neuts % (Manual) Lymphocytes % (Manual) Seg Neutrophils # Seg Neutrophils # Man Lymphocytes # (Manual) POC ABG pH POC ABG pCO2 POC ABG pO2 Sodium Potassium Chloride Carbon Dioxide BUN 52 H Creatinine 4.3 H Glucose POC Glucose 69 L 111 H Lactic Acid Calcium 7.2 L Ionized Calcium Alkaline Phosphatase Lactate Dehydrogenase CK-MB (CK-2) Troponin T C-Reactive Protein Total Protein Albumin LDL Cholesterol Direct Fluid Total Protein Salicylates 07/04/17 07/04/17 07/04/17 04:38 08:00 08:00 WBC 28.3 H RBC 3.55 L Hgb 10.3 L Hct 31.2 L MCV MCHC RDW 15.3 H Plt Count 101 L Lymph % (Auto) [place] % (Auto) Lymph # [place] # Seg Neutrophils % Seg Neuts % (Manual) Lymphocytes % (Manual) Seg Neutrophils # Seg Neutrophils # Man Lymphocytes # (Manual) POC ABG pH POC ABG pCO2 27.6 L POC ABG pO2 Sodium Potassium Chloride Carbon Dioxide 20 L BUN 62 H Creatinine 4.7 H Glucose POC Glucose Lactic Acid Calcium 7.0 L Ionized Calcium Alkaline Phosphatase Lactate Dehydrogenase CK-MB (CK-2) Troponin T C-Reactive Protein Total Protein Albumin LDL Cholesterol Direct Fluid Total Protein Salicylates 07/04/17 07/04/17 07/04/17 14:10 14:10 14:33 WBC RBC Hgb Hct MCV MCHC RDW Plt Count Lymph % (Auto) [place] % (Auto) Lymph # [place] # Seg Neutrophils % Seg Neuts % (Manual) Lymphocytes % (Manual) Seg Neutrophils # Seg Neutrophils # Man Lymphocytes # (Manual) POC ABG pH 7.474 H POC ABG pCO2 29.4 L POC ABG pO2 Sodium Potassium Chloride Carbon Dioxide BUN Creatinine Glucose POC Glucose Lactic Acid Calcium Ionized Calcium 4.6 L Alkaline Phosphatase Lactate Dehydrogenase CK-MB (CK-2) 4.3 H Troponin T 0.282 H* C-Reactive Protein Total Protein Albumin LDL Cholesterol Direct 22 L Fluid Total Protein Salicylates 07/04/17 07/04/17 07/04/17 17:26 20:40 23:34 WBC RBC Hgb Hct MCV MCHC RDW Plt Count Lymph % (Auto) [place] % (Auto) Lymph # [place] # Seg Neutrophils % Seg Neuts % (Manual) Lymphocytes % (Manual) Seg Neutrophils # Seg Neutrophils # Man Lymphocytes # (Manual) POC ABG pH POC ABG pCO2 POC ABG pO2 Sodium Potassium Chloride Carbon Dioxide BUN Creatinine Glucose POC Glucose 201 H 188 H Lactic Acid Calcium Ionized Calcium Alkaline Phosphatase Lactate Dehydrogenase CK-MB (CK-2) Troponin T 0.276 H* C-Reactive Protein Total Protein Albumin LDL Cholesterol Direct Fluid Total Protein Salicylates 07/05/17 07/05/17 07/05/17 05:42 07:50 11:52 WBC RBC Hgb Hct MCV MCHC RDW Plt Count Lymph % (Auto) [place] % (Auto) Lymph # [place] # Seg Neutrophils % Seg Neuts % (Manual) Lymphocytes % (Manual) Seg Neutrophils # Seg Neutrophils # Man Lymphocytes # (Manual) POC ABG pH POC ABG pCO2 POC ABG pO2 117 H Sodium Potassium Chloride Carbon Dioxide BUN Creatinine Glucose POC Glucose 126 H 110 H Lactic Acid Calcium Ionized Calcium Alkaline Phosphatase Lactate Dehydrogenase CK-MB (CK-2) Troponin T C-Reactive Protein Total Protein Albumin LDL Cholesterol Direct Fluid Total Protein Salicylates 07/05/17 07/05/17 07/05/17 12:40 17:51 18:12 WBC RBC Hgb Hct MCV MCHC RDW Plt Count Lymph % (Auto) [place] % (Auto) Lymph # [place] # Seg Neutrophils % Seg Neuts % (Manual) Lymphocytes % (Manual) Seg Neutrophils # Seg Neutrophils # Man Lymphocytes # (Manual) POC ABG pH POC ABG pCO2 POC ABG pO2 Sodium Potassium Chloride Carbon Dioxide BUN Creatinine Glucose POC Glucose 57 L 69 L Lactic Acid Calcium Ionized Calcium Alkaline Phosphatase Lactate Dehydrogenase CK-MB (CK-2) Troponin T 0.277 H* C-Reactive Protein Total Protein Albumin LDL Cholesterol Direct Fluid Total Protein Salicylates 07/05/17 07/05/17 07/05/17 Unknown Unknown Unknown WBC 22.2 H RBC 3.24 L Hgb 9.7 L Hct 28.6 L MCV MCHC RDW Plt Count 89 L Lymph % (Auto) [place] % (Auto) Lymph # [place] # Seg Neutrophils % Seg Neuts % (Manual) 89.0 H Lymphocytes % (Manual) 7.0 L Seg Neutrophils # Seg Neutrophils # Man 19.8 H Lymphocytes # (Manual) POC ABG pH POC ABG pCO2 POC ABG pO2 Sodium Potassium 3.5 L Chloride Carbon Dioxide BUN 37 H Creatinine 3.1 H Glucose 120 H POC Glucose Lactic Acid 2.30 H* Calcium 7.7 L Ionized Calcium Alkaline Phosphatase Lactate Dehydrogenase CK-MB (CK-2) Troponin T C-Reactive Protein Total Protein Albumin LDL Cholesterol Direct Fluid Total Protein Salicylates 07/05/17 07/06/17 07/06/17 Unknown 03:25 03:25 WBC 17.7 H RBC 3.14 L Hgb 9.3 L Hct 27.8 L MCV MCHC RDW 15.7 H Plt Count 82 L Lymph % (Auto) 2.5 L [place] % (Auto) Lymph # 0.4 L [place] # 1.1 H Seg Neutrophils % 90.0 H Seg Neuts % (Manual) Lymphocytes % (Manual) Seg Neutrophils # 15.9 H Seg Neutrophils # Man Lymphocytes # (Manual) POC ABG pH POC ABG pCO2 POC ABG pO2 Sodium Potassium 3.3 L Chloride Carbon Dioxide BUN 44 H Creatinine 3.6 H Glucose 132 H POC Glucose Lactic Acid Calcium 7.4 L Ionized Calcium Alkaline Phosphatase Lactate Dehydrogenase CK-MB (CK-2) Troponin T C-Reactive Protein 9.90 H Total Protein Albumin LDL Cholesterol Direct Fluid Total Protein Salicylates 07/06/17 07/06/17 07/06/17 04:19 05:24 08:30 WBC RBC Hgb Hct MCV MCHC RDW Plt Count Lymph % (Auto) [place] % (Auto) Lymph # [place] # Seg Neutrophils % Seg Neuts % (Manual) Lymphocytes % (Manual) Seg Neutrophils # Seg Neutrophils # Man Lymphocytes # (Manual) POC ABG pH POC ABG pCO2 34.3 L POC ABG pO2 Sodium Potassium Chloride Carbon Dioxide BUN Creatinine Glucose POC Glucose 174 H Lactic Acid Calcium Ionized Calcium Alkaline Phosphatase Lactate Dehydrogenase 880 H CK-MB (CK-2) Troponin T C-Reactive Protein Total Protein 4.9 L Albumin LDL Cholesterol Direct Fluid Total Protein Salicylates 07/06/17 07/06/17 07/06/17 11:13 17:14 23:38 WBC RBC Hgb Hct MCV MCHC RDW Plt Count Lymph % (Auto) [place] % (Auto) Lymph # [place] # Seg Neutrophils % Seg Neuts % (Manual) Lymphocytes % (Manual) Seg Neutrophils # Seg Neutrophils # Man Lymphocytes # (Manual) POC ABG pH POC ABG pCO2 POC ABG pO2 Sodium Potassium Chloride Carbon Dioxide BUN Creatinine Glucose POC Glucose 216 H 211 H 122 H Lactic Acid Calcium Ionized Calcium Alkaline Phosphatase Lactate Dehydrogenase CK-MB (CK-2) Troponin T C-Reactive Protein Total Protein Albumin LDL Cholesterol Direct Fluid Total Protein Salicylates 07/06/17 07/07/17 07/07/17 Unknown 04:38 05:00 WBC 16.1 H RBC 3.00 L Hgb 8.9 L Hct 26.6 L MCV MCHC RDW 15.6 H Plt Count 106 L Lymph % (Auto) 4.1 L [place] % (Auto) 8.0 H Lymph # 0.7 L [place] # 1.3 H Seg Neutrophils % 86.6 H Seg Neuts % (Manual) Lymphocytes % (Manual) Seg Neutrophils # 13.9 H Seg Neutrophils # Man Lymphocytes # (Manual) POC ABG pH 7.455 H POC ABG pCO2 POC ABG pO2 134 H Sodium Potassium Chloride Carbon Dioxide BUN Creatinine Glucose POC Glucose Lactic Acid Calcium Ionized Calcium Alkaline Phosphatase Lactate Dehydrogenase CK-MB (CK-2) Troponin T C-Reactive Protein Total Protein Albumin LDL Cholesterol Direct Fluid Total Protein < 3.0 L Salicylates 07/07/17 07/07/17 07/07/17 05:00 05:17 11:33 WBC RBC Hgb Hct MCV MCHC RDW Plt Count Lymph % (Auto) [place] % (Auto) Lymph # [place] # Seg Neutrophils % Seg Neuts % (Manual) Lymphocytes % (Manual) Seg Neutrophils # Seg Neutrophils # Man Lymphocytes # (Manual) POC ABG pH POC ABG pCO2 POC ABG pO2 Sodium Potassium Chloride Carbon Dioxide BUN 30 H Creatinine 2.8 H Glucose 188 H POC Glucose 189 H 275 H Lactic Acid Calcium 7.9 L Ionized Calcium Alkaline Phosphatase Lactate Dehydrogenase CK-MB (CK-2) Troponin T C-Reactive Protein Total Protein Albumin LDL Cholesterol Direct Fluid Total Protein Salicylates 07/07/17 07/07/17 07/07/17 16:04 17:08 23:45 WBC RBC Hgb Hct MCV MCHC RDW Plt Count Lymph % (Auto) [place] % (Auto) Lymph # [place] # Seg Neutrophils % Seg Neuts % (Manual) Lymphocytes % (Manual) Seg Neutrophils # Seg Neutrophils # Man Lymphocytes # (Manual) POC ABG pH POC ABG pCO2 POC ABG pO2 126 H Sodium Potassium Chloride Carbon Dioxide BUN Creatinine Glucose POC Glucose 241 H 118 H Lactic Acid Calcium Ionized Calcium Alkaline Phosphatase Lactate Dehydrogenase CK-MB (CK-2) Troponin T C-Reactive Protein Total Protein Albumin LDL Cholesterol Direct Fluid Total Protein Salicylates 07/08/17 07/08/17 07/08/17 05:30 05:54 06:12 WBC 17.0 H RBC 3.27 L Hgb 9.5 L Hct 29.1 L MCV MCHC RDW 15.6 H Plt Count 133 L Lymph % (Auto) 4.6 L [place] % (Auto) 9.2 H Lymph # 0.8 L [place] # 1.6 H Seg Neutrophils % 83.9 H Seg Neuts % (Manual) Lymphocytes % (Manual) Seg Neutrophils # 14.3 H Seg Neutrophils # Man Lymphocytes # (Manual) POC ABG pH 7.477 H POC ABG pCO2 POC ABG pO2 118 H Sodium Potassium Chloride Carbon Dioxide BUN Creatinine Glucose POC Glucose 199 H Lactic Acid Calcium Ionized Calcium Alkaline Phosphatase Lactate Dehydrogenase CK-MB (CK-2) Troponin T C-Reactive Protein Total Protein Albumin LDL Cholesterol Direct Fluid Total Protein Salicylates 07/08/17 07/08/17 07/08/17 06:12 11:37 17:21 WBC RBC Hgb Hct MCV MCHC RDW Plt Count Lymph % (Auto) [place] % (Auto) Lymph # [place] # Seg Neutrophils % Seg Neuts % (Manual) Lymphocytes % (Manual) Seg Neutrophils # Seg Neutrophils # Man Lymphocytes # (Manual) POC ABG pH POC ABG pCO2 POC ABG pO2 Sodium Potassium Chloride Carbon Dioxide BUN 44 H Creatinine 3.4 H Glucose 190 H POC Glucose 236 H 186 H Lactic Acid Calcium 7.8 L Ionized Calcium Alkaline Phosphatase Lactate Dehydrogenase CK-MB (CK-2) Troponin T C-Reactive Protein Total Protein Albumin LDL Cholesterol Direct Fluid Total Protein Salicylates 07/08/17 07/09/17 07/09/17 23:09 04:27 05:02 WBC 17.8 H RBC 2.88 L Hgb 8.5 L Hct 25.6 L MCV MCHC RDW 15.5 H Plt Count Lymph % (Auto) 4.6 L [place] % (Auto) 10.2 H Lymph # 0.8 L [place] # 1.8 H Seg Neutrophils % 83.4 H Seg Neuts % (Manual) Lymphocytes % (Manual) Seg Neutrophils # 14.8 H Seg Neutrophils # Man Lymphocytes # (Manual) POC ABG pH POC ABG pCO2 POC ABG pO2 132 H Sodium Potassium Chloride Carbon Dioxide BUN Creatinine Glucose POC Glucose 203 H Lactic Acid Calcium Ionized Calcium Alkaline Phosphatase Lactate Dehydrogenase CK-MB (CK-2) Troponin T C-Reactive Protein Total Protein Albumin LDL Cholesterol Direct Fluid Total Protein Salicylates 07/09/17 07/09/17 07/09/17 05:02 05:33 12:07 WBC RBC Hgb Hct MCV MCHC RDW Plt Count Lymph % (Auto) [place] % (Auto) Lymph # [place] # Seg Neutrophils % Seg Neuts % (Manual) Lymphocytes % (Manual) Seg Neutrophils # Seg Neutrophils # Man Lymphocytes # (Manual) POC ABG pH POC ABG pCO2 POC ABG pO2 Sodium Potassium Chloride Carbon Dioxide BUN 61 H Creatinine 4.0 H Glucose 183 H POC Glucose 177 H 276 H Lactic Acid Calcium 7.6 L Ionized Calcium Alkaline Phosphatase Lactate Dehydrogenase CK-MB (CK-2) Troponin T C-Reactive Protein Total Protein Albumin LDL Cholesterol Direct Fluid Total Protein Salicylates 07/09/17 07/10/17 07/10/17 18:54 03:50 03:50 WBC 16.8 H RBC 2.77 L Hgb 8.1 L Hct 24.9 L MCV MCHC RDW 15.7 H Plt Count Lymph % (Auto) 4.3 L [place] % (Auto) 10.8 H Lymph # 0.7 L [place] # 1.8 H Seg Neutrophils % 83.5 H Seg Neuts % (Manual) Lymphocytes % (Manual) Seg Neutrophils # 14.1 H Seg Neutrophils # Man Lymphocytes # (Manual) POC ABG pH POC ABG pCO2 POC ABG pO2 Sodium Potassium Chloride Carbon Dioxide BUN 31 H Creatinine 2.5 H Glucose 129 H POC Glucose 178 H Lactic Acid Calcium 8.1 L Ionized Calcium Alkaline Phosphatase Lactate Dehydrogenase CK-MB (CK-2) Troponin T C-Reactive Protein Total Protein Albumin LDL Cholesterol Direct Fluid Total Protein Salicylates 07/10/17 07/10/17 07/10/17 05:41 10:02 10:07 WBC 16.3 H RBC 2.66 L Hgb 7.9 L Hct 23.5 L MCV MCHC RDW 16.1 H Plt Count Lymph % (Auto) 4.8 L [place] % (Auto) 9.6 H Lymph # 0.8 L [place] # 1.6 H Seg Neutrophils % 84.0 H Seg Neuts % (Manual) Lymphocytes % (Manual) Seg Neutrophils # 13.7 H Seg Neutrophils # Man Lymphocytes # (Manual) POC ABG pH POC ABG pCO2 POC ABG pO2 Sodium Potassium Chloride Carbon Dioxide BUN 35 H Creatinine 2.6 H Glucose 196 H POC Glucose 160 H Lactic Acid Calcium 7.9 L Ionized Calcium Alkaline Phosphatase Lactate Dehydrogenase CK-MB (CK-2) Troponin T C-Reactive Protein Total Protein Albumin LDL Cholesterol Direct Fluid Total Protein Salicylates 07/10/17 07/10/17 07/10/17 11:21 14:14 16:36 WBC RBC Hgb Hct MCV MCHC RDW Plt Count Lymph % (Auto) [place] % (Auto) Lymph # [place] # Seg Neutrophils % Seg Neuts % (Manual) Lymphocytes % (Manual) Seg Neutrophils # Seg Neutrophils # Man Lymphocytes # (Manual) POC ABG pH POC ABG pCO2 POC ABG pO2 138 H Sodium Potassium Chloride Carbon Dioxide BUN Creatinine Glucose POC Glucose 206 H 133 H Lactic Acid Calcium Ionized Calcium Alkaline Phosphatase Lactate Dehydrogenase CK-MB (CK-2) Troponin T C-Reactive Protein Total Protein Albumin LDL Cholesterol Direct Fluid Total Protein Salicylates 07/11/17 07/11/17 07/11/17 04:08 08:19 13:58 WBC RBC Hgb Hct MCV MCHC RDW Plt Count Lymph % (Auto) [place] % (Auto) Lymph # [place] # Seg Neutrophils % Seg Neuts % (Manual) Lymphocytes % (Manual) Seg Neutrophils # Seg Neutrophils # Man Lymphocytes # (Manual) POC ABG pH POC ABG pCO2 POC ABG pO2 Sodium Potassium Chloride Carbon Dioxide BUN 45 H Creatinine 3.1 H Glucose POC Glucose 155 H 199 H Lactic Acid Calcium 7.8 L Ionized Calcium Alkaline Phosphatase Lactate Dehydrogenase CK-MB (CK-2) Troponin T C-Reactive Protein Total Protein Albumin LDL Cholesterol Direct Fluid Total Protein Salicylates 07/11/17 07/11/17 07/12/17 17:52 23:39 04:37 WBC 12.9 H RBC 2.62 L Hgb 7.6 L Hct 24.0 L MCV MCHC RDW 16.0 H Plt Count Lymph % (Auto) 4.8 L [place] % (Auto) 8.6 H Lymph # 0.6 L [place] # 1.1 H Seg Neutrophils % 84.8 H Seg Neuts % (Manual) Lymphocytes % (Manual) Seg Neutrophils # 10.9 H Seg Neutrophils # Man Lymphocytes # (Manual) POC ABG pH POC ABG pCO2 POC ABG pO2 Sodium Potassium Chloride Carbon Dioxide BUN Creatinine Glucose POC Glucose 133 H 129 H Lactic Acid Calcium Ionized Calcium Alkaline Phosphatase Lactate Dehydrogenase CK-MB (CK-2) Troponin T C-Reactive Protein Total Protein Albumin LDL Cholesterol Direct Fluid Total Protein Salicylates 07/12/17 07/12/17 07/12/17 04:37 05:39 11:41 WBC RBC Hgb Hct MCV MCHC RDW Plt Count Lymph % (Auto) [place] % (Auto) Lymph # [place] # Seg Neutrophils % Seg Neuts % (Manual) Lymphocytes % (Manual) Seg Neutrophils # Seg Neutrophils # Man Lymphocytes # (Manual) POC ABG pH POC ABG pCO2 POC ABG pO2 Sodium Potassium Chloride Carbon Dioxide BUN 29 H Creatinine 2.1 H Glucose 137 H POC Glucose 149 H 203 H Lactic Acid Calcium 8.0 L Ionized Calcium Alkaline Phosphatase Lactate Dehydrogenase CK-MB (CK-2) Troponin T C-Reactive Protein Total Protein Albumin LDL Cholesterol Direct Fluid Total Protein Salicylates 07/13/17 07/13/17 07/13/17 04:46 05:35 12:14 WBC RBC Hgb Hct MCV MCHC RDW Plt Count Lymph % (Auto) [place] % (Auto) Lymph # [place] # Seg Neutrophils % Seg Neuts % (Manual) Lymphocytes % (Manual) Seg Neutrophils # Seg Neutrophils # Man Lymphocytes # (Manual) POC ABG pH POC ABG pCO2 POC ABG pO2 Sodium Potassium Chloride Carbon Dioxide BUN 46 H Creatinine 2.8 H Glucose 128 H POC Glucose 139 H 243 H Lactic Acid Calcium 7.5 L Ionized Calcium Alkaline Phosphatase Lactate Dehydrogenase CK-MB (CK-2) Troponin T C-Reactive Protein Total Protein Albumin LDL Cholesterol Direct Fluid Total Protein Salicylates 07/13/17 07/13/17 07/14/17 17:33 23:48 05:32 WBC RBC Hgb Hct MCV MCHC RDW Plt Count Lymph % (Auto) [place] % (Auto) Lymph # [place] # Seg Neutrophils % Seg Neuts % (Manual) Lymphocytes % (Manual) Seg Neutrophils # Seg Neutrophils # Man Lymphocytes # (Manual) POC ABG pH POC ABG pCO2 POC ABG pO2 Sodium Potassium Chloride Carbon Dioxide BUN Creatinine Glucose POC Glucose 193 H 133 H 143 H Lactic Acid Calcium Ionized Calcium Alkaline Phosphatase Lactate Dehydrogenase CK-MB (CK-2) Troponin T C-Reactive Protein Total Protein Albumin LDL Cholesterol Direct Fluid Total Protein Salicylates 07/14/17 07/14/17 07/15/17 11:43 17:49 05:09 WBC RBC Hgb Hct MCV MCHC RDW Plt Count Lymph % (Auto) [place] % (Auto) Lymph # [place] # Seg Neutrophils % Seg Neuts % (Manual) Lymphocytes % (Manual) Seg Neutrophils # Seg Neutrophils # Man Lymphocytes # (Manual) POC ABG pH POC ABG pCO2 POC ABG pO2 Sodium Potassium Chloride Carbon Dioxide BUN Creatinine Glucose POC Glucose 143 H 195 H 61 L Lactic Acid Calcium Ionized Calcium Alkaline Phosphatase Lactate Dehydrogenase CK-MB (CK-2) Troponin T C-Reactive Protein Total Protein Albumin LDL Cholesterol Direct Fluid Total Protein Salicylates Allied health notes reviewed: RT
[2017-07-15 13:24] LABS: Basophils % (Auto) 0.3 % (0.0-1.8); Eosinophils % (Auto) 1.3 % (0.0-4.3); Mean Corpuscular HGB Conc 33 % (32-34); Mean Corpuscular Hemoglobin 30 pg (28-32); Mean Corpuscular Volume 90 fl (84-94); Platelet Count 205 K/mm3 (140-440); Red Blood Count 1.76 M/mm3 (3.65-5.03); Red Cell Distribution Width 16.1 % (13.2-15.2); White Blood Count 13.6 K/mm3 (4.5-11.0)
[2017-07-15 13:26] LABS: Hemoglobin 5.2 gm/dl (11.8-15.2)
[2017-07-15 13:27] LABS: Hematocrit 15.8 % (35.5-45.6)
[2017-07-15 13:53] LABS: Alanine Aminotransferase 14 units/L (7-56); Albumin 1.6 g/dL (3.9-5); Albumin/Globulin Ratio 0.5 %; Alkaline Phosphatase 152 units/L (35-129); Anion Gap 15 mmol/L; BUN/Creatinine Ratio 20; Bilirubin,Total < 0.20 mg/dL (0.1-1.2); Blood Urea Nitrogen 54 mg/dL (9-20); Calcium 7.1 mg/dL (8.4-10.2); Carbon Dioxide 27 mmol/L (22-30); Chloride 98.7 mmol/L (98-107); Glucose 157 mg/dL (75-100); Potassium 3.8 mmol/L (3.6-5.0); Sodium 137 mmol/L (137-145); Total Protein 4.7 g/dL (6.3-8.2)
[2017-07-15] MEDS ORDERED: NACL 0.9% 500 ML 500 ML IV ONE (14:25)
--- NOTE | 2017-07-15 14:35 | Progress Note ---
Assessment and Plan Assessment and plan: Anoxic brain injury Status post cardiac arrest Seizure disorder Sepsis with hypotension History of diarrhea DKA with diabetic coma ESRD on HD - Patient is intubated and on mechanical ventilation, off sedation - Finished antibiotics - Patient was treated according to DKA protocol now resolved and on long-acting insulin DVT prophylaxis - Heparin Disposition - Patient will have trach on Sunday - Continue ICU care Severe Anemia - Ordered 2 units of packed red blood cells The high probability of a clinically significant, sudden or life threatening deterioration of the [CV, neurology, renal] system(s) required my full and direct attention, intervention and personal management. The aggregate critical care time was [32] minutes. This time is in addition to time spent performing reported procedures but includes the following: [x] Data Review and interpretation [x] Patient assessment and monitoring of vital signs [x] Documentation [x] Medication orders and management History Interval history: Patient was seen and evaluated this morning, patient in non communicative. Patient is off sedation. I have discussed the plan with his son. Hospitalist Physical - Physical exam Narrative exam: Patient is intubated and on mechanical ventilation. The patient appeared well nourished and normally developed. Vital signs as documented. Head exam is unremarkable. No scleral icterus . Neck is without jugular venous distension, thyromegaly, or carotid bruits. Lungs are clear to auscultation. Cardiac exam reveals regular rate and Rhythm. First and second heart sounds normal. No murmurs, rubs or gallops. Abdominal exam reveals normal bowel sounds, no masses, no organomegaly and no aortic enlargement. Extremities are nonedematous and both femoral and pedal pulses are normal. CAT HOOKER: Patient is comatose. He is off sedation. - Constitutional Vitals: Temp Pulse Resp BP Pulse Ox 97.5 F L 87 18 95/48 100 07/15/17 12:25 07/15/17 13:58 07/15/17 13:58 07/15/17 13:58 07/15/17 13:58 General appearance: Present: mild distress, other (intubated, unresponsive) Results - Labs CBC & Chem 7: 07/15/17 12:52 07/15/17 12:52 Labs: Laboratory Last Values WBC 13.6 K/mm3 (4.5-11.0) H 07/15/17 12:52 RBC 1.76 M/mm3 (3.65-5.03) L 07/15/17 12:52 Hgb 5.2 gm/dl (11.8-15.2) L* 07/15/17 12:52 Hct 15.8 % (35.5-45.6) L* 07/15/17 12:52 MCV 90 fl (84-94) 07/15/17 12:52 MCH 30 pg (28-32) 07/15/17 12:52 MCHC 33 % (32-34) 07/15/17 12:52 RDW 16.1 % (13.2-15.2) H 07/15/17 12:52 Plt Count 205 K/mm3 (140-440) 07/15/17 12:52 Lymph % (Auto) 4.7 % (13.4-35.0) L 07/15/17 12:52 [place] % (Auto) 8.3 % (0.0-7.3) H 07/15/17 12:52 E[place] % (Auto) 1.3 % (0.0-4.3) 07/15/17 12:52 Baso % (Auto) 0.3 % (0.0-1.8) 07/15/17 12:52 Lymph # 0.6 K/mm3 (1.2-5.4) L 07/15/17 12:52 [place] # 1.1 K/mm3 (0.0-0.8) H 07/15/17 12:52 Eos # 0.2 K/mm3 (0.0-0.4) 07/15/17 12:52 Baso # 0.0 K/mm3 (0.0-0.1) 07/15/17 12:52 Add Manual Diff Complete 07/05/17 Unknown Total Counted 100 07/05/17 Unknown Seg Neutrophils % 85.4 % (40.0-70.0) H 07/15/17 12:52 Seg Neuts % (Manual) 89.0 % (40.0-70.0) H 07/05/17 Unknown Band Neutrophils % 1.0 % 07/05/17 Unknown Lymphocytes % (Manual) 7.0 % (13.4-35.0) L 07/05/17 Unknown Reactive Lymphs % (Man) 0 % 07/05/17 Unknown Monocytes % (Manual) 3.0 % (0.0-7.3) 07/05/17 Unknown Eosinophils % (Manual) 0 % (0.0-4.3) 07/05/17 Unknown Basophils % (Manual) 0 % (0.0-1.8) 07/05/17 Unknown Metamyelocytes % 0 % 07/05/17 Unknown Myelocytes % 0 % 07/05/17 Unknown Promyelocytes % 0 % 07/05/17 Unknown Blast Cells % 0 % 07/05/17 Unknown Nucleated RBC % Not Reportable 07/05/17 Unknown Seg Neutrophils # 11.7 K/mm3 (1.8-7.7) H 07/15/17 12:52 Seg Neutrophils # Man 19.8 K/mm3 (1.8-7.7) H 07/05/17 Unknown Band Neutrophils # 0.2 K/mm3 07/05/17 Unknown Lymphocytes # (Manual) 1.6 K/mm3 (1.2-5.4) 07/05/17 Unknown Abs React Lymphs (Man) 0.0 K/mm3 07/05/17 Unknown Monocytes # (Manual) 0.7 K/mm3 (0.0-0.8) 07/05/17 Unknown Eosinophils # (Manual) 0.0 K/mm3 (0.0-0.4) 07/05/17 Unknown Basophils # (Manual) 0.0 K/mm3 (0.0-0.1) 07/05/17 Unknown Metamyelocytes # 0.0 K/mm3 07/05/17 Unknown Myelocytes # 0.0 K/mm3 07/05/17 Unknown Promyelocytes # 0.0 K/mm3 07/05/17 Unknown Blast Cells # 0.0 K/mm3 07/05/17 Unknown WBC Morphology Not Reportable 07/05/17 Unknown Hypersegmented Neuts Not Reportable 07/05/17 Unknown Hyposegmented Neuts Not Reportable 07/05/17 Unknown Hypogranular Neuts Not Reportable 07/05/17 Unknown Smudge Cells Not Reportable 07/05/17 Unknown Toxic Granulation Not Reportable 07/05/17 Unknown Toxic Vacuolation Not Reportable 07/05/17 Unknown Dohle Bodies Not Reportable 07/05/17 Unknown Pelger-Huet Anomaly Not Reportable 07/05/17 Unknown [place] Rods Not Reportable 07/05/17 Unknown Platelet Estimate Appears decreased 07/05/17 Unknown Clumped Platelets Not Reportable 07/05/17 Unknown Plt Clumps, EDTA Not Reportable 07/05/17 Unknown Large Platelets Not Reportable 07/05/17 Unknown Giant Platelets Not Reportable 07/05/17 Unknown Platelet Satelliting Not Reportable 07/05/17 Unknown Plt Morphology Comment Not Reportable 07/05/17 Unknown RBC Morphology Not Reportable 07/05/17 Unknown Dimorphic RBCs Not Reportable 07/05/17 Unknown Polychromasia Not Reportable 07/05/17 Unknown Hypochromasia Not Reportable 07/05/17 Unknown Poikilocytosis 1+ 07/05/17 Unknown Anisocytosis 1+ 07/05/17 Unknown Microcytosis Few 07/05/17 Unknown Macrocytosis Not Reportable 07/05/17 Unknown Spherocytes Not Reportable 07/05/17 Unknown Pappenheimer Bodies Not Reportable 07/05/17 Unknown Sickle Cells Not Reportable 07/05/17 Unknown Target Cells Not Reportable 07/05/17 Unknown Tear Drop Cells Not Reportable 07/05/17 Unknown Ovalocytes Not Reportable 07/05/17 Unknown Helmet Cells Not Reportable 07/05/17 Unknown Kim-Essig Bodies Not Reportable 07/05/17 Unknown [place] Rings Not Reportable 07/05/17 Unknown Bianca Cells Not Reportable 07/05/17 Unknown Bite Cells Not Reportable 07/05/17 Unknown Crenated Cell Not Reportable 07/05/17 Unknown Elliptocytes Not Reportable 07/05/17 Unknown Acanthocytes (Spur) Not Reportable 07/05/17 Unknown Rouleaux Not Reportable 07/05/17 Unknown Hemoglobin C Crystals Not Reportable 07/05/17 Unknown Schistocytes Not Reportable 07/05/17 Unknown Malaria parasites Not Reportable 07/05/17 Unknown Morales Bodies Not Reportable 07/05/17 Unknown Hem Pathologist Commnt No 07/05/17 Unknown PT 12.9 Sec. (12.2-14.9) 07/06/17 08:30 INR 0.93 (0.87-1.13) 07/06/17 08:30 Heparin Anti-Xa, Unfract Negative (Negative) 07/10/17 10:07 POC ABG pH 7.448 (7.35-7.45) 07/10/17 14:14 POC ABG pCO2 39.1 (35-45) 07/10/17 14:14 POC ABG pO2 138 (80-105) H 07/10/17 14:14 POC ABG HCO3 27.0 07/10/17 14:14 POC ABG Total CO2 28 07/10/17 14:14 POC ABG O2 Sat 99 07/10/17 14:14 POC ABG Base Excess 3 07/10/17 14:14 FiO2 28 % 07/10/17 14:14 Sodium 137 mmol/L (137-145) 07/15/17 12:52 Potassium 3.8 mmol/L (3.6-5.0) 07/15/17 12:52 Chloride 98.7 mmol/L (98-107) 07/15/17 12:52 Carbon Dioxide 27 mmol/L (22-30) 07/15/17 12:52 Anion Gap 15 mmol/L 07/15/17 12:52 BUN 54 mg/dL (9-20) H 07/15/17 12:52 Creatinine 2.7 mg/dL (0.8-1.5) H 07/15/17 12:52 Estimated GFR 28 ml/min 07/15/17 12:52 BUN/Creatinine Ratio 20 % 07/15/17 12:52 Glucose 157 mg/dL (75-100) H 07/15/17 12:52 POC Glucose 164 (70-105) H 07/15/17 12:00 Osmolality 357 Mosm/kg 07/02/17 15:35 Lactic Acid 2.30 mmol/L (0.7-2.0) H* 07/05/17 Unknown Calcium 7.1 mg/dL (8.4-10.2) L 07/15/17 12:52 Ionized Calcium 4.6 mg/dL (4.8-5.6) L 07/04/17 14:10 Phosphorus 1.90 mg/dL (2.5-4.5) L 07/15/17 12:52 Magnesium 1.80 mg/dL (1.7-2.3) 07/04/17 14:10 Total Bilirubin < 0.20 mg/dL (0.1-1.2) 07/15/17 12:52 AST 50 units/L (5-40) H 07/15/17 12:52 ALT 14 units/L (7-56) 07/15/17 12:52 Alkaline Phosphatase 152 units/L (35-129) H 07/15/17 12:52 Lactate Dehydrogenase 880 units/L (91-180) H 07/06/17 08:30 Total Creatine Kinase 58 units/L (55-170) 07/05/17 12:40 CK-MB (CK-2) 1.8 ng/mL (0.0-4.0) 07/05/17 12:40 CK-MB (CK-2) Rel Index 3.1 (0-4) 07/05/17 12:40 Troponin T 0.277 ng/mL (0.00-0.029) H* 07/05/17 12:40 C-Reactive Protein 9.90 mg/dL (0.00-1.30) H 07/05/17 Unknown Total Protein 4.7 g/dL (6.3-8.2) L 07/15/17 12:52 Albumin 1.6 g/dL (3.9-5) L 07/15/17 12:52 Albumin/Globulin Ratio 0.5 % 07/15/17 12:52 Triglycerides 83 mg/dL (2-149) 07/04/17 14:10 Cholesterol 83 mg/dL (50-199) 07/04/17 14:10 LDL Cholesterol Direct 22 mg/dL (50-130) L 07/04/17 14:10 HDL Cholesterol 45 mg/dL (40-59) 07/04/17 14:10 Cholesterol/HDL Ratio 1.84 % 07/04/17 14:10 TSH 3.200 mlU/mL (0.270-4.200) 07/02/17 Unknown PTH Intact 159.8 pg/mL (15-65) H 07/15/17 12:52 Urine Color Yellow (Yellow) 07/02/17 17:25 Urine Turbidity Clear (Clear) 07/02/17 17:25 Urine pH 5.0 (5.0-7.0) 07/02/17 17:25 Ur Specific [place] 1.018 (1.003-1.030) 07/02/17 17:25 Urine Protein 100 mg/dl mg/dL (Negative) 07/02/17 17:25 Urine Glucose (UA) >=500 mg/dL (Negative) 11/13/17 17:25 Urine Ketones Neg mg/dL (Negative) 07/02/17 17:25 Urine Blood Sm (Negative) 07/02/17 17:25 Urine Nitrite Neg (Negative) 07/02/17 17:25 Urine Bilirubin Neg (Negative) 07/02/17 17:25 Urine Urobilinogen < 2.0 mg/dL (<2.0) 07/02/17 17:25 Ur Leukocyte Esterase Neg (Negative) 07/02/17 17:25 Urine WBC (Auto) 1.0 /HPF (0.0-6.0) 07/02/17 17:25 Urine RBC (Auto) 2.0 /HPF (0.0-6.0) 07/02/17 17:25 U Epithel Cells (Auto) 1.0 /HPF (0-13.0) 07/02/17 17:25 Fluid Type Pleural 07/06/17 16:53 Fluid Color Yellow 07/06/17 16:53 Fluid Appearance Clear 07/06/17 16:53 Fluid WBC 9 /mm3 07/06/17 16:53 Fluid RBC 6 /mm3 07/06/17 16:53 Fluid Seg Neutrophils 51.2 % 07/06/17 16:53 Fluid Lymphocytes 43.9 % 07/06/17 16:53 Fluid Reactive Lymphs 0 % 07/06/17 16:53 Fluid Monocytes 4.9 % 07/06/17 16:53 Fluid Eosinophils 0 % 07/06/17 16:53 Fluid Basophils 0 % 07/06/17 16:53 Fluid Total Protein < 3.0 (15.0-45.0) L 07/06/17 Unknown Fluid LDH 132 07/06/17 Unknown Fluid Comment 07/06/17 16:53 Salicylates < 0.3 mg/dL (2.8-20.0) L 07/02/17 Unknown Urine Opiates Screen Presumptive negative 07/02/17 17:25 Urine Methadone Screen Presumptive negative 07/02/17 17:25 Acetaminophen < 15.0 ug/mL (10.0-30.0) 07/02/17 Unknown Ur Barbiturates Screen Presumptive negative 07/02/17 17:25 Ur Phencyclidine Scrn Presumptive negative 07/02/17 17:25 Ur Amphetamines Screen Presumptive negative 07/02/17 17:25 U Benzodiazepines Scrn Presumptive negative 07/02/17 17:25 Urine Cocaine Screen Presumptive negative 07/02/17 17:25 U Marijuana (THC) Screen Presumptive negative 07/02/17 17:25 Drugs of Abuse Note Disclamer 07/02/17 17:25 Plasma/Serum Alcohol < 0.01 gm% (0-0.07) 07/02/17 Unknown Heparin-induced Plt Ab Negative (Negative) 07/10/17 10:07 UF Heparin High Dose 0 % Release 07/10/17 10:07 TREVOR UFH Low Dose 0.1 0 % Release 07/10/17 10:07 TREVOR UFH Low Dose 0.5 0 % Release 07/10/17 10:07 Hemoglobin is 5.2
--- NOTE | 2017-07-15 15:44 | Progress Note ---
Assessment and Plan Assessment: 1) Shock after cardiac arrest (?cardiogenic ?hypovolemic ?septic): shock resolved. leukocytosis went up possibly reactive from severe anemia Septic component etiology unclear ? colitis (CT abd negative). CRP=9 2) Seizures ? 3) DM-uncontrolled with DKA 4) ESRD on HD 5) Anemia still low Hg / thrombocytopenia resolved - Hg dropped 5.2 6) Bloody Diarrhea versus melena ? colitis ?GI bleed. Hemo-occult + 7) Pleural effusion s/p thoracenthesis - transudate Plan: -stop flagyl s/p 10 days -monitor off antibiotics Thank you Dr Moore for your consultation, will follow up with you. Laura Crocker MD Infectious Diseases Specialist [facility] ([facility]) M [phone] O [phone] Subjective Date of service: 07/15/17 Principal diagnosis: Acute Hypoxemic Resp Failure; S/P Cardiac Arrest; Hyperosmolar Non-ketotic Interval history: Remains on CPAP +T feeds No fever Microbiology: Blood cultures: 07/02 ngtd Urine cultures: Respiratory cultures: 07/02 Sandra Pleural fluid 07/06: ngtd Current Antimicrobials: metronidazole 07/06 Previous Antimicrobials: Zosyn 07/02 Vanco 07/02 Objective - Exam Narrative Exam: General appearance: sedated on the vent Eyes: anicteric sclerae, moist conjunctivae; no lid-lag; PERRLA HENT: Atraumatic; oropharynx +ETT +NGT Neck: Trachea midline; supple, no thyromegaly or lymphadenopathy Lungs: CTA, CV: rrr Abdomen: Soft, non-tender Extremities: peripheral edema Skin: Normal temperature, turgor and texture; no rash, ulcers or subcutaneous nodules Psych: unable to eval . Neuro: unable to eval Lines: right IJ HD, condom cath - Constitutional Vitals: Vital Signs Temp Pulse Resp BP Pulse Ox 97.5 F L 87 18 95/48 100 07/15/17 12:25 07/15/17 13:58 07/15/17 13:58 07/15/17 13:58 07/15/17 13:58 Temperature -Last 24 Hours Temperature 97.5 F Temperature 97.3 F Temperature 98.5 F Temperature 98.4 F Temperature 98.7 F - Labs CBC & Chem 7: 07/15/17 12:52 07/15/17 12:52 Labs: Abnormal lab results 07/14/17 07/15/17 07/15/17 Range/Units 17:49 05:09 12:00 WBC (4.5-11.0) K/mm3 RBC (3.65-5.03) M/mm3 Hgb (11.8-15.2) gm/dl Hct (35.5-45.6) % RDW (13.2-15.2) % Lymph % (Auto) (13.4-35.0) % [place] % (Auto) (0.0-7.3) % Lymph # (1.2-5.4) K/mm3 [place] # (0.0-0.8) K/mm3 Seg Neutrophils % (40.0-70.0) % Seg Neutrophils # (1.8-7.7) K/mm3 BUN (9-20) mg/dL Creatinine (0.8-1.5) mg/dL Glucose (75-100) mg/dL POC Glucose 195 H 61 L 164 H (70-105) Calcium (8.4-10.2) mg/dL Phosphorus (2.5-4.5) mg/dL AST (5-40) units/L Alkaline Phosphatase (35-129) units/L Total Protein (6.3-8.2) g/dL Albumin (3.9-5) g/dL PTH Intact (15-65) pg/mL 07/15/17 07/15/17 07/15/17 Range/Units 12:52 12:52 12:52 WBC 13.6 H (4.5-11.0) K/mm3 RBC 1.76 L (3.65-5.03) M/mm3 Hgb 5.2 L* (11.8-15.2) gm/dl Hct 15.8 L* (35.5-45.6) % RDW 16.1 H (13.2-15.2) % Lymph % (Auto) 4.7 L (13.4-35.0) % [place] % (Auto) 8.3 H (0.0-7.3) % Lymph # 0.6 L (1.2-5.4) K/mm3 [place] # 1.1 H (0.0-0.8) K/mm3 Seg Neutrophils % 85.4 H (40.0-70.0) % Seg Neutrophils # 11.7 H (1.8-7.7) K/mm3 BUN 54 H (9-20) mg/dL Creatinine 2.7 H (0.8-1.5) mg/dL Glucose 157 H (75-100) mg/dL POC Glucose (70-105) Calcium 7.1 L (8.4-10.2) mg/dL Phosphorus 1.90 L (2.5-4.5) mg/dL AST 50 H (5-40) units/L Alkaline Phosphatase 152 H (35-129) units/L Total Protein 4.7 L (6.3-8.2) g/dL Albumin 1.6 L (3.9-5) g/dL PTH Intact 159.8 H (15-65) pg/mL
[2017-07-15 15:57] LABS: Hemoglobin 6.5 gm/dl (11.8-15.2)
[2017-07-15 16:05] LABS: Hematocrit 19.6 % (35.5-45.6)
[2017-07-16] MEDS: NOVOLOG SUB-Q SCH ×4 (00:35→18:18)
[2017-07-16] MEDS: DUONEB *Not for PRN Use IH SCH ×2 (00:44→08:24)
[2017-07-16 02:46] LABS: Hematocrit 20.6 % (35.5-45.6)
[2017-07-16 08:48] LABS: Hemoglobin 6.2 gm/dl (11.8-15.2)
[2017-07-16 08:50] LABS: Hematocrit 18.9 % (35.5-45.6)
--- NOTE | 2017-07-16 09:22 | Progress Note ---
Assessment and Plan Impression * End-stage renal disease on maintenance hemodialysis * Status post cardiac arrest * Anemia * Respiratory failure * Encephalopathy * Hyperosmolar nonketotic state Recommendations * Continue hemodialysis on Mondays, Wednesdays and Fridays * Epogen with dialysis * Consider packed RBC transfusion * Adjust diet and meds for ESRD state * Avoid nephrotoxins * Overall prognosis appears to be poor Subjective Date of service: 07/16/17 Principal diagnosis: Acute Hypoxemic Resp Failure; S/P Cardiac Arrest; Hyperosmolar Non-ketotic Interval history: Patient remains on the ventilator. Unresponsive. Currently on 28% FiO2. Objective - Vital Signs Vital signs: Vital Signs - 12hr 07/15/17 07/15/17 07/15/17 22:00 22:05 23:00 Temperature Pulse Rate 85 87 89 Pulse Rate [ Anterior Bilateral Throughout] Respiratory 13 12 14 Rate Respiratory Rate [Anterior Bilateral Throughout] Blood Pressure 113/63 113/63 115/57 O2 Sat by Pulse 100 100 100 Oximetry 07/15/17 07/16/17 07/16/17 23:23 00:00 00:25 Temperature 98.6 F Pulse Rate 91 H 94 H Pulse Rate [ Anterior Bilateral Throughout] Respiratory 12 Rate Respiratory Rate [Anterior Bilateral Throughout] Blood Pressure 123/64 123/64 O2 Sat by Pulse 100 100 Oximetry 07/16/17 07/16/17 07/16/17 00:40 00:50 01:00 Temperature Pulse Rate 93 H Pulse Rate [ 93 H 91 H Anterior Bilateral Throughout] Respiratory 12 Rate Respiratory 12 12 Rate [Anterior Bilateral Throughout] Blood Pressure 135/78 O2 Sat by Pulse 100 Oximetry 07/16/17 07/16/17 07/16/17 02:00 03:00 03:36 Temperature 98.4 F Pulse Rate 94 H 97 H Pulse Rate [ Anterior Bilateral Throughout] Respiratory 14 11 L Rate Respiratory Rate [Anterior Bilateral Throughout] Blood Pressure 128/71 122/68 O2 Sat by Pulse 100 100 Oximetry 07/16/17 07/16/17 07/16/17 04:01 04:35 05:00 Temperature Pulse Rate 89 83 85 Pulse Rate [ Anterior Bilateral Throughout] Respiratory 16 16 Rate Respiratory Rate [Anterior Bilateral Throughout] Blood Pressure 108/54 108/54 109/63 O2 Sat by Pulse 100 100 100 Oximetry 07/16/17 07/16/17 07/16/17 06:00 07:00 08:00 Temperature 97.2 F L Pulse Rate 85 90 88 Pulse Rate [ Anterior Bilateral Throughout] Respiratory 16 11 L 11 L Rate Respiratory Rate [Anterior Bilateral Throughout] Blood Pressure 119/59 122/62 124/65 O2 Sat by Pulse 100 100 100 Oximetry 07/16/17 07/16/17 07/16/17 08:18 08:24 08:47 Temperature Pulse Rate 89 Pulse Rate [ 86 90 Anterior Bilateral Throughout] Respiratory 15 Rate Respiratory 15 10 L Rate [Anterior Bilateral Throughout] Blood Pressure 124/65 O2 Sat by Pulse 100 Oximetry 07/16/17 09:00 Temperature Pulse Rate 87 Pulse Rate [ Anterior Bilateral Throughout] Respiratory 12 Rate Respiratory Rate [Anterior Bilateral Throughout] Blood Pressure 119/66 O2 Sat by Pulse 100 Oximetry - General Appearance General appearance: chronically ill, intubated, frail, other (-[place] male) EENT: PERRL, mucous membranes moist Neck: no JVD, no thyromegaly, no carotid bruit, supple, other (right IJ PermCath in place) Respiratory: Present: Clear to Ascultation Cardiology: regular, normal heart rate, S1S2, no murmurs Gastrointestinal: normal, normoactive bowel sounds Integumentary: no rash, other (trace to 1+ edema) - Lab 07/16/17 08:32 07/15/17 12:52 Most recent lab results Calcium 7.1 mg/dL (8.4-10.2) L 07/15/17 12:52 Phosphorus 1.90 mg/dL (2.5-4.5) L 07/15/17 12:52 Magnesium 1.80 mg/dL (1.7-2.3) 07/04/17 14:10
[2017-07-16] MEDS: LEVEMIR SUB-Q SCH (09:53)
[2017-07-16] MEDS: ROCALTROL PO SCH (09:54)
[2017-07-16] MEDS: HEPARIN SUB-Q SCH (09:54)
[2017-07-16] MEDS: PEPCID PO SCH (09:54)
[2017-07-16] MEDS: THERAGRAN-M Tab PO SCH (09:54)
[2017-07-16] MEDS: FOLVITE PO SCH (09:54)
[2017-07-16] MEDS: ASPIRIN PO SCH (09:54)
[2017-07-16] MEDS: COREG PO SCH ×2 (10:08→21:50)
[2017-07-16] MEDS: NORVASC PO SCH (10:08)
--- NOTE | 2017-07-16 10:08 | Progress Note ---
Assessment and Plan Assessment: S/p cardiopulmonary arrest - PEA in ED; intubated; currently in SR on tele with no arrhythmias noted on tele since ICU admission NSTEMI type II - flat; repeat EKG with no acute ischemic changes. AMS - ? anoxic brain injury; head CT with NAF DKA Seizure d/o HTN DM / Hyperosmolar non ketotic state Lactic acidosis / leukocytosis / ? sepsis Hyponatremia - improved Anemia Thrombocytopenia - improving Plan: Cont present cardiac regimen. Cont supportive management. For possible trach/PEG. Plan for ischemic evaluation once medically stabilized. The patient has been seen in conjunction with Dr. Bharath Xiong who agrees with the assessment and plan of care. Subjective Date of service: 07/16/17 Principal diagnosis: Acute Hypoxemic Resp Failure; S/P Cardiac Arrest; Hyperosmolar Non-ketotic Interval history: pt remains intubated, eyes open, no purposeful responses noted. Objective Last Vital Signs Temp 97.2 F L 07/16/17 08:00 Pulse 87 07/16/17 09:00 Resp 12 07/16/17 09:00 BP 119/66 07/16/17 09:00 Pulse Ox 100 07/16/17 09:00 - Physical Examination General: Other (intubated, unresponsive) HEENT: Positive: PERRL Neck: Positive: neck supple Cardiac: Positive: Reg Rate and Rhythm, S1/S2 Lungs: Positive: Decreased Breath Sounds, Ventilated Respirations Neuro: Positive: Other (intubated, unresponsive) Abdomen: Positive: Soft, Active Bowel Sounds Skin: Positive: Clear. Negative: Rash, Wound Musculoskeletal: No Fluid Collection, No Pain, Normal Range of Motion Extremities: Absent: edema - Labs and Meds Cardiac Enzymes 07/15/17 Range/Units 12:52 AST 50 H (5-40) units/L CBC 07/15/17 07/15/17 07/16/17 Range/Units 12:52 14:49 02:33 WBC 13.6 H (4.5-11.0) K/mm3 RBC 1.76 L (3.65-5.03) M/mm3 Hgb 5.2 L* 6.5 L 7.0 L (11.8-15.2) gm/dl Hct 15.8 L* 19.6 L* 20.6 L (35.5-45.6) % Plt Count 205 (140-440) K/mm3 Lymph # 0.6 L (1.2-5.4) K/mm3 [place] # 1.1 H (0.0-0.8) K/mm3 Eos # 0.2 (0.0-0.4) K/mm3 Baso # 0.0 (0.0-0.1) K/mm3 07/16/17 Range/Units 08:32 WBC (4.5-11.0) K/mm3 RBC (3.65-5.03) M/mm3 Hgb 6.2 L (11.8-15.2) gm/dl Hct 18.9 L* (35.5-45.6) % Plt Count (140-440) K/mm3 Lymph # (1.2-5.4) K/mm3 [place] # (0.0-0.8) K/mm3 Eos # (0.0-0.4) K/mm3 Baso # (0.0-0.1) K/mm3 Comprehensive Metabolic Panel 07/15/17 Range/Units 12:52 Sodium 137 (137-145) mmol/L Potassium 3.8 (3.6-5.0) mmol/L Chloride 98.7 (98-107) mmol/L Carbon Dioxide 27 (22-30) mmol/L BUN 54 H (9-20) mg/dL Creatinine 2.7 H (0.8-1.5) mg/dL Glucose 157 H (75-100) mg/dL Calcium 7.1 L (8.4-10.2) mg/dL AST 50 H (5-40) units/L ALT 14 (7-56) units/L Alkaline Phosphatase 152 H (35-129) units/L Total Protein 4.7 L (6.3-8.2) g/dL Albumin 1.6 L (3.9-5) g/dL - Imaging and Cardiology EKG: report reviewed, image reviewed Echo: report reviewed (06/27/2017 showed EF 50-55%, mild LVH, impaired relaxation , RA mildly dilated, mild MR, mild pulm HTN with RVSP 45mmHg, moderate pleural fluid) - EKG Sinus rhythms and dysrhythmias: sinus rhythm AV and intraventricular conduction: right bundle branch block - Allied health notes Allied health notes reviewed: RT
--- NOTE | 2017-07-16 11:05 | Progress Note ---
Assessment and Plan Acute Hypoxemic Respiratory Failure on MVS Seizure Disorder s/p Cardiac Arrest ESRD on Dialysis Sepsis Syndrome Hyperosmolar non ketotic state Anemia Leucocytosis Acute Encephalopathy Thrombocytopenia (Son states they want to give Dad a chance to recover and want continued aggressive care for now based on substituted judgment) - awaiting trach and PEG - transfusing 2 units PRBC's for suspected ABLA - AMS still a rate limiting factor to safe extubation - EEG being done at time of my evaluation - continue and complete antibiotics per ID recs - continue prn hydralazine and resumed home amlodipine dose (10mg qd) and coreg - keep set rate at 12/min - continue daily PSV trials as tolerated - continue aspiration precautions / addressing VAP bundle daily - continue to wean FiO2 for sats > 94% - continue enteral nutrition as tolerated - continue bronchodilators and pulmonary toilet - continue and adjust AB's per ID recs - continue glycemic control with SSI and levemir (target BG <180mg/dl) - continue GI & VTE prophylaxis - Continue to monitor platelet count while on heparin - continue other care per attending / other consultants - flu and pneumovax addressed per protocol ...the hope is that as sepsis resolves mental status will improve but that has not borne out so far ....35' CCT without overlap Subjective Date of service: 07/16/17 Principal diagnosis: Acute Hypoxemic Resp Failure; S/P Cardiac Arrest; Hyperosmolar Non-ketotic Interval history: Patient is seen today for: Acute Hypoxemic Resp Failure; S/P Cardiac Arrest; Hyperosmolar Non-ketotic Seen and examined at bedside; 24hour events reviewed; nursing and respiratory care staff consulted; no adverse overnight events reported to me; remains on MVS ; AMS is persistent; Hb dropped and awaiting blood transfusion; son visited and i spoke to him at length; he is awaiting trach and PEG Objective Vital Signs - 12hr 07/15/17 07/16/17 07/16/17 23:23 00:00 00:25 Temperature 98.6 F Pulse Rate 91 H 94 H Pulse Rate [ Anterior Bilateral Throughout] Pulse Rate [ From Monitor] Respiratory 12 Rate Respiratory Rate [Anterior Bilateral Throughout] Blood Pressure 123/64 123/64 O2 Sat by Pulse 100 100 Oximetry 07/16/17 07/16/17 07/16/17 00:40 00:50 01:00 Temperature Pulse Rate 93 H Pulse Rate [ 93 H 91 H Anterior Bilateral Throughout] Pulse Rate [ From Monitor] Respiratory 12 Rate Respiratory 12 12 Rate [Anterior Bilateral Throughout] Blood Pressure 135/78 O2 Sat by Pulse 100 Oximetry 07/16/17 07/16/17 07/16/17 02:00 03:00 03:36 Temperature 98.4 F Pulse Rate 94 H 97 H Pulse Rate [ Anterior Bilateral Throughout] Pulse Rate [ From Monitor] Respiratory 14 11 L Rate Respiratory Rate [Anterior Bilateral Throughout] Blood Pressure 128/71 122/68 O2 Sat by Pulse 100 100 Oximetry 07/16/17 07/16/17 07/16/17 04:01 04:35 05:00 Temperature Pulse Rate 89 83 85 Pulse Rate [ Anterior Bilateral Throughout] Pulse Rate [ From Monitor] Respiratory 16 16 Rate Respiratory Rate [Anterior Bilateral Throughout] Blood Pressure 108/54 108/54 109/63 O2 Sat by Pulse 100 100 100 Oximetry 07/16/17 07/16/17 07/16/17 06:00 07:00 08:00 Temperature 97.2 F L Pulse Rate 85 90 88 Pulse Rate [ Anterior Bilateral Throughout] Pulse Rate [ 88 From Monitor] Respiratory 16 11 L 11 L Rate Respiratory Rate [Anterior Bilateral Throughout] Blood Pressure 119/59 122/62 124/65 O2 Sat by Pulse 100 100 100 Oximetry 07/16/17 07/16/17 07/16/17 08:18 08:24 08:47 Temperature Pulse Rate 89 Pulse Rate [ 86 90 Anterior Bilateral Throughout] Pulse Rate [ From Monitor] Respiratory 15 Rate Respiratory 15 10 L Rate [Anterior Bilateral Throughout] Blood Pressure 124/65 O2 Sat by Pulse 100 Oximetry 07/16/17 07/16/17 09:00 10:00 Temperature Pulse Rate 87 80 Pulse Rate [ Anterior Bilateral Throughout] Pulse Rate [ From Monitor] Respiratory 12 13 Rate Respiratory Rate [Anterior Bilateral Throughout] Blood Pressure 119/66 107/66 O2 Sat by Pulse 100 100 Oximetry Constitutional: no acute distress, other (encephalopathic) Eyes: non-icteric ENT: oropharynx moist, other (ETT at 25cm TIKI) Neck: supple, no lymphadenopathy, JVD, other (no thyromegally) Effort: mildly labored Ascultation: Bilateral: diminished breath sounds (bases), rales Percussion: Bilateral: not dull Cardiovascular: regular rate and rhythm, other (no rubs / murmurs) Gastrointestinal: normoactive bowel sounds, soft, non-tender, non-distended, other (no HSM) Integumentary: normal Extremities: no cyanosis, no edema, pulses normal, no ischemia or petechiae Neurologic: pupils equal and round, unable to assess, other (no spontaneous limb movements) Psychiatric: other (unable to assess) CBC and BMP: 07/16/17 08:32 07/15/17 12:52 ABG, PT/INR, D-dimer: ABG POC ABG pH 7.448 (7.35-7.45) 07/10/17 14:14 POC ABG pCO2 39.1 (35-45) 07/10/17 14:14 POC ABG pO2 138 (80-105) H 07/10/17 14:14 POC ABG HCO3 27.0 07/10/17 14:14 POC ABG Total CO2 28 07/10/17 14:14 POC ABG O2 Sat 99 07/10/17 14:14 PT/INR, D-dimer PT 12.9 Sec. (12.2-14.9) 07/06/17 08:30 INR 0.93 (0.87-1.13) 07/06/17 08:30 Abnormal lab findings: Abnormal Labs 07/02/17 07/02/17 07/02/17 15:03 15:12 17:49 WBC 13.5 H RBC 3.47 L Hgb 9.9 L Hct 33.1 L MCV 96 H MCHC 30 L RDW 15.4 H Plt Count 130 L Lymph % (Auto) [place] % (Auto) Lymph # [place] # Seg Neutrophils % Seg Neuts % (Manual) 95.0 H Lymphocytes % (Manual) 3.0 L Seg Neutrophils # Seg Neutrophils # Man 12.8 H Lymphocytes # (Manual) 0.4 L POC ABG pH POC ABG pCO2 POC ABG pO2 Sodium Potassium Chloride Carbon Dioxide BUN Creatinine Glucose POC Glucose > 500 H Lactic Acid 7.80 H* Calcium Ionized Calcium Phosphorus AST Alkaline Phosphatase Lactate Dehydrogenase CK-MB (CK-2) Troponin T C-Reactive Protein Total Protein Albumin LDL Cholesterol Direct PTH Intact Fluid Total Protein Salicylates Crossmatch 07/02/17 07/02/17 07/02/17 20:29 21:31 23:38 WBC RBC Hgb Hct MCV MCHC RDW Plt Count Lymph % (Auto) [place] % (Auto) Lymph # [place] # Seg Neutrophils % Seg Neuts % (Manual) Lymphocytes % (Manual) Seg Neutrophils # Seg Neutrophils # Man Lymphocytes # (Manual) POC ABG pH POC ABG pCO2 POC ABG pO2 Sodium 129 L 132 L Potassium Chloride 87.2 L 93.7 L Carbon Dioxide 18 L 15 L BUN 51 H 47 H Creatinine 4.3 H 4.1 H Glucose 950 H* 825 H* POC Glucose Lactic Acid 5.70 H* Calcium 7.1 L 6.8 L Ionized Calcium Phosphorus AST Alkaline Phosphatase Lactate Dehydrogenase CK-MB (CK-2) Troponin T C-Reactive Protein Total Protein Albumin LDL Cholesterol Direct PTH Intact Fluid Total Protein Salicylates Crossmatch 07/02/17 07/02/17 07/02/17 23:38 23:44 Unknown WBC RBC Hgb Hct MCV MCHC RDW Plt Count Lymph % (Auto) [place] % (Auto) Lymph # [place] # Seg Neutrophils % Seg Neuts % (Manual) Lymphocytes % (Manual) Seg Neutrophils # Seg Neutrophils # Man Lymphocytes # (Manual) POC ABG pH POC ABG pCO2 POC ABG pO2 Sodium 132 L 125 L D Potassium Chloride 94.6 L 85.6 L Carbon Dioxide 17 L 19 L D BUN 51 H 50 H Creatinine 4.1 H 4.4 H D Glucose 772 H* 1113 H* POC Glucose > 500 H Lactic Acid Calcium 6.7 L 7.2 L Ionized Calcium Phosphorus AST Alkaline Phosphatase 139 H Lactate Dehydrogenase CK-MB (CK-2) Troponin T C-Reactive Protein Total Protein 6.1 L Albumin 3.3 L LDL Cholesterol Direct PTH Intact Fluid Total Protein Salicylates Crossmatch 07/02/17 07/02/17 07/03/17 Unknown Unknown 01:00 WBC RBC Hgb Hct MCV MCHC RDW Plt Count Lymph % (Auto) [place] % (Auto) Lymph # [place] # Seg Neutrophils % Seg Neuts % (Manual) Lymphocytes % (Manual) Seg Neutrophils # Seg Neutrophils # Man Lymphocytes # (Manual) POC ABG pH POC ABG pCO2 POC ABG pO2 Sodium 134 L Potassium Chloride 96.4 L Carbon Dioxide 19 L BUN 50 H Creatinine 4.0 H Glucose 677 H* POC Glucose Lactic Acid 6.30 H* Calcium 6.6 L Ionized Calcium Phosphorus AST Alkaline Phosphatase Lactate Dehydrogenase CK-MB (CK-2) Troponin T C-Reactive Protein Total Protein Albumin LDL Cholesterol Direct PTH Intact Fluid Total Protein Salicylates < 0.3 L Crossmatch 07/03/17 07/03/17 07/03/17 01:04 02:15 02:15 WBC RBC Hgb Hct MCV MCHC RDW Plt Count Lymph % (Auto) [place] % (Auto) Lymph # [place] # Seg Neutrophils % Seg Neuts % (Manual) Lymphocytes % (Manual) Seg Neutrophils # Seg Neutrophils # Man Lymphocytes # (Manual) POC ABG pH POC ABG pCO2 POC ABG pO2 Sodium 134 L Potassium Chloride 97.6 L Carbon Dioxide 19 L BUN 50 H Creatinine 4.2 H Glucose 592 H* POC Glucose > 500 H Lactic Acid 4.30 H* Calcium 6.6 L Ionized Calcium Phosphorus AST Alkaline Phosphatase Lactate Dehydrogenase CK-MB (CK-2) Troponin T C-Reactive Protein Total Protein Albumin LDL Cholesterol Direct PTH Intact Fluid Total Protein Salicylates Crossmatch 07/03/17 07/03/17 07/03/17 02:21 03:25 04:10 WBC RBC Hgb Hct MCV MCHC RDW Plt Count Lymph % (Auto) [place] % (Auto) Lymph # [place] # Seg Neutrophils % Seg Neuts % (Manual) Lymphocytes % (Manual) Seg Neutrophils # Seg Neutrophils # Man Lymphocytes # (Manual) POC ABG pH POC ABG pCO2 POC ABG pO2 Sodium Potassium Chloride Carbon Dioxide 19 L BUN 50 H Creatinine 4.0 H Glucose 416 H POC Glucose 482 H > 500 H Lactic Acid Calcium 6.8 L Ionized Calcium Phosphorus AST Alkaline Phosphatase Lactate Dehydrogenase CK-MB (CK-2) Troponin T C-Reactive Protein Total Protein Albumin LDL Cholesterol Direct PTH Intact Fluid Total Protein Salicylates Crossmatch 07/03/17 07/03/17 07/03/17 04:30 04:36 05:33 WBC RBC Hgb Hct MCV MCHC RDW Plt Count Lymph % (Auto) [place] % (Auto) Lymph # [place] # Seg Neutrophils % Seg Neuts % (Manual) Lymphocytes % (Manual) Seg Neutrophils # Seg Neutrophils # Man Lymphocytes # (Manual) POC ABG pH 7.311 L POC ABG pCO2 33.5 L POC ABG pO2 73 L Sodium Potassium Chloride Carbon Dioxide BUN Creatinine Glucose POC Glucose 389 H 326 H Lactic Acid Calcium Ionized Calcium Phosphorus AST Alkaline Phosphatase Lactate Dehydrogenase CK-MB (CK-2) Troponin T C-Reactive Protein Total Protein Albumin LDL Cholesterol Direct PTH Intact Fluid Total Protein Salicylates Crossmatch 07/03/17 07/03/17 07/03/17 06:06 07:38 09:58 WBC RBC Hgb Hct MCV MCHC RDW Plt Count Lymph % (Auto) [place] % (Auto) Lymph # [place] # Seg Neutrophils % Seg Neuts % (Manual) Lymphocytes % (Manual) Seg Neutrophils # Seg Neutrophils # Man Lymphocytes # (Manual) POC ABG pH POC ABG pCO2 POC ABG pO2 Sodium Potassium Chloride Carbon Dioxide BUN Creatinine Glucose POC Glucose 247 H 118 H 52 L Lactic Acid Calcium Ionized Calcium Phosphorus AST Alkaline Phosphatase Lactate Dehydrogenase CK-MB (CK-2) Troponin T C-Reactive Protein Total Protein Albumin LDL Cholesterol Direct PTH Intact Fluid Total Protein Salicylates Crossmatch 07/03/17 07/03/17 07/03/17 11:00 13:16 15:02 WBC RBC Hgb Hct MCV MCHC RDW Plt Count Lymph % (Auto) [place] % (Auto) Lymph # [place] # Seg Neutrophils % Seg Neuts % (Manual) Lymphocytes % (Manual) Seg Neutrophils # Seg Neutrophils # Man Lymphocytes # (Manual) POC ABG pH POC ABG pCO2 POC ABG pO2 Sodium Potassium Chloride Carbon Dioxide BUN Creatinine Glucose POC Glucose 64 L 112 H 158 H Lactic Acid Calcium Ionized Calcium Phosphorus AST Alkaline Phosphatase Lactate Dehydrogenase CK-MB (CK-2) Troponin T C-Reactive Protein Total Protein Albumin LDL Cholesterol Direct PTH Intact Fluid Total Protein Salicylates Crossmatch 07/03/17 07/03/17 07/03/17 18:17 Unknown Unknown WBC RBC Hgb Hct MCV MCHC RDW Plt Count Lymph % (Auto) [place] % (Auto) Lymph # [place] # Seg Neutrophils % Seg Neuts % (Manual) Lymphocytes % (Manual) Seg Neutrophils # Seg Neutrophils # Man Lymphocytes # (Manual) POC ABG pH POC ABG pCO2 POC ABG pO2 Sodium Potassium Chloride Carbon Dioxide BUN Creatinine Glucose POC Glucose 131 H Lactic Acid 2.40 H* Calcium Ionized Calcium Phosphorus AST Alkaline Phosphatase Lactate Dehydrogenase CK-MB (CK-2) Troponin T C-Reactive Protein 1.90 H Total Protein Albumin LDL Cholesterol Direct PTH Intact Fluid Total Protein Salicylates Crossmatch 07/03/17 07/04/17 07/04/17 Unknown 00:13 02:04 WBC RBC Hgb Hct MCV MCHC RDW Plt Count Lymph % (Auto) [place] % (Auto) Lymph # [place] # Seg Neutrophils % Seg Neuts % (Manual) Lymphocytes % (Manual) Seg Neutrophils # Seg Neutrophils # Man Lymphocytes # (Manual) POC ABG pH POC ABG pCO2 POC ABG pO2 Sodium Potassium Chloride Carbon Dioxide BUN 52 H Creatinine 4.3 H Glucose POC Glucose 69 L 111 H Lactic Acid Calcium 7.2 L Ionized Calcium Phosphorus AST Alkaline Phosphatase Lactate Dehydrogenase CK-MB (CK-2) Troponin T C-Reactive Protein Total Protein Albumin LDL Cholesterol Direct PTH Intact Fluid Total Protein Salicylates Crossmatch 07/04/17 07/04/17 07/04/17 04:38 08:00 08:00 WBC 28.3 H RBC 3.55 L Hgb 10.3 L Hct 31.2 L MCV MCHC RDW 15.3 H Plt Count 101 L Lymph % (Auto) [place] % (Auto) Lymph # [place] # Seg Neutrophils % Seg Neuts % (Manual) Lymphocytes % (Manual) Seg Neutrophils # Seg Neutrophils # Man Lymphocytes # (Manual) POC ABG pH POC ABG pCO2 27.6 L POC ABG pO2 Sodium Potassium Chloride Carbon Dioxide 20 L BUN 62 H Creatinine 4.7 H Glucose POC Glucose Lactic Acid Calcium 7.0 L Ionized Calcium Phosphorus AST Alkaline Phosphatase Lactate Dehydrogenase CK-MB (CK-2) Troponin T C-Reactive Protein Total Protein Albumin LDL Cholesterol Direct PTH Intact Fluid Total Protein Salicylates Crossmatch 07/04/17 07/04/17 07/04/17 14:10 14:10 14:33 WBC RBC Hgb Hct MCV MCHC RDW Plt Count Lymph % (Auto) [place] % (Auto) Lymph # [place] # Seg Neutrophils % Seg Neuts % (Manual) Lymphocytes % (Manual) Seg Neutrophils # Seg Neutrophils # Man Lymphocytes # (Manual) POC ABG pH 7.474 H POC ABG pCO2 29.4 L POC ABG pO2 Sodium Potassium Chloride Carbon Dioxide BUN Creatinine Glucose POC Glucose Lactic Acid Calcium Ionized Calcium 4.6 L Phosphorus AST Alkaline Phosphatase Lactate Dehydrogenase CK-MB (CK-2) 4.3 H Troponin T 0.282 H* C-Reactive Protein Total Protein Albumin LDL Cholesterol Direct 22 L PTH Intact Fluid Total Protein Salicylates Crossmatch 07/04/17 07/04/17 07/04/17 17:26 20:40 23:34 WBC RBC Hgb Hct MCV MCHC RDW Plt Count Lymph % (Auto) [place] % (Auto) Lymph # [place] # Seg Neutrophils % Seg Neuts % (Manual) Lymphocytes % (Manual) Seg Neutrophils # Seg Neutrophils # Man Lymphocytes # (Manual) POC ABG pH POC ABG pCO2 POC ABG pO2 Sodium Potassium Chloride Carbon Dioxide BUN Creatinine Glucose POC Glucose 201 H 188 H Lactic Acid Calcium Ionized Calcium Phosphorus AST Alkaline Phosphatase Lactate Dehydrogenase CK-MB (CK-2) Troponin T 0.276 H* C-Reactive Protein Total Protein Albumin LDL Cholesterol Direct PTH Intact Fluid Total Protein Salicylates Crossmatch 07/05/17 07/05/17 07/05/17 05:42 07:50 11:52 WBC RBC Hgb Hct MCV MCHC RDW Plt Count Lymph % (Auto) [place] % (Auto) Lymph # [place] # Seg Neutrophils % Seg Neuts % (Manual) Lymphocytes % (Manual) Seg Neutrophils # Seg Neutrophils # Man Lymphocytes # (Manual) POC ABG pH POC ABG pCO2 POC ABG pO2 117 H Sodium Potassium Chloride Carbon Dioxide BUN Creatinine Glucose POC Glucose 126 H 110 H Lactic Acid Calcium Ionized Calcium Phosphorus AST Alkaline Phosphatase Lactate Dehydrogenase CK-MB (CK-2) Troponin T C-Reactive Protein Total Protein Albumin LDL Cholesterol Direct PTH Intact Fluid Total Protein Salicylates Crossmatch 07/05/17 07/05/17 07/05/17 12:40 17:51 18:12 WBC RBC Hgb Hct MCV MCHC RDW Plt Count Lymph % (Auto) [place] % (Auto) Lymph # [place] # Seg Neutrophils % Seg Neuts % (Manual) Lymphocytes % (Manual) Seg Neutrophils # Seg Neutrophils # Man Lymphocytes # (Manual) POC ABG pH POC ABG pCO2 POC ABG pO2 Sodium Potassium Chloride Carbon Dioxide BUN Creatinine Glucose POC Glucose 57 L 69 L Lactic Acid Calcium Ionized Calcium Phosphorus AST Alkaline Phosphatase Lactate Dehydrogenase CK-MB (CK-2) Troponin T 0.277 H* C-Reactive Protein Total Protein Albumin LDL Cholesterol Direct PTH Intact Fluid Total Protein Salicylates Crossmatch 07/05/17 07/05/17 07/05/17 Unknown Unknown Unknown WBC 22.2 H RBC 3.24 L Hgb 9.7 L Hct 28.6 L MCV MCHC RDW Plt Count 89 L Lymph % (Auto) [place] % (Auto) Lymph # [place] # Seg Neutrophils % Seg Neuts % (Manual) 89.0 H Lymphocytes % (Manual) 7.0 L Seg Neutrophils # Seg Neutrophils # Man 19.8 H Lymphocytes # (Manual) POC ABG pH POC ABG pCO2 POC ABG pO2 Sodium Potassium 3.5 L Chloride Carbon Dioxide BUN 37 H Creatinine 3.1 H Glucose 120 H POC Glucose Lactic Acid 2.30 H* Calcium 7.7 L Ionized Calcium Phosphorus AST Alkaline Phosphatase Lactate Dehydrogenase CK-MB (CK-2) Troponin T C-Reactive Protein Total Protein Albumin LDL Cholesterol Direct PTH Intact Fluid Total Protein Salicylates Crossmatch 07/05/17 07/06/17 07/06/17 Unknown 03:25 03:25 WBC 17.7 H RBC 3.14 L Hgb 9.3 L Hct 27.8 L MCV MCHC RDW 15.7 H Plt Count 82 L Lymph % (Auto) 2.5 L [place] % (Auto) Lymph # 0.4 L [place] # 1.1 H Seg Neutrophils % 90.0 H Seg Neuts % (Manual) Lymphocytes % (Manual) Seg Neutrophils # 15.9 H Seg Neutrophils # Man Lymphocytes # (Manual) POC ABG pH POC ABG pCO2 POC ABG pO2 Sodium Potassium 3.3 L Chloride Carbon Dioxide BUN 44 H Creatinine 3.6 H Glucose 132 H POC Glucose Lactic Acid Calcium 7.4 L Ionized Calcium Phosphorus AST Alkaline Phosphatase Lactate Dehydrogenase CK-MB (CK-2) Troponin T C-Reactive Protein 9.90 H Total Protein Albumin LDL Cholesterol Direct PTH Intact Fluid Total Protein Salicylates Crossmatch 07/06/17 07/06/17 07/06/17 04:19 05:24 08:30 WBC RBC Hgb Hct MCV MCHC RDW Plt Count Lymph % (Auto) [place] % (Auto) Lymph # [place] # Seg Neutrophils % Seg Neuts % (Manual) Lymphocytes % (Manual) Seg Neutrophils # Seg Neutrophils # Man Lymphocytes # (Manual) POC ABG pH POC ABG pCO2 34.3 L POC ABG pO2 Sodium Potassium Chloride Carbon Dioxide BUN Creatinine Glucose POC Glucose 174 H Lactic Acid Calcium Ionized Calcium Phosphorus AST Alkaline Phosphatase Lactate Dehydrogenase 880 H CK-MB (CK-2) Troponin T C-Reactive Protein Total Protein 4.9 L Albumin LDL Cholesterol Direct PTH Intact Fluid Total Protein Salicylates Crossmatch 07/06/17 07/06/17 07/06/17 11:13 17:14 23:38 WBC RBC Hgb Hct MCV MCHC RDW Plt Count Lymph % (Auto) [place] % (Auto) Lymph # [place] # Seg Neutrophils % Seg Neuts % (Manual) Lymphocytes % (Manual) Seg Neutrophils # Seg Neutrophils # Man Lymphocytes # (Manual) POC ABG pH POC ABG pCO2 POC ABG pO2 Sodium Potassium Chloride Carbon Dioxide BUN Creatinine Glucose POC Glucose 216 H 211 H 122 H Lactic Acid Calcium Ionized Calcium Phosphorus AST Alkaline Phosphatase Lactate Dehydrogenase CK-MB (CK-2) Troponin T C-Reactive Protein Total Protein Albumin LDL Cholesterol Direct PTH Intact Fluid Total Protein Salicylates Crossmatch 07/06/17 07/07/17 07/07/17 Unknown 04:38 05:00 WBC 16.1 H RBC 3.00 L Hgb 8.9 L Hct 26.6 L MCV MCHC RDW 15.6 H Plt Count 106 L Lymph % (Auto) 4.1 L [place] % (Auto) 8.0 H Lymph # 0.7 L [place] # 1.3 H Seg Neutrophils % 86.6 H Seg Neuts % (Manual) Lymphocytes % (Manual) Seg Neutrophils # 13.9 H Seg Neutrophils # Man Lymphocytes # (Manual) POC ABG pH 7.455 H POC ABG pCO2 POC ABG pO2 134 H Sodium Potassium Chloride Carbon Dioxide BUN Creatinine Glucose POC Glucose Lactic Acid Calcium Ionized Calcium Phosphorus AST Alkaline Phosphatase Lactate Dehydrogenase CK-MB (CK-2) Troponin T C-Reactive Protein Total Protein Albumin LDL Cholesterol Direct PTH Intact Fluid Total Protein < 3.0 L Salicylates Crossmatch 07/07/17 07/07/17 07/07/17 05:00 05:17 11:33 WBC RBC Hgb Hct MCV MCHC RDW Plt Count Lymph % (Auto) [place] % (Auto) Lymph # [place] # Seg Neutrophils % Seg Neuts % (Manual) Lymphocytes % (Manual) Seg Neutrophils # Seg Neutrophils # Man Lymphocytes # (Manual) POC ABG pH POC ABG pCO2 POC ABG pO2 Sodium Potassium Chloride Carbon Dioxide BUN 30 H Creatinine 2.8 H Glucose 188 H POC Glucose 189 H 275 H Lactic Acid Calcium 7.9 L Ionized Calcium Phosphorus AST Alkaline Phosphatase Lactate Dehydrogenase CK-MB (CK-2) Troponin T C-Reactive Protein Total Protein Albumin LDL Cholesterol Direct PTH Intact Fluid Total Protein Salicylates Crossmatch 07/07/17 07/07/17 07/07/17 16:04 17:08 23:45 WBC RBC Hgb Hct MCV MCHC RDW Plt Count Lymph % (Auto) [place] % (Auto) Lymph # [place] # Seg Neutrophils % Seg Neuts % (Manual) Lymphocytes % (Manual) Seg Neutrophils # Seg Neutrophils # Man Lymphocytes # (Manual) POC ABG pH POC ABG pCO2 POC ABG pO2 126 H Sodium Potassium Chloride Carbon Dioxide BUN Creatinine Glucose POC Glucose 241 H 118 H Lactic Acid Calcium Ionized Calcium Phosphorus AST Alkaline Phosphatase Lactate Dehydrogenase CK-MB (CK-2) Troponin T C-Reactive Protein Total Protein Albumin LDL Cholesterol Direct PTH Intact Fluid Total Protein Salicylates Crossmatch 07/08/17 07/08/17 07/08/17 05:30 05:54 06:12 WBC 17.0 H RBC 3.27 L Hgb 9.5 L Hct 29.1 L MCV MCHC RDW 15.6 H Plt Count 133 L Lymph % (Auto) 4.6 L [place] % (Auto) 9.2 H Lymph # 0.8 L [place] # 1.6 H Seg Neutrophils % 83.9 H Seg Neuts % (Manual) Lymphocytes % (Manual) Seg Neutrophils # 14.3 H Seg Neutrophils # Man Lymphocytes # (Manual) POC ABG pH 7.477 H POC ABG pCO2 POC ABG pO2 118 H Sodium Potassium Chloride Carbon Dioxide BUN Creatinine Glucose POC Glucose 199 H Lactic Acid Calcium Ionized Calcium Phosphorus AST Alkaline Phosphatase Lactate Dehydrogenase CK-MB (CK-2) Troponin T C-Reactive Protein Total Protein Albumin LDL Cholesterol Direct PTH Intact Fluid Total Protein Salicylates Crossmatch 07/08/17 07/08/17 07/08/17 06:12 11:37 17:21 WBC RBC Hgb Hct MCV MCHC RDW Plt Count Lymph % (Auto) [place] % (Auto) Lymph # [place] # Seg Neutrophils % Seg Neuts % (Manual) Lymphocytes % (Manual) Seg Neutrophils # Seg Neutrophils # Man Lymphocytes # (Manual) POC ABG pH POC ABG pCO2 POC ABG pO2 Sodium Potassium Chloride Carbon Dioxide BUN 44 H Creatinine 3.4 H Glucose 190 H POC Glucose 236 H 186 H Lactic Acid Calcium 7.8 L Ionized Calcium Phosphorus AST Alkaline Phosphatase Lactate Dehydrogenase CK-MB (CK-2) Troponin T C-Reactive Protein Total Protein Albumin LDL Cholesterol Direct PTH Intact Fluid Total Protein Salicylates Crossmatch 07/08/17 07/09/17 07/09/17 23:09 04:27 05:02 WBC 17.8 H RBC 2.88 L Hgb 8.5 L Hct 25.6 L MCV MCHC RDW 15.5 H Plt Count Lymph % (Auto) 4.6 L [place] % (Auto) 10.2 H Lymph # 0.8 L [place] # 1.8 H Seg Neutrophils % 83.4 H Seg Neuts % (Manual) Lymphocytes % (Manual) Seg Neutrophils # 14.8 H Seg Neutrophils # Man Lymphocytes # (Manual) POC ABG pH POC ABG pCO2 POC ABG pO2 132 H Sodium Potassium Chloride Carbon Dioxide BUN Creatinine Glucose POC Glucose 203 H Lactic Acid Calcium Ionized Calcium Phosphorus AST Alkaline Phosphatase Lactate Dehydrogenase CK-MB (CK-2) Troponin T C-Reactive Protein Total Protein Albumin LDL Cholesterol Direct PTH Intact Fluid Total Protein Salicylates Crossmatch 07/09/17 07/09/17 07/09/17 05:02 05:33 12:07 WBC RBC Hgb Hct MCV MCHC RDW Plt Count Lymph % (Auto) [place] % (Auto) Lymph # [place] # Seg Neutrophils % Seg Neuts % (Manual) Lymphocytes % (Manual) Seg Neutrophils # Seg Neutrophils # Man Lymphocytes # (Manual) POC ABG pH POC ABG pCO2 POC ABG pO2 Sodium Potassium Chloride Carbon Dioxide BUN 61 H Creatinine 4.0 H Glucose 183 H POC Glucose 177 H 276 H Lactic Acid Calcium 7.6 L Ionized Calcium Phosphorus AST Alkaline Phosphatase Lactate Dehydrogenase CK-MB (CK-2) Troponin T C-Reactive Protein Total Protein Albumin LDL Cholesterol Direct PTH Intact Fluid Total Protein Salicylates Crossmatch 07/09/17 07/10/17 07/10/17 18:54 03:50 03:50 WBC 16.8 H RBC 2.77 L Hgb 8.1 L Hct 24.9 L MCV MCHC RDW 15.7 H Plt Count Lymph % (Auto) 4.3 L [place] % (Auto) 10.8 H Lymph # 0.7 L [place] # 1.8 H Seg Neutrophils % 83.5 H Seg Neuts % (Manual) Lymphocytes % (Manual) Seg Neutrophils # 14.1 H Seg Neutrophils # Man Lymphocytes # (Manual) POC ABG pH POC ABG pCO2 POC ABG pO2 Sodium Potassium Chloride Carbon Dioxide BUN 31 H Creatinine 2.5 H Glucose 129 H POC Glucose 178 H Lactic Acid Calcium 8.1 L Ionized Calcium Phosphorus AST Alkaline Phosphatase Lactate Dehydrogenase CK-MB (CK-2) Troponin T C-Reactive Protein Total Protein Albumin LDL Cholesterol Direct PTH Intact Fluid Total Protein Salicylates Crossmatch 07/10/17 07/10/17 07/10/17 05:41 10:02 10:07 WBC 16.3 H RBC 2.66 L Hgb 7.9 L Hct 23.5 L MCV MCHC RDW 16.1 H Plt Count Lymph % (Auto) 4.8 L [place] % (Auto) 9.6 H Lymph # 0.8 L [place] # 1.6 H Seg Neutrophils % 84.0 H Seg Neuts % (Manual) Lymphocytes % (Manual) Seg Neutrophils # 13.7 H Seg Neutrophils # Man Lymphocytes # (Manual) POC ABG pH POC ABG pCO2 POC ABG pO2 Sodium Potassium Chloride Carbon Dioxide BUN 35 H Creatinine 2.6 H Glucose 196 H POC Glucose 160 H Lactic Acid Calcium 7.9 L Ionized Calcium Phosphorus AST Alkaline Phosphatase Lactate Dehydrogenase CK-MB (CK-2) Troponin T C-Reactive Protein Total Protein Albumin LDL Cholesterol Direct PTH Intact Fluid Total Protein Salicylates Crossmatch 07/10/17 07/10/17 07/10/17 11:21 14:14 16:36 WBC RBC Hgb Hct MCV MCHC RDW Plt Count Lymph % (Auto) [place] % (Auto) Lymph # [place] # Seg Neutrophils % Seg Neuts % (Manual) Lymphocytes % (Manual) Seg Neutrophils # Seg Neutrophils # Man Lymphocytes # (Manual) POC ABG pH POC ABG pCO2 POC ABG pO2 138 H Sodium Potassium Chloride Carbon Dioxide BUN Creatinine Glucose POC Glucose 206 H 133 H Lactic Acid Calcium Ionized Calcium Phosphorus AST Alkaline Phosphatase Lactate Dehydrogenase CK-MB (CK-2) Troponin T C-Reactive Protein Total Protein Albumin LDL Cholesterol Direct PTH Intact Fluid Total Protein Salicylates Crossmatch 07/11/17 07/11/17 07/11/17 04:08 08:19 13:58 WBC RBC Hgb Hct MCV MCHC RDW Plt Count Lymph % (Auto) [place] % (Auto) Lymph # [place] # Seg Neutrophils % Seg Neuts % (Manual) Lymphocytes % (Manual) Seg Neutrophils # Seg Neutrophils # Man Lymphocytes # (Manual) POC ABG pH POC ABG pCO2 POC ABG pO2 Sodium Potassium Chloride Carbon Dioxide BUN 45 H Creatinine 3.1 H Glucose POC Glucose 155 H 199 H Lactic Acid Calcium 7.8 L Ionized Calcium Phosphorus AST Alkaline Phosphatase Lactate Dehydrogenase CK-MB (CK-2) Troponin T C-Reactive Protein Total Protein Albumin LDL Cholesterol Direct PTH Intact Fluid Total Protein Salicylates Crossmatch 07/11/17 07/11/17 07/12/17 17:52 23:39 04:37 WBC 12.9 H RBC 2.62 L Hgb 7.6 L Hct 24.0 L MCV MCHC RDW 16.0 H Plt Count Lymph % (Auto) 4.8 L [place] % (Auto) 8.6 H Lymph # 0.6 L [place] # 1.1 H Seg Neutrophils % 84.8 H Seg Neuts % (Manual) Lymphocytes % (Manual) Seg Neutrophils # 10.9 H Seg Neutrophils # Man Lymphocytes # (Manual) POC ABG pH POC ABG pCO2 POC ABG pO2 Sodium Potassium Chloride Carbon Dioxide BUN Creatinine Glucose POC Glucose 133 H 129 H Lactic Acid Calcium Ionized Calcium Phosphorus AST Alkaline Phosphatase Lactate Dehydrogenase CK-MB (CK-2) Troponin T C-Reactive Protein Total Protein Albumin LDL Cholesterol Direct PTH Intact Fluid Total Protein Salicylates Crossmatch 07/12/17 07/12/17 07/12/17 04:37 05:39 11:41 WBC RBC Hgb Hct MCV MCHC RDW Plt Count Lymph % (Auto) [place] % (Auto) Lymph # [place] # Seg Neutrophils % Seg Neuts % (Manual) Lymphocytes % (Manual) Seg Neutrophils # Seg Neutrophils # Man Lymphocytes # (Manual) POC ABG pH POC ABG pCO2 POC ABG pO2 Sodium Potassium Chloride Carbon Dioxide BUN 29 H Creatinine 2.1 H Glucose 137 H POC Glucose 149 H 203 H Lactic Acid Calcium 8.0 L Ionized Calcium Phosphorus AST Alkaline Phosphatase Lactate Dehydrogenase CK-MB (CK-2) Troponin T C-Reactive Protein Total Protein Albumin LDL Cholesterol Direct PTH Intact Fluid Total Protein Salicylates Crossmatch 07/13/17 07/13/17 07/13/17 04:46 05:35 12:14 WBC RBC Hgb Hct MCV MCHC RDW Plt Count Lymph % (Auto) [place] % (Auto) Lymph # [place] # Seg Neutrophils % Seg Neuts % (Manual) Lymphocytes % (Manual) Seg Neutrophils # Seg Neutrophils # Man Lymphocytes # (Manual) POC ABG pH POC ABG pCO2 POC ABG pO2 Sodium Potassium Chloride Carbon Dioxide BUN 46 H Creatinine 2.8 H Glucose 128 H POC Glucose 139 H 243 H Lactic Acid Calcium 7.5 L Ionized Calcium Phosphorus AST Alkaline Phosphatase Lactate Dehydrogenase CK-MB (CK-2) Troponin T C-Reactive Protein Total Protein Albumin LDL Cholesterol Direct PTH Intact Fluid Total Protein Salicylates Crossmatch 07/13/17 07/13/17 07/14/17 17:33 23:48 05:32 WBC RBC Hgb Hct MCV MCHC RDW Plt Count Lymph % (Auto) [place] % (Auto) Lymph # [place] # Seg Neutrophils % Seg Neuts % (Manual) Lymphocytes % (Manual) Seg Neutrophils # Seg Neutrophils # Man Lymphocytes # (Manual) POC ABG pH POC ABG pCO2 POC ABG pO2 Sodium Potassium Chloride Carbon Dioxide BUN Creatinine Glucose POC Glucose 193 H 133 H 143 H Lactic Acid Calcium Ionized Calcium Phosphorus AST Alkaline Phosphatase Lactate Dehydrogenase CK-MB (CK-2) Troponin T C-Reactive Protein Total Protein Albumin LDL Cholesterol Direct PTH Intact Fluid Total Protein Salicylates Crossmatch 07/14/17 07/14/17 07/15/17 11:43 17:49 05:09 WBC RBC Hgb Hct MCV MCHC RDW Plt Count Lymph % (Auto) [place] % (Auto) Lymph # [place] # Seg Neutrophils % Seg Neuts % (Manual) Lymphocytes % (Manual) Seg Neutrophils # Seg Neutrophils # Man Lymphocytes # (Manual) POC ABG pH POC ABG pCO2 POC ABG pO2 Sodium Potassium Chloride Carbon Dioxide BUN Creatinine Glucose POC Glucose 143 H 195 H 61 L Lactic Acid Calcium Ionized Calcium Phosphorus AST Alkaline Phosphatase Lactate Dehydrogenase CK-MB (CK-2) Troponin T C-Reactive Protein Total Protein Albumin LDL Cholesterol Direct PTH Intact Fluid Total Protein Salicylates Crossmatch 07/15/17 07/15/17 07/15/17 12:00 12:52 12:52 WBC 13.6 H RBC 1.76 L Hgb 5.2 L* Hct 15.8 L* MCV MCHC RDW 16.1 H Plt Count Lymph % (Auto) 4.7 L [place] % (Auto) 8.3 H Lymph # 0.6 L [place] # 1.1 H Seg Neutrophils % 85.4 H Seg Neuts % (Manual) Lymphocytes % (Manual) Seg Neutrophils # 11.7 H Seg Neutrophils # Man Lymphocytes # (Manual) POC ABG pH POC ABG pCO2 POC ABG pO2 Sodium Potassium Chloride Carbon Dioxide BUN 54 H Creatinine 2.7 H Glucose 157 H POC Glucose 164 H Lactic Acid Calcium 7.1 L Ionized Calcium Phosphorus 1.90 L AST 50 H Alkaline Phosphatase 152 H Lactate Dehydrogenase CK-MB (CK-2) Troponin T C-Reactive Protein Total Protein 4.7 L Albumin 1.6 L LDL Cholesterol Direct PTH Intact Fluid Total Protein Salicylates Crossmatch 07/15/17 07/15/17 07/15/17 12:52 14:49 14:49 WBC RBC Hgb 6.5 L Hct 19.6 L* MCV MCHC RDW Plt Count Lymph % (Auto) [place] % (Auto) Lymph # [place] # Seg Neutrophils % Seg Neuts % (Manual) Lymphocytes % (Manual) Seg Neutrophils # Seg Neutrophils # Man Lymphocytes # (Manual) POC ABG pH POC ABG pCO2 POC ABG pO2 Sodium Potassium Chloride Carbon Dioxide BUN Creatinine Glucose POC Glucose Lactic Acid Calcium Ionized Calcium Phosphorus AST Alkaline Phosphatase Lactate Dehydrogenase CK-MB (CK-2) Troponin T C-Reactive Protein Total Protein Albumin LDL Cholesterol Direct PTH Intact 159.8 H Fluid Total Protein Salicylates Crossmatch See Detail 07/15/17 07/15/17 07/16/17 17:54 23:45 02:33 WBC RBC Hgb 7.0 L Hct 20.6 L MCV MCHC RDW Plt Count Lymph % (Auto) [place] % (Auto) Lymph # [place] # Seg Neutrophils % Seg Neuts % (Manual) Lymphocytes % (Manual) Seg Neutrophils # Seg Neutrophils # Man Lymphocytes # (Manual) POC ABG pH POC ABG pCO2 POC ABG pO2 Sodium Potassium Chloride Carbon Dioxide BUN Creatinine Glucose POC Glucose 216 H 126 H Lactic Acid Calcium Ionized Calcium Phosphorus AST Alkaline Phosphatase Lactate Dehydrogenase CK-MB (CK-2) Troponin T C-Reactive Protein Total Protein Albumin LDL Cholesterol Direct PTH Intact Fluid Total Protein Salicylates Crossmatch 07/16/17 07/16/17 05:32 08:32 WBC RBC Hgb 6.2 L Hct 18.9 L* MCV MCHC RDW Plt Count Lymph % (Auto) [place] % (Auto) Lymph # [place] # Seg Neutrophils % Seg Neuts % (Manual) Lymphocytes % (Manual) Seg Neutrophils # Seg Neutrophils # Man Lymphocytes # (Manual) POC ABG pH POC ABG pCO2 POC ABG pO2 Sodium Potassium Chloride Carbon Dioxide BUN Creatinine Glucose POC Glucose 174 H Lactic Acid Calcium Ionized Calcium Phosphorus AST Alkaline Phosphatase Lactate Dehydrogenase CK-MB (CK-2) Troponin T C-Reactive Protein Total Protein Albumin LDL Cholesterol Direct PTH Intact Fluid Total Protein Salicylates Crossmatch Allied health notes reviewed: nursing
[2017-07-16] MEDS ORDERED: PROVENTIL IH PRN (12:27)
[2017-07-16] MEDS ORDERED: NACL 0.9% 250ML 250 ML ONE (12:41)
[2017-07-16 12:55] LABS: ISTAT Base Excess 5; ISTAT HCO3 28.2; ISTAT PCO2 35.2 (35-45); ISTAT PH 7.511 (7.35-7.45); ISTAT PO2 155 (80-105); ISTAT SO2 100; ISTAT TCO2 29
--- NOTE | 2017-07-16 13:03 | Progress Note ---
Assessment and Plan Assessment: 1) Shock after cardiac arrest (?cardiogenic ?hypovolemic ?septic): shock resolved. leukocytosis went up possibly reactive from severe anemia Septic component etiology unclear ? colitis (CT abd negative). CRP=9 2) Seizures ? 3) DM-uncontrolled with DKA 4) ESRD on HD 5) Anemia still low Hg / thrombocytopenia resolved - Hg dropped 5.2, received blood transfusion 6) Bloody Diarrhea versus melena ? colitis ?GI bleed. Hemo-occult + 7) Pleural effusion s/p thoracenthesis - transudate Plan: -flagyl s/p 10 days -monitor leukocytosis off antibiotics I am signing off Thank you Dr Moore for your consultation, will follow up with you. Laura Crocker MD Infectious Diseases Specialist [facility] [phone] [id number] [phone] Subjective Date of service: 07/16/17 Principal diagnosis: Acute Hypoxemic Resp Failure; S/P Cardiac Arrest; Hyperosmolar Non-ketotic Interval history: Remains on CPAP +T feeds No fever Microbiology: Blood cultures: 07/02 ngtd Urine cultures: Respiratory cultures: 07/02 Sandra Pleural fluid 07/06: ngtd Current Antimicrobials: none Previous Antimicrobials: Zosyn 07/02 Vanco 07/02 metronidazole 07/06 Objective - Exam Narrative Exam: General appearance: sedated on the vent Eyes: anicteric sclerae, moist conjunctivae; no lid-lag; PERRLA HENT: Atraumatic; oropharynx +ETT +NGT Neck: Trachea midline; supple, no thyromegaly or lymphadenopathy Lungs: CTA, CV: rrr Abdomen: Soft, non-tender Extremities: peripheral edema Skin: Normal temperature, turgor and texture; no rash, ulcers or subcutaneous nodules Psych: unable to eval . Neuro: unable to eval Lines: right IJ HD, condom cath - Constitutional Vitals: Vital Signs Temp Pulse Resp BP Pulse Ox 97.6 F 80 10 L 128/70 100 07/16/17 12:00 07/16/17 12:41 07/16/17 12:41 07/16/17 12:41 07/16/17 12:41 Temperature -Last 24 Hours Temperature 97.6 F Temperature 97.2 F Temperature 98.4 F Temperature 98.6 F Temperature 98.9 F Temperature 97.4 F - Labs CBC & Chem 7: 07/16/17 08:32 07/15/17 12:52 Labs: Abnormal lab results 07/15/17 07/15/17 07/15/17 Range/Units 12:52 12:52 12:52 WBC 13.6 H (4.5-11.0) K/mm3 RBC 1.76 L (3.65-5.03) M/mm3 Hgb 5.2 L* (11.8-15.2) gm/dl Hct 15.8 L* (35.5-45.6) % RDW 16.1 H (13.2-15.2) % Lymph % (Auto) 4.7 L (13.4-35.0) % [place] % (Auto) 8.3 H (0.0-7.3) % Lymph # 0.6 L (1.2-5.4) K/mm3 Evans # 1.1 H (0.0-0.8) K/mm3 Seg Neutrophils % 85.4 H (40.0-70.0) % Seg Neutrophils # 11.7 H (1.8-7.7) K/mm3 POC ABG pH (7.35-7.45) POC ABG pO2 (80-105) BUN 54 H (9-20) mg/dL Creatinine 2.7 H (0.8-1.5) mg/dL Glucose 157 H (75-100) mg/dL POC Glucose (70-105) Calcium 7.1 L (8.4-10.2) mg/dL Phosphorus 1.90 L (2.5-4.5) mg/dL AST 50 H (5-40) units/L Alkaline Phosphatase 152 H (35-129) units/L Total Protein 4.7 L (6.3-8.2) g/dL Albumin 1.6 L (3.9-5) g/dL PTH Intact 159.8 H (15-65) pg/mL Crossmatch [place] 07/15/17 07/15/17 07/15/17 Range/Units 14:49 14:49 17:54 WBC (4.5-11.0) K/mm3 RBC (3.65-5.03) M/mm3 Hgb 6.5 L (11.8-15.2) gm/dl Hct 19.6 L* (35.5-45.6) % RDW (13.2-15.2) % Lymph % (Auto) (13.4-35.0) % Evans % (Auto) (0.0-7.3) % Lymph # (1.2-5.4) K/mm3 Evans # (0.0-0.8) K/mm3 Seg Neutrophils % (40.0-70.0) % Seg Neutrophils # (1.8-7.7) K/mm3 POC ABG pH (7.35-7.45) POC ABG pO2 (80-105) BUN (9-20) mg/dL Creatinine (0.8-1.5) mg/dL Glucose (75-100) mg/dL POC Glucose 216 H (70-105) Calcium (8.4-10.2) mg/dL Phosphorus (2.5-4.5) mg/dL AST (5-40) units/L Alkaline Phosphatase (35-129) units/L Total Protein (6.3-8.2) g/dL Albumin (3.9-5) g/dL PTH Intact (15-65) pg/mL Crossmatch [place] See Detail 07/15/17 07/16/17 07/16/17 Range/Units 23:45 02:33 05:32 WBC (4.5-11.0) K/mm3 RBC (3.65-5.03) M/mm3 Hgb 7.0 L (11.8-15.2) gm/dl Hct 20.6 L (35.5-45.6) % RDW (13.2-15.2) % Lymph % (Auto) (13.4-35.0) % Evans % (Auto) (0.0-7.3) % Lymph # (1.2-5.4) K/mm3 Evans # (0.0-0.8) K/mm3 Seg Neutrophils % (40.0-70.0) % Seg Neutrophils # (1.8-7.7) K/mm3 POC ABG pH (7.35-7.45) POC ABG pO2 (80-105) BUN (9-20) mg/dL Creatinine (0.8-1.5) mg/dL Glucose (75-100) mg/dL POC Glucose 126 H 174 H (70-105) Calcium (8.4-10.2) mg/dL Phosphorus (2.5-4.5) mg/dL AST (5-40) units/L Alkaline Phosphatase (35-129) units/L Total Protein (6.3-8.2) g/dL Albumin (3.9-5) g/dL PTH Intact (15-65) pg/mL Crossmatch [place] 07/16/17 07/16/17 07/16/17 Range/Units 08:32 11:59 12:46 WBC (4.5-11.0) K/mm3 RBC (3.65-5.03) M/mm3 Hgb 6.2 L (11.8-15.2) gm/dl Hct 18.9 L* (35.5-45.6) % RDW (13.2-15.2) % Lymph % (Auto) (13.4-35.0) % [place] % (Auto) (0.0-7.3) % Lymph # (1.2-5.4) K/mm3 Evans # (0.0-0.8) K/mm3 Seg Neutrophils % (40.0-70.0) % Seg Neutrophils # (1.8-7.7) K/mm3 POC ABG pH 7.511 H (7.35-7.45) POC ABG pO2 155 H (80-105) BUN (9-20) mg/dL Creatinine (0.8-1.5) mg/dL Glucose (75-100) mg/dL POC Glucose 206 H (70-105) Calcium (8.4-10.2) mg/dL Phosphorus (2.5-4.5) mg/dL AST (5-40) units/L Alkaline Phosphatase (35-129) units/L Total Protein (6.3-8.2) g/dL Albumin (3.9-5) g/dL PTH Intact (15-65) pg/mL Crossmatch [place]
--- NOTE | 2017-07-16 14:47 | Progress Note ---
Assessment and Plan - Patient Problems (1) Respiratory failure Current Visit: Yes Status: Acute Qualifiers: Chronicity: acute Respiratory failure complication: hypoxia and hypercapnia Qualified Code(s): J96.01 - Acute respiratory failure with hypoxia ; J96.02 - Acute respiratory failure with hypercapnia; J96.02 - Acute respiratory failure with hypercapnia; J96.02 - Acute respiratory failure with hypercapnia Plan to address problem: Plan on Trach and PEG placement. Risks of infection,bleeding,injury to adjacent structures,need for other procedures, etc discussed with his son, Sundeep, via phone call. He understands and consents to proceed. We will schedule at next available time Subjective Date of service: 07/16/17 Patient Reports: Positive: other (remains on vent and unresponsive) Objective Vital Signs - 12hr 07/16/17 07/16/17 07/16/17 03:00 03:36 04:01 Temperature 98.4 F Pulse Rate 97 H 89 Pulse Rate [ Anterior Bilateral Throughout] Pulse Rate [ From Monitor] Respiratory 11 L 16 Rate Respiratory Rate [Anterior Bilateral Throughout] Blood Pressure 122/68 108/54 O2 Sat by Pulse 100 100 Oximetry 07/16/17 07/16/17 07/16/17 04:35 05:00 06:00 Temperature Pulse Rate 83 85 85 Pulse Rate [ Anterior Bilateral Throughout] Pulse Rate [ From Monitor] Respiratory 16 16 Rate Respiratory Rate [Anterior Bilateral Throughout] Blood Pressure 108/54 109/63 119/59 O2 Sat by Pulse 100 100 100 Oximetry 07/16/17 07/16/17 07/16/17 07:00 08:00 08:18 Temperature 97.2 F L Pulse Rate 90 88 89 Pulse Rate [ Anterior Bilateral Throughout] Pulse Rate [ 88 From Monitor] Respiratory 11 L 11 L 15 Rate Respiratory Rate [Anterior Bilateral Throughout] Blood Pressure 122/62 124/65 124/65 O2 Sat by Pulse 100 100 100 Oximetry 07/16/17 07/16/17 07/16/17 08:24 08:47 09:00 Temperature Pulse Rate 87 Pulse Rate [ 86 90 Anterior Bilateral Throughout] Pulse Rate [ From Monitor] Respiratory 12 Rate Respiratory 15 10 L Rate [Anterior Bilateral Throughout] Blood Pressure 119/66 O2 Sat by Pulse 100 Oximetry 07/16/17 07/16/17 07/16/17 10:00 11:00 12:00 Temperature 97.6 F Pulse Rate 80 76 Pulse Rate [ Anterior Bilateral Throughout] Pulse Rate [ 76 83 From Monitor] Respiratory 13 11 L Rate Respiratory Rate [Anterior Bilateral Throughout] Blood Pressure 107/66 106/62 O2 Sat by Pulse 100 98 Oximetry 07/16/17 07/16/17 07/16/17 12:01 12:41 12:59 Temperature 97.6 F Pulse Rate 85 80 82 Pulse Rate [ Anterior Bilateral Throughout] Pulse Rate [ From Monitor] Respiratory 10 L 10 L 9 L Rate Respiratory Rate [Anterior Bilateral Throughout] Blood Pressure 128/70 128/70 132/72 O2 Sat by Pulse 100 100 100 Oximetry 07/16/17 07/16/17 07/16/17 13:00 13:14 13:44 Temperature 97.6 F 94 F L Pulse Rate 83 79 76 Pulse Rate [ Anterior Bilateral Throughout] Pulse Rate [ From Monitor] Respiratory 9 L 24 12 Rate Respiratory Rate [Anterior Bilateral Throughout] Blood Pressure 132/72 131/69 118/67 O2 Sat by Pulse 100 100 100 Oximetry 07/16/17 07/16/17 14:00 14:14 Temperature 94 F L 94 F L Pulse Rate 74 83 Pulse Rate [ Anterior Bilateral Throughout] Pulse Rate [ From Monitor] Respiratory 12 10 L Rate Respiratory Rate [Anterior Bilateral Throughout] Blood Pressure 122/69 130/67 O2 Sat by Pulse 100 100 Oximetry - General physical appearance no distress - Neck trachea midline - Abdomen soft, not tender - Labs 07/16/17 08:32 07/15/17 12:52
--- NOTE | 2017-07-16 16:54 | Progress Note ---
Assessment and Plan Assessment and plan: Anoxic brain injury Status post cardiac arrest Seizure disorder Sepsis with hypotension History of diarrhea DKA with diabetic coma ESRD on HD - Patient is intubated and on mechanical ventilation, off sedation - Finished antibiotics - Patient was treated according to DKA protocol now resolved and on long-acting insulin DVT prophylaxis - Heparin Disposition - Patient will have trach on Sunday - Continue ICU care Severe Anemia - Hemoglobin this morning was low and currently he is on blood transfusion. - Will monitor H&H closely The high probability of a clinically significant, sudden or life threatening deterioration of the [CV, neurology, renal] system(s) required my full and direct attention, intervention and personal management. The aggregate critical care time was [32] minutes. This time is in addition to time spent performing reported procedures but includes the following: [x] Data Review and interpretation [x] Patient assessment and monitoring of vital signs [x] Documentation [x] Medication orders and management History Interval history: Patient was seen and evaluated this morning, patient in non communicative. Patient is off sedation. I have discussed the plan with his son yesterday. Hospitalist Physical - Physical exam Narrative exam: Patient is intubated and on mechanical ventilation. The patient appeared well nourished and normally developed. Vital signs as documented. Head exam is unremarkable. No scleral icterus . Neck is without jugular venous distension, thyromegaly, or carotid bruits. Lungs are clear to auscultation. Cardiac exam reveals regular rate and Rhythm. First and second heart sounds normal. No murmurs, rubs or gallops. Abdominal exam reveals normal bowel sounds, no masses, no organomegaly and no aortic enlargement. Extremities are nonedematous and both femoral and pedal pulses are normal. 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 He is off sedation. - Constitutional Vitals: Temp Pulse Resp BP Pulse Ox 94.1 F L 84 10 L 119/63 100 07/16/17 16:03 07/16/17 16:03 07/16/17 16:03 07/16/17 16:03 07/16/17 16:03 General appearance: Present: mild distress, other (intubated, unresponsive) Results - Labs CBC & Chem 7: 07/16/17 08:32 07/15/17 12:52 Labs: Laboratory Last Values WBC 13.6 K/mm3 (4.5-11.0) H 07/15/17 12:52 RBC 1.76 M/mm3 (3.65-5.03) L 07/15/17 12:52 Hgb 6.2 gm/dl (11.8-15.2) L 07/16/17 08:32 Hct 18.9 % (35.5-45.6) L* 07/16/17 08:32 MCV 90 fl (84-94) 07/15/17 12:52 MCH 30 pg (28-32) 07/15/17 12:52 MCHC 33 % (32-34) 07/15/17 12:52 RDW 16.1 % (13.2-15.2) H 07/15/17 12:52 Plt Count 205 K/mm3 (140-440) 07/15/17 12:52 Lymph % (Auto) 4.7 % (13.4-35.0) L 07/15/17 12:52 [place] % (Auto) 8.3 % (0.0-7.3) H 07/15/17 12:52 Eos % (Auto) 1.3 % (0.0-4.3) 07/15/17 12:52 Baso % (Auto) 0.3 % (0.0-1.8) 07/15/17 12:52 Lymph # 0.6 K/mm3 (1.2-5.4) L 07/15/17 12:52 [place] # 1.1 K/mm3 (0.0-0.8) H 07/15/17 12:52 Eos # 0.2 K/mm3 (0.0-0.4) 07/15/17 12:52 Baso # 0.0 K/mm3 (0.0-0.1) 07/15/17 12:52 Add Manual Diff Complete 07/05/17 Unknown Total Counted 100 07/05/17 Unknown Seg Neutrophils % 85.4 % (40.0-70.0) H 07/15/17 12:52 Seg Neuts % (Manual) 89.0 % (40.0-70.0) H 07/05/17 Unknown Band Neutrophils % 1.0 % 07/05/17 Unknown Lymphocytes % (Manual) 7.0 % (13.4-35.0) L 07/05/17 Unknown Reactive Lymphs % (Man) 0 % 07/05/17 Unknown Monocytes % (Manual) 3.0 % (0.0-7.3) 07/05/17 Unknown Eosinophils % (Manual) 0 % (0.0-4.3) 07/05/17 Unknown Basophils % (Manual) 0 % (0.0-1.8) 07/05/17 Unknown Metamyelocytes % 0 % 07/05/17 Unknown Myelocytes % 0 % 07/05/17 Unknown Promyelocytes % 0 % 07/05/17 Unknown Blast Cells % 0 % 07/05/17 Unknown Nucleated RBC % Not Reportable 07/05/17 Unknown Seg Neutrophils # 11.7 K/mm3 (1.8-7.7) H 07/15/17 12:52 Seg Neutrophils # Man 19.8 K/mm3 (1.8-7.7) H 07/05/17 Unknown Band Neutrophils # 0.2 K/mm3 07/05/17 Unknown Lymphocytes # (Manual) 1.6 K/mm3 (1.2-5.4) 07/05/17 Unknown Abs React Lymphs (Man) 0.0 K/mm3 07/05/17 Unknown Monocytes # (Manual) 0.7 K/mm3 (0.0-0.8) 07/05/17 Unknown Eosinophils # (Manual) 0.0 K/mm3 (0.0-0.4) 07/05/17 Unknown Basophils # (Manual) 0.0 K/mm3 (0.0-0.1) 07/05/17 Unknown Metamyelocytes # 0.0 K/mm3 07/05/17 Unknown Myelocytes # 0.0 K/mm3 07/05/17 Unknown Promyelocytes # 0.0 K/mm3 07/05/17 Unknown Blast Cells # 0.0 K/mm3 07/05/17 Unknown WBC Morphology Not Reportable 07/05/17 Unknown Hypersegmented Neuts Not Reportable 07/05/17 Unknown Hyposegmented Neuts Not Reportable 07/05/17 Unknown Hypogranular Neuts Not Reportable 07/05/17 Unknown Smudge Cells Not Reportable 07/05/17 Unknown Toxic Granulation Not Reportable 07/05/17 Unknown Toxic Vacuolation Not Reportable 07/05/17 Unknown Dohle Bodies Not Reportable 07/05/17 Unknown Pelger-Huet Anomaly Not Reportable 07/05/17 Unknown [place] Rods Not Reportable 07/05/17 Unknown Platelet Estimate Appears decreased 07/05/17 Unknown Clumped Platelets Not Reportable 07/05/17 Unknown Plt Clumps, EDTA Not Reportable 07/05/17 Unknown Large Platelets Not Reportable 07/05/17 Unknown Giant Platelets Not Reportable 07/05/17 Unknown Platelet Satelliting Not Reportable 07/05/17 Unknown Plt Morphology Comment Not Reportable 07/05/17 Unknown RBC Morphology Not Reportable 07/05/17 Unknown Dimorphic RBCs Not Reportable 07/05/17 Unknown Polychromasia Not Reportable 07/05/17 Unknown Hypochromasia Not Reportable 07/05/17 Unknown Poikilocytosis 1+ 07/05/17 Unknown Anisocytosis 1+ 07/05/17 Unknown Microcytosis Few 07/05/17 Unknown Macrocytosis Not Reportable 07/05/17 Unknown Spherocytes Not Reportable 07/05/17 Unknown Pappenheimer Bodies Not Reportable 07/05/17 Unknown Sickle Cells Not Reportable 07/05/17 Unknown Target Cells Not Reportable 07/05/17 Unknown Tear Drop Cells Not Reportable 07/05/17 Unknown Ovalocytes Not Reportable 07/05/17 Unknown Helmet Cells Not Reportable 07/05/17 Unknown Kim-[place] Bodies Not Reportable 07/05/17 Unknown [place] Rings Not Reportable 07/05/17 Unknown Bianca Cells Not Reportable 07/05/17 Unknown Bite Cells Not Reportable 07/05/17 Unknown Crenated Cell Not Reportable 07/05/17 Unknown Elliptocytes Not Reportable 07/05/17 Unknown Acanthocytes (Spur) Not Reportable 07/05/17 Unknown Rouleaux Not Reportable 07/05/17 Unknown Hemoglobin C Crystals Not Reportable 07/05/17 Unknown Schistocytes Not Reportable 07/05/17 Unknown Malaria parasites Not Reportable 07/05/17 Unknown Morales Bodies Not Reportable 07/05/17 Unknown Hem Pathologist Commnt No 07/05/17 Unknown PT 12.9 Sec. (12.2-14.9) 07/06/17 08:30 INR 0.93 (0.87-1.13) 07/06/17 08:30 Heparin Anti-Xa, Unfract Negative (Negative) 07/10/17 10:07 POC ABG pH 7.511 (7.35-7.45) H 07/16/17 12:46 POC ABG pCO2 35.2 (35-45) 07/16/17 12:46 POC ABG pO2 155 (80-105) H 07/16/17 12:46 POC ABG HCO3 28.2 07/16/17 12:46 POC ABG Total CO2 29 07/16/17 12:46 POC ABG O2 Sat 100 07/16/17 12:46 POC ABG Base Excess 5 07/16/17 12:46 FiO2 28 % 07/16/17 12:46 Sodium 137 mmol/L (137-145) 07/15/17 12:52 Potassium 3.8 mmol/L (3.6-5.0) 07/15/17 12:52 Chloride 98.7 mmol/L (98-107) 07/15/17 12:52 Carbon Dioxide 27 mmol/L (22-30) 07/15/17 12:52 Anion Gap 15 mmol/L 07/15/17 12:52 BUN 54 mg/dL (9-20) H 07/15/17 12:52 Creatinine 2.7 mg/dL (0.8-1.5) H 07/15/17 12:52 Estimated GFR 28 ml/min 07/15/17 12:52 BUN/Creatinine Ratio 20 % 07/15/17 12:52 Glucose 157 mg/dL (75-100) H 07/15/17 12:52 POC Glucose 206 (70-105) H 07/16/17 11:59 Osmolality 357 Mosm/kg 07/02/17 15:35 Lactic Acid 2.30 mmol/L (0.7-2.0) H* 07/05/17 Unknown Calcium 7.1 mg/dL (8.4-10.2) L 07/15/17 12:52 Ionized Calcium 4.6 mg/dL (4.8-5.6) L 07/04/17 14:10 Phosphorus 1.90 mg/dL (2.5-4.5) L 07/15/17 12:52 Magnesium 1.80 mg/dL (1.7-2.3) 07/04/17 14:10 Total Bilirubin < 0.20 mg/dL (0.1-1.2) 07/15/17 12:52 AST 50 units/L (5-40) H 07/15/17 12:52 ALT 14 units/L (7-56) 07/15/17 12:52 Alkaline Phosphatase 152 units/L (35-129) H 07/15/17 12:52 Lactate Dehydrogenase 880 units/L (91-180) H 07/06/17 08:30 Total Creatine Kinase 58 units/L (55-170) 07/05/17 12:40 CK-MB (CK-2) 1.8 ng/mL (0.0-4.0) 07/05/17 12:40 CK-MB (CK-2) Rel Index 3.1 (0-4) 07/05/17 12:40 Troponin T 0.277 ng/mL (0.00-0.029) H* 07/05/17 12:40 C-Reactive Protein 9.90 mg/dL (0.00-1.30) H 07/05/17 Unknown Total Protein 4.7 g/dL (6.3-8.2) L 07/15/17 12:52 Albumin 1.6 g/dL (3.9-5) L 07/15/17 12:52 Albumin/Globulin Ratio 0.5 % 07/15/17 12:52 Triglycerides 83 mg/dL (2-149) 07/04/17 14:10 Cholesterol 83 mg/dL (50-199) 07/04/17 14:10 LDL Cholesterol Direct 22 mg/dL (50-130) L 07/04/17 14:10 HDL Cholesterol 45 mg/dL (40-59) 07/04/17 14:10 Cholesterol/HDL Ratio 1.84 % 07/04/17 14:10 TSH 3.200 mlU/mL (0.270-4.200) 07/02/17 Unknown PTH Intact 159.8 pg/mL (15-65) H 07/15/17 12:52 Urine Color Yellow (Yellow) 07/02/17 17:25 Urine Turbidity Clear (Clear) 07/02/17 17:25 Urine pH 5.0 (5.0-7.0) 07/02/17 17:25 Ur Specific [place] 1.018 (1.003-1.030) 07/02/17 17:25 Urine Protein 100 mg/dl mg/dL (Negative) 07/02/17 17:25 Urine Glucose (UA) >=500 mg/dL (Negative) 07/02/17 17:25 Urine Ketones Neg mg/dL (Negative) 07/02/17 17:25 Urine Blood Sm (Negative) 07/02/17 17:25 Urine Nitrite Neg (Negative) 07/02/17 17:25 Urine Bilirubin Neg (Negative) 07/02/17 17:25 Urine Urobilinogen < 2.0 mg/dL (<2.0) 07/02/17 17:25 Ur Leukocyte Esterase Neg (Negative) 07/02/17 17:25 Urine WBC (Auto) 1.0 /HPF (0.0-6.0) 07/02/17 17:25 Urine RBC (Auto) 2.0 /HPF (0.0-6.0) 07/02/17 17:25 U Epithel Cells (Auto) 1.0 /HPF (0-13.0) 07/02/17 17:25 Fluid Type Pleural 07/06/17 16:53 Fluid Color Yellow 07/06/17 16:53 Fluid Appearance Clear 07/06/17 16:53 Fluid WBC 9 /mm3 07/06/17 16:53 Fluid RBC 6 /mm3 07/06/17 16:53 Fluid Seg Neutrophils 51.2 % 07/06/17 16:53 Fluid Lymphocytes 43.9 % 07/06/17 16:53 Fluid Reactive Lymphs 0 % 07/06/17 16:53 Fluid Monocytes 4.9 % 07/06/17 16:53 Fluid Eosinophils 0 % 07/06/17 16:53 Fluid Basophils 0 % 07/06/17 16:53 Fluid Total Protein < 3.0 (15.0-45.0) L 07/06/17 Unknown Fluid LDH 132 07/06/17 Unknown Fluid Comment 07/06/17 16:53 Salicylates < 0.3 mg/dL (2.8-20.0) L 07/02/17 Unknown Urine Opiates Screen Presumptive negative 07/02/17 17:25 Urine Methadone Screen Presumptive negative 07/02/17 17:25 Acetaminophen < 15.0 ug/mL (10.0-30.0) 07/02/17 Unknown Ur Barbiturates Screen Presumptive negative 07/02/17 17:25 Ur Phencyclidine Scrn Presumptive negative 07/02/17 17:25 Ur Amphetamines Screen Presumptive negative 07/02/17 17:25 U Benzodiazepines Scrn Presumptive negative 07/02/17 17:25 Urine Cocaine Screen Presumptive negative 07/02/17 17:25 U Marijuana (THC) Screen Presumptive negative 07/02/17 17:25 Drugs of Abuse Note Disclamer 07/02/17 17:25 Plasma/Serum Alcohol < 0.01 gm% (0-0.07) 07/02/17 Unknown Heparin-induced Plt Ab Negative (Negative) 07/10/17 10:07 UF Heparin High Dose 0 % Release 07/10/17 10:07 TREVOR UFH Low Dose 0.1 0 % Release 07/10/17 10:07 TREVOR UFH Low Dose 0.5 0 % Release 07/10/17 10:07 Blood Type O POSITIVE 07/15/17 14:49 Antibody Screen Positive 07/15/17 14:49 Prewarmed Antibody Srcn Negative 07/15/17 14:49 Antibody Identification Anti-M 07/15/17 14:49 Crossmatch See Detail 07/15/17 14:49 Crossmatch Prewarmed See Detail 07/15/17 14:49 Hemoglobin is low
[2017-07-16] MEDS: SIMPLE SYRUP FEEDTUBE PRN (18:06)
[2017-07-16] MEDS ORDERED: NACL 0.9% 1000 ML 2,000 ML ONE (21:21)
[2017-07-16 21:33] LABS: Hematocrit 22.1 % (35.5-45.6); Hemoglobin 7.4 gm/dl (11.8-15.2)
[2017-07-16] MEDS: HEPARIN IV PRN (21:45)
[2017-07-17] MEDS: NOVOLOG SUB-Q SCH ×4 (00:10→19:40)
[2017-07-17] MEDS: HEPARIN SUB-Q SCH ×3 (01:02→23:04)
[2017-07-17] MEDS ORDERED: D50W (25GM) Vial IV ONE (05:00)
[2017-07-17] MEDS: LEVEMIR SUB-Q SCH (08:30)
--- NOTE | 2017-07-17 08:50 | Progress Note ---
Assessment and Plan Impression * End-stage renal disease on maintenance hemodialysis * Status post cardiac arrest * Anemia * Respiratory failure * Encephalopathy * Hyperosmolar nonketotic state Recommendations * Continue hemodialysis on Mondays, Wednesdays and Fridays * Epogen with dialysis * packed RBC transfusion as needed * Adjust diet and meds for ESRD state * Avoid nephrotoxins * Overall prognosis appears to be poor Subjective Date of service: 07/17/17 Principal diagnosis: Acute Hypoxemic Resp Failure; S/P Cardiac Arrest; Hyperosmolar Non-ketotic Interval history: Patient remains on the ventilator. Unresponsive. Currently on 28% FiO2. Objective - Vital Signs Vital signs: Vital Signs - 12hr 07/16/17 07/16/17 07/16/17 21:00 21:15 21:30 Temperature 98.6 F Pulse Rate 92 H 80 87 Respiratory 11 L 12 Rate Blood Pressure 110/64 110/62 114/64 O2 Sat by Pulse 99 Oximetry O2 Sat by Pulse 100 Oximetry [ Anterior Bilateral Throughout] 07/16/17 07/16/17 07/16/17 21:45 21:50 22:00 Temperature Pulse Rate 92 H 93 H 92 H Respiratory 12 Rate Blood Pressure 106/63 106/63 111/59 O2 Sat by Pulse 100 99 Oximetry O2 Sat by Pulse Oximetry [ Anterior Bilateral Throughout] 07/16/17 07/16/17 07/16/17 22:15 22:32 22:46 Temperature Pulse Rate 93 H 96 H 99 H Respiratory Rate Blood Pressure 108/59 119/65 127/65 O2 Sat by Pulse Oximetry O2 Sat by Pulse Oximetry [ Anterior Bilateral Throughout] 07/16/17 07/16/17 07/16/17 23:00 23:02 23:16 Temperature Pulse Rate 89 88 87 Respiratory 11 L Rate Blood Pressure 118/55 118/55 115/57 O2 Sat by Pulse 100 Oximetry O2 Sat by Pulse Oximetry [ Anterior Bilateral Throughout] 07/16/17 07/16/17 07/16/17 23:30 23:32 23:46 Temperature Pulse Rate 91 H 88 92 H Respiratory 12 Rate Blood Pressure 115/58 115/66 O2 Sat by Pulse 100 Oximetry O2 Sat by Pulse Oximetry [ Anterior Bilateral Throughout] 07/16/17 07/17/17 07/17/17 23:55 00:00 00:05 Temperature 98.0 F Pulse Rate 93 H 91 H 92 H Respiratory 10 L 12 Rate Blood Pressure 120/63 120/63 120/63 O2 Sat by Pulse 99 100 Oximetry O2 Sat by Pulse Oximetry [ Anterior Bilateral Throughout] 07/17/17 07/17/17 07/17/17 00:15 00:26 01:00 Temperature 98.9 F Pulse Rate 96 H 100 H 99 H Respiratory 12 Rate Blood Pressure 130/70 115/58 O2 Sat by Pulse 100 Oximetry O2 Sat by Pulse Oximetry [ Anterior Bilateral Throughout] 07/17/17 07/17/17 07/17/17 01:01 02:00 02:50 Temperature Pulse Rate 99 H 99 H Respiratory 10 L 10 L 12 Rate Blood Pressure 143/77 127/70 O2 Sat by Pulse 100 100 100 Oximetry O2 Sat by Pulse Oximetry [ Anterior Bilateral Throughout] 07/17/17 07/17/17 07/17/17 03:00 03:54 04:01 Temperature 97.1 F L Pulse Rate 89 89 Respiratory 11 L 12 Rate Blood Pressure 117/66 120/67 O2 Sat by Pulse 100 100 Oximetry O2 Sat by Pulse Oximetry [ Anterior Bilateral Throughout] 07/17/17 07/17/17 07/17/17 04:05 05:01 05:09 Temperature Pulse Rate 89 87 86 Respiratory 12 12 Rate Blood Pressure 128/71 128/71 O2 Sat by Pulse 100 100 100 Oximetry O2 Sat by Pulse Oximetry [ Anterior Bilateral Throughout] 07/17/17 07/17/17 07/17/17 06:00 07:01 08:00 Temperature 98.5 F Pulse Rate 88 94 H Respiratory 12 10 L Rate Blood Pressure 136/67 138/63 O2 Sat by Pulse 100 100 Oximetry O2 Sat by Pulse Oximetry [ Anterior Bilateral Throughout] 07/17/17 08:01 Temperature Pulse Rate 90 Respiratory 12 Rate Blood Pressure 139/71 O2 Sat by Pulse 100 Oximetry O2 Sat by Pulse Oximetry [ Anterior Bilateral Throughout] - General Appearance General appearance: chronically ill, intubated, frail EENT: PERRL, mucous membranes moist Neck: no JVD, no thyromegaly, no carotid bruit, supple, other (right IJ PermCath in place) Respiratory: Present: Clear to Ascultation Cardiology: regular, normal heart rate, S1S2, no murmurs Gastrointestinal: normal, normoactive bowel sounds Integumentary: no rash, other (1+ edema in his upper extremities) - Lab 07/16/17 21:23 07/17/17 05:17 Most recent lab results Calcium 7.1 mg/dL (8.4-10.2) L 07/15/17 12:52 Phosphorus 1.90 mg/dL (2.5-4.5) L 07/15/17 12:52 Magnesium 1.80 mg/dL (1.7-2.3) 07/04/17 14:10
[2017-07-17] MEDS: THERAGRAN-M Tab PO SCH (09:43)
[2017-07-17] MEDS: NORVASC PO SCH (09:43)
[2017-07-17] MEDS: PEPCID PO SCH (09:43)
[2017-07-17] MEDS: COREG PO SCH ×2 (09:44→23:03)
[2017-07-17] MEDS: FOLVITE PO SCH (09:44)
[2017-07-17] MEDS: ROCALTROL PO SCH (09:45)
[2017-07-17] MEDS: ASPIRIN PO SCH (09:45)
--- NOTE | 2017-07-17 10:13 | Progress Note ---
Assessment and Plan Assessment: S/p cardiopulmonary arrest - PEA in ED; intubated; currently in SR on tele with no arrhythmias noted on tele since ICU admission NSTEMI type II - flat; repeat EKG with no acute ischemic changes. AMS - ? anoxic brain injury; head CT with NAF DKA Seizure d/o HTN DM / Hyperosmolar non ketotic state Lactic acidosis / leukocytosis / ? sepsis Hyponatremia - improved Anemia Thrombocytopenia - improving Plan: Cont present cardiac regimen. Cont supportive management. For possible trach/PEG. Plan for ischemic evaluation once medically stabilized. The patient has been seen in conjunction with Dr. Bharath Xiong who agrees with the assessment and plan of care. Subjective Date of service: 07/17/17 Principal diagnosis: Acute Hypoxemic Resp Failure; S/P Cardiac Arrest; Hyperosmolar Non-ketotic Interval history: pt remains intubated, eyes open, no purposeful responses noted. Objective Last Vital Signs Temp 98.5 F 07/17/17 08:00 Pulse 100 H 07/17/17 09:44 Resp 19 07/17/17 08:43 BP 143/77 07/17/17 09:44 Pulse Ox 100 07/17/17 08:43 - Physical Examination General: Other (intubated) HEENT: Positive: PERRL Neck: Positive: neck supple Cardiac: Positive: Reg Rate and Rhythm, S1/S2 Lungs: Positive: Decreased Breath Sounds, Ventilated Respirations Neuro: Positive: Other (intubated) Abdomen: Positive: Soft, Active Bowel Sounds Skin: Positive: Clear. Negative: Rash, Wound Musculoskeletal: No Fluid Collection, No Pain, Normal Range of Motion Extremities: Absent: edema - Labs and Meds CBC 07/16/17 Range/Units 21:23 Hgb 7.4 L (11.8-15.2) gm/dl Hct 22.1 L (35.5-45.6) % Comprehensive Metabolic Panel 07/17/17 Range/Units 05:17 Glucose 103 H (75-100) mg/dL - Imaging and Cardiology EKG: report reviewed, image reviewed Echo: report reviewed (06/27/2017 showed EF 50-55%, mild LVH, impaired relaxation , RA mildly dilated, mild MR, mild pulm HTN with RVSP 45mmHg, moderate pleural fluid) - Telemetry EKG Rhythm: Sinus Rhythm - EKG Sinus rhythms and dysrhythmias: sinus rhythm AV and intraventricular conduction: right bundle branch block - Allied health notes Allied health notes reviewed: nursing
--- NOTE | 2017-07-17 11:13 | Progress Note ---
Assessment and Plan Scheduled for OR on for PEG trach, consent in chart. Please have NPO past midnight on Sunday. Please order a INR recently, jana one week. Subjective Date of service: 07/17/17 Objective Vital Signs - 12hr 07/16/17 07/16/17 07/16/17 23:16 23:30 23:32 Temperature Pulse Rate 87 91 H 88 Pulse Rate [ From Monitor] Respiratory 12 Rate Blood Pressure 115/57 115/58 O2 Sat by Pulse 100 Oximetry 07/16/17 07/16/17 07/17/17 23:46 23:55 00:00 Temperature 98.0 F Pulse Rate 92 H 93 H 91 H Pulse Rate [ From Monitor] Respiratory 10 L Rate Blood Pressure 115/66 120/63 120/63 O2 Sat by Pulse 99 Oximetry 07/17/17 07/17/17 07/17/17 00:05 00:15 00:26 Temperature 98.9 F Pulse Rate 92 H 96 H 100 H Pulse Rate [ From Monitor] Respiratory 12 12 Rate Blood Pressure 120/63 130/70 115/58 O2 Sat by Pulse 100 100 Oximetry 07/17/17 07/17/17 07/17/17 01:00 01:01 02:00 Temperature Pulse Rate 99 H 99 H 99 H Pulse Rate [ From Monitor] Respiratory 10 L 10 L Rate Blood Pressure 143/77 127/70 O2 Sat by Pulse 100 100 Oximetry 07/17/17 07/17/17 07/17/17 02:50 03:00 03:54 Temperature 97.1 F L Pulse Rate 89 Pulse Rate [ From Monitor] Respiratory 12 11 L Rate Blood Pressure 117/66 O2 Sat by Pulse 100 100 Oximetry 07/17/17 07/17/17 07/17/17 04:01 04:05 05:01 Temperature Pulse Rate 89 89 87 Pulse Rate [ From Monitor] Respiratory 12 12 12 Rate Blood Pressure 120/67 128/71 O2 Sat by Pulse 100 100 100 Oximetry 07/17/17 07/17/17 07/17/17 05:09 06:00 07:01 Temperature Pulse Rate 86 88 94 H Pulse Rate [ From Monitor] Respiratory 12 10 L Rate Blood Pressure 128/71 136/67 138/63 O2 Sat by Pulse 100 100 100 Oximetry 07/17/17 07/17/17 07/17/17 08:00 08:01 08:43 Temperature 98.5 F Pulse Rate 90 98 H Pulse Rate [ 98 H From Monitor] Respiratory 20 12 19 Rate Blood Pressure 139/71 143/80 O2 Sat by Pulse 100 100 100 Oximetry 07/17/17 07/17/17 07/17/17 09:01 09:43 09:44 Temperature Pulse Rate 102 H 100 H 100 H Pulse Rate [ From Monitor] Respiratory 12 Rate Blood Pressure 143/77 143/77 143/77 O2 Sat by Pulse 99 Oximetry 07/17/17 07/17/17 07/17/17 10:00 10:01 11:00 Temperature Pulse Rate 93 H 101 H 93 H Pulse Rate [ From Monitor] Respiratory 13 11 L Rate Blood Pressure 134/77 124/70 O2 Sat by Pulse 98 98 Oximetry - General physical appearance well developed, no distress - Neck trachea midline - Respiratory normal expansion, clear to auscultation - Abdomen soft, not tender, bowel sounds normal, not distended, not masses, not guarding, not rigid, not surgical scars - Labs 07/16/17 21:23 07/17/17 05:17 Diabetes panel 07/17/17 Range/Units 05:17 Glucose 103 H (75-100) mg/dL Pituitary panel 07/17/17 Range/Units 05:17 Glucose 103 H (75-100) mg/dL Adrenal panel 07/17/17 Range/Units 05:17 Glucose 103 H (75-100) mg/dL
--- NOTE | 2017-07-17 16:04 | Progress Note ---
Assessment and Plan Acute Hypoxemic Respiratory Failure on MVS Seizure Disorder s/p Cardiac Arrest ESRD on Dialysis Sepsis Syndrome Hyperosmolar non ketotic state Anemia Leucocytosis(improving) Acute Encephalopathy - lung protective strategies -VAP bundle addressed -Continue enteric feeding -Continue SBT and SAT trials - Continue aspiration precautions - Continue to wean FiO2 for sats > 94% - bronchodilators and pulmonary toilet - Continue empiric AB's per ID - continue glycemic control with insulin infusion (target BG <180mg/dl) - GI & VTE prophylaxis -Patient is Full code in the event of cardiopulmonary arrest Prognosis----Guarded -Plan for tracheostomy and PEG early this week - Continue other care per attending / other consultants Subjective Date of service: 07/17/17 Principal diagnosis: Acute Hypoxemic Resp Failure; S/P Cardiac Arrest; Hyperosmolar Non-ketotic Interval history: Patient is seen today for: Acute Hypoxemic Resp Failure; S/P Cardiac Arrest; Hyperosmolar Non-ketotic Seen and examined at bedside; 24hour events reviewed; nursing and respiratory care staff consulted; no adverse overnight events reported to me; remains on MVS ; AMS is persistent though he is tolerating weaning trials well; No emesis or overt aspiration reported Objective - Exam Narrative Exam: Patient is intubated and on mechanical ventilation. Chronically ill looking, No dys-synchrony, normal airway pressures Vital signs as documented. Head exam is unremarkable, No scleral icterus . Chest wall HD access Neck is without jugular venous distension, or carotid bruits. Lungs are clear to auscultation. Cardiac exam reveals regular rate and Rhythm. First and second heart sounds normal. No murmurs, rubs or gallops. Abdominal exam reveals normal bowel sounds, no masses, no organomegaly and no aortic enlargement. 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 Vital Signs - 12hr 07/17/17 07/17/17 07/17/17 04:05 05:01 05:09 Temperature Pulse Rate 89 87 86 Pulse Rate [ From Monitor] Respiratory 12 12 Rate Blood Pressure 128/71 128/71 O2 Sat by Pulse 100 100 100 Oximetry 07/17/17 07/17/17 07/17/17 06:00 07:01 08:00 Temperature 98.5 F Pulse Rate 88 94 H Pulse Rate [ 98 H From Monitor] Respiratory 12 10 L 20 Rate Blood Pressure 136/67 138/63 O2 Sat by Pulse 100 100 100 Oximetry 07/17/17 07/17/17 07/17/17 08:01 08:43 09:01 Temperature Pulse Rate 90 98 H 102 H Pulse Rate [ From Monitor] Respiratory 12 19 12 Rate Blood Pressure 139/71 143/80 143/77 O2 Sat by Pulse 100 100 99 Oximetry 07/17/17 07/17/17 07/17/17 09:43 09:44 10:00 Temperature Pulse Rate 100 H 100 H 93 H Pulse Rate [ From Monitor] Respiratory Rate Blood Pressure 143/77 143/77 O2 Sat by Pulse Oximetry 07/17/17 07/17/17 07/17/17 10:01 11:00 12:00 Temperature 97.7 F Pulse Rate 101 H 93 H Pulse Rate [ 78 From Monitor] Respiratory 13 11 L 14 Rate Blood Pressure 134/77 124/70 O2 Sat by Pulse 98 98 98 Oximetry 07/17/17 07/17/17 07/17/17 12:01 12:08 13:00 Temperature Pulse Rate 87 89 86 Pulse Rate [ From Monitor] Respiratory 12 11 L 12 Rate Blood Pressure 103/57 103/57 108/66 O2 Sat by Pulse 99 100 100 Oximetry 07/17/17 14:00 Temperature Pulse Rate 78 Pulse Rate [ From Monitor] Respiratory 12 Rate Blood Pressure 108/55 O2 Sat by Pulse 100 Oximetry Constitutional: no acute distress, other (encephalopathic) Eyes: non-icteric ENT: oropharynx moist, other (ETT at 25cm TIKI) Neck: supple, no lymphadenopathy, JVD, other (no thyromegally) Effort: mildly labored Ascultation: Bilateral: diminished breath sounds (bases), rales Percussion: Right: dull (base), Bilateral: not dull Cardiovascular: regular rate and rhythm, other (no rubs / murmurs) Gastrointestinal: normoactive bowel sounds, soft, non-tender, non-distended, other (no HSM) Integumentary: normal Extremities: no cyanosis, no edema, pulses normal, no ischemia or petechiae Neurologic: pupils equal and round, unable to assess, other (no spontaneous limb movements) Psychiatric: other (unable to assess) CBC and BMP: 07/18/17 03:54 07/18/17 03:54 ABG, PT/INR, D-dimer: ABG POC ABG pH 7.511 (7.35-7.45) H 07/16/17 12:46 POC ABG pCO2 35.2 (35-45) 07/16/17 12:46 POC ABG pO2 155 (80-105) H 07/16/17 12:46 POC ABG HCO3 28.2 07/16/17 12:46 POC ABG Total CO2 29 07/16/17 12:46 POC ABG O2 Sat 100 07/16/17 12:46 PT/INR, D-dimer PT 12.9 Sec. (12.2-14.9) 07/06/17 08:30 INR 0.93 (0.87-1.13) 07/06/17 08:30 Abnormal lab findings: Abnormal Labs 07/02/17 07/02/17 07/02/17 15:03 15:12 17:49 WBC 13.5 H RBC 3.47 L Hgb 9.9 L Hct 33.1 L MCV 96 H MCHC 30 L RDW 15.4 H Plt Count 130 L Lymph % (Auto) [place] % (Auto) Lymph # [place] # Seg Neutrophils % Seg Neuts % (Manual) 95.0 H Lymphocytes % (Manual) 3.0 L Seg Neutrophils # Seg Neutrophils # Man 12.8 H Lymphocytes # (Manual) 0.4 L POC ABG pH POC ABG pCO2 POC ABG pO2 Sodium Potassium Chloride Carbon Dioxide BUN Creatinine Glucose POC Glucose > 500 H Lactic Acid 7.80 H* Calcium Ionized Calcium Phosphorus AST Alkaline Phosphatase Lactate Dehydrogenase CK-MB (CK-2) Troponin T C-Reactive Protein Total Protein Albumin LDL Cholesterol Direct PTH Intact Fluid Total Protein Salicylates Crossmatch Prewarmed 07/02/17 07/02/17 07/02/17 20:29 21:31 23:38 WBC RBC Hgb Hct MCV MCHC RDW Plt Count Lymph % (Auto) [place] % (Auto) Lymph # [place] # Seg Neutrophils % Seg Neuts % (Manual) Lymphocytes % (Manual) Seg Neutrophils # Seg Neutrophils # Man Lymphocytes # (Manual) POC ABG pH POC ABG pCO2 POC ABG pO2 Sodium 129 L 132 L Potassium Chloride 87.2 L 93.7 L Carbon Dioxide 18 L 15 L BUN 51 H 47 H Creatinine 4.3 H 4.1 H Glucose 950 H* 825 H* POC Glucose Lactic Acid 5.70 H* Calcium 7.1 L 6.8 L Ionized Calcium Phosphorus AST Alkaline Phosphatase Lactate Dehydrogenase CK-MB (CK-2) Troponin T C-Reactive Protein Total Protein Albumin LDL Cholesterol Direct PTH Intact Fluid Total Protein Salicylates Crossmatch Prewarmed 07/02/17 07/02/17 07/02/17 23:38 23:44 Unknown WBC RBC Hgb Hct MCV MCHC RDW Plt Count Lymph % (Auto) [place] % (Auto) Lymph # [place] # Seg Neutrophils % Seg Neuts % (Manual) Lymphocytes % (Manual) Seg Neutrophils # Seg Neutrophils # Man Lymphocytes # (Manual) POC ABG pH POC ABG pCO2 POC ABG pO2 Sodium 132 L 125 L D Potassium Chloride 94.6 L 85.6 L Carbon Dioxide 17 L 19 L D BUN 51 H 50 H Creatinine 4.1 H 4.4 H D Glucose 772 H* 1113 H* POC Glucose > 500 H Lactic Acid Calcium 6.7 L 7.2 L Ionized Calcium Phosphorus AST Alkaline Phosphatase 139 H Lactate Dehydrogenase CK-MB (CK-2) Troponin T C-Reactive Protein Total Protein 6.1 L Albumin 3.3 L LDL Cholesterol Direct PTH Intact Fluid Total Protein Salicylates Crossmatch Prewarmed 07/02/17 07/02/17 07/03/17 Unknown Unknown 01:00 WBC RBC Hgb Hct MCV MCHC RDW Plt Count Lymph % (Auto) [place] % (Auto) Lymph # [place] # Seg Neutrophils % Seg Neuts % (Manual) Lymphocytes % (Manual) Seg Neutrophils # Seg Neutrophils # Man Lymphocytes # (Manual) POC ABG pH POC ABG pCO2 POC ABG pO2 Sodium 134 L Potassium Chloride 96.4 L Carbon Dioxide 19 L BUN 50 H Creatinine 4.0 H Glucose 677 H* POC Glucose Lactic Acid 6.30 H* Calcium 6.6 L Ionized Calcium Phosphorus AST Alkaline Phosphatase Lactate Dehydrogenase CK-MB (CK-2) Troponin T C-Reactive Protein Total Protein Albumin LDL Cholesterol Direct PTH Intact Fluid Total Protein Salicylates < 0.3 L Crossmatch Prewarmed 07/03/17 07/03/17 07/03/17 01:04 02:15 02:15 WBC RBC Hgb Hct MCV MCHC RDW Plt Count Lymph % (Auto) [place] % (Auto) Lymph # [place] # Seg Neutrophils % Seg Neuts % (Manual) Lymphocytes % (Manual) Seg Neutrophils # Seg Neutrophils # Man Lymphocytes # (Manual) POC ABG pH POC ABG pCO2 POC ABG pO2 Sodium 134 L Potassium Chloride 97.6 L Carbon Dioxide 19 L BUN 50 H Creatinine 4.2 H Glucose 592 H* POC Glucose > 500 H Lactic Acid 4.30 H* Calcium 6.6 L Ionized Calcium Phosphorus AST Alkaline Phosphatase Lactate Dehydrogenase CK-MB (CK-2) Troponin T C-Reactive Protein Total Protein Albumin LDL Cholesterol Direct PTH Intact Fluid Total Protein Salicylates Crossmatch Prewarmed 07/03/17 07/03/17 07/03/17 02:21 03:25 04:10 WBC RBC Hgb Hct MCV MCHC RDW Plt Count Lymph % (Auto) [place] % (Auto) Lymph # [place] # Seg Neutrophils % Seg Neuts % (Manual) Lymphocytes % (Manual) Seg Neutrophils # Seg Neutrophils # Man Lymphocytes # (Manual) POC ABG pH POC ABG pCO2 POC ABG pO2 Sodium Potassium Chloride Carbon Dioxide 19 L BUN 50 H Creatinine 4.0 H Glucose 416 H POC Glucose 482 H > 500 H Lactic Acid Calcium 6.8 L Ionized Calcium Phosphorus AST Alkaline Phosphatase Lactate Dehydrogenase CK-MB (CK-2) Troponin T C-Reactive Protein Total Protein Albumin LDL Cholesterol Direct PTH Intact Fluid Total Protein Salicylates Crossmatch Prewarmed 07/03/17 07/03/17 07/03/17 04:30 04:36 05:33 WBC RBC Hgb Hct MCV MCHC RDW Plt Count Lymph % (Auto) [place] % (Auto) Lymph # [place] # Seg Neutrophils % Seg Neuts % (Manual) Lymphocytes % (Manual) Seg Neutrophils # Seg Neutrophils # Man Lymphocytes # (Manual) POC ABG pH 7.311 L POC ABG pCO2 33.5 L POC ABG pO2 73 L Sodium Potassium Chloride Carbon Dioxide BUN Creatinine Glucose POC Glucose 389 H 326 H Lactic Acid Calcium Ionized Calcium Phosphorus AST Alkaline Phosphatase Lactate Dehydrogenase CK-MB (CK-2) Troponin T C-Reactive Protein Total Protein Albumin LDL Cholesterol Direct PTH Intact Fluid Total Protein Salicylates Crossmatch Prewarmed 07/03/17 07/03/17 07/03/17 06:06 07:38 09:58 WBC RBC Hgb Hct MCV MCHC RDW Plt Count Lymph % (Auto) [place] % (Auto) Lymph # [place] # Seg Neutrophils % Seg Neuts % (Manual) Lymphocytes % (Manual) Seg Neutrophils # Seg Neutrophils # Man Lymphocytes # (Manual) POC ABG pH POC ABG pCO2 POC ABG pO2 Sodium Potassium Chloride Carbon Dioxide BUN Creatinine Glucose POC Glucose 247 H 118 H 52 L Lactic Acid Calcium Ionized Calcium Phosphorus AST Alkaline Phosphatase Lactate Dehydrogenase CK-MB (CK-2) Troponin T C-Reactive Protein Total Protein Albumin LDL Cholesterol Direct PTH Intact Fluid Total Protein Salicylates Crossmatch Prewarmed 07/03/17 07/03/17 07/03/17 11:00 13:16 15:02 WBC RBC Hgb Hct MCV MCHC RDW Plt Count Lymph % (Auto) [place] % (Auto) Lymph # [place] # Seg Neutrophils % Seg Neuts % (Manual) Lymphocytes % (Manual) Seg Neutrophils # Seg Neutrophils # Man Lymphocytes # (Manual) POC ABG pH POC ABG pCO2 POC ABG pO2 Sodium Potassium Chloride Carbon Dioxide BUN Creatinine Glucose POC Glucose 64 L 112 H 158 H Lactic Acid Calcium Ionized Calcium Phosphorus AST Alkaline Phosphatase Lactate Dehydrogenase CK-MB (CK-2) Troponin T C-Reactive Protein Total Protein Albumin LDL Cholesterol Direct PTH Intact Fluid Total Protein Salicylates Crossmatch Prewarmed 07/03/17 07/03/17 07/03/17 18:17 Unknown Unknown WBC RBC Hgb Hct MCV MCHC RDW Plt Count Lymph % (Auto) [place] % (Auto) Lymph # [place] # Seg Neutrophils % Seg Neuts % (Manual) Lymphocytes % (Manual) Seg Neutrophils # Seg Neutrophils # Man Lymphocytes # (Manual) POC ABG pH POC ABG pCO2 POC ABG pO2 Sodium Potassium Chloride Carbon Dioxide BUN Creatinine Glucose POC Glucose 131 H Lactic Acid 2.40 H* Calcium Ionized Calcium Phosphorus AST Alkaline Phosphatase Lactate Dehydrogenase CK-MB (CK-2) Troponin T C-Reactive Protein 1.90 H Total Protein Albumin LDL Cholesterol Direct PTH Intact Fluid Total Protein Salicylates Crossmatch Prewarmed 07/03/17 07/04/17 07/04/17 Unknown 00:13 02:04 WBC RBC Hgb Hct MCV MCHC RDW Plt Count Lymph % (Auto) [place] % (Auto) Lymph # [place] # Seg Neutrophils % Seg Neuts % (Manual) Lymphocytes % (Manual) Seg Neutrophils # Seg Neutrophils # Man Lymphocytes # (Manual) POC ABG pH POC ABG pCO2 POC ABG pO2 Sodium Potassium Chloride Carbon Dioxide BUN 52 H Creatinine 4.3 H Glucose POC Glucose 69 L 111 H Lactic Acid Calcium 7.2 L Ionized Calcium Phosphorus AST Alkaline Phosphatase Lactate Dehydrogenase CK-MB (CK-2) Troponin T C-Reactive Protein Total Protein Albumin LDL Cholesterol Direct PTH Intact Fluid Total Protein Salicylates Crossmatch Prewarmed 07/04/17 07/04/17 07/04/17 04:38 08:00 08:00 WBC 28.3 H RBC 3.55 L Hgb 10.3 L Hct 31.2 L MCV MCHC RDW 15.3 H Plt Count 101 L Lymph % (Auto) [place] % (Auto) Lymph # [place] # Seg Neutrophils % Seg Neuts % (Manual) Lymphocytes % (Manual) Seg Neutrophils # Seg Neutrophils # Man Lymphocytes # (Manual) POC ABG pH POC ABG pCO2 27.6 L POC ABG pO2 Sodium Potassium Chloride Carbon Dioxide 20 L BUN 62 H Creatinine 4.7 H Glucose POC Glucose Lactic Acid Calcium 7.0 L Ionized Calcium Phosphorus AST Alkaline Phosphatase Lactate Dehydrogenase CK-MB (CK-2) Troponin T C-Reactive Protein Total Protein Albumin LDL Cholesterol Direct PTH Intact Fluid Total Protein Salicylates Crossmatch Prewarmed 07/04/17 07/04/17 07/04/17 14:10 14:10 14:33 WBC RBC Hgb Hct MCV MCHC RDW Plt Count Lymph % (Auto) [place] % (Auto) Lymph # [place] # Seg Neutrophils % Seg Neuts % (Manual) Lymphocytes % (Manual) Seg Neutrophils # Seg Neutrophils # Man Lymphocytes # (Manual) POC ABG pH 7.474 H POC ABG pCO2 29.4 L POC ABG pO2 Sodium Potassium Chloride Carbon Dioxide BUN Creatinine Glucose POC Glucose Lactic Acid Calcium Ionized Calcium 4.6 L Phosphorus AST Alkaline Phosphatase Lactate Dehydrogenase CK-MB (CK-2) 4.3 H Troponin T 0.282 H* C-Reactive Protein Total Protein Albumin LDL Cholesterol Direct 22 L PTH Intact Fluid Total Protein Salicylates Crossmatch Prewarmed 07/04/17 07/04/17 07/04/17 17:26 20:40 23:34 WBC RBC Hgb Hct MCV MCHC RDW Plt Count Lymph % (Auto) [place] % (Auto) Lymph # [place] # Seg Neutrophils % Seg Neuts % (Manual) Lymphocytes % (Manual) Seg Neutrophils # Seg Neutrophils # Man Lymphocytes # (Manual) POC ABG pH POC ABG pCO2 POC ABG pO2 Sodium Potassium Chloride Carbon Dioxide BUN Creatinine Glucose POC Glucose 201 H 188 H Lactic Acid Calcium Ionized Calcium Phosphorus AST Alkaline Phosphatase Lactate Dehydrogenase CK-MB (CK-2) Troponin T 0.276 H* C-Reactive Protein Total Protein Albumin LDL Cholesterol Direct PTH Intact Fluid Total Protein Salicylates Crossmatch Prewarmed 07/05/17 07/05/17 07/05/17 05:42 07:50 11:52 WBC RBC Hgb Hct MCV MCHC RDW Plt Count Lymph % (Auto) [place] % (Auto) Lymph # [place] # Seg Neutrophils % Seg Neuts % (Manual) Lymphocytes % (Manual) Seg Neutrophils # Seg Neutrophils # Man Lymphocytes # (Manual) POC ABG pH POC ABG pCO2 POC ABG pO2 117 H Sodium Potassium Chloride Carbon Dioxide BUN Creatinine Glucose POC Glucose 126 H 110 H Lactic Acid Calcium Ionized Calcium Phosphorus AST Alkaline Phosphatase Lactate Dehydrogenase CK-MB (CK-2) Troponin T C-Reactive Protein Total Protein Albumin LDL Cholesterol Direct PTH Intact Fluid Total Protein Salicylates Crossmatch Prewarmed 07/05/17 07/05/17 07/05/17 12:40 17:51 18:12 WBC RBC Hgb Hct MCV MCHC RDW Plt Count Lymph % (Auto) [place] % (Auto) Lymph # [place] # Seg Neutrophils % Seg Neuts % (Manual) Lymphocytes % (Manual) Seg Neutrophils # Seg Neutrophils # Man Lymphocytes # (Manual) POC ABG pH POC ABG pCO2 POC ABG pO2 Sodium Potassium Chloride Carbon Dioxide BUN Creatinine Glucose POC Glucose 57 L 69 L Lactic Acid Calcium Ionized Calcium Phosphorus AST Alkaline Phosphatase Lactate Dehydrogenase CK-MB (CK-2) Troponin T 0.277 H* C-Reactive Protein Total Protein Albumin LDL Cholesterol Direct PTH Intact Fluid Total Protein Salicylates Crossmatch Prewarmed 07/05/17 07/05/17 07/05/17 Unknown Unknown Unknown WBC 22.2 H RBC 3.24 L Hgb 9.7 L Hct 28.6 L MCV MCHC RDW Plt Count 89 L Lymph % (Auto) [place] % (Auto) Lymph # [place] # Seg Neutrophils % Seg Neuts % (Manual) 89.0 H Lymphocytes % (Manual) 7.0 L Seg Neutrophils # Seg Neutrophils # Man 19.8 H Lymphocytes # (Manual) POC ABG pH POC ABG pCO2 POC ABG pO2 Sodium Potassium 3.5 L Chloride Carbon Dioxide BUN 37 H Creatinine 3.1 H Glucose 120 H POC Glucose Lactic Acid 2.30 H* Calcium 7.7 L Ionized Calcium Phosphorus AST Alkaline Phosphatase Lactate Dehydrogenase CK-MB (CK-2) Troponin T C-Reactive Protein Total Protein Albumin LDL Cholesterol Direct PTH Intact Fluid Total Protein Salicylates Crossmatch Prewarmed 07/05/17 07/06/17 07/06/17 Unknown 03:25 03:25 WBC 17.7 H RBC 3.14 L Hgb 9.3 L Hct 27.8 L MCV MCHC RDW 15.7 H Plt Count 82 L Lymph % (Auto) 2.5 L [place] % (Auto) Lymph # 0.4 L [place] # 1.1 H Seg Neutrophils % 90.0 H Seg Neuts % (Manual) Lymphocytes % (Manual) Seg Neutrophils # 15.9 H Seg Neutrophils # Man Lymphocytes # (Manual) POC ABG pH POC ABG pCO2 POC ABG pO2 Sodium Potassium 3.3 L Chloride Carbon Dioxide BUN 44 H Creatinine 3.6 H Glucose 132 H POC Glucose Lactic Acid Calcium 7.4 L Ionized Calcium Phosphorus AST Alkaline Phosphatase Lactate Dehydrogenase CK-MB (CK-2) Troponin T C-Reactive Protein 9.90 H Total Protein Albumin LDL Cholesterol Direct PTH Intact Fluid Total Protein Salicylates Crossmatch Prewarmed 07/06/17 07/06/17 07/06/17 04:19 05:24 08:30 WBC RBC Hgb Hct MCV MCHC RDW Plt Count Lymph % (Auto) [place] % (Auto) Lymph # [place] # Seg Neutrophils % Seg Neuts % (Manual) Lymphocytes % (Manual) Seg Neutrophils # Seg Neutrophils # Man Lymphocytes # (Manual) POC ABG pH POC ABG pCO2 34.3 L POC ABG pO2 Sodium Potassium Chloride Carbon Dioxide BUN Creatinine Glucose POC Glucose 174 H Lactic Acid Calcium Ionized Calcium Phosphorus AST Alkaline Phosphatase Lactate Dehydrogenase 880 H CK-MB (CK-2) Troponin T C-Reactive Protein Total Protein 4.9 L Albumin LDL Cholesterol Direct PTH Intact Fluid Total Protein Salicylates Crossmatch Prewarmed 07/06/17 07/06/17 07/06/17 11:13 17:14 23:38 WBC RBC Hgb Hct MCV MCHC RDW Plt Count Lymph % (Auto) [place] % (Auto) Lymph # [place] # Seg Neutrophils % Seg Neuts % (Manual) Lymphocytes % (Manual) Seg Neutrophils # Seg Neutrophils # Man Lymphocytes # (Manual) POC ABG pH POC ABG pCO2 POC ABG pO2 Sodium Potassium Chloride Carbon Dioxide BUN Creatinine Glucose POC Glucose 216 H 211 H 122 H Lactic Acid Calcium Ionized Calcium Phosphorus AST Alkaline Phosphatase Lactate Dehydrogenase CK-MB (CK-2) Troponin T C-Reactive Protein Total Protein Albumin LDL Cholesterol Direct PTH Intact Fluid Total Protein Salicylates Crossmatch Prewarmed 07/06/17 07/07/17 07/07/17 Unknown 04:38 05:00 WBC 16.1 H RBC 3.00 L Hgb 8.9 L Hct 26.6 L MCV MCHC RDW 15.6 H Plt Count 106 L Lymph % (Auto) 4.1 L [place] % (Auto) 8.0 H Lymph # 0.7 L [place] # 1.3 H Seg Neutrophils % 86.6 H Seg Neuts % (Manual) Lymphocytes % (Manual) Seg Neutrophils # 13.9 H Seg Neutrophils # Man Lymphocytes # (Manual) POC ABG pH 7.455 H POC ABG pCO2 POC ABG pO2 134 H Sodium Potassium Chloride Carbon Dioxide BUN Creatinine Glucose POC Glucose Lactic Acid Calcium Ionized Calcium Phosphorus AST Alkaline Phosphatase Lactate Dehydrogenase CK-MB (CK-2) Troponin T C-Reactive Protein Total Protein Albumin LDL Cholesterol Direct PTH Intact Fluid Total Protein < 3.0 L Salicylates Crossmatch Prewarmed 07/07/17 07/07/17 07/07/17 05:00 05:17 11:33 WBC RBC Hgb Hct MCV MCHC RDW Plt Count Lymph % (Auto) [place] % (Auto) Lymph # [place] # Seg Neutrophils % Seg Neuts % (Manual) Lymphocytes % (Manual) Seg Neutrophils # Seg Neutrophils # Man Lymphocytes # (Manual) POC ABG pH POC ABG pCO2 POC ABG pO2 Sodium Potassium Chloride Carbon Dioxide BUN 30 H Creatinine 2.8 H Glucose 188 H POC Glucose 189 H 275 H Lactic Acid Calcium 7.9 L Ionized Calcium Phosphorus AST Alkaline Phosphatase Lactate Dehydrogenase CK-MB (CK-2) Troponin T C-Reactive Protein Total Protein Albumin LDL Cholesterol Direct PTH Intact Fluid Total Protein Salicylates Crossmatch Prewarmed 07/07/17 07/07/17 07/07/17 16:04 17:08 23:45 WBC RBC Hgb Hct MCV MCHC RDW Plt Count Lymph % (Auto) [place] % (Auto) Lymph # [place] # Seg Neutrophils % Seg Neuts % (Manual) Lymphocytes % (Manual) Seg Neutrophils # Seg Neutrophils # Man Lymphocytes # (Manual) POC ABG pH POC ABG pCO2 POC ABG pO2 126 H Sodium Potassium Chloride Carbon Dioxide BUN Creatinine Glucose POC Glucose 241 H 118 H Lactic Acid Calcium Ionized Calcium Phosphorus AST Alkaline Phosphatase Lactate Dehydrogenase CK-MB (CK-2) Troponin T C-Reactive Protein Total Protein Albumin LDL Cholesterol Direct PTH Intact Fluid Total Protein Salicylates Crossmatch Prewarmed 07/08/17 07/08/17 07/08/17 05:30 05:54 06:12 WBC 17.0 H RBC 3.27 L Hgb 9.5 L Hct 29.1 L MCV MCHC RDW 15.6 H Plt Count 133 L Lymph % (Auto) 4.6 L [place] % (Auto) 9.2 H Lymph # 0.8 L [place] # 1.6 H Seg Neutrophils % 83.9 H Seg Neuts % (Manual) Lymphocytes % (Manual) Seg Neutrophils # 14.3 H Seg Neutrophils # Man Lymphocytes # (Manual) POC ABG pH 7.477 H POC ABG pCO2 POC ABG pO2 118 H Sodium Potassium Chloride Carbon Dioxide BUN Creatinine Glucose POC Glucose 199 H Lactic Acid Calcium Ionized Calcium Phosphorus AST Alkaline Phosphatase Lactate Dehydrogenase CK-MB (CK-2) Troponin T C-Reactive Protein Total Protein Albumin LDL Cholesterol Direct PTH Intact Fluid Total Protein Salicylates Crossmatch Prewarmed 07/08/17 07/08/17 07/08/17 06:12 11:37 17:21 WBC RBC Hgb Hct MCV MCHC RDW Plt Count Lymph % (Auto) [place] % (Auto) Lymph # [place] # Seg Neutrophils % Seg Neuts % (Manual) Lymphocytes % (Manual) Seg Neutrophils # Seg Neutrophils # Man Lymphocytes # (Manual) POC ABG pH POC ABG pCO2 POC ABG pO2 Sodium Potassium Chloride Carbon Dioxide BUN 44 H Creatinine 3.4 H Glucose 190 H POC Glucose 236 H 186 H Lactic Acid Calcium 7.8 L Ionized Calcium Phosphorus AST Alkaline Phosphatase Lactate Dehydrogenase CK-MB (CK-2) Troponin T C-Reactive Protein Total Protein Albumin LDL Cholesterol Direct PTH Intact Fluid Total Protein Salicylates Crossmatch Prewarmed 07/08/17 07/09/17 07/09/17 23:09 04:27 05:02 WBC 17.8 H RBC 2.88 L Hgb 8.5 L Hct 25.6 L MCV MCHC RDW 15.5 H Plt Count Lymph % (Auto) 4.6 L [place] % (Auto) 10.2 H Lymph # 0.8 L [place] # 1.8 H Seg Neutrophils % 83.4 H Seg Neuts % (Manual) Lymphocytes % (Manual) Seg Neutrophils # 14.8 H Seg Neutrophils # Man Lymphocytes # (Manual) POC ABG pH POC ABG pCO2 POC ABG pO2 132 H Sodium Potassium Chloride Carbon Dioxide BUN Creatinine Glucose POC Glucose 203 H Lactic Acid Calcium Ionized Calcium Phosphorus AST Alkaline Phosphatase Lactate Dehydrogenase CK-MB (CK-2) Troponin T C-Reactive Protein Total Protein Albumin LDL Cholesterol Direct PTH Intact Fluid Total Protein Salicylates Crossmatch Prewarmed 07/09/17 07/09/17 07/09/17 05:02 05:33 12:07 WBC RBC Hgb Hct MCV MCHC RDW Plt Count Lymph % (Auto) [place] % (Auto) Lymph # [place] # Seg Neutrophils % Seg Neuts % (Manual) Lymphocytes % (Manual) Seg Neutrophils # Seg Neutrophils # Man Lymphocytes # (Manual) POC ABG pH POC ABG pCO2 POC ABG pO2 Sodium Potassium Chloride Carbon Dioxide BUN 61 H Creatinine 4.0 H Glucose 183 H POC Glucose 177 H 276 H Lactic Acid Calcium 7.6 L Ionized Calcium Phosphorus AST Alkaline Phosphatase Lactate Dehydrogenase CK-MB (CK-2) Troponin T C-Reactive Protein Total Protein Albumin LDL Cholesterol Direct PTH Intact Fluid Total Protein Salicylates Crossmatch Prewarmed 07/09/17 07/10/17 07/10/17 18:54 03:50 03:50 WBC 16.8 H RBC 2.77 L Hgb 8.1 L Hct 24.9 L MCV MCHC RDW 15.7 H Plt Count Lymph % (Auto) 4.3 L [place] % (Auto) 10.8 H Lymph # 0.7 L [place] # 1.8 H Seg Neutrophils % 83.5 H Seg Neuts % (Manual) Lymphocytes % (Manual) Seg Neutrophils # 14.1 H Seg Neutrophils # Man Lymphocytes # (Manual) POC ABG pH POC ABG pCO2 POC ABG pO2 Sodium Potassium Chloride Carbon Dioxide BUN 31 H Creatinine 2.5 H Glucose 129 H POC Glucose 178 H Lactic Acid Calcium 8.1 L Ionized Calcium Phosphorus AST Alkaline Phosphatase Lactate Dehydrogenase CK-MB (CK-2) Troponin T C-Reactive Protein Total Protein Albumin LDL Cholesterol Direct PTH Intact Fluid Total Protein Salicylates Crossmatch Prewarmed 07/10/17 07/10/17 07/10/17 05:41 10:02 10:07 WBC 16.3 H RBC 2.66 L Hgb 7.9 L Hct 23.5 L MCV MCHC RDW 16.1 H Plt Count Lymph % (Auto) 4.8 L [place] % (Auto) 9.6 H Lymph # 0.8 L [place] # 1.6 H Seg Neutrophils % 84.0 H Seg Neuts % (Manual) Lymphocytes % (Manual) Seg Neutrophils # 13.7 H Seg Neutrophils # Man Lymphocytes # (Manual) POC ABG pH POC ABG pCO2 POC ABG pO2 Sodium Potassium Chloride Carbon Dioxide BUN 35 H Creatinine 2.6 H Glucose 196 H POC Glucose 160 H Lactic Acid Calcium 7.9 L Ionized Calcium Phosphorus AST Alkaline Phosphatase Lactate Dehydrogenase CK-MB (CK-2) Troponin T C-Reactive Protein Total Protein Albumin LDL Cholesterol Direct PTH Intact Fluid Total Protein Salicylates Crossmatch Prewarmed 07/10/17 07/10/17 07/10/17 11:21 14:14 16:36 WBC RBC Hgb Hct MCV MCHC RDW Plt Count Lymph % (Auto) [place] % (Auto) Lymph # [place] # Seg Neutrophils % Seg Neuts % (Manual) Lymphocytes % (Manual) Seg Neutrophils # Seg Neutrophils # Man Lymphocytes # (Manual) POC ABG pH POC ABG pCO2 POC ABG pO2 138 H Sodium Potassium Chloride Carbon Dioxide BUN Creatinine Glucose POC Glucose 206 H 133 H Lactic Acid Calcium Ionized Calcium Phosphorus AST Alkaline Phosphatase Lactate Dehydrogenase CK-MB (CK-2) Troponin T C-Reactive Protein Total Protein Albumin LDL Cholesterol Direct PTH Intact Fluid Total Protein Salicylates Crossmatch Prewarmed 07/11/17 07/11/17 07/11/17 04:08 08:19 13:58 WBC RBC Hgb Hct MCV MCHC RDW Plt Count Lymph % (Auto) [place] % (Auto) Lymph # [place] # Seg Neutrophils % Seg Neuts % (Manual) Lymphocytes % (Manual) Seg Neutrophils # Seg Neutrophils # Man Lymphocytes # (Manual) POC ABG pH POC ABG pCO2 POC ABG pO2 Sodium Potassium Chloride Carbon Dioxide BUN 45 H Creatinine 3.1 H Glucose POC Glucose 155 H 199 H Lactic Acid Calcium 7.8 L Ionized Calcium Phosphorus AST Alkaline Phosphatase Lactate Dehydrogenase CK-MB (CK-2) Troponin T C-Reactive Protein Total Protein Albumin LDL Cholesterol Direct PTH Intact Fluid Total Protein Salicylates Crossmatch Prewarmed 07/11/17 07/11/17 07/12/17 17:52 23:39 04:37 WBC 12.9 H RBC 2.62 L Hgb 7.6 L Hct 24.0 L MCV MCHC RDW 16.0 H Plt Count Lymph % (Auto) 4.8 L [place] % (Auto) 8.6 H Lymph # 0.6 L [place] # 1.1 H Seg Neutrophils % 84.8 H Seg Neuts % (Manual) Lymphocytes % (Manual) Seg Neutrophils # 10.9 H Seg Neutrophils # Man Lymphocytes # (Manual) POC ABG pH POC ABG pCO2 POC ABG pO2 Sodium Potassium Chloride Carbon Dioxide BUN Creatinine Glucose POC Glucose 133 H 129 H Lactic Acid Calcium Ionized Calcium Phosphorus AST Alkaline Phosphatase Lactate Dehydrogenase CK-MB (CK-2) Troponin T C-Reactive Protein Total Protein Albumin LDL Cholesterol Direct PTH Intact Fluid Total Protein Salicylates Crossmatch Prewarmed 07/12/17 07/12/17 07/12/17 04:37 05:39 11:41 WBC RBC Hgb Hct MCV MCHC RDW Plt Count Lymph % (Auto) [place] % (Auto) Lymph # [place] # Seg Neutrophils % Seg Neuts % (Manual) Lymphocytes % (Manual) Seg Neutrophils # Seg Neutrophils # Man Lymphocytes # (Manual) POC ABG pH POC ABG pCO2 POC ABG pO2 Sodium Potassium Chloride Carbon Dioxide BUN 29 H Creatinine 2.1 H Glucose 137 H POC Glucose 149 H 203 H Lactic Acid Calcium 8.0 L Ionized Calcium Phosphorus AST Alkaline Phosphatase Lactate Dehydrogenase CK-MB (CK-2) Troponin T C-Reactive Protein Total Protein Albumin LDL Cholesterol Direct PTH Intact Fluid Total Protein Salicylates Crossmatch Prewarmed 07/13/17 07/13/17 07/13/17 04:46 05:35 12:14 WBC RBC Hgb Hct MCV MCHC RDW Plt Count Lymph % (Auto) [place] % (Auto) Lymph # [place] # Seg Neutrophils % Seg Neuts % (Manual) Lymphocytes % (Manual) Seg Neutrophils # Seg Neutrophils # Man Lymphocytes # (Manual) POC ABG pH POC ABG pCO2 POC ABG pO2 Sodium Potassium Chloride Carbon Dioxide BUN 46 H Creatinine 2.8 H Glucose 128 H POC Glucose 139 H 243 H Lactic Acid Calcium 7.5 L Ionized Calcium Phosphorus AST Alkaline Phosphatase Lactate Dehydrogenase CK-MB (CK-2) Troponin T C-Reactive Protein Total Protein Albumin LDL Cholesterol Direct PTH Intact Fluid Total Protein Salicylates Crossmatch Prewarmed 07/13/17 07/13/1717 17:33 23:48 05:32 WBC RBC Hgb Hct MCV MCHC RDW Plt Count Lymph % (Auto) [place] % (Auto) Lymph # [place] # Seg Neutrophils % Seg Neuts % (Manual) Lymphocytes % (Manual) Seg Neutrophils # Seg Neutrophils # Man Lymphocytes # (Manual) POC ABG pH POC ABG pCO2 POC ABG pO2 Sodium Potassium Chloride Carbon Dioxide BUN Creatinine Glucose POC Glucose 193 H 133 H 143 H Lactic Acid Calcium Ionized Calcium Phosphorus AST Alkaline Phosphatase Lactate Dehydrogenase CK-MB (CK-2) Troponin T C-Reactive Protein Total Protein Albumin LDL Cholesterol Direct PTH Intact Fluid Total Protein Salicylates Crossmatch Prewarmed 07/14/17 07/14/17 07/15/17 11:43 17:49 05:09 WBC RBC Hgb Hct MCV MCHC RDW Plt Count Lymph % (Auto) [place] % (Auto) Lymph # [place] # Seg Neutrophils % Seg Neuts % (Manual) Lymphocytes % (Manual) Seg Neutrophils # Seg Neutrophils # Man Lymphocytes # (Manual) POC ABG pH POC ABG pCO2 POC ABG pO2 Sodium Potassium Chloride Carbon Dioxide BUN Creatinine Glucose POC Glucose 143 H 195 H 61 L Lactic Acid Calcium Ionized Calcium Phosphorus AST Alkaline Phosphatase Lactate Dehydrogenase CK-MB (CK-2) Troponin T C-Reactive Protein Total Protein Albumin LDL Cholesterol Direct PTH Intact Fluid Total Protein Salicylates Crossmatch Prewarmed 07/15/17 07/15/17 07/15/17 12:00 12:52 12:52 WBC 13.6 H RBC 1.76 L Hgb 5.2 L* Hct 15.8 L* MCV MCHC RDW 16.1 H Plt Count Lymph % (Auto) 4.7 L [place] % (Auto) 8.3 H Lymph # 0.6 L [place] # 1.1 H Seg Neutrophils % 85.4 H Seg Neuts % (Manual) Lymphocytes % (Manual) Seg Neutrophils # 11.7 H Seg Neutrophils # Man Lymphocytes # (Manual) POC ABG pH POC ABG pCO2 POC ABG pO2 Sodium Potassium Chloride Carbon Dioxide BUN 54 H Creatinine 2.7 H Glucose 157 H POC Glucose 164 H Lactic Acid Calcium 7.1 L Ionized Calcium Phosphorus 1.90 L AST 50 H Alkaline Phosphatase 152 H Lactate Dehydrogenase CK-MB (CK-2) Troponin T C-Reactive Protein Total Protein 4.7 L Albumin 1.6 L LDL Cholesterol Direct PTH Intact Fluid Total Protein Salicylates Crossmatch Prewarmed 07/15/17 07/15/17 07/15/17 12:52 14:49 14:49 WBC RBC Hgb 6.5 L Hct 19.6 L* MCV MCHC RDW Plt Count Lymph % (Auto) [place] % (Auto) Lymph # [place] # Seg Neutrophils % Seg Neuts % (Manual) Lymphocytes % (Manual) Seg Neutrophils # Seg Neutrophils # Man Lymphocytes # (Manual) POC ABG pH POC ABG pCO2 POC ABG pO2 Sodium Potassium Chloride Carbon Dioxide BUN Creatinine Glucose POC Glucose Lactic Acid Calcium Ionized Calcium Phosphorus AST Alkaline Phosphatase Lactate Dehydrogenase CK-MB (CK-2) Troponin T C-Reactive Protein Total Protein Albumin LDL Cholesterol Direct PTH Intact 159.8 H Fluid Total Protein Salicylates Crossmatch Prewarmed See Detail 07/15/17 07/15/17 07/16/17 17:54 23:45 02:33 WBC RBC Hgb 7.0 L Hct 20.6 L MCV MCHC RDW Plt Count Lymph % (Auto) [place] % (Auto) Lymph # [place] # Seg Neutrophils % Seg Neuts % (Manual) Lymphocytes % (Manual) Seg Neutrophils # Seg Neutrophils # Man Lymphocytes # (Manual) POC ABG pH POC ABG pCO2 POC ABG pO2 Sodium Potassium Chloride Carbon Dioxide BUN Creatinine Glucose POC Glucose 216 H 126 H Lactic Acid Calcium Ionized Calcium Phosphorus AST Alkaline Phosphatase Lactate Dehydrogenase CK-MB (CK-2) Troponin T C-Reactive Protein Total Protein Albumin LDL Cholesterol Direct PTH Intact Fluid Total Protein Salicylates Crossmatch Prewarmed 07/16/17 07/16/17 07/16/17 05:32 08:32 11:59 WBC RBC Hgb 6.2 L Hct 18.9 L* MCV MCHC RDW Plt Count Lymph % (Auto) [place] % (Auto) Lymph # [place] # Seg Neutrophils % Seg Neuts % (Manual) Lymphocytes % (Manual) Seg Neutrophils # Seg Neutrophils # Man Lymphocytes # (Manual) POC ABG pH POC ABG pCO2 POC ABG pO2 Sodium Potassium Chloride Carbon Dioxide BUN Creatinine Glucose POC Glucose 174 H 206 H Lactic Acid Calcium Ionized Calcium Phosphorus AST Alkaline Phosphatase Lactate Dehydrogenase CK-MB (CK-2) Troponin T C-Reactive Protein Total Protein Albumin LDL Cholesterol Direct PTH Intact Fluid Total Protein Salicylates Crossmatch Prewarmed 07/16/17 07/16/17 07/16/17 12:46 18:04 21:23 WBC RBC Hgb 7.4 L Hct 22.1 L MCV MCHC RDW Plt Count Lymph % (Auto) [place] % (Auto) Lymph # [place] # Seg Neutrophils % Seg Neuts % (Manual) Lymphocytes % (Manual) Seg Neutrophils # Seg Neutrophils # Man Lymphocytes # (Manual) POC ABG pH 7.511 H POC ABG pCO2 POC ABG pO2 155 H Sodium Potassium Chloride Carbon Dioxide BUN Creatinine Glucose POC Glucose 52 L Lactic Acid Calcium Ionized Calcium Phosphorus AST Alkaline Phosphatase Lactate Dehydrogenase CK-MB (CK-2) Troponin T C-Reactive Protein Total Protein Albumin LDL Cholesterol Direct PTH Intact Fluid Total Protein Salicylates Crossmatch Prewarmed 07/16/17 07/17/17 07/17/17 23:51 05:01 05:17 WBC RBC Hgb Hct MCV MCHC RDW Plt Count Lymph % (Auto) [place] % (Auto) Lymph # [place] # Seg Neutrophils % Seg Neuts % (Manual) Lymphocytes % (Manual) Seg Neutrophils # Seg Neutrophils # Man Lymphocytes # (Manual) POC ABG pH POC ABG pCO2 POC ABG pO2 Sodium Potassium Chloride Carbon Dioxide BUN Creatinine Glucose 103 H POC Glucose 109 H < 40 L Lactic Acid Calcium Ionized Calcium Phosphorus AST Alkaline Phosphatase Lactate Dehydrogenase CK-MB (CK-2) Troponin T C-Reactive Protein Total Protein Albumin LDL Cholesterol Direct PTH Intact Fluid Total Protein Salicylates Crossmatch Prewarmed Allied health notes reviewed: nursing
--- NOTE | 2017-07-17 16:20 | Progress Note ---
Assessment and Plan Assessment and plan: Anoxic brain injury Status post cardiac arrest Seizure disorder Sepsis with hypotension History of diarrhea DKA with diabetic coma ESRD on HD - Patient is intubated and on mechanical ventilation, off sedation - Finished antibiotics - Patient was treated according to DKA protocol now resolved and on long-acting insulin DVT prophylaxis - Heparin Disposition - Patient will have trach on Sunday - Continue ICU care Severe Anemia - S/p blood transfusion - Will monitor H&H closely The high probability of a clinically significant, sudden or life threatening deterioration of the [CV, neurology, renal] system(s) required my full and direct attention, intervention and personal management. The aggregate critical care time was [32] minutes. This time is in addition to time spent performing reported procedures but includes the following: [x] Data Review and interpretation [x] Patient assessment and monitoring of vital signs [x] Documentation [x] Medication orders and management History Interval history: Patient was seen and evaluated this morning, patient in non communicative. Patient is off sedation. I have discussed the plan with his son yesterday. Hospitalist Physical - Physical exam Narrative exam: Patient is intubated and on mechanical ventilation. The patient appeared well nourished and normally developed. Vital signs as documented. Head exam is unremarkable. No scleral icterus . Neck is without jugular venous distension, thyromegaly, or carotid bruits. Lungs are clear to auscultation. Cardiac exam reveals regular rate and Rhythm. First and second heart sounds normal. No murmurs, rubs or gallops. Abdominal exam reveals normal bowel sounds, no masses, no organomegaly and no aortic enlargement. Extremities are nonedematous and both femoral and pedal pulses are normal. 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 He is off sedation. - Constitutional Vitals: Temp Pulse Resp BP Pulse Ox 97.7 F 78 12 108/55 100 07/17/17 12:00 07/17/17 14:00 07/17/17 14:00 07/17/17 14:00 07/17/17 14:00 General appearance: Present: mild distress, other (intubated, unresponsive) Results - Labs CBC & Chem 7: 07/16/17 21:23 07/17/17 05:17 Labs: Laboratory Last Values WBC 13.6 K/mm3 (4.5-11.0) H 07/15/17 12:52 RBC 1.76 M/mm3 (3.65-5.03) L 07/15/17 12:52 Hgb 7.4 gm/dl (11.8-15.2) L 07/16/17 21:23 Hct 22.1 % (35.5-45.6) L 07/16/17 21:23 MCV 90 fl (84-94) 07/15/17 12:52 MCH 30 pg (28-32) 07/15/17 12:52 MCHC 33 % (32-34) 07/15/17 12:52 RDW 16.1 % (13.2-15.2) H 07/15/17 12:52 Plt Count 205 K/mm3 (140-440) 07/15/17 12:52 Lymph % (Auto) 4.7 % (13.4-35.0) L 07/15/17 12:52 [place] % (Auto) 8.3 % (0.0-7.3) H 07/15/17 12:52 Eos % (Auto) 1.3 % (0.0-4.3) 07/15/17 12:52 Baso % (Auto) 0.3 % (0.0-1.8) 07/15/17 12:52 Lymph # 0.6 K/mm3 (1.2-5.4) L 07/15/17 12:52 [place] # 1.1 K/mm3 (0.0-0.8) H 07/15/17 12:52 Eos # 0.2 K/mm3 (0.0-0.4) 07/15/17 12:52 Baso # 0.0 K/mm3 (0.0-0.1) 07/15/17 12:52 Add Manual Diff Complete 07/05/17 Unknown Total Counted 100 07/05/17 Unknown Seg Neutrophils % 85.4 % (40.0-70.0) H 07/15/17 12:52 Seg Neuts % (Manual) 89.0 % (40.0-70.0) H 07/05/17 Unknown Band Neutrophils % 1.0 % 07/05/17 Unknown Lymphocytes % (Manual) 7.0 % (13.4-35.0) L 07/05/17 Unknown Reactive Lymphs % (Man) 0 % 07/05/17 Unknown Monocytes % (Manual) 3.0 % (0.0-7.3) 07/05/17 Unknown Eosinophils % (Manual) 0 % (0.0-4.3) 07/05/17 Unknown Basophils % (Manual) 0 % (0.0-1.8) 07/05/17 Unknown Metamyelocytes % 0 % 07/05/17 Unknown Myelocytes % 0 % 07/05/17 Unknown Promyelocytes % 0 % 07/05/17 Unknown Blast Cells % 0 % 07/05/17 Unknown Nucleated RBC % Not Reportable 07/05/17 Unknown Seg Neutrophils # 11.7 K/mm3 (1.8-7.7) H 07/15/17 12:52 Seg Neutrophils # Man 19.8 K/mm3 (1.8-7.7) H 07/05/17 Unknown Band Neutrophils # 0.2 K/mm3 07/05/17 Unknown Lymphocytes # (Manual) 1.6 K/mm3 (1.2-5.4) 07/05/17 Unknown Abs React Lymphs (Man) 0.0 K/mm3 07/05/17 Unknown Monocytes # (Manual) 0.7 K/mm3 (0.0-0.8) 07/05/17 Unknown Eosinophils # (Manual) 0.0 K/mm3 (0.0-0.4) 07/05/17 Unknown Basophils # (Manual) 0.0 K/mm3 (0.0-0.1) 07/05/17 Unknown Metamyelocytes # 0.0 K/mm3 07/05/17 Unknown Myelocytes # 0.0 K/mm3 07/05/17 Unknown Promyelocytes # 0.0 K/mm3 07/05/17 Unknown Blast Cells # 0.0 K/mm3 07/05/17 Unknown WBC Morphology Not Reportable 07/05/17 Unknown Hypersegmented Neuts Not Reportable 07/05/17 Unknown Hyposegmented Neuts Not Reportable 07/05/17 Unknown Hypogranular Neuts Not Reportable 07/05/17 Unknown Smudge Cells Not Reportable 07/05/17 Unknown Toxic Granulation Not Reportable 07/05/17 Unknown Toxic Vacuolation Not Reportable 07/05/17 Unknown Dohle Bodies Not Reportable 07/05/17 Unknown Pelger-Huet Anomaly Not Reportable 07/05/17 Unknown [place] Rods Not Reportable 07/05/17 Unknown Platelet Estimate Appears decreased 07/05/17 Unknown Clumped Platelets Not Reportable 07/05/17 Unknown Plt Clumps, EDTA Not Reportable 07/05/17 Unknown Large Platelets Not Reportable 07/05/17 Unknown Giant Platelets Not Reportable 07/05/17 Unknown Platelet Satelliting Not Reportable 07/05/17 Unknown Plt Morphology Comment Not Reportable 07/05/17 Unknown RBC Morphology Not Reportable 07/05/17 Unknown Dimorphic RBCs Not Reportable 07/05/17 Unknown Polychromasia Not Reportable 07/05/17 Unknown Hypochromasia Not Reportable 07/05/17 Unknown Poikilocytosis 1+ 07/05/17 Unknown Anisocytosis 1+ 07/05/17 Unknown Microcytosis Few 07/05/17 Unknown Macrocytosis Not Reportable 07/05/17 Unknown Spherocytes Not Reportable 07/05/17 Unknown Pappenheimer Bodies Not Reportable 07/05/17 Unknown Sickle Cells Not Reportable 07/05/17 Unknown Target Cells Not Reportable 07/05/17 Unknown Tear Drop Cells Not Reportable 07/05/17 Unknown Ovalocytes Not Reportable 07/05/17 Unknown Helmet Cells Not Reportable 07/05/17 Unknown [place] Bodies Not Reportable 07/05/17 Unknown [place] Rings Not Reportable 07/05/17 Unknown [place] Cells Not Reportable 07/05/17 Unknown Bite Cells Not Reportable 07/05/17 Unknown Crenated Cell Not Reportable 07/05/17 Unknown Elliptocytes Not Reportable 07/05/17 Unknown Acanthocytes (Spur) Not Reportable 07/05/17 Unknown Rouleaux Not Reportable 07/05/17 Unknown Hemoglobin C Crystals Not Reportable 07/05/17 Unknown Schistocytes Not Reportable 07/05/17 Unknown Malaria parasites Not Reportable 07/05/17 Unknown Morales Bodies Not Reportable 07/05/17 Unknown Hem Pathologist Commnt No 07/05/17 Unknown PT 12.9 Sec. (12.2-14.9) 07/06/17 08:30 INR 0.93 (0.87-1.13) 07/06/17 08:30 Heparin Anti-Xa, Unfract Negative (Negative) 07/10/17 10:07 POC ABG pH 7.511 (7.35-7.45) H 07/16/17 12:46 POC ABG pCO2 35.2 (35-45) 07/16/17 12:46 POC ABG pO2 155 (80-105) H 07/16/17 12:46 POC ABG HCO3 28.2 07/16/17 12:46 POC ABG Total CO2 29 07/16/17 12:46 POC ABG O2 Sat 100 07/16/17 12:46 POC ABG Base Excess 5 07/16/17 12:46 FiO2 28 % 07/16/17 12:46 Sodium 137 mmol/L (137-145) 07/15/17 12:52 Potassium 3.8 mmol/L (3.6-5.0) 07/15/17 12:52 Chloride 98.7 mmol/L (98-107) 07/15/17 12:52 Carbon Dioxide 27 mmol/L (22-30) 07/15/17 12:52 Anion Gap 15 mmol/L 07/15/17 12:52 BUN 54 mg/dL (9-20) H 07/15/17 12:52 Creatinine 2.7 mg/dL (0.8-1.5) H 07/15/17 12:52 Estimated GFR 28 ml/min 07/15/17 12:52 BUN/Creatinine Ratio 20 % 07/15/17 12:52 Glucose 103 mg/dL (75-100) H 07/17/17 05:17 POC Glucose 72 (70-105) 07/17/17 05:40 Osmolality 357 Mosm/kg 07/02/17 15:35 Lactic Acid 2.30 mmol/L (0.7-2.0) H* 07/05/17 Unknown Calcium 7.1 mg/dL (8.4-10.2) L 07/15/17 12:52 Ionized Calcium 4.6 mg/dL (4.8-5.6) L 07/04/17 14:10 Phosphorus 1.90 mg/dL (2.5-4.5) L 07/15/17 12:52 Magnesium 1.80 mg/dL (1.7-2.3) 07/04/17 14:10 Total Bilirubin < 0.20 mg/dL (0.1-1.2) 07/15/17 12:52 AST 50 units/L (5-40) H 07/15/17 12:52 ALT 14 units/L (7-56) 07/15/17 12:52 Alkaline Phosphatase 152 units/L (35-129) H 07/15/17 12:52 Lactate Dehydrogenase 880 units/L (91-180) H 07/06/17 08:30 Total Creatine Kinase 58 units/L (55-170) 07/05/17 12:40 CK-MB (CK-2) 1.8 ng/mL (0.0-4.0) 07/05/17 12:40 CK-MB (CK-2) Rel Index 3.1 (0-4) 07/05/17 12:40 Troponin T 0.277 ng/mL (0.00-0.029) H* 07/05/17 12:40 C-Reactive Protein 9.90 mg/dL (0.00-1.30) H 07/05/17 Unknown Total Protein 4.7 g/dL (6.3-8.2) L 07/15/17 12:52 Albumin 1.6 g/dL (3.9-5) L 07/15/17 12:52 Albumin/Globulin Ratio 0.5 % 07/15/17 12:52 Triglycerides 83 mg/dL (2-149) 07/04/17 14:10 Cholesterol 83 mg/dL (50-199) 07/04/17 14:10 LDL Cholesterol Direct 22 mg/dL (50-130) L 07/04/17 14:10 HDL Cholesterol 45 mg/dL (40-59) 07/04/17 14:10 Cholesterol/HDL Ratio 1.84 % 07/04/17 14:10 TSH 3.200 mlU/mL (0.270-4.200) 07/02/17 Unknown PTH Intact 159.8 pg/mL (15-65) H 07/15/17 12:52 Urine Color Yellow (Yellow) 07/02/17 17:25 Urine Turbidity Clear (Clear) 07/02/17 17: Urine pH 5.0 (5.0-7.0) 07/02/17 17:25 Ur Specific [place] 1.018 (1.003-1.030) 07/02/17 17:25 Urine Protein 100 mg/dl mg/dL (Negative) 07/02/17 17:25 Urine Glucose (UA) >=500 mg/dL (Negative) 07/02/17 17:25 Urine Ketones Neg mg/dL (Negative) 07/02/17 17:25 Urine Blood Sm (Negative) 07/02/17 17:25 Urine Nitrite Neg (Negative) 07/02/17 17:25 Urine Bilirubin Neg (Negative) 07/02/17 17:25 Urine Urobilinogen < 2.0 mg/dL (<2.0) 07/02/17 17:25 Ur Leukocyte Esterase Neg (Negative) 07/02/17 17:25 Urine WBC (Auto) 1.0 /HPF (0.0-6.0) 07/02/17 17:25 Urine RBC (Auto) 2.0 /HPF (0.0-6.0) 07/02/17 17:25 U Epithel Cells (Auto) 1.0 /HPF (0-13.0) 07/02/17 17:25 Fluid Type Pleural 07/06/17 16:53 Fluid Color Yellow 07/06/17 16:53 Fluid Appearance Clear 07/06/17 16:53 Fluid WBC 9 /mm3 07/06/17 16:53 Fluid RBC 6 /mm3 07/06/17 16:53 Fluid Seg Neutrophils 51.2 % 07/06/17 16:53 Fluid Lymphocytes 43.9 % 07/06/17 16:53 Fluid Reactive Lymphs 0 % 07/06/17 16:53 Fluid Monocytes 4.9 % 07/06/17 16:53 Fluid Eosinophils 0 % 07/06/17 16:53 Fluid Basophils 0 % 07/06/17 16:53 Fluid Total Protein < 3.0 (15.0-45.0) L 07/06/17 Unknown Fluid LDH 132 07/06/17 Unknown Fluid Comment 07/06/17 16:53 Salicylates < 0.3 mg/dL (2.8-20.0) L 07/02/17 Unknown Urine Opiates Screen Presumptive negative 07/02/17 17:25 Urine Methadone Screen Presumptive negative 07/02/17 17:25 Acetaminophen < 15.0 ug/mL (10.0-30.0) 07/02/17 Unknown Ur Barbiturates Screen Presumptive negative 07/02/17 17:25 Ur Phencyclidine Scrn Presumptive negative 07/02/17 17:25 Ur Amphetamines Screen Presumptive negative 07/02/17 17:25 U Benzodiazepines Scrn Presumptive negative 07/02/17 17:25 Urine Cocaine Screen Presumptive negative 07/02/17 17:25 U Marijuana (THC) Screen Presumptive negative 07/02/17 17:25 Drugs of Abuse Note Disclamer 07/02/17 17:25 Plasma/Serum Alcohol < 0.01 gm% (0-0.07) 07/02/17 Unknown Heparin-induced Plt Ab Negative (Negative) 07/10/17 10:07 UF Heparin High Dose 0 % Release 07/10/17 10:07 TREVOR UFH Low Dose 0.1 0 % Release 07/10/17 10:07 TREVOR UFH Low Dose 0.5 0 % Release 07/10/17 10:07 Blood Type O POSITIVE 07/15/17 14:49 Antibody Screen Positive 07/15/17 14:49 Prewarmed Antibody Srcn Negative 07/15/17 14:49 Antibody Identification Anti-M 07/15/17 14:49 Crossmatch See Detail 07/15/17 14:49 Crossmatch Prewarmed See Detail 07/15/17 14:49
[2017-07-17 18:08] LABS: Hematocrit 26.7 % (35.5-45.6); Hemoglobin 8.9 gm/dl (11.8-15.2)
[2017-07-18 04:54] LABS: Hematocrit 26.2 % (35.5-45.6); Hemoglobin 8.9 gm/dl (11.8-15.2); Mean Corpuscular HGB Conc 34 % (32-34); Mean Corpuscular Hemoglobin 32 pg (28-32); Mean Corpuscular Volume 94 fl (84-94); Red Blood Count 2.78 M/mm3 (3.65-5.03); Red Cell Distribution Width 15.9 % (13.2-15.2); White Blood Count 14.9 K/mm3 (4.5-11.0)
[2017-07-18 05:04] LABS: Calcium 7.9 mg/dL (8.4-10.2); Chloride 99.2 mmol/L (98-107); Potassium 4.7 mmol/L (3.6-5.0)
[2017-07-18 05:09] LABS: Platelet Count 285 K/mm3 (140-440)
[2017-07-18] MEDS: NOVOLOG SUB-Q SCH ×4 (05:51→18:18)
--- NOTE | 2017-07-18 09:49 | Progress Note ---
Assessment and Plan Acute Hypoxemic Respiratory Failure on MVS Seizure Disorder s/p Cardiac Arrest ESRD on Dialysis Sepsis Syndrome Hyperosmolar non ketotic state Anemia Leucocytosis Acute Encephalopathy Thrombocytopenia - awaiting trach and PEG - H&H holding post transfusions - AMS still a rate limiting factor to safe extubation - s/p EEG - continue and complete antibiotics per ID recs - continue prn hydralazine and resumed home amlodipine dose (10mg qd) and coreg - keep set rate at 12/min - continue daily PSV trials as tolerated - continue aspiration precautions / addressing VAP bundle daily - continue to wean FiO2 for sats > 94% - continue enteral nutrition as tolerated - continue bronchodilators and pulmonary toilet - continue and adjust AB's per ID recs - continue glycemic control with SSI and levemir (target BG <180mg/dl) - continue GI & VTE prophylaxis - Continue to monitor platelet count while on heparin - continue other care per attending / other consultants - flu and pneumovax addressed per protocol ...the hope is that as sepsis resolves mental status will improve but that has not borne out so far ....30' CCT without overlap Subjective Date of service: 07/18/17 Principal diagnosis: Acute Hypoxemic Resp Failure; S/P Cardiac Arrest; Hyperosmolar Non-ketotic Interval history: Patient is seen today for: Acute Hypoxemic Resp Failure; S/P Cardiac Arrest; Hyperosmolar Non-ketotic Seen and examined at bedside; 24hour events reviewed; nursing and respiratory care staff consulted; no adverse overnight events reported to me; remains on MVS ; AMS is persistent; tentatively for trach and PEG in am; remains tolerating daytime PSV trials Objective Vital Signs - 12hr 07/17/17 07/17/17 07/17/17 22:00 22:01 23:00 Temperature Pulse Rate 92 H 95 H 99 H Pulse Rate [ From Monitor] Respiratory 13 14 Rate Blood Pressure 139/76 136/78 O2 Sat by Pulse 100 100 Oximetry 07/17/17 07/17/17 07/18/17 23:03 23:56 00:00 Temperature 97.9 F Pulse Rate 97 H 80 95 H Pulse Rate [ From Monitor] Respiratory 14 Rate Blood Pressure 136/78 136/78 128/73 O2 Sat by Pulse 100 100 Oximetry 07/18/17 07/18/17 07/18/17 01:00 02:00 03:01 Temperature Pulse Rate 90 87 91 H Pulse Rate [ From Monitor] Respiratory 13 12 11 L Rate Blood Pressure 122/77 122/62 126/69 O2 Sat by Pulse 100 100 100 Oximetry 07/18/17 07/18/17 07/18/17 04:00 04:28 05:00 Temperature 98.5 F Pulse Rate 98 H 86 87 Pulse Rate [ From Monitor] Respiratory 12 12 Rate Blood Pressure 139/74 139/74 127/75 O2 Sat by Pulse 100 100 100 Oximetry 07/18/17 07/18/17 07/18/17 06:01 07:10 08:00 Temperature 97.3 F L Pulse Rate 94 H 84 Pulse Rate [ 97 H From Monitor] Respiratory 11 L 14 12 Rate Blood Pressure 127/75 133/72 O2 Sat by Pulse 100 98 Oximetry Constitutional: no acute distress, other (encephalopathic) Eyes: non-icteric ENT: oropharynx moist, other (ETT at 25cm TIKI) Neck: supple, no lymphadenopathy, JVD, other (no thyromegally) Effort: mildly labored Ascultation: Bilateral: diminished breath sounds (bases), rales Percussion: Bilateral: not dull Cardiovascular: regular rate and rhythm, other (no rubs / murmurs) Gastrointestinal: normoactive bowel sounds, soft, non-tender, non-distended, other (no HSM) Integumentary: normal Extremities: no cyanosis, no edema, pulses normal, no ischemia or petechiae Neurologic: pupils equal and round, unable to assess, other (no spontaneous limb movements) Psychiatric: other (unable to assess) CBC and BMP: 07/18/17 03:54 07/18/17 03:54 ABG, PT/INR, D-dimer: ABG POC ABG pH 7.511 (7.35-7.45) H 07/16/17 12:46 POC ABG pCO2 35.2 (35-45) 07/16/17 12:46 POC ABG pO2 155 (80-105) H 07/16/17 12:46 POC ABG HCO3 28.2 07/16/17 12:46 POC ABG Total CO2 29 07/16/17 12:46 POC ABG O2 Sat 100 07/16/17 12:46 PT/INR, D-dimer PT 12.9 Sec. (12.2-14.9) 07/06/17 08:30 INR 0.93 (0.87-1.13) 07/06/17 08:30 Abnormal lab findings: Abnormal Labs 07/02/17 07/02/17 07/02/17 15:03 15:12 17:49 WBC 13.5 H RBC 3.47 L Hgb 9.9 L Hct 33.1 L MCV 96 H MCHC 30 L RDW 15.4 H Plt Count 130 L Lymph % (Auto) [place] % (Auto) Lymph # [place] # Seg Neutrophils % Seg Neuts % (Manual) 95.0 H Lymphocytes % (Manual) 3.0 L Seg Neutrophils # Seg Neutrophils # Man 12.8 H Lymphocytes # (Manual) 0.4 L POC ABG pH POC ABG pCO2 POC ABG pO2 Sodium Potassium Chloride Carbon Dioxide BUN Creatinine Glucose POC Glucose > 500 H Lactic Acid 7.80 H* Calcium Ionized Calcium Phosphorus AST Alkaline Phosphatase Lactate Dehydrogenase CK-MB (CK-2) Troponin T C-Reactive Protein Total Protein Albumin LDL Cholesterol Direct PTH Intact Fluid Total Protein Salicylates Crossmatch Prewarmed 07/02/17 07/02/17 07/02/17 20:29 21:31 23:38 WBC RBC Hgb Hct MCV MCHC RDW Plt Count Lymph % (Auto) [place] % (Auto) Lymph # [place] # Seg Neutrophils % Seg Neuts % (Manual) Lymphocytes % (Manual) Seg Neutrophils # Seg Neutrophils # Man Lymphocytes # (Manual) POC ABG pH POC ABG pCO2 POC ABG pO2 Sodium 129 L 132 L Potassium Chloride 87.2 L 93.7 L Carbon Dioxide 18 L 15 L BUN 51 H 47 H Creatinine 4.3 H 4.1 H Glucose 950 H* 825 H* POC Glucose Lactic Acid 5.70 H* Calcium 7.1 L 6.8 L Ionized Calcium Phosphorus AST Alkaline Phosphatase Lactate Dehydrogenase CK-MB (CK-2) Troponin T C-Reactive Protein Total Protein Albumin LDL Cholesterol Direct PTH Intact Fluid Total Protein Salicylates Crossmatch Prewarmed 07/02/17 07/02/17 07/02/17 23:38 23:44 Unknown WBC RBC Hgb Hct MCV MCHC RDW Plt Count Lymph % (Auto) [place] % (Auto) Lymph # [place] # Seg Neutrophils % Seg Neuts % (Manual) Lymphocytes % (Manual) Seg Neutrophils # Seg Neutrophils # Man Lymphocytes # (Manual) POC ABG pH POC ABG pCO2 POC ABG pO2 Sodium 132 L 125 L D Potassium Chloride 94.6 L 85.6 L Carbon Dioxide 17 L 19 L D BUN 51 H 50 H Creatinine 4.1 H 4.4 H D Glucose 772 H* 1113 H* POC Glucose > 500 H Lactic Acid Calcium 6.7 L 7.2 L Ionized Calcium Phosphorus AST Alkaline Phosphatase 139 H Lactate Dehydrogenase CK-MB (CK-2) Troponin T C-Reactive Protein Total Protein 6.1 L Albumin 3.3 L LDL Cholesterol Direct PTH Intact Fluid Total Protein Salicylates Crossmatch Prewarmed 07/02/17 07/02/17 07/03/17 Unknown Unknown 01:00 WBC RBC Hgb Hct MCV MCHC RDW Plt Count Lymph % (Auto) [place] % (Auto) Lymph # [place] # Seg Neutrophils % Seg Neuts % (Manual) Lymphocytes % (Manual) Seg Neutrophils # Seg Neutrophils # Man Lymphocytes # (Manual) POC ABG pH POC ABG pCO2 POC ABG pO2 Sodium 134 L Potassium Chloride 96.4 L Carbon Dioxide 19 L BUN 50 H Creatinine 4.0 H Glucose 677 H* POC Glucose Lactic Acid 6.30 H* Calcium 6.6 L Ionized Calcium Phosphorus AST Alkaline Phosphatase Lactate Dehydrogenase CK-MB (CK-2) Troponin T C-Reactive Protein Total Protein Albumin LDL Cholesterol Direct PTH Intact Fluid Total Protein Salicylates < 0.3 L Crossmatch Prewarmed 07/03/17 07/03/17 07/03/17 01:04 02:15 02:15 WBC RBC Hgb Hct MCV MCHC RDW Plt Count Lymph % (Auto) [place] % (Auto) Lymph # [place] # Seg Neutrophils % Seg Neuts % (Manual) Lymphocytes % (Manual) Seg Neutrophils # Seg Neutrophils # Man Lymphocytes # (Manual) POC ABG pH POC ABG pCO2 POC ABG pO2 Sodium 134 L Potassium Chloride 97.6 L Carbon Dioxide 19 L BUN 50 H Creatinine 4.2 H Glucose 592 H* POC Glucose > 500 H Lactic Acid 4.30 H* Calcium 6.6 L Ionized Calcium Phosphorus AST Alkaline Phosphatase Lactate Dehydrogenase CK-MB (CK-2) Troponin T C-Reactive Protein Total Protein Albumin LDL Cholesterol Direct PTH Intact Fluid Total Protein Salicylates Crossmatch Prewarmed 07/03/17 07/03/17 07/03/17 02:21 03:25 04:10 WBC RBC Hgb Hct MCV MCHC RDW Plt Count Lymph % (Auto) [place] % (Auto) Lymph # [place] # Seg Neutrophils % Seg Neuts % (Manual) Lymphocytes % (Manual) Seg Neutrophils # Seg Neutrophils # Man Lymphocytes # (Manual) POC ABG pH POC ABG pCO2 POC ABG pO2 Sodium Potassium Chloride Carbon Dioxide 19 L BUN 50 H Creatinine 4.0 H Glucose 416 H POC Glucose 482 H > 500 H Lactic Acid Calcium 6.8 L Ionized Calcium Phosphorus AST Alkaline Phosphatase Lactate Dehydrogenase CK-MB (CK-2) Troponin T C-Reactive Protein Total Protein Albumin LDL Cholesterol Direct PTH Intact Fluid Total Protein Salicylates Crossmatch Prewarmed 07/03/17 07/03/17 07/03/17 04:30 04:36 05:33 WBC RBC Hgb Hct MCV MCHC RDW Plt Count Lymph % (Auto) [place] % (Auto) Lymph # [place] # Seg Neutrophils % Seg Neuts % (Manual) Lymphocytes % (Manual) Seg Neutrophils # Seg Neutrophils # Man Lymphocytes # (Manual) POC ABG pH 7.311 L POC ABG pCO2 33.5 L POC ABG pO2 73 L Sodium Potassium Chloride Carbon Dioxide BUN Creatinine Glucose POC Glucose 389 H 326 H Lactic Acid Calcium Ionized Calcium Phosphorus AST Alkaline Phosphatase Lactate Dehydrogenase CK-MB (CK-2) Troponin T C-Reactive Protein Total Protein Albumin LDL Cholesterol Direct PTH Intact Fluid Total Protein Salicylates Crossmatch Prewarmed 07/03/17 07/03/17 07/03/17 06:06 07:38 09:58 WBC RBC Hgb Hct MCV MCHC RDW Plt Count Lymph % (Auto) [place] % (Auto) Lymph # [place] # Seg Neutrophils % Seg Neuts % (Manual) Lymphocytes % (Manual) Seg Neutrophils # Seg Neutrophils # Man Lymphocytes # (Manual) POC ABG pH POC ABG pCO2 POC ABG pO2 Sodium Potassium Chloride Carbon Dioxide BUN Creatinine Glucose POC Glucose 247 H 118 H 52 L Lactic Acid Calcium Ionized Calcium Phosphorus AST Alkaline Phosphatase Lactate Dehydrogenase CK-MB (CK-2) Troponin T C-Reactive Protein Total Protein Albumin LDL Cholesterol Direct PTH Intact Fluid Total Protein Salicylates Crossmatch Prewarmed 07/03/17 07/03/17 07/03/17 11:00 13:16 15:02 WBC RBC Hgb Hct MCV MCHC RDW Plt Count Lymph % (Auto) [place] % (Auto) Lymph # [place] # Seg Neutrophils % Seg Neuts % (Manual) Lymphocytes % (Manual) Seg Neutrophils # Seg Neutrophils # Man Lymphocytes # (Manual) POC ABG pH POC ABG pCO2 POC ABG pO2 Sodium Potassium Chloride Carbon Dioxide BUN Creatinine Glucose POC Glucose 64 L 112 H 158 H Lactic Acid Calcium Ionized Calcium Phosphorus AST Alkaline Phosphatase Lactate Dehydrogenase CK-MB (CK-2) Troponin T C-Reactive Protein Total Protein Albumin LDL Cholesterol Direct PTH Intact Fluid Total Protein Salicylates Crossmatch Prewarmed 07/03/17 07/03/17 07/03/17 18:17 Unknown Unknown WBC RBC Hgb Hct MCV MCHC RDW Plt Count Lymph % (Auto) [place] % (Auto) Lymph # [place] # Seg Neutrophils % Seg Neuts % (Manual) Lymphocytes % (Manual) Seg Neutrophils # Seg Neutrophils # Man Lymphocytes # (Manual) POC ABG pH POC ABG pCO2 POC ABG pO2 Sodium Potassium Chloride Carbon Dioxide BUN Creatinine Glucose POC Glucose 131 H Lactic Acid 2.40 H* Calcium Ionized Calcium Phosphorus AST Alkaline Phosphatase Lactate Dehydrogenase CK-MB (CK-2) Troponin T C-Reactive Protein 1.90 H Total Protein Albumin LDL Cholesterol Direct PTH Intact Fluid Total Protein Salicylates Crossmatch Prewarmed 07/03/17 07/04/17 07/04/17 Unknown 00:13 02:04 WBC RBC Hgb Hct MCV MCHC RDW Plt Count Lymph % (Auto) [place] % (Auto) Lymph # [place] # Seg Neutrophils % Seg Neuts % (Manual) Lymphocytes % (Manual) Seg Neutrophils # Seg Neutrophils # Man Lymphocytes # (Manual) POC ABG pH POC ABG pCO2 POC ABG pO2 Sodium Potassium Chloride Carbon Dioxide BUN 52 H Creatinine 4.3 H Glucose POC Glucose 69 L 111 H Lactic Acid Calcium 7.2 L Ionized Calcium Phosphorus AST Alkaline Phosphatase Lactate Dehydrogenase CK-MB (CK-2) Troponin T C-Reactive Protein Total Protein Albumin LDL Cholesterol Direct PTH Intact Fluid Total Protein Salicylates Crossmatch Prewarmed 07/04/17 07/04/17 07/04/17 04:38 08:00 08:00 WBC 28.3 H RBC 3.55 L Hgb 10.3 L Hct 31.2 L MCV MCHC RDW 15.3 H Plt Count 101 L Lymph % (Auto) [place] % (Auto) Lymph # [place] # Seg Neutrophils % Seg Neuts % (Manual) Lymphocytes % (Manual) Seg Neutrophils # Seg Neutrophils # Man Lymphocytes # (Manual) POC ABG pH POC ABG pCO2 27.6 L POC ABG pO2 Sodium Potassium Chloride Carbon Dioxide 20 L BUN 62 H Creatinine 4.7 H Glucose POC Glucose Lactic Acid Calcium 7.0 L Ionized Calcium Phosphorus AST Alkaline Phosphatase Lactate Dehydrogenase CK-MB (CK-2) Troponin T C-Reactive Protein Total Protein Albumin LDL Cholesterol Direct PTH Intact Fluid Total Protein Salicylates Crossmatch Prewarmed 07/04/17 07/04/17 07/04/17 14:10 14:10 14:33 WBC RBC Hgb Hct MCV MCHC RDW Plt Count Lymph % (Auto) [place] % (Auto) Lymph # [place] # Seg Neutrophils % Seg Neuts % (Manual) Lymphocytes % (Manual) Seg Neutrophils # Seg Neutrophils # Man Lymphocytes # (Manual) POC ABG pH 7.474 H POC ABG pCO2 29.4 L POC ABG pO2 Sodium Potassium Chloride Carbon Dioxide BUN Creatinine Glucose POC Glucose Lactic Acid Calcium Ionized Calcium 4.6 L Phosphorus AST Alkaline Phosphatase Lactate Dehydrogenase CK-MB (CK-2) 4.3 H Troponin T 0.282 H* C-Reactive Protein Total Protein Albumin LDL Cholesterol Direct 22 L PTH Intact Fluid Total Protein Salicylates Crossmatch Prewarmed 07/04/17 07/04/17 07/04/17 17:26 20:40 23:34 WBC RBC Hgb Hct MCV MCHC RDW Plt Count Lymph % (Auto) [place] % (Auto) Lymph # [place] # Seg Neutrophils % Seg Neuts % (Manual) Lymphocytes % (Manual) Seg Neutrophils # Seg Neutrophils # Man Lymphocytes # (Manual) POC ABG pH POC ABG pCO2 POC ABG pO2 Sodium Potassium Chloride Carbon Dioxide BUN Creatinine Glucose POC Glucose 201 H 188 H Lactic Acid Calcium Ionized Calcium Phosphorus AST Alkaline Phosphatase Lactate Dehydrogenase CK-MB (CK-2) Troponin T 0.276 H* C-Reactive Protein Total Protein Albumin LDL Cholesterol Direct PTH Intact Fluid Total Protein Salicylates Crossmatch Prewarmed 07/05/17 07/05/17 07/05/17 05:42 07:50 11:52 WBC RBC Hgb Hct MCV MCHC RDW Plt Count Lymph % (Auto) [place] % (Auto) Lymph # [place] # Seg Neutrophils % Seg Neuts % (Manual) Lymphocytes % (Manual) Seg Neutrophils # Seg Neutrophils # Man Lymphocytes # (Manual) POC ABG pH POC ABG pCO2 POC ABG pO2 117 H Sodium Potassium Chloride Carbon Dioxide BUN Creatinine Glucose POC Glucose 126 H 110 H Lactic Acid Calcium Ionized Calcium Phosphorus AST Alkaline Phosphatase Lactate Dehydrogenase CK-MB (CK-2) Troponin T C-Reactive Protein Total Protein Albumin LDL Cholesterol Direct PTH Intact Fluid Total Protein Salicylates Crossmatch Prewarmed 07/05/17 07/05/17 07/05/17 12:40 17:51 18:12 WBC RBC Hgb Hct MCV MCHC RDW Plt Count Lymph % (Auto) [place] % (Auto) Lymph # [place] # Seg Neutrophils % Seg Neuts % (Manual) Lymphocytes % (Manual) Seg Neutrophils # Seg Neutrophils # Man Lymphocytes # (Manual) POC ABG pH POC ABG pCO2 POC ABG pO2 Sodium Potassium Chloride Carbon Dioxide BUN Creatinine Glucose POC Glucose 57 L 69 L Lactic Acid Calcium Ionized Calcium Phosphorus AST Alkaline Phosphatase Lactate Dehydrogenase CK-MB (CK-2) Troponin T 0.277 H* C-Reactive Protein Total Protein Albumin LDL Cholesterol Direct PTH Intact Fluid Total Protein Salicylates Crossmatch Prewarmed 07/05/17 07/05/17 07/05/17 Unknown Unknown Unknown WBC 22.2 H RBC 3.24 L Hgb 9.7 L Hct 28.6 L MCV MCHC RDW Plt Count 89 L Lymph % (Auto) [place] % (Auto) Lymph # [place] # Seg Neutrophils % Seg Neuts % (Manual) 89.0 H Lymphocytes % (Manual) 7.0 L Seg Neutrophils # Seg Neutrophils # Man 19.8 H Lymphocytes # (Manual) POC ABG pH POC ABG pCO2 POC ABG pO2 Sodium Potassium 3.5 L Chloride Carbon Dioxide BUN 37 H Creatinine 3.1 H Glucose 120 H POC Glucose Lactic Acid 2.30 H* Calcium 7.7 L Ionized Calcium Phosphorus AST Alkaline Phosphatase Lactate Dehydrogenase CK-MB (CK-2) Troponin T C-Reactive Protein Total Protein Albumin LDL Cholesterol Direct PTH Intact Fluid Total Protein Salicylates Crossmatch Prewarmed 07/05/17 07/06/17 07/06/17 Unknown 03:25 03:25 WBC 17.7 H RBC 3.14 L Hgb 9.3 L Hct 27.8 L MCV MCHC RDW 15.7 H Plt Count 82 L Lymph % (Auto) 2.5 L [place] % (Auto) Lymph # 0.4 L [place] # 1.1 H Seg Neutrophils % 90.0 H Seg Neuts % (Manual) Lymphocytes % (Manual) Seg Neutrophils # 15.9 H Seg Neutrophils # Man Lymphocytes # (Manual) POC ABG pH POC ABG pCO2 POC ABG pO2 Sodium Potassium 3.3 L Chloride Carbon Dioxide BUN 44 H Creatinine 3.6 H Glucose 132 H POC Glucose Lactic Acid Calcium 7.4 L Ionized Calcium Phosphorus AST Alkaline Phosphatase Lactate Dehydrogenase CK-MB (CK-2) Troponin T C-Reactive Protein 9.90 H Total Protein Albumin LDL Cholesterol Direct PTH Intact Fluid Total Protein Salicylates Crossmatch Prewarmed 07/06/17 07/06/17 07/06/17 04:19 05:24 08:30 WBC RBC Hgb Hct MCV MCHC RDW Plt Count Lymph % (Auto) [place] % (Auto) Lymph # [place] # Seg Neutrophils % Seg Neuts % (Manual) Lymphocytes % (Manual) Seg Neutrophils # Seg Neutrophils # Man Lymphocytes # (Manual) POC ABG pH POC ABG pCO2 34.3 L POC ABG pO2 Sodium Potassium Chloride Carbon Dioxide BUN Creatinine Glucose POC Glucose 174 H Lactic Acid Calcium Ionized Calcium Phosphorus AST Alkaline Phosphatase Lactate Dehydrogenase 880 H CK-MB (CK-2) Troponin T C-Reactive Protein Total Protein 4.9 L Albumin LDL Cholesterol Direct PTH Intact Fluid Total Protein Salicylates Crossmatch Prewarmed 07/06/17 07/06/17 07/06/17 11:13 17:14 23:38 WBC RBC Hgb Hct MCV MCHC RDW Plt Count Lymph % (Auto) [place] % (Auto) Lymph # [place] # Seg Neutrophils % Seg Neuts % (Manual) Lymphocytes % (Manual) Seg Neutrophils # Seg Neutrophils # Man Lymphocytes # (Manual) POC ABG pH POC ABG pCO2 POC ABG pO2 Sodium Potassium Chloride Carbon Dioxide BUN Creatinine Glucose POC Glucose 216 H 211 H 122 H Lactic Acid Calcium Ionized Calcium Phosphorus AST Alkaline Phosphatase Lactate Dehydrogenase CK-MB (CK-2) Troponin T C-Reactive Protein Total Protein Albumin LDL Cholesterol Direct PTH Intact Fluid Total Protein Salicylates Crossmatch Prewarmed 07/06/17 07/07/17 07/07/17 Unknown 04:38 05:00 WBC 16.1 H RBC 3.00 L Hgb 8.9 L Hct 26.6 L MCV MCHC RDW 15.6 H Plt Count 106 L Lymph % (Auto) 4.1 L [place] % (Auto) 8.0 H Lymph # 0.7 L [place] # 1.3 H Seg Neutrophils % 86.6 H Seg Neuts % (Manual) Lymphocytes % (Manual) Seg Neutrophils # 13.9 H Seg Neutrophils # Man Lymphocytes # (Manual) POC ABG pH 7.455 H POC ABG pCO2 POC ABG pO2 134 H Sodium Potassium Chloride Carbon Dioxide BUN Creatinine Glucose POC Glucose Lactic Acid Calcium Ionized Calcium Phosphorus AST Alkaline Phosphatase Lactate Dehydrogenase CK-MB (CK-2) Troponin T C-Reactive Protein Total Protein Albumin LDL Cholesterol Direct PTH Intact Fluid Total Protein < 3.0 L Salicylates Crossmatch Prewarmed 07/07/17 07/07/17 07/07/17 05:00 05:17 11:33 WBC RBC Hgb Hct MCV MCHC RDW Plt Count Lymph % (Auto) [place] % (Auto) Lymph # [place] # Seg Neutrophils % Seg Neuts % (Manual) Lymphocytes % (Manual) Seg Neutrophils # Seg Neutrophils # Man Lymphocytes # (Manual) POC ABG pH POC ABG pCO2 POC ABG pO2 Sodium Potassium Chloride Carbon Dioxide BUN 30 H Creatinine 2.8 H Glucose 188 H POC Glucose 189 H 275 H Lactic Acid Calcium 7.9 L Ionized Calcium Phosphorus AST Alkaline Phosphatase Lactate Dehydrogenase CK-MB (CK-2) Troponin T C-Reactive Protein Total Protein Albumin LDL Cholesterol Direct PTH Intact Fluid Total Protein Salicylates Crossmatch Prewarmed 07/07/17 07/07/17 07/07/17 16:04 17:08 23:45 WBC RBC Hgb Hct MCV MCHC RDW Plt Count Lymph % (Auto) [place] % (Auto) Lymph # [place] # Seg Neutrophils % Seg Neuts % (Manual) Lymphocytes % (Manual) Seg Neutrophils # Seg Neutrophils # Man Lymphocytes # (Manual) POC ABG pH POC ABG pCO2 POC ABG pO2 126 H Sodium Potassium Chloride Carbon Dioxide BUN Creatinine Glucose POC Glucose 241 H 118 H Lactic Acid Calcium Ionized Calcium Phosphorus AST Alkaline Phosphatase Lactate Dehydrogenase CK-MB (CK-2) Troponin T C-Reactive Protein Total Protein Albumin LDL Cholesterol Direct PTH Intact Fluid Total Protein Salicylates Crossmatch Prewarmed 07/08/17 07/08/17 07/08/17 05:30 05:54 06:12 WBC 17.0 H RBC 3.27 L Hgb 9.5 L Hct 29.1 L MCV MCHC RDW 15.6 H Plt Count 133 L Lymph % (Auto) 4.6 L [place] % (Auto) 9.2 H Lymph # 0.8 L [place] # 1.6 H Seg Neutrophils % 83.9 H Seg Neuts % (Manual) Lymphocytes % (Manual) Seg Neutrophils # 14.3 H Seg Neutrophils # Man Lymphocytes # (Manual) POC ABG pH 7.477 H POC ABG pCO2 POC ABG pO2 118 H Sodium Potassium Chloride Carbon Dioxide BUN Creatinine Glucose POC Glucose 199 H Lactic Acid Calcium Ionized Calcium Phosphorus AST Alkaline Phosphatase Lactate Dehydrogenase CK-MB (CK-2) Troponin T C-Reactive Protein Total Protein Albumin LDL Cholesterol Direct PTH Intact Fluid Total Protein Salicylates Crossmatch Prewarmed 07/08/17 07/08/17 07/08/17 06:12 11:37 17:21 WBC RBC Hgb Hct MCV MCHC RDW Plt Count Lymph % (Auto) [place] % (Auto) Lymph # [place] # Seg Neutrophils % Seg Neuts % (Manual) Lymphocytes % (Manual) Seg Neutrophils # Seg Neutrophils # Man Lymphocytes # (Manual) POC ABG pH POC ABG pCO2 POC ABG pO2 Sodium Potassium Chloride Carbon Dioxide BUN 44 H Creatinine 3.4 H Glucose 190 H POC Glucose 236 H 186 H Lactic Acid Calcium 7.8 L Ionized Calcium Phosphorus AST Alkaline Phosphatase Lactate Dehydrogenase CK-MB (CK-2) Troponin T C-Reactive Protein Total Protein Albumin LDL Cholesterol Direct PTH Intact Fluid Total Protein Salicylates Crossmatch Prewarmed 07/08/17 07/09/17 07/09/17 23:09 04:27 05:02 WBC 17.8 H RBC 2.88 L Hgb 8.5 L Hct 25.6 L MCV MCHC RDW 15.5 H Plt Count Lymph % (Auto) 4.6 L [place] % (Auto) 10.2 H Lymph # 0.8 L [place] # 1.8 H Seg Neutrophils % 83.4 H Seg Neuts % (Manual) Lymphocytes % (Manual) Seg Neutrophils # 14.8 H Seg Neutrophils # Man Lymphocytes # (Manual) POC ABG pH POC ABG pCO2 POC ABG pO2 132 H Sodium Potassium Chloride Carbon Dioxide BUN Creatinine Glucose POC Glucose 203 H Lactic Acid Calcium Ionized Calcium Phosphorus AST Alkaline Phosphatase Lactate Dehydrogenase CK-MB (CK-2) Troponin T C-Reactive Protein Total Protein Albumin LDL Cholesterol Direct PTH Intact Fluid Total Protein Salicylates Crossmatch Prewarmed 07/09/17 07/09/17 07/09/17 05:02 05:33 12:07 WBC RBC Hgb Hct MCV MCHC RDW Plt Count Lymph % (Auto) [place] % (Auto) Lymph # [place] # Seg Neutrophils % Seg Neuts % (Manual) Lymphocytes % (Manual) Seg Neutrophils # Seg Neutrophils # Man Lymphocytes # (Manual) POC ABG pH POC ABG pCO2 POC ABG pO2 Sodium Potassium Chloride Carbon Dioxide BUN 61 H Creatinine 4.0 H Glucose 183 H POC Glucose 177 H 276 H Lactic Acid Calcium 7.6 L Ionized Calcium Phosphorus AST Alkaline Phosphatase Lactate Dehydrogenase CK-MB (CK-2) Troponin T C-Reactive Protein Total Protein Albumin LDL Cholesterol Direct PTH Intact Fluid Total Protein Salicylates Crossmatch Prewarmed 07/09/17 07/10/17 07/10/17 18:54 03:50 03:50 WBC 16.8 H RBC 2.77 L Hgb 8.1 L Hct 24.9 L MCV MCHC RDW 15.7 H Plt Count Lymph % (Auto) 4.3 L [place] % (Auto) 10.8 H Lymph # 0.7 L [place] # 1.8 H Seg Neutrophils % 83.5 H Seg Neuts % (Manual) Lymphocytes % (Manual) Seg Neutrophils # 14.1 H Seg Neutrophils # Man Lymphocytes # (Manual) POC ABG pH POC ABG pCO2 POC ABG pO2 Sodium Potassium Chloride Carbon Dioxide BUN 31 H Creatinine 2.5 H Glucose 129 H POC Glucose 178 H Lactic Acid Calcium 8.1 L Ionized Calcium Phosphorus AST Alkaline Phosphatase Lactate Dehydrogenase CK-MB (CK-2) Troponin T C-Reactive Protein Total Protein Albumin LDL Cholesterol Direct PTH Intact Fluid Total Protein Salicylates Crossmatch Prewarmed 07/10/17 07/10/17 07/10/17 05:41 10:02 10:07 WBC 16.3 H RBC 2.66 L Hgb 7.9 L Hct 23.5 L MCV MCHC RDW 16.1 H Plt Count Lymph % (Auto) 4.8 L [place] % (Auto) 9.6 H Lymph # 0.8 L [place] # 1.6 H Seg Neutrophils % 84.0 H Seg Neuts % (Manual) Lymphocytes % (Manual) Seg Neutrophils # 13.7 H Seg Neutrophils # Man Lymphocytes # (Manual) POC ABG pH POC ABG pCO2 POC ABG pO2 Sodium Potassium Chloride Carbon Dioxide BUN 35 H Creatinine 2.6 H Glucose 196 H POC Glucose 160 H Lactic Acid Calcium 7.9 L Ionized Calcium Phosphorus AST Alkaline Phosphatase Lactate Dehydrogenase CK-MB (CK-2) Troponin T C-Reactive Protein Total Protein Albumin LDL Cholesterol Direct PTH Intact Fluid Total Protein Salicylates Crossmatch Prewarmed 07/10/17 07/10/17 07/10/17 11:21 14:14 16:36 WBC RBC Hgb Hct MCV MCHC RDW Plt Count Lymph % (Auto) [place] % (Auto) Lymph # [place] # Seg Neutrophils % Seg Neuts % (Manual) Lymphocytes % (Manual) Seg Neutrophils # Seg Neutrophils # Man Lymphocytes # (Manual) POC ABG pH POC ABG pCO2 POC ABG pO2 138 H Sodium Potassium Chloride Carbon Dioxide BUN Creatinine Glucose POC Glucose 206 H 133 H Lactic Acid Calcium Ionized Calcium Phosphorus AST Alkaline Phosphatase Lactate Dehydrogenase CK-MB (CK-2) Troponin T C-Reactive Protein Total Protein Albumin LDL Cholesterol Direct PTH Intact Fluid Total Protein Salicylates Crossmatch Prewarmed 07/11/17 07/11/17 07/11/17 04:08 08:19 13:58 WBC RBC Hgb Hct MCV MCHC RDW Plt Count Lymph % (Auto) [place] % (Auto) Lymph # [place] # Seg Neutrophils % Seg Neuts % (Manual) Lymphocytes % (Manual) Seg Neutrophils # Seg Neutrophils # Man Lymphocytes # (Manual) POC ABG pH POC ABG pCO2 POC ABG pO2 Sodium Potassium Chloride Carbon Dioxide BUN 45 H Creatinine 3.1 H Glucose POC Glucose 155 H 199 H Lactic Acid Calcium 7.8 L Ionized Calcium Phosphorus AST Alkaline Phosphatase Lactate Dehydrogenase CK-MB (CK-2) Troponin T C-Reactive Protein Total Protein Albumin LDL Cholesterol Direct PTH Intact Fluid Total Protein Salicylates Crossmatch Prewarmed 07/11/17 07/11/17 07/12/17 17:52 23:39 04:37 WBC 12.9 H RBC 2.62 L Hgb 7.6 L Hct 24.0 L MCV MCHC RDW 16.0 H Plt Count Lymph % (Auto) 4.8 L [place] % (Auto) 8.6 H Lymph # 0.6 L [place] # 1.1 H Seg Neutrophils % 84.8 H Seg Neuts % (Manual) Lymphocytes % (Manual) Seg Neutrophils # 10.9 H Seg Neutrophils # Man Lymphocytes # (Manual) POC ABG pH POC ABG pCO2 POC ABG pO2 Sodium Potassium Chloride Carbon Dioxide BUN Creatinine Glucose POC Glucose 133 H 129 H Lactic Acid Calcium Ionized Calcium Phosphorus AST Alkaline Phosphatase Lactate Dehydrogenase CK-MB (CK-2) Troponin T C-Reactive Protein Total Protein Albumin LDL Cholesterol Direct PTH Intact Fluid Total Protein Salicylates Crossmatch Prewarmed 07/12/17 07/12/17 07/12/17 04:37 05:39 11:41 WBC RBC Hgb Hct MCV MCHC RDW Plt Count Lymph % (Auto) [place] % (Auto) Lymph # [place] # Seg Neutrophils % Seg Neuts % (Manual) Lymphocytes % (Manual) Seg Neutrophils # Seg Neutrophils # Man Lymphocytes # (Manual) POC ABG pH POC ABG pCO2 POC ABG pO2 Sodium Potassium Chloride Carbon Dioxide BUN 29 H Creatinine 2.1 H Glucose 137 H POC Glucose 149 H 203 H Lactic Acid Calcium 8.0 L Ionized Calcium Phosphorus AST Alkaline Phosphatase Lactate Dehydrogenase CK-MB (CK-2) Troponin T C-Reactive Protein Total Protein Albumin LDL Cholesterol Direct PTH Intact Fluid Total Protein Salicylates Crossmatch Prewarmed 07/13/17 07/13/17 07/13/17 04:46 05:35 12:14 WBC RBC Hgb Hct MCV MCHC RDW Plt Count Lymph % (Auto) [place] % (Auto) Lymph # [place] # Seg Neutrophils % Seg Neuts % (Manual) Lymphocytes % (Manual) Seg Neutrophils # Seg Neutrophils # Man Lymphocytes # (Manual) POC ABG pH POC ABG pCO2 POC ABG pO2 Sodium Potassium Chloride Carbon Dioxide BUN 46 H Creatinine 2.8 H Glucose 128 H POC Glucose 139 H 243 H Lactic Acid Calcium 7.5 L Ionized Calcium Phosphorus AST Alkaline Phosphatase Lactate Dehydrogenase CK-MB (CK-2) Troponin T C-Reactive Protein Total Protein Albumin LDL Cholesterol Direct PTH Intact Fluid Total Protein Salicylates Crossmatch Prewarmed 07/13/17 07/13/17 07/14/17 17:33 23:48 05:32 WBC RBC Hgb Hct MCV MCHC RDW Plt Count Lymph % (Auto) [place] % (Auto) Lymph # [place] # Seg Neutrophils % Seg Neuts % (Manual) Lymphocytes % (Manual) Seg Neutrophils # Seg Neutrophils # Man Lymphocytes # (Manual) POC ABG pH POC ABG pCO2 POC ABG pO2 Sodium Potassium Chloride Carbon Dioxide BUN Creatinine Glucose POC Glucose 193 H 133 H 143 H Lactic Acid Calcium Ionized Calcium Phosphorus AST Alkaline Phosphatase Lactate Dehydrogenase CK-MB (CK-2) Troponin T C-Reactive Protein Total Protein Albumin LDL Cholesterol Direct PTH Intact Fluid Total Protein Salicylates Crossmatch Prewarmed 07/14/17 07/14/17 07/15/17 11:43 17:49 05:09 WBC RBC Hgb Hct MCV MCHC RDW Plt Count Lymph % (Auto) [place] % (Auto) Lymph # [place] # Seg Neutrophils % Seg Neuts % (Manual) Lymphocytes % (Manual) Seg Neutrophils # Seg Neutrophils # Man Lymphocytes # (Manual) POC ABG pH POC ABG pCO2 POC ABG pO2 Sodium Potassium Chloride Carbon Dioxide BUN Creatinine Glucose POC Glucose 143 H 195 H 61 L Lactic Acid Calcium Ionized Calcium Phosphorus AST Alkaline Phosphatase Lactate Dehydrogenase CK-MB (CK-2) Troponin T C-Reactive Protein Total Protein Albumin LDL Cholesterol Direct PTH Intact Fluid Total Protein Salicylates Crossmatch Prewarmed 07/15/17 07/15/17 07/15/17 12:00 12:52 12:52 WBC 13.6 H RBC 1.76 L Hgb 5.2 L* Hct 15.8 L* MCV MCHC RDW 16.1 H Plt Count Lymph % (Auto) 4.7 L [place] % (Auto) 8.3 H Lymph # 0.6 L [place] # 1.1 H Seg Neutrophils % 85.4 H Seg Neuts % (Manual) Lymphocytes % (Manual) Seg Neutrophils # 11.7 H Seg Neutrophils # Man Lymphocytes # (Manual) POC ABG pH POC ABG pCO2 POC ABG pO2 Sodium Potassium Chloride Carbon Dioxide BUN 54 H Creatinine 2.7 H Glucose 157 H POC Glucose 164 H Lactic Acid Calcium 7.1 L Ionized Calcium Phosphorus 1.90 L AST 50 H Alkaline Phosphatase 152 H Lactate Dehydrogenase CK-MB (CK-2) Troponin T C-Reactive Protein Total Protein 4.7 L Albumin 1.6 L LDL Cholesterol Direct PTH Intact Fluid Total Protein Salicylates Crossmatch Prewarmed 07/15/17 07/15/17 07/15/17 12:52 14:49 14:49 WBC RBC Hgb 6.5 L Hct 19.6 L* MCV MCHC RDW Plt Count Lymph % (Auto) [place] % (Auto) Lymph # [place] # Seg Neutrophils % Seg Neuts % (Manual) Lymphocytes % (Manual) Seg Neutrophils # Seg Neutrophils # Man Lymphocytes # (Manual) POC ABG pH POC ABG pCO2 POC ABG pO2 Sodium Potassium Chloride Carbon Dioxide BUN Creatinine Glucose POC Glucose Lactic Acid Calcium Ionized Calcium Phosphorus AST Alkaline Phosphatase Lactate Dehydrogenase CK-MB (CK-2) Troponin T C-Reactive Protein Total Protein Albumin LDL Cholesterol Direct PTH Intact 159.8 H Fluid Total Protein Salicylates Crossmatch Prewarmed See Detail 07/15/17 07/15/17 07/16/17 17:54 23:45 02:33 WBC RBC Hgb 7.0 L Hct 20.6 L MCV MCHC RDW Plt Count Lymph % (Auto) [place] % (Auto) Lymph # [place] # Seg Neutrophils % Seg Neuts % (Manual) Lymphocytes % (Manual) Seg Neutrophils # Seg Neutrophils # Man Lymphocytes # (Manual) POC ABG pH POC ABG pCO2 POC ABG pO2 Sodium Potassium Chloride Carbon Dioxide BUN Creatinine Glucose POC Glucose 216 H 126 H Lactic Acid Calcium Ionized Calcium Phosphorus AST Alkaline Phosphatase Lactate Dehydrogenase CK-MB (CK-2) Troponin T C-Reactive Protein Total Protein Albumin LDL Cholesterol Direct PTH Intact Fluid Total Protein Salicylates Crossmatch Prewarmed 07/16/17 07/16/17 07/16/17 05:32 08:32 11:59 WBC RBC Hgb 6.2 L Hct 18.9 L* MCV MCHC RDW Plt Count Lymph % (Auto) [place] % (Auto) Lymph # [place] # Seg Neutrophils % Seg Neuts % (Manual) Lymphocytes % (Manual) Seg Neutrophils # Seg Neutrophils # Man Lymphocytes # (Manual) POC ABG pH POC ABG pCO2 POC ABG pO2 Sodium Potassium Chloride Carbon Dioxide BUN Creatinine Glucose POC Glucose 174 H 206 H Lactic Acid Calcium Ionized Calcium Phosphorus AST Alkaline Phosphatase Lactate Dehydrogenase CK-MB (CK-2) Troponin T C-Reactive Protein Total Protein Albumin LDL Cholesterol Direct PTH Intact Fluid Total Protein Salicylates Crossmatch Prewarmed 07/16/17 07/16/17 07/16/17 12:46 18:04 21:23 WBC RBC Hgb 7.4 L Hct 22.1 L MCV MCHC RDW Plt Count Lymph % (Auto) [place] % (Auto) Lymph # [place] # Seg Neutrophils % Seg Neuts % (Manual) Lymphocytes % (Manual) Seg Neutrophils # Seg Neutrophils # Man Lymphocytes # (Manual) POC ABG pH 7.511 H POC ABG pCO2 POC ABG pO2 155 H Sodium Potassium Chloride Carbon Dioxide BUN Creatinine Glucose POC Glucose 52 L Lactic Acid Calcium Ionized Calcium Phosphorus AST Alkaline Phosphatase Lactate Dehydrogenase CK-MB (CK-2) Troponin T C-Reactive Protein Total Protein Albumin LDL Cholesterol Direct PTH Intact Fluid Total Protein Salicylates Crossmatch Prewarmed 07/16/17 07/17/17 07/17/17 23:51 05:01 05:17 WBC RBC Hgb Hct MCV MCHC RDW Plt Count Lymph % (Auto) [place] % (Auto) Lymph # [place] # Seg Neutrophils % Seg Neuts % (Manual) Lymphocytes % (Manual) Seg Neutrophils # Seg Neutrophils # Man Lymphocytes # (Manual) POC ABG pH POC ABG pCO2 POC ABG pO2 Sodium Potassium Chloride Carbon Dioxide BUN Creatinine Glucose 103 H POC Glucose 109 H < 40 L Lactic Acid Calcium Ionized Calcium Phosphorus AST Alkaline Phosphatase Lactate Dehydrogenase CK-MB (CK-2) Troponin T C-Reactive Protein Total Protein Albumin LDL Cholesterol Direct PTH Intact Fluid Total Protein Salicylates Crossmatch Prewarmed 07/17/17 07/17/17 07/17/17 12:39 17:35 17:44 WBC RBC Hgb 8.9 L Hct 26.7 L MCV MCHC RDW Plt Count Lymph % (Auto) [place] % (Auto) Lymph # [place] # Seg Neutrophils % Seg Neuts % (Manual) Lymphocytes % (Manual) Seg Neutrophils # Seg Neutrophils # Man Lymphocytes # (Manual) POC ABG pH POC ABG pCO2 POC ABG pO2 Sodium Potassium Chloride Carbon Dioxide BUN Creatinine Glucose POC Glucose 182 H 194 H Lactic Acid Calcium Ionized Calcium Phosphorus AST Alkaline Phosphatase Lactate Dehydrogenase CK-MB (CK-2) Troponin T C-Reactive Protein Total Protein Albumin LDL Cholesterol Direct PTH Intact Fluid Total Protein Salicylates Crossmatch Prewarmed 07/17/17 07/18/17 07/18/17 23:32 03:54 03:54 WBC 14.9 H RBC 2.78 L Hgb 8.9 L Hct 26.2 L MCV MCHC RDW 15.9 H Plt Count Lymph % (Auto) [place] % (Auto) Lymph # [place] # Seg Neutrophils % Seg Neuts % (Manual) Lymphocytes % (Manual) Seg Neutrophils # Seg Neutrophils # Man Lymphocytes # (Manual) POC ABG pH POC ABG pCO2 POC ABG pO2 Sodium Potassium Chloride Carbon Dioxide BUN 43 H Creatinine 2.6 H Glucose 219 H POC Glucose 190 H Lactic Acid Calcium 7.9 L Ionized Calcium Phosphorus AST Alkaline Phosphatase Lactate Dehydrogenase CK-MB (CK-2) Troponin T C-Reactive Protein Total Protein Albumin LDL Cholesterol Direct PTH Intact Fluid Total Protein Salicylates Crossmatch Prewarmed 07/18/17 05:37 WBC RBC Hgb Hct MCV MCHC RDW Plt Count Lymph % (Auto) [place] % (Auto) Lymph # [place] # Seg Neutrophils % Seg Neuts % (Manual) Lymphocytes % (Manual) Seg Neutrophils # Seg Neutrophils # Man Lymphocytes # (Manual) POC ABG pH POC ABG pCO2 POC ABG pO2 Sodium Potassium Chloride Carbon Dioxide BUN Creatinine Glucose POC Glucose 263 H Lactic Acid Calcium Ionized Calcium Phosphorus AST Alkaline Phosphatase Lactate Dehydrogenase CK-MB (CK-2) Troponin T C-Reactive Protein Total Protein Albumin LDL Cholesterol Direct PTH Intact Fluid Total Protein Salicylates Crossmatch Prewarmed Allied health notes reviewed: nursing
--- NOTE | 2017-07-18 10:09 | Progress Note ---
Assessment and Plan Assessment and plan: 76 YO Male Prison Resident with HTN, DM, ESRD on HD(M,W,F), Severe Malnutrition, presents to ED for evaluation. Pt unable to provide history. Pt found to have new onset seizure at group home that was witnessed by SNF staff. EMS was notified and upon arrival patient was found to by stuporous. Pt transported to [facility] for evaluation. Pt seen and evaluated in ED and found to be in respiratory distress. Pt subsequently found to have asystolic arrest. Pt treated IAW ACLS protocol with return of perfusing cardiac rhythm. Pt found to have Acute respiratory failure and was intubated and placed on vent support. Pt also found to be hypotensive after cardiac arrest and placed on pressor support. Serum glucose found to be above 1000, and patient was in DKA. DKA protocol initiated. Pt admitted to ICU. Anoxic brain injury Acute Respiratory Failure, hypoxic Patient is intubated and on mechanical ventilation, off sedation Status post cardiac arrest Seizure disorder Sepsis with hypotension History of diarrhea DKA with diabetic coma - Patient was treated according to DKA protocol now resolved and on long-acting insulin ESRD on HD - - Finished antibiotics DVT prophylaxis - Heparin Disposition - Patient will have trach on Sunday - Continue ICU care Severe Anemia - S/p blood transfusion - Will monitor H&H closely Awaiting Trache and PEG on The high probability of a clinically significant, sudden or life threatening deterioration of the [CV, neurology, renal] system(s) required my full and direct attention, intervention and personal management. The aggregate critical care time was [32] minutes. This time is in addition to time spent performing reported procedures but includes the following: [x] Data Review and interpretation [x] Patient assessment and monitoring of vital signs [x] Documentation [x] Medication orders and management History Interval history: Patient was seen and evaluated this morning, patient in non communicative. Patient is off sedation. no vomiting, no seizures Hospitalist Physical - Physical exam Narrative exam: - Physical exam Narrative exam: Patient is intubated and on mechanical ventilation. The patient appeared well nourished and normally developed. Vital signs as documented. Head exam is unremarkable. No scleral icterus . Neck is without jugular venous distension, thyromegaly, or carotid bruits. Lungs are clear to auscultation. Cardiac exam reveals regular rate and Rhythm. First and second heart sounds normal. No murmurs, rubs or gallops. Abdominal exam reveals normal bowel sounds, no masses, no organomegaly and no aortic enlargement. Extremities are nonedematous and both femoral and pedal pulses are normal. 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 He is off sedation. - Constitutional Vitals: Temp Pulse Resp BP Pulse Ox 97.3 F L 97 H 12 133/72 98 07/18/17 08:00 07/18/17 08:00 07/18/17 08:00 07/18/17 07:10 07/18/17 07:10 General appearance: Present: mild distress, other (intubated, unresponsive) Results - Labs CBC & Chem 7: 07/18/17 03:54 07/18/17 03:54 Labs: Laboratory Last Values WBC 14.9 K/mm3 (4.5-11.0) H 07/18/17 03:54 RBC 2.78 M/mm3 (3.65-5.03) L 07/18/17 03:54 Hgb 8.9 gm/dl (11.8-15.2) L 07/18/17 03:54 Hct 26.2 % (35.5-45.6) L 07/18/17 03:54 MCV 94 fl (84-94) 07/18/17 03:54 MCH 32 pg (28-32) 07/18/17 03:54 MCHC 34 % (32-34) 07/18/17 03:54 RDW 15.9 % (13.2-15.2) H 07/18/17 03:54 Plt Count 285 K/mm3 (140-440) 07/18/17 03:54 Lymph % (Auto) Scheme Technician 07/18/17 03:54 [place] % (Auto) Scheme Technician 07/18/17 03:54 Eos % (Auto) Scheme Technician 07/18/17 03:54 Baso % (Auto) Scheme Technician 07/18/17 03:54 Lymph # Scheme Technician 07/18/17 03:54 [place] # Scheme Technician 07/18/17 03:54 Eos # Scheme Technician 07/18/17 03:54 Baso # Scheme Technician 07/18/17 03:54 Add Manual Diff Complete 07/05/17 Unknown Total Counted 100 07/05/17 Unknown Seg Neutrophils % Scheme Technician 07/18/17 03:54 Seg Neuts % (Manual) 89.0 % (40.0-70.0) H 07/05/17 Unknown Band Neutrophils % 1.0 % 07/05/17 Unknown Lymphocytes % (Manual) 7.0 % (13.4-35.0) L 07/05/17 Unknown Reactive Lymphs % (Man) 0 % 07/05/17 Unknown Monocytes % (Manual) 3.0 % (0.0-7.3) 07/05/17 Unknown Eosinophils % (Manual) 0 % (0.0-4.3) 07/05/17 Unknown Basophils % (Manual) 0 % (0.0-1.8) 07/05/17 Unknown Metamyelocytes % 0 % 07/05/17 Unknown Myelocytes % 0 % 07/05/17 Unknown Promyelocytes % 0 % 07/05/17 Unknown Blast Cells % 0 % 07/05/17 Unknown Nucleated RBC % Not Reportable 07/05/17 Unknown Seg Neutrophils # Scheme Technician 07/18/17 03:54 Seg Neutrophils # Man 19.8 K/mm3 (1.8-7.7) H 07/05/17 Unknown Band Neutrophils # 0.2 K/mm3 07/05/17 Unknown Lymphocytes # (Manual) 1.6 K/mm3 (1.2-5.4) 07/05/17 Unknown Abs React Lymphs (Man) 0.0 K/mm3 07/05/17 Unknown Monocytes # (Manual) 0.7 K/mm3 (0.0-0.8) 07/05/17 Unknown Eosinophils # (Manual) 0.0 K/mm3 (0.0-0.4) 07/05/17 Unknown Basophils # (Manual) 0.0 K/mm3 (0.0-0.1) 07/05/17 Unknown Metamyelocytes # 0.0 K/mm3 07/05/17 Unknown Myelocytes # 0.0 K/mm3 07/05/17 Unknown Promyelocytes # 0.0 K/mm3 07/05/17 Unknown Blast Cells # 0.0 K/mm3 07/05/17 Unknown WBC Morphology Not Reportable 07/05/17 Unknown Hypersegmented Neuts Not Reportable 07/05/17 Unknown Hyposegmented Neuts Not Reportable 07/05/17 Unknown Hypogranular Neuts Not Reportable 07/05/17 Unknown Smudge Cells Not Reportable 07/05/17 Unknown Toxic Granulation Not Reportable 07/05/17 Unknown Toxic Vacuolation Not Reportable 07/05/17 Unknown Dohle Bodies Not Reportable 07/05/17 Unknown Pelger-Huet Anomaly Not Reportable 07/05/17 Unknown [place]ana Rods Not Reportable 07/05/17 Unknown Platelet Estimate Appears decreased 07/05/17 Unknown Clumped Platelets Not Reportable 07/05/17 Unknown Plt Clumps, EDTA Not Reportable 07/05/17 Unknown Large Platelets Not Reportable 07/05/17 Unknown Giant Platelets Not Reportable 07/05/17 Unknown Platelet Satelliting Not Reportable 07/05/17 Unknown Plt Morphology Comment Not Reportable 07/05/17 Unknown RBC Morphology Not Reportable 07/05/17 Unknown Dimorphic RBCs Not Reportable 07/05/17 Unknown Polychromasia Not Reportable 07/05/17 Unknown Hypochromasia Not Reportable 07/05/17 Unknown Poikilocytosis 1+ 07/05/17 Unknown Anisocytosis 1+ 07/05/17 Unknown Microcytosis Few 07/05/17 Unknown Macrocytosis Not Reportable 07/05/17 Unknown Spherocytes Not Reportable 07/05/17 Unknown Pappenheimer Bodies Not Reportable 07/05/17 Unknown Sickle Cells Not Reportable 07/05/17 Unknown Target Cells Not Reportable 07/05/17 Unknown Tear Drop Cells Not Reportable 07/05/17 Unknown Ovalocytes Not Reportable 07/05/17 Unknown Helmet Cells Not Reportable 07/05/17 Unknown Kim-Blawnox Bodies Not Reportable 07/05/17 Unknown [place] Rings Not Reportable 07/05/17 Unknown Bianca Cells Not Reportable 07/05/17 Unknown Bite Cells Not Reportable 07/05/17 Unknown Crenated Cell Not Reportable 07/05/17 Unknown Elliptocytes Not Reportable 07/05/17 Unknown Acanthocytes (Spur) Not Reportable 07/05/17 Unknown Rouleaux Not Reportable 07/05/17 Unknown Hemoglobin C Crystals Not Reportable 07/05/17 Unknown Schistocytes Not Reportable 07/05/17 Unknown Malaria parasites Not Reportable 07/05/17 Unknown Morales Bodies Not Reportable 07/05/17 Unknown Hem Pathologist Commnt No 07/05/17 Unknown PT 12.9 Sec. (12.2-14.9) 07/06/17 08:30 INR 0.93 (0.87-1.13) 07/06/17 08:30 Heparin Anti-Xa, Unfract Negative (Negative) 07/10/17 10:07 POC ABG pH 7.511 (7.35-7.45) H 07/16/17 12:46 POC ABG pCO2 35.2 (35-45) 07/16/17 12:46 POC ABG pO2 155 (80-105) H 07/16/17 12:46 POC ABG HCO3 28.2 07/16/17 12:46 POC ABG Total CO2 29 07/16/17 12:46 POC ABG O2 Sat 100 07/16/17 12:46 POC ABG Base Excess 5 07/16/17 12:46 FiO2 28 % 07/16/17 12:46 Sodium 138 mmol/L (137-145) 07/18/17 03:54 Potassium 4.7 mmol/L (3.6-5.0) D 07/18/17 03:54 Chloride 99.2 mmol/L (98-107) 07/18/17 03:54 Carbon Dioxide 24 mmol/L (22-30) 07/18/17 03:54 Anion Gap 20 mmol/L 07/18/17 03:54 BUN 43 mg/dL (9-20) H 07/18/17 03:54 Creatinine 2.6 mg/dL (0.8-1.5) H 07/18/17 03:54 Estimated GFR 29 ml/min 07/18/17 03:54 BUN/Creatinine Ratio 17 % 07/18/17 03:54 Glucose 219 mg/dL (75-100) H 07/18/17 03:54 POC Glucose 263 (70-105) H 07/18/17 05:37 Osmolality 357 Mosm/kg 07/02/17 15:35 Lactic Acid 2.30 mmol/L (0.7-2.0) H* 07/05/17 Unknown Calcium 7.9 mg/dL (8.4-10.2) L 07/18/17 03:54 Ionized Calcium 4.6 mg/dL (4.8-5.6) L 07/04/17 14:10 Phosphorus 1.90 mg/dL (2.5-4.5) L 07/15/17 12:52 Magnesium 1.80 mg/dL (1.7-2.3) 07/04/17 14:10 Total Bilirubin < 0.20 mg/dL (0.1-1.2) 07/15/17 12:52 AST 50 units/L (5-40) H 07/15/17 12:52 ALT 14 units/L (7-56) 07/15/17 12:52 Alkaline Phosphatase 152 units/L (35-129) H 07/15/17 12:52 Lactate Dehydrogenase 880 units/L (91-180) H 07/06/17 08:30 Total Creatine Kinase 58 units/L (55-170) 07/05/17 12:40 CK-MB (CK-2) 1.8 ng/mL (0.0-4.0) 07/05/17 12:40 CK-MB (CK-2) Rel Index 3.1 (0-4) 07/05/17 12:40 Troponin T 0.277 ng/mL (0.00-0.029) H* 07/05/17 12:40 C-Reactive Protein 9.90 mg/dL (0.00-1.30) H 07/05/17 Unknown Total Protein 4.7 g/dL (6.3-8.2) L 07/15/17 12:52 Albumin 1.6 g/dL (3.9-5) L 07/15/17 12:52 Albumin/Globulin Ratio 0.5 % 07/15/17 12:52 Triglycerides 83 mg/dL (2-149) 07/04/17 14:10 Cholesterol 83 mg/dL (50-199) 07/04/17 14:10 LDL Cholesterol Direct 22 mg/dL (50-130) L 07/04/17 14:10 HDL Cholesterol 45 mg/dL (40-59) 07/04/17 14:10 Cholesterol/HDL Ratio 1.84 % 07/04/17 14:10 TSH 3.200 mlU/mL (0.270-4.200) 07/02/17 Unknown PTH Intact 159.8 pg/mL (15-65) H 07/15/17 12:52 Urine Color Yellow (Yellow) 07/02/17 17:25 Urine Turbidity Clear (Clear) 07/02/17 17:25 Urine pH 5.0 (5.0-7.0) 07/02/17 17:25 Ur Specific [place] 1.018 (1.003-1.030) 07/02/17 17:25 Urine Protein 100 mg/dl mg/dL (Negative) 07/02/17 17:25 Urine Glucose (UA) >=500 mg/dL (Negative) 07/02/17 17:25 Urine Ketones Neg mg/dL (Negative) 07/02/17 17:25 Urine Blood Sm (Negative) 07/02/17 17:25 Urine Nitrite Neg (Negative) 07/02/17 17:25 Urine Bilirubin Neg (Negative) 07/02/17 17:25 Urine Urobilinogen < 2.0 mg/dL (<2.0) 07/02/17 17:25 Ur Leukocyte Esterase Neg (Negative) 07/02/17 17:25 Urine WBC (Auto) 1.0 /HPF (0.0-6.0) 07/02/17 17:25 Urine RBC (Auto) 2.0 /HPF (0.0-6.0) 07/02/17 17:25 U Epithel Cells (Auto) 1.0 /HPF (0-13.0) 07/02/17 17:25 Fluid Type Pleural 07/06/17 16:53 Fluid Color Yellow 07/06/17 16:53 Fluid Appearance Clear 07/06/17 16:53 Fluid WBC 9 /mm3 07/06/17 16:53 Fluid RBC 6 /mm3 07/06/17 16:53 Fluid Seg Neutrophils 51.2 % 07/06/17 16:53 Fluid Lymphocytes 43.9 % 07/06/17 16:53 Fluid Reactive Lymphs 0 % 07/06/17 16:53 Fluid Monocytes 4.9 % 07/06/17 16:53 Fluid Eosinophils 0 % 07/06/17 16:53 Fluid Basophils 0 % 07/06/17 16:53 Fluid Total Protein < 3.0 (15.0-45.0) L 07/06/17 Unknown Fluid LDH 132 07/06/17 Unknown Fluid Comment 07/06/17 16:53 Salicylates < 0.3 mg/dL (2.8-20.0) L 07/02/17 Unknown Urine Opiates Screen Presumptive negative 07/02/17 17:25 Urine Methadone Screen Presumptive negative 07/02/17 17:25 Acetaminophen < 15.0 ug/mL (10.0-30.0) 07/02/17 Unknown Ur Barbiturates Screen Presumptive negative 07/02/17 17:25 Ur Phencyclidine Scrn Presumptive negative 07/02/17 17:25 Ur Amphetamines Screen Presumptive negative 07/02/17 17:25 U Benzodiazepines Scrn Presumptive negative 07/02/17 17:25 Urine Cocaine Screen Presumptive negative 07/02/17 17:25 U Marijuana (THC) Screen Presumptive negative 07/02/17 17:25 Drugs of Abuse Note Disclamer 07/02/17 17:25 Plasma/Serum Alcohol < 0.01 gm% (0-0.07) 07/02/17 Unknown Heparin-induced Plt Ab Negative (Negative) 07/10/17 10:07 UF Heparin High Dose 0 % Release 07/10/17 10:07 TREVOR UFH Low Dose 0.1 0 % Release 07/10/17 10:07 TREVOR UFH Low Dose 0.5 0 % Release 07/10/17 10:07 Blood Type O POSITIVE 07/15/17 14:49 Antibody Screen Positive 07/15/17 14:49 Prewarmed Antibody Srcn Negative 07/15/17 14:49 Antibody Identification Anti-M 07/15/17 14:49 Crossmatch See Detail 07/15/17 14:49 Crossmatch Prewarmed See Detail 07/15/17 14:49
[2017-07-18 10:15] LABS: INR 0.94 (0.87-1.13)
[2017-07-18] MEDS: THERAGRAN-M Tab PO SCH (10:25)
[2017-07-18] MEDS: HEPARIN SUB-Q SCH ×2 (10:25→21:57)
[2017-07-18] MEDS: ROCALTROL PO SCH (10:25)
[2017-07-18] MEDS: PEPCID PO SCH (10:25)
[2017-07-18] MEDS: ASPIRIN PO SCH (10:25)
[2017-07-18] MEDS: FOLVITE PO SCH (10:25)
[2017-07-18] MEDS ORDERED: PROCRIT IV PRN (10:34)
[2017-07-18] MEDS: COREG PO SCH ×2 (11:00→21:57)
--- NOTE | 2017-07-18 11:18 | Progress Note ---
Assessment and Plan Assessment: S/p cardiopulmonary arrest - PEA in ED; intubated; currently in SR on tele with no arrhythmias noted on tele since ICU admission NSTEMI type II - flat; repeat EKG with no acute ischemic changes. AMS - ? anoxic brain injury; head CT with NAF DKA Seizure d/o HTN DM / Hyperosmolar non ketotic state Lactic acidosis / leukocytosis / ? sepsis Hyponatremia - improved Anemia Thrombocytopenia - improving Plan: Cont present cardiac regimen. Cont supportive management. For trach/PEG on . Plan for ischemic evaluation once medically stabilized. We will see on as needed basis. The patient has been seen in conjunction with Dr. Bharath Xiong who agrees with the assessment and plan of care. Subjective Date of service: 07/18/17 Principal diagnosis: Acute Hypoxemic Resp Failure; S/P Cardiac Arrest; Hyperosmolar Non-ketotic Interval history: pt remains intubated, eyes open, no purposeful responses noted. Objective Last Vital Signs Temp 97.3 F L 07/18/17 10:35 Pulse 85 07/18/17 11:16 Resp 12 07/18/17 10:35 BP 115/62 07/18/17 11:16 Pulse Ox 97 07/18/17 10:35 - Physical Examination General: Other (intubated) HEENT: Positive: PERRL Neck: Positive: neck supple Cardiac: Positive: Reg Rate and Rhythm, S1/S2 Lungs: Positive: Decreased Breath Sounds, Ventilated Respirations Neuro: Positive: Other (intubated) Abdomen: Positive: Soft, Active Bowel Sounds Skin: Positive: Clear. Negative: Rash, Wound Musculoskeletal: No Fluid Collection, No Pain, Normal Range of Motion Extremities: Absent: edema - Labs and Meds Coagulation 07/18/17 Range/Units 09:04 PT 13.1 (12.2-14.9) Sec. INR 0.94 (0.87-1.13) CBC 07/17/17 07/18/17 Range/Units 17:35 03:54 WBC 14.9 H (4.5-11.0) K/mm3 RBC 2.78 L (3.65-5.03) M/mm3 Hgb 8.9 L 8.9 L (11.8-15.2) gm/dl Hct 26.7 L 26.2 L (35.5-45.6) % Plt Count 285 (140-440) K/mm3 Lymph # Senior Windows Systems Administrator Esmeralda # Senior Windows Systems Administrator Eos # Senior Windows Systems Administrator Baso # Senior Windows Systems Administrator Comprehensive Metabolic Panel 07/18/17 Range/Units 03:54 Sodium 138 (137-145) mmol/L Potassium 4.7 D (3.6-5.0) mmol/L Chloride 99.2 (98-107) mmol/L Carbon Dioxide 24 (22-30) mmol/L BUN 43 H (9-20) mg/dL Creatinine 2.6 H (0.8-1.5) mg/dL Glucose 219 H (75-100) mg/dL Calcium 7.9 L (8.4-10.2) mg/dL - Imaging and Cardiology EKG: report reviewed, image reviewed Echo: report reviewed (06/27/2017 showed EF 50-55%, mild LVH, impaired relaxation , RA mildly dilated, mild MR, mild pulm HTN with RVSP 45mmHg, moderate pleural fluid) - EKG Sinus rhythms and dysrhythmias: sinus rhythm AV and intraventricular conduction: right bundle branch block - Allied health notes Allied health notes reviewed: nursing
--- NOTE | 2017-07-18 11:29 | Progress Note ---
Assessment and Plan Impression * End-stage renal disease on maintenance hemodialysis * Status post cardiac arrest * Anemia * Respiratory failure * Encephalopathy * Hyperosmolar nonketotic state Recommendations * Continue hemodialysis on Mondays, Wednesdays and Fridays * Continue Epogen with dialysis * packed RBC transfusion as needed * Adjust diet and meds for ESRD state * Avoid nephrotoxins * Overall prognosis appears to be poor Subjective Date of service: 07/18/17 Principal diagnosis: Acute Hypoxemic Resp Failure; S/P Cardiac Arrest; Hyperosmolar Non-ketotic Interval history: Patient is currently undergoing hemodialysis. He remains on the ventilator. On 28% FiO2. Unresponsive Objective - Vital Signs Vital signs: Vital Signs - 12hr 07/17/17 07/18/17 07/18/17 23:56 00:00 01:00 Temperature 97.9 F Pulse Rate 80 95 H 90 Pulse Rate [ From Monitor] Respiratory 14 13 Rate Blood Pressure 136/78 128/73 122/77 O2 Sat by Pulse 100 100 100 Oximetry 07/18/17 07/18/17 07/18/17 02:00 03:01 04:00 Temperature 98.5 F Pulse Rate 87 91 H 98 H Pulse Rate [ From Monitor] Respiratory 12 11 L 12 Rate Blood Pressure 122/62 126/69 139/74 O2 Sat by Pulse 100 100 100 Oximetry 07/18/17 07/18/17 07/18/17 04:28 05:00 06:01 Temperature Pulse Rate 86 87 94 H Pulse Rate [ From Monitor] Respiratory 12 11 L Rate Blood Pressure 139/74 127/75 127/75 O2 Sat by Pulse 100 100 100 Oximetry 07/18/17 07/18/17 07/18/17 07:10 08:00 10:35 Temperature 97.3 F L 97.3 F L Pulse Rate 84 85 Pulse Rate [ 97 H From Monitor] Respiratory 14 12 12 Rate Blood Pressure 133/72 132/75 O2 Sat by Pulse 98 97 Oximetry 07/18/17 07/18/17 07/18/17 10:45 11:00 11:16 Temperature Pulse Rate 93 H 87 85 Pulse Rate [ From Monitor] Respiratory Rate Blood Pressure 117/67 126/67 115/62 O2 Sat by Pulse Oximetry - General Appearance General appearance: chronically ill, intubated, frail EENT: PERRL, mucous membranes moist Neck: no JVD, no thyromegaly, other (right IJ PermCath in place) Respiratory: Present: Clear to Ascultation Cardiology: regular, normal heart rate, S1S2, no murmurs Gastrointestinal: normal, normoactive bowel sounds Integumentary: no rash, other (1+ edema in his upper extremities) - Lab 07/18/17 03:54 07/18/17 03:54 Most recent lab results Calcium 7.9 mg/dL (8.4-10.2) L 07/18/17 03:54 Phosphorus 1.90 mg/dL (2.5-4.5) L 07/15/17 12:52 Magnesium 1.80 mg/dL (1.7-2.3) 07/04/17 14:10
[2017-07-18] MEDS ORDERED: NACL 0.9% 1000 ML 2,000 ML ONE (12:45)
[2017-07-18] MEDS: HEPARIN IV PRN (12:48)
--- NOTE | 2017-07-18 13:37 | Progress Note ---
Assessment and Plan - Patient Problems (1) Respiratory failure Current Visit: Yes Status: Acute Qualifiers: Chronicity: acute Respiratory failure complication: hypoxia and hypercapnia Qualified Code(s): J96.01 - Acute respiratory failure with hypoxia ; J96.02 - Acute respiratory failure with hypercapnia; J96.02 - Acute respiratory failure with hypercapnia; J96.02 - Acute respiratory failure with hypercapnia Plan to address problem: Trach and PEG scheduled for tomorrow consent in the chart Subjective Date of service: 07/18/17 Patient Reports: Positive: other (no changes; remains on vent) Objective Vital Signs - 12hr 07/18/17 07/18/17 07/18/17 02:00 03:01 04:00 Temperature 98.5 F Pulse Rate 87 91 H 98 H Pulse Rate [ From Monitor] Respiratory 12 11 L 12 Rate Blood Pressure 122/62 126/69 139/74 O2 Sat by Pulse 100 100 100 Oximetry 07/18/17 07/18/17 07/18/17 04:28 05:00 06:01 Temperature Pulse Rate 86 87 94 H Pulse Rate [ From Monitor] Respiratory 12 11 L Rate Blood Pressure 139/74 127/75 127/75 O2 Sat by Pulse 100 100 100 Oximetry 07/18/17 07/18/17 07/18/17 06:31 07:01 07:10 Temperature Pulse Rate 92 H 92 H 84 Pulse Rate [ From Monitor] Respiratory 14 11 L 14 Rate Blood Pressure 114/81 116/80 133/72 O2 Sat by Pulse 100 100 98 Oximetry 07/18/17 07/18/17 07/18/17 07:31 08:00 08:01 Temperature 97.3 F L Pulse Rate 98 H 97 H Pulse Rate [ 97 H From Monitor] Respiratory 13 12 13 Rate Blood Pressure 116/80 161/89 O2 Sat by Pulse 100 100 Oximetry 07/18/17 07/18/17 07/18/17 08:31 09:00 09:31 Temperature Pulse Rate 99 H 100 H 86 Pulse Rate [ From Monitor] Respiratory 14 13 12 Rate Blood Pressure 161/89 157/83 161/89 O2 Sat by Pulse 100 100 Oximetry 07/18/17 07/18/17 07/18/17 10:00 10:30 10:35 Temperature 97.3 F L Pulse Rate 86 87 85 Pulse Rate [ From Monitor] Respiratory 12 14 12 Rate Blood Pressure 129/68 132/75 132/75 O2 Sat by Pulse 97 Oximetry 07/18/17 07/18/17 07/18/17 10:45 11:00 11:16 Temperature Pulse Rate 93 H 88 85 Pulse Rate [ From Monitor] Respiratory 10 L Rate Blood Pressure 117/67 126/67 115/62 O2 Sat by Pulse Oximetry 07/18/17 07/18/17 07/18/17 11:30 11:31 11:47 Temperature Pulse Rate 86 88 85 Pulse Rate [ From Monitor] Respiratory 12 Rate Blood Pressure 104/56 104/56 106/58 O2 Sat by Pulse Oximetry 07/18/17 07/18/17 07/18/17 12:02 12:15 12:30 Temperature Pulse Rate 87 87 96 H Pulse Rate [ From Monitor] Respiratory Rate Blood Pressure 102/54 114/66 105/60 O2 Sat by Pulse Oximetry 07/18/17 07/18/17 07/18/17 12:45 13:03 13:17 Temperature Pulse Rate 93 H 91 H 96 H Pulse Rate [ From Monitor] Respiratory Rate Blood Pressure 95/56 102/57 111/63 O2 Sat by Pulse Oximetry - General physical appearance no distress, other (unresponsive) - Neck trachea midline - Abdomen soft, not distended - Labs 07/18/17 03:54 07/18/17 03:54 Diabetes panel 07/18/17 Range/Units 03:54 Sodium 138 (137-145) mmol/L Potassium 4.7 D (3.6-5.0) mmol/L Chloride 99.2 (98-107) mmol/L Carbon Dioxide 24 (22-30) mmol/L BUN 43 H (9-20) mg/dL Creatinine 2.6 H (0.8-1.5) mg/dL Glucose 219 H (75-100) mg/dL Calcium 7.9 L (8.4-10.2) mg/dL Calcium panel 07/18/17 Range/Units 03:54 Calcium 7.9 L (8.4-10.2) mg/dL Pituitary panel 07/18/17 Range/Units 03:54 Sodium 138 (137-145) mmol/L Potassium 4.7 D (3.6-5.0) mmol/L Chloride 99.2 (98-107) mmol/L Carbon Dioxide 24 (22-30) mmol/L BUN 43 H (9-20) mg/dL Creatinine 2.6 H (0.8-1.5) mg/dL Glucose 219 H (75-100) mg/dL Calcium 7.9 L (8.4-10.2) mg/dL Adrenal panel 07/18/17 Range/Units 03:54 Sodium 138 (137-145) mmol/L Potassium 4.7 D (3.6-5.0) mmol/L Chloride 99.2 (98-107) mmol/L Carbon Dioxide 24 (22-30) mmol/L BUN 43 H (9-20) mg/dL Creatinine 2.6 H (0.8-1.5) mg/dL Glucose 219 H (75-100) mg/dL Calcium 7.9 L (8.4-10.2) mg/dL
[2017-07-18] MEDS ORDERED: cefTRIAXone 2 GM in NACL 0.9% 20 ML IV SCH (14:15)
[2017-07-18] MEDS ORDERED: ceFAZolin 2 GM in NACL 0.9% 20 ML IV SCH (14:15)
[2017-07-18] MEDS: LEVEMIR SUB-Q SCH (14:22)
[2017-07-18] MEDS: NORVASC PO SCH (14:25)
--- NOTE | 2017-07-18 15:56 | Anesthesia Consultation ---
Anesthesia Consult and Med Hx Date of service: 07/19/17 - Pulmonary Exam CTA: Yes - Cardiac Exam Cardiac Exam: RRR - Pre-Operative Health Status ASA Pre-Surgery Classification: ASA4 Proposed Anesthetic Plan: General, MAC - Pre-Anesthesia Comment Pre-Anesthesia Comments: Unable to perform airway exam - Pulmonary Hx Respiratory Symptoms: Yes (Respiratory Failure) - Cardiovascular System Hx Hypertension: Yes Hx Cardia Arrhythmia: Yes (Cardiac Arrest in ER, ROSC) - Central Nervous System Hx Seizures: Yes (in jail) - Endocrine Hx Renal Disease: Yes Hx End Stage Renal Disease: Yes (MWF ) Hx Non-Insulin Dependent Diabetes: Yes - Additional Comments Anesthesia Medical History Comments: Malnutrition, Hypotensive, Came in ER with glucose >1000, DKA
[2017-07-19] MEDS: NOVOLOG SUB-Q SCH ×4 (06:01→18:07)
--- NOTE | 2017-07-19 09:56 | Progress Note ---
Assessment and Plan Impression * End-stage renal disease on maintenance hemodialysis * Status post cardiac arrest * Anemia * Respiratory failure * Encephalopathy * Hyperosmolar nonketotic state Recommendations * Continue hemodialysis on Mondays, Wednesdays and Fridays * Continue Epogen with dialysis * packed RBC transfusion as needed * Adjust diet and meds for ESRD state * Avoid nephrotoxins * Overall prognosis appears to be poor * Patient is scheduled for trach and PEG today Subjective Date of service: 07/19/17 Principal diagnosis: Acute Hypoxemic Resp Failure; S/P Cardiac Arrest; Hyperosmolar Non-ketotic Interval history: Patient remains on the ventilator. On 28% FiO2. Unresponsive. Scheduled for trach and PEG today Objective - Vital Signs Vital signs: Vital Signs - 12hr 07/18/17 07/18/17 07/18/17 21:57 22:00 23:00 Temperature Pulse Rate 107 H 106 H 96 H Respiratory 15 16 Rate Blood Pressure 147/76 157/82 149/62 O2 Sat by Pulse 99 100 Oximetry 07/18/17 07/18/17 07/19/17 23:44 23:59 00:00 Temperature 97.7 F Pulse Rate 96 H 97 H Respiratory 14 15 Rate Blood Pressure 149/62 142/68 O2 Sat by Pulse 100 100 Oximetry 07/19/17 07/19/17 07/19/17 00:03 00:05 01:00 Temperature Pulse Rate 96 H 97 H 96 H Respiratory 12 Rate Blood Pressure 142/68 146/64 O2 Sat by Pulse 100 100 Oximetry 07/19/17 07/19/17 07/19/17 02:00 03:01 03:35 Temperature 98.9 F Pulse Rate 100 H 94 H Respiratory 11 L 13 Rate Blood Pressure 131/65 145/68 O2 Sat by Pulse 100 100 Oximetry 07/19/17 07/19/17 07/19/17 04:00 04:16 05:00 Temperature Pulse Rate 95 H 98 H 96 H Respiratory 12 12 Rate Blood Pressure 140/68 140/68 147/68 O2 Sat by Pulse 100 100 100 Oximetry 07/19/17 07/19/17 07/19/17 07:01 07:39 07:43 Temperature Pulse Rate 95 H 97 H 98 H Respiratory 13 6 L Rate Blood Pressure 154/69 154/69 154/69 O2 Sat by Pulse 100 100 100 Oximetry 07/19/17 07/19/17 08:00 09:01 Temperature 97 F L Pulse Rate 97 H 89 Respiratory 13 11 L Rate Blood Pressure 156/79 156/79 O2 Sat by Pulse 100 100 Oximetry - General Appearance General appearance: chronically ill, intubated, frail EENT: PERRL, mucous membranes moist Neck: no JVD, no thyromegaly, no carotid bruit, supple, other (right IJ PermCath in place) Respiratory: Present: Clear to Ascultation Cardiology: regular, normal heart rate, S1S2, no murmurs Gastrointestinal: normal, normoactive bowel sounds Integumentary: other (no edema) - Lab 07/18/17 03:54 07/18/17 03:54 Most recent lab results Calcium 7.9 mg/dL (8.4-10.2) L 07/18/17 03:54 Phosphorus 1.90 mg/dL (2.5-4.5) L 07/15/17 12:52 Magnesium 1.80 mg/dL (1.7-2.3) 07/04/17 14:10
[2017-07-19] MEDS: NORVASC PO SCH (09:58)
[2017-07-19] MEDS: PEPCID PO SCH (09:58)
[2017-07-19] MEDS: COREG PO SCH (09:58)
[2017-07-19] MEDS: HEPARIN SUB-Q SCH (10:05)
[2017-07-19] MEDS: ASPIRIN PO SCH (10:05)
[2017-07-19] MEDS: LEVEMIR SUB-Q SCH (10:05)
[2017-07-19] MEDS: FOLVITE PO SCH (10:05)
[2017-07-19] MEDS: THERAGRAN-M Tab PO SCH (10:06)
[2017-07-19] MEDS: ROCALTROL PO SCH (10:06)
[2017-07-19] MEDS ORDERED: NACL 0.9% 1000 ML 1,000 ML ONE ×2 (11:10→14:00)
--- NOTE | 2017-07-19 12:59 | Progress Note ---
Assessment and Plan Assessment and plan: 76 YO Male Skilled Nursing Resident with HTN, DM, ESRD on HD(M,W,F), Severe Malnutrition, presents to ED for evaluation. Pt unable to provide history. Pt found to have new onset seizure at [facility] that was witnessed by SNF staff. EMS was notified and upon arrival patient was found to by stuporous. Pt transported to [facility] for evaluation. Pt seen and evaluated in ED and found to be in respiratory distress. Pt subsequently found to have asystolic arrest. Pt treated IAW ACLS protocol with return of perfusing cardiac rhythm. Pt found to have Acute respiratory failure and was intubated and placed on vent support. Pt also found to be hypotensive after cardiac arrest and placed on pressor support. Serum glucose found to be above 1000, and patient was in DKA. DKA protocol initiated. Pt admitted to ICU. Anoxic brain injury Acute Respiratory Failure, hypoxic Patient is intubated and on mechanical ventilation, off sedation Status post cardiac arrest Seizure disorder Sepsis with hypotension History of diarrhea DKA with diabetic coma - Patient was treated according to DKA protocol now resolved and on long-acting insulin ESRD on HD - - Finished antibiotics DVT prophylaxis - Heparin Disposition - Patient will have trach on Sunday - Continue ICU care Severe Anemia - S/p blood transfusion - Will monitor H&H closely Awaiting Trache and PEG on The high probability of a clinically significant, sudden or life threatening deterioration of the [CV, neurology, renal] system(s) required my full and direct attention, intervention and personal management. The aggregate critical care time was [32] minutes. This time is in addition to time spent performing reported procedures but includes the following: [x] Data Review and interpretation [x] Patient assessment and monitoring of vital signs [x] Documentation [x] Medication orders and management History Interval history: Patient was seen and evaluated this morning, patient in non communicative. Patient is off sedation. no vomiting, no seizures Hospitalist Physical - Physical exam Narrative exam: - Physical exam Narrative exam: Patient is intubated and on mechanical ventilation. The patient appeared well nourished and normally developed. Vital signs as documented. Head exam is unremarkable. No scleral icterus . Neck is without jugular venous distension, thyromegaly, or carotid bruits. Lungs are clear to auscultation. Cardiac exam reveals regular rate and Rhythm. First and second heart sounds normal. No murmurs, rubs or gallops. Abdominal exam reveals normal bowel sounds, no masses, no organomegaly and no aortic enlargement. Extremities are nonedematous and both femoral and pedal pulses are normal. 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 He is off sedation. - Constitutional Vitals: Temp Pulse Resp BP Pulse Ox 97 F L 85 12 132/72 100 07/19/17 08:00 07/19/17 12:00 07/19/17 12:00 07/19/17 12:00 07/19/17 12:00 General appearance: Present: mild distress, other (intubated, unresponsive) Results - Labs CBC & Chem 7: 07/18/17 03:54 07/18/17 03:54 Labs: Laboratory Last Values WBC 14.9 K/mm3 (4.5-11.0) H 07/18/17 03:54 RBC 2.78 M/mm3 (3.65-5.03) L 07/18/17 03:54 Hgb 8.9 gm/dl (11.8-15.2) L 07/18/17 03:54 Hct 26.2 % (35.5-45.6) L 07/18/17 03:54 MCV 94 fl (84-94) 07/18/17 03:54 MCH 32 pg (28-32) 07/18/17 03:54 MCHC 34 % (32-34) 07/18/17 03:54 RDW 15.9 % (13.2-15.2) H 07/18/17 03:54 Plt Count 285 K/mm3 (140-440) 07/18/17 03:54 Lymph % (Auto) License Distributor 07/18/17 03:54 Holt % (Auto) License Distributor 07/18/17 03:54 Eos % (Auto) License Distributor 07/18/17 03:54 Baso % (Auto) License Distributor 07/18/17 03:54 Lymph # License Distributor 07/18/17 03:54 Holt # License Distributor 07/18/17 03:54 Eos # License Distributor 07/18/17 03:54 Baso # License Distributor 07/18/17 03:54 Add Manual Diff Complete 07/05/17 Unknown Total Counted 100 07/05/17 Unknown Seg Neutrophils % License Distributor 07/18/17 03:54 Seg Neuts % (Manual) 89.0 % (40.0-70.0) H 07/05/17 Unknown Band Neutrophils % 1.0 % 07/05/17 Unknown Lymphocytes % (Manual) 7.0 % (13.4-35.0) L 07/05/17 Unknown Reactive Lymphs % (Man) 0 % 07/05/17 Unknown Monocytes % (Manual) 3.0 % (0.0-7.3) 07/05/17 Unknown Eosinophils % (Manual) 0 % (0.0-4.3) 07/05/17 Unknown Basophils % (Manual) 0 % (0.0-1.8) 07/05/17 Unknown Metamyelocytes % 0 % 07/05/17 Unknown Myelocytes % 0 % 07/05/17 Unknown Promyelocytes % 0 % 07/05/17 Unknown Blast Cells % 0 % 07/05/17 Unknown Nucleated RBC % Not Reportable 07/05/17 Unknown Seg Neutrophils # License Distributor 07/18/17 03:54 Seg Neutrophils # Man 19.8 K/mm3 (1.8-7.7) H 07/05/17 Unknown Band Neutrophils # 0.2 K/mm3 07/05/17 Unknown Lymphocytes # (Manual) 1.6 K/mm3 (1.2-5.4) 07/05/17 Unknown Abs React Lymphs (Man) 0.0 K/mm3 07/05/17 Unknown Monocytes # (Manual) 0.7 K/mm3 (0.0-0.8) 07/05/17 Unknown Eosinophils # (Manual) 0.0 K/mm3 (0.0-0.4) 07/05/17 Unknown Basophils # (Manual) 0.0 K/mm3 (0.0-0.1) 07/05/17 Unknown Metamyelocytes # 0.0 K/mm3 07/05/17 Unknown Myelocytes # 0.0 K/mm3 07/05/17 Unknown Promyelocytes # 0.0 K/mm3 07/05/17 Unknown Blast Cells # 0.0 K/mm3 07/05/17 Unknown WBC Morphology Not Reportable 07/05/17 Unknown Hypersegmented Neuts Not Reportable 07/05/17 Unknown Hyposegmented Neuts Not Reportable 07/05/17 Unknown Hypogranular Neuts Not Reportable 07/05/17 Unknown Smudge Cells Not Reportable 07/05/17 Unknown Toxic Granulation Not Reportable 07/05/17 Unknown Toxic Vacuolation Not Reportable 07/05/17 Unknown Dohle Bodies Not Reportable 07/05/17 Unknown Pelger-Huet Anomaly Not Reportable 07/05/17 Unknown [place] Rods Not Reportable 07/05/17 Unknown Platelet Estimate Appears decreased 07/05/17 Unknown Clumped Platelets Not Reportable 07/05/17 Unknown Plt Clumps, EDTA Not Reportable 07/05/17 Unknown Large Platelets Not Reportable 07/05/17 Unknown Giant Platelets Not Reportable 07/05/17 Unknown Platelet Satelliting Not Reportable 07/05/17 Unknown Plt Morphology Comment Not Reportable 07/05/17 Unknown RBC Morphology Not Reportable 07/05/17 Unknown Dimorphic RBCs Not Reportable 07/05/17 Unknown Polychromasia Not Reportable 07/05/17 Unknown Hypochromasia Not Reportable 07/05/17 Unknown Poikilocytosis 1+ 07/05/17 Unknown Anisocytosis 1+ 07/05/17 Unknown Microcytosis Few 07/05/17 Unknown Macrocytosis Not Reportable 07/05/17 Unknown Spherocytes Not Reportable 07/05/17 Unknown Pappenheimer Bodies Not Reportable 07/05/17 Unknown Sickle Cells Not Reportable 07/05/17 Unknown Target Cells Not Reportable 07/05/17 Unknown Tear Drop Cells Not Reportable 07/05/17 Unknown Ovalocytes Not Reportable 07/05/17 Unknown Helmet Cells Not Reportable 07/05/17 Unknown [place] Bodies Not Reportable 07/05/17 Unknown [place] Rings Not Reportable 07/05/17 Unknown [place] Cells Not Reportable 07/05/17 Unknown Bite Cells Not Reportable 07/05/17 Unknown Crenated Cell Not Reportable 07/05/17 Unknown Elliptocytes Not Reportable 07/05/17 Unknown Acanthocytes (Spur) Not Reportable 07/05/17 Unknown Rouleaux Not Reportable 07/05/17 Unknown Hemoglobin C Crystals Not Reportable 07/05/17 Unknown Schistocytes Not Reportable 07/05/17 Unknown Malaria parasites Not Reportable 07/05/17 Unknown Morales Bodies Not Reportable 07/05/17 Unknown Hem Pathologist Commnt No 07/05/17 Unknown PT 13.1 Sec. (12.2-14.9) 07/18/17 09:04 INR 0.94 (0.87-1.13) 07/18/17 09:04 Heparin Anti-Xa, Unfract Negative (Negative) 07/10/17 10:07 POC ABG pH 7.511 (7.35-7.45) H 07/16/17 12:46 POC ABG pCO2 35.2 (35-45) 07/16/17 12:46 POC ABG pO2 155 (80-105) H 07/16/17 12:46 POC ABG HCO3 28.2 07/16/17 12:46 POC ABG Total CO2 29 07/16/17 12:46 POC ABG O2 Sat 100 07/16/17 12:46 POC ABG Base Excess 5 07/16/17 12:46 FiO2 28 % 07/16/17 12:46 Sodium 138 mmol/L (137-145) 07/18/17 03:54 Potassium 4.7 mmol/L (3.6-5.0) D 07/18/17 03:54 Chloride 99.2 mmol/L (98-107) 07/18/17 03:54 Carbon Dioxide 24 mmol/L (22-30) 07/18/17 03:54 Anion Gap 20 mmol/L 07/18/17 03:54 BUN 43 mg/dL (9-20) H 07/18/17 03:54 Creatinine 2.6 mg/dL (0.8-1.5) H 07/18/17 03:54 Estimated GFR 29 ml/min 07/18/17 03:54 BUN/Creatinine Ratio 17 % 07/18/17 03:54 Glucose 219 mg/dL (75-100) H 07/18/17 03:54 POC Glucose 129 (70-105) H 07/19/17 11:32 Osmolality 357 Mosm/kg 07/02/17 15:35 Lactic Acid 2.30 mmol/L (0.7-2.0) H* 07/05/17 Unknown Calcium 7.9 mg/dL (8.4-10.2) L 07/18/17 03:54 Ionized Calcium 4.6 mg/dL (4.8-5.6) L 07/04/17 14:10 Phosphorus 1.90 mg/dL (2.5-4.5) L 07/15/17 12:52 Magnesium 1.80 mg/dL (1.7-2.3) 07/04/17 14:10 Total Bilirubin < 0.20 mg/dL (0.1-1.2) 07/15/17 12:52 AST 50 units/L (5-40) H 07/15/17 12:52 ALT 14 units/L (7-56) 07/15/17 12:52 Alkaline Phosphatase 152 units/L (35-129) H 07/15/17 12:52 Lactate Dehydrogenase 880 units/L (91-180) H 07/06/17 08:30 Total Creatine Kinase 58 units/L (55-170) 07/05/17 12:40 CK-MB (CK-2) 1.8 ng/mL (0.0-4.0) 07/05/17 12:40 CK-MB (CK-2) Rel Index 3.1 (0-4) 07/05/17 12:40 Troponin T 0.277 ng/mL (0.00-0.029) H* 07/05/17 12:40 C-Reactive Protein 9.90 mg/dL (0.00-1.30) H 07/05/17 Unknown Total Protein 4.7 g/dL (6.3-8.2) L 07/15/17 12:52 Albumin 1.6 g/dL (3.9-5) L 07/15/17 12:52 Albumin/Globulin Ratio 0.5 % 07/15/17 12:52 Triglycerides 83 mg/dL (2-149) 07/04/17 14:10 Cholesterol 83 mg/dL (50-199) 07/04/17 14:10 LDL Cholesterol Direct 22 mg/dL (50-130) L 07/04/17 14:10 HDL Cholesterol 45 mg/dL (40-59) 07/04/17 14:10 Cholesterol/HDL Ratio 1.84 % 07/04/17 14:10 TSH 3.200 mlU/mL (0.270-4.200) 07/02/17 Unknown PTH Intact 159.8 pg/mL (15-65) H 07/15/17 12:52 Urine Color Yellow (Yellow) 07/02/17 17:25 Urine Turbidity Clear (Clear) 07/02/17 17:25 Urine pH 5.0 (5.0-7.0) 07/02/17 17:25 Ur Specific [place] 1.018 (1.003-1.030) 07/02/17 17:25 Urine Protein 100 mg/dl mg/dL (Negative) 07/02/17 17:25 Urine Glucose (UA) >=500 mg/dL (Negative) 07/02/17 17:25 Urine Ketones Neg mg/dL (Negative) 07/02/17 17:25 Urine Blood Sm (Negative) 07/02/17 17:25 Urine Nitrite Neg (Negative) 07/02/17 17:25 Urine Bilirubin Neg (Negative) 07/02/17 17:25 Urine Urobilinogen < 2.0 mg/dL (<2.0) 07/02/17 17:25 Ur Leukocyte Esterase Neg (Negative) 07/02/17 17:25 Urine WBC (Auto) 1.0 /HPF (0.0-6.0) 07/02/17 17:25 Urine RBC (Auto) 2.0 /HPF (0.0-6.0) 07/02/17 17:25 U Epithel Cells (Auto) 1.0 /HPF (0-13.0) 07/02/17 17:25 Fluid Type Pleural 07/06/17 16:53 Fluid Color Yellow 07/06/17 16:53 Fluid Appearance Clear 07/06/17 16:53 Fluid WBC 9 /mm3 07/06/17 16:53 Fluid RBC 6 /mm3 07/06/17 16:53 Fluid Seg Neutrophils 51.2 % 07/06/17 16:53 Fluid Lymphocytes 43.9 % 07/06/17 16:53 Fluid Reactive Lymphs 0 % 07/06/17 16:53 Fluid Monocytes 4.9 % 07/06/17 16:53 Fluid Eosinophils 0 % 07/06/17 16:53 Fluid Basophils 0 % 07/06/17 16:53 Fluid Total Protein < 3.0 (15.0-45.0) L 07/06/17 Unknown Fluid LDH 132 07/06/17 Unknown Fluid Comment 07/06/17 16:53 Salicylates < 0.3 mg/dL (2.8-20.0) L 07/02/17 Unknown Urine Opiates Screen Presumptive negative 07/02/17 17:25 Urine Methadone Screen Presumptive negative 07/02/17 17:25 Acetaminophen < 15.0 ug/mL (10.0-30.0) 07/02/17 Unknown Ur Barbiturates Screen Presumptive negative 07/02/17 17:25 Ur Phencyclidine Scrn Presumptive negative 07/02/17 17:25 Ur Amphetamines Screen Presumptive negative 07/02/17 17:25 U Benzodiazepines Scrn Presumptive negative 07/02/17 17:25 Urine Cocaine Screen Presumptive negative 07/02/17 17:25 U Marijuana (THC) Screen Presumptive negative 07/02/17 17:25 Drugs of Abuse Note Disclamer 07/02/17 17:25 Plasma/Serum Alcohol < 0.01 gm% (0-0.07) 07/02/17 Unknown Heparin-induced Plt Ab Negative (Negative) 07/10/17 10:07 UF Heparin High Dose 0 % Release 07/10/17 10:07 TREVOR UFH Low Dose 0.1 0 % Release 07/10/17 10:07 TREVOR UFH Low Dose 0.5 0 % Release 07/10/17 10:07 Blood Type O POSITIVE 07/15/17 14:49 Antibody Screen Positive 07/15/17 14:49 Prewarmed Antibody Srcn Negative 07/15/17 14:49 Antibody Identification Anti-M 07/15/17 14:49 Crossmatch See Detail 07/15/17 14:49 Crossmatch Prewarmed See Detail 07/15/17 14:49
[2017-07-19] MEDS ORDERED: VERSED ONE (13:08)
[2017-07-19] MEDS ORDERED: DIPRIVAN 10 MG/ML IV ONE ×2 (13:08)
[2017-07-19] MEDS ORDERED: SUBLIMAZE ONE (13:08)
[2017-07-19] MEDS ORDERED: ceFAZolin 2 GM in NACL 0.9% 100 ML IV ONE (13:32)
[2017-07-19] MEDS ORDERED: ZEMURON IV ONE (14:10)
--- NOTE | 2017-07-19 14:15 | Progress Note ---
Subjective Date of service: 07/19/17 Principal diagnosis: Acute Hypoxemic Resp Failure; S/P Cardiac Arrest; Hyperosmolar Non-ketotic Interval history: Patient is seen today for: Acute Hypoxemic Resp Failure; S/P Cardiac Arrest; Hyperosmolar Non-ketotic Seen and examined at bedside; 24hour events reviewed; nursing and respiratory care staff consulted; no adverse overnight events reported to me; remains on MVS ; AMS is persistent though he is tolerating weaning trials well; No emesis or overt aspiration reported Objective Vital Signs - 12hr 07/19/17 07/19/17 07/19/17 03:01 03:35 04:00 Temperature 98.9 F Pulse Rate 94 H 95 H Respiratory 13 12 Rate Blood Pressure 145/68 140/68 O2 Sat by Pulse 100 100 Oximetry 07/19/17 07/19/17 07/19/17 04:16 05:00 07:01 Temperature Pulse Rate 98 H 96 H 95 H Respiratory 12 13 Rate Blood Pressure 140/68 147/68 154/69 O2 Sat by Pulse 100 100 100 Oximetry 07/19/17 07/19/17 07/19/17 07:39 07:43 08:00 Temperature 97 F L Pulse Rate 97 H 98 H 97 H Respiratory 6 L 13 Rate Blood Pressure 154/69 154/69 156/79 O2 Sat by Pulse 100 100 100 Oximetry 07/19/17 07/19/17 07/19/17 09:01 09:58 10:01 Temperature Pulse Rate 89 81 83 Respiratory 11 L 12 Rate Blood Pressure 156/79 148/80 115/63 O2 Sat by Pulse 100 100 Oximetry 07/19/17 07/19/17 07/19/17 11:00 12:00 13:00 Temperature 97.5 F L Pulse Rate 85 100 H 78 Respiratory 10 L 12 12 Rate Blood Pressure 135/75 135/63 135/63 O2 Sat by Pulse 100 100 100 Oximetry 07/19/17 14:01 Temperature Pulse Rate 83 Respiratory 10 L Rate Blood Pressure 135/76 O2 Sat by Pulse 100 Oximetry Constitutional: no acute distress, other (encephalopathic) Eyes: non-icteric ENT: oropharynx moist, other (ETT at 25cm TIKI) Neck: supple, no lymphadenopathy, JVD, other (no thyromegally) Effort: mildly labored Ascultation: Bilateral: diminished breath sounds (bases), rales Percussion: Right: dull (base), Bilateral: not dull Cardiovascular: regular rate and rhythm, other (no rubs / murmurs) Gastrointestinal: normoactive bowel sounds, soft, non-tender, non-distended, other (no HSM) Integumentary: normal Extremities: no cyanosis, no edema, pulses normal, no ischemia or petechiae Neurologic: pupils equal and round, unable to assess, other (no spontaneous limb movements) Psychiatric: other (unable to assess) CBC and BMP: 07/18/17 03:54 07/18/17 03:54 ABG, PT/INR, D-dimer: ABG POC ABG pH 7.511 (7.35-7.45) H 07/16/17 12:46 POC ABG pCO2 35.2 (35-45) 07/16/17 12:46 POC ABG pO2 155 (80-105) H 07/16/17 12:46 POC ABG HCO3 28.2 07/16/17 12:46 POC ABG Total CO2 29 07/16/17 12:46 POC ABG O2 Sat 100 07/16/17 12:46 PT/INR, D-dimer PT 13.1 Sec. (12.2-14.9) 07/18/17 09:04 INR 0.94 (0.87-1.13) 07/18/17 09:04 Abnormal lab findings: Abnormal Labs 07/02/17 07/02/17 07/02/17 15:03 15:12 17:49 WBC 13.5 H RBC 3.47 L Hgb 9.9 L Hct 33.1 L MCV 96 H MCHC 30 L RDW 15.4 H Plt Count 130 L Lymph % (Auto) Nolan % (Auto) Lymph # Nolan # Seg Neutrophils % Seg Neuts % (Manual) 95.0 H Lymphocytes % (Manual) 3.0 L Seg Neutrophils # Seg Neutrophils # Man 12.8 H Lymphocytes # (Manual) 0.4 L POC ABG pH POC ABG pCO2 POC ABG pO2 Sodium Potassium Chloride Carbon Dioxide BUN Creatinine Glucose POC Glucose > 500 H Lactic Acid 7.80 H* Calcium Ionized Calcium Phosphorus AST Alkaline Phosphatase Lactate Dehydrogenase CK-MB (CK-2) Troponin T C-Reactive Protein Total Protein Albumin LDL Cholesterol Direct PTH Intact Fluid Total Protein Salicylates Crossmatch Prewarmed 07/02/17 07/02/17 07/02/17 20:29 21:31 23:38 WBC RBC Hgb Hct MCV MCHC RDW Plt Count Lymph % (Auto) Nolan % (Auto) Lymph # Nolan # Seg Neutrophils % Seg Neuts % (Manual) Lymphocytes % (Manual) Seg Neutrophils # Seg Neutrophils # Man Lymphocytes # (Manual) POC ABG pH POC ABG pCO2 POC ABG pO2 Sodium 129 L 132 L Potassium Chloride 87.2 L 93.7 L Carbon Dioxide 18 L 15 L BUN 51 H 47 H Creatinine 4.3 H 4.1 H Glucose 950 H* 825 H* POC Glucose Lactic Acid 5.70 H* Calcium 7.1 L 6.8 L Ionized Calcium Phosphorus AST Alkaline Phosphatase Lactate Dehydrogenase CK-MB (CK-2) Troponin T C-Reactive Protein Total Protein Albumin LDL Cholesterol Direct PTH Intact Fluid Total Protein Salicylates Crossmatch Prewarmed 07/02/17 07/02/17 07/02/17 23:38 23:44 Unknown WBC RBC Hgb Hct MCV MCHC RDW Plt Count Lymph % (Auto) Nolan % (Auto) Lymph # Nolan # Seg Neutrophils % Seg Neuts % (Manual) Lymphocytes % (Manual) Seg Neutrophils # Seg Neutrophils # Man Lymphocytes # (Manual) POC ABG pH POC ABG pCO2 POC ABG pO2 Sodium 132 L 125 L D Potassium Chloride 94.6 L 85.6 L Carbon Dioxide 17 L 19 L D BUN 51 H 50 H Creatinine 4.1 H 4.4 H D Glucose 772 H* 1113 H* POC Glucose > 500 H Lactic Acid Calcium 6.7 L 7.2 L Ionized Calcium Phosphorus AST Alkaline Phosphatase 139 H Lactate Dehydrogenase CK-MB (CK-2) Troponin T C-Reactive Protein Total Protein 6.1 L Albumin 3.3 L LDL Cholesterol Direct PTH Intact Fluid Total Protein Salicylates Crossmatch Prewarmed 07/02/17 07/02/17 07/03/17 Unknown Unknown 01:00 WBC RBC Hgb Hct MCV MCHC RDW Plt Count Lymph % (Auto) Nolan % (Auto) Lymph # Nolan # Seg Neutrophils % Seg Neuts % (Manual) Lymphocytes % (Manual) Seg Neutrophils # Seg Neutrophils # Man Lymphocytes # (Manual) POC ABG pH POC ABG pCO2 POC ABG pO2 Sodium 134 L Potassium Chloride 96.4 L Carbon Dioxide 19 L BUN 50 H Creatinine 4.0 H Glucose 677 H* POC Glucose Lactic Acid 6.30 H* Calcium 6.6 L Ionized Calcium Phosphorus AST Alkaline Phosphatase Lactate Dehydrogenase CK-MB (CK-2) Troponin T C-Reactive Protein Total Protein Albumin LDL Cholesterol Direct PTH Intact Fluid Total Protein Salicylates < 0.3 L Crossmatch Prewarmed 07/03/17 07/03/17 07/03/17 01:04 02:15 02:15 WBC RBC Hgb Hct MCV MCHC RDW Plt Count Lymph % (Auto) Nolan % (Auto) Lymph # Nolan # Seg Neutrophils % Seg Neuts % (Manual) Lymphocytes % (Manual) Seg Neutrophils # Seg Neutrophils # Man Lymphocytes # (Manual) POC ABG pH POC ABG pCO2 POC ABG pO2 Sodium 134 L Potassium Chloride 97.6 L Carbon Dioxide 19 L BUN 50 H Creatinine 4.2 H Glucose 592 H* POC Glucose > 500 H Lactic Acid 4.30 H* Calcium 6.6 L Ionized Calcium Phosphorus AST Alkaline Phosphatase Lactate Dehydrogenase CK-MB (CK-2) Troponin T C-Reactive Protein Total Protein Albumin LDL Cholesterol Direct PTH Intact Fluid Total Protein Salicylates Crossmatch Prewarmed 07/03/17 07/03/17 07/03/17 02:21 03:25 04:10 WBC RBC Hgb Hct MCV MCHC RDW Plt Count Lymph % (Auto) Nolan % (Auto) Lymph # Nolan # Seg Neutrophils % Seg Neuts % (Manual) Lymphocytes % (Manual) Seg Neutrophils # Seg Neutrophils # Man Lymphocytes # (Manual) POC ABG pH POC ABG pCO2 POC ABG pO2 Sodium Potassium Chloride Carbon Dioxide 19 L BUN 50 H Creatinine 4.0 H Glucose 416 H POC Glucose 482 H > 500 H Lactic Acid Calcium 6.8 L Ionized Calcium Phosphorus AST Alkaline Phosphatase Lactate Dehydrogenase CK-MB (CK-2) Troponin T C-Reactive Protein Total Protein Albumin LDL Cholesterol Direct PTH Intact Fluid Total Protein Salicylates Crossmatch Prewarmed 07/03/17 07/03/17 07/03/17 04:30 04:36 05:33 WBC RBC Hgb Hct MCV MCHC RDW Plt Count Lymph % (Auto) Nolan % (Auto) Lymph # Nolan # Seg Neutrophils % Seg Neuts % (Manual) Lymphocytes % (Manual) Seg Neutrophils # Seg Neutrophils # Man Lymphocytes # (Manual) POC ABG pH 7.311 L POC ABG pCO2 33.5 L POC ABG pO2 73 L Sodium Potassium Chloride Carbon Dioxide BUN Creatinine Glucose POC Glucose 389 H 326 H Lactic Acid Calcium Ionized Calcium Phosphorus AST Alkaline Phosphatase Lactate Dehydrogenase CK-MB (CK-2) Troponin T C-Reactive Protein Total Protein Albumin LDL Cholesterol Direct PTH Intact Fluid Total Protein Salicylates Crossmatch Prewarmed 07/03/17 07/03/17 07/03/17 06:06 07:38 09:58 WBC RBC Hgb Hct MCV MCHC RDW Plt Count Lymph % (Auto) Nolan % (Auto) Lymph # Nolan # Seg Neutrophils % Seg Neuts % (Manual) Lymphocytes % (Manual) Seg Neutrophils # Seg Neutrophils # Man Lymphocytes # (Manual) POC ABG pH POC ABG pCO2 POC ABG pO2 Sodium Potassium Chloride Carbon Dioxide BUN Creatinine Glucose POC Glucose 247 H 118 H 52 L Lactic Acid Calcium Ionized Calcium Phosphorus AST Alkaline Phosphatase Lactate Dehydrogenase CK-MB (CK-2) Troponin T C-Reactive Protein Total Protein Albumin LDL Cholesterol Direct PTH Intact Fluid Total Protein Salicylates Crossmatch Prewarmed 07/03/17 07/03/17 07/03/17 11:00 13:16 15:02 WBC RBC Hgb Hct MCV MCHC RDW Plt Count Lymph % (Auto) Nolan % (Auto) Lymph # Nolan # Seg Neutrophils % Seg Neuts % (Manual) Lymphocytes % (Manual) Seg Neutrophils # Seg Neutrophils # Man Lymphocytes # (Manual) POC ABG pH POC ABG pCO2 POC ABG pO2 Sodium Potassium Chloride Carbon Dioxide BUN Creatinine Glucose POC Glucose 64 L 112 H 158 H Lactic Acid Calcium Ionized Calcium Phosphorus AST Alkaline Phosphatase Lactate Dehydrogenase CK-MB (CK-2) Troponin T C-Reactive Protein Total Protein Albumin LDL Cholesterol Direct PTH Intact Fluid Total Protein Salicylates Crossmatch Prewarmed 07/03/17 07/03/17 07/03/17 18:17 Unknown Unknown WBC RBC Hgb Hct MCV MCHC RDW Plt Count Lymph % (Auto) Nolan % (Auto) Lymph # Nolan # Seg Neutrophils % Seg Neuts % (Manual) Lymphocytes % (Manual) Seg Neutrophils # Seg Neutrophils # Man Lymphocytes # (Manual) POC ABG pH POC ABG pCO2 POC ABG pO2 Sodium Potassium Chloride Carbon Dioxide BUN Creatinine Glucose POC Glucose 131 H Lactic Acid 2.40 H* Calcium Ionized Calcium Phosphorus AST Alkaline Phosphatase Lactate Dehydrogenase CK-MB (CK-2) Troponin T C-Reactive Protein 1.90 H Total Protein Albumin LDL Cholesterol Direct PTH Intact Fluid Total Protein Salicylates Crossmatch Prewarmed 07/03/17 07/04/17 07/04/17 Unknown 00:13 02:04 WBC RBC Hgb Hct MCV MCHC RDW Plt Count Lymph % (Auto) Nolan % (Auto) Lymph # Nolan # Seg Neutrophils % Seg Neuts % (Manual) Lymphocytes % (Manual) Seg Neutrophils # Seg Neutrophils # Man Lymphocytes # (Manual) POC ABG pH POC ABG pCO2 POC ABG pO2 Sodium Potassium Chloride Carbon Dioxide BUN 52 H Creatinine 4.3 H Glucose POC Glucose 69 L 111 H Lactic Acid Calcium 7.2 L Ionized Calcium Phosphorus AST Alkaline Phosphatase Lactate Dehydrogenase CK-MB (CK-2) Troponin T C-Reactive Protein Total Protein Albumin LDL Cholesterol Direct PTH Intact Fluid Total Protein Salicylates Crossmatch Prewarmed 07/04/17 07/04/17 07/04/17 04:38 08:00 08:00 WBC 28.3 H RBC 3.55 L Hgb 10.3 L Hct 31.2 L MCV MCHC RDW 15.3 H Plt Count 101 L Lymph % (Auto) Nolan % (Auto) Lymph # Nolan # Seg Neutrophils % Seg Neuts % (Manual) Lymphocytes % (Manual) Seg Neutrophils # Seg Neutrophils # Man Lymphocytes # (Manual) POC ABG pH POC ABG pCO2 27.6 L POC ABG pO2 Sodium Potassium Chloride Carbon Dioxide 20 L BUN 62 H Creatinine 4.7 H Glucose POC Glucose Lactic Acid Calcium 7.0 L Ionized Calcium Phosphorus AST Alkaline Phosphatase Lactate Dehydrogenase CK-MB (CK-2) Troponin T C-Reactive Protein Total Protein Albumin LDL Cholesterol Direct PTH Intact Fluid Total Protein Salicylates Crossmatch Prewarmed 07/04/17 07/04/17 07/04/17 14:10 14:10 14:33 WBC RBC Hgb Hct MCV MCHC RDW Plt Count Lymph % (Auto) Nolan % (Auto) Lymph # Nolan # Seg Neutrophils % Seg Neuts % (Manual) Lymphocytes % (Manual) Seg Neutrophils # Seg Neutrophils # Man Lymphocytes # (Manual) POC ABG pH 7.474 H POC ABG pCO2 29.4 L POC ABG pO2 Sodium Potassium Chloride Carbon Dioxide BUN Creatinine Glucose POC Glucose Lactic Acid Calcium Ionized Calcium 4.6 L Phosphorus AST Alkaline Phosphatase Lactate Dehydrogenase CK-MB (CK-2) 4.3 H Troponin T 0.282 H* C-Reactive Protein Total Protein Albumin LDL Cholesterol Direct 22 L PTH Intact Fluid Total Protein Salicylates Crossmatch Prewarmed 07/04/17 07/04/17 07/04/17 17:26 20:40 23:34 WBC RBC Hgb Hct MCV MCHC RDW Plt Count Lymph % (Auto) Nolan % (Auto) Lymph # Nolan # Seg Neutrophils % Seg Neuts % (Manual) Lymphocytes % (Manual) Seg Neutrophils # Seg Neutrophils # Man Lymphocytes # (Manual) POC ABG pH POC ABG pCO2 POC ABG pO2 Sodium Potassium Chloride Carbon Dioxide BUN Creatinine Glucose POC Glucose 201 H 188 H Lactic Acid Calcium Ionized Calcium Phosphorus AST Alkaline Phosphatase Lactate Dehydrogenase CK-MB (CK-2) Troponin T 0.276 H* C-Reactive Protein Total Protein Albumin LDL Cholesterol Direct PTH Intact Fluid Total Protein Salicylates Crossmatch Prewarmed 07/05/17 07/05/17 07/05/17 05:42 07:50 11:52 WBC RBC Hgb Hct MCV MCHC RDW Plt Count Lymph % (Auto) Nolan % (Auto) Lymph # Nolan # Seg Neutrophils % Seg Neuts % (Manual) Lymphocytes % (Manual) Seg Neutrophils # Seg Neutrophils # Man Lymphocytes # (Manual) POC ABG pH POC ABG pCO2 POC ABG pO2 117 H Sodium Potassium Chloride Carbon Dioxide BUN Creatinine Glucose POC Glucose 126 H 110 H Lactic Acid Calcium Ionized Calcium Phosphorus AST Alkaline Phosphatase Lactate Dehydrogenase CK-MB (CK-2) Troponin T C-Reactive Protein Total Protein Albumin LDL Cholesterol Direct PTH Intact Fluid Total Protein Salicylates Crossmatch Prewarmed 07/05/17 07/05/17 07/05/17 12:40 17:51 18:12 WBC RBC Hgb Hct MCV MCHC RDW Plt Count Lymph % (Auto) Nolan % (Auto) Lymph # Nolan # Seg Neutrophils % Seg Neuts % (Manual) Lymphocytes % (Manual) Seg Neutrophils # Seg Neutrophils # Man Lymphocytes # (Manual) POC ABG pH POC ABG pCO2 POC ABG pO2 Sodium Potassium Chloride Carbon Dioxide BUN Creatinine Glucose POC Glucose 57 L 69 L Lactic Acid Calcium Ionized Calcium Phosphorus AST Alkaline Phosphatase Lactate Dehydrogenase CK-MB (CK-2) Troponin T 0.277 H* C-Reactive Protein Total Protein Albumin LDL Cholesterol Direct PTH Intact Fluid Total Protein Salicylates Crossmatch Prewarmed 07/05/17 07/05/17 07/05/17 Unknown Unknown Unknown WBC 22.2 H RBC 3.24 L Hgb 9.7 L Hct 28.6 L MCV MCHC RDW Plt Count 89 L Lymph % (Auto) Nolan % (Auto) Lymph # Nolan # Seg Neutrophils % Seg Neuts % (Manual) 89.0 H Lymphocytes % (Manual) 7.0 L Seg Neutrophils # Seg Neutrophils # Man 19.8 H Lymphocytes # (Manual) POC ABG pH POC ABG pCO2 POC ABG pO2 Sodium Potassium 3.5 L Chloride Carbon Dioxide BUN 37 H Creatinine 3.1 H Glucose 120 H POC Glucose Lactic Acid 2.30 H* Calcium 7.7 L Ionized Calcium Phosphorus AST Alkaline Phosphatase Lactate Dehydrogenase CK-MB (CK-2) Troponin T C-Reactive Protein Total Protein Albumin LDL Cholesterol Direct PTH Intact Fluid Total Protein Salicylates Crossmatch Prewarmed 07/05/17 07/06/17 07/06/17 Unknown 03:25 03:25 WBC 17.7 H RBC 3.14 L Hgb 9.3 L Hct 27.8 L MCV MCHC RDW 15.7 H Plt Count 82 L Lymph % (Auto) 2.5 L Nolan % (Auto) Lymph # 0.4 L Nolan # 1.1 H Seg Neutrophils % 90.0 H Seg Neuts % (Manual) Lymphocytes % (Manual) Seg Neutrophils # 15.9 H Seg Neutrophils # Man Lymphocytes # (Manual) POC ABG pH POC ABG pCO2 POC ABG pO2 Sodium Potassium 3.3 L Chloride Carbon Dioxide BUN 44 H Creatinine 3.6 H Glucose 132 H POC Glucose Lactic Acid Calcium 7.4 L Ionized Calcium Phosphorus AST Alkaline Phosphatase Lactate Dehydrogenase CK-MB (CK-2) Troponin T C-Reactive Protein 9.90 H Total Protein Albumin LDL Cholesterol Direct PTH Intact Fluid Total Protein Salicylates Crossmatch Prewarmed 07/06/17 07/06/17 07/06/17 04:19 05:24 08:30 WBC RBC Hgb Hct MCV MCHC RDW Plt Count Lymph % (Auto) Nolan % (Auto) Lymph # Nolan # Seg Neutrophils % Seg Neuts % (Manual) Lymphocytes % (Manual) Seg Neutrophils # Seg Neutrophils # Man Lymphocytes # (Manual) POC ABG pH POC ABG pCO2 34.3 L POC ABG pO2 Sodium Potassium Chloride Carbon Dioxide BUN Creatinine Glucose POC Glucose 174 H Lactic Acid Calcium Ionized Calcium Phosphorus AST Alkaline Phosphatase Lactate Dehydrogenase 880 H CK-MB (CK-2) Troponin T C-Reactive Protein Total Protein 4.9 L Albumin LDL Cholesterol Direct PTH Intact Fluid Total Protein Salicylates Crossmatch Prewarmed 07/06/17 07/06/17 07/06/17 11:13 17:14 23:38 WBC RBC Hgb Hct MCV MCHC RDW Plt Count Lymph % (Auto) Nolan % (Auto) Lymph # Nolan # Seg Neutrophils % Seg Neuts % (Manual) Lymphocytes % (Manual) Seg Neutrophils # Seg Neutrophils # Man Lymphocytes # (Manual) POC ABG pH POC ABG pCO2 POC ABG pO2 Sodium Potassium Chloride Carbon Dioxide BUN Creatinine Glucose POC Glucose 216 H 211 H 122 H Lactic Acid Calcium Ionized Calcium Phosphorus AST Alkaline Phosphatase Lactate Dehydrogenase CK-MB (CK-2) Troponin T C-Reactive Protein Total Protein Albumin LDL Cholesterol Direct PTH Intact Fluid Total Protein Salicylates Crossmatch Prewarmed 07/06/17 07/07/17 07/07/17 Unknown 04:38 05:00 WBC 16.1 H RBC 3.00 L Hgb 8.9 L Hct 26.6 L MCV MCHC RDW 15.6 H Plt Count 106 L Lymph % (Auto) 4.1 L Nolan % (Auto) 8.0 H Lymph # 0.7 L Nolan # 1.3 H Seg Neutrophils % 86.6 H Seg Neuts % (Manual) Lymphocytes % (Manual) Seg Neutrophils # 13.9 H Seg Neutrophils # Man Lymphocytes # (Manual) POC ABG pH 7.455 H POC ABG pCO2 POC ABG pO2 134 H Sodium Potassium Chloride Carbon Dioxide BUN Creatinine Glucose POC Glucose Lactic Acid Calcium Ionized Calcium Phosphorus AST Alkaline Phosphatase Lactate Dehydrogenase CK-MB (CK-2) Troponin T C-Reactive Protein Total Protein Albumin LDL Cholesterol Direct PTH Intact Fluid Total Protein < 3.0 L Salicylates Crossmatch Prewarmed 07/07/17 07/07/17 07/07/17 05:00 05:17 11:33 WBC RBC Hgb Hct MCV MCHC RDW Plt Count Lymph % (Auto) Nolan % (Auto) Lymph # Nolan # Seg Neutrophils % Seg Neuts % (Manual) Lymphocytes % (Manual) Seg Neutrophils # Seg Neutrophils # Man Lymphocytes # (Manual) POC ABG pH POC ABG pCO2 POC ABG pO2 Sodium Potassium Chloride Carbon Dioxide BUN 30 H Creatinine 2.8 H Glucose 188 H POC Glucose 189 H 275 H Lactic Acid Calcium 7.9 L Ionized Calcium Phosphorus AST Alkaline Phosphatase Lactate Dehydrogenase CK-MB (CK-2) Troponin T C-Reactive Protein Total Protein Albumin LDL Cholesterol Direct PTH Intact Fluid Total Protein Salicylates Crossmatch Prewarmed 07/07/17 07/07/17 07/07/17 16:04 17:08 23:45 WBC RBC Hgb Hct MCV MCHC RDW Plt Count Lymph % (Auto) Nolan % (Auto) Lymph # Nolan # Seg Neutrophils % Seg Neuts % (Manual) Lymphocytes % (Manual) Seg Neutrophils # Seg Neutrophils # Man Lymphocytes # (Manual) POC ABG pH POC ABG pCO2 POC ABG pO2 126 H Sodium Potassium Chloride Carbon Dioxide BUN Creatinine Glucose POC Glucose 241 H 118 H Lactic Acid Calcium Ionized Calcium Phosphorus AST Alkaline Phosphatase Lactate Dehydrogenase CK-MB (CK-2) Troponin T C-Reactive Protein Total Protein Albumin LDL Cholesterol Direct PTH Intact Fluid Total Protein Salicylates Crossmatch Prewarmed 07/08/17 07/08/17 07/08/17 05:30 05:54 06:12 WBC 17.0 H RBC 3.27 L Hgb 9.5 L Hct 29.1 L MCV MCHC RDW 15.6 H Plt Count 133 L Lymph % (Auto) 4.6 L Nolan % (Auto) 9.2 H Lymph # 0.8 L Nolan # 1.6 H Seg Neutrophils % 83.9 H Seg Neuts % (Manual) Lymphocytes % (Manual) Seg Neutrophils # 14.3 H Seg Neutrophils # Man Lymphocytes # (Manual) POC ABG pH 7.477 H POC ABG pCO2 POC ABG pO2 118 H Sodium Potassium Chloride Carbon Dioxide BUN Creatinine Glucose POC Glucose 199 H Lactic Acid Calcium Ionized Calcium Phosphorus AST Alkaline Phosphatase Lactate Dehydrogenase CK-MB (CK-2) Troponin T C-Reactive Protein Total Protein Albumin LDL Cholesterol Direct PTH Intact Fluid Total Protein Salicylates Crossmatch Prewarmed 07/08/17 07/08/17 07/08/17 06:12 11:37 17:21 WBC RBC Hgb Hct MCV MCHC RDW Plt Count Lymph % (Auto) Nolan % (Auto) Lymph # Nolan # Seg Neutrophils % Seg Neuts % (Manual) Lymphocytes % (Manual) Seg Neutrophils # Seg Neutrophils # Man Lymphocytes # (Manual) POC ABG pH POC ABG pCO2 POC ABG pO2 Sodium Potassium Chloride Carbon Dioxide BUN 44 H Creatinine 3.4 H Glucose 190 H POC Glucose 236 H 186 H Lactic Acid Calcium 7.8 L Ionized Calcium Phosphorus AST Alkaline Phosphatase Lactate Dehydrogenase CK-MB (CK-2) Troponin T C-Reactive Protein Total Protein Albumin LDL Cholesterol Direct PTH Intact Fluid Total Protein Salicylates Crossmatch Prewarmed 07/08/17 07/09/17 07/09/17 23:09 04:27 05:02 WBC 17.8 H RBC 2.88 L Hgb 8.5 L Hct 25.6 L MCV MCHC RDW 15.5 H Plt Count Lymph % (Auto) 4.6 L Nolan % (Auto) 10.2 H Lymph # 0.8 L Nolan # 1.8 H Seg Neutrophils % 83.4 H Seg Neuts % (Manual) Lymphocytes % (Manual) Seg Neutrophils # 14.8 H Seg Neutrophils # Man Lymphocytes # (Manual) POC ABG pH POC ABG pCO2 POC ABG pO2 132 H Sodium Potassium Chloride Carbon Dioxide BUN Creatinine Glucose POC Glucose 203 H Lactic Acid Calcium Ionized Calcium Phosphorus AST Alkaline Phosphatase Lactate Dehydrogenase CK-MB (CK-2) Troponin T C-Reactive Protein Total Protein Albumin LDL Cholesterol Direct PTH Intact Fluid Total Protein Salicylates Crossmatch Prewarmed 07/09/17 07/09/17 07/09/17 05:02 05:33 12:07 WBC RBC Hgb Hct MCV MCHC RDW Plt Count Lymph % (Auto) Nolan % (Auto) Lymph # Nolan # Seg Neutrophils % Seg Neuts % (Manual) Lymphocytes % (Manual) Seg Neutrophils # Seg Neutrophils # Man Lymphocytes # (Manual) POC ABG pH POC ABG pCO2 POC ABG pO2 Sodium Potassium Chloride Carbon Dioxide BUN 61 H Creatinine 4.0 H Glucose 183 H POC Glucose 177 H 276 H Lactic Acid Calcium 7.6 L Ionized Calcium Phosphorus AST Alkaline Phosphatase Lactate Dehydrogenase CK-MB (CK-2) Troponin T C-Reactive Protein Total Protein Albumin LDL Cholesterol Direct PTH Intact Fluid Total Protein Salicylates Crossmatch Prewarmed 07/09/17 07/10/17 07/10/17 18:54 03:50 03:50 WBC 16.8 H RBC 2.77 L Hgb 8.1 L Hct 24.9 L MCV MCHC RDW 15.7 H Plt Count Lymph % (Auto) 4.3 L Nolan % (Auto) 10.8 H Lymph # 0.7 L Nolan # 1.8 H Seg Neutrophils % 83.5 H Seg Neuts % (Manual) Lymphocytes % (Manual) Seg Neutrophils # 14.1 H Seg Neutrophils # Man Lymphocytes # (Manual) POC ABG pH POC ABG pCO2 POC ABG pO2 Sodium Potassium Chloride Carbon Dioxide BUN 31 H Creatinine 2.5 H Glucose 129 H POC Glucose 178 H Lactic Acid Calcium 8.1 L Ionized Calcium Phosphorus AST Alkaline Phosphatase Lactate Dehydrogenase CK-MB (CK-2) Troponin T C-Reactive Protein Total Protein Albumin LDL Cholesterol Direct PTH Intact Fluid Total Protein Salicylates Crossmatch Prewarmed 07/10/17 07/10/17 07/10/17 05:41 10:02 10:07 WBC 16.3 H RBC 2.66 L Hgb 7.9 L Hct 23.5 L MCV MCHC RDW 16.1 H Plt Count Lymph % (Auto) 4.8 L Nolan % (Auto) 9.6 H Lymph # 0.8 L Nolan # 1.6 H Seg Neutrophils % 84.0 H Seg Neuts % (Manual) Lymphocytes % (Manual) Seg Neutrophils # 13.7 H Seg Neutrophils # Man Lymphocytes # (Manual) POC ABG pH POC ABG pCO2 POC ABG pO2 Sodium Potassium Chloride Carbon Dioxide BUN 35 H Creatinine 2.6 H Glucose 196 H POC Glucose 160 H Lactic Acid Calcium 7.9 L Ionized Calcium Phosphorus AST Alkaline Phosphatase Lactate Dehydrogenase CK-MB (CK-2) Troponin T C-Reactive Protein Total Protein Albumin LDL Cholesterol Direct PTH Intact Fluid Total Protein Salicylates Crossmatch Prewarmed 07/10/17 07/10/17 07/10/17 11:21 14:14 16:36 WBC RBC Hgb Hct MCV MCHC RDW Plt Count Lymph % (Auto) Nolan % (Auto) Lymph # Nolan # Seg Neutrophils % Seg Neuts % (Manual) Lymphocytes % (Manual) Seg Neutrophils # Seg Neutrophils # Man Lymphocytes # (Manual) POC ABG pH POC ABG pCO2 POC ABG pO2 138 H Sodium Potassium Chloride Carbon Dioxide BUN Creatinine Glucose POC Glucose 206 H 133 H Lactic Acid Calcium Ionized Calcium Phosphorus AST Alkaline Phosphatase Lactate Dehydrogenase CK-MB (CK-2) Troponin T C-Reactive Protein Total Protein Albumin LDL Cholesterol Direct PTH Intact Fluid Total Protein Salicylates Crossmatch Prewarmed 07/11/17 07/11/17 07/11/17 04:08 08:19 13:58 WBC RBC Hgb Hct MCV MCHC RDW Plt Count Lymph % (Auto) Nolan % (Auto) Lymph # Nolan # Seg Neutrophils % Seg Neuts % (Manual) Lymphocytes % (Manual) Seg Neutrophils # Seg Neutrophils # Man Lymphocytes # (Manual) POC ABG pH POC ABG pCO2 POC ABG pO2 Sodium Potassium Chloride Carbon Dioxide BUN 45 H Creatinine 3.1 H Glucose POC Glucose 155 H 199 H Lactic Acid Calcium 7.8 L Ionized Calcium Phosphorus AST Alkaline Phosphatase Lactate Dehydrogenase CK-MB (CK-2) Troponin T C-Reactive Protein Total Protein Albumin LDL Cholesterol Direct PTH Intact Fluid Total Protein Salicylates Crossmatch Prewarmed 07/11/17 07/11/17 07/12/17 17:52 23:39 04:37 WBC 12.9 H RBC 2.62 L Hgb 7.6 L Hct 24.0 L MCV MCHC RDW 16.0 H Plt Count Lymph % (Auto) 4.8 L Nolan % (Auto) 8.6 H Lymph # 0.6 L Nolan # 1.1 H Seg Neutrophils % 84.8 H Seg Neuts % (Manual) Lymphocytes % (Manual) Seg Neutrophils # 10.9 H Seg Neutrophils # Man Lymphocytes # (Manual) POC ABG pH POC ABG pCO2 POC ABG pO2 Sodium Potassium Chloride Carbon Dioxide BUN Creatinine Glucose POC Glucose 133 H 129 H Lactic Acid Calcium Ionized Calcium Phosphorus AST Alkaline Phosphatase Lactate Dehydrogenase CK-MB (CK-2) Troponin T C-Reactive Protein Total Protein Albumin LDL Cholesterol Direct PTH Intact Fluid Total Protein Salicylates Crossmatch [facility] 07/12/17 07/12/17 07/12/17 04:37 05:39 11:41 WBC RBC Hgb Hct MCV MCHC RDW Plt Count Lymph % (Auto) Nolan % (Auto) Lymph # Nolan # Seg Neutrophils % Seg Neuts % (Manual) Lymphocytes % (Manual) Seg Neutrophils # Seg Neutrophils # Man Lymphocytes # (Manual) POC ABG pH POC ABG pCO2 POC ABG pO2 Sodium Potassium Chloride Carbon Dioxide BUN 29 H Creatinine 2.1 H Glucose 137 H POC Glucose 149 H 203 H Lactic Acid Calcium 8.0 L Ionized Calcium Phosphorus AST Alkaline Phosphatase Lactate Dehydrogenase CK-MB (CK-2) Troponin T C-Reactive Protein Total Protein Albumin LDL Cholesterol Direct PTH Intact Fluid Total Protein Salicylates Crossmatch [place] 07/13/17 07/13/17 07/13/17 04:46 05:35 12:14 WBC RBC Hgb Hct MCV MCHC RDW Plt Count Lymph % (Auto) Nolan % (Auto) Lymph # Nolan # Seg Neutrophils % Seg Neuts % (Manual) Lymphocytes % (Manual) Seg Neutrophils # Seg Neutrophils # Man Lymphocytes # (Manual) POC ABG pH POC ABG pCO2 POC ABG pO2 Sodium Potassium Chloride Carbon Dioxide BUN 46 H Creatinine 2.8 H Glucose 128 H POC Glucose 139 H 243 H Lactic Acid Calcium 7.5 L Ionized Calcium Phosphorus AST Alkaline Phosphatase Lactate Dehydrogenase CK-MB (CK-2) Troponin T C-Reactive Protein Total Protein Albumin LDL Cholesterol Direct PTH Intact Fluid Total Protein Salicylates Crossmatch [place] 07/13/17 07/13/17 07/14/17 17:33 23:48 05:32 WBC RBC Hgb Hct MCV MCHC RDW Plt Count Lymph % (Auto) Nolan % (Auto) Lymph # Nolan # Seg Neutrophils % Seg Neuts % (Manual) Lymphocytes % (Manual) Seg Neutrophils # Seg Neutrophils # Man Lymphocytes # (Manual) POC ABG pH POC ABG pCO2 POC ABG pO2 Sodium Potassium Chloride Carbon Dioxide BUN Creatinine Glucose POC Glucose 193 H 133 H 143 H Lactic Acid Calcium Ionized Calcium Phosphorus AST Alkaline Phosphatase Lactate Dehydrogenase CK-MB (CK-2) Troponin T C-Reactive Protein Total Protein Albumin LDL Cholesterol Direct PTH Intact Fluid Total Protein Salicylates Crossmatch [place] 07/14/17 07/14/17 07/15/17 11:43 17:49 05:09 WBC RBC Hgb Hct MCV MCHC RDW Plt Count Lymph % (Auto) Nolan % (Auto) Lymph # Nolan # Seg Neutrophils % Seg Neuts % (Manual) Lymphocytes % (Manual) Seg Neutrophils # Seg Neutrophils # Man Lymphocytes # (Manual) POC ABG pH POC ABG pCO2 POC ABG pO2 Sodium Potassium Chloride Carbon Dioxide BUN Creatinine Glucose POC Glucose 143 H 195 H 61 L Lactic Acid Calcium Ionized Calcium Phosphorus AST Alkaline Phosphatase Lactate Dehydrogenase CK-MB (CK-2) Troponin T C-Reactive Protein Total Protein Albumin LDL Cholesterol Direct PTH Intact Fluid Total Protein Salicylates Crossmatch [place] 07/15/17 07/15/17 07/15/17 12:00 12:52 12:52 WBC 13.6 H RBC 1.76 L Hgb 5.2 L* Hct 15.8 L* MCV MCHC RDW 16.1 H Plt Count Lymph % (Auto) 4.7 L Nolan % (Auto) 8.3 H Lymph # 0.6 L Nolan # 1.1 H Seg Neutrophils % 85.4 H Seg Neuts % (Manual) Lymphocytes % (Manual) Seg Neutrophils # 11.7 H Seg Neutrophils # Man Lymphocytes # (Manual) POC ABG pH POC ABG pCO2 POC ABG pO2 Sodium Potassium Chloride Carbon Dioxide BUN 54 H Creatinine 2.7 H Glucose 157 H POC Glucose 164 H Lactic Acid Calcium 7.1 L Ionized Calcium Phosphorus 1.90 L AST 50 H Alkaline Phosphatase 152 H Lactate Dehydrogenase CK-MB (CK-2) Troponin T C-Reactive Protein Total Protein 4.7 L Albumin 1.6 L LDL Cholesterol Direct PTH Intact Fluid Total Protein Salicylates Crossmatch [place] 07/15/17 07/15/17 07/15/17 12:52 14:49 14:49 WBC RBC Hgb 6.5 L Hct 19.6 L* MCV MCHC RDW Plt Count Lymph % (Auto) Nolan % (Auto) Lymph # Nolan # Seg Neutrophils % Seg Neuts % (Manual) Lymphocytes % (Manual) Seg Neutrophils # Seg Neutrophils # Man Lymphocytes # (Manual) POC ABG pH POC ABG pCO2 POC ABG pO2 Sodium Potassium Chloride Carbon Dioxide BUN Creatinine Glucose POC Glucose Lactic Acid Calcium Ionized Calcium Phosphorus AST Alkaline Phosphatase Lactate Dehydrogenase CK-MB (CK-2) Troponin T C-Reactive Protein Total Protein Albumin LDL Cholesterol Direct PTH Intact 159.8 H Fluid Total Protein Salicylates Crossmatch [facility] See Detail 07/15/17 07/15/17 07/16/17 17:54 23:45 02:33 WBC RBC Hgb 7.0 L Hct 20.6 L MCV MCHC RDW Plt Count Lymph % (Auto) Nolan % (Auto) Lymph # Nolan # Seg Neutrophils % Seg Neuts % (Manual) Lymphocytes % (Manual) Seg Neutrophils # Seg Neutrophils # Man Lymphocytes # (Manual) POC ABG pH POC ABG pCO2 POC ABG pO2 Sodium Potassium Chloride Carbon Dioxide BUN Creatinine Glucose POC Glucose 216 H 126 H Lactic Acid Calcium Ionized Calcium Phosphorus AST Alkaline Phosphatase Lactate Dehydrogenase CK-MB (CK-2) Troponin T C-Reactive Protein Total Protein Albumin LDL Cholesterol Direct PTH Intact Fluid Total Protein Salicylates Crossmatch [place] 07/16/17 07/16/17 07/16/17 05:32 08:32 11:59 WBC RBC Hgb 6.2 L Hct 18.9 L* MCV MCHC RDW Plt Count Lymph % (Auto) Nolan % (Auto) Lymph # Nolan # Seg Neutrophils % Seg Neuts % (Manual) Lymphocytes % (Manual) Seg Neutrophils # Seg Neutrophils # Man Lymphocytes # (Manual) POC ABG pH POC ABG pCO2 POC ABG pO2 Sodium Potassium Chloride Carbon Dioxide BUN Creatinine Glucose POC Glucose 174 H 206 H Lactic Acid Calcium Ionized Calcium Phosphorus AST Alkaline Phosphatase Lactate Dehydrogenase CK-MB (CK-2) Troponin T C-Reactive Protein Total Protein Albumin LDL Cholesterol Direct PTH Intact Fluid Total Protein Salicylates Crossmatch [place] 07/16/17 07/16/17 07/16/17 12:46 18:04 21:23 WBC RBC Hgb 7.4 L Hct 22.1 L MCV MCHC RDW Plt Count Lymph % (Auto) Nolan % (Auto) Lymph # Nolan # Seg Neutrophils % Seg Neuts % (Manual) Lymphocytes % (Manual) Seg Neutrophils # Seg Neutrophils # Man Lymphocytes # (Manual) POC ABG pH 7.511 H POC ABG pCO2 POC ABG pO2 155 H Sodium Potassium Chloride Carbon Dioxide BUN Creatinine Glucose POC Glucose 52 L Lactic Acid Calcium Ionized Calcium Phosphorus AST Alkaline Phosphatase Lactate Dehydrogenase CK-MB (CK-2) Troponin T C-Reactive Protein Total Protein Albumin LDL Cholesterol Direct PTH Intact Fluid Total Protein Salicylates Crossmatch [place] 07/16/17 07/17/17 07/17/17 23:51 05:01 05:17 WBC RBC Hgb Hct MCV MCHC RDW Plt Count Lymph % (Auto) Nolan % (Auto) Lymph # Nolan # Seg Neutrophils % Seg Neuts % (Manual) Lymphocytes % (Manual) Seg Neutrophils # Seg Neutrophils # Man Lymphocytes # (Manual) POC ABG pH POC ABG pCO2 POC ABG pO2 Sodium Potassium Chloride Carbon Dioxide BUN Creatinine Glucose 103 H POC Glucose 109 H < 40 L Lactic Acid Calcium Ionized Calcium Phosphorus AST Alkaline Phosphatase Lactate Dehydrogenase CK-MB (CK-2) Troponin T C-Reactive Protein Total Protein Albumin LDL Cholesterol Direct PTH Intact Fluid Total Protein Salicylates Crossmatch [place] 07/17/17 07/17/17 07/17/17 12:39 17:35 17:44 WBC RBC Hgb 8.9 L Hct 26.7 L MCV MCHC RDW Plt Count Lymph % (Auto) Nolan % (Auto) Lymph # Nolan # Seg Neutrophils % Seg Neuts % (Manual) Lymphocytes % (Manual) Seg Neutrophils # Seg Neutrophils # Man Lymphocytes # (Manual) POC ABG pH POC ABG pCO2 POC ABG pO2 Sodium Potassium Chloride Carbon Dioxide BUN Creatinine Glucose POC Glucose 182 H 194 H Lactic Acid Calcium Ionized Calcium Phosphorus AST Alkaline Phosphatase Lactate Dehydrogenase CK-MB (CK-2) Troponin T C-Reactive Protein Total Protein Albumin LDL Cholesterol Direct PTH Intact Fluid Total Protein Salicylates Crossmatch [place] 07/17/17 07/18/17 07/18/17 23:32 03:54 03:54 WBC 14.9 H RBC 2.78 L Hgb 8.9 L Hct 26.2 L MCV MCHC RDW 15.9 H Plt Count Lymph % (Auto) Nolan % (Auto) Lymph # Nolan # Seg Neutrophils % Seg Neuts % (Manual) Lymphocytes % (Manual) Seg Neutrophils # Seg Neutrophils # Man Lymphocytes # (Manual) POC ABG pH POC ABG pCO2 POC ABG pO2 Sodium Potassium Chloride Carbon Dioxide BUN 43 H Creatinine 2.6 H Glucose 219 H POC Glucose 190 H Lactic Acid Calcium 7.9 L Ionized Calcium Phosphorus AST Alkaline Phosphatase Lactate Dehydrogenase CK-MB (CK-2) Troponin T C-Reactive Protein Total Protein Albumin LDL Cholesterol Direct PTH Intact Fluid Total Protein Salicylates Crossmatch [place] 07/18/17 07/18/17 07/18/17 05:37 12:28 17:44 WBC RBC Hgb Hct MCV MCHC RDW Plt Count Lymph % (Auto) Nolan % (Auto) Lymph # Nolan # Seg Neutrophils % Seg Neuts % (Manual) Lymphocytes % (Manual) Seg Neutrophils # Seg Neutrophils # Man Lymphocytes # (Manual) POC ABG pH POC ABG pCO2 POC ABG pO2 Sodium Potassium Chloride Carbon Dioxide BUN Creatinine Glucose POC Glucose 263 H 211 H 213 H Lactic Acid Calcium Ionized Calcium Phosphorus AST Alkaline Phosphatase Lactate Dehydrogenase CK-MB (CK-2) Troponin T C-Reactive Protein Total Protein Albumin LDL Cholesterol Direct PTH Intact Fluid Total Protein Salicylates Crossmatch [place] 07/19/17 07/19/17 00:07 11:32 WBC RBC Hgb Hct MCV MCHC RDW Plt Count Lymph % (Auto) Nolan % (Auto) Lymph # Nolan # Seg Neutrophils % Seg Neuts % (Manual) Lymphocytes % (Manual) Seg Neutrophils # Seg Neutrophils # Man Lymphocytes # (Manual) POC ABG pH POC ABG pCO2 POC ABG pO2 Sodium Potassium Chloride Carbon Dioxide BUN Creatinine Glucose POC Glucose 68 L 129 H Lactic Acid Calcium Ionized Calcium Phosphorus AST Alkaline Phosphatase Lactate Dehydrogenase CK-MB (CK-2) Troponin T C-Reactive Protein Total Protein Albumin LDL Cholesterol Direct PTH Intact Fluid Total Protein Salicylates Crossmatch [facility] Allied health notes reviewed: nursing
--- NOTE | 2017-07-19 14:51 | Operative Report ---
Operative Report Operative Report: Date of procedure: 07/19/2017 Pre-operative diagnosis: Respiratory failure with vent dependence Post-operative diagnosis: Same Procedure name(s): Percutaneous tracheostomy Surgeon: Glo Mendoza MD Patient Financial Rep: Rosa Reyna M.D. Anesthesia: General, 1% lidocaine EBL: Minimal Complications: None Instrument Count: correct Indications: This is a 76-year-old male with a history of respiratory failure and prolonged vent dependence. The patient met the criteria for placement of a tracheostomy. Above named procedure was offered to the family of the possible treatment modality. The risks and benefits to discuss until all questions were answered. He was subsequent reset of the procedure. Findings: Nonsignificant Procedure: We reviewed informed consent. The patient was then positioned in a semi-follow position the neck slightly extended. After infiltration of local anesthetic. Minimal small incision proximally one centimeter in size vertically 2 cm above the sternal notch in the neck. At this time anesthesia was prompted to partially withdraw the endotracheal tube to 16 cm at the teeth. Using a introducer needle on the syringe on gentle suction, we cannulated the trachea which was verified by a release of the suction. We placed a guidewire through the introducer needle and removed the needle we assured that we had not entrapped the endotracheal tube. We then dilated the tract using a 14 [place] skin dilator. This was substituted for a stiff catheter and Blue Rhino dilator combination. A 8 Shiley endotracheal tube was then placed over the stiff catheter and guidewire into the trachea. We removed the dilator catheter and guidewire and inserted the inner cannula. We then verified end tidal CO2. We secured the wings of the tracheostomy tube to the skin using a 2-0 Prolene. A tracheostomy collar was then applied and attached to the tracheostomy tube. The patient tolerated the procedure well. She was maintained on a ventilator in no apparent distress.
--- NOTE | 2017-07-19 14:53 | Operative Report ---
Operative Report Operative Report: Date of procedure: 07/19/2017 Pre-operative diagnosis: Malnutrition with need for nutritional support, prolonged vent dependence Post-operative diagnosis: Same Procedure name(s): Percutaneous endoscopic gastrostomy tube placement Surgeon: Glo Mendoza MD Cable Supervisor: Félix Reyna M.D. Anesthesia: General, 1% lidocaine EBL: Minimal Complications: None Instrument Count: Correct Indications: This is a 76-year-old male with a history of prolonged vent dependence in need of nutritional support. The above-named procedure was offered to the family as a possible treatment modality. The risks and benefits discussed and all questions were answered. He was subsequent set up for the procedure. Findings: None significant Procedure: We reviewed the informed consent. The patient was then positioned with the head up. After adequate anesthesia was reached, we inserted the endoscope of the oral cavity into the stomach. The stomach was then insufflated to maximal capacity until the rugae flattened. At this time we applied gentle palpation externally and observed this visually through the endoscope, choosing a position approximately 2 fingerbreadths below the left costal margin. This was further verified using transillumination seen externally. We infiltrated local anesthetic at the site chosen. We then made a 5 mm incision at the site, and placed Angiocath through the incision. The needle was removed, and a guidewire was placed through the Angiocath. The guidewire was grasped using an endoscopic snare and brought through the oral cavity. This was attached to a 20 [place] pull-through gastrostomy tube. We then retracted the guidewire through the abdominal wall, bringing the gastrostomy tube through the oral cavity. We secured the external portion of the tube. Using the endoscope we verified placement within the stomach cavity. The tube was then secured to the abdominal wall sterilely. The patient tolerated this well and was maintained in no apparent distress
--- NOTE | 2017-07-19 15:21 | Post Anesthesia Evaluation ---
- Post Anesthesia Evaluation Patient Participated: No Airway Patent: Yes Stable Respiratory Function: Yes Nausea/Vomiting: No Temp > 96.8F: Yes Pain Manageable: Yes Adequeate Hydration: Yes Anesthesia Complications: No Block Receding Appropriately: Not Applicable Patient on Ventilator: Yes
[2017-07-20] MEDS: COREG PO SCH ×3 (00:13→21:28)
[2017-07-20] MEDS: NOVOLOG SUB-Q SCH ×4 (00:13→17:59)
[2017-07-20] MEDS: FOLVITE PO SCH (09:56)
[2017-07-20] MEDS: HEPARIN SUB-Q SCH ×2 (09:56→21:28)
[2017-07-20] MEDS: THERAGRAN-M Tab PO SCH (09:57)
[2017-07-20] MEDS: ASPIRIN PO SCH (09:57)
[2017-07-20] MEDS: PEPCID PO SCH (09:57)
[2017-07-20] MEDS: ROCALTROL PO SCH (09:58)
--- NOTE | 2017-07-20 10:02 | Progress Note ---
Assessment and Plan Impression * End-stage renal disease on maintenance hemodialysis * Status post cardiac arrest * Anemia * Respiratory failure * Encephalopathy * Hyperosmolar nonketotic state Recommendations * Continue hemodialysis on Mondays, Wednesdays and Fridays * Continue Epogen with dialysis * packed RBC transfusion as needed * Adjust diet and meds for ESRD state * Avoid nephrotoxins * Overall prognosis appears to be poor * Status post trach and PEG today on 07/19/2017 Subjective Date of service: 07/20/17 Principal diagnosis: Acute Hypoxemic Resp Failure; S/P Cardiac Arrest; Hyperosmolar Non-ketotic Interval history: Patient remains in ICU. Currently on 35% FiO2. Unresponsive. Status post trach and PEG yesterday Objective - Vital Signs Vital signs: Vital Signs - 12hr 07/19/17 07/19/17 07/19/17 22:10 23:00 23:06 Temperature Pulse Rate 89 92 H 91 H Respiratory 14 11 L 14 Rate Blood Pressure 129/68 129/68 O2 Sat by Pulse 100 100 100 Oximetry O2 Sat by Pulse Oximetry [ Assessment] 07/19/17 07/20/17 07/20/17 23:21 00:00 00:13 Temperature 97.9 F Pulse Rate 93 H 95 H Respiratory 11 L Rate Blood Pressure 139/75 139/75 O2 Sat by Pulse 100 Oximetry O2 Sat by Pulse Oximetry [ Assessment] 07/20/17 07/20/17 07/20/17 00:20 00:40 01:00 Temperature Pulse Rate 91 H 97 H Respiratory 14 Rate Blood Pressure 120/68 125/71 O2 Sat by Pulse 100 100 Oximetry O2 Sat by Pulse 100 Oximetry [ Assessment] 07/20/17 07/20/17 07/20/17 02:00 02:15 03:00 Temperature Pulse Rate 92 H 92 H 90 Respiratory 16 12 14 Rate Blood Pressure 120/68 125/72 O2 Sat by Pulse 100 100 100 Oximetry O2 Sat by Pulse Oximetry [ Assessment] 07/20/17 07/20/17 07/20/17 03:22 04:00 04:18 Temperature 98.6 F Pulse Rate 97 H 16 L Respiratory 11 L Rate Blood Pressure 120/73 124/64 O2 Sat by Pulse 100 100 Oximetry O2 Sat by Pulse Oximetry [ Assessment] 07/20/17 07/20/17 07/20/17 04:20 05:00 06:00 Temperature Pulse Rate 97 H 98 H 101 H Respiratory 13 13 11 L Rate Blood Pressure 123/73 128/71 O2 Sat by Pulse 100 100 100 Oximetry O2 Sat by Pulse Oximetry [ Assessment] 07/20/17 07/20/17 07/20/17 07:00 08:00 09:00 Temperature 98.5 F Pulse Rate 93 H 100 H 99 H Respiratory 16 14 12 Rate Blood Pressure 120/67 118/66 129/68 O2 Sat by Pulse 100 100 100 Oximetry O2 Sat by Pulse Oximetry [ Assessment] 07/20/17 09:57 Temperature Pulse Rate 100 H Respiratory Rate Blood Pressure 128/68 O2 Sat by Pulse Oximetry O2 Sat by Pulse Oximetry [ Assessment] - General Appearance General appearance: chronically ill, intubated, frail EENT: PERRL, mucous membranes moist Neck: other (tracheostomy tube in place. Connected to the ventilator. Right IJ PermCath in place) Respiratory: Present: Clear to Ascultation Cardiology: regular, normal heart rate Gastrointestinal: normoactive bowel sounds, other (PEG tube in place.) Integumentary: other (1+ edema in his upper extremities) - Lab 07/18/17 03:54 07/18/17 03:54 Most recent lab results Calcium 7.9 mg/dL (8.4-10.2) L 07/18/17 03:54 Phosphorus 1.90 mg/dL (2.5-4.5) L 07/15/17 12:52 Magnesium 1.80 mg/dL (1.7-2.3) 07/04/17 14:10
[2017-07-20] MEDS: NORVASC PO SCH (10:04)
--- NOTE | 2017-07-20 10:42 | Progress Note ---
Assessment and Plan Acute Hypoxemic Respiratory Failure on MVS Seizure Disorder s/p Cardiac Arrest ESRD on Dialysis Sepsis Syndrome Hyperosmolar non ketotic state Anemia Leucocytosis Acute Encephalopathy Thrombocytopenia - awaiting trach and PEG - H&H holding post transfusions - AMS still a rate limiting factor to safe extubation - s/p EEG - continue and complete antibiotics per ID recs - continue prn hydralazine and resumed home amlodipine dose (10mg qd) and coreg - keep set rate at 12/min - continue daily PSV trials as tolerated - continue aspiration precautions / addressing VAP bundle daily - continue to wean FiO2 for sats > 94% - continue enteral nutrition as tolerated - continue bronchodilators and pulmonary toilet - continue and adjust AB's per ID recs - continue glycemic control with SSI and levemir (target BG <180mg/dl) - continue GI & VTE prophylaxis - Continue to monitor platelet count while on heparin - continue other care per attending / other consultants - flu and pneumovax addressed per protocol ...the hope is that as sepsis resolves mental status will improve but that has not borne out so far ....30' CCT without overlap Subjective Date of service: 07/20/17 Principal diagnosis: Acute Hypoxemic Resp Failure; S/P Cardiac Arrest; Hyperosmolar Non-ketotic Interval history: Patient is seen today for: Acute Hypoxemic Resp Failure; S/P Cardiac Arrest; Hyperosmolar Non-ketotic Seen and examined at bedside; 24hour events reviewed; nursing and respiratory care staff consulted; no adverse overnight events reported to me; remains on MVS ; Objective Vital Signs - 12hr 07/19/17 07/19/17 07/19/17 23:00 23:06 23:21 Temperature 97.9 F Pulse Rate 92 H 91 H Respiratory 11 L 14 Rate Blood Pressure 129/68 129/68 O2 Sat by Pulse 100 100 Oximetry O2 Sat by Pulse Oximetry [ Assessment] 07/20/17 07/20/17 07/20/17 00:00 00:13 00:20 Temperature Pulse Rate 93 H 95 H 91 H Respiratory 11 L Rate Blood Pressure 139/75 139/75 120/68 O2 Sat by Pulse 100 100 Oximetry O2 Sat by Pulse Oximetry [ Assessment] 07/20/17 07/20/17 07/20/17 00:40 01:00 02:00 Temperature Pulse Rate 97 H 92 H Respiratory 14 16 Rate Blood Pressure 125/71 120/68 O2 Sat by Pulse 100 100 Oximetry O2 Sat by Pulse 100 Oximetry [ Assessment] 07/20/17 07/20/17 07/20/17 02:15 03:00 03:22 Temperature 98.6 F Pulse Rate 92 H 90 Respiratory 12 14 Rate Blood Pressure 125/72 O2 Sat by Pulse 100 100 Oximetry O2 Sat by Pulse Oximetry [ Assessment] 07/20/17 07/20/17 07/20/17 04:00 04:18 04:20 Temperature Pulse Rate 97 H 16 L 97 H Respiratory 11 L 13 Rate Blood Pressure 120/73 124/64 O2 Sat by Pulse 100 100 100 Oximetry O2 Sat by Pulse Oximetry [ Assessment] 07/20/17 07/20/17 07/20/17 05:00 06:00 07:00 Temperature Pulse Rate 98 H 101 H 93 H Respiratory 13 11 L 16 Rate Blood Pressure 123/73 128/71 120/67 O2 Sat by Pulse 100 100 100 Oximetry O2 Sat by Pulse Oximetry [ Assessment] 07/20/17 07/20/17 07/20/17 08:00 09:00 09:57 Temperature 98.5 F Pulse Rate 100 H 99 H 100 H Respiratory 14 12 Rate Blood Pressure 118/66 129/68 128/68 O2 Sat by Pulse 100 100 Oximetry O2 Sat by Pulse Oximetry [ Assessment] 07/20/17 07/20/17 07/20/17 10:04 10:14 10:32 Temperature Pulse Rate 97 H 101 H Respiratory 16 Rate Blood Pressure 122/68 122/68 122/65 O2 Sat by Pulse 100 100 Oximetry O2 Sat by Pulse 100 Oximetry [ Assessment] Constitutional: no acute distress, other (encephalopathic) Eyes: non-icteric ENT: oropharynx moist, other (ETT at 25cm TIKI) Neck: supple, no lymphadenopathy, JVD, other (no thyromegally) Effort: mildly labored Ascultation: Bilateral: diminished breath sounds (bases), rales Percussion: Right: dull (base), Bilateral: not dull Cardiovascular: regular rate and rhythm, other (no rubs / murmurs) Gastrointestinal: normoactive bowel sounds, soft, non-tender, non-distended, other (no HSM) Integumentary: normal Extremities: no cyanosis, no edema, pulses normal, no ischemia or petechiae Neurologic: pupils equal and round, unable to assess, other (no spontaneous limb movements) Psychiatric: other (unable to assess) CBC and BMP: 07/18/17 03:54 07/18/17 03:54 ABG, PT/INR, D-dimer: ABG POC ABG pH 7.511 (7.35-7.45) H 07/16/17 12:46 POC ABG pCO2 35.2 (35-45) 07/16/17 12:46 POC ABG pO2 155 (80-105) H 07/16/17 12:46 POC ABG HCO3 28.2 07/16/17 12:46 POC ABG Total CO2 29 07/16/17 12:46 POC ABG O2 Sat 100 07/16/17 12:46 PT/INR, D-dimer PT 13.1 Sec. (12.2-14.9) 07/18/17 09:04 INR 0.94 (0.87-1.13) 07/18/17 09:04 Abnormal lab findings: Abnormal Labs 07/02/17 07/02/17 07/02/17 15:03 15:12 17:49 WBC 13.5 H RBC 3.47 L Hgb 9.9 L Hct 33.1 L MCV 96 H MCHC 30 L RDW 15.4 H Plt Count 130 L Lymph % (Auto) [place] % (Auto) Lymph # [place] # Seg Neutrophils % Seg Neuts % (Manual) 95.0 H Lymphocytes % (Manual) 3.0 L Seg Neutrophils # Seg Neutrophils # Man 12.8 H Lymphocytes # (Manual) 0.4 L POC ABG pH POC ABG pCO2 POC ABG pO2 Sodium Potassium Chloride Carbon Dioxide BUN Creatinine Glucose POC Glucose > 500 H Lactic Acid 7.80 H* Calcium Ionized Calcium Phosphorus AST Alkaline Phosphatase Lactate Dehydrogenase CK-MB (CK-2) Troponin T C-Reactive Protein Total Protein Albumin LDL Cholesterol Direct PTH Intact Fluid Total Protein Salicylates Crossmatch Prewarmed 07/02/17 07/02/17 07/02/17 20:29 21:31 23:38 WBC RBC Hgb Hct MCV MCHC RDW Plt Count Lymph % (Auto) [place] % (Auto) Lymph # [place] # Seg Neutrophils % Seg Neuts % (Manual) Lymphocytes % (Manual) Seg Neutrophils # Seg Neutrophils # Man Lymphocytes # (Manual) POC ABG pH POC ABG pCO2 POC ABG pO2 Sodium 129 L 132 L Potassium Chloride 87.2 L 93.7 L Carbon Dioxide 18 L 15 L BUN 51 H 47 H Creatinine 4.3 H 4.1 H Glucose 950 H* 825 H* POC Glucose Lactic Acid 5.70 H* Calcium 7.1 L 6.8 L Ionized Calcium Phosphorus AST Alkaline Phosphatase Lactate Dehydrogenase CK-MB (CK-2) Troponin T C-Reactive Protein Total Protein Albumin LDL Cholesterol Direct PTH Intact Fluid Total Protein Salicylates Crossmatch Prewarmed 07/02/17 07/02/17 07/02/17 23:38 23:44 Unknown WBC RBC Hgb Hct MCV MCHC RDW Plt Count Lymph % (Auto) [place] % (Auto) Lymph # [place] # Seg Neutrophils % Seg Neuts % (Manual) Lymphocytes % (Manual) Seg Neutrophils # Seg Neutrophils # Man Lymphocytes # (Manual) POC ABG pH POC ABG pCO2 POC ABG pO2 Sodium 132 L 125 L D Potassium Chloride 94.6 L 85.6 L Carbon Dioxide 17 L 19 L D BUN 51 H 50 H Creatinine 4.1 H 4.4 H D Glucose 772 H* 1113 H* POC Glucose > 500 H Lactic Acid Calcium 6.7 L 7.2 L Ionized Calcium Phosphorus AST Alkaline Phosphatase 139 H Lactate Dehydrogenase CK-MB (CK-2) Troponin T C-Reactive Protein Total Protein 6.1 L Albumin 3.3 L LDL Cholesterol Direct PTH Intact Fluid Total Protein Salicylates Crossmatch Prewarmed 07/02/17 07/02/17 07/03/17 Unknown Unknown 01:00 WBC RBC Hgb Hct MCV MCHC RDW Plt Count Lymph % (Auto) [place] % (Auto) Lymph # [place] # Seg Neutrophils % Seg Neuts % (Manual) Lymphocytes % (Manual) Seg Neutrophils # Seg Neutrophils # Man Lymphocytes # (Manual) POC ABG pH POC ABG pCO2 POC ABG pO2 Sodium 134 L Potassium Chloride 96.4 L Carbon Dioxide 19 L BUN 50 H Creatinine 4.0 H Glucose 677 H* POC Glucose Lactic Acid 6.30 H* Calcium 6.6 L Ionized Calcium Phosphorus AST Alkaline Phosphatase Lactate Dehydrogenase CK-MB (CK-2) Troponin T C-Reactive Protein Total Protein Albumin LDL Cholesterol Direct PTH Intact Fluid Total Protein Salicylates < 0.3 L Crossmatch Prewarmed 07/03/17 07/03/17 07/03/17 01:04 02:15 02:15 WBC RBC Hgb Hct MCV MCHC RDW Plt Count Lymph % (Auto) [place] % (Auto) Lymph # [place] # Seg Neutrophils % Seg Neuts % (Manual) Lymphocytes % (Manual) Seg Neutrophils # Seg Neutrophils # Man Lymphocytes # (Manual) POC ABG pH POC ABG pCO2 POC ABG pO2 Sodium 134 L Potassium Chloride 97.6 L Carbon Dioxide 19 L BUN 50 H Creatinine 4.2 H Glucose 592 H* POC Glucose > 500 H Lactic Acid 4.30 H* Calcium 6.6 L Ionized Calcium Phosphorus AST Alkaline Phosphatase Lactate Dehydrogenase CK-MB (CK-2) Troponin T C-Reactive Protein Total Protein Albumin LDL Cholesterol Direct PTH Intact Fluid Total Protein Salicylates Crossmatch Prewarmed 07/03/17 07/03/17 07/03/17 02:21 03:25 04:10 WBC RBC Hgb Hct MCV MCHC RDW Plt Count Lymph % (Auto) [place] % (Auto) Lymph # [place] # Seg Neutrophils % Seg Neuts % (Manual) Lymphocytes % (Manual) Seg Neutrophils # Seg Neutrophils # Man Lymphocytes # (Manual) POC ABG pH POC ABG pCO2 POC ABG pO2 Sodium Potassium Chloride Carbon Dioxide 19 L BUN 50 H Creatinine 4.0 H Glucose 416 H POC Glucose 482 H > 500 H Lactic Acid Calcium 6.8 L Ionized Calcium Phosphorus AST Alkaline Phosphatase Lactate Dehydrogenase CK-MB (CK-2) Troponin T C-Reactive Protein Total Protein Albumin LDL Cholesterol Direct PTH Intact Fluid Total Protein Salicylates Crossmatch Prewarmed 07/03/17 07/03/17 07/03/17 04:30 04:36 05:33 WBC RBC Hgb Hct MCV MCHC RDW Plt Count Lymph % (Auto) [place] % (Auto) Lymph # [place] # Seg Neutrophils % Seg Neuts % (Manual) Lymphocytes % (Manual) Seg Neutrophils # Seg Neutrophils # Man Lymphocytes # (Manual) POC ABG pH 7.311 L POC ABG pCO2 33.5 L POC ABG pO2 73 L Sodium Potassium Chloride Carbon Dioxide BUN Creatinine Glucose POC Glucose 389 H 326 H Lactic Acid Calcium Ionized Calcium Phosphorus AST Alkaline Phosphatase Lactate Dehydrogenase CK-MB (CK-2) Troponin T C-Reactive Protein Total Protein Albumin LDL Cholesterol Direct PTH Intact Fluid Total Protein Salicylates Crossmatch Prewarmed 07/03/17 07/03/17 07/03/17 06:06 07:38 09:58 WBC RBC Hgb Hct MCV MCHC RDW Plt Count Lymph % (Auto) [place] % (Auto) Lymph # [place] # Seg Neutrophils % Seg Neuts % (Manual) Lymphocytes % (Manual) Seg Neutrophils # Seg Neutrophils # Man Lymphocytes # (Manual) POC ABG pH POC ABG pCO2 POC ABG pO2 Sodium Potassium Chloride Carbon Dioxide BUN Creatinine Glucose POC Glucose 247 H 118 H 52 L Lactic Acid Calcium Ionized Calcium Phosphorus AST Alkaline Phosphatase Lactate Dehydrogenase CK-MB (CK-2) Troponin T C-Reactive Protein Total Protein Albumin LDL Cholesterol Direct PTH Intact Fluid Total Protein Salicylates Crossmatch Prewarmed 07/03/17 07/03/17 07/03/17 11:00 13:16 15:02 WBC RBC Hgb Hct MCV MCHC RDW Plt Count Lymph % (Auto) [place] % (Auto) Lymph # [place] # Seg Neutrophils % Seg Neuts % (Manual) Lymphocytes % (Manual) Seg Neutrophils # Seg Neutrophils # Man Lymphocytes # (Manual) POC ABG pH POC ABG pCO2 POC ABG pO2 Sodium Potassium Chloride Carbon Dioxide BUN Creatinine Glucose POC Glucose 64 L 112 H 158 H Lactic Acid Calcium Ionized Calcium Phosphorus AST Alkaline Phosphatase Lactate Dehydrogenase CK-MB (CK-2) Troponin T C-Reactive Protein Total Protein Albumin LDL Cholesterol Direct PTH Intact Fluid Total Protein Salicylates Crossmatch Prewarmed 07/03/17 07/03/17 07/03/17 18:17 Unknown Unknown WBC RBC Hgb Hct MCV MCHC RDW Plt Count Lymph % (Auto) [place] % (Auto) Lymph # [place] # Seg Neutrophils % Seg Neuts % (Manual) Lymphocytes % (Manual) Seg Neutrophils # Seg Neutrophils # Man Lymphocytes # (Manual) POC ABG pH POC ABG pCO2 POC ABG pO2 Sodium Potassium Chloride Carbon Dioxide BUN Creatinine Glucose POC Glucose 131 H Lactic Acid 2.40 H* Calcium Ionized Calcium Phosphorus AST Alkaline Phosphatase Lactate Dehydrogenase CK-MB (CK-2) Troponin T C-Reactive Protein 1.90 H Total Protein Albumin LDL Cholesterol Direct PTH Intact Fluid Total Protein Salicylates Crossmatch Prewarmed 07/03/17 07/04/17 07/04/17 Unknown 00:13 02:04 WBC RBC Hgb Hct MCV MCHC RDW Plt Count Lymph % (Auto) [place] % (Auto) Lymph # [place] # Seg Neutrophils % Seg Neuts % (Manual) Lymphocytes % (Manual) Seg Neutrophils # Seg Neutrophils # Man Lymphocytes # (Manual) POC ABG pH POC ABG pCO2 POC ABG pO2 Sodium Potassium Chloride Carbon Dioxide BUN 52 H Creatinine 4.3 H Glucose POC Glucose 69 L 111 H Lactic Acid Calcium 7.2 L Ionized Calcium Phosphorus AST Alkaline Phosphatase Lactate Dehydrogenase CK-MB (CK-2) Troponin T C-Reactive Protein Total Protein Albumin LDL Cholesterol Direct PTH Intact Fluid Total Protein Salicylates Crossmatch Prewarmed 07/04/17 07/04/17 07/04/17 04:38 08:00 08:00 WBC 28.3 H RBC 3.55 L Hgb 10.3 L Hct 31.2 L MCV MCHC RDW 15.3 H Plt Count 101 L Lymph % (Auto) [place] % (Auto) Lymph # [place] # Seg Neutrophils % Seg Neuts % (Manual) Lymphocytes % (Manual) Seg Neutrophils # Seg Neutrophils # Man Lymphocytes # (Manual) POC ABG pH POC ABG pCO2 27.6 L POC ABG pO2 Sodium Potassium Chloride Carbon Dioxide 20 L BUN 62 H Creatinine 4.7 H Glucose POC Glucose Lactic Acid Calcium 7.0 L Ionized Calcium Phosphorus AST Alkaline Phosphatase Lactate Dehydrogenase CK-MB (CK-2) Troponin T C-Reactive Protein Total Protein Albumin LDL Cholesterol Direct PTH Intact Fluid Total Protein Salicylates Crossmatch Prewarmed 07/04/17 07/04/17 07/04/17 14:10 14:10 14:33 WBC RBC Hgb Hct MCV MCHC RDW Plt Count Lymph % (Auto) [place] % (Auto) Lymph # [place] # Seg Neutrophils % Seg Neuts % (Manual) Lymphocytes % (Manual) Seg Neutrophils # Seg Neutrophils # Man Lymphocytes # (Manual) POC ABG pH 7.474 H POC ABG pCO2 29.4 L POC ABG pO2 Sodium Potassium Chloride Carbon Dioxide BUN Creatinine Glucose POC Glucose Lactic Acid Calcium Ionized Calcium 4.6 L Phosphorus AST Alkaline Phosphatase Lactate Dehydrogenase CK-MB (CK-2) 4.3 H Troponin T 0.282 H* C-Reactive Protein Total Protein Albumin LDL Cholesterol Direct 22 L PTH Intact Fluid Total Protein Salicylates Crossmatch Prewarmed 07/04/17 07/04/17 07/04/17 17:26 20:40 23:34 WBC RBC Hgb Hct MCV MCHC RDW Plt Count Lymph % (Auto) [place] % (Auto) Lymph # [place] # Seg Neutrophils % Seg Neuts % (Manual) Lymphocytes % (Manual) Seg Neutrophils # Seg Neutrophils # Man Lymphocytes # (Manual) POC ABG pH POC ABG pCO2 POC ABG pO2 Sodium Potassium Chloride Carbon Dioxide BUN Creatinine Glucose POC Glucose 201 H 188 H Lactic Acid Calcium Ionized Calcium Phosphorus AST Alkaline Phosphatase Lactate Dehydrogenase CK-MB (CK-2) Troponin T 0.276 H* C-Reactive Protein Total Protein Albumin LDL Cholesterol Direct PTH Intact Fluid Total Protein Salicylates Crossmatch Prewarmed 07/05/17 07/05/17 07/05/17 05:42 07:50 11:52 WBC RBC Hgb Hct MCV MCHC RDW Plt Count Lymph % (Auto) [place] % (Auto) Lymph # [place] # Seg Neutrophils % Seg Neuts % (Manual) Lymphocytes % (Manual) Seg Neutrophils # Seg Neutrophils # Man Lymphocytes # (Manual) POC ABG pH POC ABG pCO2 POC ABG pO2 117 H Sodium Potassium Chloride Carbon Dioxide BUN Creatinine Glucose POC Glucose 126 H 110 H Lactic Acid Calcium Ionized Calcium Phosphorus AST Alkaline Phosphatase Lactate Dehydrogenase CK-MB (CK-2) Troponin T C-Reactive Protein Total Protein Albumin LDL Cholesterol Direct PTH Intact Fluid Total Protein Salicylates Crossmatch Prewarmed 07/05/17 07/05/17 07/05/17 12:40 17:51 18:12 WBC RBC Hgb Hct MCV MCHC RDW Plt Count Lymph % (Auto) [place] % (Auto) Lymph # [place] # Seg Neutrophils % Seg Neuts % (Manual) Lymphocytes % (Manual) Seg Neutrophils # Seg Neutrophils # Man Lymphocytes # (Manual) POC ABG pH POC ABG pCO2 POC ABG pO2 Sodium Potassium Chloride Carbon Dioxide BUN Creatinine Glucose POC Glucose 57 L 69 L Lactic Acid Calcium Ionized Calcium Phosphorus AST Alkaline Phosphatase Lactate Dehydrogenase CK-MB (CK-2) Troponin T 0.277 H* C-Reactive Protein Total Protein Albumin LDL Cholesterol Direct PTH Intact Fluid Total Protein Salicylates Crossmatch Prewarmed 07/05/17 07/05/17 07/05/17 Unknown Unknown Unknown WBC 22.2 H RBC 3.24 L Hgb 9.7 L Hct 28.6 L MCV MCHC RDW Plt Count 89 L Lymph % (Auto) [place] % (Auto) Lymph # [place] # Seg Neutrophils % Seg Neuts % (Manual) 89.0 H Lymphocytes % (Manual) 7.0 L Seg Neutrophils # Seg Neutrophils # Man 19.8 H Lymphocytes # (Manual) POC ABG pH POC ABG pCO2 POC ABG pO2 Sodium Potassium 3.5 L Chloride Carbon Dioxide BUN 37 H Creatinine 3.1 H Glucose 120 H POC Glucose Lactic Acid 2.30 H* Calcium 7.7 L Ionized Calcium Phosphorus AST Alkaline Phosphatase Lactate Dehydrogenase CK-MB (CK-2) Troponin T C-Reactive Protein Total Protein Albumin LDL Cholesterol Direct PTH Intact Fluid Total Protein Salicylates Crossmatch Prewarmed 07/05/17 07/06/17 07/06/17 Unknown 03:25 03:25 WBC 17.7 H RBC 3.14 L Hgb 9.3 L Hct 27.8 L MCV MCHC RDW 15.7 H Plt Count 82 L Lymph % (Auto) 2.5 L [place] % (Auto) Lymph # 0.4 L [place] # 1.1 H Seg Neutrophils % 90.0 H Seg Neuts % (Manual) Lymphocytes % (Manual) Seg Neutrophils # 15.9 H Seg Neutrophils # Man Lymphocytes # (Manual) POC ABG pH POC ABG pCO2 POC ABG pO2 Sodium Potassium 3.3 L Chloride Carbon Dioxide BUN 44 H Creatinine 3.6 H Glucose 132 H POC Glucose Lactic Acid Calcium 7.4 L Ionized Calcium Phosphorus AST Alkaline Phosphatase Lactate Dehydrogenase CK-MB (CK-2) Troponin T C-Reactive Protein 9.90 H Total Protein Albumin LDL Cholesterol Direct PTH Intact Fluid Total Protein Salicylates Crossmatch Prewarmed 07/06/17 07/06/17 07/06/17 04:19 05:24 08:30 WBC RBC Hgb Hct MCV MCHC RDW Plt Count Lymph % (Auto) [place] % (Auto) Lymph # [place] # Seg Neutrophils % Seg Neuts % (Manual) Lymphocytes % (Manual) Seg Neutrophils # Seg Neutrophils # Man Lymphocytes # (Manual) POC ABG pH POC ABG pCO2 34.3 L POC ABG pO2 Sodium Potassium Chloride Carbon Dioxide BUN Creatinine Glucose POC Glucose 174 H Lactic Acid Calcium Ionized Calcium Phosphorus AST Alkaline Phosphatase Lactate Dehydrogenase 880 H CK-MB (CK-2) Troponin T C-Reactive Protein Total Protein 4.9 L Albumin LDL Cholesterol Direct PTH Intact Fluid Total Protein Salicylates Crossmatch Prewarmed 07/06/17 07/06/17 07/06/17 11:13 17:14 23:38 WBC RBC Hgb Hct MCV MCHC RDW Plt Count Lymph % (Auto) [place] % (Auto) Lymph # [place] # Seg Neutrophils % Seg Neuts % (Manual) Lymphocytes % (Manual) Seg Neutrophils # Seg Neutrophils # Man Lymphocytes # (Manual) POC ABG pH POC ABG pCO2 POC ABG pO2 Sodium Potassium Chloride Carbon Dioxide BUN Creatinine Glucose POC Glucose 216 H 211 H 122 H Lactic Acid Calcium Ionized Calcium Phosphorus AST Alkaline Phosphatase Lactate Dehydrogenase CK-MB (CK-2) Troponin T C-Reactive Protein Total Protein Albumin LDL Cholesterol Direct PTH Intact Fluid Total Protein Salicylates Crossmatch Prewarmed 07/06/17 07/07/17 07/07/17 Unknown 04:38 05:00 WBC 16.1 H RBC 3.00 L Hgb 8.9 L Hct 26.6 L MCV MCHC RDW 15.6 H Plt Count 106 L Lymph % (Auto) 4.1 L [place] % (Auto) 8.0 H Lymph # 0.7 L [place] # 1.3 H Seg Neutrophils % 86.6 H Seg Neuts % (Manual) Lymphocytes % (Manual) Seg Neutrophils # 13.9 H Seg Neutrophils # Man Lymphocytes # (Manual) POC ABG pH 7.455 H POC ABG pCO2 POC ABG pO2 134 H Sodium Potassium Chloride Carbon Dioxide BUN Creatinine Glucose POC Glucose Lactic Acid Calcium Ionized Calcium Phosphorus AST Alkaline Phosphatase Lactate Dehydrogenase CK-MB (CK-2) Troponin T C-Reactive Protein Total Protein Albumin LDL Cholesterol Direct PTH Intact Fluid Total Protein < 3.0 L Salicylates Crossmatch Prewarmed 07/07/17 07/07/17 07/07/17 05:00 05:17 11:33 WBC RBC Hgb Hct MCV MCHC RDW Plt Count Lymph % (Auto) [place] % (Auto) Lymph # [place] # Seg Neutrophils % Seg Neuts % (Manual) Lymphocytes % (Manual) Seg Neutrophils # Seg Neutrophils # Man Lymphocytes # (Manual) POC ABG pH POC ABG pCO2 POC ABG pO2 Sodium Potassium Chloride Carbon Dioxide BUN 30 H Creatinine 2.8 H Glucose 188 H POC Glucose 189 H 275 H Lactic Acid Calcium 7.9 L Ionized Calcium Phosphorus AST Alkaline Phosphatase Lactate Dehydrogenase CK-MB (CK-2) Troponin T C-Reactive Protein Total Protein Albumin LDL Cholesterol Direct PTH Intact Fluid Total Protein Salicylates Crossmatch Prewarmed 07/07/17 07/07/17 07/07/17 16:04 17:08 23:45 WBC RBC Hgb Hct MCV MCHC RDW Plt Count Lymph % (Auto) [place] % (Auto) Lymph # [place] # Seg Neutrophils % Seg Neuts % (Manual) Lymphocytes % (Manual) Seg Neutrophils # Seg Neutrophils # Man Lymphocytes # (Manual) POC ABG pH POC ABG pCO2 POC ABG pO2 126 H Sodium Potassium Chloride Carbon Dioxide BUN Creatinine Glucose POC Glucose 241 H 118 H Lactic Acid Calcium Ionized Calcium Phosphorus AST Alkaline Phosphatase Lactate Dehydrogenase CK-MB (CK-2) Troponin T C-Reactive Protein Total Protein Albumin LDL Cholesterol Direct PTH Intact Fluid Total Protein Salicylates Crossmatch Prewarmed 07/08/17 07/08/17 07/08/17 05:30 05:54 06:12 WBC 17.0 H RBC 3.27 L Hgb 9.5 L Hct 29.1 L MCV MCHC RDW 15.6 H Plt Count 133 L Lymph % (Auto) 4.6 L [place] % (Auto) 9.2 H Lymph # 0.8 L [place] # 1.6 H Seg Neutrophils % 83.9 H Seg Neuts % (Manual) Lymphocytes % (Manual) Seg Neutrophils # 14.3 H Seg Neutrophils # Man Lymphocytes # (Manual) POC ABG pH 7.477 H POC ABG pCO2 POC ABG pO2 118 H Sodium Potassium Chloride Carbon Dioxide BUN Creatinine Glucose POC Glucose 199 H Lactic Acid Calcium Ionized Calcium Phosphorus AST Alkaline Phosphatase Lactate Dehydrogenase CK-MB (CK-2) Troponin T C-Reactive Protein Total Protein Albumin LDL Cholesterol Direct PTH Intact Fluid Total Protein Salicylates Crossmatch Prewarmed 07/08/17 07/08/17 07/08/17 06:12 11:37 17:21 WBC RBC Hgb Hct MCV MCHC RDW Plt Count Lymph % (Auto) [place] % (Auto) Lymph # [place] # Seg Neutrophils % Seg Neuts % (Manual) Lymphocytes % (Manual) Seg Neutrophils # Seg Neutrophils # Man Lymphocytes # (Manual) POC ABG pH POC ABG pCO2 POC ABG pO2 Sodium Potassium Chloride Carbon Dioxide BUN 44 H Creatinine 3.4 H Glucose 190 H POC Glucose 236 H 186 H Lactic Acid Calcium 7.8 L Ionized Calcium Phosphorus AST Alkaline Phosphatase Lactate Dehydrogenase CK-MB (CK-2) Troponin T C-Reactive Protein Total Protein Albumin LDL Cholesterol Direct PTH Intact Fluid Total Protein Salicylates Crossmatch Prewarmed 07/08/17 07/09/17 07/09/17 23:09 04:27 05:02 WBC 17.8 H RBC 2.88 L Hgb 8.5 L Hct 25.6 L MCV MCHC RDW 15.5 H Plt Count Lymph % (Auto) 4.6 L [place] % (Auto) 10.2 H Lymph # 0.8 L [place] # 1.8 H Seg Neutrophils % 83.4 H Seg Neuts % (Manual) Lymphocytes % (Manual) Seg Neutrophils # 14.8 H Seg Neutrophils # Man Lymphocytes # (Manual) POC ABG pH POC ABG pCO2 POC ABG pO2 132 H Sodium Potassium Chloride Carbon Dioxide BUN Creatinine Glucose POC Glucose 203 H Lactic Acid Calcium Ionized Calcium Phosphorus AST Alkaline Phosphatase Lactate Dehydrogenase CK-MB (CK-2) Troponin T C-Reactive Protein Total Protein Albumin LDL Cholesterol Direct PTH Intact Fluid Total Protein Salicylates Crossmatch Prewarmed 07/09/17 07/09/17 07/09/17 05:02 05:33 12:07 WBC RBC Hgb Hct MCV MCHC RDW Plt Count Lymph % (Auto) [place] % (Auto) Lymph # [place] # Seg Neutrophils % Seg Neuts % (Manual) Lymphocytes % (Manual) Seg Neutrophils # Seg Neutrophils # Man Lymphocytes # (Manual) POC ABG pH POC ABG pCO2 POC ABG pO2 Sodium Potassium Chloride Carbon Dioxide BUN 61 H Creatinine 4.0 H Glucose 183 H POC Glucose 177 H 276 H Lactic Acid Calcium 7.6 L Ionized Calcium Phosphorus AST Alkaline Phosphatase Lactate Dehydrogenase CK-MB (CK-2) Troponin T C-Reactive Protein Total Protein Albumin LDL Cholesterol Direct PTH Intact Fluid Total Protein Salicylates Crossmatch Prewarmed 07/09/17 07/10/17 07/10/17 18:54 03:50 03:50 WBC 16.8 H RBC 2.77 L Hgb 8.1 L Hct 24.9 L MCV MCHC RDW 15.7 H Plt Count Lymph % (Auto) 4.3 L [place] % (Auto) 10.8 H Lymph # 0.7 L [place] # 1.8 H Seg Neutrophils % 83.5 H Seg Neuts % (Manual) Lymphocytes % (Manual) Seg Neutrophils # 14.1 H Seg Neutrophils # Man Lymphocytes # (Manual) POC ABG pH POC ABG pCO2 POC ABG pO2 Sodium Potassium Chloride Carbon Dioxide BUN 31 H Creatinine 2.5 H Glucose 129 H POC Glucose 178 H Lactic Acid Calcium 8.1 L Ionized Calcium Phosphorus AST Alkaline Phosphatase Lactate Dehydrogenase CK-MB (CK-2) Troponin T C-Reactive Protein Total Protein Albumin LDL Cholesterol Direct PTH Intact Fluid Total Protein Salicylates Crossmatch Prewarmed 07/10/17 07/10/17 07/10/17 05:41 10:02 10:07 WBC 16.3 H RBC 2.66 L Hgb 7.9 L Hct 23.5 L MCV MCHC RDW 16.1 H Plt Count Lymph % (Auto) 4.8 L [place] % (Auto) 9.6 H Lymph # 0.8 L [place] # 1.6 H Seg Neutrophils % 84.0 H Seg Neuts % (Manual) Lymphocytes % (Manual) Seg Neutrophils # 13.7 H Seg Neutrophils # Man Lymphocytes # (Manual) POC ABG pH POC ABG pCO2 POC ABG pO2 Sodium Potassium Chloride Carbon Dioxide BUN 35 H Creatinine 2.6 H Glucose 196 H POC Glucose 160 H Lactic Acid Calcium 7.9 L Ionized Calcium Phosphorus AST Alkaline Phosphatase Lactate Dehydrogenase CK-MB (CK-2) Troponin T C-Reactive Protein Total Protein Albumin LDL Cholesterol Direct PTH Intact Fluid Total Protein Salicylates Crossmatch Prewarmed 07/10/17 07/10/17 07/10/17 11:21 14:14 16:36 WBC RBC Hgb Hct MCV MCHC RDW Plt Count Lymph % (Auto) [place] % (Auto) Lymph # [place] # Seg Neutrophils % Seg Neuts % (Manual) Lymphocytes % (Manual) Seg Neutrophils # Seg Neutrophils # Man Lymphocytes # (Manual) POC ABG pH POC ABG pCO2 POC ABG pO2 138 H Sodium Potassium Chloride Carbon Dioxide BUN Creatinine Glucose POC Glucose 206 H 133 H Lactic Acid Calcium Ionized Calcium Phosphorus AST Alkaline Phosphatase Lactate Dehydrogenase CK-MB (CK-2) Troponin T C-Reactive Protein Total Protein Albumin LDL Cholesterol Direct PTH Intact Fluid Total Protein Salicylates Crossmatch [facility] 07/11/17 07/11/17 07/11/17 04:08 08:19 13:58 WBC RBC Hgb Hct MCV MCHC RDW Plt Count Lymph % (Auto) [place] % (Auto) Lymph # [place] # Seg Neutrophils % Seg Neuts % (Manual) Lymphocytes % (Manual) Seg Neutrophils # Seg Neutrophils # Man Lymphocytes # (Manual) POC ABG pH POC ABG pCO2 POC ABG pO2 Sodium Potassium Chloride Carbon Dioxide BUN 45 H Creatinine 3.1 H Glucose POC Glucose 155 H 199 H Lactic Acid Calcium 7.8 L Ionized Calcium Phosphorus AST Alkaline Phosphatase Lactate Dehydrogenase CK-MB (CK-2) Troponin T C-Reactive Protein Total Protein Albumin LDL Cholesterol Direct PTH Intact Fluid Total Protein Salicylates Crossmatch [facility] 07/11/17 07/11/17 07/12/17 17:52 23:39 04:37 WBC 12.9 H RBC 2.62 L Hgb 7.6 L Hct 24.0 L MCV MCHC RDW 16.0 H Plt Count Lymph % (Auto) 4.8 L [place] % (Auto) 8.6 H Lymph # 0.6 L [place] # 1.1 H Seg Neutrophils % 84.8 H Seg Neuts % (Manual) Lymphocytes % (Manual) Seg Neutrophils # 10.9 H Seg Neutrophils # Man Lymphocytes # (Manual) POC ABG pH POC ABG pCO2 POC ABG pO2 Sodium Potassium Chloride Carbon Dioxide BUN Creatinine Glucose POC Glucose 133 H 129 H Lactic Acid Calcium Ionized Calcium Phosphorus AST Alkaline Phosphatase Lactate Dehydrogenase CK-MB (CK-2) Troponin T C-Reactive Protein Total Protein Albumin LDL Cholesterol Direct PTH Intact Fluid Total Protein Salicylates Crossmatch [facility] 07/12/17 07/12/17 07/12/17 04:37 05:39 11:41 WBC RBC Hgb Hct MCV MCHC RDW Plt Count Lymph % (Auto) [place] % (Auto) Lymph # [place] # Seg Neutrophils % Seg Neuts % (Manual) Lymphocytes % (Manual) Seg Neutrophils # Seg Neutrophils # Man Lymphocytes # (Manual) POC ABG pH POC ABG pCO2 POC ABG pO2 Sodium Potassium Chloride Carbon Dioxide BUN 29 H Creatinine 2.1 H Glucose 137 H POC Glucose 149 H 203 H Lactic Acid Calcium 8.0 L Ionized Calcium Phosphorus AST Alkaline Phosphatase Lactate Dehydrogenase CK-MB (CK-2) Troponin T C-Reactive Protein Total Protein Albumin LDL Cholesterol Direct PTH Intact Fluid Total Protein Salicylates Crossmatch [facility] 07/13/17 07/13/17 07/13/17 04:46 05:35 12:14 WBC RBC Hgb Hct MCV MCHC RDW Plt Count Lymph % (Auto) [place] % (Auto) Lymph # [place] # Seg Neutrophils % Seg Neuts % (Manual) Lymphocytes % (Manual) Seg Neutrophils # Seg Neutrophils # Man Lymphocytes # (Manual) POC ABG pH POC ABG pCO2 POC ABG pO2 Sodium Potassium Chloride Carbon Dioxide BUN 46 H Creatinine 2.8 H Glucose 128 H POC Glucose 139 H 243 H Lactic Acid Calcium 7.5 L Ionized Calcium Phosphorus AST Alkaline Phosphatase Lactate Dehydrogenase CK-MB (CK-2) Troponin T C-Reactive Protein Total Protein Albumin LDL Cholesterol Direct PTH Intact Fluid Total Protein Salicylates Crossmatch [facility] 07/13/17 07/13/17 07/14/17 17:33 23:48 05:32 WBC RBC Hgb Hct MCV MCHC RDW Plt Count Lymph % (Auto) [place] % (Auto) Lymph # [place] # Seg Neutrophils % Seg Neuts % (Manual) Lymphocytes % (Manual) Seg Neutrophils # Seg Neutrophils # Man Lymphocytes # (Manual) POC ABG pH POC ABG pCO2 POC ABG pO2 Sodium Potassium Chloride Carbon Dioxide BUN Creatinine Glucose POC Glucose 193 H 133 H 143 H Lactic Acid Calcium Ionized Calcium Phosphorus AST Alkaline Phosphatase Lactate Dehydrogenase CK-MB (CK-2) Troponin T C-Reactive Protein Total Protein Albumin LDL Cholesterol Direct PTH Intact Fluid Total Protein Salicylates Crossmatch [facility] 07/14/17 07/14/17 07/15/17 11:43 17:49 05:09 WBC RBC Hgb Hct MCV MCHC RDW Plt Count Lymph % (Auto) [place] % (Auto) Lymph # [place] # Seg Neutrophils % Seg Neuts % (Manual) Lymphocytes % (Manual) Seg Neutrophils # Seg Neutrophils # Man Lymphocytes # (Manual) POC ABG pH POC ABG pCO2 POC ABG pO2 Sodium Potassium Chloride Carbon Dioxide BUN Creatinine Glucose POC Glucose 143 H 195 H 61 L Lactic Acid Calcium Ionized Calcium Phosphorus AST Alkaline Phosphatase Lactate Dehydrogenase CK-MB (CK-2) Troponin T C-Reactive Protein Total Protein Albumin LDL Cholesterol Direct PTH Intact Fluid Total Protein Salicylates Crossmatch [facility] 07/15/17 07/15/17 07/15/17 12:00 12:52 12:52 WBC 13.6 H RBC 1.76 L Hgb 5.2 L* Hct 15.8 L* MCV MCHC RDW 16.1 H Plt Count Lymph % (Auto) 4.7 L [place] % (Auto) 8.3 H Lymph # 0.6 L [place] # 1.1 H Seg Neutrophils % 85.4 H Seg Neuts % (Manual) Lymphocytes % (Manual) Seg Neutrophils # 11.7 H Seg Neutrophils # Man Lymphocytes # (Manual) POC ABG pH POC ABG pCO2 POC ABG pO2 Sodium Potassium Chloride Carbon Dioxide BUN 54 H Creatinine 2.7 H Glucose 157 H POC Glucose 164 H Lactic Acid Calcium 7.1 L Ionized Calcium Phosphorus 1.90 L AST 50 H Alkaline Phosphatase 152 H Lactate Dehydrogenase CK-MB (CK-2) Troponin T C-Reactive Protein Total Protein 4.7 L Albumin 1.6 L LDL Cholesterol Direct PTH Intact Fluid Total Protein Salicylates Crossmatch [facility] 07/15/17 07/15/17 07/15/17 12:52 14:49 14:49 WBC RBC Hgb 6.5 L Hct 19.6 L* MCV MCHC RDW Plt Count Lymph % (Auto) [place] % (Auto) Lymph # [place] # Seg Neutrophils % Seg Neuts % (Manual) Lymphocytes % (Manual) Seg Neutrophils # Seg Neutrophils # Man Lymphocytes # (Manual) POC ABG pH POC ABG pCO2 POC ABG pO2 Sodium Potassium Chloride Carbon Dioxide BUN Creatinine Glucose POC Glucose Lactic Acid Calcium Ionized Calcium Phosphorus AST Alkaline Phosphatase Lactate Dehydrogenase CK-MB (CK-2) Troponin T C-Reactive Protein Total Protein Albumin LDL Cholesterol Direct PTH Intact 159.8 H Fluid Total Protein Salicylates Crossmatch [facility] See Detail 07/15/17 07/15/17 07/16/17 17:54 23:45 02:33 WBC RBC Hgb 7.0 L Hct 20.6 L MCV MCHC RDW Plt Count Lymph % (Auto) [place] % (Auto) Lymph # [place] # Seg Neutrophils % Seg Neuts % (Manual) Lymphocytes % (Manual) Seg Neutrophils # Seg Neutrophils # Man Lymphocytes # (Manual) POC ABG pH POC ABG pCO2 POC ABG pO2 Sodium Potassium Chloride Carbon Dioxide BUN Creatinine Glucose POC Glucose 216 H 126 H Lactic Acid Calcium Ionized Calcium Phosphorus AST Alkaline Phosphatase Lactate Dehydrogenase CK-MB (CK-2) Troponin T C-Reactive Protein Total Protein Albumin LDL Cholesterol Direct PTH Intact Fluid Total Protein Salicylates Crossmatch [facility] 07/16/17 07/16/17 07/16/17 05:32 08:32 11:59 WBC RBC Hgb 6.2 L Hct 18.9 L* MCV MCHC RDW Plt Count Lymph % (Auto) [place] % (Auto) Lymph # [place] # Seg Neutrophils % Seg Neuts % (Manual) Lymphocytes % (Manual) Seg Neutrophils # Seg Neutrophils # Man Lymphocytes # (Manual) POC ABG pH POC ABG pCO2 POC ABG pO2 Sodium Potassium Chloride Carbon Dioxide BUN Creatinine Glucose POC Glucose 174 H 206 H Lactic Acid Calcium Ionized Calcium Phosphorus AST Alkaline Phosphatase Lactate Dehydrogenase CK-MB (CK-2) Troponin T C-Reactive Protein Total Protein Albumin LDL Cholesterol Direct PTH Intact Fluid Total Protein Salicylates Crossmatch [facility] 07/16/17 07/16/17 07/16/17 12:46 18:04 21:23 WBC RBC Hgb 7.4 L Hct 22.1 L MCV MCHC RDW Plt Count Lymph % (Auto) [place] % (Auto) Lymph # [place] # Seg Neutrophils % Seg Neuts % (Manual) Lymphocytes % (Manual) Seg Neutrophils # Seg Neutrophils # Man Lymphocytes # (Manual) POC ABG pH 7.511 H POC ABG pCO2 POC ABG pO2 155 H Sodium Potassium Chloride Carbon Dioxide BUN Creatinine Glucose POC Glucose 52 L Lactic Acid Calcium Ionized Calcium Phosphorus AST Alkaline Phosphatase Lactate Dehydrogenase CK-MB (CK-2) Troponin T C-Reactive Protein Total Protein Albumin LDL Cholesterol Direct PTH Intact Fluid Total Protein Salicylates Crossmatch [facility] 07/16/17 07/17/17 07/17/17 23:51 05:01 05:17 WBC RBC Hgb Hct MCV MCHC RDW Plt Count Lymph % (Auto) [place] % (Auto) Lymph # [place] # Seg Neutrophils % Seg Neuts % (Manual) Lymphocytes % (Manual) Seg Neutrophils # Seg Neutrophils # Man Lymphocytes # (Manual) POC ABG pH POC ABG pCO2 POC ABG pO2 Sodium Potassium Chloride Carbon Dioxide BUN Creatinine Glucose 103 H POC Glucose 109 H < 40 L Lactic Acid Calcium Ionized Calcium Phosphorus AST Alkaline Phosphatase Lactate Dehydrogenase CK-MB (CK-2) Troponin T C-Reactive Protein Total Protein Albumin LDL Cholesterol Direct PTH Intact Fluid Total Protein Salicylates Crossmatch [facility] 07/17/17 07/17/17 07/17/17 12:39 17:35 17:44 WBC RBC Hgb 8.9 L Hct 26.7 L MCV MCHC RDW Plt Count Lymph % (Auto) [place] % (Auto) Lymph # [place] # Seg Neutrophils % Seg Neuts % (Manual) Lymphocytes % (Manual) Seg Neutrophils # Seg Neutrophils # Man Lymphocytes # (Manual) POC ABG pH POC ABG pCO2 POC ABG pO2 Sodium Potassium Chloride Carbon Dioxide BUN Creatinine Glucose POC Glucose 182 H 194 H Lactic Acid Calcium Ionized Calcium Phosphorus AST Alkaline Phosphatase Lactate Dehydrogenase CK-MB (CK-2) Troponin T C-Reactive Protein Total Protein Albumin LDL Cholesterol Direct PTH Intact Fluid Total Protein Salicylates Crossmatch [facility] 07/17/17 07/18/17 07/18/17 23:32 03:54 03:54 WBC 14.9 H RBC 2.78 L Hgb 8.9 L Hct 26.2 L MCV MCHC RDW 15.9 H Plt Count Lymph % (Auto) [place] % (Auto) Lymph # [place] # Seg Neutrophils % Seg Neuts % (Manual) Lymphocytes % (Manual) Seg Neutrophils # Seg Neutrophils # Man Lymphocytes # (Manual) POC ABG pH POC ABG pCO2 POC ABG pO2 Sodium Potassium Chloride Carbon Dioxide BUN 43 H Creatinine 2.6 H Glucose 219 H POC Glucose 190 H Lactic Acid Calcium 7.9 L Ionized Calcium Phosphorus AST Alkaline Phosphatase Lactate Dehydrogenase CK-MB (CK-2) Troponin T C-Reactive Protein Total Protein Albumin LDL Cholesterol Direct PTH Intact Fluid Total Protein Salicylates Crossmatch [facility] 07/18/17 07/18/17 07/18/17 05:37 12:28 17:44 WBC RBC Hgb Hct MCV MCHC RDW Plt Count Lymph % (Auto) [place] % (Auto) Lymph # [place] # Seg Neutrophils % Seg Neuts % (Manual) Lymphocytes % (Manual) Seg Neutrophils # Seg Neutrophils # Man Lymphocytes # (Manual) POC ABG pH POC ABG pCO2 POC ABG pO2 Sodium Potassium Chloride Carbon Dioxide BUN Creatinine Glucose POC Glucose 263 H 211 H 213 H Lactic Acid Calcium Ionized Calcium Phosphorus AST Alkaline Phosphatase Lactate Dehydrogenase CK-MB (CK-2) Troponin T C-Reactive Protein Total Protein Albumin LDL Cholesterol Direct PTH Intact Fluid Total Protein Salicylates Crossmatch [facility] 07/19/17 07/19/17 07/19/17 00:07 11:32 18:09 WBC RBC Hgb Hct MCV MCHC RDW Plt Count Lymph % (Auto) [place] % (Auto) Lymph # [place] # Seg Neutrophils % Seg Neuts % (Manual) Lymphocytes % (Manual) Seg Neutrophils # Seg Neutrophils # Man Lymphocytes # (Manual) POC ABG pH POC ABG pCO2 POC ABG pO2 Sodium Potassium Chloride Carbon Dioxide BUN Creatinine Glucose POC Glucose 68 L 129 H 176 H Lactic Acid Calcium Ionized Calcium Phosphorus AST Alkaline Phosphatase Lactate Dehydrogenase CK-MB (CK-2) Troponin T C-Reactive Protein Total Protein Albumin LDL Cholesterol Direct PTH Intact Fluid Total Protein Salicylates Crossmatch [facility] 07/19/17 07/20/17 23:59 05:29 WBC RBC Hgb Hct MCV MCHC RDW Plt Count Lymph % (Auto) [place] % (Auto) Lymph # [place] # Seg Neutrophils % Seg Neuts % (Manual) Lymphocytes % (Manual) Seg Neutrophils # Seg Neutrophils # Man Lymphocytes # (Manual) POC ABG pH POC ABG pCO2 POC ABG pO2 Sodium Potassium Chloride Carbon Dioxide BUN Creatinine Glucose POC Glucose 204 H 211 H Lactic Acid Calcium Ionized Calcium Phosphorus AST Alkaline Phosphatase Lactate Dehydrogenase CK-MB (CK-2) Troponin T C-Reactive Protein Total Protein Albumin LDL Cholesterol Direct PTH Intact Fluid Total Protein Salicylates Crossmatch [facility] Allied health notes reviewed: nursing
[2017-07-20 13:05] LABS: ISTAT Base Excess 5; ISTAT HCO3 29.3; ISTAT PCO2 44.6 (35-45); ISTAT PH 7.425 (7.35-7.45); ISTAT PO2 128 (80-105); ISTAT SO2 99; ISTAT TCO2 31
--- NOTE | 2017-07-20 14:49 | Progress Note ---
Assessment and Plan Status post trach and PEG. No further surgical intervention is needed at this time. Continue supportive care. Wean ventilator as tolerated. Will sign off. Please call if any questions. Subjective Date of service: 07/20/17 Patient Reports: Positive: other (status post trach and PEG) Objective Vital Signs - 12hr 07/20/17 07/20/17 07/20/17 03:00 03:22 04:00 Temperature 98.6 F Pulse Rate 90 97 H Respiratory 14 11 L Rate Blood Pressure 125/72 120/73 O2 Sat by Pulse 100 100 Oximetry O2 Sat by Pulse Oximetry [ Assessment] 07/20/17 07/20/17 07/20/17 04:18 04:20 05:00 Temperature Pulse Rate 16 L 97 H 98 H Respiratory 13 13 Rate Blood Pressure 124/64 123/73 O2 Sat by Pulse 100 100 100 Oximetry O2 Sat by Pulse Oximetry [ Assessment] 07/20/17 07/20/17 07/20/17 06:00 07:00 08:00 Temperature 98.5 F Pulse Rate 101 H 93 H 100 H Respiratory 11 L 16 14 Rate Blood Pressure 128/71 120/67 118/66 O2 Sat by Pulse 100 100 100 Oximetry O2 Sat by Pulse Oximetry [ Assessment] 07/20/17 07/20/17 07/20/17 09:00 09:57 10:01 Temperature Pulse Rate 99 H 100 H 99 H Respiratory 12 15 Rate Blood Pressure 129/68 128/68 122/68 O2 Sat by Pulse 100 100 Oximetry O2 Sat by Pulse Oximetry [ Assessment] 07/20/17 07/20/17 07/20/17 10:04 10:14 10:32 Temperature Pulse Rate 97 H 101 H Respiratory 16 Rate Blood Pressure 122/68 122/68 122/65 O2 Sat by Pulse 100 100 Oximetry O2 Sat by Pulse 100 Oximetry [ Assessment] 07/20/17 07/20/17 11:00 12:32 Temperature Pulse Rate 95 H 85 Respiratory 12 11 L Rate Blood Pressure 113/63 108/58 O2 Sat by Pulse 100 100 Oximetry O2 Sat by Pulse Oximetry [ Assessment] - General physical appearance no distress - Neck trachea midline, other (trach in place no bleeding noted) - Respiratory normal respiratory effort - Abdomen soft, not tender, not distended, other (tube in place no bleeding noted) - Labs 07/18/17 03:54 07/18/17 03:54
--- NOTE | 2017-07-20 20:15 | Progress Note ---
Assessment and Plan Assessment and plan: 76 YO Male [facility] Resident with HTN, DM, ESRD on HD(M,W,F), Severe Malnutrition, presents to ED for evaluation. Pt unable to provide history. Pt found to have new onset seizure at [facility] that was witnessed by [facility] staff. EMS was notified and upon arrival patient was found to by stuporous. Pt transported to [facility] for evaluation. Pt seen and evaluated in ED and found to be in respiratory distress. Pt subsequently found to have asystolic arrest. Pt treated IAW ACLS protocol with return of perfusing cardiac rhythm. Pt found to have Acute respiratory failure and was intubated and placed on vent support. Pt also found to be hypotensive after cardiac arrest and placed on pressor support. Serum glucose found to be above 1000, and patient was in DKA. DKA protocol initiated. Pt admitted to ICU. Anoxic brain injury Acute Respiratory Failure, hypoxic Patient is intubated and on mechanical ventilation, off sedation Status post cardiac arrest Seizure disorder Sepsis with hypotension History of diarrhea DKA with diabetic coma - Patient was treated according to DKA protocol now resolved and on long-acting insulin ESRD on HD - Chronic respiratory failure on MV> 96 hours sp trache and PEG, planned for placement Severe Anemia - S/p blood transfusion - Will monitor H&H closely The high probability of a clinically significant, sudden or life threatening deterioration of the [CV, neurology, renal] system(s) required my full and direct attention, intervention and personal management. The aggregate critical care time was [32] minutes. This time is in addition to time spent performing reported procedures but includes the following: [x] Data Review and interpretation [x] Patient assessment and monitoring of vital signs [x] Documentation [x] Medication orders and management History Interval history: Patient was seen and evaluated this morning, patient in non communicative. Patient is off sedation. no vomiting, no seizures Hospitalist Physical - Physical exam Narrative exam: - Physical exam Narrative exam: Patient is intubated and on mechanical ventilation. The patient appeared well nourished and normally developed. Vital signs as documented. Head exam is unremarkable. No scleral icterus . Neck is without jugular venous distension, thyromegaly, or carotid bruits. Lungs are clear to auscultation. Cardiac exam reveals regular rate and Rhythm. First and second heart sounds normal. No murmurs, rubs or gallops. Abdominal exam reveals normal bowel sounds, no masses, no organomegaly and no aortic enlargement. Extremities are nonedematous and both femoral and pedal pulses are normal. 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 He is off sedation. - Constitutional Vitals: Temp Pulse Resp BP Pulse Ox 97.8 F 92 H 14 120/59 100 07/20/17 16:00 07/20/17 20:00 07/20/17 20:00 07/20/17 20:00 07/20/17 20:00 General appearance: Present: mild distress, other (intubated, unresponsive) Results - Labs CBC & Chem 7: 07/18/17 03:54 07/18/17 03:54 Labs: Laboratory Last Values WBC 14.9 K/mm3 (4.5-11.0) H 07/18/17 03:54 RBC 2.78 M/mm3 (3.65-5.03) L 07/18/17 03:54 Hgb 8.9 gm/dl (11.8-15.2) L 07/18/17 03:54 Hct 26.2 % (35.5-45.6) L 07/18/17 03:54 MCV 94 fl (84-94) 07/18/17 03:54 MCH 32 pg (28-32) 07/18/17 03:54 MCHC 34 % (32-34) 07/18/17 03:54 RDW 15.9 % (13.2-15.2) H 07/18/17 03:54 Plt Count 285 K/mm3 (140-440) 07/18/17 03:54 Lymph % (Auto) Toll Collector 07/18/17 03:54 [place] % (Auto) Toll Collector 07/18/17 03:54 Eos % (Auto) Toll Collector 07/18/17 03:54 Baso % (Auto) Toll Collector 07/18/17 03:54 Lymph # Toll Collector 07/18/17 03:54 [place] # Toll Collector 07/18/17 03:54 Eos # Toll Collector 07/18/17 03:54 Baso # Toll Collector 07/18/17 03:54 Add Manual Diff Complete 07/05/17 Unknown Total Counted 100 07/05/17 Unknown Seg Neutrophils % Toll Collector 07/18/17 03:54 Seg Neuts % (Manual) 89.0 % (40.0-70.0) H 07/05/17 Unknown Band Neutrophils % 1.0 % 07/05/17 Unknown Lymphocytes % (Manual) 7.0 % (13.4-35.0) L 07/05/17 Unknown Reactive Lymphs % (Man) 0 % 07/05/17 Unknown Monocytes % (Manual) 3.0 % (0.0-7.3) 07/05/17 Unknown Eosinophils % (Manual) 0 % (0.0-4.3) 07/05/17 Unknown Basophils % (Manual) 0 % (0.0-1.8) 07/05/17 Unknown Metamyelocytes % 0 % 07/05/17 Unknown Myelocytes % 0 % 07/05/17 Unknown Promyelocytes % 0 % 07/05/17 Unknown Blast Cells % 0 % 07/05/17 Unknown Nucleated RBC % Not Reportable 07/05/17 Unknown Seg Neutrophils # Toll Collector 07/18/17 03:54 Seg Neutrophils # Man 19.8 K/mm3 (1.8-7.7) H 07/05/17 Unknown Band Neutrophils # 0.2 K/mm3 07/05/17 Unknown Lymphocytes # (Manual) 1.6 K/mm3 (1.2-5.4) 07/05/17 Unknown Abs React Lymphs (Man) 0.0 K/mm3 07/05/17 Unknown Monocytes # (Manual) 0.7 K/mm3 (0.0-0.8) 07/05/17 Unknown Eosinophils # (Manual) 0.0 K/mm3 (0.0-0.4) 07/05/17 Unknown Basophils # (Manual) 0.0 K/mm3 (0.0-0.1) 07/05/17 Unknown Metamyelocytes # 0.0 K/mm3 07/05/17 Unknown Myelocytes # 0.0 K/mm3 07/05/17 Unknown Promyelocytes # 0.0 K/mm3 07/05/17 Unknown Blast Cells # 0.0 K/mm3 07/05/17 Unknown WBC Morphology Not Reportable 07/05/17 Unknown Hypersegmented Neuts Not Reportable 07/05/17 Unknown Hyposegmented Neuts Not Reportable 07/05/17 Unknown Hypogranular Neuts Not Reportable 07/05/17 Unknown Smudge Cells Not Reportable 07/05/17 Unknown Toxic Granulation Not Reportable 07/05/17 Unknown Toxic Vacuolation Not Reportable 07/05/17 Unknown Dohle Bodies Not Reportable 07/05/17 Unknown Pelger-Huet Anomaly Not Reportable 07/05/17 Unknown [place] Rods Not Reportable 07/05/17 Unknown Platelet Estimate Appears decreased 07/05/17 Unknown Clumped Platelets Not Reportable 07/05/17 Unknown Plt Clumps, EDTA Not Reportable 07/05/17 Unknown Large Platelets Not Reportable 07/05/17 Unknown Giant Platelets Not Reportable 07/05/17 Unknown Platelet Satelliting Not Reportable 07/05/17 Unknown Plt Morphology Comment Not Reportable 07/05/17 Unknown RBC Morphology Not Reportable 07/05/17 Unknown Dimorphic RBCs Not Reportable 07/05/17 Unknown Polychromasia Not Reportable 07/05/17 Unknown Hypochromasia Not Reportable 07/05/17 Unknown Poikilocytosis 1+ 07/05/17 Unknown Anisocytosis 1+ 07/05/17 Unknown Microcytosis Few 07/05/17 Unknown Macrocytosis Not Reportable 07/05/17 Unknown Spherocytes Not Reportable 07/05/17 Unknown Pappenheimer Bodies Not Reportable 07/05/17 Unknown Sickle Cells Not Reportable 07/05/17 Unknown Target Cells Not Reportable 07/05/17 Unknown Tear Drop Cells Not Reportable 07/05/17 Unknown Ovalocytes Not Reportable 07/05/17 Unknown Helmet Cells Not Reportable 07/05/17 Unknown [place] Bodies Not Reportable 07/05/17 Unknown [place] Rings Not Reportable 07/05/17 Unknown Bianca Cells Not Reportable 07/05/17 Unknown Bite Cells Not Reportable 07/05/17 Unknown Crenated Cell Not Reportable 07/05/17 Unknown Elliptocytes Not Reportable 07/05/17 Unknown Acanthocytes (Spur) Not Reportable 07/05/17 Unknown Rouleaux Not Reportable 07/05/17 Unknown Hemoglobin C Crystals Not Reportable 07/05/17 Unknown Schistocytes Not Reportable 07/05/17 Unknown Malaria parasites Not Reportable 07/05/17 Unknown Morales Bodies Not Reportable 07/05/17 Unknown Hem Pathologist Commnt No 07/05/17 Unknown PT 13.1 Sec. (12.2-14.9) 07/18/17 09:04 INR 0.94 (0.87-1.13) 07/18/17 09:04 Heparin Anti-Xa, Unfract Negative (Negative) 07/10/17 10:07 POC ABG pH 7.425 (7.35-7.45) 07/20/17 12:50 POC ABG pCO2 44.6 (35-45) 07/20/17 12:50 POC ABG pO2 128 (80-105) H 07/20/17 12:50 POC ABG HCO3 29.3 07/20/17 12:50 POC ABG Total CO2 31 07/20/17 12:50 POC ABG O2 Sat 99 07/20/17 12:50 POC ABG Base Excess 5 07/20/17 12:50 FiO2 28 % 07/20/17 12:50 Sodium 138 mmol/L (137-145) 07/18/17 03:54 Potassium 4.7 mmol/L (3.6-5.0) D 07/18/17 03:54 Chloride 99.2 mmol/L (98-107) 07/18/17 03:54 Carbon Dioxide 24 mmol/L (22-30) 07/18/17 03:54 Anion Gap 20 mmol/L 07/18/17 03:54 BUN 43 mg/dL (9-20) H 07/18/17 03:54 Creatinine 2.6 mg/dL (0.8-1.5) H 07/18/17 03:54 Estimated GFR 29 ml/min 07/18/17 03:54 BUN/Creatinine Ratio 17 % 07/18/17 03:54 Glucose 219 mg/dL (75-100) H 07/18/17 03:54 POC Glucose 276 (70-105) H 07/20/17 16:01 Osmolality 357 Mosm/kg 07/02/17 15:35 Lactic Acid 2.30 mmol/L (0.7-2.0) H* 07/05/17 Unknown Calcium 7.9 mg/dL (8.4-10.2) L 07/18/17 03:54 Ionized Calcium 4.6 mg/dL (4.8-5.6) L 07/04/17 14:10 Phosphorus 1.90 mg/dL (2.5-4.5) L 07/15/17 12:52 Magnesium 1.80 mg/dL (1.7-2.3) 07/04/17 14:10 Total Bilirubin < 0.20 mg/dL (0.1-1.2) 07/15/17 12:52 AST 50 units/L (5-40) H 07/15/17 12:52 ALT 14 units/L (7-56) 07/15/17 12:52 Alkaline Phosphatase 152 units/L (35-129) H 07/15/17 12:52 Lactate Dehydrogenase 880 units/L (91-180) H 07/06/17 08:30 Total Creatine Kinase 58 units/L (55-170) 07/05/17 12:40 CK-MB (CK-2) 1.8 ng/mL (0.0-4.0) 07/05/17 12:40 CK-MB (CK-2) Rel Index 3.1 (0-4) 07/05/17 12:40 Troponin T 0.277 ng/mL (0.00-0.029) H* 07/05/17 12:40 C-Reactive Protein 9.90 mg/dL (0.00-1.30) H 07/05/17 Unknown Total Protein 4.7 g/dL (6.3-8.2) L 07/15/17 12:52 Albumin 1.6 g/dL (3.9-5) L 07/15/17 12:52 Albumin/Globulin Ratio 0.5 % 07/15/17 12:52 Triglycerides 83 mg/dL (2-149) 07/04/17 14:10 Cholesterol 83 mg/dL (50-199) 07/04/17 14:10 LDL Cholesterol Direct 22 mg/dL (50-130) L 07/04/17 14:10 HDL Cholesterol 45 mg/dL (40-59) 07/04/17 14:10 Cholesterol/HDL Ratio 1.84 % 07/04/17 14:10 Serotonin Release Assay See scanned report 07/10/17 10:07 TSH 3.200 mlU/mL (0.270-4.200) 07/02/17 Unknown PTH Intact 159.8 pg/mL (15-65) H 07/15/17 12:52 Urine Color Yellow (Yellow) 07/02/17 17:25 Urine Turbidity Clear (Clear) 07/02/17 17:25 Urine pH 5.0 (5.0-7.0) 07/02/17 17:25 Ur Specific [place] 1.018 (1.003-1.030) 07/02/17 17:25 Urine Protein 100 mg/dl mg/dL (Negative) 07/02/17 17:25 Urine Glucose (UA) >=500 mg/dL (Negative) 07/02/17 17:25 Urine Ketones Neg mg/dL (Negative) 07/02/17 17:25 Urine Blood Sm (Negative) 07/02/17 17:25 Urine Nitrite Neg (Negative) 07/02/17 17:25 Urine Bilirubin Neg (Negative) 07/02/17 17:25 Urine Urobilinogen < 2.0 mg/dL (<2.0) 07/02/17 17:25 Ur Leukocyte Esterase Neg (Negative) 07/02/17 17:25 Urine WBC (Auto) 1.0 /HPF (0.0-6.0) 07/02/17 17:25 Urine RBC (Auto) 2.0 /HPF (0.0-6.0) 07/02/17 17:25 U Epithel Cells (Auto) 1.0 /HPF (0-13.0) 07/02/17 17:25 Fluid Type Pleural 07/06/17 16:53 Fluid Color Yellow 07/06/17 16:53 Fluid Appearance Clear 07/06/17 16:53 Fluid WBC 9 /mm3 07/06/17 16:53 Fluid RBC 6 /mm3 07/06/17 16:53 Fluid Seg Neutrophils 51.2 % 07/06/17 16:53 Fluid Lymphocytes 43.9 % 07/06/17 16:53 Fluid Reactive Lymphs 0 % 07/06/17 16:53 Fluid Monocytes 4.9 % 07/06/17 16:53 Fluid Eosinophils 0 % 07/06/17 16:53 Fluid Basophils 0 % 07/06/17 16:53 Fluid Total Protein < 3.0 (15.0-45.0) L 07/06/17 Unknown Fluid LDH 132 07/06/17 Unknown Fluid Comment 07/06/17 16:53 Salicylates < 0.3 mg/dL (2.8-20.0) L 07/02/17 Unknown Urine Opiates Screen Presumptive negative 07/02/17 17:25 Urine Methadone Screen Presumptive negative 07/02/17 17:25 Acetaminophen < 15.0 ug/mL (10.0-30.0) 07/02/17 Unknown Ur Barbiturates Screen Presumptive negative 07/02/17 17:25 Ur Phencyclidine Scrn Presumptive negative 07/02/17 17:25 Ur Amphetamines Screen Presumptive negative 07/02/17 17:25 U Benzodiazepines Scrn Presumptive negative 07/02/17 17:25 Urine Cocaine Screen Presumptive negative 07/02/17 17:25 U Marijuana (THC) Screen Presumptive negative 07/02/17 17:25 Drugs of Abuse Note Disclamer 07/02/17 17:25 Plasma/Serum Alcohol < 0.01 gm% (0-0.07) 07/02/17 Unknown Heparin-induced Plt Ab Negative (Negative) 07/10/17 10:07 UF Heparin High Dose 0 % Release 07/10/17 10:07 TREVOR UFH Low Dose 0.1 0 % Release 07/10/17 10:07 TREVOR UFH Low Dose 0.5 0 % Release 07/10/17 10:07 Blood Type O POSITIVE 07/15/17 14:49 Antibody Screen Positive 07/15/17 14:49 Prewarmed Antibody Srcn Negative 07/15/17 14:49 Antibody Identification Anti-M 07/15/17 14:49 Crossmatch See Detail 07/15/17 14:49 Crossmatch Prewarmed See Detail 07/15/17 14:49
[2017-07-20] MEDS: HEPARIN IV PRN (20:17)
[2017-07-21] MEDS: HEPARIN SUB-Q SCH ×3 (01:23→22:48)
[2017-07-21] MEDS: NOVOLOG SUB-Q SCH ×5 (01:33→19:08)
[2017-07-21] MEDS: FOLVITE PO SCH (10:37)
[2017-07-21] MEDS: NORVASC PO SCH (10:38)
[2017-07-21] MEDS: ASPIRIN PO SCH (10:38)
[2017-07-21] MEDS: COREG PO SCH ×2 (10:38→22:47)
[2017-07-21] MEDS: PEPCID PO SCH (10:38)
[2017-07-21] MEDS: THERAGRAN-M Tab PO SCH (10:38)
[2017-07-21] MEDS: ROCALTROL PO SCH (10:39)
--- NOTE | 2017-07-21 13:13 | Progress Note ---
Assessment and Plan Impression * End-stage renal disease on maintenance hemodialysis * Status post cardiac arrest * Anemia * Respiratory failure * Encephalopathy * Hyperosmolar nonketotic state Recommendations * Continue hemodialysis on Mondays, Wednesdays and Fridays * Continue Epogen with dialysis * packed RBC transfusion as needed * Adjust diet and meds for ESRD state * Avoid nephrotoxins * Overall prognosis appears to be poor * Status post trach and PEG on 07/19/2017 Subjective Date of service: 07/21/17 Principal diagnosis: Acute Hypoxemic Resp Failure; S/P Cardiac Arrest; Hyperosmolar Non-ketotic Interval history: Patient remains on the ventilator. On 28% FiO2. Unresponsive. Objective - Vital Signs Vital signs: Vital Signs - 12hr 07/21/17 07/21/17 07/21/17 02:00 02:30 03:00 Temperature Pulse Rate 96 H 96 H 98 H Respiratory 14 15 17 Rate Blood Pressure 130/69 133/71 O2 Sat by Pulse 100 100 100 Oximetry O2 Sat by Pulse Oximetry [ Assessment] 07/21/17 07/21/17 07/21/17 03:20 04:00 04:43 Temperature 99.7 F H Pulse Rate 97 H 97 H 97 H Respiratory 17 12 Rate Blood Pressure 133/71 130/67 130/67 O2 Sat by Pulse 100 100 100 Oximetry O2 Sat by Pulse Oximetry [ Assessment] 07/21/17 07/21/17 07/21/17 05:00 05:53 06:00 Temperature Pulse Rate 91 H 91 H 93 H Respiratory 12 12 Rate Blood Pressure 105/56 126/61 O2 Sat by Pulse 100 100 100 Oximetry O2 Sat by Pulse Oximetry [ Assessment] 07/21/17 07/21/17 07/21/17 07:00 08:00 08:28 Temperature 98.9 F Pulse Rate 95 H 95 H 96 H Respiratory 15 13 15 Rate Blood Pressure 122/70 113/58 123/64 O2 Sat by Pulse 100 100 99 Oximetry O2 Sat by Pulse 99 Oximetry [ Assessment] 07/21/17 07/21/17 07/21/17 09:00 10:00 10:38 Temperature Pulse Rate 94 H 92 H 90 Respiratory 14 18 Rate Blood Pressure 125/61 123/62 113/48 O2 Sat by Pulse 100 100 Oximetry O2 Sat by Pulse Oximetry [ Assessment] 07/21/17 07/21/17 07/21/17 11:00 12:00 12:59 Temperature 99.0 F Pulse Rate 93 H 89 101 H Respiratory 12 12 16 Rate Blood Pressure 127/63 109/54 O2 Sat by Pulse 100 100 100 Oximetry O2 Sat by Pulse Oximetry [ Assessment] - General Appearance General appearance: chronically ill, intubated, frail EENT: ATNC, PERRL Neck: no thyromegaly, other (tracheostomy tube in place. Connected to the ventilator) Respiratory: Present: Clear to Ascultation Cardiology: regular, normal heart rate, S1S2, no murmurs Gastrointestinal: normal, normoactive bowel sounds, other (PEG tube in place) Integumentary: other (no leg edema) - Lab 07/18/17 03:54 07/18/17 03:54 Most recent lab results Calcium 7.9 mg/dL (8.4-10.2) L 07/18/17 03:54 Phosphorus 1.90 mg/dL (2.5-4.5) L 07/15/17 12:52 Magnesium 1.80 mg/dL (1.7-2.3) 07/04/17 14:10
[2017-07-21] MEDS: LEVEMIR SUB-Q SCH (13:19)
--- NOTE | 2017-07-21 13:30 | Progress Note ---
Assessment and Plan Acute Hypoxemic Respiratory Failure on MVS Seizure Disorder s/p Cardiac Arrest ESRD on Dialysis Sepsis Syndrome Hyperosmolar non ketotic state Anemia Leucocytosis Acute Encephalopathy Thrombocytopenia - awaiting trach and PEG - H&H holding post transfusions - AMS still a rate limiting factor to safe extubation - s/p EEG - continue and complete antibiotics per ID recs - continue prn hydralazine and resumed home amlodipine dose (10mg qd) and coreg - keep set rate at 12/min - continue daily PSV trials as tolerated - continue aspiration precautions / addressing VAP bundle daily - continue to wean FiO2 for sats > 94% - continue enteral nutrition as tolerated - continue bronchodilators and pulmonary toilet - continue and adjust AB's per ID recs - continue glycemic control with SSI and levemir (target BG <180mg/dl) - continue GI & VTE prophylaxis - Continue to monitor platelet count while on heparin - continue other care per attending / other consultants - flu and pneumovax addressed per protocol ...the hope is that as sepsis resolves mental status will improve but that has not borne out so far ....30' CCT without overlap Subjective Date of service: 07/21/17 Principal diagnosis: Acute Hypoxemic Resp Failure; S/P Cardiac Arrest; Hyperosmolar Non-ketotic Interval history: Patient is seen today for: Acute Hypoxemic Resp Failure; S/P Cardiac Arrest; Hyperosmolar Non-ketotic Seen and examined at bedside; 24hour events reviewed; nursing and respiratory care staff consulted; no adverse overnight events reported to me; remains on MVS ; Objective Vital Signs - 12hr 07/21/17 07/21/17 07/21/17 02:00 02:30 03:00 Temperature Pulse Rate 96 H 96 H 98 H Respiratory 14 15 17 Rate Blood Pressure 130/69 133/71 O2 Sat by Pulse 100 100 100 Oximetry O2 Sat by Pulse Oximetry [ Assessment] 07/21/17 07/21/17 07/21/17 03:20 04:00 04:43 Temperature 99.7 F H Pulse Rate 97 H 97 H 97 H Respiratory 17 12 Rate Blood Pressure 133/71 130/67 130/67 O2 Sat by Pulse 100 100 100 Oximetry O2 Sat by Pulse Oximetry [ Assessment] 07/21/17 07/21/17 07/21/17 05:00 05:53 06:00 Temperature Pulse Rate 91 H 91 H 93 H Respiratory 12 12 Rate Blood Pressure 105/56 126/61 O2 Sat by Pulse 100 100 100 Oximetry O2 Sat by Pulse Oximetry [ Assessment] 07/21/17 07/21/17 07/21/17 07:00 08:00 08:28 Temperature 98.9 F Pulse Rate 95 H 95 H 96 H Respiratory 15 13 15 Rate Blood Pressure 122/70 113/58 123/64 O2 Sat by Pulse 100 100 99 Oximetry O2 Sat by Pulse 99 Oximetry [ Assessment] 07/21/17 07/21/17 07/21/17 09:00 10:00 10:38 Temperature Pulse Rate 94 H 92 H 90 Respiratory 14 18 Rate Blood Pressure 125/61 123/62 113/48 O2 Sat by Pulse 100 100 Oximetry O2 Sat by Pulse Oximetry [ Assessment] 07/21/17 07/21/17 07/21/17 11:00 12:00 12:59 Temperature 99.0 F Pulse Rate 93 H 89 101 H Respiratory 12 12 16 Rate Blood Pressure 127/63 109/54 O2 Sat by Pulse 100 100 100 Oximetry O2 Sat by Pulse Oximetry [ Assessment] Constitutional: no acute distress, other (encephalopathic) Eyes: non-icteric ENT: oropharynx moist, other (ETT at 25cm TIKI) Neck: supple, no lymphadenopathy, JVD, other (no thyromegally) Effort: mildly labored Ascultation: Bilateral: diminished breath sounds (bases), rales Percussion: Right: dull (base), Bilateral: not dull Cardiovascular: regular rate and rhythm, other (no rubs / murmurs) Gastrointestinal: normoactive bowel sounds, soft, non-tender, non-distended, other (no HSM) Integumentary: normal Extremities: no cyanosis, no edema, pulses normal, no ischemia or petechiae Neurologic: pupils equal and round, unable to assess, other (no spontaneous limb movements) Psychiatric: other (unable to assess) CBC and BMP: 07/18/17 03:54 07/18/17 03:54 ABG, PT/INR, D-dimer: ABG POC ABG pH 7.425 (7.35-7.45) 07/20/17 12:50 POC ABG pCO2 44.6 (35-45) 07/20/17 12:50 POC ABG pO2 128 (80-105) H 07/20/17 12:50 POC ABG HCO3 29.3 07/20/17 12:50 POC ABG Total CO2 31 07/20/17 12:50 POC ABG O2 Sat 99 07/20/17 12:50 PT/INR, D-dimer PT 13.1 Sec. (12.2-14.9) 07/18/17 09:04 INR 0.94 (0.87-1.13) 07/18/17 09:04 Abnormal lab findings: Abnormal Labs 07/02/17 07/02/17 07/02/17 15:03 15:12 17:49 WBC 13.5 H RBC 3.47 L Hgb 9.9 L Hct 33.1 L MCV 96 H MCHC 30 L RDW 15.4 H Plt Count 130 L Lymph % (Auto) Barnes % (Auto) Lymph # Barnes # Seg Neutrophils % Seg Neuts % (Manual) 95.0 H Lymphocytes % (Manual) 3.0 L Seg Neutrophils # Seg Neutrophils # Man 12.8 H Lymphocytes # (Manual) 0.4 L POC ABG pH POC ABG pCO2 POC ABG pO2 Sodium Potassium Chloride Carbon Dioxide BUN Creatinine Glucose POC Glucose > 500 H Lactic Acid 7.80 H* Calcium Ionized Calcium Phosphorus AST Alkaline Phosphatase Lactate Dehydrogenase CK-MB (CK-2) Troponin T C-Reactive Protein Total Protein Albumin LDL Cholesterol Direct PTH Intact Fluid Total Protein Salicylates Crossmatch Prewarmed 07/02/17 07/02/17 07/02/17 20:29 21:31 23:38 WBC RBC Hgb Hct MCV MCHC RDW Plt Count Lymph % (Auto) Barnes % (Auto) Lymph # Barnes # Seg Neutrophils % Seg Neuts % (Manual) Lymphocytes % (Manual) Seg Neutrophils # Seg Neutrophils # Man Lymphocytes # (Manual) POC ABG pH POC ABG pCO2 POC ABG pO2 Sodium 129 L 132 L Potassium Chloride 87.2 L 93.7 L Carbon Dioxide 18 L 15 L BUN 51 H 47 H Creatinine 4.3 H 4.1 H Glucose 950 H* 825 H* POC Glucose Lactic Acid 5.70 H* Calcium 7.1 L 6.8 L Ionized Calcium Phosphorus AST Alkaline Phosphatase Lactate Dehydrogenase CK-MB (CK-2) Troponin T C-Reactive Protein Total Protein Albumin LDL Cholesterol Direct PTH Intact Fluid Total Protein Salicylates Crossmatch Prewarmed 07/02/17 07/02/17 07/02/17 23:38 23:44 Unknown WBC RBC Hgb Hct MCV MCHC RDW Plt Count Lymph % (Auto) Barnes % (Auto) Lymph # Barnes # Seg Neutrophils % Seg Neuts % (Manual) Lymphocytes % (Manual) Seg Neutrophils # Seg Neutrophils # Man Lymphocytes # (Manual) POC ABG pH POC ABG pCO2 POC ABG pO2 Sodium 132 L 125 L D Potassium Chloride 94.6 L 85.6 L Carbon Dioxide 17 L 19 L D BUN 51 H 50 H Creatinine 4.1 H 4.4 H D Glucose 772 H* 1113 H* POC Glucose > 500 H Lactic Acid Calcium 6.7 L 7.2 L Ionized Calcium Phosphorus AST Alkaline Phosphatase 139 H Lactate Dehydrogenase CK-MB (CK-2) Troponin T C-Reactive Protein Total Protein 6.1 L Albumin 3.3 L LDL Cholesterol Direct PTH Intact Fluid Total Protein Salicylates Crossmatch Prewarmed 07/02/17 07/02/17 07/03/17 Unknown Unknown 01:00 WBC RBC Hgb Hct MCV MCHC RDW Plt Count Lymph % (Auto) Barnes % (Auto) Lymph # Barnes # Seg Neutrophils % Seg Neuts % (Manual) Lymphocytes % (Manual) Seg Neutrophils # Seg Neutrophils # Man Lymphocytes # (Manual) POC ABG pH POC ABG pCO2 POC ABG pO2 Sodium 134 L Potassium Chloride 96.4 L Carbon Dioxide 19 L BUN 50 H Creatinine 4.0 H Glucose 677 H* POC Glucose Lactic Acid 6.30 H* Calcium 6.6 L Ionized Calcium Phosphorus AST Alkaline Phosphatase Lactate Dehydrogenase CK-MB (CK-2) Troponin T C-Reactive Protein Total Protein Albumin LDL Cholesterol Direct PTH Intact Fluid Total Protein Salicylates < 0.3 L Crossmatch Prewarmed 07/03/17 07/03/17 07/03/17 01:04 02:15 02:15 WBC RBC Hgb Hct MCV MCHC RDW Plt Count Lymph % (Auto) Barnes % (Auto) Lymph # Barnes # Seg Neutrophils % Seg Neuts % (Manual) Lymphocytes % (Manual) Seg Neutrophils # Seg Neutrophils # Man Lymphocytes # (Manual) POC ABG pH POC ABG pCO2 POC ABG pO2 Sodium 134 L Potassium Chloride 97.6 L Carbon Dioxide 19 L BUN 50 H Creatinine 4.2 H Glucose 592 H* POC Glucose > 500 H Lactic Acid 4.30 H* Calcium 6.6 L Ionized Calcium Phosphorus AST Alkaline Phosphatase Lactate Dehydrogenase CK-MB (CK-2) Troponin T C-Reactive Protein Total Protein Albumin LDL Cholesterol Direct PTH Intact Fluid Total Protein Salicylates Crossmatch Prewarmed 07/03/17 07/03/17 07/03/17 02:21 03:25 04:10 WBC RBC Hgb Hct MCV MCHC RDW Plt Count Lymph % (Auto) Barnes % (Auto) Lymph # Barnes # Seg Neutrophils % Seg Neuts % (Manual) Lymphocytes % (Manual) Seg Neutrophils # Seg Neutrophils # Man Lymphocytes # (Manual) POC ABG pH POC ABG pCO2 POC ABG pO2 Sodium Potassium Chloride Carbon Dioxide 19 L BUN 50 H Creatinine 4.0 H Glucose 416 H POC Glucose 482 H > 500 H Lactic Acid Calcium 6.8 L Ionized Calcium Phosphorus AST Alkaline Phosphatase Lactate Dehydrogenase CK-MB (CK-2) Troponin T C-Reactive Protein Total Protein Albumin LDL Cholesterol Direct PTH Intact Fluid Total Protein Salicylates Crossmatch Prewarmed 07/03/17 07/03/17 07/03/17 04:30 04:36 05:33 WBC RBC Hgb Hct MCV MCHC RDW Plt Count Lymph % (Auto) Barnes % (Auto) Lymph # Barnes # Seg Neutrophils % Seg Neuts % (Manual) Lymphocytes % (Manual) Seg Neutrophils # Seg Neutrophils # Man Lymphocytes # (Manual) POC ABG pH 7.311 L POC ABG pCO2 33.5 L POC ABG pO2 73 L Sodium Potassium Chloride Carbon Dioxide BUN Creatinine Glucose POC Glucose 389 H 326 H Lactic Acid Calcium Ionized Calcium Phosphorus AST Alkaline Phosphatase Lactate Dehydrogenase CK-MB (CK-2) Troponin T C-Reactive Protein Total Protein Albumin LDL Cholesterol Direct PTH Intact Fluid Total Protein Salicylates Crossmatch Prewarmed 07/03/17 07/03/17 07/03/17 06:06 07:38 09:58 WBC RBC Hgb Hct MCV MCHC RDW Plt Count Lymph % (Auto) Barnes % (Auto) Lymph # Barnes # Seg Neutrophils % Seg Neuts % (Manual) Lymphocytes % (Manual) Seg Neutrophils # Seg Neutrophils # Man Lymphocytes # (Manual) POC ABG pH POC ABG pCO2 POC ABG pO2 Sodium Potassium Chloride Carbon Dioxide BUN Creatinine Glucose POC Glucose 247 H 118 H 52 L Lactic Acid Calcium Ionized Calcium Phosphorus AST Alkaline Phosphatase Lactate Dehydrogenase CK-MB (CK-2) Troponin T C-Reactive Protein Total Protein Albumin LDL Cholesterol Direct PTH Intact Fluid Total Protein Salicylates Crossmatch Prewarmed 07/03/17 07/03/17 07/03/17 11:00 13:16 15:02 WBC RBC Hgb Hct MCV MCHC RDW Plt Count Lymph % (Auto) Barnes % (Auto) Lymph # Barnes # Seg Neutrophils % Seg Neuts % (Manual) Lymphocytes % (Manual) Seg Neutrophils # Seg Neutrophils # Man Lymphocytes # (Manual) POC ABG pH POC ABG pCO2 POC ABG pO2 Sodium Potassium Chloride Carbon Dioxide BUN Creatinine Glucose POC Glucose 64 L 112 H 158 H Lactic Acid Calcium Ionized Calcium Phosphorus AST Alkaline Phosphatase Lactate Dehydrogenase CK-MB (CK-2) Troponin T C-Reactive Protein Total Protein Albumin LDL Cholesterol Direct PTH Intact Fluid Total Protein Salicylates Crossmatch Prewarmed 07/03/17 07/03/17 07/03/17 18:17 Unknown Unknown WBC RBC Hgb Hct MCV MCHC RDW Plt Count Lymph % (Auto) Barnes % (Auto) Lymph # Barnes # Seg Neutrophils % Seg Neuts % (Manual) Lymphocytes % (Manual) Seg Neutrophils # Seg Neutrophils # Man Lymphocytes # (Manual) POC ABG pH POC ABG pCO2 POC ABG pO2 Sodium Potassium Chloride Carbon Dioxide BUN Creatinine Glucose POC Glucose 131 H Lactic Acid 2.40 H* Calcium Ionized Calcium Phosphorus AST Alkaline Phosphatase Lactate Dehydrogenase CK-MB (CK-2) Troponin T C-Reactive Protein 1.90 H Total Protein Albumin LDL Cholesterol Direct PTH Intact Fluid Total Protein Salicylates Crossmatch Prewarmed 07/03/17 07/04/17 07/04/17 Unknown 00:13 02:04 WBC RBC Hgb Hct MCV MCHC RDW Plt Count Lymph % (Auto) Barnes % (Auto) Lymph # Barnes # Seg Neutrophils % Seg Neuts % (Manual) Lymphocytes % (Manual) Seg Neutrophils # Seg Neutrophils # Man Lymphocytes # (Manual) POC ABG pH POC ABG pCO2 POC ABG pO2 Sodium Potassium Chloride Carbon Dioxide BUN 52 H Creatinine 4.3 H Glucose POC Glucose 69 L 111 H Lactic Acid Calcium 7.2 L Ionized Calcium Phosphorus AST Alkaline Phosphatase Lactate Dehydrogenase CK-MB (CK-2) Troponin T C-Reactive Protein Total Protein Albumin LDL Cholesterol Direct PTH Intact Fluid Total Protein Salicylates Crossmatch Prewarmed 07/04/17 07/04/17 07/04/17 04:38 08:00 08:00 WBC 28.3 H RBC 3.55 L Hgb 10.3 L Hct 31.2 L MCV MCHC RDW 15.3 H Plt Count 101 L Lymph % (Auto) Barnes % (Auto) Lymph # Barnes # Seg Neutrophils % Seg Neuts % (Manual) Lymphocytes % (Manual) Seg Neutrophils # Seg Neutrophils # Man Lymphocytes # (Manual) POC ABG pH POC ABG pCO2 27.6 L POC ABG pO2 Sodium Potassium Chloride Carbon Dioxide 20 L BUN 62 H Creatinine 4.7 H Glucose POC Glucose Lactic Acid Calcium 7.0 L Ionized Calcium Phosphorus AST Alkaline Phosphatase Lactate Dehydrogenase CK-MB (CK-2) Troponin T C-Reactive Protein Total Protein Albumin LDL Cholesterol Direct PTH Intact Fluid Total Protein Salicylates Crossmatch Prewarmed 07/04/17 07/04/17 07/04/17 14:10 14:10 14:33 WBC RBC Hgb Hct MCV MCHC RDW Plt Count Lymph % (Auto) Barnes % (Auto) Lymph # Barnes # Seg Neutrophils % Seg Neuts % (Manual) Lymphocytes % (Manual) Seg Neutrophils # Seg Neutrophils # Man Lymphocytes # (Manual) POC ABG pH 7.474 H POC ABG pCO2 29.4 L POC ABG pO2 Sodium Potassium Chloride Carbon Dioxide BUN Creatinine Glucose POC Glucose Lactic Acid Calcium Ionized Calcium 4.6 L Phosphorus AST Alkaline Phosphatase Lactate Dehydrogenase CK-MB (CK-2) 4.3 H Troponin T 0.282 H* C-Reactive Protein Total Protein Albumin LDL Cholesterol Direct 22 L PTH Intact Fluid Total Protein Salicylates Crossmatch Prewarmed 07/04/17 07/04/17 07/04/17 17:26 20:40 23:34 WBC RBC Hgb Hct MCV MCHC RDW Plt Count Lymph % (Auto) Barnes % (Auto) Lymph # Barnes # Seg Neutrophils % Seg Neuts % (Manual) Lymphocytes % (Manual) Seg Neutrophils # Seg Neutrophils # Man Lymphocytes # (Manual) POC ABG pH POC ABG pCO2 POC ABG pO2 Sodium Potassium Chloride Carbon Dioxide BUN Creatinine Glucose POC Glucose 201 H 188 H Lactic Acid Calcium Ionized Calcium Phosphorus AST Alkaline Phosphatase Lactate Dehydrogenase CK-MB (CK-2) Troponin T 0.276 H* C-Reactive Protein Total Protein Albumin LDL Cholesterol Direct PTH Intact Fluid Total Protein Salicylates Crossmatch Prewarmed 07/05/17 07/05/17 07/05/17 05:42 07:50 11:52 WBC RBC Hgb Hct MCV MCHC RDW Plt Count Lymph % (Auto) Barnes % (Auto) Lymph # Barnes # Seg Neutrophils % Seg Neuts % (Manual) Lymphocytes % (Manual) Seg Neutrophils # Seg Neutrophils # Man Lymphocytes # (Manual) POC ABG pH POC ABG pCO2 POC ABG pO2 117 H Sodium Potassium Chloride Carbon Dioxide BUN Creatinine Glucose POC Glucose 126 H 110 H Lactic Acid Calcium Ionized Calcium Phosphorus AST Alkaline Phosphatase Lactate Dehydrogenase CK-MB (CK-2) Troponin T C-Reactive Protein Total Protein Albumin LDL Cholesterol Direct PTH Intact Fluid Total Protein Salicylates Crossmatch Prewarmed 07/05/17 07/05/17 07/05/17 12:40 17:51 18:12 WBC RBC Hgb Hct MCV MCHC RDW Plt Count Lymph % (Auto) Barnes % (Auto) Lymph # Barnes # Seg Neutrophils % Seg Neuts % (Manual) Lymphocytes % (Manual) Seg Neutrophils # Seg Neutrophils # Man Lymphocytes # (Manual) POC ABG pH POC ABG pCO2 POC ABG pO2 Sodium Potassium Chloride Carbon Dioxide BUN Creatinine Glucose POC Glucose 57 L 69 L Lactic Acid Calcium Ionized Calcium Phosphorus AST Alkaline Phosphatase Lactate Dehydrogenase CK-MB (CK-2) Troponin T 0.277 H* C-Reactive Protein Total Protein Albumin LDL Cholesterol Direct PTH Intact Fluid Total Protein Salicylates Crossmatch Prewarmed 07/05/17 07/05/17 07/05/17 Unknown Unknown Unknown WBC 22.2 H RBC 3.24 L Hgb 9.7 L Hct 28.6 L MCV MCHC RDW Plt Count 89 L Lymph % (Auto) Barnes % (Auto) Lymph # Barnes # Seg Neutrophils % Seg Neuts % (Manual) 89.0 H Lymphocytes % (Manual) 7.0 L Seg Neutrophils # Seg Neutrophils # Man 19.8 H Lymphocytes # (Manual) POC ABG pH POC ABG pCO2 POC ABG pO2 Sodium Potassium 3.5 L Chloride Carbon Dioxide BUN 37 H Creatinine 3.1 H Glucose 120 H POC Glucose Lactic Acid 2.30 H* Calcium 7.7 L Ionized Calcium Phosphorus AST Alkaline Phosphatase Lactate Dehydrogenase CK-MB (CK-2) Troponin T C-Reactive Protein Total Protein Albumin LDL Cholesterol Direct PTH Intact Fluid Total Protein Salicylates Crossmatch Prewarmed 07/05/17 07/06/17 07/06/17 Unknown 03:25 03:25 WBC 17.7 H RBC 3.14 L Hgb 9.3 L Hct 27.8 L MCV MCHC RDW 15.7 H Plt Count 82 L Lymph % (Auto) 2.5 L Barnes % (Auto) Lymph # 0.4 L Barnes # 1.1 H Seg Neutrophils % 90.0 H Seg Neuts % (Manual) Lymphocytes % (Manual) Seg Neutrophils # 15.9 H Seg Neutrophils # Man Lymphocytes # (Manual) POC ABG pH POC ABG pCO2 POC ABG pO2 Sodium Potassium 3.3 L Chloride Carbon Dioxide BUN 44 H Creatinine 3.6 H Glucose 132 H POC Glucose Lactic Acid Calcium 7.4 L Ionized Calcium Phosphorus AST Alkaline Phosphatase Lactate Dehydrogenase CK-MB (CK-2) Troponin T C-Reactive Protein 9.90 H Total Protein Albumin LDL Cholesterol Direct PTH Intact Fluid Total Protein Salicylates Crossmatch Prewarmed 07/06/17 07/06/17 07/06/17 04:19 05:24 08:30 WBC RBC Hgb Hct MCV MCHC RDW Plt Count Lymph % (Auto) Barnes % (Auto) Lymph # Barnes # Seg Neutrophils % Seg Neuts % (Manual) Lymphocytes % (Manual) Seg Neutrophils # Seg Neutrophils # Man Lymphocytes # (Manual) POC ABG pH POC ABG pCO2 34.3 L POC ABG pO2 Sodium Potassium Chloride Carbon Dioxide BUN Creatinine Glucose POC Glucose 174 H Lactic Acid Calcium Ionized Calcium Phosphorus AST Alkaline Phosphatase Lactate Dehydrogenase 880 H CK-MB (CK-2) Troponin T C-Reactive Protein Total Protein 4.9 L Albumin LDL Cholesterol Direct PTH Intact Fluid Total Protein Salicylates Crossmatch Prewarmed 07/06/17 07/06/17 07/06/17 11:13 17:14 23:38 WBC RBC Hgb Hct MCV MCHC RDW Plt Count Lymph % (Auto) Barnes % (Auto) Lymph # Barnes # Seg Neutrophils % Seg Neuts % (Manual) Lymphocytes % (Manual) Seg Neutrophils # Seg Neutrophils # Man Lymphocytes # (Manual) POC ABG pH POC ABG pCO2 POC ABG pO2 Sodium Potassium Chloride Carbon Dioxide BUN Creatinine Glucose POC Glucose 216 H 211 H 122 H Lactic Acid Calcium Ionized Calcium Phosphorus AST Alkaline Phosphatase Lactate Dehydrogenase CK-MB (CK-2) Troponin T C-Reactive Protein Total Protein Albumin LDL Cholesterol Direct PTH Intact Fluid Total Protein Salicylates Crossmatch Prewarmed 07/06/17 07/07/17 07/07/17 Unknown 04:38 05:00 WBC 16.1 H RBC 3.00 L Hgb 8.9 L Hct 26.6 L MCV MCHC RDW 15.6 H Plt Count 106 L Lymph % (Auto) 4.1 L Barnes % (Auto) 8.0 H Lymph # 0.7 L Barnes # 1.3 H Seg Neutrophils % 86.6 H Seg Neuts % (Manual) Lymphocytes % (Manual) Seg Neutrophils # 13.9 H Seg Neutrophils # Man Lymphocytes # (Manual) POC ABG pH 7.455 H POC ABG pCO2 POC ABG pO2 134 H Sodium Potassium Chloride Carbon Dioxide BUN Creatinine Glucose POC Glucose Lactic Acid Calcium Ionized Calcium Phosphorus AST Alkaline Phosphatase Lactate Dehydrogenase CK-MB (CK-2) Troponin T C-Reactive Protein Total Protein Albumin LDL Cholesterol Direct PTH Intact Fluid Total Protein < 3.0 L Salicylates Crossmatch Prewarmed 07/07/17 07/07/17 07/07/17 05:00 05:17 11:33 WBC RBC Hgb Hct MCV MCHC RDW Plt Count Lymph % (Auto) Barnes % (Auto) Lymph # Barnes # Seg Neutrophils % Seg Neuts % (Manual) Lymphocytes % (Manual) Seg Neutrophils # Seg Neutrophils # Man Lymphocytes # (Manual) POC ABG pH POC ABG pCO2 POC ABG pO2 Sodium Potassium Chloride Carbon Dioxide BUN 30 H Creatinine 2.8 H Glucose 188 H POC Glucose 189 H 275 H Lactic Acid Calcium 7.9 L Ionized Calcium Phosphorus AST Alkaline Phosphatase Lactate Dehydrogenase CK-MB (CK-2) Troponin T C-Reactive Protein Total Protein Albumin LDL Cholesterol Direct PTH Intact Fluid Total Protein Salicylates Crossmatch Prewarmed 07/07/17 07/07/17 07/07/17 16:04 17:08 23:45 WBC RBC Hgb Hct MCV MCHC RDW Plt Count Lymph % (Auto) Barnes % (Auto) Lymph # Barnes # Seg Neutrophils % Seg Neuts % (Manual) Lymphocytes % (Manual) Seg Neutrophils # Seg Neutrophils # Man Lymphocytes # (Manual) POC ABG pH POC ABG pCO2 POC ABG pO2 126 H Sodium Potassium Chloride Carbon Dioxide BUN Creatinine Glucose POC Glucose 241 H 118 H Lactic Acid Calcium Ionized Calcium Phosphorus AST Alkaline Phosphatase Lactate Dehydrogenase CK-MB (CK-2) Troponin T C-Reactive Protein Total Protein Albumin LDL Cholesterol Direct PTH Intact Fluid Total Protein Salicylates Crossmatch Prewarmed 07/08/17 07/08/17 07/08/17 05:30 05:54 06:12 WBC 17.0 H RBC 3.27 L Hgb 9.5 L Hct 29.1 L MCV MCHC RDW 15.6 H Plt Count 133 L Lymph % (Auto) 4.6 L Barnes % (Auto) 9.2 H Lymph # 0.8 L Barnes # 1.6 H Seg Neutrophils % 83.9 H Seg Neuts % (Manual) Lymphocytes % (Manual) Seg Neutrophils # 14.3 H Seg Neutrophils # Man Lymphocytes # (Manual) POC ABG pH 7.477 H POC ABG pCO2 POC ABG pO2 118 H Sodium Potassium Chloride Carbon Dioxide BUN Creatinine Glucose POC Glucose 199 H Lactic Acid Calcium Ionized Calcium Phosphorus AST Alkaline Phosphatase Lactate Dehydrogenase CK-MB (CK-2) Troponin T C-Reactive Protein Total Protein Albumin LDL Cholesterol Direct PTH Intact Fluid Total Protein Salicylates Crossmatch Prewarmed 07/08/17 07/08/17 07/08/17 06:12 11:37 17:21 WBC RBC Hgb Hct MCV MCHC RDW Plt Count Lymph % (Auto) Barnes % (Auto) Lymph # Barnes # Seg Neutrophils % Seg Neuts % (Manual) Lymphocytes % (Manual) Seg Neutrophils # Seg Neutrophils # Man Lymphocytes # (Manual) POC ABG pH POC ABG pCO2 POC ABG pO2 Sodium Potassium Chloride Carbon Dioxide BUN 44 H Creatinine 3.4 H Glucose 190 H POC Glucose 236 H 186 H Lactic Acid Calcium 7.8 L Ionized Calcium Phosphorus AST Alkaline Phosphatase Lactate Dehydrogenase CK-MB (CK-2) Troponin T C-Reactive Protein Total Protein Albumin LDL Cholesterol Direct PTH Intact Fluid Total Protein Salicylates Crossmatch Prewarmed 07/08/17 07/09/17 07/09/17 23:09 04:27 05:02 WBC 17.8 H RBC 2.88 L Hgb 8.5 L Hct 25.6 L MCV MCHC RDW 15.5 H Plt Count Lymph % (Auto) 4.6 L Barnes % (Auto) 10.2 H Lymph # 0.8 L Barnes # 1.8 H Seg Neutrophils % 83.4 H Seg Neuts % (Manual) Lymphocytes % (Manual) Seg Neutrophils # 14.8 H Seg Neutrophils # Man Lymphocytes # (Manual) POC ABG pH POC ABG pCO2 POC ABG pO2 132 H Sodium Potassium Chloride Carbon Dioxide BUN Creatinine Glucose POC Glucose 203 H Lactic Acid Calcium Ionized Calcium Phosphorus AST Alkaline Phosphatase Lactate Dehydrogenase CK-MB (CK-2) Troponin T C-Reactive Protein Total Protein Albumin LDL Cholesterol Direct PTH Intact Fluid Total Protein Salicylates Crossmatch Prewarmed 07/09/17 07/09/17 07/09/17 05:02 05:33 12:07 WBC RBC Hgb Hct MCV MCHC RDW Plt Count Lymph % (Auto) Barnes % (Auto) Lymph # Barnes # Seg Neutrophils % Seg Neuts % (Manual) Lymphocytes % (Manual) Seg Neutrophils # Seg Neutrophils # Man Lymphocytes # (Manual) POC ABG pH POC ABG pCO2 POC ABG pO2 Sodium Potassium Chloride Carbon Dioxide BUN 61 H Creatinine 4.0 H Glucose 183 H POC Glucose 177 H 276 H Lactic Acid Calcium 7.6 L Ionized Calcium Phosphorus AST Alkaline Phosphatase Lactate Dehydrogenase CK-MB (CK-2) Troponin T C-Reactive Protein Total Protein Albumin LDL Cholesterol Direct PTH Intact Fluid Total Protein Salicylates Crossmatch Prewarmed 07/09/17 07/10/17 07/10/17 18:54 03:50 03:50 WBC 16.8 H RBC 2.77 L Hgb 8.1 L Hct 24.9 L MCV MCHC RDW 15.7 H Plt Count Lymph % (Auto) 4.3 L Barnes % (Auto) 10.8 H Lymph # 0.7 L Barnes # 1.8 H Seg Neutrophils % 83.5 H Seg Neuts % (Manual) Lymphocytes % (Manual) Seg Neutrophils # 14.1 H Seg Neutrophils # Man Lymphocytes # (Manual) POC ABG pH POC ABG pCO2 POC ABG pO2 Sodium Potassium Chloride Carbon Dioxide BUN 31 H Creatinine 2.5 H Glucose 129 H POC Glucose 178 H Lactic Acid Calcium 8.1 L Ionized Calcium Phosphorus AST Alkaline Phosphatase Lactate Dehydrogenase CK-MB (CK-2) Troponin T C-Reactive Protein Total Protein Albumin LDL Cholesterol Direct PTH Intact Fluid Total Protein Salicylates Crossmatch Prewarmed 07/10/17 07/10/17 07/10/17 05:41 10:02 10:07 WBC 16.3 H RBC 2.66 L Hgb 7.9 L Hct 23.5 L MCV MCHC RDW 16.1 H Plt Count Lymph % (Auto) 4.8 L Barnes % (Auto) 9.6 H Lymph # 0.8 L Barnes # 1.6 H Seg Neutrophils % 84.0 H Seg Neuts % (Manual) Lymphocytes % (Manual) Seg Neutrophils # 13.7 H Seg Neutrophils # Man Lymphocytes # (Manual) POC ABG pH POC ABG pCO2 POC ABG pO2 Sodium Potassium Chloride Carbon Dioxide BUN 35 H Creatinine 2.6 H Glucose 196 H POC Glucose 160 H Lactic Acid Calcium 7.9 L Ionized Calcium Phosphorus AST Alkaline Phosphatase Lactate Dehydrogenase CK-MB (CK-2) Troponin T C-Reactive Protein Total Protein Albumin LDL Cholesterol Direct PTH Intact Fluid Total Protein Salicylates Crossmatch Prewarmed 07/10/17 07/10/17 07/10/17 11:21 14:14 16:36 WBC RBC Hgb Hct MCV MCHC RDW Plt Count Lymph % (Auto) Barnes % (Auto) Lymph # Barnes # Seg Neutrophils % Seg Neuts % (Manual) Lymphocytes % (Manual) Seg Neutrophils # Seg Neutrophils # Man Lymphocytes # (Manual) POC ABG pH POC ABG pCO2 POC ABG pO2 138 H Sodium Potassium Chloride Carbon Dioxide BUN Creatinine Glucose POC Glucose 206 H 133 H Lactic Acid Calcium Ionized Calcium Phosphorus AST Alkaline Phosphatase Lactate Dehydrogenase CK-MB (CK-2) Troponin T C-Reactive Protein Total Protein Albumin LDL Cholesterol Direct PTH Intact Fluid Total Protein Salicylates Crossmatch [facility] 07/11/17 07/11/17 07/11/17 04:08 08:19 13:58 WBC RBC Hgb Hct MCV MCHC RDW Plt Count Lymph % (Auto) Barnes % (Auto) Lymph # Barnes # Seg Neutrophils % Seg Neuts % (Manual) Lymphocytes % (Manual) Seg Neutrophils # Seg Neutrophils # Man Lymphocytes # (Manual) POC ABG pH POC ABG pCO2 POC ABG pO2 Sodium Potassium Chloride Carbon Dioxide BUN 45 H Creatinine 3.1 H Glucose POC Glucose 155 H 199 H Lactic Acid Calcium 7.8 L Ionized Calcium Phosphorus AST Alkaline Phosphatase Lactate Dehydrogenase CK-MB (CK-2) Troponin T C-Reactive Protein Total Protein Albumin LDL Cholesterol Direct PTH Intact Fluid Total Protein Salicylates Crossmatch [facility] 07/11/17 07/11/17 07/12/17 17:52 23:39 04:37 WBC 12.9 H RBC 2.62 L Hgb 7.6 L Hct 24.0 L MCV MCHC RDW 16.0 H Plt Count Lymph % (Auto) 4.8 L Barnes % (Auto) 8.6 H Lymph # 0.6 L Barnes # 1.1 H Seg Neutrophils % 84.8 H Seg Neuts % (Manual) Lymphocytes % (Manual) Seg Neutrophils # 10.9 H Seg Neutrophils # Man Lymphocytes # (Manual) POC ABG pH POC ABG pCO2 POC ABG pO2 Sodium Potassium Chloride Carbon Dioxide BUN Creatinine Glucose POC Glucose 133 H 129 H Lactic Acid Calcium Ionized Calcium Phosphorus AST Alkaline Phosphatase Lactate Dehydrogenase CK-MB (CK-2) Troponin T C-Reactive Protein Total Protein Albumin LDL Cholesterol Direct PTH Intact Fluid Total Protein Salicylates Crossmatch [facility] 07/12/17 07/12/17 07/12/17 04:37 05:39 11:41 WBC RBC Hgb Hct MCV MCHC RDW Plt Count Lymph % (Auto) Barnes % (Auto) Lymph # Barnes # Seg Neutrophils % Seg Neuts % (Manual) Lymphocytes % (Manual) Seg Neutrophils # Seg Neutrophils # Man Lymphocytes # (Manual) POC ABG pH POC ABG pCO2 POC ABG pO2 Sodium Potassium Chloride Carbon Dioxide BUN 29 H Creatinine 2.1 H Glucose 137 H POC Glucose 149 H 203 H Lactic Acid Calcium 8.0 L Ionized Calcium Phosphorus AST Alkaline Phosphatase Lactate Dehydrogenase CK-MB (CK-2) Troponin T C-Reactive Protein Total Protein Albumin LDL Cholesterol Direct PTH Intact Fluid Total Protein Salicylates Crossmatch [facility] 07/13/17 07/13/17 07/13/17 04:46 05:35 12:14 WBC RBC Hgb Hct MCV MCHC RDW Plt Count Lymph % (Auto) Barnes % (Auto) Lymph # Barnes # Seg Neutrophils % Seg Neuts % (Manual) Lymphocytes % (Manual) Seg Neutrophils # Seg Neutrophils # Man Lymphocytes # (Manual) POC ABG pH POC ABG pCO2 POC ABG pO2 Sodium Potassium Chloride Carbon Dioxide BUN 46 H Creatinine 2.8 H Glucose 128 H POC Glucose 139 H 243 H Lactic Acid Calcium 7.5 L Ionized Calcium Phosphorus AST Alkaline Phosphatase Lactate Dehydrogenase CK-MB (CK-2) Troponin T C-Reactive Protein Total Protein Albumin LDL Cholesterol Direct PTH Intact Fluid Total Protein Salicylates Crossmatch [facility] 07/13/17 07/13/17 07/14/17 17:33 23:48 05:32 WBC RBC Hgb Hct MCV MCHC RDW Plt Count Lymph % (Auto) Barnes % (Auto) Lymph # Barnes # Seg Neutrophils % Seg Neuts % (Manual) Lymphocytes % (Manual) Seg Neutrophils # Seg Neutrophils # Man Lymphocytes # (Manual) POC ABG pH POC ABG pCO2 POC ABG pO2 Sodium Potassium Chloride Carbon Dioxide BUN Creatinine Glucose POC Glucose 193 H 133 H 143 H Lactic Acid Calcium Ionized Calcium Phosphorus AST Alkaline Phosphatase Lactate Dehydrogenase CK-MB (CK-2) Troponin T C-Reactive Protein Total Protein Albumin LDL Cholesterol Direct PTH Intact Fluid Total Protein Salicylates Crossmatch [facility] 07/14/17 07/14/17 07/15/17 11:43 17:49 05:09 WBC RBC Hgb Hct MCV MCHC RDW Plt Count Lymph % (Auto) Barnes % (Auto) Lymph # Barnes # Seg Neutrophils % Seg Neuts % (Manual) Lymphocytes % (Manual) Seg Neutrophils # Seg Neutrophils # Man Lymphocytes # (Manual) POC ABG pH POC ABG pCO2 POC ABG pO2 Sodium Potassium Chloride Carbon Dioxide BUN Creatinine Glucose POC Glucose 143 H 195 H 61 L Lactic Acid Calcium Ionized Calcium Phosphorus AST Alkaline Phosphatase Lactate Dehydrogenase CK-MB (CK-2) Troponin T C-Reactive Protein Total Protein Albumin LDL Cholesterol Direct PTH Intact Fluid Total Protein Salicylates Crossmatch [facility] 07/15/17 07/15/17 07/15/17 12:00 12:52 12:52 WBC 13.6 H RBC 1.76 L Hgb 5.2 L* Hct 15.8 L* MCV MCHC RDW 16.1 H Plt Count Lymph % (Auto) 4.7 L Barnes % (Auto) 8.3 H Lymph # 0.6 L Barnes # 1.1 H Seg Neutrophils % 85.4 H Seg Neuts % (Manual) Lymphocytes % (Manual) Seg Neutrophils # 11.7 H Seg Neutrophils # Man Lymphocytes # (Manual) POC ABG pH POC ABG pCO2 POC ABG pO2 Sodium Potassium Chloride Carbon Dioxide BUN 54 H Creatinine 2.7 H Glucose 157 H POC Glucose 164 H Lactic Acid Calcium 7.1 L Ionized Calcium Phosphorus 1.90 L AST 50 H Alkaline Phosphatase 152 H Lactate Dehydrogenase CK-MB (CK-2) Troponin T C-Reactive Protein Total Protein 4.7 L Albumin 1.6 L LDL Cholesterol Direct PTH Intact Fluid Total Protein Salicylates Crossmatch [facility] 07/15/17 07/15/17 07/15/17 12:52 14:49 14:49 WBC RBC Hgb 6.5 L Hct 19.6 L* MCV MCHC RDW Plt Count Lymph % (Auto) Barnes % (Auto) Lymph # Barnes # Seg Neutrophils % Seg Neuts % (Manual) Lymphocytes % (Manual) Seg Neutrophils # Seg Neutrophils # Man Lymphocytes # (Manual) POC ABG pH POC ABG pCO2 POC ABG pO2 Sodium Potassium Chloride Carbon Dioxide BUN Creatinine Glucose POC Glucose Lactic Acid Calcium Ionized Calcium Phosphorus AST Alkaline Phosphatase Lactate Dehydrogenase CK-MB (CK-2) Troponin T C-Reactive Protein Total Protein Albumin LDL Cholesterol Direct PTH Intact 159.8 H Fluid Total Protein Salicylates Crossmatch [facility] See Detail 07/15/17 07/15/17 07/16/17 17:54 23:45 02:33 WBC RBC Hgb 7.0 L Hct 20.6 L MCV MCHC RDW Plt Count Lymph % (Auto) Barnes % (Auto) Lymph # Barnes # Seg Neutrophils % Seg Neuts % (Manual) Lymphocytes % (Manual) Seg Neutrophils # Seg Neutrophils # Man Lymphocytes # (Manual) POC ABG pH POC ABG pCO2 POC ABG pO2 Sodium Potassium Chloride Carbon Dioxide BUN Creatinine Glucose POC Glucose 216 H 126 H Lactic Acid Calcium Ionized Calcium Phosphorus AST Alkaline Phosphatase Lactate Dehydrogenase CK-MB (CK-2) Troponin T C-Reactive Protein Total Protein Albumin LDL Cholesterol Direct PTH Intact Fluid Total Protein Salicylates Crossmatch [facility] 07/16/17 07/16/17 07/16/17 05:32 08:32 11:59 WBC RBC Hgb 6.2 L Hct 18.9 L* MCV MCHC RDW Plt Count Lymph % (Auto) Barnes % (Auto) Lymph # Barnes # Seg Neutrophils % Seg Neuts % (Manual) Lymphocytes % (Manual) Seg Neutrophils # Seg Neutrophils # Man Lymphocytes # (Manual) POC ABG pH POC ABG pCO2 POC ABG pO2 Sodium Potassium Chloride Carbon Dioxide BUN Creatinine Glucose POC Glucose 174 H 206 H Lactic Acid Calcium Ionized Calcium Phosphorus AST Alkaline Phosphatase Lactate Dehydrogenase CK-MB (CK-2) Troponin T C-Reactive Protein Total Protein Albumin LDL Cholesterol Direct PTH Intact Fluid Total Protein Salicylates Crossmatch [facility] 07/16/17 07/16/17 07/16/17 12:46 18:04 21:23 WBC RBC Hgb 7.4 L Hct 22.1 L MCV MCHC RDW Plt Count Lymph % (Auto) Barnes % (Auto) Lymph # Barnes # Seg Neutrophils % Seg Neuts % (Manual) Lymphocytes % (Manual) Seg Neutrophils # Seg Neutrophils # Man Lymphocytes # (Manual) POC ABG pH 7.511 H POC ABG pCO2 POC ABG pO2 155 H Sodium Potassium Chloride Carbon Dioxide BUN Creatinine Glucose POC Glucose 52 L Lactic Acid Calcium Ionized Calcium Phosphorus AST Alkaline Phosphatase Lactate Dehydrogenase CK-MB (CK-2) Troponin T C-Reactive Protein Total Protein Albumin LDL Cholesterol Direct PTH Intact Fluid Total Protein Salicylates Crossmatch [facility] 07/16/17 07/17/17 07/17/17 23:51 05:01 05:17 WBC RBC Hgb Hct MCV MCHC RDW Plt Count Lymph % (Auto) Barnes % (Auto) Lymph # Barnes # Seg Neutrophils % Seg Neuts % (Manual) Lymphocytes % (Manual) Seg Neutrophils # Seg Neutrophils # Man Lymphocytes # (Manual) POC ABG pH POC ABG pCO2 POC ABG pO2 Sodium Potassium Chloride Carbon Dioxide BUN Creatinine Glucose 103 H POC Glucose 109 H < 40 L Lactic Acid Calcium Ionized Calcium Phosphorus AST Alkaline Phosphatase Lactate Dehydrogenase CK-MB (CK-2) Troponin T C-Reactive Protein Total Protein Albumin LDL Cholesterol Direct PTH Intact Fluid Total Protein Salicylates Crossmatch [facility] 07/17/17 07/17/17 07/17/17 12:39 17:35 17:44 WBC RBC Hgb 8.9 L Hct 26.7 L MCV MCHC RDW Plt Count Lymph % (Auto) Barnes % (Auto) Lymph # Barnes # Seg Neutrophils % Seg Neuts % (Manual) Lymphocytes % (Manual) Seg Neutrophils # Seg Neutrophils # Man Lymphocytes # (Manual) POC ABG pH POC ABG pCO2 POC ABG pO2 Sodium Potassium Chloride Carbon Dioxide BUN Creatinine Glucose POC Glucose 182 H 194 H Lactic Acid Calcium Ionized Calcium Phosphorus AST Alkaline Phosphatase Lactate Dehydrogenase CK-MB (CK-2) Troponin T C-Reactive Protein Total Protein Albumin LDL Cholesterol Direct PTH Intact Fluid Total Protein Salicylates Crossmatch [facility] 07/17/17 07/18/17 07/18/17 23:32 03:54 03:54 WBC 14.9 H RBC 2.78 L Hgb 8.9 L Hct 26.2 L MCV MCHC RDW 15.9 H Plt Count Lymph % (Auto) Barnes % (Auto) Lymph # Barnes # Seg Neutrophils % Seg Neuts % (Manual) Lymphocytes % (Manual) Seg Neutrophils # Seg Neutrophils # Man Lymphocytes # (Manual) POC ABG pH POC ABG pCO2 POC ABG pO2 Sodium Potassium Chloride Carbon Dioxide BUN 43 H Creatinine 2.6 H Glucose 219 H POC Glucose 190 H Lactic Acid Calcium 7.9 L Ionized Calcium Phosphorus AST Alkaline Phosphatase Lactate Dehydrogenase CK-MB (CK-2) Troponin T C-Reactive Protein Total Protein Albumin LDL Cholesterol Direct PTH Intact Fluid Total Protein Salicylates Crossmatch [facility] 07/18/17 07/18/17 07/18/17 05:37 12:28 17:44 WBC RBC Hgb Hct MCV MCHC RDW Plt Count Lymph % (Auto) Barnes % (Auto) Lymph # Barnes # Seg Neutrophils % Seg Neuts % (Manual) Lymphocytes % (Manual) Seg Neutrophils # Seg Neutrophils # Man Lymphocytes # (Manual) POC ABG pH POC ABG pCO2 POC ABG pO2 Sodium Potassium Chloride Carbon Dioxide BUN Creatinine Glucose POC Glucose 263 H 211 H 213 H Lactic Acid Calcium Ionized Calcium Phosphorus AST Alkaline Phosphatase Lactate Dehydrogenase CK-MB (CK-2) Troponin T C-Reactive Protein Total Protein Albumin LDL Cholesterol Direct PTH Intact Fluid Total Protein Salicylates Crossmatch [facility] 07/19/17 07/19/17 07/19/17 00:07 11:32 18:09 WBC RBC Hgb Hct MCV MCHC RDW Plt Count Lymph % (Auto) Barnes % (Auto) Lymph # Barnes # Seg Neutrophils % Seg Neuts % (Manual) Lymphocytes % (Manual) Seg Neutrophils # Seg Neutrophils # Man Lymphocytes # (Manual) POC ABG pH POC ABG pCO2 POC ABG pO2 Sodium Potassium Chloride Carbon Dioxide BUN Creatinine Glucose POC Glucose 68 L 129 H 176 H Lactic Acid Calcium Ionized Calcium Phosphorus AST Alkaline Phosphatase Lactate Dehydrogenase CK-MB (CK-2) Troponin T C-Reactive Protein Total Protein Albumin LDL Cholesterol Direct PTH Intact Fluid Total Protein Salicylates Crossmatch [facility] 07/19/17 07/20/17 07/20/17 23:59 05:29 12:03 WBC RBC Hgb Hct MCV MCHC RDW Plt Count Lymph % (Auto) Barnes % (Auto) Lymph # Barnes # Seg Neutrophils % Seg Neuts % (Manual) Lymphocytes % (Manual) Seg Neutrophils # Seg Neutrophils # Man Lymphocytes # (Manual) POC ABG pH POC ABG pCO2 POC ABG pO2 Sodium Potassium Chloride Carbon Dioxide BUN Creatinine Glucose POC Glucose 204 H 211 H 306 H Lactic Acid Calcium Ionized Calcium Phosphorus AST Alkaline Phosphatase Lactate Dehydrogenase CK-MB (CK-2) Troponin T C-Reactive Protein Total Protein Albumin LDL Cholesterol Direct PTH Intact Fluid Total Protein Salicylates Crossmatch [facility] 07/20/17 07/20/17 07/20/17 12:50 16:01 23:37 WBC RBC Hgb Hct MCV MCHC RDW Plt Count Lymph % (Auto) Barnes % (Auto) Lymph # Barnes # Seg Neutrophils % Seg Neuts % (Manual) Lymphocytes % (Manual) Seg Neutrophils # Seg Neutrophils # Man Lymphocytes # (Manual) POC ABG pH POC ABG pCO2 POC ABG pO2 128 H Sodium Potassium Chloride Carbon Dioxide BUN Creatinine Glucose POC Glucose 276 H 234 H Lactic Acid Calcium Ionized Calcium Phosphorus AST Alkaline Phosphatase Lactate Dehydrogenase CK-MB (CK-2) Troponin T C-Reactive Protein Total Protein Albumin LDL Cholesterol Direct PTH Intact Fluid Total Protein Salicylates Crossmatch [facility] 07/21/17 07/21/17 04:43 11:39 WBC RBC Hgb Hct MCV MCHC RDW Plt Count Lymph % (Auto) Barnes % (Auto) Lymph # Barnes # Seg Neutrophils % Seg Neuts % (Manual) Lymphocytes % (Manual) Seg Neutrophils # Seg Neutrophils # Man Lymphocytes # (Manual) POC ABG pH POC ABG pCO2 POC ABG pO2 Sodium Potassium Chloride Carbon Dioxide BUN Creatinine Glucose POC Glucose 300 H 241 H Lactic Acid Calcium Ionized Calcium Phosphorus AST Alkaline Phosphatase Lactate Dehydrogenase CK-MB (CK-2) Troponin T C-Reactive Protein Total Protein Albumin LDL Cholesterol Direct PTH Intact Fluid Total Protein Salicylates Crossmatch [facility] Allied health notes reviewed: nursing
[2017-07-21] MEDS ORDERED: NOVOLOG SUB-Q SCH (15:00)
--- NOTE | 2017-07-21 20:16 | Consultation ---
This EEG shows a background rhythm of theta activity, diffuse background slowing is noted. ____ spike wave activity is present. IMPRESSION: The EEG is diffusely abnormal related to a slowing, which is grade 4 encephalopathic changes. JOB# [id number]
[2017-07-22] MEDS: NOVOLOG SUB-Q SCH ×2 (00:17→05:42)
[2017-07-22] MEDS: FOLVITE PO SCH (09:27)
[2017-07-22] MEDS: ASPIRIN PO SCH (09:27)
[2017-07-22] MEDS: THERAGRAN-M Tab PO SCH (09:27)
[2017-07-22] MEDS: NORVASC PO SCH (09:27)
[2017-07-22] MEDS: PEPCID PO SCH (09:27)
[2017-07-22] MEDS: COREG PO SCH (09:28)
[2017-07-22] MEDS: HEPARIN SUB-Q SCH (09:28)
[2017-07-22] MEDS: ROCALTROL PO SCH (09:28)
[2017-07-22] MEDS: LEVEMIR SUB-Q SCH (09:28)
[2017-07-22 11:07] VITALS: BP 121/66
--- NOTE | 2017-07-22 12:06 | Progress Note ---
Assessment and Plan Impression * End-stage renal disease on maintenance hemodialysis * Status post cardiac arrest * Anemia * Respiratory failure * Encephalopathy * Hyperosmolar nonketotic state Recommendations * Continue hemodialysis on Mondays, Wednesdays and Fridays * Continue Epogen with dialysis * packed RBC transfusion as needed * Adjust diet and meds for ESRD state * Avoid nephrotoxins * Overall prognosis appears to be poor * Status post trach and PEG on 07/19/2017 * Check labs in the morning Subjective Date of service: 07/22/17 Principal diagnosis: Acute Hypoxemic Resp Failure; S/P Cardiac Arrest; Hyperosmolar Non-ketotic Interval history: Patient remains on the ventilator. Unresponsive. Currently on 28% FiO2. Objective - Vital Signs Vital signs: Vital Signs - 12hr 07/22/17 07/22/17 07/22/17 01:00 01:49 02:00 Temperature Pulse Rate 91 H 90 Respiratory 18 18 Rate Blood Pressure 128/66 123/66 O2 Sat by Pulse 100 100 Oximetry O2 Sat by Pulse 100 Oximetry [ Assessment] 07/22/17 07/22/17 07/22/17 03:00 03:07 04:00 Temperature 97.9 F Pulse Rate 87 84 91 H Respiratory 14 14 Rate Blood Pressure 121/63 121/63 128/66 O2 Sat by Pulse 100 100 100 Oximetry O2 Sat by Pulse Oximetry [ Assessment] 07/22/17 07/22/17 07/22/17 05:00 06:00 07:00 Temperature Pulse Rate 93 H 86 86 Respiratory 16 15 13 Rate Blood Pressure 125/66 122/62 122/62 O2 Sat by Pulse 100 100 100 Oximetry O2 Sat by Pulse Oximetry [ Assessment] 07/22/17 07/22/17 07/22/17 08:00 08:58 09:00 Temperature 97.5 F L Pulse Rate 85 85 94 H Respiratory 15 12 Rate Blood Pressure 125/69 137/70 128/71 O2 Sat by Pulse 100 100 100 Oximetry O2 Sat by Pulse Oximetry [ Assessment] 07/22/17 07/22/17 07/22/17 09:16 09:27 09:28 Temperature Pulse Rate 89 87 87 Respiratory 19 Rate Blood Pressure 132/71 132/71 132/71 O2 Sat by Pulse 99 Oximetry O2 Sat by Pulse 100 Oximetry [ Assessment] 07/22/17 07/22/17 07/22/17 10:01 11:00 11:05 Temperature Pulse Rate 88 83 83 Respiratory 25 H 15 15 Rate Blood Pressure 129/71 121/66 121/66 O2 Sat by Pulse 93 100 100 Oximetry O2 Sat by Pulse Oximetry [ Assessment] - General Appearance General appearance: chronically ill, intubated, frail EENT: ATNC, PERRL Neck: no JVD, no thyromegaly, no carotid bruit, supple, other (right IJ PermCath in place) Respiratory: Present: Clear to Ascultation Cardiology: regular, normal heart rate Gastrointestinal: normoactive bowel sounds, other (PEG tube in place) Integumentary: no rash, other (no edema) - Lab 07/18/17 03:54 07/18/17 03:54 Most recent lab results Calcium 7.9 mg/dL (8.4-10.2) L 07/18/17 03:54 Phosphorus 1.90 mg/dL (2.5-4.5) L 07/15/17 12:52 Magnesium 1.80 mg/dL (1.7-2.3) 07/04/17 14:10
--- NOTE | 2017-07-22 12:48 | Progress Note ---
Assessment and Plan Assessment and plan: 76 YO Male Prison Resident with HTN, DM, ESRD on HD(M,W,F), Severe Malnutrition, presents to ED for evaluation. Pt unable to provide history. Pt found to have new onset seizure at [facility] that was witnessed by SNF staff. EMS was notified and upon arrival patient was found to by stuporous. Pt transported to [facility] for evaluation. Pt seen and evaluated in ED and found to be in respiratory distress. Pt subsequently found to have asystolic arrest. Pt treated IAW ACLS protocol with return of perfusing cardiac rhythm. Pt found to have Acute respiratory failure and was intubated and placed on vent support. Pt also found to be hypotensive after cardiac arrest and placed on pressor support. Serum glucose found to be above 1000, and patient was in DKA. DKA protocol initiated. Pt admitted to ICU. Anoxic brain injury Acute Respiratory Failure, hypoxic Patient is intubated and on mechanical ventilation, off sedation Status post cardiac arrest Seizure disorder Sepsis with hypotension History of diarrhea DKA with diabetic coma - Patient was treated according to DKA protocol now resolved and on long-acting insulin ESRD on HD - Chronic respiratory failure on MV> 96 hours sp trache and PEG, planned for placement Severe Anemia - S/p blood transfusion - Will monitor H&H closely The high probability of a clinically significant, sudden or life threatening deterioration of the [CV, neurology, renal] system(s) required my full and direct attention, intervention and personal management. The aggregate critical care time was [32] minutes. This time is in addition to time spent performing reported procedures but includes the following: [x] Data Review and interpretation [x] Patient assessment and monitoring of vital signs [x] Documentation [x] Medication orders and management History Interval history: Patient was seen and evaluated this morning, patient in non communicative. Patient is off sedation. no vomiting, no seizures Hospitalist Physical - Physical exam Narrative exam: - Physical exam Narrative exam: Patient is intubated and on mechanical ventilation. The patient appeared well nourished and normally developed. Vital signs as documented. Head exam is unremarkable. No scleral icterus . Neck is without jugular venous distension, thyromegaly, or carotid bruits. Lungs are clear to auscultation. Cardiac exam reveals regular rate and Rhythm. First and second heart sounds normal. No murmurs, rubs or gallops. Abdominal exam reveals normal bowel sounds, no masses, no organomegaly and no aortic enlargement. Extremities are nonedematous and both femoral and pedal pulses are normal. 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 He is off sedation. - Constitutional Vitals: Temp Pulse Resp BP Pulse Ox 97.5 F L 83 15 121/66 100 07/22/17 08:00 07/22/17 11:05 07/22/17 11:05 07/22/17 11:05 07/22/17 11:05 General appearance: Present: mild distress, other (intubated, unresponsive) Results - Labs CBC & Chem 7: 07/18/17 03:54 07/18/17 03:54 Labs: Laboratory Last Values WBC 14.9 K/mm3 (4.5-11.0) H 07/18/17 03:54 RBC 2.78 M/mm3 (3.65-5.03) L 07/18/17 03:54 Hgb 8.9 gm/dl (11.8-15.2) L 07/18/17 03:54 Hct 26.2 % (35.5-45.6) L 07/18/17 03:54 MCV 94 fl (84-94) 07/18/17 03:54 MCH 32 pg (28-32) 07/18/17 03:54 MCHC 34 % (32-34) 07/18/17 03:54 RDW 15.9 % (13.2-15.2) H 07/18/17 03:54 Plt Count 285 K/mm3 (140-440) 07/18/17 03:54 Lymph % (Auto) [place] 07/18/17 03:54 [place] % (Auto) [place] 07/18/17 03:54 Eos % (Auto) [place] 07/18/17 03:54 Baso % (Auto) [place] 07/18/17 03:54 Lymph # [place] 07/18/17 03:54 [place] # Porter [place]gage 07/18/17 03:54 Eos # [place] 07/18/17 03:54 Baso # [place] 07/18/17 03:54 Add Manual Diff Complete 07/05/17 Unknown Total Counted 100 07/05/17 Unknown Seg Neutrophils % [place] 07/18/17 03:54 Seg Neuts % (Manual) 89.0 % (40.0-70.0) H 07/05/17 Unknown Band Neutrophils % 1.0 % 07/05/17 Unknown Lymphocytes % (Manual) 7.0 % (13.4-35.0) L 07/05/17 Unknown Reactive Lymphs % (Man) 0 % 07/05/17 Unknown Monocytes % (Manual) 3.0 % (0.0-7.3) 07/05/17 Unknown Eosinophils % (Manual) 0 % (0.0-4.3) 07/05/17 Unknown Basophils % (Manual) 0 % (0.0-1.8) 07/05/17 Unknown Metamyelocytes % 0 % 07/05/17 Unknown Myelocytes % 0 % 07/05/17 Unknown Promyelocytes % 0 % 07/05/17 Unknown Blast Cells % 0 % 07/05/17 Unknown Nucleated RBC % Not Reportable 07/05/17 Unknown Seg Neutrophils # Porter [place]gage 07/18/17 03:54 Seg Neutrophils # Man 19.8 K/mm3 (1.8-7.7) H 07/05/17 Unknown Band Neutrophils # 0.2 K/mm3 07/05/17 Unknown Lymphocytes # (Manual) 1.6 K/mm3 (1.2-5.4) 07/05/17 Unknown Abs React Lymphs (Man) 0.0 K/mm3 07/05/17 Unknown Monocytes # (Manual) 0.7 K/mm3 (0.0-0.8) 07/05/17 Unknown Eosinophils # (Manual) 0.0 K/mm3 (0.0-0.4) 07/05/17 Unknown Basophils # (Manual) 0.0 K/mm3 (0.0-0.1) 07/05/17 Unknown Metamyelocytes # 0.0 K/mm3 07/05/17 Unknown Myelocytes # 0.0 K/mm3 07/05/17 Unknown Promyelocytes # 0.0 K/mm3 07/05/17 Unknown Blast Cells # 0.0 K/mm3 07/05/17 Unknown WBC Morphology Not Reportable 07/05/17 Unknown Hypersegmented Neuts Not Reportable 07/05/17 Unknown Hyposegmented Neuts Not Reportable 07/05/17 Unknown Hypogranular Neuts Not Reportable 07/05/17 Unknown Smudge Cells Not Reportable 07/05/17 Unknown Toxic Granulation Not Reportable 07/05/17 Unknown Toxic Vacuolation Not Reportable 07/05/17 Unknown Dohle Bodies Not Reportable 07/05/17 Unknown Pelger-Huet Anomaly Not Reportable 07/05/17 Unknown Juana Rods Not Reportable 07/05/17 Unknown Platelet Estimate Appears decreased 07/05/17 Unknown Clumped Platelets Not Reportable 07/05/17 Unknown Plt Clumps, EDTA Not Reportable 07/05/17 Unknown Large Platelets Not Reportable 07/05/17 Unknown Giant Platelets Not Reportable 07/05/17 Unknown Platelet Satelliting Not Reportable 07/05/17 Unknown Plt Morphology Comment Not Reportable 07/05/17 Unknown RBC Morphology Not Reportable 07/05/17 Unknown Dimorphic RBCs Not Reportable 07/05/17 Unknown Polychromasia Not Reportable 07/05/17 Unknown Hypochromasia Not Reportable 07/05/17 Unknown Poikilocytosis 1+ 07/05/17 Unknown Anisocytosis 1+ 07/05/17 Unknown Microcytosis Few 07/05/17 Unknown Macrocytosis Not Reportable 07/05/17 Unknown Spherocytes Not Reportable 07/05/17 Unknown Pappenheimer Bodies Not Reportable 07/05/17 Unknown Sickle Cells Not Reportable 07/05/17 Unknown Target Cells Not Reportable 07/05/17 Unknown Tear Drop Cells Not Reportable 07/05/17 Unknown Ovalocytes Not Reportable 07/05/17 Unknown Helmet Cells Not Reportable 07/05/17 Unknown Kim-Ina Bodies Not Reportable 07/05/17 Unknown Garner Rings Not Reportable 07/05/17 Unknown Bianca Cells Not Reportable 07/05/17 Unknown Bite Cells Not Reportable 07/05/17 Unknown Crenated Cell Not Reportable 07/05/17 Unknown Elliptocytes Not Reportable 07/05/17 Unknown Acanthocytes (Spur) Not Reportable 07/05/17 Unknown Rouleaux Not Reportable 07/05/17 Unknown Hemoglobin C Crystals Not Reportable 07/05/17 Unknown Schistocytes Not Reportable 07/05/17 Unknown Malaria parasites Not Reportable 07/05/17 Unknown Morales Bodies Not Reportable 07/05/17 Unknown Hem Pathologist Commnt No 07/05/17 Unknown PT 13.1 Sec. (12.2-14.9) 07/18/17 09:04 INR 0.94 (0.87-1.13) 07/18/17 09:04 Heparin Anti-Xa, Unfract Negative (Negative) 07/10/17 10:07 POC ABG pH 7.425 (7.35-7.45) 07/20/17 12:50 POC ABG pCO2 44.6 (35-45) 07/20/17 12:50 POC ABG pO2 128 (80-105) H 07/20/17 12:50 POC ABG HCO3 29.3 07/20/17 12:50 POC ABG Total CO2 31 07/20/17 12:50 POC ABG O2 Sat 99 07/20/17 12:50 POC ABG Base Excess 5 07/20/17 12:50 FiO2 28 % 07/20/17 12:50 Sodium 138 mmol/L (137-145) 07/18/17 03:54 Potassium 4.7 mmol/L (3.6-5.0) D 07/18/17 03:54 Chloride 99.2 mmol/L (98-107) 07/18/17 03:54 Carbon Dioxide 24 mmol/L (22-30) 07/18/17 03:54 Anion Gap 20 mmol/L 07/18/17 03:54 BUN 43 mg/dL (9-20) H 07/18/17 03:54 Creatinine 2.6 mg/dL (0.8-1.5) H 07/18/17 03:54 Estimated GFR 29 ml/min 07/18/17 03:54 BUN/Creatinine Ratio 17 % 07/18/17 03:54 Glucose 219 mg/dL (75-100) H 07/18/17 03:54 POC Glucose 195 (70-105) H 07/22/17 09:30 Osmolality 357 Mosm/kg 07/02/17 15:35 Lactic Acid 2.30 mmol/L (0.7-2.0) H* 07/05/17 Unknown Calcium 7.9 mg/dL (8.4-10.2) L 07/18/17 03:54 Ionized Calcium 4.6 mg/dL (4.8-5.6) L 07/04/17 14:10 Phosphorus 1.90 mg/dL (2.5-4.5) L 07/15/17 12:52 Magnesium 1.80 mg/dL (1.7-2.3) 07/04/17 14:10 Total Bilirubin < 0.20 mg/dL (0.1-1.2) 07/15/17 12:52 AST 50 units/L (5-40) H 07/15/17 12:52 ALT 14 units/L (7-56) 07/15/17 12:52 Alkaline Phosphatase 152 units/L (35-129) H 07/15/17 12:52 Lactate Dehydrogenase 880 units/L (91-180) H 07/06/17 08:30 Total Creatine Kinase 58 units/L (55-170) 07/05/17 12:40 CK-MB (CK-2) 1.8 ng/mL (0.0-4.0) 07/05/17 12:40 CK-MB (CK-2) Rel Index 3.1 (0-4) 07/05/17 12:40 Troponin T 0.277 ng/mL (0.00-0.029) H* 07/05/17 12:40 C-Reactive Protein 9.90 mg/dL (0.00-1.30) H 07/05/17 Unknown Total Protein 4.7 g/dL (6.3-8.2) L 07/15/17 12:52 Albumin 1.6 g/dL (3.9-5) L 07/15/17 12:52 Albumin/Globulin Ratio 0.5 % 07/15/17 12:52 Triglycerides 83 mg/dL (2-149) 07/04/17 14:10 Cholesterol 83 mg/dL (50-199) 07/04/17 14:10 LDL Cholesterol Direct 22 mg/dL (50-130) L 07/04/17 14:10 HDL Cholesterol 45 mg/dL (40-59) 07/04/17 14:10 Cholesterol/HDL Ratio 1.84 % 07/04/17 14:10 Serotonin Release Assay See scanned report 07/10/17 10:07 TSH 3.200 mlU/mL (0.270-4.200) 07/02/17 Unknown PTH Intact 159.8 pg/mL (15-65) H 07/15/17 12:52 Urine Color Yellow (Yellow) 07/02/17 17:25 Urine Turbidity Clear (Clear) 07/02/17 17:25 Urine pH 5.0 (5.0-7.0) 07/02/17 17:25 Ur Specific [place] 1.018 (1.003-1.030) 07/02/17 17:25 Urine Protein 100 mg/dl mg/dL (Negative) 07/02/17 17:25 Urine Glucose (UA) >=500 mg/dL (Negative) 07/02/17 17:25 Urine Ketones Neg mg/dL (Negative) 07/02/17 17:25 Urine Blood Sm (Negative) 07/02/17 17:25 Urine Nitrite Neg (Negative) 07/02/17 17:25 Urine Bilirubin Neg (Negative) 07/02/17 17:25 Urine Urobilinogen < 2.0 mg/dL (<2.0) 07/02/17 17:25 Ur Leukocyte Esterase Neg (Negative) 07/02/17 17:25 Urine WBC (Auto) 1.0 /HPF (0.0-6.0) 07/02/17 17:25 Urine RBC (Auto) 2.0 /HPF (0.0-6.0) 07/02/17 17:25 U Epithel Cells (Auto) 1.0 /HPF (0-13.0) 07/02/17 17:25 Fluid Type Pleural 07/06/17 16:53 Fluid Color Yellow 07/06/17 16:53 Fluid Appearance Clear 07/06/17 16:53 Fluid WBC 9 /mm3 07/06/17 16:53 Fluid RBC 6 /mm3 07/06/17 16:53 Fluid Seg Neutrophils 51.2 % 07/06/17 16:53 Fluid Lymphocytes 43.9 % 07/06/17 16:53 Fluid Reactive Lymphs 0 % 07/06/17 16:53 Fluid Monocytes 4.9 % 07/06/17 16:53 Fluid Eosinophils 0 % 07/06/17 16:53 Fluid Basophils 0 % 07/06/17 16:53 Fluid Total Protein < 3.0 (15.0-45.0) L 07/06/17 Unknown Fluid LDH 132 07/06/17 Unknown Fluid Comment 07/06/17 16:53 Salicylates < 0.3 mg/dL (2.8-20.0) L 07/02/17 Unknown Urine Opiates Screen Presumptive negative 07/02/17 17:25 Urine Methadone Screen Presumptive negative 07/02/17 17:25 Acetaminophen < 15.0 ug/mL (10.0-30.0) 07/02/17 Unknown Ur Barbiturates Screen Presumptive negative 07/02/17 17:25 Ur Phencyclidine Scrn Presumptive negative 07/02/17 17:25 Ur Amphetamines Screen Presumptive negative 07/02/17 17:25 U Benzodiazepines Scrn Presumptive negative 07/02/17 17:25 Urine Cocaine Screen Presumptive negative 07/02/17 17:25 U Marijuana (THC) Screen Presumptive negative 07/02/17 17:25 Drugs of Abuse Note Disclamer 07/02/17 17:25 Plasma/Serum Alcohol < 0.01 gm% (0-0.07) 07/02/17 Unknown Heparin-induced Plt Ab Negative (Negative) 07/10/17 10:07 UF Heparin High Dose 0 % Release 07/10/17 10:07 TREVOR UFH Low Dose 0.1 0 % Release 07/10/17 10:07 TREVOR UFH Low Dose 0.5 0 % Release 07/10/17 10:07 Blood Type O POSITIVE 07/15/17 14:49 Antibody Screen Positive 07/15/17 14:49 Prewarmed Antibody Srcn Negative 07/15/17 14:49 Antibody Identification Anti-M 07/15/17 14:49 Crossmatch See Detail 07/15/17 14:49 Crossmatch Prewarmed See Detail 07/15/17 14:49
--- NOTE | 2017-07-22 12:49 | Discharge Summary ---
Providers - Providers Date of Admission: 07/02/17 20:17 Attending physician: JOSIANE QUINTERO MD 07/02/17 20:18 Consult to Physician [CONS] Routine Consulting Provider: JOLLY VERDUZCO Reason For Exam: resp failure Place consult to:: Notified:: yes If yes, spoke with:: Dr. Oliver Time called:: 04:45 Comment:: RT spoke to pt about abnormal ABG 07/03/17 04:52 Consult to Physician [CONS] Routine Consulting Provider: JESICA BINGHAM Reason For Exam: ESRD Place consult to:: Answering Service/Dr. Bingham Notified:: yes If yes, spoke with:: Héctor Time called:: 08:27 07/03/17 13:41 Consult to Dietitian/Nutrition [CONS] Routine Physician Instructions: Reason For Exam: Reason for Consult: Write/Manage Tube Feeding 07/03/17 14:14 Consult to Physician [CONS] Routine Consulting Provider: NATO SCHWARTZ Reason For Exam: anoxic encephalopathy; sz Place consult to:: Dr. Schwartz Notified:: yes Time called:: 14:24 Comment:: placed on list 07/04/17 12:46 Consult to Cardiology [CONS] Routine Consulting Provider: STEVE RODAS Reason For Exam: s/p cardiac arrest 07/05/17 11:11 Consult to Physician [CONS] Routine Consulting Provider: LAURA AL Reason For Exam: Elevated WBC Place consult to:: Laura Montaño Notified:: Yes Phone number called:: [phone] Was contact made?: Yes If yes, spoke with:: Laura Ward Time called:: 11:36 07/06/17 12:32 Consult to Physician [CONS] Routine Consulting Provider: NEO MITCHELL Reason For Exam: melena, anemia Place consult to:: Neo Lancaster Notified:: Yes Phone number called:: [phone] Was contact made?: Yes If yes, spoke with:: Paige Time called:: 18:51 07/13/17 11:24 Consult to Physician [CONS] Routine Consulting Provider: CARSON HUNTER I Reason For Exam: Tracheostomy Placement Place consult to:: Surgery [facility] Notified:: Dr. Almonte Phone number called:: [phone] Was contact made?: Yes If yes, spoke with:: Dr. 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 Pt unable to provide history. Pt found to have new onset seizure at longterm that was witnessed by SNF staff. EMS was notified and upon arrival patient was found to by stuporous. Pt transported to [facility] for evaluation. Pt seen and evaluated in ED and found to be in respiratory distress. Pt subsequently found to have asystolic arrest. Pt treated IAW ACLS protocol with return of perfusing cardiac rhythm. Pt found to have Acute respiratory failure and was intubated and placed on vent support. Pt also found to be hypotensive after cardiac arrest and placed on pressor support. Serum glucose found to be above 1000, and patient was in DKA. DKA protocol initiated. He received a course of IV antibiotics for treatment of colitis, Pt admitted to ICU. He unfortunately did not recover his mental status and became in a persistent vegetative state. . His poor prognosis was dw with his NOK, who then wanted him to have trache and PEG. He then had trache and PEG, and was transferred to [facility] Diagnosis Anoxic brain injury Acute Respiratory Failure, hypoxic on MV > 96 hours Status post cardiac arrest Seizure disorder Septic shock Colitis Persistent vegetative state DKA with diabetic coma ESRD on HD Severe Anemia Disposition: [id number] MEDICARE CERT LT Time spent for discharge: 33 minutes Core Measure Documentation - Palliative Care Palliative Care/ Comfort Measures: Not Applicable - Core Measures Any of the following diagnoses?: none Exam - Physical Exam Narrative exam: - Physical exam Narrative exam: Patient is intubated and on mechanical ventilation. The patient appeared well nourished and normally developed. Vital signs as documented. Head exam is unremarkable. No scleral icterus . Neck is without jugular venous distension, thyromegaly, or carotid bruits. Lungs are clear to auscultation. Cardiac exam reveals regular rate and Rhythm. First and second heart sounds normal. No murmurs, rubs or gallops. Abdominal exam reveals normal bowel sounds, no masses, no organomegaly and no aortic enlargement. Extremities are nonedematous and both femoral and pedal pulses are normal. 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 He is off sedation. - Constitutional Vitals: Temp Pulse Resp BP Pulse Ox 97.5 F L 83 15 121/66 100 07/22/17 08:00 07/22/17 11:05 07/22/17 11:05 07/22/17 11:05 07/22/17 11:05 Plan Follow up with: PRIMARY CARE, [Primary Care Provider] - 3-5 Days
== END 2017-07-22 12:24 | DRG 4 ==
LOC: ED 14:46 → CC1 20:17
PROVIDERS: ADMIT Internal Medicine; ATTEND Internal Medicine
PROC: 5A1955Z Respiratory Ventilation, Greater than 96 Consecutive Hours (ICD-10-PCS; principal; 2017-07-02)
PROC: 0BH17EZ Insertion of Endotracheal Airway into Trachea, Via Natural or Artificial Opening (ICD-10-PCS; 2017-07-02)
PROC: 02HV33Z Insertion of Infusion Device into Superior Vena Cava, Percutaneous Approach (ICD-10-PCS; 2017-07-02)
PROC: 4A033R1 Measurement of Arterial Saturation, Peripheral, Percutaneous Approach (ICD-10-PCS; 2017-07-02)
PROC: 3E0234Z Introduction of Serum, Toxoid and Vaccine into Muscle, Percutaneous Approach (ICD-10-PCS; 2017-07-03)
PROC: 5A1D70Z Performance of Urinary Filtration, Intermittent, Less than 6 Hours Per Day (ICD-10-PCS; 2017-07-04)
PROC: 0W993ZZ Drainage of Right Pleural Cavity, Percutaneous Approach (ICD-10-PCS; 2017-07-06)
PROC: 5A1D70Z Performance of Urinary Filtration, Intermittent, Less than 6 Hours Per Day (ICD-10-PCS; 2017-07-06)
PROC: 5A1D70Z Performance of Urinary Filtration, Intermittent, Less than 6 Hours Per Day (ICD-10-PCS; 2017-07-09)
PROC: 5A1D70Z Performance of Urinary Filtration, Intermittent, Less than 6 Hours Per Day (ICD-10-PCS; 2017-07-11)
PROC: 5A1D70Z Performance of Urinary Filtration, Intermittent, Less than 6 Hours Per Day (ICD-10-PCS; 2017-07-13)
PROC: 30233N1 Transfusion of Nonautologous Red Blood Cells into Peripheral Vein, Percutaneous Approach (ICD-10-PCS; 2017-07-16)
PROC: 5A1D70Z Performance of Urinary Filtration, Intermittent, Less than 6 Hours Per Day (ICD-10-PCS; 2017-07-16)
PROC: 5A1D70Z Performance of Urinary Filtration, Intermittent, Less than 6 Hours Per Day (ICD-10-PCS; 2017-07-18)
PROC: 0B113F4 Bypass Trachea to Cutaneous with Tracheostomy Device, Percutaneous Approach (ICD-10-PCS; 2017-07-19)
PROC: 0DH63UZ Insertion of Feeding Device into Stomach, Percutaneous Approach (ICD-10-PCS; 2017-07-19)
PROC: 5A1D70Z Performance of Urinary Filtration, Intermittent, Less than 6 Hours Per Day (ICD-10-PCS; 2017-07-20)
DX: A41.9 Sepsis, unspecified organism (principal); I21.A1 Myocardial infarction type 2; N18.6 End stage renal disease; E11.11 Type 2 diabetes mellitus with ketoacidosis with coma; G93.41 Metabolic encephalopathy; I46.9 Cardiac arrest, cause unspecified; E43 Unspecified severe protein-calorie malnutrition; J96.01 Acute respiratory failure with hypoxia; G93.1 Anoxic brain damage, not elsewhere classified; I13.2 Hypertensive heart and chronic kidney disease with heart failure and with stage 5 chronic kidney disease, or end stage renal disease; E87.1 Hypo-osmolality and hyponatremia; J90 Pleural effusion, not elsewhere classified; I50.9 Heart failure, unspecified; E11.22 Type 2 diabetes mellitus with diabetic chronic kidney disease; G40.909 Epilepsy, unspecified, not intractable, without status epilepticus; D69.6 Thrombocytopenia, unspecified; D63.1 Anemia in chronic kidney disease; Z79.899 Other long term (current) drug therapy; Z79.4 Long term (current) use of insulin; Z79.82 Long term (current) use of aspirin; Z23 Encounter for immunization
CPT/HCPCS: 32555; 36415; 36600; 70450; 71010; 74000; 74176; 80048; 80053; 80061; 80307; 80320; 81001; 82140; 82270; 82330; 82550; 82553; 82803; 82947; 82962; 83605; 83615; 83735; 83930; 83970; 84100; 84160; 84443; 84484; 85007; 85014; 85018; 85025; 85027; 85610; 86022; 86140; 86850; 86870; 86900; 86901; 86920; 86922; 87040; 87070; 87116; 87205; 88112; 88305; 89051; 90471; 90686; 90732; 93005; 93010; 93308; 93321; 93325; 94002; 94003; 94640; 95819; 96361; 96374; 96375; G0008; G0009; G0480; J0171; J0360; J0461; J0690; J0692; J0696; J0885; J1644; J1815; J1818; J2060; J2250; J2543; J2704; J3010; J3370; J7030; J7040; J7050; P9016